=== PATIENT | female | born 1960 | race African-American/Black ===

== ENCOUNTER 2025-03-10 06:10 | Inpatient (IN) | payer MEDICARE, MEDICAID, SELFPAY ==
[2025-03-10] VITALS (9 sets, daily range): BP systolic 152–180; BP diastolic 76–98; PULSE 86–110; RESP 14–24; TEMP 36.2–36.7; O2SAT 96–100; BMI 45.2
--- NOTE | 2025-03-10 | ECHO_ITS ---
Patient Info Name: Emily Ibrahim Age: 64 years : 1960 Gender: Female Ht: 60 in Wt: 231 lbs BSA: 2.17 m2 HR: 110 bpm BP: 180 / 83 mmHg Technical Quality: Poor Exam Date: 03/10/2025 1:58 PM Patient Status: O Admit Date: 03/10/2025 Exam Type: CA echo doppler color flow Complete two-dimensional, color flow and Doppler transthoracic echocardiogram is performed. Staff Referring Physician: Joanie Carmen Automation Manager: Kathrin Restrepo Attending Provider: Андрей Sarkar Summary 1. Complete two-dimensional, color flow and Doppler transthoracic echocardiogram is performed. 2. Technically difficult study and patient refuse to complete full study ECHO. 3. In the available views, there is normal left ventricular size with hyperdynamic systolic function. 4. The right ventricle is normal in size and systolic function. 5. There are no significant valvular abnormalities. Left Ventricle The left ventricle is normal in size with hyperdynamic systolic function. There is concentric left ventricular remodeling. The left ventricular ejection fraction is visually estimated to be greater than 70%. Right Ventricle The right ventricle is normal in size and systolic function. Left Atria The left atrium is normal size. Right Atria The right atrium is normal size. Atrial Septum The atrial septum is not well visualized. Aortic Valve The aortic valve is trileaflet and sclerotic. There is no aortic regurgitation. There is no aortic stenosis. Pulmonic Valve The pulmonic valve is not well visualized. Mitral Valve The mitral valve is normal. There is no mitral regurgitation. Tricuspid Valve The tricuspid valve is normal. There is mild tricuspid regurgitation. Pericardium/Pleural There is trivial pericardial effusion. Inferior Vena Cava Inferior vena cava is not well visualized. Aorta The aortic root at the level of the sinus of Valsalva measures 2.8 cm in diameter. Left Ventricular Outflow Tract Name Value Normal LVOT 2D LVOT Diameter 1.9 cm LVOT Doppler LVOT Peak Velocity 123 cm/s LVOT Peak Gradient 6 mmHg LVOT Mean Gradient 4 mmHg LVOT VTI 21 cm LVOT VTI/AV VTI Ratio 0.6 LVOT Stroke Volume 61 ml LVOT CO 7.1 l/min LVOT CI 3.3 l/min/m2 Pulmonic Valve Name Value Normal PV Doppler PV Peak Velocity 150 cm/s PV Peak Gradient 9 mmHg Tricuspid Valve Name Value Normal TV Regurgitation Doppler TR Peak Velocity 321 cm/s TR Peak Gradient 27 mmHg Estimated PAP/RSVP RA Pressure 10 mmHg <=5 PA Systolic Pressure 51 mmHg <36 RV Systolic Pressure 51 mmHg <36 TV Annular TDI TV Lateral Kita s' Velocity 14.7 cm/s >=9.5 Aortic Valve Name Value Normal AV Doppler AV Peak Velocity 196 cm/s AV Peak Gradient 15 mmHg AV Mean Gradient 8 mmHg AV VTI 34 cm AV Area (Cont Eq VTI) 1.8 cm2 >=3.0 AV Area (Cont Eq Johnathon) 1.8 cm2 AV DI (Johnathon) 0.63 AV Regurgitation 2D LVOT Area 2.9 cm2 Ventricles Name Value Normal LV Dimensions 2D/MM IVS Diastolic Thickness (2D) 1.1 cm 0.6-1.0 LVID Diastole (2D) 4.2 cm 3.8-5.2 LVIW Diastolic Thickness (2D) 1.2 cm 0.6-0.9 LVID Systole (2D) 2.4 cm 2.2-3.5 LVOT Diameter 1.9 cm LV Mass (2D Cubed) 174.48 g 67.00-162.00 LV Mass Index (2D Cubed) 80 g/m2 43-95 Relative Wall Thickness (2D) 0.59 <=0.42 LV Fractional Shortening/Ejection Fraction 2D/MM LV Fractional Shortening (2D) 43 % 27-45 LV EF (2D Teichholz) 75 % Atria Name Value Normal LA Dimensions LA Volume (4C A-L) 56 ml LA Volume (BP A-L) 50 ml RA Dimensions RA Systolic Major [place] Length (4C) 4.6 cm 2.2-2.8 RA Area (4C) 13.2 cm2 <=18.0 Report Signatures
--- NOTE | ~2025-03-10 | CT_ITS ---
CLINICAL INDICATION: End-stage renal disease now nonverbal with malnutrition. COMPARISON: None. TECHNIQUE: An enhanced CT of the abdomen and pelvis was performed utilizing multislice spiral Saygent ue reconstructed at 5 mm slice thickness. Coronal and sagittal reconstructions were performed. This CT examination was performed utilizing dose reduction techniques. DLP: 1665 mGy-cm FINDINGS/OBSERVATIONS: Lung: Trace bibasilar atelectasis. Calcified nodule within the left lower lobe suggesting prior granulomatous disease. No retrocardiac density is appreciated on cross sectional imaging. The remainder of the lungs are clear. The heart is enlarged, without pericardial effusion. Mediastinum: No pathologically enlarged or morphologically suspicious lymph nodes are identified within the medias tinum, bilateral axilla, within the soft tissues of the anterior chest wall. Soft tissues of the chest: Heterogeneous attenuation of the thyroid gland, a nonspecific finding. Bones of the chest: No acute fracture. No lytic or blastic lesions are identified. Liver: The liver enhances homogeneously and is not enlarged. Gallbladder and biliary system: The gallbladder is distended, but otherwise unremarkable. Pancreas: The pancreas enhances homogeneously, without ductal dilatation. Spleen: Punctate calcifications identified within the splenic parenchyma, suggesting prior granulomat ous disease. The remainder of the spleen otherwise enhances homogeneously and is not enlarged. Kidneys: The bilateral kidneys are atrophic, without hydronephrosis or renal calculi. Adrenal glands: Unremarkable. Gastrointestinal tract: Small hiatal hernia is present. Fecal stasis within the colon. Appendix: The air-filled appendix is of normal caliber (axial series, images 170 through 203). Vasculature: Moderate calcified atherosclerotic disease is present. No aneurysmal dilatation. Lymph nodes: Scattered nonpathologically enlarged lymph nodes within the root of the mesentery and deep in the pel vis. Pelvic structures: The bladder is only minimally distended and otherwise unremarkable. The uterus is retroverted and retroflexed and contains multiple calcifications, likely representing p rior fibroid disease. Body wall and musculoskeletal: An oval-shaped focus of fluid attenuation is identified within the soft tissues of the anterior abdom inal wall measuring 3.6 x 5.7 x 5.7 cm (anterior to posterior x medial to lateral x cranial to caudal dimension). Adjacent postoperative change is noted, suggesting a perioperative seroma. Age-appropriate degenerative disease. IMPRESSION: Likely perioperative seroma along the anterior abdominal wall. Findings suggesting prior granulomatous disease. No evidence of bowel obstruction. No hiatal hernia as was suspected on the plain film evaluation. Reviewed, dictated and finalized at location A.
--- NOTE | ~2025-03-10 | XR_ITS ---
XR chest 1V portable Ordering provider: Joanie Carmen MD History: 64 years Female with . AMS . Comparison: None. FINDINGS: MEDIASTINUM: The cardiac silhouette is moderately enlarged.. Congestive leti. LUNGS: No effusions or pneumothorax. Opacification the left lower lobe is seen suggestive of atelecta sis versus pneumonia with possible effusion. Bilateral septal thickening is seen which may indicate u nderlying pulmonary edema. Clinical correlation advised. OTHER: No free air under the diaphragm. IMPRESSION: Cardiomegaly with congestive leti and minimal interstitial thickening which is suggestive of cardiac decompensation and pulmonary edema. Left basilar atelectasis versus pneumonia with possible. Clinical correlation and follow-up advised. Reviewed, dictated and finalized at location A. IMPRESSION: Cardiomegaly with congestive leti and minimal interstitial thickening which is suggestive of cardiac decompensation and pulmonary edema. Left basilar atelectasis versus pneumonia with possible. Clinical correlation a nd follow-up advised.
--- NOTE | ~2025-03-10 | XR_ITS ---
EXAMINATION: XR abdomen gastric tube rechec DATE: 03/21/2025 18:24 INDICATION: Nasogastric tube visible on the mouth TECHNIQUE: A supine view of the abdomen and lower chest was obtained for evaluation of feeding tube placement. COMPARISON: None. FINDINGS: Nasogastric tube tip in proximal side port project over the body the stomach. No dilated loops of gas -filled bowel in the visualized abdomen pelvis to suggest obstruction. Calcified nodule left lower margie ng zone and calcified left hilar lymph nodes consistent with old granulomatous disease. Heart size is normal. No pleural effusion. IMPRESSION: 1. Nasogastric tube tip in proximal side port in the body the stomach. Reviewed, dictated and finalized at location A.
--- NOTE | ~2025-03-10 | XR_ITS ---
EXAMINATION: XR abdomen gastric tube rechec DATE: 03/21/2025 22:17 INDICATION: Nasogastric tube placement TECHNIQUE: A supine view of the abdomen and lower chest was obtained for evaluation of feeding tube placement. COMPARISON: 03/21/2025 at 7:43 PM FINDINGS: Nasogastric tube tip in proximal side port in the body the stomach. Small amount of likely injected c ontrast within the stomach. No dilated gas-filled bowel to suggest obstruction. Calcified nodule at t he left lower lung zone consistent with old granulomatous disease. No pleural effusion. Heart size is normal. IMPRESSION: 1. Nasogastric tube tip and proximal side port in the body the stomach. Reviewed, dictated and finalized at location A.
--- NOTE | ~2025-03-10 | US_ITS ---
EXAM: US carotid duplex BI - 03/21/2025 9:02 CDT History: 64 years old Female with episode of change in mental status Technique: Real-time sonographic images of the bilateral carotid and vertebral arterial systems were obtained. Color Doppler sonography and spectral waveform analysis were performed. Comparison: None available. Findings: . Right Velocities (cm/sec): Right Common carotid Peak systolic velocity: 47 Right internal carotid Peak systolic velocity: 45 End diastolic velocity: 12 Right ICA/CCA ratio: 1 Right External carotid Peak systolic velocity: 108 Right Vertebral: Antegrade flow Left Velocities (cm/sec): Left Common carotid Peak systolic velocity: 51 Left internal carotid Peak systolic velocity: 83 End diastolic velocity: 28 Left ICA/CCA ratio: 1.6 Left External carotid Peak systolic velocity: 78 Left Vertebral: Antegrade flow Impression: No evidence of flow-limiting stenosis in the carotid arteries. Reviewed, dictated and finalized at location A. Impression: No evidence of flow-limiting stenosis in the carotid arteries.
--- NOTE | ~2025-03-10 | MR_ITS ---
EXAMINATION: MR brain/brain stem wo con DATE: 03/18/2025 13:41 INDICATION: ams TECHNIQUE: Magnetic resonance imaging (MRI) of the brain and brainstem was performed without intraven ous contrast. Sequences included sagittal and axial T1-weighted SE, axial diffusion-weighted, axial 3 D CYDNEY, eADC, and MIN IP, axial T2-weighted FLAIR, and axial T2-weighted Propeller. Apparent diffusi on coefficient (ADC) maps were created. COMPARISON: CT brain 03/10/2025. FINDINGS: Severe motion artifact is present. Multiple sequences are nondiagnostic. No large area of abnormal re stricted diffusion to suggest acute ischemic infarct although this evaluation is limited. No MRI evid ence of large hemorrhage or extra-axial collection although this determination is again limited. Sugg estion of left medial occipital susceptibility artifact could be related to subtle calcification or h emosiderin deposition or simply artifactual. Severe confluent or patchy and confluent white matter hy perintensity, likely representing severen small vessel ischemic disease. Mild generalized parenchymal volume loss. The basilar cisterns are patent. Flow voids are preserved, as visualized. Paranasal sin uses are grossly within normal limits. Displaced lens in the right globe. IMPRESSION: Severely motion limited examination. No definite evidence of large intracranial hemorrhage or large vessel infarct. Displaced lens in the right globe. Consider repeat imaging, with sedation if clinically appropriate. Reviewed, dictated and finalized at location K.
--- NOTE | ~2025-03-10 | XR_ITS ---
EXAMINATION: XR lumbar puncture diagnostic DATE: 03/21/2025 15:22 INDICATION: Altered mental status TECHNIQUE: After informed consent was obtained from the patient's family, the patient was taken into the fluoros copy suite and placed in the prone position on the fluoroscopy table. A limited timeout was then performed as per protocol (given patient's nonverbal status). The skin overlying the L3/L4 level was prepped and draped in usual sterile fashion. Subcutaneous 1% lidocaine was used for local anesthesia. An 18 gauge spinal needle was advanced under fluoroscopic gu idance. The needle was removed and the entry site was cleaned and dressed. There were no immediate c omplications. Fluoroscopy exposure time was 2.7 minutes. The total number of images was 2. DOSE AREA PRODUCT: 18.9 Gy-cm2 FINDINGS: Real-time fluoroscopy demonstrates the needle at the L3/L4 level. No opening pressure was obtained, given the observed slow output from the spinal access needle. 22 mL of clear, colorless cerebrospinal fluid was collected in 4 separate tubes and sent for the requ ested studies. IMPRESSION: Technically successful fluoroscopy-guided lumbar puncture at the level of L3/L4, as detailed above. Reviewed, dictated and finalized at location A. IMPRESSION: Technically successful fluoroscopy-guided lumbar puncture at the level of L3/L4 , as detailed above.
--- NOTE | ~2025-03-10 | XR_ITS ---
EXAMINATION: XR abdomen gastric tube rechec DATE: 03/21/2025 19:46 INDICATION: Nasogastric tube placement TECHNIQUE: A supine view of the abdomen and lower chest was obtained for evaluation of feeding tube placement. COMPARISON: 03/21/2025 at 6:06 PM FINDINGS: Nasogastric tube has advanced with distal tip in proximal side port in the region of the gastric antr um. No dilated loops of gas-filled bowel in the visualized upper abdomen. Calcified nodule left lower lung zone consistent with old granulomatous disease. No other airspace opacities, pulmonary edema or pleural effusion. Heart size is normal. IMPRESSION: 1. Is a gastric tube tip in proximal side port at the gastric antrum. Could consider withdrawal by [address] the tip in proximal side port in the distal body of the stomach. Reviewed, dictated and finalized at location A. IMPRESSION: 1. Is a gastric tube tip in proximal side port at the gastric antrum. Could con outpatient admitting clerk withdrawal by [address] the tip in proximal side port in the distal body of the stomach.
--- NOTE | ~2025-03-10 | XR_ITS ---
Portable chest x-ray Comparison: 03/10/2025 Clinical History: Pulmonary edema Findings: Possible mild bibasilar haziness, left worse than right. Cardiomediastinal silhouette is stable. Bones and soft tissues are unremarkable. Impression: Possible mild bibasilar pulmonary edema. Consider pneumonia in the left lung base. Reviewed, dictated and finalized at [facility]. Impression: Possible mild bibasilar pulmonary edema. Consider pneumonia in the left lung ba se.
--- NOTE | ~2025-03-10 | XR_ITS ---
EXAMINATION: XR chest 1V portable Exam Date/Time: 03/22/2025 16:15 CDT HISTORY: Critical ABGs Comparison: 03/22/2025. RESULT: Lines, tubes, and devices: Dialysis catheter, terminating in the right atrium. Lungs and pleura: Clear. Cardiomediastinal silhouette: Stable. Other: No acute osseous or upper abdominal finding. IMPRESSION: No acute cardiopulmonary process. Reviewed, dictated and finalized at location K.
--- NOTE | ~2025-03-10 | XR_ITS ---
EXAMINATION: XR chest 1V portable Exam Date/Time: 03/22/2025 18:03 CDT HISTORY: intubation Comparison: Same date at 4:19 PM. FINDINGS/IMPRESSION: Interval intubation, endotracheal tube terminates 2.3 cm above the iris. Stable right IJ dialysis c atheter. Stable subdiaphragmatic NG tube. Increasing patchy groundglass and reticular opacities may represent interstitial edema and atelectasi s. Infection/aspiration not excluded Reviewed, dictated and finalized at location K.
--- NOTE | ~2025-03-10 | CT_ITS ---
EXAMINATION: CT brain wo con DATE: 03/22/2025 20:55 INDICATION: ams . TECHNIQUE: Computed tomography (CT) of the head was performed without intravenous contrast. The mA wa s adjusted according to patient size. Iterative reconstruction technique was employed. The dose-lengt h product was 681.00 mGy-cm. COMPARISON: 03/10/2025; MR brain 03/18/2025. FINDINGS: No acute intracranial hemorrhage or extra-axial fluid collection. No hydrocephalus, mass, or herniation. No acute ischemic infarct. Unremarkable dural venous sinus attenuation. No acute osseous abnormality. Nasogastric tube with mild nasopharyngeal and right sphenoid aerated secretions. The remaining aerate d spaces are clear. Mild atrophy and severe chronic white matter change. Focal old bilateral thalamic lacunar infarcts. A therosclerotic intracranial calcification. Displaced right lens. Left basal ganglia calcification. IMPRESSION: No acute intracranial process. Reviewed, dictated and finalized at location K.
--- NOTE | ~2025-03-10 | XR_ITS ---
EXAMINATION: XR soft tissue neck DATE: 03/21/2025 18:29 INDICATION: Nasogastric tube coiled in the mouth TECHNIQUE: AP and lateral views of the soft tissues of the face and neck were obtained. COMPARISON: Abdomen radiograph dated 03/21/2025 6:06 PM FINDINGS: The nasogastric tube extends through the left nasal cavity and coils in the oral cavity bef ore extending caudally in expected position to at least the distal esophagus on the current imaging w ith distal tip in proximal side port projecting over the body the stomach on the immediately prior ab domen radiograph. Prevertebral soft tissues are unremarkable. Calcified nodule projecting over the le ft midlung zone along with calcified left mediastinal lymph nodes consistent with old granulomatous d isease. Remainder the visualized lungs are clear. IMPRESSION: 1. Nasogastric tube coils in the oral cavity before extending caudally through the esophagus. Reviewed, dictated and finalized at location A.
--- NOTE | ~2025-03-10 | XR_ITS ---
CHEST RADIOGRAPH CLINICAL HISTORY: Trialysis placement . COMPARISON: 03/19/2025 TECHNIQUE: Single portable view of the chest. FINDINGS Nasogastric tube identified projecting into the left upper quadrant, presumably within the stomach. Interval placement of a temporary hemodialysis catheter with its tip projecting over the proximal rig ht atrium, in good position. No right-sided pneumothorax is appreciated. The remainder of the cardiomediastinal silhouette is otherwise unremarkable. Interval improvement of the left-sided pleural effusion, seen on previous examination. The right hemithorax is overall clear. IMPRESSION: Temporary hemodialysis catheter in good position and ready for immediate use. Reviewed, dictated and finalized at location A.
--- NOTE | ~2025-03-10 | XR_ITS ---
Exam: NG tube placement HISTORY: Minimally responsive 64-year-old woman presents after failed NG tube placement on the floor for image guided placement COMPARISON: Reference is made to a CT examination of the chest abdomen and pelvis dated 03/20/2025. TECHNIQUE: Utilizing a pediatric NG tube, placement was performed via the left nares. Tube was hooked to suction with copious amounts of gastric contents evacuated. FINDINGS: Nasogastric tube extends into the left upper quadrant, presumably within the stomach. IMPRESSION: Nasogastric tube in good position and ready for immediate use. Reviewed, dictated and finalized at location A.
--- NOTE | ~2025-03-10 | CT_ITS ---
CT head without contrast Indication: Altered mental status Technique: Serial scans were obtained through the brain without the administration of contrast. Dose reduction technique was used on this scan by utilizing automated exposure control and iterative recon struction technique. The dose-length product (DLP) was 1362.00 mGy-cm. Findings: There is no evidence of intracranial hemorrhage, mass lesion, or acute infarct. The ventri cles and subarachnoid spaces are dilated, consistent with mild atrophy. Low attenuation regions are seen within the periventricular white matter bilaterally, likely representing changes from chronic mi crovascular ischemic disease. There is no evidence of edema, mass effect or midline shift. The visu alized paranasal sinuses and mastoid air cells are clear. Impression: No intracranial hemorrhage, mass, or acute infarct. Atrophy and chronic white matter changes, as above. Reviewed, dictated and finalized at location . Impression: No intracranial hemorrhage, mass, or acute infarct. Atrophy and chronic white matter changes, as above.
--- NOTE | ~2025-03-10 | XR_ITS ---
XR chest 1V portable 03/19/2025 11:07 Indication: Shortness of breath Procedure: AP portable chest Comparison: 03/16/2025 Findings: Cardiomegaly. Retrocardiac consolidation may represent pneumonia and/or atelectasis. Possib le small effusion. No pneumothorax. Impression: 1: Retrocardiac opacification may represent pneumonia and/or atelectasis. Reviewed, dictated and finalized at location A. Impression: 1: Retrocardiac opacification may represent pneumonia and/or atelectasis.
--- NOTE | 2025-03-10 06:24 | ECG_ITS ---
Test Date: 2025-03-10 07:28:46 Measurements Intervals [place] Rate: 90 P: 66 [place]: 161 QRS: -41 QRSD: 142 T: 31 QT: 421 QTc: 516 Interpretive Statements SINUS RHYTHM POSSIBLE LEFT ATRIAL ENLARGEMENT [-0.1mV P-WAVE IN V1/V2] LEFT AXIS DEVIATION [QRS AXIS < -30] RIGHT BUNDLE BRANCH BLOCK [120+ ms QRS DURATION, UPRIGHT V1, 40+ ms S IN I/aVL/V4/V5/V6] ABNORMAL ELECTROCARDIOGRAM No previous ECG available for comparison Electronically Signed On 03-11-2025 09:49:23 CDT by Nir Gagnon M.D.
--- NOTE | 2025-03-10 07:22 | PC.NURSE ---
Unable to obtain blood at this time, EDP aware states she will try for IV access and blood work when pt has calmed down
--- NOTE | 2025-03-10 07:33 | ED_ITS ---
HPI - Altered Mental Status General Chief Complaint: Altered Mental Status Stated Complaint: AMS FROM HD Time Seen by Provider: 03/10/25 06:59 History of Present Illness HPI narrative: Patient with history of ESRD on dialysis Monday presents here after dialysis noticed that she had been more confused for the last few sessions, sent here from dialysis. Patient is denying any complaints other than she is angry to be here. at bedside, reports the last time she has been confused has been due to UTI. Related Data Allergies Allergy/AdvReac Type Severity Reaction Status Date / Time Penicillins Allergy Unknown Verified 03/10/25 07:31 Review of Systems 2 Review of Systems: All systems reviewed & are unremarkable except as noted in HPI and below Exam 2 Narrative: EXAMINATION OF ORGAN SYSTEMS/BODY AREAS: Constitutional: Vital signs per nursing GENERAL:[No acute distress, non-toxic appearing.] HEAD: Normal with no signs of head trauma. EYES: EOMI, conjunctiva normal ENT: Hearing grossly intact LUNGS: Nonlabored breathing. HEART: [Regular rate and rhythm] ABD: [Soft], [nontender to palpation] EXT: Normal range of motion; numbing cream still on left AV SKIN: [No rashes or lesions.] NEURO: [Alert. No gross focal sensory or strength deficits. Unable to tell me her name or why she is here] PSYCH: Kicking out at myself and staff, uncooperative Course Vital Signs Vital signs: Vital Signs Temperature 98.1 F 03/10/25 06:18 Pulse Rate 96 03/10/25 06:18 Respiratory Rate 18 03/10/25 06:18 Blood Pressure 170/80 H 03/10/25 06:18 Pulse Oximetry 100 03/10/25 06:18 Oxygen Delivery Room Air 03/10/25 06:18 Temperature 98.1 F 03/10/25 06:18 Pulse Rate 103 H 03/10/25 12:16 Respiratory Rate 16 03/10/25 12:16 Blood Pressure 163/81 H 03/10/25 12:16 Pulse Oximetry 97 03/10/25 12:16 Oxygen Delivery Room Air 03/10/25 06:18 Procedures EJ/Peripheral Line Arm R: EJ/Peripheral Line Date: 03/10/25 EJ/Peripheral Line Time: 09:16 Skin Cleansed in Sterile Fashion: Yes Ultrasound Guided: Yes Size (gauge): 20 IV Secured and Dressing Applied: Yes Patient Tolerated Procedure: well and no complications MDM - Altered Mental Status MDM Narrative Medical decision making narrative: Patient presents here due to altered mental status that has been ongoing for a week; sent here from dialysis. Patient no distress, alert here and moving all extremities, however extremely uncooperative and unable to answer basic orientation questions. Long discussion with patient and at bedside. Patient does not demonstrate capacity at this time, she is unable to even tell me her name or why she is here, she tells me to get out of her room and that she will christen me; per her in the room, she is never like this, he has never seen her so violent and confused before, he is her medical decision maker and would like us to proceed with continuing with workup and treatment is needed to figure out why she has been confused. He requests we put her to sleep to accomplish this. I did initially start with small dose of olanzapine, unfortunately no significant improvement in behavior. Additional ativan ordered. EKG - 12-Lead: Performed at 0728. Interpreted by me. Difficult to fully evaluate due to artifact [Sinus rhythm]. Rate 90. [Normal] axis. IL-interval 161. QRS duration 142. QTc 516. [No ST segment elevation or depression]. USIV and blood draw obtained by myself with nursing assistance and assistance from at bedside. Chest x-ray showing possible pneumonia, and she has been coughing here at bedside, so I will tentatively start her on antibiotics, discussed with associate merchandise planner and hospitalist for admission. Re-evaluation, she is a little bit more back to her baseline, is now able to state her name. Lab Data 03/10/25 09:17 03/10/25 09:17 Labs: Lab Results 03/10/25 03/10/25 Range/Units 09:17 09:39 WBC 7.1 (4.5-10.0) K/mm3 RBC 4.08 L (4.2-5.4) M/mm3 Hgb 10.8 L (12.0-15.0) g/dL Hct 35.3 L (37.0-47.0) % MCV 86.5 (80-100) fl MCH 26.5 (26-34) pg MCHC 30.6 L (32-36) g/dl RDW 17.1 H (11.5-14.5) % Plt Count 325 (150-375) k/mm3 MPV 9.6 (7.4-10.4) fl Immature Gran % (Auto) 0.3 (0-0.5) % Neut % (Auto) 51.3 (45.5-73.1) % Lymph % (Auto) 28.3 (18.3-44.2) % Camp % (Auto) 15.1 H (2.6-8.5) % Eos % (Auto) 3.9 (0-4.4) % Baso % (Auto) 1.1 (0.2-1.2) % Lymph # (Auto) 2.01 (0.9-3.2) K/mm3 Camp # (Auto) 1.1 H (0.1-0.6) K/mm3 Eos # (Auto) 0.3 (0-0.3) K/mm3 Baso # (Auto) 0.1 (0.0-0.1) K/mm3 Abs Immat Gran (auto) 0.02 (0.00-0.031) K/mm3 Absolute Neuts (auto) 3.6 (1.3-6.7) K/mm3 Absolute Nucleated RBC 0.000 (0.0-0.012) K/mm3 Nucleated RBC % 0.0 (0.0-0.2) % PT 13.1 (11.1-14.7) Seconds INR 1.0 APTT 27.3 (22.3-36.8) Seconds Sodium 139 (137-145) mmol/L Potassium 3.9 (3.4-5.0) mmol/L Chloride 105 (98-107) mmol/L Carbon Dioxide 26 (22-30) mmol/L Anion Gap 8 (4-12) mmol/L BUN 18 H (7-17) mg/dL Creatinine 8.64 H (0.7-1.0) mg/dL Estim Creat Clear Calc 7 ml/min Estimated GFR 5 L (59 - ) Glucose 100 (65-110) mg/dL Lactic Acid 1.2 (0.7-2.0) mmol/L Calcium 9.6 (8.4-10.2) mg/dL Magnesium 2.1 (1.6-2.3) mg/dL Total Bilirubin 0.9 (0.2-1.3) mg/dL AST 25 (14-36) U/L ALT 9 (6-35) U/L Alkaline Phosphatase 104 (38-126) U/L Total Protein 6.6 (6.3-8.2) g/dL Albumin 3.5 (3.5-5.1) g/dL Urine Color Yellow (Yellow) Urine Appearance Clear (Clear) Urine pH 8.5 (5.0-9.0) Ur Specific Christine 1.013 (1.001-1.035) Urine Protein 3+ H (Negative) mg/dL Urine Glucose (UA) Trace H (Negative) mg/dL Urine Ketones Trace H (Negative) mg/dL Ur Blood (Man) Negative (Negative) Urine Nitrate Negative (Negative) Urine Bilirubin Negative (Negative) Urine Urobilinogen 1.0 (<2.0) mg/dL Add Ur Microanalysis Reviewed Leukocyte Esterase Rfl Negative (Negative) NATALIE/UL Urine RBC 0-2 (0-2) /hpf Urine WBC 0-5 (0-3) /hpf Ur Squamous Epith Cells Occasional (Few) /hpf Urine Bacteria None seen /hpf Urine Casts 3-5 Discharge Plan Discharge Clinical Impression: Altered mental status, Pneumonia Patient Disposition: Still a Patient Condition: Stable
--- OUTSIDE RECORDS SUMMARY | 2025-03-10 07:38 | XMS_ITS ---
Author Organization [facility] Address [address] [place] [address] Care Team Providers Care Site Supervisor Name Role Phone Reyes Motley DO Primary Care Prov ider Edgardo Luong MD Unavailable [phone] Reyes Hawley MD Unavailable [phone] Ntetie Etienne MD Unavailable [phone] Dialysis Access Sites Type Status Location Placement Date Removal Da te AV graft Active Left Forearm - Anterior 01/03/2022 Procedures Procedure Name Priority Date/Time Associated Diagnosis Comments US HEMODIALYSIS ACCESS Schedule Routine, Read Routine (OP Routine) 01/30/2025 2:36 PM CDT ESRD (end stage renal disease) on dialysis (HCC) Other specified complication of vascular prosthetic devices, implants and grafts, initial encounter EGFR Routine 01/24/2025 8:38 AM CDT DIFFERENTIAL AUTO Routine 01/24/2025 8:3 8 AM CDT CBC WITH AUTO DIFFERENTIAL Routine 01/24/2025 8:38 AM CDT RENAL FUNCTION PANEL Routine 01/24/2025 8:38 AM CDT POCT GLUCOSE DEVICE Routine 01/24/2025 8 :16 AM CDT HEMODIALYSIS Routine 01/23/2025 10:19 PM CDT POCT GLUCOSE DEVICE Routine 01/23/2025 7 :[address] ABDOMEN PELVIS WO CONTRAST ED Urgent/IP Urgent 01/23/2025 12:23 PM CDT EGFR Routine 01/23/2025 7:09 AM CDT RENAL FUNCTION PANEL Routine 01/23/2025 7:09 AM CDT POCT GLUCOSE DEVICE Routine 01/23/2025 5 :36 AM CDT POCT GLUCOSE DEVICE Routine 01/22/2025 7 :57 PM CDT POCT GLUCOSE DEVICE Routine 01/22/2025 4 :08 PM CDT POCT GLUCOSE DEVICE Routine 01/22/2025 1 2:09 PM CDT HEMODIALYSIS Routine 01/22/2025 7:49 AM CDT POCT GLUCOSE DEVICE Routine 01/22/2025 7 :28 AM CDT EGFR Routine 01/22/2025 6:12 AM CDT DIFFERENTIAL AUTO Routine 01/22/2025 6:1 2 AM CDT CBC WITH AUTO DIFFERENTIAL Routine 01/22/2025 6:12 AM CDT RENAL FUNCTION PANEL Routine 01/22/2025 6:12 AM CDT POCT GLUCOSE DEVICE Routine 01/22/2025 5 :44 AM CDT HEPATITIS B SURFACE ANTIGEN Routine 01/21/2025 11:36 PM CDT HEPATITIS B SURFACE ANTIBODY (IMMUNE STATUS) Routine 01/21/2025 11:36 PM CDT POCT GLUCOSE DEVICE Routine 01/21/2025 8 :24 PM CDT POCT GLUCOSE DEVICE Routine 01/21/2025 4 :44 PM CDT POCT GLUCOSE DEVICE Routine 01/21/2025 1 1:39 AM CDT POCT GLUCOSE DEVICE Routine 01/21/2025 7 :40 AM CDT EGFR Routine 01/21/2025 6:55 AM CDT DIFFERENTIAL AUTO Routine 01/21/2025 6:5 5 AM CDT RENAL FUNCTION PANEL Routine 01/21/2025 6:55 AM CDT CBC WITH AUTO DIFFERENTIAL Routine 01/21/2025 6:55 AM CDT POCT GLUCOSE DEVICE Routine 01/20/2025 1 1:05 PM CDT TROPONIN T HIGH-SENSITIVITY 4-HR Timed 01/20/2025 7:25 PM CDT URINALYSIS, MICROSCOPIC ONLY STAT 01/20/2025 6:03 PM CDT TROPONIN T HIGH-SENSITIVITY 2-HOUR Timed 01/20/2025 6:03 PM CDT URINALYSIS AND REFLEX TO MICROSCOPIC AND CULTURE STAT 01/20/2025 6:[address] HEAD AND NECK WO CONTRAST (C) Critical/Life-T hreatening 01/20/2025 3:43 PM CDT EGFR STAT 01/20/2025 3:21 PM CDT COMPREHENSIVE METABOLIC PANEL STAT 01/20/2025 3:21 PM CDT TROPONIN T HIGH-SENSITIVITY SERIES (BASELINE, 2HR, 4HR, 6HR) STAT 01/20/2025 3:21 PM CDT POC BLOOD GAS AND CHEMISTRIES, VENOUS Routine 01/20/2025 2:54 PM CDT EGFR STAT 01/20/2025 2:26 PM CDT DIFFERENTIAL AUTO STAT 01/20/2025 2:2 6 PM CDT APTT STAT 01/20/2025 2:26 PM CDT PROTIME-INR STAT 01/20/2025 2:26 PM CDT COMPREHENSIVE METABOLIC PANEL STAT 01/20/2025 2:26 PM CDT CBC WITH AUTO DIFFERENTIAL STAT 01/20/2025 2:26 PM CDT ECG 12-LEAD STAT 01/20/2025 2:[address] STROKE PROTOCOL WO CONTRAST Critical/Life-T hreatening 01/20/2025 2:12 PM CDT POCT GLUCOSE DEVICE Routine 01/20/2025 2 :06 PM CDT POCT GLUCOSE DEVICE Routine 01/07/2025 1 2:19 PM CDT FL FLUOROSCOPY < 1 HOUR IP Routine 01/07/2025 11:54 AM CDT AK AN PROCEDURE PLACEHOLDER Routine 01/07/2025 11:25 AM CDT AK AN ELECTIVE SUPRAGLOTTIC AIRWAY Routine 01/07/2025 11:25 AM CDT DECLOTTING ARTERIOVENOUS - ARM 01/07/2025 11:09 AM CDT ESRD (end stage renal disease) on dialysis (HCC) POC BLOOD GAS AND CHEMISTRIES, VENOUS Routine 01/07/2025 9:57 AM CDT HEMOGLOBIN A1C Routine 01/07/2025 9:55 AM CDT EGFR STAT 01/06/2025 9:30 AM CDT DIFFERENTIAL AUTO STAT 01/06/2025 9:3 0 AM CDT BASIC METABOLIC PANEL STAT 01/06/2025 9:30 AM CDT CBC WITH AUTO DIFFERENTIAL STAT 01/06/2025 9:30 AM CDT HEMODIALYSIS ACCESS Schedule Routine, Read Routine (OP Routine) 01/06/2025 9:18 AM CDT Dependence on renal dialysis End stage renal disease (HCC) Other specified complication of vascular prosthetic devices, implants and grafts, initial encounter LIPID PANEL Routine 04/13/2023 10:17 AM CDT End stage renal disease (HCC) HEPATITIS C ANTIBODY Routine 04/13/2023 10:16 AM CDT End stage renal disease (HCC) OCCULT BLOOD, FECAL (FIT) Routine 04/30/2018 4:05 AM CDT from Last 3 Months or Most Recently Relevant to Health Maintenance Allergies Active Allergy Reactions Criticality Noted Date Comments Amoxicillin Itching,Nausea only,Vomiting,Hives High Reaction: Itching, Nausea, Vomiting, Hives, Ampicillin Hives,Itching,Nausea only,Vomiting High Reaction: Hives, Itching, Nausea, Vomiting, Celecoxib Nausea Only Low 06/21/2017 Cephalexin Stomach upset,Nausea And Vomiting Low 11/01/2020 Ciprofloxacin Itching Low 04/27/2020 Iodine Vomiting Low 11/21/2018 Losartan Anxiety,Nausea & Vomiting,Vomiting Low 04/29/2020 Penicillins Hives,Itching,Nausea only,Vomiting,Anaphy laxis,Nausea & Vomiting High 09/18/2014 Reaction: Hives, Itching, Nausea, Vomiting, Shellfish Hives Medium 02/06/2019 Shellfish Containing Products Hives,Itching,Stomac h upset Medium 08/15/2018 Sulfa (Sulfonamide Antibiotics) Nausea only Low 02/06/2019 04/29/2020 ok to give berny HUYNH/ Teressa PanD Trimethoprim Other (See comments) Low 05/05/2020 Medications blood pressure monitor kit Monitor blood pressure readings as instructed 1 each 11/22/19 19 Active atorvastatin (LIPITOR) 80 mg tablet Take 1 tablet (80 mg total) by mouth nightly 10/23/19 21 Active cholecalcifero l (VITAMIN D-3) 5,000 unit tabletIndicati ons:Twice weekly Take 5 tablets (25,000 Units total) by mouth 2 (two) times a week Active allopurinoL (ZYLOPRIM) 100 mg tablet Take 2 tablets (200 mg total) by mouth daily Active cyclobenzaprin e (FLEXERIL) 10 mg tabletIndicati ons:Muscle Spasm Take 1 tablet (10 mg total) by mouth 3 (three) times a day as needed 10/09/19 21 Active Contour Next Test Strips strip 08/06/20 21 Active calcitRIOL (ROCALTROL) 0.25 mcg capsule TAKE 1 CAPSULE BY MOUTH EVERY DAY 90 capsule 03/25/20 22 Active spironolactone (ALDACTONE) 50 mg tablet TAKE 1 TABLET (50 MG TOTAL) BY MOUTH EVERY OTHER DAY 45 tablet 10/28/19 23 Active lidocaine-pril ocaine cream APPLY TO ACCESS SITE 30 MINS PRIOR TO DIALYSIS 3 TIMES A WEEK 12/16/19 23 Active sevelamer (RENVELA) 800 mg tablet TAKE 1 TABLET BY MOUTH THREE TIMES A DAY WITH MEALS 11/29/19 23 Active acetaminophen 500 mg capsuleIndicat ions:Fever,Susan n Take 2 capsules (1,000 mg total) by mouth every 6 (six) hours 60 tablet 05/26/20 23 Active hydrALAZINE (APRESOLINE) 25 mg tabletIndicati ons:hypertensi on Take 1 tablet (25 mg total) by mouth 3 (three) times a day Active montelukast (SINGULAIR) 10 mg tablet Take 1 tablet (10 mg total) by mouth nightly 30 tablet 11 07/09/20 24 Active benzonatate (TESSALON) 100 mg capsule TAKE 1 CAPSULE BY MOUTH THREE TIMES A DAY NEEDED FOR COUGH 30 capsule 1 08/09/20 24 Active ondansetron (ZOFRAN) 4 mg tablet Take 1 tablet (4 mg total) by mouth every 6 (six) hours 12 tablet 10/07/19 25 Active Additional Information Patient taking differently:4 mg oralEvery 8 hours PRN, nausea, Reported on 01/30/2025 ipratropium-al buteroL (DUO-NEB) 0.5-2.5 mg/3 mL nebulizer solutionIndica tions:Cough, unspecified type,Asthma, unspecified asthma severity, unspecified whether complicated, unspecified whether persistent Take 3 mL by nebulization every 8 (eight) hours as needed for wheezing or shortness of breath 270 mL 3 11/27/19 25 Active amLODIPine (NORVASC) 10 mg tablet 12/12/19 25 Active fluticasone propionate (FLONASE) 50 mcg/actuation nasal spray Administer 2 sprays into each nostril daily 11/08/19 25 Active oxyCODONE (ROXICODONE) 5 mg immediate release tablet Take 1 tablet (5 mg total) by mouth every 12 (twelve) hours as needed for pain Active sodium chloride (OCEAN) 0.65 % drops Administer 2 sprays into affected nostril(s) every 1 hour as needed 10/13/19 24 Active albuterol HFA (PROVENTIL HFA,VENTOLIN HFA,PROAIR HFA) 90 mcg/actuation inhaler Inhale 2 puffs every 4 (four) hours as needed for wheezing 1 each 11 12/13/19 25 Active cetirizine (ZyrTEC) 10 mg tablet Take 0.5 tablets (5 mg total) by mouth daily 15 tablet 3 12/13/[address] (PROTONIX) 40 mg EC tablet TAKE 1 TABLET BY MOUTH EVERY DAY 90 tablet 01/02/20 25 Active aspirin 81 mg enteric coated tablet Take 1 tablet (81 mg total) by mouth daily 12/17/19 25 Active famotidine (PEPCID) 20 mg tablet Take 1 tablet (20 mg total) by mouth 2 (two) times a day Active carvediloL (COREG) 6.25 mg tablet Take 1 tablet (6.25 mg total) by mouth 2 (two) times a day with meals Active fluticasone propion-salmet Abdon (Wixela Inhub) 250-50 mcg/dose diskus inhaler INHALE 1 PUFF 2 (TWO) TIMES A DAY RINSE MOUTH WITH WATER AFTER USE 60 each 2 02/25/20 25 Active fluticasone propion-salmet Abdon (Wixela Inhub) 250-50 mcg/dose diskus inhaler INHALE 1 PUFF 2 (TWO) TIMES A DAY RINSE MOUTH WITH WATER AFTER USE 60 each 01/28/20 25 025 Discontinued Active Problems Problem Noted Date Diagnosed Date Nausea 01/23/2025 Acute encephalopathy 01/20/2025 ESRD (end stage renal disease) on dialysis 01/06 Assessment & Plan (01/30/2025 2:52 PM CDT): Status post left forearm loop thrombectomy 01/07/2025. Patient is dialyzing without any issues good bruit and thrill on exam. Sutures intact and removed in the office today. Follow up in the [facility] in 3 months for routine surveillance with AV duplex. SBO (small bowel obstruction) 05/23/2023 Assessment & Plan (05/27/2023 12:50 PM CDT): CT AP w/ IV contrast with 3 ventral wall hernias; middle and inferior hernia with bowel. Inferiormost hernia with at least partial SBO and mesenteric edema. Abdomen soft and moderately TTP Left of umbilicus with no rebound tenderness, non- peritonitic -NPO, NGT to ILWS, serial abdominal exams, daily labs, no mIVF as ESRD and anuric, will replete NGT output as needed 05/23 AFVSS, abd soft, TTP neo-umbilicus, NGT 400cc output, inconsistent flatus, CTM 05/24 abd. soft; +flatus, no BM, NG 1.1L 05/25 abd remains soft, +flatus, NG output 350, NG clamp trial passed and NG removed 05/26 CLD started and advanced to regular, awaiting BM 05/27: Tolerating regular diet. -n/v. +flatus. -BM, however she typically has a bowel movement every few days. HDS. Afebrile. Plan: discharge home today with family. No surgery completed during this admission, no surgical pathology pending, no cultures pending. No general surgery follow-up required. Follow-up with PCP for ongoing healthcare management. Gout 05/23/2023 Assessment & Plan (05/23/2023 9:52 AM CDT): Hold home allopurinol and prn colchicine while NPO Diastolic heart failure with preserved ejection fraction 05/23/2023 Assessment & Plan (05/27/2023 12:55 PM CDT): Home meds: amlodipine, ASA, carvedilol, furosemide, hydralazine, spironolactone Last echo 09/08/22 - EF >70, Gr2 Diastolic dysfunction Hold all home meds while NPO. PRN IV Hydralazine and Labetalol available for HTN. 05/27: Hypotensive today; states this is typical for her after dialysis. She has no dizziness, lightheadedness, chest pain, n/v. Able to ambulate and transfer. Holding BP medication. Follow up with established providers and dialysis clinic outpatient upon discharge. Hold home BP medications upon discharge. Follow-up with PCP by phone on Monday, 05/29 for BP management. Keep log of blood pressures at least twice daily. She voices understanding and suggested that she would call her PCP right away Monday morning. Chronic pain 05/23/2023 Assessment & Plan (05/23/2023 9:51 AM CDT): Hold home flexeril and oxycodone while NPO. Start IV dilaudid 0.2mg q4h prn Discharge planning issues 05/23/2023 Assessment & Plan (05/27/2023 12:53 PM CDT): 05/22 Eval in ED for SBO, admit for nonop management. Nephro c/s for HD 05/23 NPO, NGT, ARBF, continue nonop management 05/24 Dialysis today, NG LIWS 05/26 CLD started and advanced to regular diet, OT rec home with assist, PT rec home with HH PT 05/27: Discharge home today with family and HH PT/OT. Altered behavior 09/08/2022 Altered mental status 09/08/2022 Multiple falls 09/08/2022 Encounter for preoperative assessment 02/11/2022 End stage renal disease 01/27/2022 Overview (01/27/2022): Added automatically from request for surgery [id number] Assessment & Plan (01/06/2025 10:11 AM CDT): End-stage renal disease on dialysis through a right forearm loop graft which is now thrombosed was dialyzed last week without any issues. She has consistently lost to follow-up. Presented to dialysis today with a loss of bruit and thrill. She presented to the [facility] dialysis access center to confirm suspicion of thrombosed graft. Co potassium is 4.1. She will be scheduled for thrombectomy tomorrow with Dr. Hawley. Discussed the procedure with the patient answered all questions at this time. Also rediscussed the necessity for routine follow-up visits. Assessment & Plan (05/27/2023 12:52 PM CDT): AVF LUE, HD MWF. Home meds: sevelamer - hold while NPO 05/22 Nephro consulted. HD in ED today, -1800. Continue MWF scheduled 05/24, 05/26 Dialysis 05/27: Dialysis yesterday. Electrolytes stable. Hypotensive today; states this is typical for her. She has no dizziness, lightheadedness, chest pain, n/v. Holding BP medication. Followup with established providers and dialysis clinic outpatient upon discharge. Assessment & Plan (12/27/2022 1:33 PM CDT): History of end-stage renal disease currently on dialysis via a left forearm loop AV graft. She was lost to follow-up. Last seen in January of 2022 status post thrombectomy and balloon angioplasty and stenting to her left basilic vein. Good bruit and thrill on exam. She denies any issues with dialysis. Av duplex today shows a patent graft. Re-educated patient on the need for consistent monitoring of the graft and serial duplexes. She is agreeable. Plan: Follow-up in 3 months with a routine left upper extremity duplex Assessment & Plan (03/04/2022 2:43 PM CDT): Impression: Patient has a left forearm AV loop graft that recently underwent thrombectomy, balloon angioplasty and stenting to left basilic vein. Patient has not yet started dialysis. She is currently being followed by Dr. Luong. Audible bruit and palpable thrill noted throughout AV graft. Plan: Sutures and ellen removed from incision sites. Patient to follow-up in 2 months for re-evaluation with new baseline AV scan in the [facility]. Patient instructed that if dialysis is needed to be started sooner than her 2 month follow-up, her AV graft may be utilized for dialysis. Patient voices understanding. Stage 5 chronic kidney disease not on chronic di alysis 01/20/2022 Assessment & Plan (01/20/2022 12:50 PM CDT): Impression: Patient underwent a a left forearm AV loop graft in anticipation of starting hemodialysis on 01/03/2022. Tignall and sutures are intact with no concern for infection. She denies neurovascular deficits to her left hand/arm. No audible bruit or palpable thrill noted on exam to her AV loop graft. She has not yet started dialysis. Plan: Recommend patient to obtain an AV fistula scan for concerns of occlusion to her AV loop graft. Patient instructed she will be notified of the results and most likely be scheduled for a thrombectomy with possible revision of her AV loop graft. Patient voices understanding. CKD (chronic kidney disease) stage 4, GFR 15-29 ml/min 11/15/2021 Overview (11/15/2021): Added automatically from request for surgery [id number] Cerebrovascular accident (CVA) 09/23/2021 Iron deficiency anemia 03/30/2021 Altered sensation due to old intracerebral hemor rhage 12/17/2020 Paresthesias 10/31/2020 Stroke-like symptoms 10/31/2020 Weakness 10/22/2020 Pyelonephritis 06/07/2020 AMINA (acute kidney injury) 04/28/2020 Assessment & Plan (04/29/2020 11:48 AM CDT): AMINA on CKD (baseline 1.8-1.9) - IVF - CTM 04/29: Cr downtrending, close to baseline. Discharge today, follow up with PCP CAD (coronary artery disease) 04/28/2020 Assessment & Plan (05/23/2023 9:49 AM CDT): See Diastolic HFpEF for management Assessment & Plan (04/28/2020 2:10 PM CDT): - ASA, atorva Edema of both lower extremit ies due to peripheral venous insufficiency 04/27/2020 History of cerebrovascular accident 04/27/2020 Leg cramps 04/27/2020 Obstructive sleep apnea syndrome 04/27/2020 Overactive bladder 04/27/2020 Diabetic nephropathy 02/26/2020 Secondary hyperparathyroidism 02/26/2020 Anemia in stage 3 chronic kidney disease 020 CRD (chronic renal disease), stage III 0 Assessment & Plan (08/30/2021 1:47 PM SAP MANAGER): Patient has chronic kidney disease not yet requiring hemodialysis. She is not an AV fistula candidate and would require non dominant left arm AV graft. The procedures indications and risks were thoroughly explained to the patient. Her questions were answered she understands and agrees to proceed. Will hold on this procedure until closer to hemodialysis in coordination with her life insurance agent. Benign hypertensive kidney d isease with chronic kidney disease stage I through stage IV, or unspecified(403.10) 10/07/2019 Partial small bowel obstruction 08/14/2019 Assessment & Plan (04/29/2020 11:46 AM CDT): - in setting of ventral hernia, chronic constipation - Transition point on CT 04/27, no nausea/vomiting, still passing - NPO, mIVF, refused NGT - UGI/SBFT 04/28 - Bowel regimen after SBFT 04/29: Prior to receiving SBFT, pt began having multiple bowel movements and abd pain and nausea resolved. Study cancelled, and PO challenge with regular diet. - - Patient tolerated regular diet, continues to have multiple BMS, no abdominal pain or nausea. Abd exam benign. Plan discharge today with miralax and senna with instructions to follow up with primary care provider. No need for further follow up with ACCS as pt is not currently a candidate for operative repair of her hernias. Assessment & Plan (08/16/2019 9:45 AM SAP MANAGER): Admitted with SBO confirmed by OSH CT abdomen/pelvis: Early or partial mid small bowel obstruction proximal to where the bowel exits the most leftward of four ventral hernias. NG placed to LIS for decompression. 08/14 small bowel follow through: contrast to colon 08/15 Having BM's, no nausea. NG output 350 ml. DC'd NG tube and started clear liquids. Abdominal tenderness improved. No further abdominal pain. 08/16 Advanced to a diabetic diet and tolerating food well. Continuing to have BM's. Abdominal pain resolved. She can follow up with her PCP, no General surgery follow up needed. Her BMI is 46.6. She was given our number to call with questions or concerns. UTI (urinary tract infection) 08/14/2019 Assessment & Plan (04/29/2020 11:44 AM CDT): - UA+ 04/27 - Cipro x 3 days, 1 x dose in ED->Hives->ceftriaxone - F/U cx 04/29: Susceptible to Macrobid, received 2 doses of CTX, discharge with Macrobid to complete treatment course Assessment & Plan (08/16/2019 9:46 AM SAP MANAGER): UA with nitrates and esterase. -IV Ceftriaxone started She received 3 doses of Ceftriaxone and is adequately treated. No further urinary symptoms. WBC down to 10 Type 2 diabetes mellitus 08/14/2019 Assessment & Plan (05/26/2023 8:07 AM CDT): Last A1C 5.4, diet controlled NPO, no mIVF as ESRD and aneuric. NGT output repleted as needed SSI and CC diet started 05/26 Assessment & Plan (04/28/2020 2:09 PM CDT): - Holding home glimeperide, metformin - SSI - A1C 7.2 Assessment & Plan (01/29/2020 10:27 AM CDT): She will continue to follow with her primary care physician and life insurance agent for the diabetes and CKD. I will obtain a copy of her last lab results. Of note, if her creatinine has remained elevated she should likely not remain on the metformin. Assessment & Plan (08/16/2019 9:46 AM SAP MANAGER): Holding home metformin and glyburide MDSSI started. HA1c 8.2 She will resume home regimen at discharge. Hyperlipemia 02/12/2019 Assessment & Plan (01/06/2025 10:04 AM CDT): Continue Lipitor Assessment & Plan (05/27/2023 12:49 PM CDT): Hold home atorvastatin while NPO 05/27: Resume upon discharge. Assessment & Plan (12/27/2022 1:31 PM CDT): Continue Lipitor Assessment & Plan (08/30/2021 1:45 PM SAP MANAGER): Hyperlipidemia chronic and controlled. Continue Lipitor Chronic edema 11/21/2018 Hemiparesis affecting right side as late effect of stroke 06/10/2018 Hypertension 06/10/2018 Assessment & Plan (01/06/2025 10:04 AM CDT): Continue amlodipine, hydralazine Assessment & Plan (05/23/2023 9:49 AM CDT): See Diastolic HFpEF for management Assessment & Plan (12/27/2022 1:30 PM CDT): Continue amlodipine, Coreg, and hydralazine. Assessment & Plan (08/30/2021 1:44 PM SAP MANAGER): Hypertension chronic and controlled. Continue Norvasc Assessment & Plan (04/29/2020 11:48 AM CDT): - Home regimen: Amlodipine 5mg every day, HCTZ 25mg every day, valsartan 160mg every day - Restarted Amlodipine - Hydralazine 10mg IV PRN for SBP >160 04/29: Restarted home antihypertensives at discharge Assessment & Plan (01/29/2020 10:27 AM CDT): Blood pressure is above her target this morning, however she reports that overall it is much better control. I am not going to make any changes in her medicines but have asked her to monitor and report. She has room for increase on both the valsartan and the amlodipine if needed. She was encouraged to maintain lifestyle modifications. Assessment & Plan (08/16/2019 9:47 AM SAP MANAGER): IV labetalol while NPO, holding home medications. 08/15 Home antihypertensives resumed except lasix and HCTZ due to creatinine. She will resume all home medications at discharge. Her creatinine is trending down and is 1.8 at discharge. Multiple nodules of lung 05/07/2018 Body mass index (BMI) 45.0-49.9, adult 8 Hypertensive heart disease without heart failure 05/03/2018 Pericardial effusion 05/03/2018 Arthropathy of spinal facet joint 06/21/2017 Constipation 06/21/2017 Hyperuricemia 06/21/2017 Morbid obesity 06/21/2017 Osteoarthrosis 06/21/2017 Nodular goiter 06/15/2017 GERD (gastroesophageal reflux disease) 6 Assessment & Plan (05/23/2023 9:52 AM CDT): Start IV PPI while NPO Open wound of anterior abdominal wall 12/24/2014 Infection following procedure 09/28/2014 Peritoneal abscess 09/28/2014 Abdominal pain 09/19/2014 Immunizations Immunization Administration Dates Next Due Hep B Vaccine 04/21/2023, 3,11/16/2022,10/14 Influenza, Quadrivalent, Rec ombinant, Egg Free, Preservative Free, Intramuscular 07/06/2020,08/08/2019 Influenza, Quadrivalent, Spl it, Preservative Free, Intramuscular 06/05/2018 Influenza, Unspecified 06/06/2022 Pneumococcal Polysaccharide PPV23 03/07/2022 Td, adsorbed 09/19/2014 Social History Tobacco Use Types Packs/Day Years Used Date Smoking Tobacco: Former Cigarettes 0.5 25 0 08/28/1989 - 08/28/2014 Smokeless Tobacco: Never Tobacco Cessation:Counseling Given: Not Answered Alcohol Use Standard Drinks/Week Comments No 0 (1 standard drink = 0.6 oz pur e alcohol) OASIS D0700: Social Isolation Answer Da te Recorded Frequency of experiencing loneliness or isolatio n Never 09/27/2023 OASIS A1250: Transportation Answer Date Recorded Lack of Transportation (Medical) No 09/27/2023 Lack of Transportation (Non-Medical) No 09/27/2023 Patient Unable or Declines to Respond No 09/27/2023 OASIS B1300: Health Literacy Answer Ole e Recorded Frequency of needing help to read materials from doctor or pharmacy Never 09/27/2023 [facility] Utilities Answer Date Recorded In the past 12 months has e [employer], gas, oil, or water [email or web address] threatened to shut off services in your home? Patient unable to answer 01/23/2025 Social Connection and Isolation Panel [NHANES] A nswer Date Recorded In a typical week, how many times do you talk on the phone with family, friends, or neighbors? Patient unable to answer 01/23/2025 How often do you get togethe r with friends or relatives? Patient unable to answer 01/23/2025 How often do you attend chur ch or bahai services? Patient unable to answer 01/23/2025 Do you belong to any clubs o r organizations such as adventism groups, unions, fraternal or athletic groups, or school groups? Patient unable to answer 01/23/2025 How often do you attend meet ings of the clubs or organizations you belong to? Patient unable to answer 01/23/2025 Are you , , di vorced, , never , or living with a partner? Patient unable to answer 01/23/2025 AUDIT-C Answer Date Recorded Q1: How often do you have a drink containing alcohol? Never 01/07/2025 Q2: How many drinks containi ng alcohol do you have on a typical day when you are drinking? Patient does not drink Q3: How often do you have si x or more drinks on one occasion? Never 01/07/2025 Overall Financial Resource Strain (CARDIA) Answe r Date Recorded How hard is it for you to pa y for the very basics like food, housing, medical care, and heating? Patient unable to answer 01/23/2025 PHQ-2 Answer Date Recorded PHQ-2 Total Score (If total score is 3 or more points, staff should administer the PHQ-9) 0 04/21/2023 Hunger Vital Sign Answer Date Recorded Within the past 12 months, y ou worried that your food would run out before you got the money to buy more. Patient unable to answer 01/23/2025 Within the past 12 months, t he food you bought just didn't last and you didn't have money to get more. Patient unable to answer 01/23/2025 PRAPARE - Transportation Answer Date Re corded In the past 12 months, has l ack of transportation kept you from medical appointments or from getting medications? Patient unable to answer 01/23/2025 In the past 12 months, has l ack of transportation kept you from meetings, work, or from getting things needed for daily living? Patient unable to answer 01/23/2025 Housing Stability Vital Sign Answer Ole e Recorded In the last 12 months, was t here a time when you were not able to pay the mortgage or rent on time? No 04/21/2023 In the last 12 months, how many places have you lived? 1 04/21/2023 In the last 12 months, was t here a time when you did not have a steady place to sleep or slept in a assisted (including now)? No 04/21/2023 Housing Stability Vital Sign Answer Ole e Recorded In the last 12 months, was t here a time when you were not able to pay the mortgage or rent on time? Patient unable to answer 01/23/2025 Number of Times Moved in the Last Year Not on fi le 01/23/2025 At any time in the past 12 m [facility], were you homeless or living in a assisted (including now)? Patient unable to answer 01/23/2025 Personal Safety Answer Date Recorded Have you ever been in or are you currently in a harmful physical or emotional relationship or is someone making you feel afraid or unsafe? 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 Gender Identity Not on file Sexual Orientation Not on file Last Filed Vital Signs Vital Sign Reading Time Taken Comments Blood Pressure 171/73 01/30/2025 2:27 PM CDT Pulse 93 01/30/2025 2:27 PM CDT Temperature 36.2 C (97.2 F) 01/24/2025 3:35 PM CDT Respiratory Rate 20 01/24/2025 3:35 PM CDT Oxygen Saturation 100% 01/24/2025 3:35 PM CDT Inhaled Oxygen Concentration - - Weight 101.6 kg (224 lb) 01/30/2025 2:27 PM CDT Height 157.5 cm (5' 2) 01/30/2025 2:27 PM CDT Body Mass Index 40.97 01/30/2025 2:27 PM CDT Results * US Hemodialysis Access (01/30/2025 2:36 PM CDT) Anatomical Region Laterality Modality Vascular N/A Ultrasound 01/30/2025 1:52 PM CDT Narrative 01/31/2025 1:40 PM CDT Hemodialysis Access Duplex Report Patient Name: EMILY MAYNARD R : 1960 (64y 3m) Gender: F Study Date: 01/30/2025 01:52:24 PM Stamp Classifier: Allyson Kolb Provider: REYES HAWLEY Ref Provider: REYES HAWLEY PROCEDURES: Vascular Report: Color Duplex ultrasound with velocity measurements was performed of the left upper extremity access graft. Arterial Report: A non-invasive vascular imaging study of the left upper extremity arteries and stent was performed using B-mode ultrasound, color flow, and spectral Doppler. INDICATIONS: Dialysis graft complication. HISTORY: S/P THROMB LT FOREARM LOOP AVG, BA/STENT LT BAS V 01/07/25 S/P THROMB LT FOREARM LOOP AVG, BA/STENT LT AVG & BAS V 02/14/22 S/P LT BRACH A - BAS V FOREARM LOOP AVG 01/03/22. COMPARISONS: The previous exam was completed on 01/06/25. Compared to prior the loop AVG is patent. ACCESS GRAFT: Vessel Velocity Lt Location BRACH A - BAS V LOOP AVG Lt [place] Artery 223.00 cm/sec Lt Arterial Anast 732/416 cm/sec Lt Prx Graft 200.00 ART LOOP cm/sec Lt Prx-Mid Graft 620/416 ART LOOP cm/sec Lt Mid-Dist Graft 111/55 ALMA LOOP cm/sec Lt Dst Graft 197/112 ALMA LOOP cm/sec Lt [place] Vein 93 AX V cm/sec LEFT STENT MEASUREMENTS: Vessel Velocity Location DIST AVG INTO BAS V Lt Stent Prx [place] PSV 149/77 cm/sec Lt Stent Prx Attachment PSV 128/71 cm/sec Lt Stent Prx PSV 123/76 cm/sec Lt Stent Mid PSV 134/74 cm/sec Lt Stent Dst PSV 147/88 cm/sec Lt Stent Dst Attachment PSV 141/85 cm/sec Lt Stent Dst [place] PSV 134/76 BAS V cm/sec Location 2 BAS V Lt Stent 2 Prx PSV 158/84 cm/sec Lt Stent 2 Mid PSV 145/83 cm/sec Lt Stent 2 Dst PSV 123/69 cm/sec Lt Stent 2 Dst [place] PSV 65 BRACH V cm/sec FINDINGS: Study Quality: The study quality is adequate. Left: Brach A VF 1029mL/min Art loop VF 1961mL/min [place] loop VF 1336mL/min. Graft: AV graft is located in the left forearm. Patent AV graft. Increased velocity at the mid portion of the graft on the arterial side. Stent 1: The stent is located in the dist AVG into basilic vein. Patent upper extremity stent with no evidence of stenosis. Stent 2: The stent is located in the mid basilic vein. Patent upper extremity stent with no evidence of stenosis. CONCLUSIONS: 1. Patent left brachial artery to basilic vein forearm loop graft, stents in the graft and venous outflow were patent. Electronically Signed By: Osito Hawley MD 01/31/2025 12:25:33 PM CDT Procedure Note Osito Hawley MD - 01/31/2025 Hemodialysis Access Duplex Report Patient Name: EMILY MAYNARD R : 1960 (64y 3m) Gender: F Study Date: 01/30/2025 01:52:24 PM Stamp Classifier: Allyson Kolb Provider: REYES HAWLEY Ref Provider: REYES HAWLEY PROCEDURES: Vascular Report: Color Duplex ultrasound with velocity measurements wasperformed of the left upper extremity access graft. Arterial Report: A non-invasive vascular imaging study of the left upperextremity arteries and stent was performed using B-mode ultrasound, color flow, andspectral Doppler. INDICATIONS: Dialysis graft complication. HISTORY: S/P THROMB LT FOREARM LOOP AVG, BA/STENT LT BAS V 01/07/25 S/P THROMB LT FOREARM LOOP AVG, BA/STENT LT AVG & BAS V 02/14/22 S/P LT BRACH A - BAS V FOREARM LOOP AVG 01/03/22. COMPARISONS: The previous exam was completed on 01/06/25. Compared to prior the loopAVG is patent. ACCESS GRAFT: Vessel Velocity Lt Location BRACH A - BAS V LOOP AVG Lt [place] Artery 223.00 cm/sec Lt Arterial Anast 732/416 cm/sec Lt Prx Graft 200.00 ART LOOP cm/sec Lt Prx-Mid Graft 620/416 ART LOOP cm/sec Lt Mid-Dist Graft 111/55 ALMA LOOP cm/sec Lt Dst Graft 197/112 ALMA LOOP cm/sec Lt [place] Vein 93 AX V cm/sec LEFT STENT MEASUREMENTS: Vessel Velocity Location DIST AVG INTO BAS V Lt Stent Prx [place] PSV 149/77 cm/sec Lt Stent Prx Attachment PSV 128/71 cm/sec Lt Stent Prx PSV 123/76 cm/sec Lt Stent Mid PSV 134/74 cm/sec Lt Stent Dst PSV 147/88 cm/sec Lt Stent Dst Attachment PSV 141/85 cm/sec Lt Stent Dst [place] PSV 134/76 BAS V cm/sec Location 2 BAS V Lt Stent 2 Prx PSV 158/84 cm/sec Lt Stent 2 Mid PSV 145/83 cm/sec Lt Stent 2 Dst PSV 123/69 cm/sec Lt Stent 2 Dst [place] PSV 65 BRACH V cm/sec FINDINGS: Study Quality: The study quality is adequate. Left: Brach A VF 1029mL/min Art loop VF 1961mL/min [place]ma loop VF 1336mL/min. Graft: AV graft is located in the left forearm. Patent AV graft. Increasedvelocity at the mid portion of the graft on the arterial side. Stent 1: The stent is located in the dist AVG into basilic vein. Patentupper extremity stent with no evidence of stenosis. Stent 2: The stent is located in the mid basilic vein. Patent upperextremity stent with no evidence of stenosis. CONCLUSIONS: 1. Patent left brachial artery to basilic vein forearm loop graft, stentsin the graft and venous outflow were patent. Electronically Signed By: Osito Hawley MD 01/31/2025 12:25:33 PM CDT us Reyes Hawley MD IM US PROCEDURES Final Re sult * (ABNORMAL) eGFR (01/24/2025 8:38 AM CDT) [facility] eGFR 4(L) >=60 mL/min/1. 73 m2 Comment: Interpretive Data Reference Interval Normal >/= 90 mL/min/1.73m2 Mildly decreased* 60 - 89 mL/min/1.73m2 Mildly to moderately decreased 45 - 59 mL/min/1.73m2 Moderately to severely decreased 30 - 44 mL/min/1.73m2 Severely decreased 15 - 29 mL/min/1.73m2 Kidney Failure < 15 mL/min/1.73m2 *Relative to young adult level Estimated glomerular filtration rate is determined by the 2020 CKD-EPI equation recommended by the National Kidney Foundation (A Unifying Approach to GFR Estimation: Recommendations of the NKF-ASK Task Force on Reassessing the Inclusion of Race in Diagnosing Kidney Disease, JASN 2020). The CKD-EPI equation should not be used for patients with unstable renal function and has not been validated in children and those over 70. Current interpretive data was last reviewed 2021. Blood 01/24/2025 8:38 AM CDT 01/24/2025 8:54 AM CDT us Steve Wilson DO LAB BLOOD ORDERABLES F inal Result [facility] [address] Department [place] [address] * (ABNORMAL) Differential, auto (01/24/2025 8:38 AM CDT) Pathologist [facility] Neutrophil abs 3.44 1.50 - 6.50 K/cumm Imm gran abs 0.07 0.00 - 0.10 K/cumm [facility] Lymphocyte abs 2.18 0.80 - 3.30 K/cumm [facility] Monocyte abs 1.08(H) 0.20 - 0.80 K/cumm [facility] Eosinophil abs 0.18 0.00 - 0.50 K/cumm [facility] Basophil abs 0.08 0.00 - 0.10 K/cumm [facility] Neutrophil pct 48.9 % [facility] Comment: Interpretive Data Percent cell count reference ranges are not reported, since discordance with absolute values may lead to misinterpretation of CBC data. Current Interpretive Data was last revised on 2017. Imm gran pct 1.0 % [facility] Comment: Interpretive Data Percent cell count reference ranges are not reported, since discordance with absolute values may lead to misinterpretation of CBC data. Current Interpretive Data was last revised on 2017. Lymphocyte pct 31.0 % [facility] Comment: Interpretive Data Percent cell count reference ranges are not reported, since discordance with absolute values may lead to misinterpretation of CBC data. Current Interpretive Data was last revised on 2017. Monocyte pct 15.4 % [facility] Comment: Interpretive Data Percent cell count reference ranges are not reported, since discordance with absolute values may lead to misinterpretation of CBC data. Current Interpretive Data was last revised on 2017. Eosinophil pct 2.6 % [facility] Comment: Interpretive Data Percent cell count reference ranges are not reported, since discordance with absolute values may lead to misinterpretation of CBC data. Current Interpretive Data was last revised on 2017. Basophil pct 1.1 % [facility] Comment: Interpretive Data Percent cell count reference ranges are not reported, since discordance with absolute values may lead to misinterpretation of CBC data. Current Interpretive Data was last revised on 2017. Blood 01/24/2025 8:38 AM CDT 01/24/2025 8:54 AM CDT us Rafiq Solis MD LAB BLOOD ORDERABLES Final Result [facility] [address] Department [place] [address] * (ABNORMAL) CBC with auto differential (01/24/2025 8:38 AM CDT) WBC 7.03 3.80 - 9.90 K/cumm Hgb 9.6(L) 11.9 - 15.5 g/dL [facility] Hct 31.4(L) 35.6 - 45.5 % [facility] Plt 342 150 - 400 K/cumm [facility] MPV 10.3 9.1 - 12.3 fL [facility] RBC 3.57(L) 3.90 - 5.20 M/cumm [facility] MCV 88.0 81.3 - 96.4 fL [facility] MCH 26.9(L) 27.1 - 33.3 pg [facility] MCHC 30.6(L) 32.3 - 35.7 g/dL [facility] RDW CV 17.3(H) 11.1 - 14.9 % [facility] RDW SD 54.7(H) 35.7 - 48.1 fL [facility] NRBC abs 0.00 0.00 - 0.01 K/cumm [facility] Blood 01/24/2025 8:38 AM CDT 01/24/2025 8:54 AM CDT us Rafiq Solis MD LAB BLOOD ORDERABLES Final Result [facility] [address] Department [place] [address] * (ABNORMAL) Renal function panel (01/24/2025 8:38 AM CDT) Sodium 136 135 - 145 mmol/L Potassium, pl 4.3 3.3 - 4.9 mmol/L [facility] Chloride 96(L) 97 - 110 mmol/L [facility] CO2 25 22 - 32 mmol/L [facility] Anion gap 15 2 - 15 mmol/L [facility] BUN 26(H) 6 - 25 mg/dL [facility] Creatinine 10.30(H) 0.60 - 1.10 mg/dL [facility] Glucose 104 70 - 199 mg/dL [facility] Comment: Interpretive Data Fasting glucose >/= 126 mg/dl is diagnostic for diabetes. Fasting is defined as no caloric intake for at least 8 hours. Fasting glucose between 100 mg/dl to 125 mg/dl is diagnostic of prediabetes. In a patient with classic symptoms of hyperglycemia or hyperglycemic crisis, a random glucose >/= 200 mg/dl is diagnostic for diabetes. In the absence of unequivocal hyperglycemia, results should be confirmed by repeat testing. The classification and Diagnosis of Diabetes Diabetes Care 2021; 46: S19-S40. Current interpretive data was last revised 2022. Calcium 10.4(H) 8.5 - 10.3 mg/dL [facility] Phosphorus, pl 7.1(H) 2.3 - 4.5 mg/dL [facility] Albumin 3.6 3.5 - 5.0 g/dL [facility] Blood 01/24/2025 8:38 AM CDT 01/24/2025 8:54 AM CDT Steve Wilson DO LAB BLOOD ORDERABLES F inal Result Performing Organization Address [facility] Co de Phone Number [address] [place] [address] * POCT glucose (01/24/2025 8:16 AM CDT) Glucose, POC 111 70 - 199 mg/dL Glucose comment 1 RN/MD Notified [facility] Blood 01/24/2025 8:16 AM CDT 01/24/2025 8:16 AM CDT Denver Cochran MD LAB POCT ORDERABLES - ANNIE CE Final Result Performing Organization Address [facility] de Phone Number [address] [place] [address] * POCT glucose (01/23/2025 7:58 PM CDT) Glucose, POC 104 70 - 199 mg/dL Glucose comment 1 RN/MD Notified [facility] Blood 01/23/2025 7:58 PM CDT 01/23/2025 7:58 PM CDT Denver Cochran MD LAB POCT ORDERABLES - ANNIE CE Final Result Performing Organization Address [facility] de Phone Number [address] [place] [address] * CT Abdomen Pelvis WO Contrast (01/23/2025 12:23 PM CDT) Anatomical Region Laterality Modality Body N/A Computed Tomogra phy 01/23/2025 2:51 PM CDT Narrative 01/23/2025 3:09 PM CDT EXAM DESCRIPTION: CT ABDOMEN PELVIS WO CONTRAST REASON FOR STUDY: Ventral hernia. Nausea with abdominal pain. Concern for obstruction. TECHNIQUE: CT scan of the abdomen and pelvis performed without intravenous and without oral contrast using helical scanning technique. Reconstructed coronal and sagittal MPR images reviewed. All images stored on PACS. Automated exposure control was used as a dose optimization technique for this examination. COMPARISON: CT chest, abdomen, pelvis 10/07/2024 , 04/27/2020 FINDINGS: The sensitivity for detection of visceral lesions is diminished without the use of intravenous contrast. LOWER CHEST: Moderate coronary artery calcification. LIVER: No focal liver lesion. GALLBLADDER: Small calcified gallstones. No pericholecystic inflammatory change. BILE DUCTS: No intrahepatic or extrahepatic ductal dilatation. SPLEEN: Normal size. No focal lesions. PANCREAS: No masses. No adjacent inflammation or peripancreatic fluid collections. No pancreatic ductal dilatation. ADRENALS: Normal. KIDNEYS/URINARY TRACT: Cyst in the interpolar right kidney requires no specific follow-up. No hydronephrosis. Cyst in the left kidney requires no specific follow-up. Urinary bladder is unremarkable. GI: No dilated bowel loops. No obvious wall thickening. Normal appendix. No significant diverticular disease. PERITONEUM: No ascites or free air. RETROPERITONEUM: No mass or lymphadenopathy. REPRODUCTIVE: No significant abnormality. VASCULATURE: Atherosclerotic calcification of the abdominal aorta without aneurysm. MUSCULOSKELETAL: Sclerotic lesion in the left iliac bone is unchanged from 2020 and likely a bone island. Moderate thoracolumbar spondylosis. OTHER: In the anterior abdominal wall, there is a low-attenuation collection measuring 5.7 x 4.8 cm (image 106), previously measuring 5.7 x 4.7 cm. There are small fat containing anterior abdominal wall hernias measuring 1.3 cm (image 96) and 2.9 cm (image 78). The neck of the more superior hernia measures 1 cm. IMPRESSION: No evidence of bowel obstruction. Low-attenuation fluid collection in the anterior abdominal wall is grossly similar in size when compared to the prior study and may represent a seroma. An abscess is not entirely excluded. Small fat containing anterior abdominal wall hernias are otherwise unchanged. Cholelithiasis. No pericholecystic inflammatory change. THIS IS AN ELECTRONICALLY VERIFIED FINAL REPORT 01/23/2025 3:09 PM - Electronically signed by Hung Candelario M.D. LB T: Report ID: [id number] Reading Location: [id number] Procedure Note Hung Candelario MD - 01/23/2025 EXAM DESCRIPTION: CT ABDOMEN PELVIS WO CONTRAST REASON FOR STUDY: Ventral hernia. Nausea with abdominal pain. Concernfor obstruction. TECHNIQUE: CT scan of the abdomen and pelvis performed without intravenousand without oral contrast using helical scanning technique. Reconstructed coronal and sagittal MPR images reviewed. All images stored on PACS.Automated exposure control was used as a dose optimization technique for this examination. COMPARISON: CT chest, abdomen, pelvis 10/07/2024 , 04/27/2020 FINDINGS: The sensitivity for detection of visceral lesions is diminished withoutthe use of intravenous contrast. LOWER CHEST: Moderate coronary artery calcification. LIVER: No focal liver lesion. GALLBLADDER: Small calcified gallstones. No pericholecysticinflammatory change. BILE DUCTS: No intrahepatic or extrahepatic ductal dilatation. SPLEEN: Normal size. No focal lesions. PANCREAS: No masses. No adjacent inflammation or peripancreatic fluid collections. No pancreatic ductal dilatation. ADRENALS: Normal. KIDNEYS/URINARY TRACT: Cyst in the interpolar right kidney requires no specific follow-up. No hydronephrosis. Cyst in the left kidney requiresno specific follow-up. Urinary bladder is unremarkable. GI: No dilated bowel loops. No obvious wall thickening. Normalappendix. No significant diverticular disease. PERITONEUM: No ascites or free air. RETROPERITONEUM: No mass or lymphadenopathy. REPRODUCTIVE: No significant abnormality. VASCULATURE: Atherosclerotic calcification of the abdominal aortawithout aneurysm. MUSCULOSKELETAL: Sclerotic lesion in the left iliac bone is unchangedfr2019 and likely a bone island. Moderate thoracolumbar spondylosis. OTHER: In the anterior abdominal wall, there is a low-attenuationcollection measuring 5.7 x 4.8 cm (image 106), previously measuring 5.7 x 4.7 cm.There are small fat containing anterior abdominal wall hernias measuring 1.3 cm (image 96) and 2.9 cm (image 78). The neck of the more superior hernia measures 1 cm. IMPRESSION: No evidence of bowel obstruction. Low-attenuation fluid collection in the anterior abdominal wall isgrossly similar in size when compared to the prior study and may represent aseroma. An abscess is not entirely excluded. Small fat containing anterior abdominal wall hernias are otherwiseunchanged. Cholelithiasis. No pericholecystic inflammatory change. THIS IS AN ELECTRONICALLY VERIFIED FINAL REPORT 01/23/2025 3:09 PM - Electronically signed by Hung Candelario M.D. LB T: Report ID: [id number] Reading Location: [place] [address] us Denver Cochran MD IMG CT PROCEDURES Final Re sult * (ABNORMAL) eGFR (01/23/2025 7:09 AM CDT) eGFR 5(L) >=60 mL/min/1. 73 m2 Comment: Interpretive Data Reference Interval Normal >/= 90 mL/min/1.73m2 Mildly decreased* 60 - 89 mL/min/1.73m2 Mildly to moderately decreased 45 - 59 mL/min/1.73m2 Moderately to severely decreased 30 - 44 mL/min/1.73m2 Severely decreased 15 - 29 mL/min/1.73m2 Kidney Failure < 15 mL/min/1.73m2 *Relative to young adult level Estimated glomerular filtration rate is determined by the 2020 CKD-EPI equation recommended by the National Kidney Foundation (A Unifying Approach to GFR Estimation: Recommendations of the NKF-ASK Task Force on Reassessing the Inclusion of Race in Diagnosing Kidney Disease, JASN 2020). The CKD-EPI equation should not be used for patients with unstable renal function and has not been validated in children and those over 70. Current interpretive data was last reviewed 2021. Blood 01/23/2025 7:09 AM CDT 01/23/2025 7:48 AM CDT us Steve Wilson DO LAB BLOOD ORDERABLES F inal Result [id number] [place] [address] * (ABNORMAL) Renal function panel (01/23/2025 7:09 AM CDT) Sodium 138 135 - 145 mmol/L Potassium, pl 4.0 3.3 - 4.9 mmol/L [facility] Chloride 98 97 - 110 mmol/L [facility] CO2 27 22 - 32 mmol/L [facility] Anion gap 13 2 - 15 mmol/L [facility] BUN 20 6 - 25 mg/dL [facility] Creatinine 8.34(H) 0.60 - 1.10 mg/dL [facility] Glucose 97 70 - 199 mg/dL [facility] Comment: Interpretive Data Fasting glucose >/= 126 mg/dl is diagnostic for diabetes. Fasting is defined as no caloric intake for at least 8 hours. Fasting glucose between 100 mg/dl to 125 mg/dl is diagnostic of prediabetes. In a patient with classic symptoms of hyperglycemia or hyperglycemic crisis, a random glucose >/= 200 mg/dl is diagnostic for diabetes. In the absence of unequivocal hyperglycemia, results should be confirmed by repeat testing. The classification and Diagnosis of Diabetes Diabetes Care 2021; 46: S19-S40. Current interpretive data was last revised 2022. Calcium 10.0 8.5 - 10.3 mg/dL [facility] Phosphorus, pl 6.1(H) 2.3 - 4.5 mg/dL [facility] Albumin 3.3(L) 3.5 - 5.0 g/dL [facility] Blood 01/23/2025 7:09 AM CDT 01/23/2025 7:48 AM CDT Steve Wilson DO LAB BLOOD ORDERABLES F inal Result [facility] [address] Department [place] [address] * POCT glucose (01/23/2025 5:36 AM CDT) Glucose, POC 90 70 - 199 mg/dL Glucose comment 1 RN/MD Notified [facility] Blood 01/23/2025 5:36 AM CDT 01/23/2025 5:36 AM CDT us Denver Cochran MD LAB POCT ORDERABLES - ANNIE CE Final Result Performing Organization Address [facility] de Phone Number [facility] [place] [address] * POCT glucose (01/22/2025 7:57 PM CDT) Glucose, POC 125 70 - 199 mg/dL Glucose comment 1 RN/MD Notified [facility] Blood 01/22/2025 7:57 PM CDT 01/22/2025 7:57 PM CDT us Denver Cochran MD LAB POCT ORDERABLES - ANNIE CE Final Result Performing Organization Address [facility] de Phone Number [address] [place] [address] * POCT glucose (01/22/2025 4:08 PM CDT) Glucose, POC 111 70 - 199 mg/dL Glucose comment 1 RN/MD Notified [facility] Blood 01/22/2025 4:08 PM CDT 01/22/2025 4:08 PM CDT us Denver Cochran MD LAB POCT ORDERABLES - ANNIE CE Final Result Performing Organization Address [facility] de Phone Number [address] [place] [address] * POCT glucose (01/22/2025 12:09 PM CDT) Glucose, POC 91 70 - 199 mg/dL Glucose comment 1 RN/MD Notified [facility] Blood 01/22/2025 12:0 9 PM CDT 01/22/2025 12:09 PM CDT us Denver Cochran MD LAB POCT ORDERABLES - ANNIE CE Final Result Performing Organization Address City/[facility] Co de Phone Number SERGIO [address] [place] [address] * POCT glucose (01/22/2025 7:28 AM CDT) Glucose, POC 154 70 - 199 mg/dL Glucose comment 1 RN/MD Notified SER[facility] Blood 01/22/2025 7:28 AM CDT 01/22/2025 7:28 AM CDT us Denver Cochran MD LAB POCT ORDERABLES - ANNIE CE Final Result Performing Organization Address [facility] de Phone Number [address] [address] * (ABNORMAL) eGFR (01/22/2025 6:12 AM CDT) [facility] eGFR 4(L) >=60 mL/min/1. 73 m2 Comment: Interpretive Data Reference Interval Normal >/= 90 mL/min/1.73m2 Mildly decreased* 60 - 89 mL/min/1.73m2 Mildly to moderately decreased 45 - 59 mL/min/1.73m2 Moderately to severely decreased 30 - 44 mL/min/1.73m2 Severely decreased 15 - 29 mL/min/1.73m2 Kidney Failure < 15 mL/min/1.73m2 *Relative to young adult level Estimated glomerular filtration rate is determined by the 2020 CKD-EPI equation recommended by the National Kidney Foundation (A Unifying Approach to GFR Estimation: Recommendations of the NKF-ASK Task Force on Reassessing the Inclusion of Race in Diagnosing Kidney Disease, JASN 2020). The CKD-EPI equation should not be used for patients with unstable renal function and has not been validated in children and those over 70. Current interpretive data was last reviewed 2021. Blood 01/22/2025 6:12 AM CDT 01/22/2025 7:06 AM CDT us Steve Wilson DO LAB BLOOD ORDERABLES F inal Result [facility]GIO [address] [facility] Department [place] [address] * (ABNORMAL) Differential, auto (01/22/2025 6:12 AM CDT) Neutrophil abs 3.84 1.50 - 6.50 K/cumm Imm gran abs 0.10 0.00 - 0.10 K/cumm [facility] Lymphocyte abs 2.46 0.80 - 3.30 K/cumm [facility] Monocyte abs 1.55(H) 0.20 - 0.80 K/cumm [facility] Eosinophil abs 0.26 0.00 - 0.50 K/cumm [facility] Basophil abs 0.09 0.00 - 0.10 K/cumm [facility] Neutrophil pct 46.3 % [facility] Comment: Interpretive Data Percent cell count reference ranges are not reported, since discordance with absolute values may lead to misinterpretation of CBC data. Current Interpretive Data was last revised on 2017. Imm gran pct 1.2 % [facility] Comment: Interpretive Data Percent cell count reference ranges are not reported, since discordance with absolute values may lead to misinterpretation of CBC data. Current Interpretive Data was last revised on 2017. Lymphocyte pct 29.6 % [facility] Comment: Interpretive Data Percent cell count reference ranges are not reported, since discordance with absolute values may lead to misinterpretation of CBC data. Current Interpretive Data was last revised on 2017. Monocyte pct 18.7 % [facility] Comment: Interpretive Data Percent cell count reference ranges are not reported, since discordance with absolute values may lead to misinterpretation of CBC data. Current Interpretive Data was last revised on 2017. Eosinophil pct 3.1 % [facility] Comment: Interpretive Data Percent cell count reference ranges are not reported, since discordance with absolute values may lead to misinterpretation of CBC data. Current Interpretive Data was last revised on 2017. Basophil pct 1.1 % [facility] Comment: Interpretive Data Percent cell count reference ranges are not reported, since discordance with absolute values may lead to misinterpretation of CBC data. Current Interpretive Data was last revised on 2017. Blood 01/22/2025 6:12 AM CDT 01/22/2025 7:06 AM CDT Rafiq Solis MD LAB BLOOD ORDERABLES Final Result Performing Organization Address [facility] Co de Phone Number SERGIO [address] [place] [address] * (ABNORMAL) CBC with auto differential (01/22/2025 6:12 AM CDT) Pathologist [facility] WBC 8.30 3.80 - 9.90 K/cumm Hgb 9.2(L) 11.9 - 15.5 g/dL [facility] Hct 29.9(L) 35.6 - 45.5 % [facility] Plt 336 150 - 400 K/cumm [facility] MPV 10.2 9.1 - 12.3 fL [facility] RBC 3.41(L) 3.90 - 5.20 M/cumm [facility] MCV 87.7 81.3 - 96.4 fL [facility] MCH 27.0(L) 27.1 - 33.3 pg [facility] MCHC 30.8(L) 32.3 - 35.7 g/dL [facility] RDW CV 16.8(H) 11.1 - 14.9 % [facility] RDW SD 54.3(H) 35.7 - 48.1 fL [facility] NRBC abs 0.02(H) 0.00 - 0.01 K/cumm [facility] Blood 01/22/2025 6:12 AM CDT 01/22/2025 7:06 AM CDT Rafiq Solis MD LAB BLOOD ORDERABLES Final Result Performing Organization Address City/[facility]/ZIP Co de Phone Number SERGIO [address] [place] [address] * (ABNORMAL) Renal function panel (01/22/2025 6:12 AM CDT) Pathologist [facility] Sodium 139 135 - 145 mmol/L Potassium, pl 4.3 3.3 - 4.9 mmol/L [facility] Chloride 98 97 - 110 mmol/L [facility] CO2 27 22 - 32 mmol/L [facility] Anion gap 14 2 - 15 mmol/L [facility] BUN 24 6 - 25 mg/dL [facility] Creatinine 9.45(H) 0.60 - 1.10 mg/dL [facility] Glucose 89 70 - 199 mg/dL [facility] Comment: Interpretive Data Fasting glucose >/= 126 mg/dl is diagnostic for diabetes. Fasting is defined as no caloric intake for at least 8 hours. Fasting glucose between 100 mg/dl to 125 mg/dl is diagnostic of prediabetes. In a patient with classic symptoms of hyperglycemia or hyperglycemic crisis, a random glucose >/= 200 mg/dl is diagnostic for diabetes. In the absence of unequivocal hyperglycemia, results should be confirmed by repeat testing. The classification and Diagnosis of Diabetes Diabetes Care 202; 46: S19-S40. Current interpretive data was last revised 2022. Calcium 10.1 8.5 - 10.3 mg/dL [facility] Phosphorus, pl 6.4(H) 2.3 - 4.5 mg/dL [facility] Albumin 3.5 3.5 - 5.0 g/dL [facility] Blood 01/22/2025 6:12 AM CDT 01/22/2025 7:06 AM CDT Steve Wilson DO LAB BLOOD ORDERABLES F inal Result Performing Organization Address City/[facility]/ZIP Co de Phone Number [address] [place] [address] * POCT glucose (01/22/2025 5:44 AM CDT) [facility] Glucose, POC 88 70 - 199 mg/dL Blood 01/22/2025 5:44 AM CDT 01/22/2025 5:44 AM CDT Denver Cochran MD LAB POCT ORDERABLES - ANNIE CE Final Result Performing Organization Address [facility] Co de Phone Number [address] [place] [address] * Hepatitis B surface antibody (immune status) Blood (01/21/2025 11:36 PM CDT) HBsAb (immune status) Nonreactive Comment: Interpretive Data Nonreactive: This result is consistent with a lack of immunity to Hepatitis B Virus when used in the setting of routine screening. Equivocal: The immune status of the individual should be further assessed, if appropriate, after consideration of clinical status, risk factors, and additional diagnostic information. Reactive: This result is consistent with immunity to Hepatitis B Virus when used in the setting of routine screening. Current interpretive data was last revised on 19. Blood 01/21/2025 11:3 6 PM CDT 01/21/2025 11:40 PM CDT Rafiq Solis MD LAB MICROBIOLOGY - GENERAL ORDERABLES Final Result Performing Organization Address [facility] de Phone Number [address] [place] [address] * Hepatitis B Surface Antigen Blood (01/21/2025 11:36 PM CDT) Pathologist [facility] HepBsAg Nonreactive Nonreactive Blood 01/21/2025 11:3 6 PM CDT 01/21/2025 11:40 PM CDT Rafiq Solis MD LAB MICROBIOLOGY - GENERAL ORDERABLES Final Result Performing Organization Address [facility] de Phone Number [address] [place] [address] * POCT glucose (01/21/2025 8:24 PM CDT) Pathologist [facility] Glucose, POC 150 70 - 199 mg/dL Blood 01/21/2025 8:24 PM CDT 01/21/2025 8:24 PM CDT Denver Cochran MD LAB POCT ORDERABLES - ANNIE CE Final Result Performing Organization Address [facility]/ZIP Co de Phone Number ELY[address] [place] [address] * POCT glucose (01/21/2025 4:44 PM CDT) Glucose, POC 158 70 - 199 mg/dL Glucose comment 1 RN/ Notified SERG[facility] Blood 01/21/2025 4:44 PM CDT 01/21/2025 4:44 PM CDT Denver Cochran MD LAB POCT ORDERABLES - ANNIE CE Final Result Performing Organization Address [facility] de Phone Number [address] [address] * POCT glucose (01/21/2025 11:39 AM CDT) Glucose, POC 122 70 - 199 mg/dL Glucose comment 1 RN/ Notified [facility] Blood 01/21/2025 11:3 9 AM CDT 01/21/2025 11:39 AM CDT us Denver Cochran MD LAB POCT ORDERABLES - ANNIE CE Final Result Performing Organization Address [facility] de Phone Number [address] [place] [address] * POCT glucose (01/21/2025 7:40 AM CDT) Glucose, POC 80 70 - 199 mg/dL Glucose comment 1 RN/ Notified SERG[facility] Blood 01/21/2025 7:40 AM CDT 01/21/2025 7:40 AM CDT us Denver Cochran MD LAB POCT ORDERABLES - ANNIE CE Final Result Performing Organization Address [facility] Co de Phone Number [address] [place] [address] * (ABNORMAL) eGFR (01/21/2025 6:55 AM CDT) [facility] eGFR 5(L) >=60 mL/min/1. 73 m2 Comment: Interpretive Data Reference Interval Normal >/= 90 mL/min/1.73m2 Mildly decreased* 60 - 89 mL/min/1.73m2 Mildly to moderately decreased 45 - 59 mL/min/1.73m2 Moderately to severely decreased 30 - 44 mL/min/1.73m2 Severely decreased 15 - 29 mL/min/1.73m2 Kidney Failure < 15 mL/min/1.73m2 *Relative to young adult level Estimated glomerular filtration rate is determined by the 2020 CKD-EPI equation recommended by the National Kidney Foundation (A Unifying Approach to GFR Estimation: Recommendations of the NKF-ASK Task Force on Reassessing the Inclusion of Race in Diagnosing Kidney Disease, JASN 2020). The CKD-EPI equation should not be used for patients with unstable renal function and has not been validated in children and those over 70. Current interpretive data was last reviewed 2021. Blood 01/21/2025 6:55 AM CDT 01/21/2025 6:58 AM CDT us Steve Wilson DO LAB BLOOD ORDERABLES F inal Result [facility] [address] [facility] Department [place] [address] * (ABNORMAL) Differential, auto (01/21/2025 6:55 AM CDT) [facility] Neutrophil abs 3.58 1.50 - 6.50 K/cumm Imm gran abs 0.08 0.00 - 0.10 K/cumm [facility] Lymphocyte abs 2.06 0.80 - 3.30 K/cumm [facility] Monocyte abs 1.71(H) 0.20 - 0.80 K/cumm [facility] Eosinophil abs 0.24 0.00 - 0.50 K/cumm [facility] Basophil abs 0.07 0.00 - 0.10 K/cumm [facility] Neutrophil pct 46.3 % [facility] Comment: Interpretive Data Percent cell count reference ranges are not reported, since discordance with absolute values may lead to misinterpretation of CBC data. Current Interpretive Data was last revised on 2017. Imm gran pct 1.0 % [facility] Comment: Interpretive Data Percent cell count reference ranges are not reported, since discordance with absolute values may lead to misinterpretation of CBC data. Current Interpretive Data was last revised on 2017. Lymphocyte pct 26.6 % [facility] Comment: Interpretive Data Percent cell count reference ranges are not reported, since discordance with absolute values may lead to misinterpretation of CBC data. Current Interpretive Data was last revised on 2017. Monocyte pct 22.1 % [facility] Comment: Interpretive Data Percent cell count reference ranges are not reported, since discordance with absolute values may lead to misinterpretation of CBC data. Current Interpretive Data was last revised on 2017. Eosinophil pct 3.1 % [facility] Comment: Interpretive Data Percent cell count reference ranges are not reported, since discordance with absolute values may lead to misinterpretation of CBC data. Current Interpretive Data was last revised on 2017. Basophil pct 0.9 % [facility] Comment: Interpretive Data Percent cell count reference ranges are not reported, since discordance with absolute values may lead to misinterpretation of CBC data. Current Interpretive Data was last revised on 2017. Blood 01/21/2025 6:55 AM CDT 01/21/2025 6:58 AM CDT Steve Wilson DO LAB BLOOD ORDERABLES F inal Result [facility] [address] [facility] Department [place] [address] * (ABNORMAL) CBC with auto differential (01/21/2025 6:55 AM CDT) WBC 7.74 3.80 - 9.90 K/cumm Hgb 8.8(L) 11.9 - 15.5 g/dL [facility] Hct 28.5(L) 35.6 - 45.5 % [facility] Plt 305 150 - 400 K/cumm [facility] MPV 9.6 9.1 - 12.3 fL [facility] RBC 3.19(L) 3.90 - 5.20 M/cumm [facility] MCV 89.3 81.3 - 96.4 fL [facility] MCH 27.6 27.1 - 33.3 pg [facility] MCHC 30.9(L) 32.3 - 35.7 g/dL [facility] RDW CV 17.0(H) 11.1 - 14.9 % [facility] RDW SD 55.4(H) 35.7 - 48.1 fL [facility] NRBC abs 0.00 0.00 - 0.01 K/cumm [facility] Blood 01/21/2025 6:55 AM CDT 01/21/2025 6:58 AM CDT Steve Wilson DO LAB BLOOD ORDERABLES F inal Result [facility] [address] [facility] Department [place] [address] * (ABNORMAL) Renal function panel (01/21/2025 6:55 AM CDT) Sodium 141 135 - 145 mmol/L Potassium, pl 4.1 3.3 - 4.9 mmol/L [facility] Chloride 101 97 - 110 mmol/L [facility] CO2 28 22 - 32 mmol/L [facility] Anion gap 12 2 - 15 mmol/L [facility] BUN 18 6 - 25 mg/dL [facility] Creatinine 7.68(H) 0.60 - 1.10 mg/dL [facility] Glucose 85 70 - 199 mg/dL [facility] Comment: Interpretive Data Fasting glucose >/= 126 mg/dl is diagnostic for diabetes. Fasting is defined as no caloric intake for at least 8 hours. Fasting glucose between 100 mg/dl to 125 mg/dl is diagnostic of prediabetes. In a patient with classic symptoms of hyperglycemia or hyperglycemic crisis, a random glucose >/= 200 mg/dl is diagnostic for diabetes. In the absence of unequivocal hyperglycemia, results should be confirmed by repeat testing. The classification and Diagnosis of Diabetes Diabetes Care 202; 46: S19-S40. Current interpretive data was last revised 2022. Calcium 9.8 8.5 - 10.3 mg/dL [facility] Phosphorus, pl 5.6(H) 2.3 - 4.5 mg/dL [facility] Albumin 3.2(L) 3.5 - 5.0 g/dL [facility] Blood 01/21/2025 6:55 AM CDT 01/21/2025 6:58 AM CDT [facility] LAB BLOOD ORDERABLES F inal Result Performing Organization Address [facility]/ZIP Co de Phone Number [address] [place] [address] * POCT glucose (01/20/2025 11:05 PM CDT) Glucose, POC 113 70 - 199 mg/dL Blood 01/20/2025 11:0 5 PM CDT 01/20/2025 11:05 PM CDT Result [facility] Steve Sanchezmarivel Keiralynda [facility] POCT ORDERABLES - DEVICE Final Result Performing Organization Address [facility] de Phone Number [address] [place] [address] * (ABNORMAL) Troponin T high-sensitivity 4-hour (01/20/2025 7:25 PM CDT) Pathologist [facility] Trop T hs 135(H) <=14 ng/L Comment: Interpretive Data For further hscTnT resources including the diagnostic algorithm and an aid in interpretation, copy and paste this link: https://nrl.testcatalog.org/show/hsTrop Current Interpretive Data last revised 2020. Trop T hs pct delta 0 % [facility] Trop T hs interp Insignificant [facility] Blood 01/20/2025 7:25 PM CDT 01/20/2025 7:28 PM CDT Shen Harris MD LAB BLOOD ORDERABLE S Final Result Performing Organization Address [facility] de Phone Number [address] [address] * (ABNORMAL) Troponin T high-sensitivity 2-hour (01/20/2025 6:03 PM CDT) Trop T hs 138(H) <=14 ng/L Comment: Interpretive Data For further hscTnT resources including the diagnostic algorithm and an aid in interpretation, copy and paste this link: https://nrl.testcatalog.org/show/hsTrop Current Interpretive Data last revised 2020. Trop T hs pct delta 2 % [facility] Trop T hs interp Insignificant [facility] Blood 01/20/2025 6:03 PM CDT 01/20/2025 6:06 PM CDT Shen Harris MD LAB BLOOD ORDERABLE S Final Result Performing Organization Address [facility] de Phone Number [address] [address] * (ABNORMAL) Urinalysis reflex to microscopic and culture Urine (01/20/2025 6:03 PM CDT) Color, ur Yellow Yellow Clarity, ur Cloudy(A) Clear [facility] Specific gravity, ur 1.014 1.003 - 1.030 [facility] pH, urine 8.0 [facility] Comment: Interpretive Data U rine pH is affected by diet, medications, systemic acid-base disturbances, and renal tubular function. pH may affect urinary stone formation. For example, urine pH below 6.0 may help reduce the tendency for calcium phosphate stones and pH greater than 6.0 may reduce the tendency for uric acid stone formation. Source: [facility] Current Interpretive Data was last revised on 2017 Protein, ur ql 2+(A) Negative [facility] Glucose, ur ql 1+(A) Negative [facility] Ketones, ur Negative Negative [facility] Bilirubin, ur Negative Negative [facility] Blood, ur Negative Negative [facility] Urobilinogen, ur <2.0 <2.0 mg/dL [facility] Nitrite, ur Negative Negative [facility] Leukocyte esterase, ur 3+(A) Negative [facility] UA reflex comment Reflex to microscopic UA will be performed. [facility] Urine 01/20/2025 6:03 PM CDT 01/20/2025 6:06 PM CDT Shen Harris MD LAB MICROBIOLOGY - GENERAL ORDERABLES Final Result Performing Organization Address [facility] de Phone Number [address] [place] [address] * (ABNORMAL) Urinalysis, microscopic only (01/20/2025 6:03 PM CDT) WBC, ur 6-10(A) 0 - 5 /HPF RBC, ur 0-2 0 - 2 /HPF [facility] Epithelial cells, squamous, ur 21-50(A) 0 - 5 /HPF [facility] Comment:Suggestive of contam ination. Consider recollection by clean catch. Hyaline casts, ur 1-5 0 - 10 /LPF [facility] Culture Reflex Comment Reflex conditions for urine culture (WBC >10) not met. [facility] Urine 01/20/2025 6:03 PM CDT 01/20/2025 6:06 PM CDT Shen Harris MD LAB URINE ORDERABLE S Final Result Performing Organization Address [facility] de Phone Number [address] [address] * CT Head and Neck WO Contrast (C) (01/20/2025 3:43 PM CDT) Anatomical Region Laterality Modality Head and Neck N/A Computed Tomogra phy 01/20/2025 3:46 PM CDT Narrative 01/20/2025 4:11 PM CDT EXAM DESCRIPTION: CT HEAD AND NECK WO CONTRAST (C) REASON FOR STUDY: Stroke Pt has iodine allergy, MD wanted to do a without contrast scan. Patient brought in from home by significant other for complaints of coughing, increased confusion x 1 week, and left flank pain. Patient endorses felling SOB, coughing, and being confused. Pt is dialysis, last full tx today. TECHNIQUE: Axial images acquired through the brain without intravenous contrast. Axial images through the cervical spine with sagittal and coronal reformatted images. Images stored on PACS. Automated exposure control was used as a dose optimization technique for this examination. COMPARISON: Prior CT head 01/20/2025, earlier today. FINDINGS: HEAD BRAIN: there are no extra-axial fluid collections. No evidence of hemorrhage. Cho-white matter differentiation is normal. Ventricles and sulci are moderately prominent, but symmetric. No change. No shift of midline structures or of mass effect. There is patchy moderate decreased density of periventricular white matter. Chronic small vessel ischemic type change. Lacunar infarct right thalamic region, unchanged. EXTRA-AXIAL SPACES: No fluid collections. No masses. CALVARIUM: No acute fracture. SINUSES/MASTOIDS: No fluid or mucosal thickening. 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 OTHER: There is atherosclerotic change of the bilateral vertebral arteries. There is atherosclerotic change seen of the cavernous carotids. CERVICAL SPINE ALIGNMENT: MPR images were also performed on my workstation. There is straightening of the cervical spine. VERTEBRAE: There is preservation of vertebral body height. No acute fracture. [id number] multilevel degenerative endplate change. There is only mild multilevel facet arthropathy. DISCS: Mild disc space narrowing C3-4, more moderate to severe at C4-5. Moderate at C5-6. Moderate to severe at C6-7 with mild change through the remainder of the cervical spine and visualized upper thoracic spine. HARDWARE: None in the spine. INDIVIDUAL DISC LEVELS: C2-3 demonstrates no significant osseous spinal stenosis or neural foraminal narrowing. C3-4 demonstrates no significant osseous spinal stenosis or neural foraminal narrowing. C4-5 demonstrates no significant osseous spinal stenosis. No significant neural foraminal narrowing. C5-6 demonstrates no significant osseous spinal stenosis or neural foraminal narrowing. C6-7 demonstrates no significant osseous spinal stenosis. Mild bilateral neural foraminal narrowing. C7-T1 demonstrates no significant osseous spinal stenosis or neural foraminal narrowing. UPPER THORACIC: Incompletely imaged. Only mild spondylosis. LUNG APICES: No confluent infiltrate or pneumothorax. Mild mosaic pattern favors small airway disease. Dependent atelectasis. Mild respiratory motion. NECK SOFT TISSUES: There is atherosclerotic change of the thoracic aorta. There is coronary artery calcification. There is atherosclerotic change of the vertebral arteries towards the basilar artery. This is mild. There is mild atherosclerotic change of cavernous carotids. There is zabs-cd-zddvkqoi atherosclerotic change of the right carotid bulb. Milder change on the left. Moderate atherosclerotic change of right where distal innominate artery. Mild atherosclerotic change origin of the left vertebral artery and more moderate of the left subclavian artery. OTHER: No other significant findings. IMPRESSION: No acute intracranial findings. There is moderate age-related atrophy and chronic small vessel ischemic type change. No acute fracture cervical spine. Uehq-tx-tuykmtix spondylosis cervical spine. Ykud-hq-ijnwoaak atherosclerotic change as above. 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 If there is persistent clinical concern of acute ischemia, consider MRI. Preliminary findings called by the operation support center to LIONEL Erickson at 3:53 p.m., 01/20/2025. THIS IS AN ELECTRONICALLY VERIFIED FINAL REPORT 01/20/2025 4:11 PM - Electronically signed by Nir BETANCUR T: Report ID: [id number] Reading Location: [place] [address] Procedure Note Nir Last MD - 01/20/2025 EXAM DESCRIPTION: CT HEAD AND NECK WO CONTRAST (C) REASON FOR STUDY: Stroke Pt has iodine allergy, wanted to do a without contrast scan. Patient brought in from home by significant other for complaints of coughing, increased confusion x 1 week, and left flank pain. Patient endorses felling SOB, coughing, and being confused. Pt is dialysis, last full tx today. TECHNIQUE: Axial images acquired through the brain without intravenous contrast. Axial images through the cervical spine with sagittal andcoronal reformatted images. Images stored on PACS. Automated exposure control was used as a dose optimization technique for this examination. COMPARISON: Prior CT head 01/20/2025, earlier today. FINDINGS: HEAD BRAIN: there are no extra-axial fluid collections. No evidence of hemorrhage. Cho-white matter differentiation is normal. Ventricles andsulci are moderately prominent, but symmetric. No change. No shift of midline structures or of mass effect. There is patchy moderate decreased densityof periventricular white matter. Chronic small vessel ischemic type change. Lacunar infarct right thalamic region, unchanged. EXTRA-AXIAL SPACES: No fluid collections. No masses. CALVARIUM: No acute fracture. SINUSES/MASTOIDS: No fluid or mucosal thickening. 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 OTHER: There is atherosclerotic change of the bilateral vertebralarteries. There is atherosclerotic change seen of the cavernous carotids. CERVICAL SPINE ALIGNMENT: MPR images were also performed on my workstation. There is straightening of the cervical spine. VERTEBRAE: There is preservation of vertebral body height. No acute fracture. Ipxf-mx-tkmvfwev multilevel degenerative endplate change.There is only mild multilevel facet arthropathy. DISCS: Mild disc space narrowing C3-4, more moderate to severe at C4-5. Moderate at C5-6. Moderate to severe at C6-7 with mild change through the remainder of the cervical spine and visualized upper thoracic spine. HARDWARE: None in the spine. INDIVIDUAL DISC LEVELS: C2-3 demonstrates no significant osseous spinal stenosis or neuralforaminal narrowing. C3-4 demonstrates no significant osseous spinal stenosis or neuralforaminal narrowing. C4-5 demonstrates no significant osseous spinal stenosis. No significant neural foraminal narrowing. C5-6 demonstrates no significant osseous spinal stenosis or neuralforaminal narrowing. C6-7 demonstrates no significant osseous spinal stenosis. Mild bilateral neural foraminal narrowing. C7-T1 demonstrates no significant osseous spinal stenosis or neuralforaminal narrowing. UPPER THORACIC: Incompletely imaged. Only mild spondylosis. LUNG APICES: No confluent infiltrate or pneumothorax. Mild mosaic pattern favors small airway disease. Dependent atelectasis. Mild respiratorymotion. NECK SOFT TISSUES: There is atherosclerotic change of the thoracicaorta. There is coronary artery calcification. There is atherosclerotic change of the vertebral arteries towards thebasilar artery. This is mild. There is mild atherosclerotic change of cavernous carotids. There is kucx-cx-qgryritp atherosclerotic change of the right carotid bulb. Milder change on the left. Moderate atherosclerotic changeof right where distal innominate artery. Mild atherosclerotic change originof the left vertebral artery and more moderate of the left subclavian artery. OTHER: No other significant findings. IMPRESSION: No acute intracranial findings. There is moderate age-related atrophy and chronic small vessel ischemictype change. No acute fracture cervical spine. Hzbp-ra-ylkmroti spondylosis cervical spine. Ypvm-ek-pneyqnxc atherosclerotic change as above. Again seen is likely chronic lens dislocation of the right orbitunchanged dating back to older exam of 11/21/2022. If there is persistent clinical concern of acute ischemia, consider MRI. Preliminary findings called by the operation support center to LIONEL Lewis 3:53 p.m., 01/20/2025. THIS IS AN ELECTRONICALLY VERIFIED FINAL REPORT 01/20/2025 4:11 PM - Electronically signed by Nir Last M.D. MJ T: Report ID: [id number] Reading Location: [place] [address] Shen Harris MD IMG CT PROCEDURES F inal Result * (ABNORMAL) Troponin T high-sensitivity series (baseline, 2hr, 4hr, 6hr) (01/20/2025 3:21 PM CDT) [facility] Trop T hs 135(H) <=14 ng/L Comment: Interpretive Data For further hscTnT resources including the diagnostic algorithm and an aid in interpretation, copy and paste this link: [email or web address].testcatalog.org/[email or web address] Current Interpretive Data last revised 2020. Blood 01/20/2025 3:21 PM CDT 01/20/2025 3:53 PM CDT Shen Harris MD LAB BLOOD ORDERABLE S Final Result [facility] [address] [facility] Department [place] [address] * (ABNORMAL) eGFR (01/20/2025 3:21 PM CDT) [facility] eGFR 7(L) >=60 mL/min/1. 73 m2 Comment: Interpretive Data Reference Interval Normal >/= 90 mL/min/1.73m2 Mildly decreased* 60 - 89 mL/min/1.73m2 Mildly to moderately decreased 45 - 59 mL/min/1.73m2 Moderately to severely decreased 30 - 44 mL/min/1.73m2 Severely decreased 15 - 29 mL/min/1.73m2 Kidney Failure < 15 mL/min/1.73m2 *Relative to young adult level Estimated glomerular filtration rate is determined by the 2020 CKD-EPI equation recommended by the National Kidney Foundation (A Unifying Approach to GFR Estimation: Recommendations of the NKF-ASK Task Force on Reassessing the Inclusion of Race in Diagnosing Kidney Disease, JASN 2020). The CKD-EPI equation should not be used for patients with unstable renal function and has not been validated in children and those over 70. Current interpretive data was last reviewed 2021. Blood 01/20/2025 3:21 PM CDT 01/20/2025 3:53 PM CDT us Shen Harris MD LAB BLOOD ORDERABLE S Final Result [facility] [address] [facility] Department [place] [address] * (ABNORMAL) Comprehensive metabolic panel (01/20/2025 3:21 PM CDT) Sodium 140 135 - 145 mmol/L Potassium, pl 4.3 3.3 - 4.9 mmol/L [facility] Comment:Hemolyzed; Potassium value may be falsely elevated by as much as 1.0 mmol/L. Suggest redraw and reanalysis. Chloride 102 97 - 110 mmol/L [facility] CO2 22 22 - 32 mmol/L [facility] Anion gap 16(H) 2 - 15 mmol/L [facility] BUN 13 6 - 25 mg/dL [facility] Creatinine 5.86(H) 0.60 - 1.10 mg/dL [facility] Glucose 123 70 - 199 mg/dL [facility] Comment: Interpretive Data Fasting glucose >/= 126 mg/dl is diagnostic for diabetes. Fasting is defined as no caloric intake for at least 8 hours. Fasting glucose between 100 mg/dl to 125 mg/dl is diagnostic of prediabetes. In a patient with classic symptoms of hyperglycemia or hyperglycemic crisis, a random glucose >/= 200 mg/dl is diagnostic for diabetes. In the absence of unequivocal hyperglycemia, results should be confirmed by repeat testing. The classification and Diagnosis of Diabetes Diabetes Care 2021; 46: S19-S40. Current interpretive data was last revised 2022. Calcium 9.0 8.5 - 10.3 mg/dL [facility] Bilirubin, total 0.3 0.1 - 1.2 mg/dL [facility] Protein, pl 6.1(L) 6.5 - 8.5 g/dL [facility] Albumin 3.0(L) 3.5 - 5.0 g/dL [facility] Alk phos 111 40 - 130 Units/L [facility] ALT <5(L) 7 - 45 Units/L [facility] AST See Comment 10 - 45 [facility] Comment:Credited; Hemolyzed Specimen Blood 01/20/2025 3:21 PM CDT 01/20/2025 3:53 PM CDT us Shen Harris MD LAB BLOOD ORDERABLE S Final Result [facility] [address] [facility] Department [place] [address] * (ABNORMAL) POC Blood Gas and Chemistries, Venous - (01/20/2025 2:54 PM CDT) pH,alma POC 7.47(H) 7.32 - 7.43 pCO2, alma POC 47 40 - 50 mmHg [facility] pO2,alma POC 41 mmHg [facility] Comment: Interpretive Data No reference range established. Current interpretive data was last revised 2020. HCO3, alma (Calc) POC 34(H) 20 - 30 mmol/L [facility] Base excess, alma POC 9 mmol/L [facility] Comment: Interpretive Data No reference range established. Current interpretive data was last revised 2020. Oxy Hgb, alma POC 68.5(L) 90.0 - 95.0 % [facility] Met Hgb, alma POC 0.7 0.0 - 1.9 % [facility] Carboxy Hgb, alma POC 1.2 0.0 - 2.9 % [facility] Hemoglobin, alma POC 9.8(L) 11.9 - 15.5 g/dL [facility] Sodium, alma POC 137 135 - 145 mmol/L [facility] Potassium, alma POC 4.5 3.3 - 4.9 mmol/L [facility] Comment: Interpretive Data This method is not able to assess for hemolysis, which may falsely increase potassium concentrations. If further testing is needed to evaluate this result, consider in-laboratory plasma potassium. Current Interpretive Data was last revised on 2022. Glucose, alma POC 153 70 - 199 mg/dL [facility] Ionized Calcium, alma POC 4.64 4.50 - 5.10 mg/dL [facility] Lactate, alma POC 2.2(H) 0.7 - 2.0 mmol/L [facility] Blood 01/20/2025 2:54 PM CDT 01/20/2025 2:54 PM CDT us Shen Harris MD LAB POCT ORDERABLES - DEVICE Final Result [facility] [facility] Department [place] [address] * (ABNORMAL) eGFR (01/20/2025 2:26 PM CDT) eGFR 8(L) >=60 mL/min/1. 73 m2 Comment: Interpretive Data Reference Interval Normal >/= 90 mL/min/1.73m2 Mildly decreased* 60 - 89 mL/min/1.73m2 Mildly to moderately decreased 45 - 59 mL/min/1.73m2 Moderately to severely decreased 30 - 44 mL/min/1.73m2 Severely decreased 15 - 29 mL/min/1.73m2 Kidney Failure < 15 mL/min/1.73m2 *Relative to young adult level Estimated glomerular filtration rate is determined by the 2020 CKD-EPI equation recommended by the National Kidney Foundation (A Unifying Approach to GFR Estimation: Recommendations of the NKF-ASK Task Force on Reassessing the Inclusion of Race in Diagnosing Kidney Disease, JASN 2020). The CKD-EPI equation should not be used for patients with unstable renal function and has not been validated in children and those over 70. Current interpretive data was last reviewed 2021. Blood 01/20/2025 2:26 PM CDT 01/20/2025 2:29 PM CDT us Juana HUYNH LAB BLOOD ORDERABLES Final Resu lt [place] [id number] [facility] Department [place] [address] * (ABNORMAL) Differential, auto (01/20/2025 2:26 PM CDT) Pathologist [facility] Neutrophil abs 5.19 1.50 - 6.50 K/cumm Imm gran abs 0.08 0.00 - 0.10 K/cumm [facility] Lymphocyte abs 1.82 0.80 - 3.30 K/cumm [facility] Monocyte abs 1.29(H) 0.20 - 0.80 K/cumm [facility] Eosinophil abs 0.19 0.00 - 0.50 K/cumm [facility] Basophil abs 0.07 0.00 - 0.10 K/cumm [facility] Neutrophil pct 60.1 % [facility] Comment: Interpretive Data Percent cell count reference ranges are not reported, since discordance with absolute values may lead to misinterpretation of CBC data. Current Interpretive Data was last revised on 2017. Imm gran pct 0.9 % [facility] Comment: Interpretive Data Percent cell count reference ranges are not reported, since discordance with absolute values may lead to misinterpretation of CBC data. Current Interpretive Data was last revised on 2017. Lymphocyte pct 21.1 % [facility] Comment: Interpretive Data Percent cell count reference ranges are not reported, since discordance with absolute values may lead to misinterpretation of CBC data. Current Interpretive Data was last revised on 2017. Monocyte pct 14.9 % [facility] Comment: Interpretive Data Percent cell count reference ranges are not reported, since discordance with absolute values may lead to misinterpretation of CBC data. Current Interpretive Data was last revised on 2017. Eosinophil pct 2.2 % [facility] Comment: Interpretive Data Percent cell count reference ranges are not reported, since discordance with absolute values may lead to misinterpretation of CBC data. Current Interpretive Data was last revised on 2017. Basophil pct 0.8 % [facility] Comment: Interpretive Data Percent cell count reference ranges are not reported, since discordance with absolute values may lead to misinterpretation of CBC data. Current Interpretive Data was last revised on 2017. Blood 01/20/2025 2:26 PM CDT 01/20/2025 2:29 PM CDT us Juana HUYNH LAB BLOOD ORDERABLES Final Resu lt [place] [id number] [facility] Department [place] [address] * (ABNORMAL) CBC with auto differential (01/20/2025 2:26 PM CDT) WBC 8.64 3.80 - 9.90 K/cumm Hgb 9.5(L) 11.9 - 15.5 g/dL [facility] Hct 30.9(L) 35.6 - 45.5 % [facility] Plt 349 150 - 400 K/cumm [facility] MPV 9.6 9.1 - 12.3 fL [facility] RBC 3.54(L) 3.90 - 5.20 M/cumm [facility] MCV 87.3 81.3 - 96.4 fL [facility] MCH 26.8(L) 27.1 - 33.3 pg [facility] MCHC 30.7(L) 32.3 - 35.7 g/dL [facility] RDW CV 17.0(H) 11.1 - 14.9 % [facility] RDW SD 53.7(H) 35.7 - 48.1 fL [facility] NRBC abs 0.00 0.00 - 0.01 K/cumm [facility] Blood Venous blood specimen / Unknown 01/20/2025 2:26 PM CDT 01/20/2025 2:29 PM CDT Narrative [facility] - 01/20/2025 2:39 PM CDT Potential Stroke Patient Shen Harris MD LAB BLOOD ORDERABLE S Final Result Performing Organization Address [facility]/ZIP Co de Phone Number [facility] [address] [address] * aPTT (01/20/2025 2:26 PM CDT) aPTT 27 22 - 37 sec Comment: Interpretive data aPTT test has not been evaluated for monitoring heparin therapy. The anti-Xa is the preferred test. Current interpretive data was last revised on 2019. Blood Venous blood specimen / Unknown 01/20/2025 2:26 PM CDT 01/20/2025 2:29 PM CDT [facility]ative [facility] 01/20[facility] 2:44 PM CDT Potential stroke patient. Result [facility] Shen Harris MD LAB BLOOD ORDERABLE S Final Result Performing Organization Address [facility] Co de Phone Number ELY[address] [address] * (ABNORMAL) Protime-INR (01/20/2025 2:26 PM CDT) PT 15.2(H) 12.0 - 14.6 sec Comment:Ref Range High INR 1.2 0.9 - 1.2 [facility] Comment: Ref Range High Interpretive data Oral anticoagulant therapeutic ranges: Venous thromboembolism prophylaxis or treatment: 2.0-3.0 CARDIOLOGY Standard range: 2.0-3.0 High-intensity range: 2.5-3.5 Refer to indication-specific guidelines for appropriate target ranges for prosthetic heart valve replacement. Current interpretive data was last revised on 2019. Blood 01/20/2025 2:26 PM CDT 01/20/2025 2:29 PM CDT Shen Harris MD LAB BLOOD ORDERABLE S Final Result [facility] [address] [facility] Department [place] [address] * (ABNORMAL) Comprehensive metabolic panel (01/20/2025 2:26 PM CDT) Sodium 138 135 - 145 mmol/L Potassium, pl See Comment 3.3 - 4.9 [facility] Comment:Credited; Hemolyzed Specimen Chloride 99 97 - 110 mmol/L [facility] CO2 26 22 - 32 mmol/L [facility] Anion gap 13 2 - 15 mmol/L [facility] BUN 13 6 - 25 mg/dL [facility] Creatinine 5.78(H) 0.60 - 1.10 mg/dL [facility] Glucose 182 70 - 199 mg/dL [facility] Comment: Interpretive Data Fasting glucose >/= 126 mg/dl is diagnostic for diabetes. Fasting is defined as no caloric intake for at least 8 hours. Fasting glucose between 100 mg/dl to 125 mg/dl is diagnostic of prediabetes. In a patient with classic symptoms of hyperglycemia or hyperglycemic crisis, a random glucose >/= 200 mg/dl is diagnostic for diabetes. In the absence of unequivocal hyperglycemia, results should be confirmed by repeat testing. The classification and Diagnosis of Diabetes Diabetes Care 202; 46: S19-S40. Current interpretive data was last revised 2022. Calcium 9.4 8.5 - 10.3 mg/dL [facility] Bilirubin, total 0.4 0.1 - 1.2 mg/dL [facility] Protein, pl 7.1 6.5 - 8.5 g/dL [facility] Albumin 3.4(L) 3.5 - 5.0 g/dL [facility] Alk phos 124 40 - 130 Units/L [facility] Comment:Hemolyzed; result ma y be falsely decreased ALT See Comment [facility] Comment:Credited; Hemolyzed Specimen AST See Comment [facility] Comment:Credited; Hemolyzed Specimen Blood Venous blood specimen / Unknown 01/20/2025 2:26 PM CDT 01/20/2025 2:29 PM CDT Narrative [facility] - 01/20/2025 3:11 PM CDT Potential Stroke Patient Shen Harris MD LAB BLOOD ORDERABLE S Final Result Performing Organization Address [facility]/ZIP Co de Phone Number [facility] [address] [facility] Department [place] [address] * ECG 12 lead (01/20/2025 2:18 PM CDT) Ventricular Rate EKG/Min 89 BPM [facility] Atrial Rate 89 BPM [facility] AK-Interval (MSEC) 150 ms [facility] QRS-Interval (MSEC) 130 ms [facility] QT-Interval (MSEC) 402 ms [facility] QTc 489 ms [facility] P [place] 72 degrees [facility] R [place] -29 degrees [facility] T [place] 36 degrees [facility] Diagnosis Normal sinus rhythm Possible Left atrial enlargement Right bundle branch block Abnormal ECG When compared with ECG of 13-APR-2023 10:12, QRS axis Shifted left Confirmed by TALAT DRAKE M.D. ([id number]) on 01/21/2025 11:24:18 AM [facility] 01/20/2025 2:18 PM CDT 01/21/2025 11:24 AM CDT Shen Harris MD ECG ORDERABLES Fin al Result Performing Organization Address [facility] Co de Phone Number [facility] * CT Stroke Head WO Contrast (01/20/2025 2:12 PM CDT) Anatomical Region Laterality Modality Head N/A Computed Tomogra phy 01/20/2025 2:14 PM CDT Narrative 01/20/2025 2:18 PM CDT EXAM DESCRIPTION: CT STROKE HEAD WO CONTRAST REASON FOR STUDY: Stroke, follow up, Stroke Patient brought in from home by significant other for complaints of coughing, increased confusion x 1 week, and left flank pain. Patient endorses felling SOB, coughing, and being confused. Pt is dialysis, last full tx today. TECHNIQUE: Axial images acquired through the brain without intravenous contrast. Images stored on PACS. Automated exposure control was used as a dose optimization technique for this examination. COMPARISON: 11/21/2022 FINDINGS: BRAIN: No hemorrhage, edema or mass effect. No recent infarct. Periventricular hypodensities suggesting chronic ischemic change generally similar to previous. EXTRA-AXIAL SPACES: No fluid collections. No masses. CALVARIUM: No fracture. SINUSES/MASTOIDS: Mild mucoperiosteal thickening sphenoid sinus. ORBITS: Postsurgical change similar to prior exam. OTHER: No other significant abnormality. IMPRESSION: No acute intracranial findings. Results communicated to the ordering provider by Clinical Radiologist operations support personnel at the time of interpretation. THIS IS AN ELECTRONICALLY VERIFIED FINAL REPORT 01/20/2025 2:18 PM - Electronically signed by Wallace MYERS T: Report ID: [id number] Reading Location: [place] [address] Procedure Note Wallace Wadsworth MD - 01/20/2025 EXAM DESCRIPTION: CT STROKE HEAD WO CONTRAST REASON FOR STUDY: Stroke, follow up, Stroke Patient brought in from home by significant other for complaints ofcoughing, increased confusion x 1 week, and left flank pain. Patient endorses felling SOB, coughing, and being confused. Pt is dialysis, last full tx today. TECHNIQUE: Axial images acquired through the brain without intravenous contrast. Images stored on PACS. Automated exposure control was used asa dose optimization technique for this examination. COMPARISON: 11/21/2022 FINDINGS: BRAIN: No hemorrhage, edema or mass effect. No recent infarct. Periventricular hypodensities suggesting chronic ischemic change generally similar to previous. EXTRA-AXIAL SPACES: No fluid collections. No masses. CALVARIUM: No fracture. SINUSES/MASTOIDS: Mild mucoperiosteal thickening sphenoid sinus. ORBITS: Postsurgical change similar to prior exam. OTHER: No other significant abnormality. IMPRESSION: No acute intracranial findings. Results communicated to the ordering provider by Clinical Radiologist operations support personnel at the time of interpretation. THIS IS AN ELECTRONICALLY VERIFIED FINAL REPORT 01/20/2025 2:18 PM - Electronically signed by Wallace Wadsworth M.D. RB T: Report ID: [id number] Reading Location: [place] [address] Shen Harris MD IMG CT PROCEDURES F inal Result * (ABNORMAL) POCT glucose (01/20/2025 2:06 PM CDT) Glucose, POC 201(H) 70 - 199 mg/dL Glucose comment 1 RN/MD Notified [facility] Blood 01/20/2025 2:06 PM CDT 01/20/2025 2:06 PM CDT Notinfile Unknown LAB POCT ORDERABLES - DEVICE F inal Result Performing Organization Address [facility] Co de Phone Number [facility] [address] [place] [address] * POCT glucose (01/07/2025 12:19 PM CDT) Glucose, POC 123 70 - 199 mg/dL Blood 01/07/2025 12:1 9 PM CDT 01/07/2025 12:19 PM CDT Reyes Hawley MD LAB POCT ORDERABLES - ANNIE CE Final Result Performing Organization Address [facility] Co de Phone Number ELY[address] [place] [address] * FL Fluoroscopy < 1 Hour (01/07/2025 11:54 AM CDT) Narrative FRANCISCA_JENN_DERRICK_MHE - 01/07/2025 11:55 AM CDT The images from this study are not interpreted by Radiology. Please refer to the physician's procedure / OR operative note. Reyes Hawley MD IMG FLUOROSCOPY PROCEDURES Final Result Performing Organization Address [facility] Co de Phone Number [email or web address] * AK AN ELECTIVE SUPRAGLOTTIC AIRWAY, AK AN PROCEDURE PLACEHOLDER (01/07/2025 11:25 AM CDT) Narrative Render, Julia K., ETL ANALYST - 01/07/2025 11:25 AM CDT Julia Puckett CRNA 01/07/2025 11:26 AM Airway Patient location: OR Urgency: elective Indications for airway management: anesthesia Difficult airway: no Staff: Supervising provider: José Parham MD Placed by: ETL ANALYST: Julia Puckett CRNA Emergent airway documentation: Risks and benefits discussed: yes Consent obtained: yes Consent given by: patient Airway prep: Preoxygenated: yes Patient position: sniffing Mask difficulty assessment: 0 - not attempted Spontaneous ventilation during airway: absent Sedation level during airway: deep Final airway details: Final airway type: supraglottic airway Final supraglottic airway: classic SGA size: 4 Number of attempts: 1 Additional comments: Atraumatic. Dentition remains the same as preop. Placed by Ronnie LLANOS without complications José Parham MD ANESTHESIA ORDERABLES Final Result * (ABNORMAL) POC Blood Gas and Chemistries, Venous - (01/07/2025 9:57 AM CDT) pH,alma POC 7.40 7.32 - 7.43 pCO2, alma POC 31(L) 40 - 50 mmHg [facility] pO2,alma POC 48 mmHg [facility] Comment: Interpretive Data No reference range established. Current interpretive data was last revised 2020. HCO3, alma (Calc) POC 19(L) 20 - 30 mmol/L [facility] Base excess, alma POC -5 mmol/L [facility] Comment: Interpretive Data No reference range established. Current interpretive data was last revised 2020. Hemoglobin, alma POC 10.2(L) 11.9 - 15.5 g/dL [facility] Hematocrit, alma POC 30.0(L) 35.6 - 45.5 % [facility] Sodium, alma POC 138 135 - 145 mmol/L [facility] Potassium, alma POC 4.4 3.3 - 4.9 mmol/L [facility] Comment: Interpretive Data This method is not able to assess for hemolysis, which may falsely increase potassium concentrations. If further testing is needed to evaluate this result, consider in-laboratory plasma potassium. Current Interpretive Data was last revised on 2022. Glucose, alma POC 150 70 - 199 mg/dL [facility] Ionized Calcium, alma POC 4.90 4.50 - 5.10 mg/dL [facility] Blood 01/07/2025 9:57 AM CDT 01/07/2025 9:57 AM CDT Reyes Hawley MD LAB POCT ORDERABLES - ANNIE CE Final Result Performing Organization Address [facility] de Phone Number [address] [phone] * (ABNORMAL) Hemoglobin A1c (01/07/2025 9:55 AM CDT) Pathologist [facility] Hgb A1C 6.9(H) 4.0 - 5.6 % Estimated Average Glucose 151 mg/dL [facility] Comment: The ADA recommends reporting an estimated Average Glucose (eAG) with all Hemoglobin A1c results using the equation derived from a study of 507 normal and diabetic adults. Minority populations were underrepresented and children were not included. (Diabetes Care 31:1732-8804, 2008). The eAG is not equivalent to a fasting glucose. Blood 01/07/2025 9:55 AM CDT 01/07/2025 10:01 AM CDT Kathy Darby NP LAB BLOOD ORDERABLES Final Result Performing Organization Address [facility] de Phone Number [address] [address] * (ABNORMAL) eGFR (01/06/2025 9:30 AM CDT) Pathologist [facility] eGFR 4(L) >=60 mL/min/1. 73 m2 Comment: Interpretive Data Reference Interval Normal >/= 90 mL/min/1.73m2 Mildly decreased* 60 - 89 mL/min/1.73m2 Mildly to moderately decreased 45 - 59 mL/min/1.73m2 Moderately to severely decreased 30 - 44 mL/min/1.73m2 Severely decreased 15 - 29 mL/min/1.73m2 Kidney Failure < 15 mL/min/1.73m2 *Relative to young adult level Estimated glomerular filtration rate is determined by the 2020 CKD-EPI equation recommended by the National Kidney Foundation (A Unifying Approach to GFR Estimation: Recommendations of the NKF-ASK Task Force on Reassessing the Inclusion of Race in Diagnosing Kidney Disease, JASN 2020). The CKD-EPI equation should not be used for patients with unstable renal function and has not been validated in children and those over 70. Current interpretive data was last reviewed 2021. Blood 01/06/2025 9:30 AM CDT 01/06/2025 9:37 AM CDT us Reyes Hawley MD LAB BLOOD ORDERABLES Final Result [place] [id number] [facility] Department [place] [address] * (ABNORMAL) Differential, auto (01/06/2025 9:30 AM CDT) Neutrophil abs 6.43 1.50 - 6.50 K/cumm Imm gran abs 0.04 0.00 - 0.10 K/cumm [facility] Lymphocyte abs 1.53 0.80 - 3.30 K/cumm [facility] Monocyte abs 1.25(H) 0.20 - 0.80 K/cumm [facility] Eosinophil abs 0.26 0.00 - 0.50 K/cumm [facility] Basophil abs 0.06 0.00 - 0.10 K/cumm [facility] Neutrophil pct 67.2 % [facility] Comment: Interpretive Data Percent cell count reference ranges are not reported, since discordance with absolute values may lead to misinterpretation of CBC data. Current Interpretive Data was last revised on 2017. Imm gran pct 0.4 % [facility] Comment: Interpretive Data Percent cell count reference ranges are not reported, since discordance with absolute values may lead to misinterpretation of CBC data. Current Interpretive Data was last revised on 2017. Lymphocyte pct 16.0 % [facility] Comment: Interpretive Data Percent cell count reference ranges are not reported, since discordance with absolute values may lead to misinterpretation of CBC data. Current Interpretive Data was last revised on 2017. Monocyte pct 13.1 % [facility] Comment: Interpretive Data Percent cell count reference ranges are not reported, since discordance with absolute values may lead to misinterpretation of CBC data. Current Interpretive Data was last revised on 2017. Eosinophil pct 2.7 % [facility] Comment: Interpretive Data Percent cell count reference ranges are not reported, since discordance with absolute values may lead to misinterpretation of CBC data. Current Interpretive Data was last revised on 2017. Basophil pct 0.6 % [facility] Comment: Interpretive Data Percent cell count reference ranges are not reported, since discordance with absolute values may lead to misinterpretation of CBC data. Current Interpretive Data was last revised on 2017. Blood 01/06/2025 9:30 AM CDT 01/06/2025 9:37 AM CDT Reyes Hawley MD LAB BLOOD ORDERABLES Final Result [facility] [address] [facility] Department [place] [address] * (ABNORMAL) CBC with auto differential (01/06/2025 9:30 AM CDT) WBC 9.57 3.80 - 9.90 K/cumm Hgb 9.9(L) 11.9 - 15.5 g/dL [facility] Hct 31.1(L) 35.6 - 45.5 % [facility] Plt 268 150 - 400 K/cumm [facility] MPV 10.2 9.1 - 12.3 fL [facility] RBC 3.54(L) 3.90 - 5.20 M/cumm [facility] MCV 87.9 81.3 - 96.4 fL [facility] MCH 28.0 27.1 - 33.3 pg [facility] MCHC 31.8(L) 32.3 - 35.7 g/dL [facility] RDW CV 17.4(H) 11.1 - 14.9 % [facility] RDW SD 56.5(H) 35.7 - 48.1 fL [facility] NRBC abs 0.00 0.00 - 0.01 K/cumm [facility] Blood 01/06/2025 9:30 AM CDT 01/06/2025 9:37 AM CDT Reyes Hawley MD LAB BLOOD ORDERABLES Final Result [address] [place] [place] [address] * (ABNORMAL) Basic metabolic panel (01/06/2025 9:30 AM CDT) Pathologist [facility] Sodium 139 135 - 145 mmol/L Potassium, pl 4.1 3.3 - 4.9 mmol/L [facility] Chloride 104 97 - 110 mmol/L [facility] CO2 20(L) 22 - 32 mmol/L [facility] Anion gap 15 2 - 15 mmol/L [facility] BUN 47(H) 6 - 25 mg/dL [facility] Creatinine 9.55(H) 0.60 - 1.10 mg/dL [facility] Glucose 140 70 - 199 mg/dL [facility] Comment: Interpretive Data Fasting glucose >/= 126 mg/dl is diagnostic for diabetes. Fasting is defined as no caloric intake for at least 8 hours. Fasting glucose between 100 mg/dl to 125 mg/dl is diagnostic of prediabetes. In a patient with classic symptoms of hyperglycemia or hyperglycemic crisis, a random glucose >/= 200 mg/dl is diagnostic for diabetes. In the absence of unequivocal hyperglycemia, results should be confirmed by repeat testing. The classification and Diagnosis of Diabetes Diabetes Care 2021; 46: S19-S40. Current interpretive data was last revised 2022. Calcium 9.6 8.5 - 10.3 mg/dL [facility] Blood 01/06/2025 9:30 AM CDT 01/06/2025 9:37 AM CDT Reyes Hawley MD LAB BLOOD ORDERABLES Final Result [address] [place] [place] [address] * US Hemodialysis Access (01/06/2025 9:18 AM CDT) Anatomical Region Laterality Modality Vascular N/A Ultrasound 01/06/2025 8:46 AM CDT Narrative 01/06/2025 2:55 PM CDT Hemodialysis Access Duplex Report Patient Name: EMILY MAYNARD R : 1960 (64y 2m) Gender: F Study Date: 01/06/2025 08:46:25 AM Stamp Classifier: Celeste Whitaker Provider: REYES HAWLEY Ref Provider: REYES HAWLEY PROCEDURES: Vascular Report: Color Duplex ultrasound with velocity measurements was performed of the left upper extremity access graft. INDICATIONS: Dialysis graft complication and No palpable thrill. HISTORY: The patient had a previous vascular surgery on 01/2022 Thrombectomy left FA loop graft. COMPARISONS: The previous exam was completed on 12/27/22. ACCESS GRAFT: Vessel Velocity Lt Location Forearm AV loop graft Lt [place] Artery 58.00 cm/sec Lt Arterial Anast 24.00 cm/sec Lt Prx Graft 0.00 cm/sec Lt Prx-Mid Graft 0.00 cm/sec Lt Mid Graft 0.00 cm/sec Lt Mid-Dist Graft 0.00 cm/sec Lt Dst Graft 0.00 cm/sec Lt Venous Anast 0.00 cm/sec Lt [place] Vein 0.00 cm/sec FINDINGS: Study Quality: The study quality is adequate. Left: Basilic vein occluded. AX vein 14 cm/sec, 13 cm/sec. SCV 20 cm/sec, 19 cm/sec. CONCLUSIONS: 1. The AV graft is occluded. Electronically Signed By: Reyes Hawley MD 01/06/2025 1:45:23 PM CDT Procedure Note Reyes Hawley MD - 01/06/2025 Hemodialysis Access Duplex Report Patient Name: EMILY MAYNARD R : 1960 (64y 2m) Gender: F Study Date: 01/06/2025 08:46:25 AM Stamp Classifier: Celeste Whitaker Provider: REYES HAWLEY Provider: REYES HAWLEY PROCEDURES: Vascular Report: Color Duplex ultrasound with velocity measurements wasperformed of the left upper extremity access graft. INDICATIONS: Dialysis graft complication and No palpable thrill. HISTORY: The patient had a previous vascular surgery on 01/2022 Thrombectomy left FAloop graft. COMPARISONS: The previous exam was completed on 12/27/22. ACCESS GRAFT: Vessel Velocity Lt Location Forearm AV loop graft Lt [place] Artery 58.00 cm/sec Lt Arterial Anast 24.00 cm/sec Lt Prx Graft 0.00 cm/sec Lt Prx-Mid Graft 0.00 cm/sec Lt Mid Graft 0.00 cm/sec Lt Mid-Dist Graft 0.00 cm/sec Lt Dst Graft 0.00 cm/sec Lt Venous Anast 0.00 cm/sec Lt [place] Vein 0.00 cm/sec FINDINGS: Study Quality: The study quality is adequate. Left: Basilic vein occluded. AX vein 14 cm/sec, 13 cm/sec. SCV 20 cm/sec,19 cm/sec. CONCLUSIONS: 1. The AV graft is occluded. Electronically Signed By: Reyes Hawley MD 01/06/2025 1:45:23 PM CDT us Reyes Hawley MD IM US PROCEDURES Final Re sult * (ABNORMAL) Lipid panel (04/13/2023 10:17 AM CDT) Cholesterol 142 30 - 199 mg/dL [facility] Comment: Sample investigated and found to be analytically accurate. If results do not match clinical presentation, improper collection (e.g., IV fluid contamination, improper tube type, mislabel) should be considered and re-collection recommen Interpretive Data Ages < or = 19 years Acceptable: <170 mg/dL Borderline high: 170-199 mg/dL High: >or= 200 mg/dL Ages > or = 20 years Desirable: <200 mg/dL Borderline high: 200-239 mg/dL High: >or= 240 mg/dL Literature References: 1. Expert Panel on Integrated Guidelines for Cardiovascular Health and Risk Reduction in Children and Adolescents. Pediatrics 2011;128:S213 2. NCEP Expert Panel. Circulation 2004;110:227 Current Interpretive Data was last revised on 2018. Triglycerides 172(H) <=149 mg/dL [facility] Comment: Sample investigated and found to be analytically accurate. If results do not match clinical presentation, improper collection (e.g., IV fluid contamination, improper tube type, mislabel) should be considered and re-collection recommen Interpretive Data Ages < or = 9 years Acceptable: <75 mg/dL Borderline high: 75-99 mg/dL High: >or= 100 mg/dL Ages 10 to 20 years Acceptable: <90 mg/dL Borderline high: 90-129 mg/dL High: >or= 130 mg/dL Ages > or = 20 years Desirable: <150 mg/dL Borderline high: 150-199 mg/dL High: 200-499 mg/dL Very high: >or= 499 mg/dL Literature References: 1. Expert Panel on Integrated Guidelines for Cardiovascular Health and Risk Reduction in Children and Adolescents. Pediatrics 2011;128:S213 2. NCEP Expert Panel. Circulation 2004;110:227 Current Interpretive Data was last revised on 2018. HDL 42 >=40 mg/dL [facility] Comment: Sample investigated and found to be analytically accurate. If results do not match clinical presentation, improper collection (e.g., IV fluid contamination, improper tube type, mislabel) should be considered and re-collection recommen Interpretive Data Ages < or = 19 years Acceptable: >45 mg/dL Borderline low: 40-45 mg/dL Low: <40 mg/dL Ages > or = 20 years Desirable: >or= 60 mg/dL Low: <40 mg/dL Literature References: 1. Expert Panel on Integrated Guidelines for Cardiovascular Health and Risk Reduction in Children and Adolescents. Pediatrics 2011;128:S213 2. NCEP Expert Panel. Circulation 2004;110:227 Current Interpretive Data was last revised on 2018. LDL, calculated 66 <=129 mg/dL [facility] Comment: Sample investigated and found to be analytically accurate. If results do not match clinical presentation, improper collection (e.g., IV fluid contamination, improper tube type, mislabel) should be considered and re-collection recommen Interpretive Data Ages < or = 19 years Acceptable: <110 mg/dL Borderline high: 110-129 mg/dL High: >or= 130 mg/dL Ages > or = 20 years Optimal: <100 mg/dL Near optimal: 100-129 mg/dL Borderline high: 130-159 mg/dL High: >160 mg/dL Literature References: 1. Expert Panel on Integrated Guidelines for Cardiovascular Health and Risk Reduction in Children and Adolescents. Pediatrics 2011;128:S213 2. NCEP Expert Panel. Circulation 2004;110:227 Current Interpretive Data was last revised on 2018. Non-HDL Cholesterol 100 mg/dL [facility] Comment: Sample investigated and found to be analytically accurate. If results do not match clinical presentation, improper collection (e.g., IV fluid contamination, improper tube type, mislabel) should be considered and re-collection recommen Interpretive Data Ages < or = 19 years Acceptable: <120 mg/dL Borderline high: 120-144 mg/dL High: >145 mg/dL Ages > or = 20 years When triglycerides are >200 mg/dL, Non-HDL cholesterol is a secondary target of therapy with treatment goals that are 30 mg/dL greater than the LDL cholesterol target. Literature References: 1. Expert Panel on Integrated Guidelines for Cardiovascular Health and Risk Reduction in Children and Adolescents. Pediatrics 2011;128:S213 2. NCEP Expert Panel. Circulation 2004;110:227 Current Interpretive Data was last revised on 2018. Chol/HDL ratio 3 [facility] Comment:Sample investigated and found to be analytically accurate. If results do not match clinical presentation, improper collection (e.g., IV fluid contamination, improper tube type, mislabel) should be considered and re-collection recommen Blood 04/13/2023 10:1 7 AM CDT 04/13/2023 10:37 AM CDT Narrative [facility] - 04/13/2023 1:03 PM CDT This lab is being obtained as part of a Kidney transplant evaluation, is time sensitive, and should only be drawn during the evaluation visit at [address] Lab[address] Damaso Franklin MD LAB BLOOD ORDERABLES Final R esult [facility] Department [place] [address] * Hepatitis C antibody (04/13/2023 10:16 AM CDT) Hep C Ab Nonreactive Nonreactive [facility] Comment:Antibodies to HCV no t detected. Does NOT exclude the possibility of recent exposure to HCV. Current interpretive data was last revised on 22 Blood 04/13/2023 10:1 6 AM CDT 04/13/2023 10:36 AM CDT Narrative [facility] - 04/13/2023 1:02 PM CDT This lab is being obtained as part of a Kidney transplant evaluation, is time sensitive, and should only be drawn during the evaluation visit at [address] Lab[address] Damaso Franklin MD LAB MICROBIOLOGY - GENERAL O RDERABLES Edited Result - Final [facility] Department [place] [address] * Occult blood, fecal non neoplasm screening (04/30/2018 4:05 AM CDT) Stool Occult Blood NEGATIVE NEGATIVE 04/30/2018 4:05 AM CDT 04/30/2018 4:44 AM CDT Narrative [facility] HISTORICAL RESULTS - 04/30/2018 4:48 AM CDT Collected By rs us Julia Eduardo NP LAB BODY FLUIDS AND S TOOLS ORDERABLES Final Result [facility] HISTORICAL RESULTS from Last 3 Months or Most Recently Relevant to Health Maintenance
--- OUTSIDE RECORDS SUMMARY | 2025-03-10 07:38 | XMS_ITS | Referral Summary ---
Author Organization [facility] Address [address] [place] [address] Care Team Providers Care Commercial Energy Auditor Name Role Phone Reyes Motley DO Primary Care Prov ider Edgardo Luong MD Unavailable [phone] Reyes Freed MD Unavailable [phone] Nettie Etienne MD Unavailable [phone] Encounters Date Type Department Care Team Description 03/03/2025 Telephone [facility] Pulmonary [address] [place] [address] Ann Miranda MA Testing Prior to Appointment. 02/12/2025 Documentation [facility] Vascular and Vein Surgery [address] [place] [address] [address] [place] [address] Amira Shetty NP 01/30/2025 2:15 PM CDT Office Visit [facility] Vascular and Vein Surgery [address] [place] [address] [address] [place] [address] Amira Shetty NP Other specified complication of vascular prosthetic devices, implants and grafts, initial encounter (Primary Dx) 01/30/2025 1:30 PM CDT - 01/30/2025 11:59 PM CDT Hospital Encounter [facility] Medical Office Building 2 Vascular [address] [address] ESRD (end stage renal disease) on dialysis (HCC); Other specified complication of vascular prosthetic devices, implants and grafts, initial encounter Discharge Disposition: Discharge to home or self care 01/20/2025 2:17 PM CDT - 01/24/2025 5:02 PM CDT Hospital Encounter [address] [address] Shen Harris MD Shimotani, Dorian Genki, DO Winston, Denver Poon MD Altered mental status, unspecified altered mental status type (Primary Dx) Discharge Disposition: Discharge to home or self care 01/07/2025 10:00 AM CDT - 01/07/2025 12:00 PM CDT Surgery [facility] OR [address] [place] [address] Reyes Freed MD THROMBECTOMY LEFT UPPER EXTREMITY ARTERIOVENOUS GRAFT, BALLOON ANGIOPLASTY AND STENTING OF LEFT BASILIC VEIN 01/07/2025 11:10 AM CDT Anesthesia Event [facility] OR [address] [place] [address] José Parham MD Taylor-White, Carlotta A., NP 01/07/2025 8:41 AM CDT - 01/07/2025 2:33 PM CDT Hospital Encounter [facility] OR [address] [place] [address] Reyes Freed MD ESRD (end stage renal disease) on dialysis (HCC) (Primary Dx) Discharge Disposition: Discharge to home or self care 01/06/2025 8:40 AM CDT - 01/06/2025 11:59 PM CDT Hospital Encounter [facility] Dialysis Access Center at [facility] [address] [address] Secondary hypertension (Primary Dx); Mixed hyperlipidemia; End stage renal disease (HCC); ESRD (end stage renal disease) on dialysis (HCC); Other specified complication of vascular prosthetic devices, implants and grafts, initial encounter Discharge Disposition: Discharge to home or self care 01/06/2025 8:39 AM CDT - 01/06/2025 11:59 PM CDT Hospital Encounter [facility] Medical Office Building 2 Vascular [address] [facility] [address] [place] [address] Dependence on renal dialysis; End stage renal disease (HCC); Other specified complication of vascular prosthetic devices, implants and grafts, initial encounter Discharge Disposition: Discharge to home or self care 01/06/2025 Orders Only [facility] at [facility] [address] [facility] [address] [place] [address] Reyes Freed MD Dependence on renal dialysis (Primary Dx); End stage renal disease (HCC); Other specified complication of vascular prosthetic devices, implants and grafts, initial encounter 12/12/2024 11:00 AM CDT Office Visit [facility] [place] [address] [facility] [address] [place] [address] Cody Camp MD Cough, unspecified type (Primary Dx); Recurrent sinusitis; Primary hypertension; Smoking greater than 10 pack years; Gastroesophageal reflux disease without esophagitis 12/09/2024 Telephone [place] [address] [facility] [address] [place] [address] Cody Camp MD Cough from Last 3 Months Allergies Active Allergy Reactions Criticality Noted Date [...] Low 02/06/2019 04/29/2020 ok to give berny HUNYH/ Teressa PanD Trimethoprim Other (See comments) Low [...] (01/27/2022): Added automatically from request for surgery [id number] Assessment & Plan (01/06/2025 10:11 AM CDT): End-stage renal disease on dialysis through a right forearm loop graft which is now thrombosed was dialyzed last week without any issues. She has consistently lost to follow-up. Presented to dialysis today with a loss of bruit and thrill. She presented to the [facility] dialysis access center to confirm suspicion of thrombosed graft. Co potassium is 4.1. She will be scheduled for thrombectomy tomorrow with Dr. Freed. Discussed the procedure with the patient answered [...] noted throughout AV graft. Plan: Sutures and lizandro removed from incision sites. Patient to follow-up [...] in anticipation of starting hemodialysis on 01/03/2022. Lizandro and sutures are intact with no concern [...] (11/15/2021): Added automatically from request for surgery [id number] Cerebrovascular accident (CVA) 09/23/2021 Iron deficiency anemia [...] 0 Assessment & Plan (08/30/2021 1:47 PM MACHINE ATTENDANT): Patient has chronic kidney disease not yet requiring hemodialysis. She is not an AV fistula candidate and would require non dominant left arm AV graft. The procedures indications and risks were thoroughly explained to the patient. Her questions were answered she understands and agrees to proceed. Will hold on this procedure until closer to hemodialysis in coordination with her coal weigher. Benign hypertensive kidney d isease with chronic [...] hernias. Assessment & Plan (08/16/2019 9:45 AM MACHINE ATTENDANT): Admitted with SBO confirmed by OSH CT [...] course Assessment & Plan (08/16/2019 9:46 AM MACHINE ATTENDANT): UA with nitrates and esterase. -IV Ceftriaxone [...] follow with her primary care physician and coal weigher for the diabetes and CKD. I will obtain a copy of her last lab results. Of note, if her creatinine has remained elevated she should likely not remain on the metformin. Assessment & Plan (08/16/2019 9:46 AM MACHINE ATTENDANT): Holding home metformin and glyburide MDSSI started. HA1c 8.2 She will resume home regimen at discharge. Hyperlipemia 02/12/2019 Assessment & Plan (01/06/2025 10:04 AM CDT): Continue Lipitor Assessment & Plan (05/27/2023 12:49 PM CDT): Hold home atorvastatin while NPO 05/27: Resume upon discharge. Assessment & Plan (12/27/2022 1:31 PM CDT): Continue Lipitor Assessment & Plan (08/30/2021 1:45 PM MACHINE ATTENDANT): Hyperlipidemia chronic and controlled. Continue Lipitor Chronic edema 11/21/2018 Hemiparesis affecting right side as late effect of stroke 06/10/2018 Hypertension 06/10/2018 Assessment & Plan (01/06/2025 10:04 AM CDT): Continue amlodipine, hydralazine Assessment & Plan (05/23/2023 9:49 AM CDT): See Diastolic HFpEF for management Assessment & Plan (12/27/2022 1:30 PM CDT): Continue amlodipine, Coreg, and hydralazine. Assessment & Plan (08/30/2021 1:44 PM MACHINE ATTENDANT): Hypertension chronic and controlled. Continue Norvasc Assessment [...] modifications. Assessment & Plan (08/16/2019 9:47 AM MACHINE ATTENDANT): IV labetalol while NPO, holding home medications. [...] materials from doctor or pharmacy Never 09/27/2023 [facility] Utilities Answer Date Recorded In the past 12 months has e [employer], gas, oil, or water [employer] threatened to shut off services in your [...] often do you attend chur ch or anglican services? Patient unable to answer 01/23/2025 Do you belong to any clubs o r organizations such as religious groups, unions, fraternal or athletic groups, or [...] place to sleep or slept in a detention (including now)? No 04/21/2023 Housing Stability Vital Sign Answer Ole e Recorded In the last 12 months, was t here a time when you were not able to pay the mortgage or rent on time? Patient unable to answer 01/23/2025 Number of Times Moved in the Last Year Not on fi le 01/23/2025 At any time in the past 12 [facility], were you homeless or living in a detention (including now)? Patient unable to answer 01/23/2025 Personal Safety Answer Date Recorded Have you ever been in or are you currently in a harmful physical or emotional relationship or is someone making you feel afraid or unsafe? Denies 01/20/2025 Comments No Sex and Gender Information Value Date Recorded Sex Assigned at Not on file Legal Sex Female 6:42 AM MACHINE ATTENDANT Gender Identity Not on file Sexual Orientation [...] Mass Index 40.97 01/30/2025 2:27 PM CDT Plan of Treatment Not on file Medical Devices Implanted Type Area Long Term Care Social Worker Device Identifier Shelf Expiration Date Model / Serial / Lot [employer] 4-7mm 45cm Stretch Peripheral Standard Site Director Graft Vascular [id number] - [id number] - [id number] Implanted:Qty: 1 on 01/03/2022 by Reyes Freed MD at [facility] Graft Left: Arm Wl [employer] 12/27/2026 [id number] / [id number] / Bard Peripheral Vascular Covera 7mm 8fr 100mm 80cm Cover Helical Strut Thumbwheel [id number] - [id number] Implanted:Qty: 1 on 01/07/2025 by Reyes Freed MD at [facility] Stent Left: Arm Bard Peripheral Vascular [id number] 09/05/2026 [id number] / / [id number] Bard Peripheral Vascular Covera 7mm 60mm 80cm Cover Helical Strut Thumbwheel Atraumatic [id number] - [id number] Implanted:Qty: 1 on 02/14/2022 by Reyes Freed MD at [facility] Left: Arm Bard Peripheral Vascular [id number] 06/22/2023 [id number] / / [id number] Bard Peripheral Vascular Covera 7mm 8fr 80mm 80cm Cover Helical Strut Thumbwheel [id number] - [id number] Implanted:Qty: 1 on 02/14/2022 by Reyes Freed MD at [facility] Left: Arm Bard Peripheral Vascular [id number] 06/11/2023 [id number] / / [id number] Procedures Procedure Name Priority Date/Time Associated Diagnosis [...] HOUR IP Routine 01/07/2025 11:54 AM CDT MT AN PROCEDURE PLACEHOLDER Routine 01/07/2025 11:25 AM CDT MT AN ELECTIVE SUPRAGLOTTIC AIRWAY Routine 01/07/2025 11:25 [...] or Most Recently Relevant to Health Maintenance Results * US Hemodialysis Access (01/30/2025 2:36 PM CDT) Anatomical Region Laterality Modality Vascular N/A Ultrasound 01/30/2025 1:52 PM CDT Narrative 01/31/2025 1:40 PM CDT Hemodialysis Access Duplex Report Patient Name: EMILY IBRAHIM R : 1960 (64y 3m) Gender: F Study Date: 01/30/2025 01:52:24 PM Crime Scene Investigator: Allyson Kolb Provider: REYES FREED Provider: REYES FREED PROCEDURES: Vascular Report: Color Duplex ultrasound with [...] A - BAS V LOOP AVG Lt [place] Artery 223.00 cm/sec Lt Arterial Anast 732/416 cm/sec Lt Prx Graft 200.00 ART LOOP cm/sec Lt Prx-Mid Graft 620/416 ART LOOP cm/sec Lt Mid-Dist Graft 111/55 ALMA LOOP cm/sec Lt Dst Graft 197/112 ALMA LOOP cm/sec Lt [place] Vein 93 AX V cm/sec LEFT STENT MEASUREMENTS: Vessel Velocity Location DIST AVG INTO BAS V Lt Stent Prx [place] PSV 149/77 cm/sec Lt Stent Prx Attachment PSV 128/71 cm/sec Lt Stent Prx PSV 123/76 cm/sec Lt Stent Mid PSV 134/74 cm/sec Lt Stent Dst PSV 147/88 cm/sec Lt Stent Dst Attachment PSV 141/85 cm/sec Lt Stent Dst [place] PSV 134/76 BAS V cm/sec Location 2 BAS V Lt Stent 2 Prx PSV 158/84 cm/sec Lt Stent 2 Mid PSV 145/83 cm/sec Lt Stent 2 Dst PSV 123/69 cm/sec Lt Stent 2 Dst [place] PSV 65 BRACH V cm/sec FINDINGS: Study [...] outflow were patent. Electronically Signed By: Osito Freed MD 01/31/2025 12:25:33 PM CDT Procedure Note Osito Freed MD - 01/31/2025 Hemodialysis Access Duplex Report Patient Name: EMILY IBRAHIM R : 1960 (64y 3m) Gender: F Study Date: 01/30/2025 01:52:24 PM Crime Scene Investigator: Allyson Kolb Provider: REYES FREED Ref Provider: REYES FREED PROCEDURES: Vascular Report: Color Duplex ultrasound with [...] A - BAS V LOOP AVG Lt [place] Artery 223.00 cm/sec Lt Arterial Anast 732/416 cm/sec Lt Prx Graft 200.00 ART LOOP cm/sec Lt Prx-Mid Graft 620/416 ART LOOP cm/sec Lt Mid-Dist Graft 111/55 ALMA LOOP cm/sec Lt Dst Graft 197/112 ALMA LOOP cm/sec Lt [place] Vein 93 AX V cm/sec LEFT STENT MEASUREMENTS: Vessel Velocity Location DIST AVG INTO BAS V Lt Stent Prx [place] PSV 149/77 cm/sec Lt Stent Prx Attachment PSV 128/71 cm/sec Lt Stent Prx PSV 123/76 cm/sec Lt Stent Mid PSV 134/74 cm/sec Lt Stent Dst PSV 147/88 cm/sec Lt Stent Dst Attachment PSV 141/85 cm/sec Lt Stent Dst [place] PSV 134/76 BAS V cm/sec Location 2 BAS V Lt Stent 2 Prx PSV 158/84 cm/sec Lt Stent 2 Mid PSV 145/83 cm/sec Lt Stent 2 Dst PSV 123/69 cm/sec Lt Stent 2 Dst [place] PSV 65 BRACH V cm/sec FINDINGS: Study [...] outflow were patent. Electronically Signed By: Osito Freed MD 01/31/2025 12:25:33 PM CDT Reyes Freed MD [facility] US PROCEDURES Final Re sult * (ABNORMAL) eGFR (01/24/2025 8:38 AM CDT) eGFR 4(L) >=60 mL/min/1. 73 m2 Comment: [...] LAB BLOOD ORDERABLES F inal Result [facility] [address] [facility] [place] [address] * (ABNORMAL) Differential, auto (01/24/2025 8:38 AM CDT) Neutrophil abs 3.44 1.50 - 6.50 K/cumm Imm gran abs 0.07 0.00 - 0.10 K/cumm [facility] Lymphocyte abs 2.18 0.80 - 3.30 K/cumm [facility] Monocyte abs 1.08(H) 0.20 - 0.80 K/cumm [facility] Eosinophil abs 0.18 0.00 - 0.50 K/cumm [facility] Basophil abs 0.08 0.00 - 0.10 K/cumm [facility] Neutrophil pct 48.9 % [facility] Comment: Interpretive Data Percent cell count reference ranges are not reported, since discordance with absolute values may lead to misinterpretation of CBC data. Current Interpretive Data was last revised on 2017. Imm gran pct 1.0 % [facility] Comment: Interpretive Data Percent cell count reference ranges are not reported, since discordance with absolute values may lead to misinterpretation of CBC data. Current Interpretive Data was last revised on 2017. Lymphocyte pct 31.0 % [facility] Comment: Interpretive Data Percent cell count reference ranges are not reported, since discordance with absolute values may lead to misinterpretation of CBC data. Current Interpretive Data was last revised on 2017. Monocyte pct 15.4 % [facility] Comment: Interpretive Data Percent cell count reference ranges are not reported, since discordance with absolute values may lead to misinterpretation of CBC data. Current Interpretive Data was last revised on 2017. Eosinophil pct 2.6 % [facility] Comment: Interpretive Data Percent cell count reference ranges are not reported, since discordance with absolute values may lead to misinterpretation of CBC data. Current Interpretive Data was last revised on 2017. Basophil pct 1.1 % [facility] Comment: Interpretive Data Percent cell count reference ranges are not reported, since discordance with absolute values may lead to misinterpretation of CBC data. Current Interpretive Data was last revised on 2017. Blood 01/24/2025 8:38 AM CDT 01/24/2025 8:54 AM CDT us Rafiq Solis MD LAB BLOOD ORDERABLES Final Result [place] [id number] [facility] [place] [address] * (ABNORMAL) CBC with auto differential (01/24/2025 8:38 AM CDT) WBC 7.03 3.80 - 9.90 K/cumm Hgb 9.6(L) 11.9 - 15.5 g/dL [facility] Hct 31.4(L) 35.6 - 45.5 % [facility] Plt 342 150 - 400 K/cumm [facility] MPV 10.3 9.1 - 12.3 fL [facility] RBC 3.57(L) 3.90 - 5.20 M/cumm [facility] MCV 88.0 81.3 - 96.4 fL [facility] MCH 26.9(L) 27.1 - 33.3 pg [facility] MCHC 30.6(L) 32.3 - 35.7 g/dL [facility] RDW CV 17.3(H) 11.1 - 14.9 % [facility] RDW SD 54.7(H) 35.7 - 48.1 fL [facility] NRBC abs 0.00 0.00 - 0.01 K/cumm [facility] Blood 01/24/2025 8:38 AM CDT 01/24/2025 8:54 AM CDT Rafiq Solis MD LAB BLOOD ORDERABLES Final Result Performing Organization Address City/[facility]/ZIP Co de Phone Number [address] Department [place] [address] * (ABNORMAL) Renal function panel (01/24/2025 8:38 AM CDT) Pathologist [facility] Sodium 136 135 - 145 mmol/L Potassium, pl 4.3 3.3 - 4.9 mmol/L [facility] Chloride 96(L) 97 - 110 mmol/L [facility] CO2 25 22 - 32 mmol/L [facility] Anion gap 15 2 - 15 mmol/L [facility] BUN 26(H) 6 - 25 mg/dL [facility] Creatinine 10.30(H) 0.60 - 1.10 mg/dL [facility] Glucose 104 70 - 199 mg/dL [facility] Comment: Interpretive Data Fasting glucose >/= [...] Calcium 10.4(H) 8.5 - 10.3 mg/dL [facility] Phosphorus, pl 7.1(H) 2.3 - 4.5 mg/dL [facility] Albumin 3.6 3.5 - 5.0 g/dL [facility] Blood 01/24/2025 8:38 AM CDT 01/24/2025 8:54 AM CDT Steve Wilson DO LAB BLOOD ORDERABLES F inal Result Performing Organization Address City/[facility]/ZIP Co de Phone Number [address] [place] [address] * POCT glucose (01/24/2025 8:16 AM CDT) Glucose, POC 111 70 - 199 mg/dL Glucose comment 1 RN/MD Notified SERGIO Blood 01/24/2025 8:16 AM CDT 01/24/2025 8:16 AM CDT Denver Cochran MD LAB POCT ORDERABLES - ANNIE CE Final Result Performing Organization Address [facility] Co de Phone Number SERGIO [address] [address] * POCT glucose (01/23/2025 7:58 PM CDT) Glucose, POC 104 70 - 199 mg/dL Glucose comment 1 RN/MD Notified [facility] Blood 01/23/2025 7:58 PM CDT 01/23/2025 7:58 PM CDT Denver Cochran MD LAB POCT ORDERABLES - ANNIE CE Final Result Performing Organization Address [facility] de Phone Number ELY[address] [address] * CT Abdomen Pelvis WO Contrast (01/23/2025 [...] Hung Candelario M.D. LB T: Report ID: [id number] Reading Location: [id number] Procedure Note Hung Candelario MD - 01/23/2025 [...] lesion in the left iliac bone is unchangedfrom 2019 and likely a bone island. Moderate thoracolumbar [...] Hung Candelario M.D. LB T: Report ID: [id number] Reading Location: [place] [address] us Denver Cochran MD IMG CT PROCEDURES Final Re sult * (ABNORMAL) eGFR (01/23/2025 7:09 AM CDT) [facility] eGFR 5(L) >=60 mL/min/1. 73 m2 Comment: [...] LAB BLOOD ORDERABLES F inal Result [facility] [address] [facility] Department [place] [address] * (ABNORMAL) Renal function panel (01/23/2025 7:09 AM CDT) [facility] Sodium 138 135 - 145 mmol/L Potassium, pl 4.0 3.3 - 4.9 mmol/L [facility] Chloride 98 97 - 110 mmol/L [facility] CO2 27 22 - 32 mmol/L [facility] Anion gap 13 2 - 15 mmol/L [facility] BUN 20 6 - 25 mg/dL [facility] Creatinine 8.34(H) 0.60 - 1.10 mg/dL [facility] Glucose 97 70 - 199 mg/dL [facility] Comment: Interpretive Data Fasting glucose >/= [...] Calcium 10.0 8.5 - 10.3 mg/dL [facility] Phosphorus, pl 6.1(H) 2.3 - 4.5 mg/dL [facility] Albumin 3.3(L) 3.5 - 5.0 g/dL [facility] Blood 01/23/2025 7:09 AM CDT 01/23/2025 7:48 AM CDT Steve Wilson DO LAB BLOOD ORDERABLES F inal Result Performing Organization Address City/[facility]/ZIP Co de Phone Number [address] [place] [address] * POCT glucose (01/23/2025 5:36 AM CDT) Glucose, POC 90 70 - 199 mg/dL Glucose comment 1 RN/MD Notified [facility] Blood 01/23/2025 5:36 AM CDT 01/23/2025 5:36 AM CDT Denver Cochran MD LAB POCT ORDERABLES - ANNIE CE Final Result Performing Organization Address City/[facility]/ZIP Co de Phone Number [address] [place] [address] * POCT glucose (01/22/2025 7:57 PM CDT) Glucose, POC 125 70 - 199 mg/dL Glucose comment 1 RN/MD Notified [facility] Blood 01/22/2025 7:57 PM CDT 01/22/2025 7:57 PM CDT Denver Cochran MD LAB POCT ORDERABLES - ANNIE CE Final Result Performing Organization Address [facility] de Phone Number SERGIO [address] [place] [address] * POCT glucose (01/22/2025 4:08 PM CDT) Glucose, POC 111 70 - 199 mg/dL Glucose comment 1 RN/MD Notified [facility] Blood 01/22/2025 4:08 PM CDT 01/22/2025 4:08 PM CDT Denver Cochran MD LAB POCT ORDERABLES - ANNIE CE Final Result Performing Organization Address [facility] de Phone Number [address] [place] [address] * POCT glucose (01/22/2025 12:09 PM CDT) Glucose, POC 91 70 - 199 mg/dL Glucose comment 1 RN/MD Notified SERG[facility] Blood 01/22/2025 12:0 9 PM CDT 01/22/2025 12:09 PM CDT Denver Cochran MD LAB POCT ORDERABLES - ANNIE CE Final Result Performing Organization Address [facility] de Phone Number ELY[address] [address] * POCT glucose (01/22/2025 7:28 AM CDT) Glucose, POC 154 70 - 199 mg/dL Glucose comment 1 RN/MD Notified SERGIO Blood 01/22/2025 7:28 AM CDT 01/22/2025 7:28 AM CDT Denver Cochran MD LAB POCT ORDERABLES - ANNIE CE Final Result Performing Organization Address [facility] Co de Phone Number SERGIO [address] [place] [address] * (ABNORMAL) eGFR (01/22/2025 6:12 AM CDT) Pathologist [facility] eGFR 4(L) >=60 mL/min/1. 73 m2 Comment: [...] ORDERABLES F inal Result Performing Organization Address City/[facility]/ZIP Co de Phone Number SERGIO [address] Department [place] [address] * (ABNORMAL) Differential, auto (01/22/2025 6:12 AM CDT) Pathologist [facility] Neutrophil abs 3.84 1.50 - 6.50 K/cumm Imm gran abs 0.10 0.00 - 0.10 K/cumm [facility] Lymphocyte abs 2.46 0.80 - 3.30 K/cumm [facility] Monocyte abs 1.55(H) 0.20 - 0.80 K/cumm [facility] Eosinophil abs 0.26 0.00 - 0.50 K/cumm [facility] Basophil abs 0.09 0.00 - 0.10 K/cumm [facility] Neutrophil pct 46.3 % [facility] Comment: Interpretive Data Percent cell count reference ranges are not reported, since discordance with absolute values may lead to misinterpretation of CBC data. Current Interpretive Data was last revised on 2017. Imm gran pct 1.2 % [facility] Comment: Interpretive Data Percent cell count reference ranges are not reported, since discordance with absolute values may lead to misinterpretation of CBC data. Current Interpretive Data was last revised on 2017. Lymphocyte pct 29.6 % [facility] Comment: Interpretive Data Percent cell count reference ranges are not reported, since discordance with absolute values may lead to misinterpretation of CBC data. Current Interpretive Data was last revised on 2017. Monocyte pct 18.7 % [facility] Comment: Interpretive Data Percent cell count reference ranges are not reported, since discordance with absolute values may lead to misinterpretation of CBC data. Current Interpretive Data was last revised on 2017. Eosinophil pct 3.1 % [facility] Comment: Interpretive Data Percent cell count reference ranges are not reported, since discordance with absolute values may lead to misinterpretation of CBC data. Current Interpretive Data was last revised on 2017. Basophil pct 1.1 % [facility] Comment: Interpretive Data Percent cell count reference ranges are not reported, since discordance with absolute values may lead to misinterpretation of CBC data. Current Interpretive Data was last revised on 2017. Blood 01/22/2025 6:12 AM CDT 01/22/2025 7:06 AM CDT us Rafiq Solis MD LAB BLOOD ORDERABLES Final Result [facility] [address] [facility] [place] [address] * (ABNORMAL) CBC with auto differential (01/22/2025 6:12 AM CDT) WBC 8.30 3.80 - 9.90 K/cumm Hgb 9.2(L) 11.9 - 15.5 g/dL [facility] Hct 29.9(L) 35.6 - 45.5 % [facility] Plt 336 150 - 400 K/cumm [facility] MPV 10.2 9.1 - 12.3 fL [facility] RBC 3.41(L) 3.90 - 5.20 M/cumm [facility] MCV 87.7 81.3 - 96.4 fL [facility] MCH 27.0(L) 27.1 - 33.3 pg [facility] MCHC 30.8(L) 32.3 - 35.7 g/dL [facility] RDW CV 16.8(H) 11.1 - 14.9 % [facility] RDW SD 54.3(H) 35.7 - 48.1 fL [facility] NRBC abs 0.02(H) 0.00 - 0.01 K/cumm [facility] Blood 01/22/2025 6:12 AM CDT 01/22/2025 7:06 AM CDT us Rafiq Solis MD LAB BLOOD ORDERABLES Final Result [facility] [address] [facility] [place] [address] * (ABNORMAL) Renal function panel (01/22/2025 6:12 AM CDT) [facility] Sodium 139 135 - 145 mmol/L Potassium, pl 4.3 3.3 - 4.9 mmol/L [facility] Chloride 98 97 - 110 mmol/L [facility] CO2 27 22 - 32 mmol/L [facility] Anion gap 14 2 - 15 mmol/L [facility] BUN 24 6 - 25 mg/dL [facility] Creatinine 9.45(H) 0.60 - 1.10 mg/dL [facility] Glucose 89 70 - 199 mg/dL [facility] Comment: Interpretive Data Fasting glucose >/= [...] Calcium 10.1 8.5 - 10.3 mg/dL [facility] Phosphorus, pl 6.4(H) 2.3 - 4.5 mg/dL [facility] Albumin 3.5 3.5 - 5.0 g/dL [facility] Blood 01/22/2025 6:12 AM CDT 01/22/2025 7:06 AM CDT Steve Wilson DO LAB BLOOD ORDERABLES F inal Result Performing Organization Address [facility] Co de Phone Number [address] [place] [address] * POCT glucose (01/22/2025 5:44 AM CDT) Glucose, POC 88 70 - 199 mg/dL Blood 01/22/2025 5:44 AM CDT 01/22/2025 5:44 AM CDT Denver Cochran MD LAB POCT ORDERABLES - ANNIE CE Final Result Performing Organization Address [facility] Co de Phone Number [address] [place] [address] * Hepatitis B surface antibody (immune status) Blood (01/21/2025 11:36 PM CDT) Pathologist [facility] HBsAb (immune status) Nonreactive Comment: Interpretive Data [...] GENERAL ORDERABLES Final Result Performing Organization Address [facility] Co de Phone Number [address] [address] * Hepatitis B Surface Antigen Blood (01/21/2025 11:36 PM CDT) HepBsAg Nonreactive Nonreactive Blood 01/21/2025 11:3 6 PM CDT 01/21/2025 11:40 PM CDT Rafiq Solis MD LAB MICROBIOLOGY - GENERAL ORDERABLES Final Result Performing Organization Address [facility] Co de Phone Number [address] [address] * POCT glucose (01/21/2025 8:24 PM CDT) Glucose, POC 150 70 - 199 mg/dL Blood 01/21/2025 8:24 PM CDT 01/21/2025 8:24 PM CDT Denver Cochran MD LAB POCT ORDERABLES - ANNIE CE Final Result Performing Organization Address [facility] Co de Phone Number [address] [address] * POCT glucose (01/21/2025 4:44 PM CDT) Glucose, POC 158 70 - 199 mg/dL Glucose comment 1 RN/MD Notified [facility] Blood 01/21/2025 4:44 PM CDT 01/21/2025 4:44 PM CDT Denver Cochran MD LAB POCT ORDERABLES - ANNIE CE Final Result Performing Organization Address [facility] Co de Phone Number [address] [place] [address] * POCT glucose (01/21/2025 11:39 AM CDT) Glucose, POC 122 70 - 199 mg/dL Glucose comment 1 RN/MD Notified [facility] Blood 01/21/2025 11:3 9 AM CDT 01/21/2025 11:39 AM CDT Denver Cochran MD LAB POCT ORDERABLES - ANNIE CE Final Result Performing Organization Address [facility] Co de Phone Number [address] [place] [address] * POCT glucose (01/21/2025 7:40 AM CDT) [facility] Glucose, POC 80 70 - 199 mg/dL Glucose comment 1 RN/MD Notified [facility] Blood 01/21/2025 7:40 AM CDT 01/21/2025 7:40 AM CDT Denver Cochran MD LAB POCT ORDERABLES - ANNIE CE Final Result Performing Organization Address [facility] Co de Phone Number [address] [place] [address] * (ABNORMAL) eGFR (01/21/2025 6:55 AM CDT) eGFR 5(L) >=60 mL/min/1. 73 [...] DO LAB BLOOD ORDERABLES F inal Result [place] [id number] [facility] Department [place] [address] * (ABNORMAL) Differential, auto (01/21/2025 6:55 AM CDT) Pathologist [facility] Neutrophil abs 3.58 1.50 - 6.50 K/cumm Imm gran abs 0.08 0.00 - 0.10 K/cumm [facility] Lymphocyte abs 2.06 0.80 - 3.30 K/cumm [facility] Monocyte abs 1.71(H) 0.20 - 0.80 K/cumm [facility] Eosinophil abs 0.24 0.00 - 0.50 K/cumm [facility] Basophil abs 0.07 0.00 - 0.10 K/cumm [facility] Neutrophil pct 46.3 % [facility] Comment: Interpretive Data Percent cell count reference ranges are not reported, since discordance with absolute values may lead to misinterpretation of CBC data. Current Interpretive Data was last revised on 2017. Imm gran pct 1.0 % [facility] Comment: Interpretive Data Percent cell count reference ranges are not reported, since discordance with absolute values may lead to misinterpretation of CBC data. Current Interpretive Data was last revised on 2017. Lymphocyte pct 26.6 % [facility] Comment: Interpretive Data Percent cell count reference ranges are not reported, since discordance with absolute values may lead to misinterpretation of CBC data. Current Interpretive Data was last revised on 2017. Monocyte pct 22.1 % [facility] Comment: Interpretive Data Percent cell count reference ranges are not reported, since discordance with absolute values may lead to misinterpretation of CBC data. Current Interpretive Data was last revised on 2017. Eosinophil pct 3.1 % [facility] Comment: Interpretive Data Percent cell count reference ranges are not reported, since discordance with absolute values may lead to misinterpretation of CBC data. Current Interpretive Data was last revised on 2017. Basophil pct 0.9 % [facility] Comment: Interpretive Data Percent cell count reference ranges are not reported, since discordance with absolute values may lead to misinterpretation of CBC data. Current Interpretive Data was last revised on 2017. Blood 01/21/2025 6:55 AM CDT 01/21/2025 6:58 AM CDT Steve Wilson DO LAB BLOOD ORDERABLES F inal Result [place] [id number] [facility] Department [place] [address] * (ABNORMAL) CBC with auto differential (01/21/2025 6:55 AM CDT) WBC 7.74 3.80 - 9.90 K/cumm Hgb 8.8(L) 11.9 - 15.5 g/dL [facility] Hct 28.5(L) 35.6 - 45.5 % [facility] Plt 305 150 - 400 K/cumm [facility] MPV 9.6 9.1 - 12.3 fL [facility] RBC 3.19(L) 3.90 - 5.20 M/cumm [facility] MCV 89.3 81.3 - 96.4 fL [facility] MCH 27.6 27.1 - 33.3 pg [facility] MCHC 30.9(L) 32.3 - 35.7 g/dL [facility] RDW CV 17.0(H) 11.1 - 14.9 % [facility] RDW SD 55.4(H) 35.7 - 48.1 fL [facility] NRBC abs 0.00 0.00 - 0.01 K/cumm [facility] Blood 01/21/2025 6:55 AM CDT 01/21/2025 6:58 AM CDT Steve Wilson DO LAB BLOOD ORDERABLES F inal Result [facility] [address] [facility] Department [place] [address] * (ABNORMAL) Renal function panel (01/21/2025 6:55 AM CDT) Sodium 141 135 - 145 mmol/L Potassium, pl 4.1 3.3 - 4.9 mmol/L [facility] Chloride 101 97 - 110 mmol/L [facility] CO2 28 22 - 32 mmol/L [facility] Anion gap 12 2 - 15 mmol/L [facility] BUN 18 6 - 25 mg/dL [facility] Creatinine 7.68(H) 0.60 - 1.10 mg/dL [facility] Glucose 85 70 - 199 mg/dL [facility] Comment: Interpretive Data Fasting glucose >/= [...] Calcium 9.8 8.5 - 10.3 mg/dL [facility] Phosphorus, pl 5.6(H) 2.3 - 4.5 mg/dL [facility] Albumin 3.2(L) 3.5 - 5.0 g/dL [facility] Blood 01/21/2025 6:55 AM CDT 01/21/2025 6:58 AM CDT Steve Wilson DO LAB BLOOD ORDERABLES F inal Result [facility] [address] [place] [address] * POCT glucose (01/20/2025 11:05 PM CDT) [facility] Glucose, POC 113 70 - 199 mg/dL Blood 01/20/2025 11:0 5 PM CDT 01/20/2025 11:05 PM CDT Steve Crocketteliceokhloe DO LAB POCT ORDERABLES - DEVICE Final Result Performing Organization Address [facility] Co de Phone Number [address] [address] * (ABNORMAL) Troponin T high-sensitivity 4-hour (01/20/2025 7:25 PM CDT) [facility] Trop T hs 135(H) <=14 ng/L Comment: Interpretive Data For further hscTnT resources including the diagnostic algorithm and an aid in interpretation, copy and paste this link: [email or web address]/show/[email or web address] Current Interpretive Data last revised 2020. Trop T hs pct delta 0 % [facility] Trop T hs interp Insignificant [facility] Blood 01/20/2025 7:25 PM CDT 01/20/2025 7:28 PM CDT Shen Harris MD LAB BLOOD ORDERABLE S Final Result Performing Organization Address City/[facility]/ZIP Co de Phone Number [address] [place], [place] [id number] * (ABNORMAL) Troponin T high-sensitivity 2-hour (01/20/2025 6:03 PM CDT) [facility] Trop T hs 138(H) <=14 ng/L Comment: Interpretive Data For further hscTnT resources including the diagnostic algorithm and an aid in interpretation, copy and paste this link: [email or web address].org/show/[email or web address] Current Interpretive Data last revised 2020. Trop T hs pct delta 2 % [facility] Trop T hs interp Insignificant [facility] Blood 01/20/2025 6:03 PM CDT 01/20/2025 6:06 PM CDT Shen Harris MD LAB BLOOD ORDERABLE S Final Result Performing Organization Address [facility] Co de Phone Number [address] [place] [address] * (ABNORMAL) Urinalysis reflex to microscopic and culture Urine (01/20/2025 6:03 PM CDT) Color, ur Yellow Yellow Clarity, ur Cloudy(A) Clear [facility] Specific gravity, ur 1.014 1.003 - 1.030 [facility] pH, urine 8.0 [facility] Comment: Interpretive Data U rine pH is affected by diet, medications, systemic acid-base disturbances, and renal tubular function. pH may affect urinary stone formation. For example, urine pH below 6.0 may help reduce the tendency for calcium phosphate stones and pH greater than 6.0 may reduce the tendency for uric acid stone formation. Source: [facility] Current Interpretive Data was last revised on 2017 Protein, ur ql 2+(A) Negative [facility] Glucose, ur ql 1+(A) Negative [facility] Ketones, ur Negative Negative [facility] Bilirubin, ur Negative Negative [facility] Blood, ur Negative Negative [facility] Urobilinogen, ur <2.0 <2.0 mg/dL [facility] Nitrite, ur Negative Negative [facility] Leukocyte esterase, ur 3+(A) Negative [facility] UA reflex comment Reflex to microscopic UA will be performed. [facility] Urine 01/20/2025 6:03 PM CDT 01/20/2025 6:06 PM CDT Shen Harris MD LAB MICROBIOLOGY - GENERAL ORDERABLES Final Result Performing Organization Address City/[facility]/ZIP Co de Phone Number [facility] [address] [facility] [place] [address] * (ABNORMAL) Urinalysis, microscopic only (01/20/2025 6:03 PM CDT) WBC, ur 6-10(A) 0 - 5 /HPF RBC, ur 0-2 0 - 2 /HPF [facility] Epithelial cells, squamous, ur 21-50(A) 0 - 5 /HPF [facility] Comment:Suggestive of contam ination. Consider recollection by clean catch. Hyaline casts, ur 1-5 0 - 10 /LPF [facility] Culture Reflex Comment Reflex conditions for urine culture (WBC >10) not met. [facility] Urine 01/20/2025 6:03 PM CDT 01/20/2025 6:06 PM CDT Shen Harris MD LAB URINE ORDERABLE S Final Result [facility] [address] [facility] [place] [address] * CT Head and Neck WO Contrast [...] of vertebral body height. No acute fracture. Efto-so-jzkfbrys multilevel degenerative endplate change. There is only [...] atherosclerotic change of cavernous carotids. There is jiyb-dq-kbsajscf atherosclerotic change of the right carotid bulb. [...] type change. No acute fracture cervical spine. Ujdc-el-eobmtkmm spondylosis cervical spine. Xeqa-hu-xkvlvhkh atherosclerotic change as above. Again seen is [...] Nir Last M.D. MJ T: Report ID: [id number] Reading Location: [place] [address] Procedure Note Nir Last MD - 01/20/2025 [...] of vertebral body height. No acute fracture. Uwwp-lg-pajwcvrh multilevel degenerative endplate change.There is only mild [...] atherosclerotic change of cavernous carotids. There is jgxg-kg-qrhsmtps atherosclerotic change of the right carotid bulb. Milder change on the left. Moderate atherosclerotic changeof right where distal innominate artery. Mild atherosclerotic change originof the left vertebral artery and more moderate of the left subclavian artery. OTHER: No other significant findings. IMPRESSION: No acute intracranial findings. There is moderate age-related atrophy and chronic small vessel ischemictype change. No acute fracture cervical spine. Yedt-ja-mmjxsqwy spondylosis cervical spine. Xlcl-ty-udmdqnnd atherosclerotic change as above. Again seen is [...] Nir Last M.D. MJ T: Report ID: [id number] Reading Location: [place] [address] us Shen Harris MD IMG CT PROCEDURES F inal Result * (ABNORMAL) Troponin T high-sensitivity series (baseline, 2hr, 4hr, 6hr) (01/20/2025 3:21 PM CDT) Pathologist [facility] Trop T hs 135(H) <=14 ng/L Comment: Interpretive Data For further hscTnT resources including the diagnostic algorithm and an aid in interpretation, copy and paste this link: https://nrl.testcatalog.org/show/hsTrop Current Interpretive Data last revised 2020. Blood 01/20/2025 3:21 PM CDT 01/20/2025 3:53 PM CDT us Shen Harris MD LAB BLOOD ORDERABLE S Final Result [facility] [address] [facility] [place] [address] * (ABNORMAL) eGFR (01/20/2025 3:21 PM CDT) Pathologist [facility] eGFR 7(L) >=60 mL/min/1. 73 m2 Comment: [...] LAB BLOOD ORDERABLE S Final Result [facility] [address] [facility] [place] [address] * (ABNORMAL) Comprehensive metabolic panel (01/20/2025 3:21 PM CDT) Sodium 140 135 - 145 mmol/L Potassium, pl 4.3 3.3 - 4.9 mmol/L [facility] Comment:Hemolyzed; Potassium value may be falsely elevated by as much as 1.0 mmol/L. Suggest redraw and reanalysis. Chloride 102 97 - 110 mmol/L [facility] CO2 22 22 - 32 mmol/L [facility] Anion gap 16(H) 2 - 15 mmol/L [facility] BUN 13 6 - 25 mg/dL [facility] Creatinine 5.86(H) 0.60 - 1.10 mg/dL [facility] Glucose 123 70 - 199 mg/dL [facility] Comment: Interpretive Data Fasting glucose >/= [...] Calcium 9.0 8.5 - 10.3 mg/dL [facility] Bilirubin, total 0.3 0.1 - 1.2 mg/dL [facility] Protein, pl 6.1(L) 6.5 - 8.5 g/dL [facility] Albumin 3.0(L) 3.5 - 5.0 g/dL [facility] Alk phos 111 40 - 130 Units/L [facility] ALT <5(L) 7 - 45 Units/L [facility] AST See Comment 10 [facility] Comment:Credited; Hemolyzed Specimen Blood 01/20/2025 3:21 PM CDT 01/20/2025 3:53 PM CDT us Shen Harris MD LAB BLOOD ORDERABLE S Final Result [place] [address] [facility] [place] [address] * (ABNORMAL) POC Blood Gas and Chemistries, Venous - (01/20/2025 2:54 PM CDT) pH,alma POC 7.47(H) 7.32 - 7.43 pCO2, alma POC 47 40 - 50 mmHg [facility] pO2,alma POC 41 mmHg [facility] Comment: Interpretive Data No reference range established. Current interpretive data was last revised 2020. HCO3, alma (Calc) POC 34(H) 20 - 30 mmol/L [facility] Base excess, alma POC 9 mmol/L [facility] Comment: Interpretive Data No reference range established. Current interpretive data was last revised 2020. Oxy Hgb, alma POC 68.5(L) 90.0 - 95.0 % [facility] Met Hgb, alma POC 0.7 0.0 - 1.9 % [facility] Carboxy Hgb, alma POC 1.2 0.0 - 2.9 % [facility] Hemoglobin, alma POC 9.8(L) 11.9 - 15.5 g/dL [facility] Sodium, alma POC 137 135 - 145 mmol/L [facility] Potassium, alma POC 4.5 3.3 - 4.9 mmol/L [facility] Comment: Interpretive Data This method is not able to assess for hemolysis, which may falsely increase potassium concentrations. If further testing is needed to evaluate this result, consider in-laboratory plasma potassium. Current Interpretive Data was last revised on 2022. Glucose, alma POC 153 70 - 199 mg/dL [facility] Ionized Calcium, alma POC 4.64 4.50 - 5.10 mg/dL [facility] Lactate, alma POC 2.2(H) 0.7 - 2.0 mmol/L [facility] Blood 01/20/2025 2:54 PM CDT 01/20/2025 2:54 PM CDT us Shen Harris MD LAB POCT ORDERABLES - DEVICE Final Result [facility] [address] [facility] [place] [address] * (ABNORMAL) eGFR (01/20/2025 2:26 PM CDT) [...] of Race in Diagnosing Kidney Disease, JASN 202). The CKD-EPI equation should not be used for patients with unstable renal function and has not been validated in children and those over 70. Current interpretive data was last reviewed 2021. Blood 01/20/2025 2:26 PM CDT 01/20/2025 2:29 PM CDT us Juana HUYNH LAB BLOOD ORDERABLES Final Resu lt [facility] [address] [facility] [place] [address] * (ABNORMAL) Differential, auto (01/20/2025 2:26 PM CDT) Neutrophil abs 5.19 1.50 - 6.50 K/cumm Imm gran abs 0.08 0.00 - 0.10 K/cumm [facility] Lymphocyte abs 1.82 0.80 - 3.30 K/cumm [facility] Monocyte abs 1.29(H) 0.20 - 0.80 K/cumm [facility] Eosinophil abs 0.19 0.00 - 0.50 K/cumm [facility] Basophil abs 0.07 0.00 - 0.10 K/cumm [facility] Neutrophil pct 60.1 % [facility] Comment: Interpretive Data Percent cell count reference ranges are not reported, since discordance with absolute values may lead to misinterpretation of CBC data. Current Interpretive Data was last revised on 2017. Imm gran pct 0.9 % [facility] Comment: Interpretive Data Percent cell count reference ranges are not reported, since discordance with absolute values may lead to misinterpretation of CBC data. Current Interpretive Data was last revised on 2017. Lymphocyte pct 21.1 % [facility] Comment: Interpretive Data Percent cell count reference ranges are not reported, since discordance with absolute values may lead to misinterpretation of CBC data. Current Interpretive Data was last revised on 2017. Monocyte pct 14.9 % [facility] Comment: Interpretive Data Percent cell count reference ranges are not reported, since discordance with absolute values may lead to misinterpretation of CBC data. Current Interpretive Data was last revised on 2017. Eosinophil pct 2.2 % [facility] Comment: Interpretive Data Percent cell count reference ranges are not reported, since discordance with absolute values may lead to misinterpretation of CBC data. Current Interpretive Data was last revised on 2017. Basophil pct 0.8 % [facility] Comment: Interpretive Data Percent cell count reference ranges are not reported, since discordance with absolute values may lead to misinterpretation of CBC data. Current Interpretive Data was last revised on 2017. Blood 01/20/2025 2:26 PM CDT 01/20/2025 2:29 PM CDT Juana HUYNH LAB BLOOD ORDERABLES Final Resu lt [facility] [place] [address] * (ABNORMAL) CBC with auto differential (01/20/2025 2:26 PM CDT) [facility] WBC 8.64 3.80 - 9.90 K/cumm Hgb 9.5(L) 11.9 - 15.5 g/dL [facility] Hct 30.9(L) 35.6 - 45.5 % [facility] Plt 349 150 - 400 K/cumm [facility] MPV 9.6 9.1 - 12.3 fL [facility] RBC 3.54(L) 3.90 - 5.20 M/cumm [facility] MCV 87.3 81.3 - 96.4 fL [facility] MCH 26.8(L) 27.1 - 33.3 pg [facility] MCHC 30.7(L) 32.3 - 35.7 g/dL [facility] RDW CV 17.0(H) 11.1 - 14.9 % [facility] RDW SD 53.7(H) 35.7 - 48.1 fL [facility] NRBC abs 0.00 0.00 - 0.01 K/cumm [facility] [facility] Blood Venous blood specimen / Unknown 01/20/2025 2:26 PM CDT 01/20/2025 2:29 PM CDT Narrative [facility] - 01/20/2025 2:39 PM CDT Potential Stroke Patient Shen Harris MD LAB BLOOD ORDERABLE S Final Result [facility] [address] [place] [address] * aPTT (01/20/2025 2:26 PM CDT) aPTT 27 22 - 37 sec Comment: Interpretive data aPTT test has not been evaluated for monitoring heparin therapy. The anti-Xa is the preferred test. Current interpretive data was last revised on 2019. Blood Venous blood specimen / Unknown 01/20/2025 2:26 PM CDT 01/20/2025 2:29 PM CDT Narrative [facility] - 01/20/2025 2:44 PM CDT Potential stroke patient. Shen Harris MD LAB BLOOD ORDERABLE S Final Result Performing Organization Address City/[facility]/ZIP Co de Phone Number [place] [id number] [facility] [place] [address] * (ABNORMAL) Protime-INR (01/20/2025 2:26 PM CDT) Pathologist [facility] PT 15.2(H) 12.0 - 14.6 sec Comment:Ref [...] LAB BLOOD ORDERABLE S Final Result [facility] [address] [facility] [place] [address] * (ABNORMAL) Comprehensive metabolic panel (01/20/2025 2:26 PM CDT) Pathologist [facility] Sodium 138 135 - 145 mmol/L Potassium, pl See Comment 3.3 - 4.9 [facility] Comment:Credited; Hemolyzed Specimen Chloride 99 97 - 110 mmol/L [facility] CO2 26 22 - 32 mmol/L [facility] Anion gap 13 2 - 15 mmol/L [facility] BUN 13 6 - 25 mg/dL [facility] Creatinine 5.78(H) 0.60 - 1.10 mg/dL [facility] Glucose 182 70 - 199 mg/dL [facility] Comment: Interpretive Data Fasting glucose >/= [...] Calcium 9.4 8.5 - 10.3 mg/dL [facility] Bilirubin, total 0.4 0.1 - 1.2 mg/dL [facility] Protein, pl 7.1 6.5 - 8.5 g/dL [facility] Albumin 3.4(L) 3.5 - 5.0 g/dL [facility] Alk phos 124 40 - 130 Units/L [facility] Comment:Hemolyzed; result ma y be falsely decreased ALT See Comment 7 45 [facility] Comment:Credited; Hemolyzed Specimen AST See Comment 10 45 [facility] Comment:Credited; Hemolyzed Specimen Blood Venous blood specimen / Unknown 01/20/2025 2:26 PM CDT 01/20/2025 2:29 PM CDT Narrative [facility] - 01/20/2025 3:11 PM CDT Potential Stroke Patient us Shen Harris MD LAB BLOOD ORDERABLE S Final Result [facility] [address] [facility] [place] [address] * ECG 12 lead (01/20/2025 2:18 PM CDT) Pathologist [facility] Ventricular Rate EKG/Min 89 BPM [facility] Atrial Rate 89 BPM [facility] MT-Interval (MSEC) 150 ms [facility] QRS-Interval (MSEC) 130 ms [facility] QT-Interval (MSEC) 402 ms [facility] QTc 489 ms [facility] P Morley 72 degrees [facility] R Morley -29 degrees [facility] T Morley 36 degrees [facility] Diagnosis Normal sinus rhythm Possible Left atrial enlargement Right bundle branch block Abnormal ECG When compared with ECG of 13-APR-2023 10:12, QRS axis Shifted left Confirmed by TALAT DRAKE M.D. ([id number]) on 01/21/2025 11:24:18 AM [facility] 01/20/2025 2:18 PM CDT 01/21/2025 11:24 AM CDT us Shen Harris MD ECG ORDERABLES Fin al Result [facility] * CT Stroke Head WO Contrast (01/20/2025 [...] signed by Wallace MYERS T: Report ID: [id number] Reading Location: [id number] Procedure Note Wallace Wadsworth MD - 01/20/2025 [...] signed by Wallace MYERS T: Report ID: [id number] Reading Location: [id number] Shen Harris MD IMG CT PROCEDURES F inal Result * (ABNORMAL) POCT glucose (01/20/2025 2:06 PM CDT) Glucose, POC 201(H) 70 - 199 mg/dL Glucose comment 1 RN/MD Notified [facility] Blood 01/20/2025 2:06 PM CDT 01/20/2025 2:06 PM CDT Notinfile Unknown LAB POCT ORDERABLES - DEVICE F inal Result Performing Organization Address [facility] de Phone Number [facility] [address] [place] [address] * POCT glucose (01/07/2025 12:19 PM CDT) Glucose, POC 123 70 - 199 mg/dL Blood 01/07/2025 12:1 9 PM CDT 01/07/2025 12:19 PM CDT Reyes Freed MD LAB POCT ORDERABLES - ANNIE CE Final Result Performing Organization Address [facility] de Phone Number [facility] [address] [address] * [place] Fluoroscopy < 1 Hour (01/07/2025 11:54 AM CDT) Narrative FRANCISCA_[email or web address] - 01/07/2025 11:55 AM CDT The images from this study are not interpreted by Radiology. Please refer to the physician's procedure / OR operative note. Reyes Freed MD IMG FLUOROSCOPY PROCEDURES Final Result Performing Organization Address [facility] de Phone Number [email or web address] * MT AN ELECTIVE SUPRAGLOTTIC AIRWAY, MT AN PROCEDURE PLACEHOLDER (01/07/2025 11:25 AM CDT) Narrative Julia Puckett CRNA - 01/07/2025 11:25 AM CDT Julia Puckett CRNA 01/07/2025 11:26 AM Airway Patient location: OR Urgency: elective Indications for airway management: anesthesia Difficult airway: no Staff: Supervising provider: José Parham MD Placed by: OVEN STRIPPER: Julia Puckett CRNA Emergent airway documentation: Risks [...] POC 31(L) 40 - 50 mmHg [facility] pO2,alma POC 48 mmHg [facility] Comment: Interpretive Data No reference range established. Current interpretive data was last revised 2020. HCO3, alma (Calc) POC 19(L) 20 - 30 mmol/L [facility] Base excess, alma POC -5 mmol/L [facility] Comment: Interpretive Data No reference range established. Current interpretive data was last revised 2020. Hemoglobin, alma POC 10.2(L) 11.9 - 15.5 g/dL [facility] Hematocrit, alma POC 30.0(L) 35.6 - 45.5 % [facility] Sodium, alma POC 138 135 - 145 mmol/L [facility] Potassium, alma POC 4.4 3.3 - 4.9 mmol/L [facility] Comment: Interpretive Data This method is not able to assess for hemolysis, which may falsely increase potassium concentrations. If further testing is needed to evaluate this result, consider in-laboratory plasma potassium. Current Interpretive Data was last revised on 2022. Glucose, alma POC 150 70 - 199 mg/dL [facility] Ionized Calcium, alma POC 4.90 4.50 - 5.10 mg/dL [facility] Blood 01/07/2025 9:57 AM CDT 01/07/2025 9:57 AM CDT Reyes Freed MD LAB POCT ORDERABLES - ANNIE CE Final Result [facility] [address] [facility] [place] [address] * (ABNORMAL) Hemoglobin A1c (01/07/2025 9:55 AM CDT) Hgb A1C 6.9(H) 4.0 - 5.6 % Estimated Average Glucose 151 mg/dL [facility] Comment: The ADA recommends reporting an estimated Average Glucose (eAG) with all Hemoglobin A1c results using the equation derived from a study of 507 normal and diabetic adults. Minority populations were underrepresented and children were not included. (Diabetes Care 31:4796-1538, 2008). The eAG is not equivalent to a fasting glucose. Blood 01/07/2025 9:55 AM CDT 01/07/2025 10:01 AM CDT Kathy Darby NP LAB BLOOD ORDERABLES Final Result Performing Organization Address City/State/ZIP Co [place] Phone Number [facility] [address] [facility] [place] [address] * (ABNORMAL) eGFR (01/06/2025 9:30 AM CDT) Pathologist [facility] eGFR 4(L) >=60 mL/min/1. 73 m2 Comment: [...] CDT 01/06/2025 9:37 AM CDT us Reyes Freed MD LAB BLOOD ORDERABLES Final Result [facility] [address] [facility] [place] [address] * (ABNORMAL) Differential, auto (01/06/2025 9:30 AM CDT) Neutrophil abs 6.43 1.50 - 6.50 K/cumm Imm gran abs 0.04 0.00 - 0.10 K/cumm [facility] Lymphocyte abs 1.53 0.80 - 3.30 K/cumm [facility] Monocyte abs 1.25(H) 0.20 - 0.80 K/cumm [facility] Eosinophil abs 0.26 0.00 - 0.50 K/cumm [facility] Basophil abs 0.06 0.00 - 0.10 K/cumm [facility] Neutrophil pct 67.2 % [facility] Comment: Interpretive Data Percent cell count reference ranges are not reported, since discordance with absolute values may lead to misinterpretation of CBC data. Current Interpretive Data was last revised on 2017. Imm gran pct 0.4 % [facility] Comment: Interpretive Data Percent cell count reference ranges are not reported, since discordance with absolute values may lead to misinterpretation of CBC data. Current Interpretive Data was last revised on 2017. Lymphocyte pct 16.0 % [facility] Comment: Interpretive Data Percent cell count reference ranges are not reported, since discordance with absolute values may lead to misinterpretation of CBC data. Current Interpretive Data was last revised on 2017. Monocyte pct 13.1 % [facility] Comment: Interpretive Data Percent cell count reference ranges are not reported, since discordance with absolute values may lead to misinterpretation of CBC data. Current Interpretive Data was last revised on 2017. Eosinophil pct 2.7 % [facility] Comment: Interpretive Data Percent cell count reference ranges are not reported, since discordance with absolute values may lead to misinterpretation of CBC data. Current Interpretive Data was last revised on 2017. Basophil pct 0.6 % [facility] Comment: Interpretive Data Percent cell count reference ranges are not reported, since discordance with absolute values may lead to misinterpretation of CBC data. Current Interpretive Data was last revised on 2017. Blood 01/06/2025 9:30 AM CDT 01/06/2025 9:37 AM CDT Reyes Freed MD LAB BLOOD ORDERABLES Final Result Performing Organization Address [facility] Co de Phone Number [facility] [address] [place] [address] * (ABNORMAL) CBC with auto differential (01/06/2025 9:30 AM CDT) WBC 9.57 3.80 - 9.90 K/cumm Hgb 9.9(L) 11.9 - 15.5 g/dL [facility] Hct 31.1(L) 35.6 - 45.5 % [facility] Plt 268 150 - 400 K/cumm [facility] MPV 10.2 9.1 - 12.3 fL [facility] RBC 3.54(L) 3.90 - 5.20 M/cumm [facility] MCV 87.9 81.3 - 96.4 fL [facility] MCH 28.0 27.1 - 33.3 pg [facility] MCHC 31.8(L) 32.3 - 35.7 g/dL [facility] RDW CV 17.4(H) 11.1 - 14.9 % [facility] RDW SD 56.5(H) 35.7 - 48.1 fL [facility] NRBC abs 0.00 0.00 - 0.01 K/cumm [facility] Blood 01/06/2025 9:30 AM CDT 01/06/2025 9:37 AM CDT Reyes Freed MD LAB BLOOD ORDERABLES Final Result Performing Organization Address [facility] Co de Phone Number [address] [place] [address] * (ABNORMAL) Basic metabolic panel (01/06/2025 9:30 AM CDT) Sodium 139 135 - 145 mmol/L Potassium, pl 4.1 3.3 - 4.9 mmol/L [facility] Chloride 104 97 - 110 mmol/L [facility] CO2 20(L) 22 - 32 mmol/L [facility] Anion gap 15 2 - 15 mmol/L [facility] BUN 47(H) 6 - 25 mg/dL [facility] Creatinine 9.55(H) 0.60 - 1.10 mg/dL [facility] Glucose 140 70 - 199 mg/dL [facility] Comment: Interpretive Data Fasting glucose >/= [...] Calcium 9.6 8.5 - 10.3 mg/dL [facility] Blood 01/06/2025 9:30 AM CDT 01/06/2025 9:37 AM CDT us Reyes Freed MD LAB BLOOD ORDERABLES Final Result Performing Organization Address City/State/[facility] Co de Phone Number [facility] [address] [facility] [place] [address] * US Hemodialysis Access (01/06/2025 9:18 AM CDT) Anatomical Region Laterality Modality Vascular N/A Ultrasound 01/06/2025 8:46 AM CDT Narrative 01/06/2025 2:55 PM CDT Hemodialysis Access Duplex Report Patient Name: EMILY IBRAHIM R : 1960 (64y 2m) Gender: F Study Date: 01/06/2025 08:46:25 AM Crime Scene Investigator: Celeste Whitaker Provider: REYES FREED Provider: REYES FREED PROCEDURES: Vascular Report: Color Duplex ultrasound with velocity measurements was performed of the left upper extremity access graft. INDICATIONS: Dialysis graft complication and No palpable thrill. HISTORY: The patient had a previous vascular surgery on 01/2022 Thrombectomy left FA loop graft. COMPARISONS: The previous exam was completed on 12/27/22. ACCESS GRAFT: Vessel Velocity Lt Location Forearm AV loop graft Lt [place] Artery 58.00 cm/sec Lt Arterial Anast 24.00 cm/sec Lt Prx Graft 0.00 cm/sec Lt Prx-Mid Graft 0.00 cm/sec Lt Mid Graft 0.00 cm/sec Lt Mid-Dist Graft 0.00 cm/sec Lt Dst Graft 0.00 cm/sec Lt Venous Anast 0.00 cm/sec Lt [place] Vein 0.00 cm/sec FINDINGS: Study Quality: The study quality is adequate. Left: Basilic vein occluded. AX vein 14 cm/sec, 13 cm/sec. SCV 20 cm/sec, 19 cm/sec. CONCLUSIONS: 1. The AV graft is occluded. Electronically Signed By: Reyes Freed MD 01/06/2025 1:45:23 PM CDT Procedure Note Reyes Freed MD - 01/06/2025 Hemodialysis Access Duplex Report Patient Name: EMILY IBRAHIM R : 1960 (64y 2m) Gender: F Study Date: 01/06/2025 08:46:25 AM Crime Scene Investigator: Celeste Whitaker Provider: REYES FREED Provider: REYES FREED PROCEDURES: Vascular Report: Color Duplex ultrasound with velocity measurements wasperformed of the left upper extremity access graft. INDICATIONS: Dialysis graft complication and No palpable thrill. HISTORY: The patient had a previous vascular surgery on 01/2022 Thrombectomy left FAloop graft. COMPARISONS: The previous exam was completed on 12/27/22. ACCESS GRAFT: Vessel Velocity Lt Location Forearm AV loop graft Lt [place] Artery 58.00 cm/sec Lt Arterial Anast 24.00 cm/sec Lt Prx Graft 0.00 cm/sec Lt Prx-Mid Graft 0.00 cm/sec Lt Mid Graft 0.00 cm/sec Lt Mid-Dist Graft 0.00 cm/sec Lt Dst Graft 0.00 cm/sec Lt Venous Anast 0.00 cm/sec Lt [place] Vein 0.00 cm/sec FINDINGS: Study Quality: The study quality is adequate. Left: Basilic vein occluded. AX vein 14 cm/sec, 13 cm/sec. SCV 20 cm/sec,19 cm/sec. CONCLUSIONS: 1. The AV graft is occluded. Electronically Signed By: Reyes Freed MD 01/06/2025 1:45:23 PM CDT us Reyes Freed MD IMG US PROCEDURES Final Re sult * (ABNORMAL) Lipid panel (04/13/2023 10:17 AM CDT) Cholesterol 142 30 - 199 mg/dL [facility] Comment: Sample investigated and found to be [...] on 2018. Triglycerides 172(H) <=149 mg/dL [facility] Comment: Sample investigated and found to be [...] revised on 2018. HDL 42 >=40 mg/dL [facility] Comment: Sample investigated and found to be [...] on 2018. LDL, calculated 66 <=129 mg/dL [facility] Comment: Sample investigated and found to [...] revised on 2018. Non-HDL Cholesterol 100 mg/dL [facility] Comment: Sample investigated and found to [...] last revised on 2018. Chol/HDL ratio 3 [facility] Comment:Sample investigated and found to be analytically accurate. If results do not match clinical presentation, improper collection (e.g., IV fluid contamination, improper tube type, mislabel) should be considered and re-collection recommen Blood 04/13/2023 10:1 7 AM CDT 04/13/2023 10:37 AM CDT Narrative [facility] - 04/13/2023 1:03 PM CDT This lab is being obtained as part of a Kidney transplant evaluation, is time sensitive, and should only be drawn during the evaluation visit at [address] Lab[address] Damaso Franklin MD LAB BLOOD ORDERABLES Final R esult Performing Organization Address [facility]/ZIP Co de Phone Number [facility] Department [place] [address] * Hepatitis C antibody (04/13/2023 10:16 AM CDT) [facility] Hep C Ab Nonreactive Nonreactive [facility] Comment:Antibodies to HCV no t detected. Does NOT exclude the possibility of recent exposure to HCV. Current interpretive data was last revised on 22 Blood 04/13/2023 10:1 6 AM CDT 04/13/2023 10:36 AM CDT [facility] 04/13/2023 1:02 PM CDT This lab is being obtained as part of a Kidney transplant evaluation, is time sensitive, and should only be drawn during the evaluation visit at [address] Damaso Franklin MD LAB MICROBIOLOGY - GENERAL O RDERABLES Edited Result - Final Performing Organization Address [facility]/ZIP Co de Phone Number [facility] Department [place] [address] * Occult blood, fecal non neoplasm screening (04/30/2018 4:05 AM CDT) Pathologist [facility] Stool Occult Blood NEGATIVE NEGATIVE 04/30/2018 4:48 AM CDT [facility] HISTORICAL RESULTS 04/30/2018 4:05 AM CDT 04/30/2018 4:44 AM CDT Narrative [facility]ISTOR[facility] RES[facility] - 04/30/2018 4:48 AM CDT Collected By rs Julia Eduardo NP LAB BODY FLUIDS AND S TOOLS ORDERABLES Final Result [facility] HISTORICAL RESULTS from Last 3 Months or Most Recently Relevant to Health Maintenance Insurance IDIN [facility]ICARE AD[facility] Address: [address] [address] [place] [address] IDIN [facility] MEDICARE AD[facility]ANTAGE [facility] Address: [address] [address] [place] [address] IDPA IDIN [employer] [facility] [place] TRANSPLANT [employer] MEDICARE RISK TRANSPLANT [employer] MED[employer]ARE RISK IDPA Advance Directives For more information, please contact: [phone] * Full Code (Latest Code Status on File) Date Activated Date Inactivated Comments 01/20/2025 10:43 PM 01/24/2025 9:02 PM * Full Code Date Activated Date Inactivated Comments 05/22/2023 10:32 PM 05/27/2023 6:26 PM * Full Code Date Activated Date Inactivated Comments 04/27/2020 11:37 PM 04/29/2020 8:01 PM * Full Code Date Activated Date Inactivated Comments 08/13/2019 2:24 PM 08/16/2019 3:12 PM * Full Code Date Activated Date Inactivated Comments 06/10/2018 9:58 PM 06/12/2018 6:57 PM Care Teams Commercial Energy Auditor Relationship Specialty Start Date End Date Reyes Motley DO PCP - General Family Medicine 03/08/21 Edgardo Luong MD Consulting Physician Nephrology 08/30/21 Reyes Freed MD [address] [place] [id number] [place] [address] Surgeon Vascular Surgery 01/03/22 Nettie Etienne MD [address] [place] [facility] [place] [address] Referring Physician Cardiology 02/02/22
--- OUTSIDE RECORDS SUMMARY | 2025-03-10 07:38 | XMS_ITS | Encounter Summary ---
Author Organization [facility] Address [place] [address] Care Team Providers Care Cardiovascular Invasive Specialist Name Role Phone Drew Cope MD Primary Care Provider [phone] Tomas Hopkins MD Unavailable [phone] Reyes Motley DO Primary Care Provide r Encounter Details Date Type Department Care Team (Late st Contact Info) Description 08/06/2019 Hospital Follow-up Call [facility] [place] [address] Terri Amin, Converting Technician Social History Tobacco Use Types Packs/Day Years Used Date Smoking Tobacco: Former Cigarettes 1 20 0 02/06/1994 - 02/06/2014 Smokeless Tobacco: Never Alcohol Use Standard Drinks/Week Comments No 0 (1 standard drink = 0.6 oz pur e alcohol) AUDIT-C Answer Date Recorded Frequency of Alcohol Consumption Never 02/06/2019 Average Number of Drinks Not on file 019 Frequency of Binge Drinking Not on file 01/26 Comments No Sex and Gender Information Value Date Recorded Sex Assigned at Female 09/10/2024 8:16 AM FERRY BOAT CAPTAIN Legal Sex Female 9:22 PM CDT Gender Identity Not on file Sexual Orientation Not on file documented as of this encounter Functional Status * RETIRED Are you deaf or do you have serious difficulty hearing Answer Date of Assessment Author Status No 08/05/2019 2:43 PM FERRY BOAT CAPTAIN Activ e * RETIRED Are you blind or do you have serious difficulty seeing, even when wearing glasses? Answer Date of Assessment Author Status Yes 08/05/2019 2:43 PM FERRY BOAT CAPTAIN Activ e * Do you have serious difficulty walking or climbing stairs? Answer Date of Assessment Author Status Yes 08/05/2019 2:43 PM Shahana Erwin RN Active * Do you have difficulty dressing or bathing? Answer Date of Assessment Author Status Yes 08/05/2019 2:43 PM Shahana Erwin RN Active * Because of a physical, mental, or emotional condition, do you have difficulty doing errands alone such as visiting a doctor's office or shopping? Answer Date of Assessment Author Status Yes 08/05/2019 2:43 PM Shahana Erwin RN Active documented as of this encounter Mental Status * Because of a physical, mental, or emotional condition, do you have serious difficulty concentrating, remembering, or making decisions? Answer Entry Date Author Status No 08/05/2019 2:43 PM Shahana Erwin RN Active documented in this encounter Plan of Treatment Upcoming Encounters Date Type Department Care Team (Late st Contact Info) Description 03/12/2025 9:20 AM CDT Office Visit [facility] - [address], [address] [place] [address] Conchis Lopez MD [address] [place] [address] documented as of this encounter Visit Diagnoses Not on filedocumented in this encounter Care Teams Cardiovascular Invasive Specialist Relationship Specialty Start Date End Date Drew Cope MD [address] [facility] [address] [place] [address] PCP - General INTERNAL MEDICINE 02/06/19 11/10/20 Reyes Motley DO [address] [place] [address] [phone] PCP - General FAMILY PRACTICE 11/11/20 Tomas Hopkins MD [facility]. [facility] [address] [place] [address] [place] [employer] Clipper CARDIOVASCULAR DISEASE 09/10/19 documented as of this encounter
--- OUTSIDE RECORDS SUMMARY | 2025-03-10 07:38 | XMS_ITS | Encounter Summary ---
Author Organization [facility] Address [address] [place] [address] Phone Care Team Providers Care Anthropology Faculty Member Name Role Phone Drew Cope MD Primary Care Provider [phone] Reyes Motley V. DO Primary Care Prov ider Reyes Motley V. DO Primary Care Prov ider Drew Cope MD Primary Care Provider [phone] Reyes Motley V. DO Primary Care Prov ider Edgardo Luong MD Unavailable [phone] Reyes Freed MD Unavailable [phone] Nettie Etienne MD Unavailable [phone] Encounter Details Date Type Department Care Team (Latest Contact Info) Description 12/27/2019 Orders Only [facility] Scanning, Provider Social History Tobacco Use Types Packs/Day Years Used Date Smoking Tobacco: Former Smokeless Tobacco: Never Alcohol Use Standard Drinks/Week Comments No 0 (1 standard drink = 0.6 oz pur e alcohol) PHQ-2 Answer Date Recorded PHQ-2 Score 0 04/19/2019 Comments No Sex and Gender Information Value Date Recorded Sex Assigned at Not on file Legal Sex Female 6:42 AM WRITER [employer]UC[employer] Gender Identity Not on file Sexual Orientation Not on file documented as of this encounter Progress Notes * Nettie Etienne MD - 12/27/2019 11:59 PM CDT Reviewed documented in this encounter Plan of Treatment Not on file documented as of this encounter Procedures Procedure Name Priority Date/Time Associated Diagnosis Comments SCAN - LABS 12/27/2019 documented in this encounter Results * SCAN - LABS (12/27/2019) us Provider Scanning Final Result documented in this encounter Visit Diagnoses Not on filedocumented in this encounter Additional Health Concerns Infection Onset Date Last Indicated Resolved Time COVID19 Comment:Pt provided documentation for a positive test result on 03/01/20. It is scanned in the media tab. Pt is asymptomatic for COVID Miri Mckeon 04/27/2020 04/27/2020 04/27/2020 04/27/2020 10:17 P M CDT COVID: Recovered Comment:Pt tested positive for COVID 03/01/20. Documentation scanned in the media tab. Pt is asymptomatic. Miri Mckeon 04/27/2020 04/27/2020 04/27/202007/29 3:05 AM WRITER PRODUCER COVID: Suspected 10/07/2024 10/07/2024 10/07/2024 5:03 AM WRITER PRODUCER Coronavirus, droplet 10/07/2024 10/07/2024 025 3:06 AM WRITER PRODUCER documented as of this encounter Care Teams Anthropology Faculty Member Relationship Specialty Start Date End Date Drew Cope MD [address] [place] [address] PCP - General 06/03/18 02/09/20 Reyes Motley DO [address] [place] [address] PCP - General Family Medicine 02/26/20 01/15/21 Reyes Motley DO [address] [facility] [address] [place] [address] PCP - General 02/10/20 02/25/20 Drew Cope MD [address] [place] [address] [address] PCP - General Internal Medicine 01/16/21 03/07/21 Reyes Motley DO [address] [place] [address] [address] PCP - General Family Medicine 03/08/21 Edgardo Luong MD [address] [place] [address] [address] Consulting Physician Nephrology 08/30/21 Reyes Freed MD [address] [place] [address] [address] Surgeon Vascular Surgery 01/03/22 Nettie Etienne MD [address] [place] [facility] [place] [address] Referring Physician Cardiology 02/02/22 documented as of this encounter
--- OUTSIDE RECORDS SUMMARY | 2025-03-10 07:38 | XMS_ITS | Clinical Summary ---
Author Organization [facility] Address [address] [place] [address] Care Team Providers Care Type Proof Reproducer Name Role Phone Reyes Motley DO Primary Care Prov ider Edgardo Luong MD Unavailable [phone] Reyes Hawley MD Unavailable [phone] Nettie Etienne MD Unavailable [phone] Allergies Active Allergy Reactions Criticality Noted Date [...] Low 02/06/2019 04/29/2020 ok to give berny Dumont PA/ Teressa PharmD Trimethoprim Other (See comments) Low 05/05/2020 Medications [...] (01/27/2022): Added automatically from request for surgery [id number] Assessment & Plan (01/06/2025 10:11 AM CDT): End-stage renal disease on dialysis through a right forearm loop graft which is now thrombosed was dialyzed last week without any issues. She has consistently lost to follow-up. Presented to dialysis today with a loss of bruit and thrill. She presented to the [facility] dialysis access center to confirm suspicion of [...] in anticipation of starting hemodialysis on 01/03/2022. Alpine and sutures are intact with no concern [...] (11/15/2021): Added automatically from request for surgery [id number] Cerebrovascular accident (CVA) 09/23/2021 Iron deficiency anemia [...] 0 Assessment & Plan (08/30/2021 1:47 PM INSULATION APPLICATOR): Patient has chronic kidney disease not yet requiring hemodialysis. She is not an AV fistula candidate and would require non dominant left arm AV graft. The procedures indications and risks were thoroughly explained to the patient. Her questions were answered she understands and agrees to proceed. Will hold on this procedure until closer to hemodialysis in coordination with her graduate nurse. Benign hypertensive kidney d isease with chronic [...] hernias. Assessment & Plan (08/16/2019 9:45 AM INSULATION APPLICATOR): Admitted with SBO confirmed by OSH CT [...] course Assessment & Plan (08/16/2019 9:46 AM INSULATION APPLICATOR): UA with nitrates and esterase. -IV Ceftriaxone [...] follow with her primary care physician and graduate nurse for the diabetes and CKD. I will obtain a copy of her last lab results. Of note, if her creatinine has remained elevated she should likely not remain on the metformin. Assessment & Plan (08/16/2019 9:46 AM INSULATION APPLICATOR): Holding home metformin and glyburide MDSSI started. HA1c 8.2 She will resume home regimen at discharge. Hyperlipemia 02/12/2019 Assessment & Plan (01/06/2025 10:04 AM CDT): Continue Lipitor Assessment & Plan (05/27/2023 12:49 PM CDT): Hold home atorvastatin while NPO 05/27: Resume upon discharge. Assessment & Plan (12/27/2022 1:31 PM CDT): Continue Lipitor Assessment & Plan (08/30/2021 1:45 PM INSULATION APPLICATOR): Hyperlipidemia chronic and controlled. Continue Lipitor Chronic edema 11/21/2018 Hemiparesis affecting right side as late effect of stroke 06/10/2018 Hypertension 06/10/2018 Assessment & Plan (01/06/2025 10:04 AM CDT): Continue amlodipine, hydralazine Assessment & Plan (05/23/2023 9:49 AM CDT): See Diastolic HFpEF for management Assessment & Plan (12/27/2022 1:30 PM CDT): Continue amlodipine, Coreg, and hydralazine. Assessment & Plan (08/30/2021 1:44 PM INSULATION APPLICATOR): Hypertension chronic and controlled. Continue Norvasc Assessment [...] modifications. Assessment & Plan (08/16/2019 9:47 AM INSULATION APPLICATOR): IV labetalol while NPO, holding home medications. [...] 09/28/2014 Peritoneal abscess 09/28/2014 Abdominal pain 09/19/2014 Encounters Date Type Department Care Team Description 03/03/2025 Telephone [facility] Pulmonary [address] [place] [address] Ann Miranda MA Testing Prior to Appointment. 02/12/[address] [facility] Vascular and Vein Surgery [address] [place] [address] [place] [phone] Amira Shetty NP 01/30/2025 2:15 PM CDT Office Visit [facility] Vascular and Vein Surgery [address] [place] [address] [address] [place] [address] Amira Shetty NP Other specified complication of vascular prosthetic devices, implants and grafts, initial encounter (Primary Dx) 01/30/2025 1:30 PM CDT - 01/30/2025 11:59 PM CDT Hospital Encounter [facility] Medical Office Building [address] [place] [address] [place] [phone] ESRD (end stage renal disease) on dialysis (HCC); Other specified complication of vascular prosthetic devices, implants and grafts, initial encounter Discharge Disposition: Discharge to home or self care 01/20/2025 2:17 PM CDT - 01/24/2025 5:02 PM CDT Hospital Encounter [facility] [address] [place] [address] Shen Harris MD Shimotani, DO Dimas Joyner, Denver Poon MD Altered mental status, unspecified altered mental status type (Primary Dx) Discharge Disposition: Discharge to home or self care 01/07/2025 11:10 AM CDT Anesthesia Event [facility] [place] [address] [place] [address] José Parham MD Taylor-White, Carlotta A., NP 01/07/2025 10:00 AM CDT - 01/07/2025 12:00 PM CDT Surgery [facility] [place] [address] [place] [address] Reyes Hawley MD THROMBECTOMY LEFT UPPER EXTREMITY ARTERIOVENOUS GRAFT, BALLOON ANGIOPLASTY AND STENTING OF LEFT BASILIC VEIN 01/07/2025 8:41 AM CDT - 01/07/2025 2:33 PM CDT Hospital Encounter [facility] [place] [address] [place] [address] Reyes Hawley MD ESRD (end stage renal disease) on dialysis (HCC) (Primary Dx) Discharge Disposition: Discharge to home or self care 01/06/2025 8:40 AM CDT - 01/06/2025 11:59 PM CDT Hospital Encounter [facility] D[facility] Access [facility] at [address] [address] Secondary hypertension (Primary Dx); Mixed hyperlipidemia; End stage renal disease (HCC); ESRD (end stage renal disease) on dialysis (HCC); Other specified complication of vascular prosthetic devices, implants and grafts, initial encounter Discharge Disposition: Discharge to home or self care 01/06/2025 8:39 AM CDT - 01/06/2025 11:59 PM CDT Hospital Encounter [facility] Medical Office Building 2 Vascular [address] [facility] [address] [place] [address] Dependence on renal dialysis; End stage renal disease (HCC); Other specified complication of vascular prosthetic devices, implants and grafts, initial encounter Discharge Disposition: Discharge to home or self care 01/06/2025 Orders Only [facility] D[facility] Access Center at [facility] [address] [facility] [address] [place] [address] Reyes Hawley MD Dependence on renal dialysis (Primary Dx); End stage renal disease (HCC); Other specified complication of vascular prosthetic devices, implants and grafts, initial encounter 12/12/2024 11:00 AM CDT Office Visit [facility] Pulmonary [address] [place] [address] Cody Camp MD Cough, unspecified type (Primary Dx); Recurrent sinusitis; Primary hypertension; Smoking greater than 10 pack years; Gastroesophageal reflux disease without esophagitis 12/09/[address] [place] [address] Cody Camp MD Cough from Last 3 Months Immunizations Immunization Administration Dates Next Due Hep B Vaccine 04/21/2023, 3,11/16/2022,10/14 Influenza, Quadrivalent, Rec ombinant, Egg Free, Preservative Free, Intramuscular 07/06/2020,08/08/2019 Influenza, Quadrivalent, Spl it, Preservative Free, Intramuscular 06/05/2018 Influenza, Unspecified 06/06/2022 Pneumococcal Polysaccharide PPV23 03/07/2022 Td, adsorbed 09/19/2014 Surgical History Surgery Date Site/Laterality Comments TONSILLECTOMY childhood TUBAL LIGATION 08/28/1983 - 08/27/1984 HYSTERECTOMY 08/28/2004 - 08/27/2005 VENTRAL HERNIA REPAIR 08/28/2014 - 08/27/2015 revision VENTRAL HERNIA REPAIR 08/28/2014 - 08/27/2015 Pt states had to have initial surgery revised. ARTERIOVENOUS GRAFT PLACEMENT 01/03/2022 Left LUE forearm loop AVG creation - Dr. Reyes Hawley ESOPHAGOGASTRODUODENOSCOPY 04/10/2019 Bilateral AV FISTULA REPAIR 02/14/2022 Left LUE AVG - thrombectomy, and angioplasty & stent basilic vein - Dr. Reyes Hawley AV FISTULA REPAIR 01/07/2025 Left LUE AVG - thrombectomy, and angioplasty & stent basilic vein - Dr. Reyes Hawley Medical History Medical History Date Comments Hypertension Hyperlipemia Diabetes mellitus ([facility]) H/O ventral hernia repair Right retinal detachment Arthritis Sciatica Lumbar herniated disc 1996 Bursitis Heart disease Hypothyroidism CALEB (obstructive sleep apnea) Overactive bladder Bowel obstruction ([facility]) 2018 Resolved with NG tube Incontinence in female GERD (gastroesophageal reflux disease) controlled with meds History of diabetes mellitus 2020 A1C % was normal, was taken off of all diabetic medications Stroke ([facility]) 2017 Right arm/hand w eakness after, was hospitalized for 30 days. Still has weakness in right hand. Stroke (cerebrum) ([facility]) 10/2020 No resid ual. Anemia LYDIA Awareness under anesthesia State s has awakened during surgery, and felt hysterectomy initial incision. Fear of general anesthetic Pt st reji is anxious about being put to sleep, does not want to be aware of induction. History of pyelonephritis 1999' Urinary tract infection States g ets UTI's after sexual activity. Acute renal failure patient stat es no history of HD CKD (chronic kidney disease) Sta ge 4 Walker as ambulation aid Teeth missing Personal history of fall 12/2021 impaired gatit fell to knees states patient no injury Family History Medical History Relation Name Comments Heart attack Father Diabetes Father's Sister Stroke Mother Relation Name Status Comments Father Father's Sister Mother Social History Tobacco Use Types Packs/Day Years [...] materials from doctor or pharmacy Never 09/27/2023 [facility] Utilities Answer Date Recorded In the past 12 months has th e electric, gas, oil, or water company threatened to shut off services in your [...] often do you attend chur ch or cheondoism services? Patient unable to answer 01/23/2025 Do you belong to any clubs o r organizations such as worship groups, unions, fraternal or athletic groups, or [...] place to sleep or slept in a senior living (including now)? No 04/21/2023 Housing Stability Vital Sign Answer Ole e Recorded In the last 12 months, was t here a time when you were not able to pay the mortgage or rent on time? Patient unable to answer 01/23/2025 Number of Times Moved in the Last Year Not on fi le 01/23/2025 At any time in the past 12 m [facility], were you homeless or living in a senior living (including now)? Patient unable to answer 01/23/2025 Personal Safety Answer Date Recorded Have you ever been in or are you currently in a harmful physical or emotional relationship or is someone making you feel afraid or unsafe? Denies 01/20/2025 Comments No Sex and Gender Information Value Date Recorded Sex Assigned at Not on file Legal Sex Female 6:42 AM INSULATION APPLICATOR Gender Identity Not on file Sexual Orientation Not on file Obstetrics History Last Filed Vital Signs Vital Sign Reading [...] 01/30/2025 2:27 PM CDT Plan of Treatment Health Maintenance Due Date Last Done Comments Albumin Creatinine Ratio, Urine 1960 Colon Cancer Screening-Colonoscopy 1960 Osteoporosis Screening-Bone Density Scan 1960 Dilated Eye Exam 1960 Foot Exam 1960 Zoster Vaccine (1 of 2) 2008 DTaP/Tdap/Td Vaccine (1 - Tdap) 09/20/2014 5 Pneumococcal vaccine 65+ (2 of 2 - PCV) 03/07/2023 03/07/2022 Well Visit 65+ 10/30/2023 Lipid Panel 04/13/2024 04/13/2023, 08/28, 09/24/2021, Additional history exists Depression Screening 04/20/2024 04/20/2023, 06/10/20 18 Covid-19 Vaccine (4 - 2023-2 5 season) 2024 09/04/2021, 03/03/2021, 01/29/2021 Breast Cancer Screening-Mammogram 05/13/2024 05/13/2023, 05/13/2023, 05/10/2021, Additional history exists Influenza Vaccine (#1) 2025 , 07/06/2020, 08/08/2019, Additional history exists Hemoglobin A1C 07/10/2025 01/07/2025, 02/0 03/2024, 04/13/2023, Additional history exists Fall Risk Assessment 01/24/2026 01/24/2025 eGFR 01/24/2026 01/24/2025, 12/27, 01/22/2025, Additional history exists Colon Cancer Screening-FIT Discontinued 04/30/2018 Hepatitis C Screening Completed 04/13/2023 Hepatitis B Screening Completed 01/21/2025 , 04/21/2023, 12/19/2022, Additional history exists Medical Devices Implanted Type Area Die Mounter Device Identifier Shelf Expiration Date Model / Serial / Lot [employer] 4-7mm 45cm Stretch Peripheral Standard Production Painter Graft Vascular [id number] - [id number] - [id number] Implanted:Qty: 1 on 01/03/2022 by Reyes Hawley MD at [facility] Graft Left: Arm [employer] 12/27/2026 [id number] / [id number] / Bard Peripheral Vascular Covera 7mm 8fr 100mm 80cm Cover Helical Strut Thumbwheel [id number] - [id number] Implanted:Qty: 1 on 01/07/2025 by Reyes Hawley MD at [facility] Stent Left: Arm Bard Peripheral Vascular [id number] 09/05/2026 [id number] / / [id number] Bard Peripheral Vascular Covera 7mm 60mm 80cm Cover Helical Strut Thumbwheel Atraumatic [id number] - [id number] Implanted:Qty: 1 on 02/14/2022 by Reyes Hawley MD at [facility] Left: Arm Bard Peripheral Vascular [id number] 06/22/2023 [id number] / / [id number] Bard Peripheral Vascular Covera 7mm 8fr 80mm 80cm Cover Helical Strut Thumbwheel [id number] - [id number] Implanted:Qty: 1 on 02/14/2022 by Reyes Hawley MD at [facility] Left: Arm Bard Peripheral Vascular [id number] 06/11/2023 [id number] / / [id number] Procedures Procedure Name Priority Date/Time Associated Diagnosis [...] HOUR IP Routine 01/07/2025 11:54 AM CDT ID AN PROCEDURE PLACEHOLDER Routine 01/07/2025 11:25 AM CDT ID AN ELECTIVE SUPRAGLOTTIC AIRWAY Routine 01/07/2025 11:25 [...] AUTO DIFFERENTIAL STAT 01/06/2025 9:30 AM CDT US HEMODIALYSIS ACCESS Schedule Routine, Read Routine [...] Hemodialysis Access Duplex Report Patient Name: EMILY IBRAHIMLaura : 1960 (64y 3m) Gender: F Study Date: 01/30/2025 01:52:24 PM Controls Designer: Allyson Kolb Provider: REYES HAWLEY Ref Provider: [...] A - BAS V LOOP AVG Lt Northway Artery 223.00 cm/sec Lt Arterial Anast 732/416 cm/sec Lt Prx Graft 200.00 ART LOOP cm/sec Lt Prx-Mid Graft 620/416 ART LOOP cm/sec Lt Mid-Dist Graft 111/55 ALMA LOOP cm/sec Lt Dst Graft 197/112 ALMA LOOP cm/sec Lt Northway Vein 93 AX V cm/sec LEFT STENT MEASUREMENTS: Vessel Velocity Location DIST AVG INTO BAS V Lt Stent Prx Northway PSV 149/77 cm/sec Lt Stent Prx Attachment PSV 128/71 cm/sec Lt Stent Prx PSV 123/76 cm/sec Lt Stent Mid PSV 134/74 cm/sec Lt Stent Dst PSV 147/88 cm/sec Lt Stent Dst Attachment PSV 141/85 cm/sec Lt Stent Dst Northway PSV 134/76 BAS V cm/sec Location 2 BAS V Lt Stent 2 Prx PSV 158/84 cm/sec Lt Stent 2 Mid PSV 145/83 cm/sec Lt Stent 2 Dst PSV 123/69 cm/sec Lt Stent 2 Dst Northway PSV 65 BRACH V cm/sec FINDINGS: Study [...] Gender: F Study Date: 01/30/2025 01:52:24 PM Controls Designer: Allyson Kolb Provider: REYES HAWLEY Ref Provider: [...] A - BAS V LOOP AVG Lt [place]way Artery 223.00 cm/sec Lt Arterial Anast 732/416 cm/sec Lt Prx Graft 200.00 ART LOOP cm/sec Lt Prx-Mid Graft 620/416 ART LOOP cm/sec Lt Mid-Dist Graft 111/55 ALMA LOOP cm/sec Lt Dst Graft 197/112 ALMA LOOP cm/sec Lt Northway Vein 93 AX V cm/sec LEFT STENT MEASUREMENTS: Vessel Velocity Location DIST AVG INTO BAS V Lt Stent Prx Northway PSV 149/77 cm/sec Lt Stent Prx Attachment PSV 128/71 cm/sec Lt Stent Prx PSV 123/76 cm/sec Lt Stent Mid PSV 134/74 cm/sec Lt Stent Dst PSV 147/88 cm/sec Lt Stent Dst Attachment PSV 141/85 cm/sec Lt Stent Dst Northway PSV 134/76 BAS V cm/sec Location 2 BAS V Lt Stent 2 Prx PSV 158/84 cm/sec Lt Stent 2 Mid PSV 145/83 cm/sec Lt Stent 2 Dst PSV 123/69 cm/sec Lt Stent 2 Dst Northway PSV 65 BRACH V cm/sec FINDINGS: Study [...] Osito Hawley MD 01/31/2025 12:25:33 PM CDT Reyes Hawley MD IM US PROCEDURES Final [...] CDT 01/24/2025 8:54 AM CDT us Steve Genki Shimotani DO LAB BLOOD ORDERABLES F inal Result [facility] [address] [facility] [place] [address] * (ABNORMAL) Differential, auto (01/24/2025 8:38 AM CDT) Neutrophil abs 3.44 1.50 - 6.50 K/cumm Imm gran abs 0.07 0.00 - 0.10 K/cumm [facility] Lymphocyte abs 2.18 0.80 - 3.30 K/cumm [facility] Monocyte abs 1.08(H) 0.20 - 0.80 K/cumm [facility] Eosinophil abs 0.18 0.00 - 0.50 K/cumm [facility] Basophil abs 0.08 0.00 - 0.10 K/cumm [facility] Neutrophil pct 48.9 % [facility] Comment: Interpretive Data Percent cell count reference ranges are not reported, since discordance with absolute values may lead to misinterpretation of CBC data. Current Interpretive Data was last revised on 2017. Imm gran pct 1.0 % [facility] Comment: Interpretive Data Percent cell count reference ranges are not reported, since discordance with absolute values may lead to misinterpretation of CBC data. Current Interpretive Data was last revised on 2017. Lymphocyte pct 31.0 % [facility] Comment: Interpretive Data Percent cell count reference ranges are not reported, since discordance with absolute values may lead to misinterpretation of CBC data. Current Interpretive Data was last revised on 2017. Monocyte pct 15.4 % [facility] Comment: Interpretive Data Percent cell count reference ranges are not reported, since discordance with absolute values may lead to misinterpretation of CBC data. Current Interpretive Data was last revised on 2017. Eosinophil pct 2.6 % [facility] Comment: Interpretive Data Percent cell count reference ranges are not reported, since discordance with absolute values may lead to misinterpretation of CBC data. Current Interpretive Data was last revised on 2017. Basophil pct 1.1 % [facility] Comment: Interpretive Data Percent cell count reference ranges are not reported, since discordance with absolute values may lead to misinterpretation of CBC data. Current Interpretive Data was last revised on 2017. Blood 01/24/2025 8:38 AM CDT 01/24/2025 8:54 AM CDT Rafiq Solis MD LAB BLOOD ORDERABLES Final Result Performing Organization Address [facility] Co de Phone Number [facility] [address] [address] * (ABNORMAL) CBC with auto differential (01/24/2025 8:38 AM CDT) WBC 7.03 3.80 - 9.90 K/cumm Hgb 9.6(L) 11.9 - 15.5 g/dL [facility] Hct 31.4(L) 35.6 - 45.5 % [facility] Plt 342 150 - 400 K/cumm [facility] MPV 10.3 9.1 - 12.3 fL [facility] RBC 3.57(L) 3.90 - 5.20 M/cumm [facility] MCV 88.0 81.3 - 96.4 fL [facility] MCH 26.9(L) 27.1 - 33.3 pg [facility] MCHC 30.6(L) 32.3 - 35.7 g/dL [facility] RDW CV 17.3(H) 11.1 - 14.9 % [facility] RDW SD 54.7(H) 35.7 - 48.1 fL [facility] NRBC abs 0.00 0.00 - 0.01 K/cumm [facility] Blood 01/24/2025 8:38 AM CDT 01/24/2025 8:54 AM CDT us Rafiq Solis MD LAB BLOOD ORDERABLES Final Result Performing Organization Address [facility] Co de Phone Number [address] [address] * (ABNORMAL) Renal function panel (01/24/2025 8:38 AM CDT) Pathologist [facility] Sodium 136 135 - 145 mmol/L Potassium, pl 4.3 3.3 - 4.9 mmol/L [facility] Chloride 96(L) 97 - 110 mmol/L [facility] CO2 25 22 - 32 mmol/L [facility] Anion gap 15 2 - 15 mmol/L [facility] BUN 26(H) 6 - 25 mg/dL [facility] Creatinine 10.30(H) 0.60 - 1.10 mg/dL [facility] Glucose 104 70 - 199 mg/dL [facility] Comment: Interpretive Data Fasting glucose [...] 2022. Calcium 10.4(H) 8.5 - 10.3 mg/dL [facility] Phosphorus, pl 7.1(H) 2.3 - 4.5 mg/dL [facility] Albumin 3.6 3.5 - 5.0 g/dL [facility] Blood 01/24/2025 8:38 AM CDT 01/24/2025 8:54 AM CDT us Steve Wilson DO LAB BLOOD ORDERABLES F inal Result [facility] [address] [facility] Department of Laboratories [place], [place] [id number] * POCT glucose (01/24/2025 8:16 AM CDT) [facility] Glucose, POC 111 70 - 199 mg/dL Glucose comment 1 RN/MD Notified [facility] Blood 01/24/2025 8:16 AM CDT 01/24/2025 8:16 AM CDT us Denver Cochran MD LAB POCT ORDERABLES - ANNIE CE Final Result Performing Organization Address City/[facility]/ZIP Co de Phone Number [facility] [address] [facility] Department [place] [address] * POCT glucose (01/23/2025 7:58 PM CDT) Glucose, POC 104 70 - 199 mg/dL Glucose comment 1 RN/MD Notified [facility] Blood 01/23/2025 7:58 PM CDT 01/23/2025 7:58 PM CDT us Denver Cochran MD LAB POCT ORDERABLES - ANNIE CE Final Result Performing Organization Address [facility] Co de Phone Number [facility] [address] [facility] [place] [address] * CT Abdomen Pelvis WO Contrast (01/23/2025 [...] Hung Candelario M.D. LB T: Report ID: [id number] Reading Location: [id number] Procedure Note Hung Candelario MD - 01/23/2025 [...] Hung Candelario M.D. LB T: Report ID: [id number] Reading Location: [place] [address] us Denver Cochran MD IMG CT PROCEDURES [...] DO LAB BLOOD ORDERABLES F inal Result [facility] [address] [facility] Department [place] [address] * (ABNORMAL) Renal function panel (01/23/2025 7:09 AM CDT) Sodium 138 135 - 145 mmol/L Potassium, pl 4.0 3.3 - 4.9 mmol/L [facility] Chloride 98 97 - 110 mmol/L [facility] CO2 27 22 - 32 mmol/L [facility] Anion gap 13 2 - 15 mmol/L [facility] BUN 20 6 - 25 mg/dL [facility] Creatinine 8.34(H) 0.60 - 1.10 mg/dL [facility] Glucose 97 70 - 199 mg/dL [facility] Comment: Interpretive Data Fasting glucose [...] 2022. Calcium 10.0 8.5 - 10.3 mg/dL [facility] Phosphorus, pl 6.1(H) 2.3 - 4.5 mg/dL [facility] Albumin 3.3(L) 3.5 - 5.0 g/dL [facility] Blood 01/23/2025 7:09 AM CDT 01/23/2025 7:48 AM CDT Steve Wilson DO LAB BLOOD ORDERABLES F inal Result Performing Organization Address [facility] Co de Phone Number [address] [place] [address] * POCT glucose (01/23/2025 5:36 AM CDT) Glucose, POC 90 70 - 199 mg/dL Glucose comment 1 RN/MD Notified [facility] Blood 01/23/2025 5:36 AM CDT 01/23/2025 5:36 AM CDT Denver Cochran MD LAB POCT ORDERABLES - ANNIE CE Final Result Performing Organization Address [facility] de Phone Number [address] [place] [address] * POCT glucose (01/22/2025 7:57 PM CDT) Glucose, POC 125 70 - 199 mg/dL Glucose comment 1 RN/MD Notified [facility] Blood 01/22/2025 7:57 PM CDT 01/22/2025 7:57 PM CDT Denver Cochran MD LAB POCT ORDERABLES - ANNIE CE Final Result Performing Organization Address [facility] de Phone Number [address] [place] [address] * POCT glucose (01/22/2025 4:08 PM CDT) Glucose, POC 111 70 - 199 mg/dL Glucose comment 1 RN/ Notified SERGIO Blood 01/22/2025 4:08 PM CDT 01/22/2025 4:08 PM CDT Denver Cochran MD LAB POCT ORDERABLES - ANNIE CE Final Result Performing Organization Address [facility] Co de Phone Number [address] [place] [address] * POCT glucose (01/22/2025 12:09 PM CDT) Glucose, POC 91 70 - 199 mg/dL Glucose comment 1 RN/ Notified [facility] [place] Blood 01/22/2025 12:0 9 PM CDT 01/22/2025 12:09 PM CDT Denver Cochran MD LAB POCT ORDERABLES - ANNIE CE Final Result Performing Organization Address [facility] Co de Phone Number [address] [place] [address] * POCT glucose (01/22/2025 7:28 AM CDT) [facility] Glucose, POC 154 70 - 199 mg/dL Glucose comment 1 RN/ Notified SERGIO Blood 01/22/2025 7:28 AM CDT 01/22/2025 7:28 AM CDT Denver Cochran MD LAB POCT ORDERABLES - ANNIE CE Final Result Performing Organization Address [facility] Co de Phone Number [address] [place] [address] * (ABNORMAL) eGFR (01/22/2025 6:12 AM CDT) [facility] eGFR 4(L) >=60 mL/min/1. 73 m2 Comment: [...] DO LAB BLOOD ORDERABLES F inal Result [facility] [address] [facility] [place] [address] * (ABNORMAL) Differential, auto (01/22/2025 6:12 AM CDT) Pathologist [facility] Neutrophil abs 3.84 1.50 - 6.50 K/cumm Imm gran abs 0.10 0.00 - 0.10 K/cumm [facility] Lymphocyte abs 2.46 0.80 - 3.30 K/cumm [facility] Monocyte abs 1.55(H) 0.20 - 0.80 K/cumm [facility] Eosinophil abs 0.26 0.00 - 0.50 K/cumm [facility] Basophil abs 0.09 0.00 - 0.10 K/cumm [facility] Neutrophil pct 46.3 % [facility] Comment: Interpretive Data Percent cell count reference ranges are not reported, since discordance with absolute values may lead to misinterpretation of CBC data. Current Interpretive Data was last revised on 2017. Imm gran pct 1.2 % [facility] Comment: Interpretive Data Percent cell count reference ranges are not reported, since discordance with absolute values may lead to misinterpretation of CBC data. Current Interpretive Data was last revised on 2017. Lymphocyte pct 29.6 % [facility] Comment: Interpretive Data Percent cell count reference ranges are not reported, since discordance with absolute values may lead to misinterpretation of CBC data. Current Interpretive Data was last revised on 2017. Monocyte pct 18.7 % [facility] Comment: Interpretive Data Percent cell count reference ranges are not reported, since discordance with absolute values may lead to misinterpretation of CBC data. Current Interpretive Data was last revised on 2017. Eosinophil pct 3.1 % [facility] Comment: Interpretive Data Percent cell count reference ranges are not reported, since discordance with absolute values may lead to misinterpretation of CBC data. Current Interpretive Data was last revised on 2017. Basophil pct 1.1 % [facility] Comment: Interpretive Data Percent cell count reference ranges are not reported, since discordance with absolute values may lead to misinterpretation of CBC data. Current Interpretive Data was last revised on 2017. Blood 01/22/2025 6:12 AM CDT 01/22/2025 7:06 AM CDT Rafiq Solis MD LAB BLOOD ORDERABLES Final Result [facility] [address] [facility] [place] [address] * (ABNORMAL) CBC with auto differential (01/22/2025 6:12 AM CDT) WBC 8.30 3.80 - 9.90 K/cumm Hgb 9.2(L) 11.9 - 15.5 g/dL [facility] Hct 29.9(L) 35.6 - 45.5 % [facility] Plt 336 150 - 400 K/cumm [facility] MPV 10.2 9.1 - 12.3 fL [facility] RBC 3.41(L) 3.90 - 5.20 M/cumm [facility] MCV 87.7 81.3 - 96.4 fL [facility] MCH 27.0(L) 27.1 - 33.3 pg [facility] MCHC 30.8(L) 32.3 - 35.7 g/dL [facility] RDW CV 16.8(H) 11.1 - 14.9 % [facility] RDW SD 54.3(H) 35.7 - 48.1 fL [facility] NRBC abs 0.02(H) 0.00 - 0.01 K/cumm [facility] Blood 01/22/2025 6:12 AM CDT 01/22/2025 7:06 AM CDT us Rafiq Solis MD LAB BLOOD ORDERABLES Final Result [facility] [address] [facility] [place] [address] * (ABNORMAL) Renal function panel (01/22/2025 6:12 AM CDT) Sodium 139 135 - 145 mmol/L Potassium, pl 4.3 3.3 - 4.9 mmol/L [facility] Chloride 98 97 - 110 mmol/L [facility] CO2 27 22 - 32 mmol/L [facility] Anion gap 14 2 - 15 mmol/L [facility] BUN 24 6 - 25 mg/dL [facility] Creatinine 9.45(H) 0.60 - 1.10 mg/dL [facility] Glucose 89 70 - 199 mg/dL [facility] Comment: Interpretive Data Fasting glucose [...] 2022. Calcium 10.1 8.5 - 10.3 mg/dL [facility] Phosphorus, pl 6.4(H) 2.3 - 4.5 mg/dL [facility] Albumin 3.5 3.5 - 5.0 g/dL [facility] Blood 01/22/2025 6:12 AM CDT 01/22/2025 7:06 AM CDT Steve Wilson DO LAB BLOOD ORDERABLES F inal Result Performing Organization Address [facility] Co de Phone Number [address] [place] [address] * POCT glucose (01/22/2025 5:44 AM CDT) Glucose, POC 88 70 - 199 mg/dL Blood 01/22/2025 5:44 AM CDT 01/22/2025 5:44 AM CDT Denver Cochran MD LAB POCT ORDERABLES - ANNIE CE Final Result Performing Organization Address [facility] de Phone Number [address] [address] * Hepatitis B surface antibody (immune status) Blood (01/21/2025 11:36 PM CDT) Pathologist [facility] HBsAb (immune status) Nonreactive Comment: Interpretive Data [...] GENERAL ORDERABLES Final Result Performing Organization Address [facility] Co de Phone Number [address] [place] [address] * Hepatitis B Surface Antigen Blood (01/21/2025 11:36 PM CDT) HepBsAg Nonreactive Nonreactive Blood 01/21/2025 11:3 6 PM CDT 01/21/2025 11:40 PM CDT Rafiq Solis MD LAB MICROBIOLOGY - GENERAL ORDERABLES Final Result Performing Organization Address [facility] Co de Phone Number [address] [place] [address] * POCT glucose (01/21/2025 8:24 PM CDT) Glucose, POC 150 70 - 199 mg/dL Blood 01/21/2025 8:24 PM CDT 01/21/2025 8:24 PM CDT Denver Cochran MD LAB POCT ORDERABLES - ANNIE CE Final Result Performing Organization Address [facility] Co de Phone Number [address] [place] [address] * POCT glucose (01/21/2025 4:44 PM CDT) Pathologist [facility] Glucose, POC 158 70 - 199 mg/dL Glucose comment 1 RN/MD Notified SERGIO Blood 01/21/2025 4:44 PM CDT 01/21/2025 4:44 PM CDT Denver Cochran MD LAB POCT ORDERABLES - ANNIE CE Final Result Performing Organization Address [facility] Co de Phone Number [address] [place] [address] * POCT glucose (01/21/2025 11:39 AM CDT) Glucose, POC 122 70 - 199 mg/dL Glucose comment 1 RN/MD Notified SERGIO Blood 01/21/2025 11:3 9 AM CDT 01/21/2025 11:39 AM CDT Denver Cochran MD LAB POCT ORDERABLES - ANNIE CE Final Result [facility] [address] [place] [address] * POCT glucose (01/21/2025 7:40 AM CDT) Glucose, POC 80 70 - 199 mg/dL Glucose comment 1 RN/MD Notified SERGIO Blood 01/21/2025 7:40 AM CDT 01/21/2025 7:40 AM CDT Denver Cochran MD LAB POCT ORDERABLES - ANNIE CE Final Result Performing Organization Address [facility] de Phone Number SERGIO [address] [address] * (ABNORMAL) eGFR (01/21/2025 6:55 AM CDT) [...] DO LAB [facility]LOOD ORDERABLES F inal Result [facility] [address] [facility] [place] [address] * (ABNORMAL) Differential, auto (01/21/2025 6:55 AM CDT) Neutrophil abs 3.58 1.50 - 6.50 K/cumm Imm gran abs 0.08 0.00 - 0.10 K/cumm [facility] Lymphocyte abs 2.06 0.80 - 3.30 K/cumm [facility] Monocyte abs 1.71(H) 0.20 - 0.80 K/cumm [facility] Eosinophil abs 0.24 0.00 - 0.50 K/cumm [facility] Basophil abs 0.07 0.00 - 0.10 K/cumm [facility] Neutrophil pct 46.3 % [facility] Comment: Interpretive Data Percent cell count reference ranges are not reported, since discordance with absolute values may lead to misinterpretation of CBC data. Current Interpretive Data was last revised on 2017. Imm gran pct 1.0 % [facility] Comment: Interpretive Data Percent cell count reference ranges are not reported, since discordance with absolute values may lead to misinterpretation of CBC data. Current Interpretive Data was last revised on 2017. Lymphocyte pct 26.6 % [facility] Comment: Interpretive Data Percent cell count reference ranges are not reported, since discordance with absolute values may lead to misinterpretation of CBC data. Current Interpretive Data was last revised on 2017. Monocyte pct 22.1 % [facility] Comment: Interpretive Data Percent cell count reference ranges are not reported, since discordance with absolute values may lead to misinterpretation of CBC data. Current Interpretive Data was last revised on 2017. Eosinophil pct 3.1 % [facility] Comment: Interpretive Data Percent cell count reference ranges are not reported, since discordance with absolute values may lead to misinterpretation of CBC data. Current Interpretive Data was last revised on 2017. Basophil pct 0.9 % [facility] Comment: Interpretive Data Percent cell count reference ranges are not reported, since discordance with absolute values may lead to misinterpretation of CBC data. Current Interpretive Data was last revised on 2017. Blood 01/21/2025 6:55 AM CDT 01/21/2025 6:58 AM CDT Steve Wilson LAB BLOOD ORDERABLES F inal Result Performing Organization Address [facility] Co de Phone Number SERGIO [address] [place] [address] * (ABNORMAL) CBC with auto differential (01/21/2025 6:55 AM CDT) WBC 7.74 3.80 - 9.90 K/cumm Hgb 8.8(L) 11.9 - 15.5 g/dL [facility] Hct 28.5(L) 35.6 - 45.5 % [facility] Plt 305 150 - 400 K/cumm [facility] MPV 9.6 9.1 - 12.3 fL [facility] RBC 3.19(L) 3.90 - 5.20 M/cumm [facility] MCV 89.3 81.3 - 96.4 fL [facility] MCH 27.6 27.1 - 33.3 pg [facility] MCHC 30.9(L) 32.3 - 35.7 g/dL [facility] RDW CV 17.0(H) 11.1 - 14.9 % [facility] RDW SD 55.4(H) 35.7 - 48.1 fL [facility] NRBC abs 0.00 0.00 - 0.01 K/cumm [facility] Blood 01/21/2025 6:55 AM CDT 01/21/2025 6:58 AM CDT Steve Wilson LAB BLOOD ORDERABLES F inal Result Performing Organization Address [facility] Co de Phone Number SERGIO [address] [place] [address] * (ABNORMAL) Renal function panel (01/21/2025 6:55 AM CDT) Pathologist [facility] Sodium 141 135 - 145 mmol/L Potassium, pl 4.1 3.3 - 4.9 mmol/L [facility] Chloride 101 97 - 110 mmol/L [facility] CO2 28 22 - 32 mmol/L [facility] Anion gap 12 2 - 15 mmol/L [facility] BUN 18 6 - 25 mg/dL [facility] Creatinine 7.68(H) 0.60 - 1.10 mg/dL [facility] Glucose 85 70 - 199 mg/dL [facility] Comment: Interpretive Data Fasting glucose [...] 2022. Calcium 9.8 8.5 - 10.3 mg/dL [facility] Phosphorus, pl 5.6(H) 2.3 - 4.5 mg/dL [facility] Albumin 3.2(L) 3.5 - 5.0 g/dL [facility] Blood 01/21/2025 6:55 AM CDT 01/21/2025 6:58 AM CDT Steve Wilson DO LAB BLOOD ORDERABLES F inal Result [facility] [address] [facility] Department [place] [address] * POCT glucose (01/20/2025 11:05 PM CDT) Pathologist [facility] Glucose, POC 113 70 - 199 mg/dL Blood 01/20/2025 11:0 5 PM CDT 01/20/2025 11:05 PM CDT us Steve Wilson DO LAB POCT ORDERABLES - DEVICE Final Result Performing Organization Address [facility] Co de Phone Number [address] [place] [address] * (ABNORMAL) Troponin T high-sensitivity 4-hour (01/20/2025 7:25 PM CDT) Trop T hs 135(H) <=14 ng/L Comment: Interpretive Data For further hscTnT resources including the diagnostic algorithm and an aid in interpretation, copy and paste this link: https://nrl.[employer].org/show/hsTrop Current Interpretive Data last revised 2020. Trop T hs pct delta 0 % [facility] [place] Trop T hs interp Insignificant [facility] Blood 01/20/2025 7:25 PM CDT 01/20/2025 7:28 PM CDT Shen Harris MD LAB BLOOD ORDERABLE S Final Result Performing Organization Address [facility] Co de Phone Number [address] [address] * (ABNORMAL) Troponin T high-sensitivity 2-hour (01/20/2025 6:03 PM CDT) Trop T hs 138(H) <=14 ng/L Comment: Interpretive Data For further hscTnT resources including the diagnostic algorithm and an aid in interpretation, copy and paste this link: https://nrl.[employer].org/show/hsTrop Current Interpretive Data last revised 2020. Trop T hs pct delta 2 % [facility] Trop T hs interp Insignificant [facility] Blood 01/20/2025 6:03 PM CDT 01/20/2025 6:06 PM CDT Shen Harris MD LAB BLOOD ORDERABLE S Final Result Performing Organization Address [facility]/ZIP Co de Phone Number [address] [place] [address] * (ABNORMAL) Urinalysis reflex to microscopic and culture Urine (01/20/2025 6:03 PM CDT) Color, ur Yellow Yellow Clarity, ur Cloudy(A) Clear [facility] Specific gravity, ur 1.014 1.003 - 1.030 [facility] pH, urine 8.0 [facility] Comment: Interpretive Data U rine pH is affected by diet, medications, systemic acid-base disturbances, and renal tubular function. pH may affect urinary stone formation. For example, urine pH below 6.0 may help reduce the tendency for calcium phosphate stones and pH greater than 6.0 may reduce the tendency for uric acid stone formation. Source: [facility] Current Interpretive Data was last revised on 2017 Protein, ur ql 2+(A) Negative [facility] Glucose, ur ql 1+(A) Negative [facility] Ketones, ur Negative Negative [facility] Bilirubin, ur Negative Negative [facility] Blood, ur Negative Negative [facility] Urobilinogen, ur <2.0 <2.0 mg/dL [facility] Nitrite, ur Negative Negative [facility] Leukocyte esterase, ur 3+(A) Negative [facility] UA reflex comment Reflex to microscopic UA will be performed. [facility] Urine 01/20/2025 6:03 PM CDT 01/20/2025 6:06 PM CDT us Shen Harris MD LAB MICROBIOLOGY - GENERAL ORDERABLES Final Result [address] [place] [address] * (ABNORMAL) Urinalysis, microscopic only (01/20/2025 6:03 PM CDT) WBC, ur 6-10(A) 0 - 5 /HPF RBC, ur 0-2 0 - 2 /HPF [facility] Epithelial cells, squamous, ur 21-50(A) 0 - 5 /HPF [facility] Comment:Suggestive of contam ination. Consider recollection by clean catch. Hyaline casts, ur 1-5 0 - 10 /LPF [facility] Culture Reflex Comment Reflex conditions for urine culture (WBC >10) not met. [facility] Urine 01/20/2025 6:03 PM CDT 01/20/2025 6:06 PM CDT us Shen Harris MD LAB URINE ORDERABLE S Final Result [facility] [address] [facility] [place] [address] * CT Head and Neck WO Contrast [...] of vertebral body height. No acute fracture. Nwsu-sy-yylniigi multilevel degenerative endplate change. There is only [...] atherosclerotic change of cavernous carotids. There is aaul-lg-khnwwhig atherosclerotic change of the right carotid bulb. [...] type change. No acute fracture cervical spine. Sfnc-gz-avmjtvpu spondylosis cervical spine. Host-eu-xuypardv atherosclerotic change as above. Again seen is [...] Nir Last M.D. MJ T: Report ID: [id number] Reading Location: [id number] Procedure Note Nir Last MD - 01/20/2025 [...] of vertebral body height. No acute fracture. Dltr-ff-zhaspxif multilevel degenerative endplate change.There is only mild [...] atherosclerotic change of cavernous carotids. There is wjfg-ir-vargjxci atherosclerotic change of the right carotid bulb. Milder change on the left. Moderate atherosclerotic changeof right where distal innominate artery. Mild atherosclerotic change originof the left vertebral artery and more moderate of the left subclavian artery. OTHER: No other significant findings. IMPRESSION: No acute intracranial findings. There is moderate age-related atrophy and chronic small vessel ischemictype change. No acute fracture cervical spine. Hbqd-bx-mjyempdi spondylosis cervical spine. Mdcu-ua-yztknojj atherosclerotic change as above. Again seen is [...] signed by Nir BETANCUR T: Report ID: [id number] Reading Location: [place] [address] Shen Harris MD IM CT PROCEDURES F inal Result * (ABNORMAL) Troponin T high-sensitivity series (baseline, 2hr, 4hr, 6hr) (01/20/2025 3:21 PM CDT) Trop T hs 135(H) <=14 ng/L Comment: Interpretive Data For further hscTnT resources including the diagnostic algorithm and an aid in interpretation, copy and paste this link: https://nrl.[employer].org/show/hsTrop Current Interpretive Data last revised 2020. Blood 01/20/2025 3:21 PM CDT 01/20/2025 3:53 PM CDT Shen Harris MD LAB BLOOD ORDERABLE S Final Result [facility] [address] [facility] Department [place] [address] * (ABNORMAL) eGFR (01/20/2025 3:21 PM CDT) eGFR 7(L) >=60 mL/min/1. 73 m2 Comment: [...] MD LAB BLOOD ORDERABLE S Final Result [facility] [address] [facility] [place] [address] * (ABNORMAL) Comprehensive metabolic panel (01/20/2025 3:21 PM CDT) Sodium 140 135 - 145 mmol/L Potassium, pl 4.3 3.3 - 4.9 mmol/L [facility] Comment:Hemolyzed; Potassium value may be falsely elevated by as much as 1.0 mmol/L. Suggest redraw and reanalysis. Chloride 102 97 - 110 mmol/L [facility] CO2 22 22 - 32 mmol/L [facility] Anion gap 16(H) 2 - 15 mmol/L [facility] BUN 13 6 - 25 mg/dL [facility] Creatinine 5.86(H) 0.60 - 1.10 mg/dL [facility] Glucose 123 70 - 199 mg/dL [facility] Comment: Interpretive Data Fasting glucose [...] 2022. Calcium 9.0 8.5 - 10.3 mg/dL [facility] Bilirubin, total 0.3 0.1 - 1.2 mg/dL [facility] Protein, pl 6.1(L) 6.5 - 8.5 g/dL [facility] Albumin 3.0(L) 3.5 - 5.0 g/dL [facility] Alk phos 111 40 - 130 Units/L [facility] ALT <5(L) 7 - 45 Units/L [facility] AST See Comment 10 - 45 [facility] Comment:Credited; Hemolyzed Specimen Blood 01/20/2025 3:21 PM CDT 01/20/2025 3:53 PM CDT us Shen Harris MD LAB BLOOD ORDERABLE S Final Result [facility] [address] [facility] Department [place] [address] * (ABNORMAL) POC Blood Gas and Chemistries, Venous - (01/20/2025 2:54 PM CDT) pH,alma POC 7.47(H) 7.32 - 7.43 pCO2, alma POC 47 40 - 50 mmHg [facility] pO2,alma POC 41 mmHg [facility] Comment: Interpretive Data No reference range established. Current interpretive data was last revised 2020. HCO3, alma (Calc) POC 34(H) 20 - 30 mmol/L [facility] Base excess, alma POC 9 mmol/L [facility] Comment: Interpretive Data No reference range established. Current interpretive data was last revised 2020. Oxy Hgb, alma POC 68.5(L) 90.0 - 95.0 % [facility] Met Hgb, alma POC 0.7 0.0 - 1.9 % [facility] Carboxy Hgb, alma POC 1.2 0.0 - 2.9 % [facility] Hemoglobin, alma POC 9.8(L) 11.9 - 15.5 g/dL [facility] Sodium, alma POC 137 135 - 145 mmol/L [facility] Potassium, alma POC 4.5 3.3 - 4.9 mmol/L [facility] Comment: Interpretive Data This method is not able to assess for hemolysis, which may falsely increase potassium concentrations. If further testing is needed to evaluate this result, consider in-laboratory plasma potassium. Current Interpretive Data was last revised on 2022. Glucose, alma POC 153 70 - 199 mg/dL [facility] Ionized Calcium, alma POC 4.64 4.50 - 5.10 mg/dL [facility] Lactate, alma POC 2.2(H) 0.7 - 2.0 mmol/L [facility] Blood 01/20/2025 2:54 PM CDT 01/20/2025 2:54 PM CDT us Shen Harris MD LAB POCT ORDERABLES - DEVICE Final Result Performing Organization Address [facility] de Phone Number SERGIO [address] [place] [address] * (ABNORMAL) eGFR (01/20/2025 2:26 PM CDT) [facility] eGFR 8(L) >=60 mL/min/1. 73 m2 Comment: [...] HUYNH LAB BLOOD ORDERABLES Final Resu lt Performing Organization Address City/[facility]/ZIP Co de Phone Number SERGIO [address] [place] [address] * (ABNORMAL) Differential, auto (01/20/2025 2:26 PM CDT) [facility] Neutrophil abs 5.19 1.50 - 6.50 K/cumm Imm gran abs 0.08 0.00 - 0.10 K/cumm [facility] Lymphocyte abs 1.82 0.80 - 3.30 K/cumm [facility] Monocyte abs 1.29(H) 0.20 - 0.80 K/cumm [facility] Eosinophil abs 0.19 0.00 - 0.50 K/cumm [facility] Basophil abs 0.07 0.00 - 0.10 K/cumm [facility] Neutrophil pct 60.1 % [facility] Comment: Interpretive Data Percent cell count reference ranges are not reported, since discordance with absolute values may lead to misinterpretation of CBC data. Current Interpretive Data was last revised on 2017. Imm gran pct 0.9 % [facility] Comment: Interpretive Data Percent cell count reference ranges are not reported, since discordance with absolute values may lead to misinterpretation of CBC data. Current Interpretive Data was last revised on 2017. Lymphocyte pct 21.1 % [facility] Comment: Interpretive Data Percent cell count reference ranges are not reported, since discordance with absolute values may lead to misinterpretation of CBC data. Current Interpretive Data was last revised on 2017. Monocyte pct 14.9 % [facility] Comment: Interpretive Data Percent cell count reference ranges are not reported, since discordance with absolute values may lead to misinterpretation of CBC data. Current Interpretive Data was last revised on 2017. Eosinophil pct 2.2 % [facility] Comment: Interpretive Data Percent cell count reference ranges are not reported, since discordance with absolute values may lead to misinterpretation of CBC data. Current Interpretive Data was last revised on 2017. Basophil pct 0.8 % [facility] Comment: Interpretive Data Percent cell count reference ranges are not reported, since discordance with absolute values may lead to misinterpretation of CBC data. Current Interpretive Data was last revised on 2017. Blood 01/20/2025 2:26 PM CDT 01/20/2025 2:29 PM CDT us Juana HUYNH LAB BLOOD ORDERABLES Final Resu lt SERGIO BOLTON [address] [facility] [place] [address] * (ABNORMAL) CBC with auto differential (01/20/2025 2:26 PM CDT) Pathologist [facility] WBC 8.64 3.80 - 9.90 K/cumm Hgb 9.5(L) 11.9 - 15.5 g/dL [facility] Hct 30.9(L) 35.6 - 45.5 % [facility] Plt 349 150 - 400 K/cumm [facility] MPV 9.6 9.1 - 12.3 fL [facility] RBC 3.54(L) 3.90 - 5.20 M/cumm [facility] MCV 87.3 81.3 - 96.4 fL [facility] MCH 26.8(L) 27.1 - 33.3 pg [facility] MCHC 30.7(L) 32.3 - 35.7 g/dL [facility] RDW CV 17.0(H) 11.1 - 14.9 % [facility] RDW SD 53.7(H) 35.7 - 48.1 fL [facility] NRBC abs 0.00 0.00 - 0.01 K/cumm [facility] Blood Venous blood specimen / Unknown 01/20/2025 2:26 PM CDT 01/20/2025 2:29 PM CDT Narrative [facility] - 01/20/2025 2:39 PM CDT Potential Stroke Patient Shen Harris MD LAB BLOOD ORDERABLE S Final Result [facility] [place] [address] * aPTT (01/20/2025 2:26 PM CDT) [facility] aPTT 27 22 - 37 sec Comment: Interpretive data aPTT test has not been evaluated for monitoring heparin therapy. The anti-Xa is the preferred test. Current interpretive data was last revised on 2019. Blood Venous blood specimen / Unknown 01/20/2025 2:26 PM CDT 01/20/2025 2:29 PM CDT Narrative [facility] - 01/20/2025 2:44 PM CDT Potential stroke patient. Shen Harris MD LAB BLOOD ORDERABLE S Final Result Performing Organization Address [facility] de Phone Number SERGIO [address] [facility] [place] [address] * (ABNORMAL) Protime-INR (01/20/2025 2:26 PM CDT) PT 15.2(H) 12.0 - 14.6 sec Comment:Ref Range High INR 1.2 0.9 - 1.2 [facility] Comment: Ref Range High Interpretive data Oral [...] ORDERABLE S Final Result Performing Organization Address [facility] Co de Phone Number SERGIO [facility] [place] [address] * (ABNORMAL) Comprehensive metabolic panel (01/20/2025 2:26 PM CDT) Sodium 138 135 - 145 mmol/L Potassium, pl See Comment 3.3 - 4.9 [facility] Comment:Credited; Hemolyzed Specimen Chloride 99 97 - 110 mmol/L [facility] CO2 26 22 - 32 mmol/L [facility] Anion gap 13 2 - 15 mmol/L [facility] BUN 13 6 - 25 mg/dL [facility] Creatinine 5.78(H) 0.60 - 1.10 mg/dL [facility] Glucose 182 70 - 199 mg/dL [facility] Comment: Interpretive Data Fasting glucose [...] 2022. Calcium 9.4 8.5 - 10.3 mg/dL [facility] Bilirubin, total 0.4 0.1 - 1.2 mg/dL [facility] Protein, pl 7.1 6.5 - 8.5 g/dL [facility] Albumin 3.4(L) 3.5 - 5.0 g/dL [facility] Alk phos 124 40 - 130 Units/L [facility] Comment:Hemolyzed; result ma y be falsely decreased ALT See Comment [facility] Comment:Credited; Hemolyzed Specimen AST See Comment [facility] Comment:Credited; Hemolyzed Specimen Blood Venous blood specimen / Unknown 01/20/2025 2:26 PM CDT 01/20/2025 2:29 PM CDT Narrative [facility] - 01/20/2025 3:11 PM CDT Potential Stroke Patient us Shen Harris MD LAB BLOOD ORDERABLE S Final Result [facility] [address] [facility] Department [place] [address] * ECG 12 lead (01/20/2025 2:18 PM CDT) Ventricular Rate EKG/Min [address] [facility] Atrial Rate 89 BPM [facility] ID-Interval (MSEC) [address] [facility] QRS-Interval (MSEC) [address] [facility] QT-Interval (MSEC) [address] [facility] QTc [address] [facility] P [place] [address] [facility] R [place] -29 degrees [facility] T [place] [address] [facility] Diagnosis Normal sinus rhythm Possible Left atrial enlargement Right bundle branch block Abnormal ECG When compared with ECG of 13-APR-2023 10:12, QRS axis Shifted left Confirmed by TALAT DRAKE M.D. ([id number]) on 01/21/2025 11:24:18 AM [facility] 01/20/2025 2:18 PM CDT 01/21/2025 11:24 AM CDT us Shen Harris MD ECG ORDERABLES Fin al Result [facility] * CT Stroke Head WO Contrast (01/20/2025 [...] 2:18 PM - Electronically signed by Wallace YMERS T: Report ID: [id number] Reading Location: [id number] Procedure Note Wallace Wadsworth MD - 01/20/2025 [...] Wallace Wadsworth M.D. RB T: Report ID: [id number] Reading Location: [place] [address] Shen Harris MD IMG CT PROCEDURES F inal Result * (ABNORMAL) POCT glucose (01/20/2025 2:06 PM CDT) Glucose, POC 201(H) 70 - 199 mg/dL Glucose comment 1 RN/MD Notified SERGIO BOLTON Blood 01/20/2025 2:06 PM CDT 01/20/2025 2:06 PM CDT us Notinfile Unknown LAB POCT ORDERABLES - DEVICE F inal Result SERGIO BOLTON [address] [facility] Department [place] [address] * POCT glucose (01/07/2025 12:19 PM CDT) Glucose, POC 123 70 - 199 mg/dL Blood 01/07/2025 12:1 9 PM CDT 01/07/2025 12:19 PM CDT Reyes Hawley MD LAB POCT ORDERABLES - ANNIE CE Final Result SERGIO MH [address] [facility] Department [place] [address] * FL Fluoroscopy < 1 Hour (01/07/2025 11:54 AM CDT) Narrative [id number] - 01/07/2025 11:55 AM CDT The images from this study are not interpreted by Radiology. Please refer to the physician's procedure / OR operative note. Reyes Hawley MD IMG FLUOROSCOPY PROCEDURES Final Result Performing Organization Address [facility] de Phone Number [email or web address] * ID AN ELECTIVE SUPRAGLOTTIC AIRWAY, ID AN PROCEDURE PLACEHOLDER (01/07/2025 11:25 AM CDT) Narrative Julia Puckett CRNA - 01/07/2025 11:25 AM CDT Julia Puckett CRNA 01/07/2025 11:26 AM Airway Patient location: OR Urgency: elective Indications for airway management: anesthesia Difficult airway: no Staff: Supervising provider: José Parham MD Placed by: HAMMER [employer]OP SUPERVISOR: Julia Puckett CRNA Emergent airway documentation: Risks [...] alma POC 31(L) 40 - 50 mmHg [facility] pO2,alma POC 48 mmHg [facility] Comment: Interpretive Data No reference range established. Current interpretive data was last revised 2020. HCO3, alma (Calc) POC 19(L) 20 - 30 mmol/L [facility] Base excess, alma POC -5 mmol/L [facility] Comment: Interpretive Data No reference range established. Current interpretive data was last revised 2020. Hemoglobin, alma POC 10.2(L) 11.9 - 15.5 g/dL [facility] Hematocrit, alma POC 30.0(L) 35.6 - 45.5 % [facility] Sodium, alma POC 138 135 - 145 mmol/L [facility] Potassium, alma POC 4.4 3.3 - 4.9 mmol/L [facility] Comment: Interpretive Data This method is not able to assess for hemolysis, which may falsely increase potassium concentrations. If further testing is needed to evaluate this result, consider in-laboratory plasma potassium. Current Interpretive Data was last revised on 2022. Glucose, alma POC 150 70 - 199 mg/dL [facility] Ionized Calcium, alma POC 4.90 4.50 - 5.10 mg/dL [facility] Blood 01/07/2025 9:57 AM CDT 01/07/2025 9:57 AM CDT us Reyes Hawley MD LAB POCT ORDERABLES - ANNIE CE Final Result [facility] [address] [facility] Department [place] [address] * (ABNORMAL) Hemoglobin A1c (01/07/2025 9:55 AM CDT) [facility] Hgb A1C 6.9(H) 4.0 - 5.6 % Estimated Average Glucose 151 mg/dL [facility] Comment: The ADA recommends reporting an estimated Average Glucose (eAG) with all Hemoglobin A1c results using the equation derived from a study of 507 normal and diabetic adults. Minority populations were underrepresented and children were not included. (Diabetes Care 31:8420-2685, 2008). The eAG is not equivalent to a fasting glucose. Blood 01/07/2025 9:55 AM CDT 01/07/2025 10:01 AM CDT us Kathy Darby NP LAB BLOOD ORDERABLES Final Result Performing Organization Address [facility] Co de Phone Number SERGIO [address] [address] * (ABNORMAL) eGFR (01/06/2025 9:30 AM CDT) eGFR 4(L) >=60 mL/min/1. 73 [...] CDT 01/06/2025 9:37 AM CDT us Reyes Hawely MD LAB BLOOD ORDERABLES Final Result Performing Organization Address City/[facility]/ZIP Co de Phone Number SERGIO [address] [place] [address] * (ABNORMAL) Differential, auto (01/06/2025 9:30 AM CDT) Neutrophil abs 6.43 1.50 - 6.50 K/cumm Imm gran abs 0.04 0.00 - 0.10 K/cumm [facility] Lymphocyte abs 1.53 0.80 - 3.30 K/cumm [facility] Monocyte abs 1.25(H) 0.20 - 0.80 K/cumm [facility] Eosinophil abs 0.26 0.00 - 0.50 K/cumm [facility] Basophil abs 0.06 0.00 - 0.10 K/cumm [facility] Neutrophil pct 67.2 % [facility] Comment: Interpretive Data Percent cell count reference ranges are not reported, since discordance with absolute values may lead to misinterpretation of CBC data. Current Interpretive Data was last revised on 2017. Imm gran pct 0.4 % [facility] Comment: Interpretive Data Percent cell count reference ranges are not reported, since discordance with absolute values may lead to misinterpretation of CBC data. Current Interpretive Data was last revised on 2017. Lymphocyte pct 16.0 % [facility] Comment: Interpretive Data Percent cell count reference ranges are not reported, since discordance with absolute values may lead to misinterpretation of CBC data. Current Interpretive Data was last revised on 2017. Monocyte pct 13.1 % [facility] Comment: Interpretive Data Percent cell count reference ranges are not reported, since discordance with absolute values may lead to misinterpretation of CBC data. Current Interpretive Data was last revised on 2017. Eosinophil pct 2.7 % [facility] Comment: Interpretive Data Percent cell count reference ranges are not reported, since discordance with absolute values may lead to misinterpretation of CBC data. Current Interpretive Data was last revised on 2017. Basophil pct 0.6 % [facility] Comment: Interpretive Data Percent cell count reference ranges are not reported, since discordance with absolute values may lead to misinterpretation of CBC data. Current Interpretive Data was last revised on 2017. Blood 01/06/2025 9:30 AM CDT 01/06/2025 9:37 AM CDT us Reyes Hawley MD LAB BLOOD ORDERABLES Final Result SERGIO [address] [place] [address] * (ABNORMAL) CBC with auto differential (01/06/2025 9:30 AM CDT) [facility] WBC 9.57 3.80 - 9.90 K/cumm Hgb 9.9(L) 11.9 - 15.5 g/dL [facility] Hct 31.1(L) 35.6 - 45.5 % [facility] Plt 268 150 - 400 K/cumm [facility] MPV 10.2 9.1 - 12.3 fL [facility] RBC 3.54(L) 3.90 - 5.20 M/cumm [facility] MCV 87.9 81.3 - 96.4 fL [facility] MCH 28.0 27.1 - 33.3 pg [facility] MCHC 31.8(L) 32.3 - 35.7 g/dL [facility] RDW CV 17.4(H) 11.1 - 14.9 % [facility] RDW SD 56.5(H) 35.7 - 48.1 fL [facility] NRBC abs 0.00 0.00 - 0.01 K/cumm [facility] Blood 01/06/2025 9:30 AM CDT 01/06/2025 9:37 AM CDT us Reyes Hawley MD LAB BLOOD ORDERABLES Final Result [address] [place] [address] * (ABNORMAL) Basic metabolic panel (01/06/2025 9:30 AM CDT) [facility] Sodium 139 135 - 145 mmol/L Potassium, pl 4.1 3.3 - 4.9 mmol/L [facility] Chloride 104 97 - 110 mmol/L [facility] CO2 20(L) 22 - 32 mmol/L [facility] Anion gap 15 2 - 15 mmol/L [facility] BUN 47(H) 6 - 25 mg/dL [facility] Creatinine 9.55(H) 0.60 - 1.10 mg/dL [facility] Glucose 140 70 - 199 mg/dL [facility] Comment: Interpretive Data Fasting glucose >/= [...] 2022. Calcium 9.6 8.5 - 10.3 mg/dL SERGIO Blood 01/06/2025 9:30 AM CDT 01/06/2025 9:37 AM CDT us Reyes Hawley MD LAB BLOOD ORDERABLES Final Result Performing Organization Address City/State/[facility] Co sd Phone Number [facility] [address] [facility] [place] [address] * Hemodialysis Access (01/06/2025 9:18 AM CDT) Anatomical Region Laterality Modality Vascular N/A Ultrasound 01/06/2025 8:46 AM CDT Narrative 01/06/2025 2:55 PM CDT Hemodialysis Access Duplex Report Patient Name: EMILY IBRAHIM R : 1960 (64y 2m) Gender: F Study Date: 01/06/2025 08:46:25 AM Controls Designer: Celeste Whitaker Provider: REYES HAWLEY Provider: REYES [...] Lt Location Forearm AV loop graft Lt [place]way Artery 58.00 cm/sec Lt Arterial Anast 24.00 cm/sec Lt Prx Graft 0.00 cm/sec Lt Prx-Mid Graft 0.00 cm/sec Lt Mid Graft 0.00 cm/sec Lt Mid-Dist Graft 0.00 cm/sec Lt Dst Graft 0.00 cm/sec Lt Venous Anast 0.00 cm/sec Lt Northway Vein 0.00 cm/sec FINDINGS: Study Quality: The study quality is adequate. Left: Basilic vein occluded. AX vein 14 cm/sec, 13 cm/sec. SCV 20 cm/sec, 19 cm/sec. CONCLUSIONS: 1. The AV graft is occluded. Electronically Signed By: Reyes Hawley MD 01/06/2025 1:45:23 PM CDT Procedure Note Reyes Halwey MD - 01/06/2025 Hemodialysis Access Duplex Report Patient Name: EMILY IBRAHIM R : 1960 (64y 2m) Gender: F Study Date: 01/06/2025 08:46:25 AM Controls Designer: Celeste Whitaker Provider: REYES HAWLEY Provider: REYES [...] Lt Location Forearm AV loop graft Lt [place] Artery 58.00 cm/sec Lt Arterial Anast 24.00 cm/sec Lt Prx Graft 0.00 cm/sec Lt Prx-Mid Graft 0.00 cm/sec Lt Mid Graft 0.00 cm/sec Lt Mid-Dist Graft 0.00 cm/sec Lt Dst Graft 0.00 cm/sec Lt Venous Anast 0.00 cm/sec Lt Northway Vein 0.00 cm/sec FINDINGS: Study Quality: The study quality is adequate. Left: Basilic vein occluded. AX vein 14 cm/sec, 13 cm/sec. SCV 20 cm/sec,19 cm/sec. CONCLUSIONS: 1. The AV graft is occluded. Electronically Signed By: Reyes Hawley MD 01/06/2025 1:45:23 PM CDT Reyes Hawley MD [facility] US PROCEDURES Final Re sult * (ABNORMAL) Lipid panel (04/13/2023 10:17 AM CDT) Cholesterol 142 30 - 199 mg/dL SERG[facility] Comment: Sample investigated and found to be [...] on 2018. Triglycerides 172(H) <=149 mg/dL SERG[facility] Comment: Sample investigated and found to be [...] Pediatrics 2011;128:S213 2. NCEP Expert Panel. Circulation 2003;110:227 Current Interpretive Data was last revised on 2018. HDL 42 >=40 mg/dL SERG[facility] Comment: Sample investigated and found to be [...] Pediatrics 2011;128:S213 2. NCEP Expert Panel. Circulation 2003;110:227 Current Interpretive Data was last revised on 2018. LDL, calculated 66 <=129 mg/dL SERG[facility] Comment: Sample investigated and found to be [...] revised on 2018. Non-HDL Cholesterol 100 mg/dL SERG[facility] Comment: Sample investigated and found to be [...] last revised on 2018. Chol/HDL ratio 3 [facility] Comment:Sample investigated and found to be analytically accurate. If results do not match clinical presentation, improper collection (e.g., IV fluid contamination, improper tube type, mislabel) should be considered and re-collection recommen Blood 04/13/2023 10:1 7 AM CDT 04/13/2023 10:37 AM CDT Sherri HILL [facility] - 04/13/2023 1:03 PM CDT This lab is being obtained as part of a Kidney transplant evaluation, is time sensitive, and should only be drawn during the evaluation visit at [facility] Lab. us Damaso Franklin MD LAB BLOOD ORDERABLES Final R esult Performing Organization Address [facility] Co de Phone Number [facility] [place] [address] * Hepatitis C antibody (04/13/2023 10:16 AM CDT) [facility] Hep C Ab Nonreactive Nonreactive [facility] Comment:Antibodies to HCV no t detected. Does NOT exclude the possibility of recent exposure to HCV. Current interpretive data was last revised on 22 Blood 04/13/2023 10:1 6 AM CDT 04/13/2023 10:36 AM CDT Narrative [facility] - 04/13/2023 1:02 PM CDT This lab is being obtained as part of a Kidney transplant evaluation, is time sensitive, and should only be drawn during the evaluation visit at [address] Damaso Franklin MD LAB MICROBIOLOGY - GENERAL O RDERABLES Edited Result - Final Performing Organization Address [facility] Co de Phone Number [facility] Department [place] [address] * Occult blood, fecal non neoplasm screening (04/30/2018 4:05 AM CDT) [facility] Stool Occult Blood NEGATIVE NEGATIVE 04/30/2018 4:48 AM CDT [facility] [employer] HISTORICAL RESULTS 04/30/2018 4:05 AM CDT 04/30/2018 4:44 AM CDT Narrative [facility] HISTORICAL RESULTS - 04/30/2018 4:48 AM CDT Collected By rs us Julia Eduardo NP LAB BODY FLUIDS AND S TOOLS ORDERABLES Final Result Performing Organization Address [facility] Co de Phone Number [facility] [employer] HISTORICAL RESULTS from Last 3 Months or Most Recently Relevant to Health Maintenance Insurance IDPA [facility] MEDICARE ADVANTAGE IDPA [facility] MEDICARE ADVANTAGE IDPA IDPA [employer] [place] TRANSPLANT [employer] MEDICARE RISK TRANSPLANT [employer] MEDICARE RISK IDPA Advance Directives For more information, please contact: [phone] * Full Code (Latest Code Status on [...] 9:58 PM 06/12/2018 6:57 PM Care Teams Type Proof Reproducer Relationship Specialty Start Date End Date Reyes Motley DO PCP - General Family Medicine 03/08/21 Edgardo Luong MD Consulting Physician Nephrology 08/30/21 Reyes Hawley MD [address] [facility] [address] [place] [facility] [place] [address] Surgeon Vascular Surgery 01/03/22 Nettie Etienne MD [address] [facility] [address] [place] [address] [place] [address] Referring Physician Cardiology 02/02/22
--- OUTSIDE RECORDS SUMMARY | 2025-03-10 07:38 | XMS_ITS | Encounter Summary ---
Author Organization [facility] Address [facility] [place] [address] Care Team Providers Care Oxygen Furnace Operator Name Role Phone Drew Cope MD Primary Care Provider [phone] Tomas Hopkins MD Unavailable [phone] Reyes Motley DO Primary Care Provide r Encounter Details Date Type Department Care Team (Late st Contact Info) Description 08/06/2019 Hospital Follow-up Call [facility] [place] [address] Terri Amin, Media Specialist Social History Tobacco Use Types Packs/Day Years [...] Sex Assigned at Female 09/10/2024 8:16 AM SPORTS MEDICINE PHYSICIAN Legal Sex Female 9:22 PM CDT Gender Identity Not on file Sexual Orientation Not on file documented as of this encounter Functional Status * RETIRED Are you deaf or do you have serious difficulty hearing Answer Date of Assessment Author Status No 08/05/2019 2:43 PM SPORTS MEDICINE PHYSICIAN Activ e * RETIRED Are you blind or do you have serious difficulty seeing, even when wearing glasses? Answer Date of Assessment Author Status Yes 08/05/2019 2:43 PM SPORTS MEDICINE PHYSICIAN Activ e * Do you have serious [...] Description 03/12/2025 9:20 AM CDT Office Visit [facility] - [address], [address] [place] [address] Conchis Lopez MD [address] [place] [address] documented as of this encounter Visit Diagnoses Not on filedocumented in this encounter Care Teams Oxygen Furnace Operator Relationship Specialty Start Date End Date Drew Cope MD [address] [facility] [address] [place] [address] PCP - General INTERNAL MEDICINE 02/06/19 11/10/20 Reyes Motley DO [address] [place] [phone] PCP - General FAMILY PRACTICE 11/11/20 Tomas Hopkins MD [facility] [address] [place] [address] [place] Float Builder CARDIOVASCULAR DISEASE 09/10/19 documented as of this encounter
--- OUTSIDE RECORDS SUMMARY | 2025-03-10 07:39 | XMS_ITS | Clinical Summary ---
Author Organization [facility] Address [address] [place] [address] Care Team Providers Care Checker In Name Role Phone Reyes Motley DO Primary Care Provide r Drew Cope MD Unavailable [phone] Source Comments [facility],non-owned Affiliates and Associated Physician Practices is amultiple site organization consisting of ambulatory clinics and hospital sitesin [place], [place], [place] and [place]. This disclosure is being madepursuant to the Care Everywhere program and may not contain all information available regarding this patient. Last updated 18.[facility] Allergies Active Allergy Reactions Criticality Noted Date Comments Celecoxib Nausea and/or Vomiting Low 06/21/2017 Cephalexin GI Discomfort,Nausea and/or Vomiting Low 11/01/2020 Other reaction(s): Stomach upset Ciprofloxacin Itching,Vomiting Low 04/27/2020 Fish Allergy Unknown 10/05/2023 Iodine Unknown,Vomiting Low 10/27/2015 Losartan Other,Nausea and/or Vomiting,Vomiting Low 04/29/2020 Penicillins Anaphylaxis High 09/18/2014 Shellfish Allergy Unknown 10/31/2020 Sulfa Drugs Nausea and/or Vomiting Low 02/06/2019 04/29/2020 ok to give bactrim Db HUYNH/ Teressa PanD Trimethoprim Other 05/05/2020 Medications * Be aware that medications may not be up to date on this document. Alwaysverify current medications with the patient. atorvastatin (LIPITOR) 80 MG tablet Take 1 (one) tablet by mouth at bedtime 30 tablet 3 1 Active allopurinol (ZYLOPRIM) 100 MG tablet Take 2 (two) tablets by mouth once daily Active Cholecalcifero l 1.25 MG (49927 UT) Active famotidine (PEPCID) 20 MG tablet Take 1 (one) tablet by mouth once daily Active oxybutynin CR 24hr (DITROPAN-XL) 10 MG tablet Take 1 (one) tablet by mouth once daily Active polyethylene glycol 3350 (MIRALAX) 17 g packet Take by mouth once daily as needed for Constipation Active senna (SENOKOT) 8.6 MG tablet Take by mouth once daily Active aspirin (ASPIRIN) 81 MG chew tabletIndicati ons:Paresthesi as Take 1 (one) tablet by mouth once daily 30 tablet 1 Active acetaminophen (Tylenol) 325 MG tablet Take 2 (two) tablets by mouth every 4 hours as needed Maximum allowable Acetaminophen amount = 4 Grams (4000 mg) / 24 hours. 3 Active capsaicin (Zostrix) 0.025 % cream Apply to affected area 2 times daily 60 g 3 Active diclofenac sodium (Voltaren) 1 % gel Apply 2 (two) g to affected area 4 times daily as needed (FOr knee pain) 50 g 3 Active B Drwsznx-F-Acvs c Acid (vitamin B complex w/ C 60mg & FA 0.8mg) 0.8 MG TABS tablet Take 1 (one) tablet by mouth once daily 90 tablet 3 Active hydrALAZINE (Apresoline) 25 MG tablet Take 1 (one) tablet by mouth 3 times daily as needed (for BP > 180/100) 4 Active amLODIPine (Norvasc) 10 MG tablet Take 1 (one) tablet by mouth once daily 4 Active fluticasone propionate (Flonase) 50 MCG/ACT nasal spray [place] 2 (two) sprays into each nostril once daily 4 Active saline nasal spray ([place]; Baby [place]) 0.65 % nasal spray [place] 2 (two) sprays into each nostril every 1 hour as needed for Dry Nose 4 Active Active Problems Problem Noted Date Diagnosed Date ESRD on hemodialysis 10/04/2023 Acute cough 10/04/2023 Partial small bowel obstruction 06/24/2023 Incarcerated hernia 06/24/2023 Altered mental status, unspe cified altered mental status type 09/08/2022 Hypertension, unspecified type 09/08/2022 Multiple falls 09/08/2022 Altered behavior 09/08/2022 Paresthesias 10/31/2020 Stroke-like symptoms 10/31/2020 Weakness 10/22/2020 Infection following procedure 09/28/2014 Peritoneal abscess 09/28/2014 Ventral hernia without obstruction or gangrene 0 09/24/2014 Abdominal pain 09/19/2014 Family History Medical History Relation Name Comments CVA Mother Relation Name Status Comments Mother Social History Tobacco Use Types Packs/Day Years Used Date Smoking Tobacco: Never Smokeless Tobacco: Never Tobacco Cessation:Counseling Given: No Alcohol Use Standard Drinks/Week Comments Never 0 (1 standard drink = 0.6 oz pur e alcohol) AUDIT-C Answer Date Recorded Q1: How often do you have a drink containing alcohol? Patient declined 10/12/2023 Q2: How many drinks containi ng alcohol do you have on a typical day when you are drinking? Patient unable to answer Q3: How often do you have si x or more drinks on one occasion? Patient declined 10/12/2023 Overall Financial Resource Strain (CARDIA) Answe r Date Recorded How hard is it for you to pa y for the very basics like food, housing, medical care, and heating? Not hard at all 10/12/2023 [facility] - Occupational Stress Questionnaire Answer Date Recorded Do you feel stress - tense, restless, nervous, or anxious, or unable to sleep at night because your mind is troubled all the time - these days? Patient declined 10/12/2023 Hunger Vital Sign Answer Date Recorded Within the past 12 months, y ou worried that your food would run out before you got the money to buy more. Never true 10/12/19 24 Within the past 12 months, t he food you bought just didn't last and you didn't have money to get more. Never true 10/12/2023 PRAPARE - Transportation Answer Date Re corded In the past 12 months, has l ack of transportation kept you from medical appointments or from getting medications? No 09/28 In the past 12 months, has l ack of transportation kept you from meetings, work, or from getting things needed for daily living? No 10/12/2023 Housing Stability Vital Sign Answer Ole e Recorded In the last 12 months, was t here a time when you were not able to pay the mortgage or rent on time? No 10/12/2023 In the last 12 months, how many places have you lived? 1 10/12/2023 In the last 12 months, was t here a time when you did not have a steady place to sleep or slept in a long term (including now)? No 10/12/2023 Comments No Sex and Gender Information Value Date Recorded Sex Assigned at Not on file Legal Sex Female 3:27 PM LITIGATION SUPPORT ANALYST Gender Identity Not on file Sexual Orientation Not on file Last Filed Vital Signs Vital Sign Reading Time Taken Comments Blood Pressure 110/69 10/19/2023 3:44 AM LITIGATION SUPPORT ANALYST Pulse 86 10/19/2023 3:44 AM LITIGATION SUPPORT ANALYST Temperature 36.8 C (98.2 F) 10/19/2023 3:44 AM LITIGATION SUPPORT ANALYST Respiratory Rate 18 10/19/2023 8:23 AM LITIGATION SUPPORT ANALYST Oxygen Saturation 94% 10/19/2023 3:44 AM LITIGATION SUPPORT ANALYST Inhaled Oxygen Concentration 21% 10/10/2023 1 0:48 PM LITIGATION SUPPORT ANALYST Weight 93.5 kg (206 lb 1.6 oz) 10/17/2023 7:16 A M LITIGATION SUPPORT ANALYST Height 157.5 cm (5' 2) 10/17/2023 7:16 AM LITIGATION SUPPORT ANALYST Body Mass Index 37.7 10/17/2023 7:16 AM LITIGATION SUPPORT ANALYST Plan of Treatment Health Maintenance Due Date Last Done Comments BONE DENSITY TESTING 1960 COLOGUARD (AGES 45-75) - COLON CA SCREENING 1958 COLON MONITORING 1958 COLONOSCOPY - COLON CA SCREENING 1960 CT COLONOGRAPHY - COLON CA SCREENING 1960 Colorectal Cancer Screening 1960 FIT - COLON CA SCREENING 1958 FLEX SIG - COLON CA SCREENING 1958 DTAP/TDAP/TD VACCINES (1 - Tdap) 1977 PNEUMOCOCCAL VACCINE 50+ (1 of 2 - PCV) 1977 HEPATITIS B VACCINE (1 of 3 - Risk Dialysis 4-dose series) 1978 ZOSTER VACCINE (1 of 2) 2008 Respiratory Syncytial Virus (RSV) Vaccine Pt: or over 60 yrs (1 - Risk 60-74 years 1-dose series) 2018 COVID-19 VACCINE (4 - season) 2024 09/04/2021, 03/03/2021, 01/29/2021 DEPRESSION SCREENING 08/28/2024 MEDICARE AWV CALENDAR YEAR 2024 INFLUENZA VACCINE (#1) 2025 , 06/06/2022, 07/06/2020, Additional history exists MAMMOGRAM 05/13/2025 05/13/2023, 04/28, 02/19/2019 SCREENING FOR DIABETES 10/18/2026 , 10/10/2023, 10/10/2023, Additional history exists HEPATITIS C SCREENING Completed 05/22/2023 , 04/13/2023, 04/13/2023, Additional history exists HIB VACCINE Aged Out No longer eligi ble based on patient's age to complete this topic HPV VACCINE Aged Out No longer eligi ble based on patient's age to complete this topic MENINGOCOCCAL (Group B) VACCINE SHARED DECISION-MAKING Aged Out No longer eligible based on patient's age to complete this topic MENINGOCOCCAL GROUPS A/C/Y/W VACCINE Aged Out No longer eligible based on patient's age to complete this topic Procedures Procedure Name Priority Date/Time Associated Diagnosis Comments GLUCOSE - POINT OF CARE Routine 10/18/2023 4:12 PM LITIGATION SUPPORT ANALYST HEPATITIS SCREEN ACUTE Routine 09/10/2022 7:23 AM LITIGATION SUPPORT ANALYST from Last 3 Months or Most Recently Relevant to Health Maintenance Results * (ABNORMAL) GLUCOSE - POINT OF CARE (10/18/2023 4:12 PM LITIGATION SUPPORT ANALYST) [facility] Glucose WB/POC 129(H) 70 - 106 mg/dL 10/18/2023 4:22 PM LITIGATION SUPPORT ANALYST [facility] Specimen Type Venous 10/18/2023 4:22 PM LITIGATION SUPPORT ANALYST [facility] Blood BLOOD SPECIMEN / Unknown 10/18/2023 4:12 PM LITIGATION SUPPORT ANALYST 10/18/2023 4:22 PM LITIGATION SUPPORT ANALYST Carlos Rosa MD LAB - POINT OF CARE ORDERABLES Final Result Performing Organization Address [facility] Co de Phone Number [facility] [address] [place] [address] * HEPATITIS SCREEN ACUTE (09/10/2022 7:23 AM LITIGATION SUPPORT ANALYST) Pathologist [facility] HAV Antibody IgM Non Reactive Non Reactive 09/10/2022 9:51 AM LITIGATION SUPPORT ANALYST [facility] HBsAg Non Reactive Non Reactive 09/10/2022 9:51 AM LITIGATION SUPPORT ANALYST [facility] HBc Antibody IgM Non Reactive Non Reactive 09/10/2022 9:51 AM LITIGATION SUPPORT ANALYST [facility] HCV Antibody Screen Non Reactive Non Reactive 09/10/2022 9:51 AM LITIGATION SUPPORT ANALYST [facility] Blood BLOOD SPECIMEN / Unknown Lab Venipuncture / Unknown 09/10/2022 7:23 AM LITIGATION SUPPORT ANALYST 09/10/2022 8:48 AM LITIGATION SUPPORT ANALYST Narrative [facility] - 09/10/2022 9:51 AM LITIGATION SUPPORT ANALYST Non Reactive - Antibodies to Hepatitis C virus (HCV) were not detected, result does not exclude early acute HCV infection. Vasile Corbett MD LAB - CHEMISTRY ORDERABLE S Final Result Performing Organization Address [facility] de Phone Number [facility] [address] [place] [address] from Last 3 Months or Most Recently Relevant to Health Maintenance Insurance MEDICARE MEDICAID - [place] MED[place]ARE MEDICAID - OUT OF STATE [facility] MANAGED MEDICARE ADV MEDICAID [facility] MEDICAID - [place] MED[place]ARE MEDICAID - [facility] MEDICARE Member Subscriber Plan / Payer (Ef fective 2004-Present) Name:Emily Ibrahim Member ID:[id number] Relation to Subscriber:Self Name:EMILY IBRAHIM Subscriber ID:[id number] Payer ID:Not on file Group ID:Not on file Type:Medicare Address: [address] MED[address] - OUT OF STATE MEDICARE Member Subscriber Plan / Payer (Ef fective 2004-Present) Name:Emily Ibrahim R Member ID:[id number] Relation to Subscriber:Self Name:EMILY IBRAHIM Subscriber ID:[id number] Payer ID:Not on file Group ID:Not on file Type:Medicare Address: [address] MEDICAID - OUT OF [facility] MEDICARE Member Subscriber Plan / Payer (Ef fective 2004-Present) Name:Emily Ibrahim R Member ID:[id number] Relation to Subscriber:Self Name:EMILY IBRAHIM Subscriber ID:[id number] Payer ID:Not on file Group ID:Not on file Type:Medicare Address: [address] MED[address]ID - OUT OF STATE MEDICARE MEDICAID - OUT OF STATE MEDICARE MEDICAID - OUT OF STATE MEDICARE Member Subscriber Plan / Payer (Ef fective 2004-Present) Name:Patrice Emily R Member ID:[id number] Relation to Subscriber:Self Name:PATRICEEMILY Laura Subscriber ID:[id number] Payer ID:Not on file Group ID:Not on file Type:Medicare Address: [place] [id number] MEDICAID - OUT OF STATE MEDICARE MEDICAID - OUT OF STATE MEDICARE MEDICAID - OUT OF STATE MEDICARE MEDICAID - OUT OF STATE MEDICARE MEDICAID - OUT OF STATE MEDICARE Member Subscriber Plan / Payer (Ef fective 2004-Present) Name:Patrice Emily R Member ID:[id number] Relation to Subscriber:Self Name:EMILY IBRAHIM Laura Subscriber ID:[id number] Payer ID:Not on file Group ID:Not on file Type:Medicare Address: [address] MEDICAID - OUT OF STATE MEDICARE MEDICAID - OUT OF STATE MEDICARE MEDICAID - OUT OF STATE MEDICARE MEDICAID - OUT OF STATE Advance Directives * Full Code (Latest Code Status on File) Date Activated Date Inactivated Comments 10/05/2023 4:23 AM 10/19/2023 12:09 PM * Full Code Date Activated Date Inactivated Comments 06/24/2023 1:39 AM 07/01/2023 2:25 PM * Full Code Date Activated Date Inactivated Comments 09/08/2022 9:35 AM 09/12/2022 6:44 PM * Full Code Date Activated Date Inactivated Comments 10/31/2020 9:42 AM 11/02/2020 2:46 PM * Full Code Date Activated Date Inactivated Comments 10/22/2020 4:43 PM 10/23/2020 5:25 PM Care Teams Checker In Relationship Specialty Start Date End Date Reyes Motley DO [address] [phone] PCP - General Family Medicine 10/22/20 Drew Cope MD [address] [phone] Internal Medicine 10/22/20
--- OUTSIDE RECORDS SUMMARY | 2025-03-10 07:39 | XMS_ITS | Clinical Summary ---
Author Organization [facility] Address [address] [place] [address] Care Team Providers Care Museum Specialist Name Role Phone Tomas Hopkins MD Unavailable [phone] Reyes Motley DO Primary Care Provide r Allergies Active Allergy Reactions Criticality Noted Date Comments Celecoxib Nausea Only Low 06/21/2017 Cephalexin Nausea and Vomiting 11/01/2020 Ciprofloxacin Vomiting 06/06/2020 Iodine Unknown,Vomiting Low 10/27/2015 Losartan Anxiety,Nausea and Vomiting,Vomiting Low 04/29/2020 Penicillins Nausea and Vomiting 02/06/2019 Shellfish Allergy Unknown 10/31/2020 Shellfish-Derived Products Hives 9 Sulfa Antibiotics Nausea Only 02/06/2019 Trimethoprim Other (see comment) Low 05/05/2020 Medications famotidine 20 MG tablet Take 1 tablet (20 mg total) by mouth 2 (two) times daily. 10/27/19 16 Active allopurinol 100 MG tablet Take 2 tablets (200 mg total) by mouth daily. Active nitroglycerin 0.[address] 1 tablet (0.4 mg total) under the tongue every 5 (five) minutes as needed for Chest Pain. 60 tablet 08/05/20 19 Active amLODIPine 10 MG tablet Take 1 tablet (10 mg total) by mouth daily. 30 tablet 3 10/18/19 21 Active albuterol sulfate HFA 108 (90 Base) MCG/ACT inhaler Inhale 2 puffs into the lungs every 4 (four) hours as needed for Shortness of breath. 08/19/20 24 Active SYMBICORT 80-4.5 MCG/ACT inhaler Inhale 2 puffs into the lungs 2 (two) times daily. 09/04/19 25 Active montelukast (SINGULAIR) 10 MG tablet Take 1 tablet (10 mg total) by mouth nightly. Active benzonatate (TESSALON) 100 MG capsule Take 1 capsule (100 mg total) by mouth 3 (three) times daily as needed for Cough. Active oxyCODONE immediate release (ROXICODONE) 5 MG immediate release tabletIndications: Chronic Pain Take 1 tablet (5 mg total) by mouth every 12 (twelve) hours as needed. Indications: Chronic Pain 20 tablet 09/12/19 25 Active Additional Information Patient taking differently:5 mg Oral Every 12 hours PRN,Pain, Indications: Chronic Pain, Reported on 09/18/2024 ondansetron (ZOFRAN-ODT) 4 MG disintegrating tablet Take 1 tablet (4 mg total) by mouth every 8 (eight) hours as needed for Nausea. 20 tablet 09/12/19 25 Active polyethylene glycol (GLYCOLAX) packet Take 240 mLs (17 g total) by mouth daily as needed for Constipation. Dissolve powder in 240 mL water Active Active Problems Problem Noted Date Diagnosed Date Bacteremia 09/13/2024 End stage renal disease ([facility]) 2021 Overview (09/05/2023): Added automatically from request for surgery [id number] Last Assessment & Plan: History of end-stage renal disease currently on [...] with a routine left upper extremity duplex CVA (cerebral vascular accident) ([facility]) 09/23/2021 ICH (intracerebral hemorrhage) ([facility]) 10/14/2020 Pyelonephritis 06/07/2020 AMINA (acute kidney injury) 04/28/2020 Overview (06/07/2020): Last Assessment & Plan: AMINA on CKD (baseline 1.8-1.9) - IVF - CTM 04/29: Cr downtrending, close to baseline. Discharge today, follow up with PCP Atherosclerosis of coronary artery 04/28/2020 Overview (06/07/2020): Last Assessment & Plan: - ASA, atorva Edema of both lower extremit ies due to peripheral venous insufficiency 04/27/2020 History of cerebrovascular accident 04/27/2020 Obstructive sleep apnea syndrome 04/27/2020 Overactive bladder 04/27/2020 Leg cramps 04/27/2020 Anemia 02/26/2020 Secondary hyperparathyroidism ([facility]) 02/26/20 20 Diabetic nephropathy ([facility]) 0 Benign hypertensive kidney d isease with chronic kidney disease stage I through stage IV, or unspecified(403.10) 10/07/2019 CRD (chronic renal disease), stage III 0 SBO (small bowel obstruction) ([facility]) 08/14/2019 Overview (04/27/2020): Last Assessment & Plan: Admitted with SBO confirmed by OSH CT [...] or concerns. UTI (urinary tract infection) 08/14/2019 Overview (06/07/2020): Last Assessment & Plan: - UA+ 04/27 - Cipro x 3 days, 1 x dose in ED->Hives->ceftriaxone - F/U cx 04/29: Susceptible to Macrobid, received 2 doses of CTX, discharge with Macrobid to complete treatment course Type 2 DM with CKD and hypertension 08/14/2019 Overview (06/07/2020): Last Assessment & Plan: - Holding home glimeperide, metformin - SSI - A1C 7.2 Partial small bowel obstruction ([facility] ) 08/14/2019 Overview (06/07/2020): Last Assessment & Plan: - in setting of ventral hernia, chronic [...] candidate for operative repair of her hernias. Chest pain 08/05/2019 Chest pain as manifestation of blood transfusion reaction 08/05/2019 Iron deficiency anemia, unspecified 02/06/2019 Edema 11/21/2018 Hemiparesis affecting right side as late effect of stroke ([facility]) 06/10/2018 Hypertension 06/10/2018 Overview (06/07/2020): Last Assessment & Plan: - Home regimen: Amlodipine 5mg every day, HCTZ 25mg every day, valsartan 160mg every day - Restarted Amlodipine - Hydralazine 10mg IV PRN for SBP >160 04/29: Restarted home antihypertensives at discharge Multiple nodules of lung 05/07/2018 Incontinence of feces 03/28/2018 Arthropathy of spinal facet joint 06/21/2017 Constipation 06/21/2017 Hyperuricemia 06/21/2017 Morbid obesity 06/21/2017 Osteoarthrosis 06/21/2017 Nodular goiter 06/15/2017 Gastroesophageal reflux disease 10/27/2015 Hyperlipemia 10/27/2015 Hypertension 10/27/2015 Overview (04/27/2020): Last Assessment & Plan: Blood pressure is above her target this morning, however she reports that overall it is much better control. I am not going to make any changes in her medicines but have asked her to monitor and report. She has room for increase on both the valsartan and the amlodipine if needed. She was encouraged to maintain lifestyle modifications. Type 2 DM with CKD and hypertension 10/27/2015 Overview (04/27/2020): Last Assessment & Plan: She will continue to follow with her primary care physician and poured pipe maker for the diabetes and CKD. I will obtain a copy of her last lab results. Of note, if her creatinine has remained elevated she should likely not remain on the metformin. Open wound of anterior abdominal wall 12/24/2014 Infection following procedure 09/28/2014 Peritoneal abscess ([facility]) 09/28/2014 Ventral hernia without obstruction or gangrene 0 09/24/2014 Stroke ([facility]) Hyperlipidemia Diabetes mellitus ([facility]) Family History Medical History Relation Comments Coronary artery disease Father Relation Status Comments Father Social History Tobacco Use Types Packs/Day Years Used Date Smoking Tobacco: Former Cigarettes 1 20 0 02/06/1994 - 02/06/2014 Smokeless Tobacco: Never Alcohol Use Standard Drinks/Week Comments No 0 (1 standard drink = 0.6 oz pur e alcohol) B1300 Health Literacy Answer Date Recor ded How often do you need to hav e someone help you when you read instructions, pamphlets, or other written material from your doctor or pharmacy? Sometimes 09/10/2024 [facility] Utilities Answer Date Recorded In the past 12 months has th e [employer], gas, oil, or water company threatened to shut off services in your home? No 09/13/2024 Humiliation, Afraid, Rape, and Kick questionnair e Answer Date Recorded Within the last year, have y ou been afraid of your partner or ex-partner? No 09/13/2024 Within the last year, have y ou been humiliated or emotionally abused in other ways by your partner or ex-partner? No Within the last year, have y ou been kicked, hit, slapped, or otherwise physically hurt by your partner or ex-partner? No 09/13/2024 Within the last year, have y ou been raped or forced to have any kind of sexual activity by your partner or ex-partner? No 09/13/2024 Social Connection and Isolat ion Panel [NHANES] Answer Date Recorded In a typical week, how many times do you talk on the phone with family, friends, or neighbors? Twice a week 09/10/2024 How often do you get togethe r with friends or relatives? Twice a week 09/10/2024 How often do you attend chur ch or catholic services? More than 4 times per year 09/10/2024 Do you belong to any clubs o r organizations such as samaritan groups, unions, fraternal or athletic groups, or school groups? Yes 09/10/2024 How often do you attend meet ings of the clubs or organizations you belong to? More than 4 times per year 09/10/2024 Are you , , di vorced, , never , or living with a partner? 09/10/2024 AUDIT-C Answer Date Recorded Q1: How often do you have a drink containing alcohol? Never 09/10/2024 Q2: How many drinks containi ng alcohol do you have on a typical day when you are drinking? Patient does not drink Q3: How often do you have si x or more drinks on one occasion? Never 09/10/2024 Overall Financial Resource Strain (CARDIA) Answe r Date Recorded How hard is it for you to pa y for the very basics like food, housing, medical care, and heating? Somewhat hard 09/13/2024 [facility] - Occupational Stress Questionnaire Answer Date Recorded Do you feel stress - tense, restless, nervous, or anxious, or unable to sleep at night because your mind is troubled all the time - these days? Not at all 09/10/2024 Exercise Vital Sign Answer Date Recorde d On average, how many days pe r week do you engage in moderate to strenuous exercise (like a brisk walk)? 0 days 09/10/2024 On average, how many minutes do you engage in exercise at this level? 0 min 09/10/2024 Hunger Vital Sign Answer Date Recorded Within the past 12 months, y ou worried that your food would run out before you got the money to buy more. Never true 09/13/19 25 Within the past 12 months, t he food you bought just didn't last and you didn't have money to get more. Never true 09/13/2024 PRAPARE - Transportation Answer Date Re corded In the past 12 months, has l ack of transportation kept you from medical appointments or from getting medications? No 08/28 In the past 12 months, has l ack of transportation kept you from meetings, work, or from getting things needed for daily living? No 09/13/2024 Housing Stability Vital Sign Answer Ole e Recorded In the last 12 months, was t here a time when you were not able to pay the mortgage or rent on time? No 09/13/2024 In the past 12 months, how m any times have you moved where you were living? 0 09/13/2024 At any time in the past 12 m [facility], were you homeless or living in a chcf (including now)? No 09/13/2024 Comments No Sex and Gender Information Value Date Recorded Sex Assigned at Female 09/10/2024 8:16 AM ANODIZER Legal Sex Female 9:22 PM CDT Gender Identity Not on file Sexual Orientation Not on file Last Filed Vital Signs Vital Sign Reading Time Taken Comments Blood Pressure 141/70 09/18/2024 8:48 AM ANODIZER Pulse 94 09/18/2024 8:48 AM ANODIZER Temperature 36.6 C (97.9 F) 09/18/2024 8:48 AM ANODIZER Respiratory Rate 18 09/18/2024 8:48 AM ANODIZER Oxygen Saturation 99% 09/18/2024 8:48 AM ANODIZER Inhaled Oxygen Concentration - - Weight 108.9 kg (240 lb 1.3 oz) 09/18/2024 8:48 AM ANODIZER Height 157.5 cm (5' 2) 09/18/2024 8:48 AM ANODIZER Body Mass Index 43.91 09/18/2024 8:48 AM ANODIZER Plan of Treatment Upcoming Encounters Date Type Department Care Team (Late st Contact Info) Description 03/12/2025 9:20 AM CDT Office Visit [facility] Multispecialty Care - [facility] [address], [address] [place] [address] Conchis Lopez MD [address] [place] [address] Health Maintenance Due Date Last Done Comments Diabetes: Retinopathy Eye Exam 1976 Zoster Vaccines (1 of 2) 2008 DTaP, Tdap and Td Vaccines (1 - Tdap) 09/20/2014 09/19/2014, 09/19/2014 RSV Immunization or 60+ Years (1 - Risk 60-74 years 1-dose series) 2018 ASCVD LDL 09/24/2022 09/24/2021, 09/28, 10/14/2020, Additional history exists Pneumococcal Vaccine: 50+ Years (2 of 2 - PCV) 03/07/2023 03/07/2022 Annual Medicare Wellness Visit 10/30/2023 Dexa Scan (General) 10/30/2023 Hemoglobin A1C 04/04/2024 10/05/2023, 03/28, 09/07/2022, Additional history exists Lipid Panel 04/13/2024 04/13/2023, 08/28, 09/24/2021, Additional history exists COVID-19 Vaccine ( - 2023- season) 2024 Lung Cancer Screening 05/02/2025 05/02/2024 , 04/13/2023, 05/05/2018 Mammogram Screening 05/13/2025 05/13/2023, 05/10/2021, 02/19/2019 Colorectal Cancer Screening Colonoscopy (10 Years) 04/10/2029 04/10/2019 Hepatitis C Completed 10/06/2023, 03/28, 04/13/2023, Additional history exists Meningococcal B Vaccine Aged Out No l onger eligible based on patient's age to complete this topic Meningococcal Vaccine Aged Out No marco subha eligible based on patient's age to complete this topic RSV Immunizations Under 20 Months Aged Out No longer eligible based on patient's age to complete this topic Goals Goal Patient Goal Type Associated Problems Recent Progress Patient-Stated? Author Patient will return to prior living situation and remain independent in ADLs upon discharge from hospital General Mary Desai, pipe foreman - family caregiver with be involved in care transitions and discharge planning Lifestyle Mendel Worrell, RN Interventions Community Resource Recommendations Community Resource Services Recommended Domains Addressed Status Status Reason/Outcome Date/Time [facility] Financial Assistance Financial Resource Strain 09/10/2024 7:45 AM ANODIZER from Last 12 Months Procedures Procedure Name Priority Date/Time Associated Diagnosis Comments CT CHEST WO CON Routine 05/02/2024 2:16 PM CDT Subacute cough MG SCREENING W GARIMA REBECCA DIGI Routine 05/13/2023 12:53 PM CDT Encounter for screening mammogram for malignant neoplasm of breast LIPID PANEL STAT 09/24/2021 5:02 AM ANODIZER HEMOGLOBIN, GLYCOSYLATED Routine 09/23/2021 8:40 PM ANODIZER COLONOSCOPY Routine 04/10/2019 6:32 AM CDT from Last 3 Months or Most Recently Relevant to Health Maintenance Results * CT CHEST WO CON (05/02/2024 2:16 PM CDT) Anatomical Region Laterality Modality Chest Computed Tomogra phy 05/08/2024 10:4 1 AM CDT Impressions 05/08/2024 11:01 AM CDT IMPRESSION: 1. No acute or suspicious findings. 2. Atherosclerosis and coronary calcifications. 3. Calcified granulomas indicate healed granulomatous disease. Referred By: REYES MOTLEY Interpreted By: Noe Teran MD, 05/08/2024 10:41 AM Narrative 05/08/2024 11:01 AM CDT [address] [address] EXAMINATION: CT CHEST WITHOUT CONTRAST EXAM DATE/TIME: 05/02/2024 2:09 PM REASON FOR EXAM: Cough COMPARISON: None TECHNIQUE: Computed tomography was performed of the chest without intravenous contrast. Dose lowering technique was used for this study which may include, but is not limited to, dose reduction techniques, automated exposure control, use of iterative reconstruction and ALARA (As low As Reasonably Achievable)/Image Gently techniques. FINDINGS: Calcified granulomas indicate healed granulomatous disease. No pneumothorax or pleural effusion. Airways within normal limits. On soft tissue windows, no axillary or supraclavicular lymphadenopathy. Mediastinum: Heart size normal. No pericardial effusion. Small hiatal hernia. Coronary calcifications and atherosclerosis. No mediastinal or hilar lymphadenopathy. Limited evaluation of the upper abdomen demonstrates no acute or suspicious findings. Bones: No suspicious skeletal lesion or evidence of fracture. Moderate degenerative changes of the spine. Procedure Note Noe Teran MD - 05/08/[address] [address] EXAMINATION: CT CHEST WITHOUT CONTRAST EXAM DATE/TIME: 05/02/2024 2:09 PM REASON FOR EXAM: Cough COMPARISON: None TECHNIQUE: Computed tomography was performed of the chest withoutintravenous contrast. Dose lowering technique was used for this study which may include, but isnot limited to, dose reduction techniques, automated exposure control, use of iterativereconstruction and ALARA (As low As Reasonably Achievable)/Image Gently techniques. FINDINGS: Calcified granulomas indicate healed granulomatous disease. No pneumothorax or pleural effusion. Airways within normal limits. On soft tissue windows, no axillary or supraclavicular lymphadenopathy. Mediastinum: Heart size normal. No pericardial effusion. Small hiatal hernia. Coronary calcifications and atherosclerosis. No mediastinal or hilar lymphadenopathy. Limited evaluation of the upper abdomen demonstrates no acute orsuspicious findings. Bones: No suspicious skeletal lesion or evidence of fracture. Moderatedegenerative changes of the spine. IMPRESSION: 1. No acute or suspicious findings. 2. Atherosclerosis and coronary calcifications. 3. Calcified granulomas indicate healed granulomatous disease. Referred By: REYES MOTLEY Interpreted By: Noe Teran MD, 05/08/2024 10:41 AM Reyes Motley DO CT Final Result * MG SCREENING W GARIMA REBECCA DIGI (05/13/2023 12:53 PM CDT) Anatomical Region Laterality Modality Breast Bilateral Mammography 05/15/2023 6:49 AM CDT Narrative 05/15/2023 6:50 AM CDT Examination: Digital bilateral screening mammogram with 3D Tomosynthesis Exam Date/Time: 05/13/2023 12:14 PM Reason For Exam: screening No prior breast procedures. No personal or family history of breast cancer. No current complaints. 70 pound weight loss since prior mammogram. Comparison: Mammograms from 05/10/2021 02/19/2019 Technique: Digital screening mammography of both breasts was performed in addition to 3-D Tomosynthesis technique. This study was read with the assistance of a computer-aided detection system. Tissue density: There are scattered areas of fibroglandular density. Findings: Scattered benign tiny rounded calcifications bilaterally. Benign vascular calcifications. Overall parenchymal pattern unchanged from prior studies. There is no new focal asymmetry, dominant mass lesion, area of skin thickening, or cluster of suspicious appearing calcifications in either breast to suggest malignancy. ===== IMPRESSION: ===== 1. Stable mammographic appearance with no new findings to suggest malignancy in either breast. Assessment: ACR BI-RADS 2 - BENIGN FINDING(S) Recommendation: 1:Routine Screening Bilateral Comments: Ordered By: REYES MOTLEY Interpreted By: Walker Perera MD, 05/15/2023 6:49 AM Reyes Motley DO MAMMO Final Result * (ABNORMAL) LIPID PANEL (09/24/2021 5:02 AM ANODIZER) CHOLESTEROL 143 <200 MG/DL 09/24/2021 5:42 AM [facility] TRIGLYCERIDES 160(H) <150 MG/DL 09/24/2021 5:42 AM [facility] HDL 33(L) >40.0 MG/DL 09/24/2021 5:42 AM [facility] LDL (CALCULATED) 78 <100 MG/DL 09/24/2021 5:42 AM [facility] NON HDL CHOLESTEROL 110 <130 MG/DL 09/24/2021 5:42 AM [facility] CHOL/HDL RATIO 4.3 0.0 - 4.5 09/24/2021 5:42 AM [facility] VLDL CALCULATION 32 5 - 55 MG/DL 09/24/2021 5:42 AM [facility] LIPID INTERPRETATION 09/24/2021 5:42 AM [facility] Comment: NIH CONCENSUS REPORT RECOMMENDATIONS: ADULT CHILD LOW RISK: CHOLESTEROL <200 <170 TRIGLYCERIDE <150 --- HDL >=60 --- LDL <100 <110 BORDERLINE: CHOLESTEROL 200-239 170-199 TRIGLYCERIDE 150-199 --- HDL 40-59 --- LDL 100-159 110-129 HIGH RISK: CHOLESTEROL >=240 >=200 TRIGLYCERIDE >=200 --- HDL <40 --- LDL >=160 >=130 09/24/2021 5:02 AM ANODIZER Lu Mai MD LABORATORY Final Re sult [facility] [address] [place] [address], [place] [phone] * (ABNORMAL) HEMOGLOBIN, GLYCATED (09/23/2021 8:40 PM ANODIZER) HGB A1C 8.4(H) <5.7 % 09/24/2021 1:30 AM ANODIZER [facility] Comment: ADA GUIDELINES 2010 5.7 TO 6.4% INCREASED RISK OF DIABETES > OR = 6.5% CONSISTENT WITH DIABETES ESTIMATED AVG GLUCOSE 194 mg/dL 09/24/2021 1:30 AM ANODIZER [facility] 09/23/2021 8:40 PM ANODIZER Lu Mai MD LABORATORY Final Re sult [facility] [address] [place] [address], from Last 3 Months or Most Recently Relevant to Health Maintenance Insurance MEDICAID [facility] MEDICAID Advance Directives Documents on File Type Date Recorded Patient Perioperative Nurse Expl anation Advance Directives and Living Will 06/09/2020 11:24 AM 06/08/20 POA FOR HEALTH CARE * Full Code (Latest Code Status on File) Date Activated Date Inactivated Comments 09/13/2024 6:32 PM 09/15/2024 1:11 PM * Full Code Date Activated Date Inactivated Comments 09/09/2024 4:02 PM 09/12/2024 3:01 PM * Full Code Date Activated Date Inactivated Comments 09/24/2021 12:00 AM 09/25/2021 5:36 PM * Full Code Date Activated Date Inactivated Comments 10/14/2020 11:52 AM 10/17/2020 8:13 PM * Full Code Date Activated Date Inactivated Comments 06/07/2020 7:48 AM 06/08/2020 7:14 PM Care Teams Museum Specialist Relationship Specialty [place] [address] [place] [address] [phone] PCP - General FAMILY PRACTICE 11/11/20 Tomas Hopkins MD [facility]. [address] [place] [address] [employer] Supervisor CARDIOVASCULAR DISEASE 09/10/19
--- OUTSIDE RECORDS SUMMARY | 2025-03-10 07:40 | XMS_ITS ---
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 Role Phone Unavailable Unavailable Unavailable Allergies, Adverse Reactions, Alerts Allergy Name Allergy Type Status Severity Reaction(s) Onset Date Inactive Date Treating Clinician Comments Losartan Allergy Active Unknown 09-14 18:07: 04 Iodine I 131 Tositumomab Allergy Active Unknown 09-14 18:06: 38 Ciprofloxacin Allergy Active Unknown 09-14 18:06: 23 Trimethoprim Allergy Active Unknown 09-14 18:05: 47 Shellfish-deriv ed Products Allergy Active Unknown 09-14 18:02: 00 Sulfa Antibiotics Allergy Active Unknown 09-14 18:01: 47 Celecoxib Allergy Active Unknown 09-14 18:01: 21 Cephalexin Allergy Active Unknown 09-14 18:01: 06 Penicillins Allergy Active Unknown 09-14 18:00: 43 Medications Ordered Medication Name Filled Medication Name Start Date Stop Date Current Medication? Ordering Clinician Indication Dosage Frequency Signature (SIG) Comments Components Mircera 02-20 14:52: 49 Yes [id number] Number of Repeats Allowed: Frequency: KIRA dosing, every two weeks calcitriol 02-20 14:52: 48 Yes [id number] Number of Repeats Allowed: Frequency: Three times a week ondansetron hydrochlori de 02-20 14:52: 42 Yes [id number] Number of Repeats Allowed: Frequency: Every 4 hours as needed Normal Saline Solution 0.9% NaCl 02-20 14:52: 41 Yes [id number] Number of Repeats Allowed: Frequency: As needed loperamide hydrochlori de 02-20 14:52: 40 Yes [id number] Number of Repeats Allowed: Frequency: Every 4 hours as needed Insta-Gluco se 02-20 14:52: 39 Yes [id number] Number of Repeats Allowed: Frequency: Every 30 minutes as needed diphenhydra mine hydrochlori de 02-20 14:52: 38 Yes [id number] Number of Repeats Allowed: Frequency: Every 4 hours as needed acetaminoph en 02-20 14:52: 37 Yes [id number] Number of Repeats Allowed: Frequency: Every 4 hours as needed heparin sodium, porcine 09-19 16:28: 31 Yes [id number] Number of Repeats Allowed: Frequency: Every Dialysis TreatmentD osesOrdere d: Loading Dose 2000 Units 1:1000 Units/mLRo [place]: Intravenou s heparin sodium, porcine 09-19 16:28: 05 Yes [id number] Number of Repeats Allowed: Frequency: Every Dialysis TreatmentD osesOrdere d: Hourly Dose 800 Units/Hr 1:1000 Units/mLRo [place]: Intravenou s Antacid Extra Strength 09-13 21:14: 36 Yes [id number] Number of Repeats Allowed: Frequency: Every 4 hours as needed Problems This patient has no known problems. Procedures Procedure Date / Time Performed Performing Clinician Estrellita ce Details AV Graft 2022-01-26 05:00:00 Access Site Upper Arm (Left) Access Use Start Date 2023-09-27 06:00:0 0 DIALYSIS TREATMENT INFORMATION Conventional Hemodialysis Date Type Treatment Start Date Treatment End Date Pre-Treatment Vitals Post-Treatment Vitals Weight Gain BFR DFR Actual UF Dialysis Access March 10, 2025 In-Ce nter Hemod ialys is Treat ment 450 mL/min 500 mL/min March 07, 2025 In-Ce nter Hemod ialys is Treat ment 2025-03-07 T11:05:50. 000Z 2025-03-07 T14:37:50. 000Z BP Sitting (Pre-Dialysis) 164/106 mmHg BP Sitting (Post-D ialysis ) 154/ 67 mmHg Sitting Heart Rate Pre-Dialysis 84 BPM Sitting H eart Rate Post-Dialysis 82 BPM Temperature Pre-Dialysis 98.2 degF Temperature Post -Dialysis 98 degF March 05, 2025 In-Center Hemodialysis Treatment 0700-74-37J70:39:17.000Z 2386-06-69Q22:34:17.000Z BP Sitting (Pre-Dialysis) 201/80 mmHg BP Sitting (Post-Dialysis) 164/78 mmHg Concurrent Access: falseAV Graft Upper Arm (Left) Arterial Sitting Heart Rate Pre-Dialysis 87 BPM Sitting H eart Rate Post-Dialysis 83 BPM Temperature Pre-Dialysis 98.2 degF Temperature Post -Dialysis 97.8 degF March 03, 2025 In-Center Hemodialysis Treatment 6739-89-87H58:54:44.000Z 1402-71-29X43:26:45.000Z BP Sitting (Pre-Dialysis) 197/102 mmHg BP Sitting (Post-Dialysis) 183/93 mmHg Concurrent Access: falseAV Graft Upper Arm (Left) Arterial Sitting Heart Rate Pre-Dialysis 97 BPM Sitting H eart Rate Post-Dialysis 92 BPM Temperature Pre-Dialysis 97.2 degF Temperature Post -Dialysis 97.9 degF February 28, 2025 In-Center Hemodialysis Treatment 4918-73-96E05:00:56.000Z 4355-57-73K44:24:56.000Z BP Sitting (Pre-Dialysis) 166/98 mmHg BP Sitting (Post-Dialysis) 138/97 mmHg Concurrent Access: falseAV Graft Upper Arm (Left) Arterial Sitting Heart Rate Pre-Dialysis 91 BPM Sitting H eart Rate Post-Dialysis 89 BPM Temperature Pre-Dialysis 97.6 degF Temperature Post -Dialysis 97.6 degF February 24, 2025 In-Center Hemodialysis Treatment 8544-99-92C01:49:00.000Z 3366-36-17K67:12:51.000Z BP Sitting (Pre-Dialysis) 140/101 mmHg BP Sitting (Post-Dialysis) 167/80 mmHg Concurrent Access: falseAV Graft Upper Arm (Left) Arterial Sitting Heart Rate Pre-Dialysis 78 BPM Sitting H eart Rate Post-Dialysis 89 BPM Temperature Pre-Dialysis 97.9 degF Temperature Post -Dialysis 97.8 degF February 21, 2025 In-Center Hemodialysis Treatment 0502-05-39R78:46:00.000Z 0972-55-73E09:19:02.000Z BP Sitting (Pre-Dialysis) 160/93 mmHg BP Sitting (Post-Dialysis) 133/92 mmHg Concurrent Access: falseAV Graft Upper Arm (Left) Arterial Sitting Heart Rate Pre-Dialysis 96 BPM Sitting H eart Rate Post-Dialysis 65 BPM Temperature Pre-Dialysis 97.9 degF Temperature Post -Dialysis 97.4 degF February 19, 2025 In-Center Hemodialysis Treatment 5931-85-71M75:29:29.000Z 0434-48-40G74:43:30.000Z BP Sitting (Pre-Dialysis) 153/133 mmHg BP Sitting (Post-Dialysis) 154/87 mmHg Concurrent Access: falseAV Graft Upper Arm (Left) Arterial Sitting Heart Rate Pre-Dialysis 81 BPM Sitting H eart Rate Post-Dialysis 84 BPM Temperature Pre-Dialysis 98.1 degF Temperature Post -Dialysis 97.8 degF February 17, 2025 In-Center Hemodialysis Treatment 2568-16-22T77:27:00.000Z 6379-43-58Q95:12:15.000Z BP Sitting (Pre-Dialysis) 184/94 mmHg BP Sitting (Post-Dialysis) 128/78 mmHg Concurrent Access: falseAV Graft Upper Arm (Left) Arterial Sitting Heart Rate Pre-Dialysis 86 BPM Sitting H eart Rate Post-Dialysis 84 BPM Temperature Pre-Dialysis 97.3 degF Temperature Post -Dialysis 97.5 degF February 14, 2025 In-Center Hemodialysis Treatment 2717-63-08R31:52:00.000Z 1202-14-07B96:21:35.000Z BP Sitting (Pre-Dialysis) 172/83 mmHg BP Sitting (Post-Dialysis) 128/57 mmHg Concurrent Access: falseAV Graft Upper Arm (Left) Arterial Sitting Heart Rate Pre-Dialysis 88 BPM Sitting H eart Rate Post-Dialysis 65 BPM Temperature Pre-Dialysis 97.5 degF Temperature Post -Dialysis 97.6 degF February 12, 2025 In-Center Hemodialysis Treatment 4607-93-49F03:18:42.000Z 7828-96-77Y26:21:29.000Z BP Sitting (Pre-Dialysis) 179/88 mmHg BP Sitting (Post-Dialysis) 106/69 mmHg Concurrent Access: falseAV Graft Upper Arm (Left) Arterial Sitting Heart Rate Pre-Dialysis 87 BPM Sitting H eart Rate Post-Dialysis 85 BPM Temperature Pre-Dialysis 97.9 degF Temperature Post -Dialysis 97.5 degF February 10, 2025 In-Center Hemodialysis Treatment 9978-72-82P28:50:09.000Z 5813-59-72P87:06:07.000Z BP Sitting (Pre-Dialysis) 174/86 mmHg BP Sitting (Post-Dialysis) 159/97 mmHg Concurrent Access: falseAV Graft Upper Arm (Left) Arterial Sitting Heart Rate Pre-Dialysis 96 BPM Sitting H eart Rate Post-Dialysis 78 BPM Temperature Pre-Dialysis 98.1 degF February 07, 2025 In-Center Hemodialysis Treatment 5545-81-49D78:56:15.000Z 7093-01-85A68:33:48.000Z BP Sitting (Pre-Dialysis) 186/88 mmHg BP Sitting (Post-Dialysis) 157/98 mmHg Concurrent Access: falseAV Graft Upper Arm (Left) Arterial Sitting Heart Rate Pre-Dialysis 85 BPM Sitting H eart Rate Post-Dialysis 78 BPM Temperature Pre-Dialysis 98.2 degF Temperature Post -Dialysis 98 degF February 05, 2025 In-Center Hemodialysis Treatment 3517-91-32U22:47:59.000Z 0499-77-86K66:17:59.000Z BP Sitting (Pre-Dialysis) 144/57 mmHg BP Sitting (Post-Dialysis) 157/59 mmHg Concurrent Access: falseAV Graft Upper Arm (Left) Arterial Sitting Heart Rate Pre-Dialysis 76 BPM Sitting H eart Rate Post-Dialysis 78 BPM Temperature Pre-Dialysis 97.2 degF Temperature Post -Dialysis 97.1 degF February 03, 2025 In-Center Hemodialysis Treatment 5253-58-68P67:21:26.000Z 8975-72-42K87:53:26.000Z BP Sitting (Pre-Dialysis) 182/73 mmHg BP Sitting (Post-Dialysis) 118/65 mmHg Concurrent Access: falseAV Graft Upper Arm (Left) Arterial Sitting Heart Rate Pre-Dialysis 89 BPM Sitting H eart Rate Post-Dialysis 87 BPM Temperature Pre-Dialysis 97 degF Temperature Post -Dialysis 97.1 degF January 31, 2025 In-Center Hemodialysis Treatment 7645-68-71W38:53:37.000Z 7824-85-72M97:24:38.000Z BP Sitting (Pre-Dialysis) 186/72 mmHg BP Sitting (Post-Dialysis) 155/70 mmHg Concurrent Access: falseAV Graft Upper Arm (Left) Arterial Sitting Heart Rate Pre-Dialysis 101 BPM Sitting H eart Rate Post-Dialysis 90 BPM Temperature Pre-Dialysis 98 degF Temperature Post -Dialysis 98 degF January 29, 2025 In-Center Hemodialysis Treatment 3197-42-78L16:53:05.000Z 1501-37-24S13:24:05.000Z BP Sitting (Pre-Dialysis) 161/67 mmHg BP Sitting (Post-Dialysis) 151/75 mmHg Concurrent Access: falseAV Graft Upper Arm (Left) Arterial Sitting Heart Rate Pre-Dialysis 104 BPM Sitting H eart Rate Post-Dialysis 91 BPM Temperature Pre-Dialysis 97.7 degF Temperature Post -Dialysis 98 degF January 27, 2025 In-Center Hemodialysis Treatment 5865-11-83U97:26:52.000Z 1307-60-31S15:58:52.000Z BP Sitting (Pre-Dialysis) 176/80 mmHg BP Sitting (Post-Dialysis) 168/77 mmHg Concurrent Access: falseAV Graft Upper Arm (Left) Arterial Sitting Heart Rate Pre-Dialysis 102 BPM Sitting H eart Rate Post-Dialysis 94 BPM Temperature Pre-Dialysis 97.8 degF Temperature Post -Dialysis 97.7 degF January 20, 2025 In-Center Hemodialysis Treatment 8723-52-56A81:45:52.000Z 7720-20-05D71:19:53.000Z BP Sitting (Pre-Dialysis) 126/67 mmHg BP Sitting (Post-Dialysis) 170/80 mmHg Concurrent Access: falseAV Graft Upper Arm (Left) Arterial Sitting Heart Rate Pre-Dialysis 77 BPM Sitting H eart Rate Post-Dialysis 83 BPM Temperature Pre-Dialysis 97.6 degF Temperature Post -Dialysis 97.9 degF January 17, 2025 In-Center Hemodialysis Treatment 6983-09-98F65:54:04.000Z 3992-15-06E80:26:04.000Z BP Sitting (Pre-Dialysis) 158/68 mmHg BP Sitting (Post-Dialysis) 156/76 mmHg Concurrent Access: falseAV Graft Upper Arm (Left) Arterial BP Standing (Pre-Dialysis) 175/78 mmHg Sitting Heart Rate Post-Dialysis 87 BPM Sitting Heart Rate Pre-Dialysis 86 BPM Temperatu re Post-Dialysis 98 degF Standing Heart Rate Pre-Dialysis 95 BPM Temperature Pre-Dialysis 98.4 degF January 15, 2025 In-Center Hemodialysis Treatment 1473-94-42X42:49:31.000Z 9388-66-99V98:22:31.000Z BP Sitting (Pre-Dialysis) 196/69 mmHg BP Sitting (Post-Dialysis) 130/69 mmHg Concurrent Access: falseAV Graft Upper Arm (Left) Arterial Sitting Heart Rate Pre-Dialysis 84 BPM Sitting H eart Rate Post-Dialysis 84 BPM Temperature Pre-Dialysis 98.2 degF Temperature Post -Dialysis 98.2 degF January 13, 2025 In-Center Hemodialysis Treatment 0774-22-88T21:55:00.000Z 3595-48-53H43:22:58.000Z BP Sitting (Pre-Dialysis) 180/75 mmHg BP Sitting (Post-Dialysis) 135/68 mmHg Concurrent Access: falseAV Graft Upper Arm (Left) Arterial Sitting Heart Rate Pre-Dialysis 87 BPM Sitting H eart Rate Post-Dialysis 79 BPM Temperature Pre-Dialysis 97.7 degF Temperature Post -Dialysis 97 degF January 10, 2025 In-Center Hemodialysis Treatment 1046-44-40K33:17:30.000Z 2122-80-31O25:49:30.000Z BP Sitting (Pre-Dialysis) 182/75 mmHg BP Sitting (Post-Dialysis) 145/70 mmHg Concurrent Access: falseAV Graft Upper Arm (Left) Arterial Sitting Heart Rate Pre-Dialysis 92 BPM Sitting H eart Rate Post-Dialysis 92 BPM Temperature Pre-Dialysis 98 degF Temperature Post -Dialysis 98 degF January 08, 2025 In-Center Hemodialysis Treatment 5003-51-89C48:53:00.000Z 7116-91-30R08:54:48.000Z BP Sitting (Pre-Dialysis) 164/77 mmHg BP Sitting (Post-Dialysis) 156/80 mmHg Concurrent Access: falseAV Graft Upper Arm (Left) Arterial Sitting Heart Rate Pre-Dialysis 104 BPM Sitting H eart Rate Post-Dialysis 78 BPM Temperature Pre-Dialysis 98.1 degF Temperature Post -Dialysis 97.8 degF January 06, 2025 In-Center Hemodialysis Treatment BP Sitting (Pre-Dialysis) 99/71 mmHg Concur rent Access: falseAV Graft Upper Arm (Left) Arterial Sitting Heart Rate Pre-Dialysis 92 BPM Temperature Pre-Dialysis 97.5 degF January 03, 2025 In-Center Hemodialysis Treatment 5380-60-61F21:03:09.000Z 6403-96-17V05:36:10.000Z BP Sitting (Pre-Dialysis) 185/81 mmHg BP Sitting (Post-Dialysis) 150/59 mmHg Concurrent Access: falseAV Graft Upper Arm (Left) Arterial Sitting Heart Rate Pre-Dialysis 96 BPM Sitting H eart Rate Post-Dialysis 87 BPM Temperature Pre-Dialysis 97.9 degF Temperature Post -Dialysis 98 degF January 01, 2025 In-Center Hemodialysis Treatment 5435-29-49S12:31:37.000Z 8827-27-53E97:19:37.000Z BP Sitting (Pre-Dialysis) 190/81 mmHg BP Sitting (Post-Dialysis) 124/67 mmHg Concurrent Access: falseAV Graft Upper Arm (Left) Arterial Sitting Heart Rate Pre-Dialysis 104 BPM Sitting H eart Rate Post-Dialysis 94 BPM Temperature Pre-Dialysis 97.7 degF December 30, 2024 In-Center Hemodialysis Treatment 0970-83-09P53:42:04.000Z 6207-17-10R12:46:05.000Z BP Sitting (Pre-Dialysis) 154/68 mmHg BP Sitting (Post-Dialysis) 147/72 mmHg Concurrent Access: falseAV Graft Upper Arm (Left) Arterial Sitting Heart Rate Pre-Dialysis 79 BPM Sitting H eart Rate Post-Dialysis 78 BPM Temperature Pre-Dialysis 97.6 degF Temperature Post -Dialysis 98.1 degF December 27, 2024 In-Center Hemodialysis Treatment 3217-68-43U29:45:16.000Z 9749-49-24O84:46:16.000Z BP Sitting (Pre-Dialysis) 150/93 mmHg BP Sitting (Post-Dialysis) 127/57 mmHg Concurrent Access: falseAV Graft Upper Arm (Left) Arterial Sitting Heart Rate Pre-Dialysis 118 BPM Sitting H eart Rate Post-Dialysis 77 BPM Temperature Pre-Dialysis 97.7 degF Temperature Post -Dialysis 98.2 degF December 25, 2024 In-Center Hemodialysis Treatment 4769-17-99O05:39:43.000Z 0014-79-30V56:10:44.000Z BP Sitting (Pre-Dialysis) 186/48 mmHg BP Sitting (Post-Dialysis) 141/69 mmHg Concurrent Access: falseAV Graft Upper Arm (Left) Arterial Sitting Heart Rate Pre-Dialysis 97 BPM Sitting H eart Rate Post-Dialysis 80 BPM Temperature Pre-Dialysis 97.8 degF Temperature Post -Dialysis 98.2 degF December 23, 2024 In-Center Hemodialysis Treatment 0232-67-12M19:54:00.000Z 8113-18-72C13:30:11.000Z BP Sitting (Pre-Dialysis) 216/72 mmHg BP Sitting (Post-Dialysis) 156/64 mmHg Concurrent Access: falseAV Graft Upper Arm (Left) Arterial Sitting Heart Rate Pre-Dialysis 90 BPM Sitting H eart Rate Post-Dialysis 85 BPM Temperature Pre-Dialysis 97.9 degF Temperature Post -Dialysis 97.3 degF December 20, 2024 In-Center Hemodialysis Treatment 0268-27-53D74:36:21.000Z 7663-08-24L97:07:22.000Z BP Sitting (Pre-Dialysis) 189/84 mmHg BP Sitting (Post-Dialysis) 163/82 mmHg Concurrent Access: falseAV Graft Upper Arm (Left) Arterial Sitting Heart Rate Pre-Dialysis 93 BPM Sitting H eart Rate Post-Dialysis 84 BPM Temperature Pre-Dialysis 98.1 degF Temperature Post -Dialysis 98 degF December 18, 2024 In-Center Hemodialysis Treatment 5222-74-37N99:56:49.000Z 2202-49-27Y87:30:50.000Z BP Sitting (Pre-Dialysis) 155/61 mmHg BP Sitting (Post-Dialysis) 127/60 mmHg Concurrent Access: falseAV Graft Upper Arm (Left) Arterial Sitting Heart Rate Pre-Dialysis 87 BPM Sitting H eart Rate Post-Dialysis 79 BPM Temperature Pre-Dialysis 98 degF Temperature Post -Dialysis 98.2 degF December 16, 2024 In-Center Hemodialysis Treatment 3874-19-29I93:53:17.000Z 3982-39-49S10:26:17.000Z BP Sitting (Pre-Dialysis) 196/59 mmHg BP Sitting (Post-Dialysis) 146/73 mmHg Concurrent Access: falseAV Graft Upper Arm (Left) Arterial Sitting Heart Rate Pre-Dialysis 84 BPM Sitting H eart Rate Post-Dialysis 79 BPM Temperature Pre-Dialysis 98.1 degF Temperature Post -Dialysis 98 degF December 13, 2024 In-Center Hemodialysis Treatment 3748-33-25C78:11:28.000Z 1931-23-76F02:48:29.000Z BP Sitting (Pre-Dialysis) 205/90 mmHg BP Sitting (Post-Dialysis) 142/88 mmHg Concurrent Access: falseAV Graft Upper Arm (Left) Arterial Sitting Heart Rate Pre-Dialysis 108 BPM Sitting H eart Rate Post-Dialysis 65 BPM Temperature Pre-Dialysis 98 degF Temperature Post -Dialysis 98 degF December 11, 2024 In-Center Hemodialysis Treatment 0527-52-60M46:55:56.000Z 5946-99-34O74:32:56.000Z BP Sitting (Pre-Dialysis) 183/85 mmHg BP Sitting (Post-Dialysis) 141/81 mmHg Concurrent Access: falseAV Graft Upper Arm (Left) Arterial Sitting Heart Rate Pre-Dialysis 90 BPM Sitting H eart Rate Post-Dialysis 65 BPM Temperature Pre-Dialysis 98 degF Temperature Post -Dialysis 97.7 degF December 09, 2024 In-Center Hemodialysis Treatment 5520-87-83S51:38:56.000Z 5959-48-62E21:00:33.000Z BP Sitting (Pre-Dialysis) 175/103 mmHg BP Sitting (Post-Dialysis) 117/79 mmHg Concurrent Access: falseAV Graft Upper Arm (Left) Arterial Sitting Heart Rate Pre-Dialysis 93 BPM Sitting H eart Rate Post-Dialysis 84 BPM Temperature Pre-Dialysis 98 degF Temperature Post -Dialysis 98 degF December 06, 2024 In-Center Hemodialysis Treatment 6937-58-37N27:27:32.000Z 4690-89-60X40:49:32.000Z BP Sitting (Pre-Dialysis) 149/85 mmHg BP Sitting (Post-Dialysis) 113/65 mmHg Concurrent Access: falseAV Graft Upper Arm (Left) Arterial Sitting Heart Rate Pre-Dialysis 89 BPM Sitting H eart Rate Post-Dialysis 89 BPM Temperature Pre-Dialysis 97.4 degF Temperature Post -Dialysis 97.4 degF December 04, 2024 In-Center Hemodialysis Treatment 9259-08-36V86:05:59.000Z 5093-44-44P53:44:59.000Z BP Sitting (Pre-Dialysis) 186/86 mmHg BP Sitting (Post-Dialysis) 160/83 mmHg Concurrent Access: falseAV Graft Upper Arm (Left) Arterial Sitting Heart Rate Pre-Dialysis 93 BPM Sitting H eart Rate Post-Dialysis 84 BPM Temperature Pre-Dialysis 97 degF Temperature Post -Dialysis 97 degF December 02, 2024 In-Center Hemodialysis Treatment 4747-69-37Y37:09:00.000Z 7784-05-95S23:46:31.000Z BP Sitting (Pre-Dialysis) 199/85 mmHg BP Sitting (Post-Dialysis) 142/74 mmHg Concurrent Access: falseAV Graft Upper Arm (Left) Arterial Sitting Heart Rate Pre-Dialysis 96 BPM Sitting H eart Rate Post-Dialysis 88 BPM Temperature Pre-Dialysis 97.2 degF Temperature Post -Dialysis 97.2 degF November 29, 2024 In-Center Hemodialysis Treatment 3954-82-71F83:13:44.000Z 3876-71-57U54:46:44.000Z BP Sitting (Pre-Dialysis) 132/88 mmHg BP Sitting (Post-Dialysis) 149/79 mmHg Concurrent Access: falseAV Graft Upper Arm (Left) Arterial Sitting Heart Rate Pre-Dialysis 85 BPM Sitting H eart Rate Post-Dialysis 86 BPM Temperature Pre-Dialysis 98.1 degF Temperature Post -Dialysis 98.1 degF November 27, 2024 In-Center Hemodialysis Treatment 3939-03-91M44:10:14.000Z 0328-09-34O76:36:14.000Z BP Sitting (Pre-Dialysis) 182/94 mmHg BP Sitting (Post-Dialysis) 152/74 mmHg Concurrent Access: falseAV Graft Upper Arm (Left) Arterial Sitting Heart Rate Pre-Dialysis 105 BPM Sitting H eart Rate Post-Dialysis 89 BPM Temperature Pre-Dialysis 98 degF Temperature Post -Dialysis 98 degF November 25, 2024 In-Center Hemodialysis Treatment 7691-40-56R47:16:41.000Z 6112-84-11R85:31:41.000Z BP Sitting (Pre-Dialysis) 188/91 mmHg BP Sitting (Post-Dialysis) 118/82 mmHg Concurrent Access: falseAV Graft Upper Arm (Left) Arterial Sitting Heart Rate Pre-Dialysis 89 BPM Sitting H eart Rate Post-Dialysis 96 BPM Temperature Pre-Dialysis 97.8 degF Temperature Post -Dialysis 98.1 degF November 22, 2024 In-Center Hemodialysis Treatment 4585-93-73I97:11:52.000Z 2600-42-21K66:41:52.000Z BP Sitting (Pre-Dialysis) 184/82 mmHg BP Sitting (Post-Dialysis) 153/77 mmHg Concurrent Access: falseAV Graft Upper Arm (Left) Arterial Sitting Heart Rate Pre-Dialysis 104 BPM Sitting H eart Rate Post-Dialysis 97 BPM Temperature Pre-Dialysis 98 degF Temperature Post -Dialysis 98 degF November 20, 2024 In-Center Hemodialysis Treatment 3041-90-49N42:35:00.000Z 9136-90-74T70:09:20.000Z BP Sitting (Pre-Dialysis) 157/82 mmHg BP Sitting (Post-Dialysis) 136/79 mmHg Concurrent Access: falseAV Graft Upper Arm (Left) Arterial Sitting Heart Rate Pre-Dialysis 96 BPM Sitting H eart Rate Post-Dialysis 91 BPM Temperature Pre-Dialysis 97 degF Temperature Post -Dialysis 97.2 degF November 18, 2024 In-Center Hemodialysis Treatment 4911-50-07J76:14:19.000Z 1979-94-07R82:46:19.000Z BP Sitting (Pre-Dialysis) 150/81 mmHg BP Sitting (Post-Dialysis) 148/79 mmHg Concurrent Access: falseAV Graft Upper Arm (Left) Arterial Sitting Heart Rate Pre-Dialysis 95 BPM Sitting H eart Rate Post-Dialysis 91 BPM Temperature Pre-Dialysis 97.7 degF Temperature Post -Dialysis 97.2 degF November 15, 2024 In-Center Hemodialysis Treatment 6005-17-95M28:20:29.000Z 5618-41-46S59:54:30.000Z BP Sitting (Pre-Dialysis) 160/89 mmHg BP Sitting (Post-Dialysis) 105/81 mmHg Concurrent Access: falseAV Graft Upper Arm (Left) Arterial Sitting Heart Rate Pre-Dialysis 92 BPM Sitting H eart Rate Post-Dialysis 86 BPM Temperature Pre-Dialysis 98 degF Temperature Post -Dialysis 97.5 degF November 13, 2024 In-Center Hemodialysis Treatment 2841-18-08P33:01:57.000Z 1302-41-13O03:32:57.000Z BP Sitting (Pre-Dialysis) 119/66 mmHg BP Sitting (Post-Dialysis) 118/70 mmHg Concurrent Access: falseAV Graft Upper Arm (Left) Arterial Sitting Heart Rate Pre-Dialysis 90 BPM Sitting H eart Rate Post-Dialysis 89 BPM Temperature Pre-Dialysis 97.3 degF November 11, 2024 In-Center Hemodialysis Treatment 5509-33-17W68:18:24.000Z 0479-69-65G28:52:24.000Z BP Sitting (Pre-Dialysis) 176/80 mmHg BP Sitting (Post-Dialysis) 116/85 mmHg Concurrent Access: falseAV Graft Upper Arm (Left) Arterial Sitting Heart Rate Pre-Dialysis 102 BPM Sitting H eart Rate Post-Dialysis 101 BPM Temperature Pre-Dialysis 97.5 degF Temperature Post -Dialysis 97.6 degF November 08, 2024 In-Center Hemodialysis Treatment 8272-48-00Q84:19:40.000Z 9564-49-69U63:46:41.000Z BP Sitting (Pre-Dialysis) 152/78 mmHg BP Sitting (Post-Dialysis) 136/70 mmHg Concurrent Access: falseAV Graft Upper Arm (Left) Arterial Sitting Heart Rate Pre-Dialysis 101 BPM Sitting H eart Rate Post-Dialysis 98 BPM Temperature Pre-Dialysis 97.8 degF Temperature Post -Dialysis 98.1 degF November 06, 2024 In-Center Hemodialysis Treatment 3539-28-39M41:17:08.000Z 0648-63-11R42:55:08.000Z BP Sitting (Pre-Dialysis) 156/76 mmHg BP Sitting (Post-Dialysis) 132/69 mmHg Concurrent Access: falseAV Graft Upper Arm (Left) Arterial Sitting Heart Rate Pre-Dialysis 96 BPM Sitting H eart Rate Post-Dialysis 64 BPM Temperature Pre-Dialysis 98 degF Temperature Post -Dialysis 98.2 degF November 04, 2024 In-Center Hemodialysis Treatment 9860-76-00K75:05:00.000Z 7006-52-52C00:20:35.000Z BP Sitting (Pre-Dialysis) 152/74 mmHg BP Sitting (Post-Dialysis) 135/74 mmHg Concurrent Access: falseAV Graft Upper Arm (Left) Arterial Sitting Heart Rate Pre-Dialysis 90 BPM Sitting H eart Rate Post-Dialysis 85 BPM Temperature Pre-Dialysis 97.2 degF Temperature Post -Dialysis 97.3 degF November 01, 2024 In-Center Hemodialysis Treatment 1846-60-50L14:25:18.000Z 6797-67-15M85:54:18.000Z BP Sitting (Pre-Dialysis) 135/75 mmHg BP Sitting (Post-Dialysis) 116/59 mmHg Concurrent Access: falseAV Graft Upper Arm (Left) Arterial Sitting Heart Rate Pre-Dialysis 88 BPM Sitting H eart Rate Post-Dialysis 87 BPM Temperature Pre-Dialysis 97.2 degF October 30, 2024 In-Center Hemodialysis Treatment 7674-35-65W75:14:45.000Z 9701-73-61L56:46:46.000Z BP Sitting (Pre-Dialysis) 142/75 mmHg BP Sitting (Post-Dialysis) 113/69 mmHg Concurrent Access: falseAV Graft Upper Arm (Left) Arterial Sitting Heart Rate Pre-Dialysis 101 BPM Sitting H eart Rate Post-Dialysis 87 BPM Temperature Pre-Dialysis 97.8 degF Temperature Post -Dialysis 97.2 degF October 28, 2024 In-Center Hemodialysis Treatment 7263-82-78W61:14:13.000Z 6796-15-31L21:40:13.000Z BP Sitting (Pre-Dialysis) 133/68 mmHg BP Sitting (Post-Dialysis) 121/67 mmHg Concurrent Access: falseAV Graft Upper Arm (Left) Arterial Sitting Heart Rate Pre-Dialysis 95 BPM Sitting H eart Rate Post-Dialysis 83 BPM Temperature Pre-Dialysis 97.6 degF Temperature Post -Dialysis 97.8 degF October 25, 2024 In-Center Hemodialysis Treatment 1341-18-10W63:51:00.000Z 5731-96-11W16:24:24.000Z BP Sitting (Pre-Dialysis) 109/74 mmHg BP Sitting (Post-Dialysis) 105/69 mmHg Concurrent Access: falseAV Graft Upper Arm (Left) Arterial Sitting Heart Rate Pre-Dialysis 88 BPM Sitting H eart Rate Post-Dialysis 89 BPM Temperature Pre-Dialysis 97.6 degF Temperature Post -Dialysis 97.8 degF October 23, 2024 In-Center Hemodialysis Treatment 2204-15-62H11:23:51.000Z 1974-43-81U75:32:51.000Z BP Sitting (Pre-Dialysis) 122/65 mmHg BP Sitting (Post-Dialysis) 100/86 mmHg Concurrent Access: falseAV Graft Upper [place] (Left) Arterial Sitting Heart Rate Pre-Dialysis 84 BPM Sitting H eart Rate Post-Dialysis 84 BPM Temperature Pre-Dialysis 98 degF Temperature Post -Dialysis 97.2 degF October 21, 2024 In-Center Hemodialysis Treatment 8108-35-24B99:14:15.000Z 4482-77-35D15:47:16.000Z BP Sitting (Pre-Dialysis) 118/63 mmHg BP Sitting (Post-Dialysis) 123/68 mmHg Concurrent Access: falseAV Graft Upper [place] (Left) Arterial Sitting Heart Rate Pre-Dialysis 85 BPM Sitting H eart Rate Post-Dialysis 84 BPM Temperature Pre-Dialysis 97.4 degF October 18, 2024 In-Center Hemodialysis Treatment 9897-18-18V80:17:30.000Z 0921-35-51Q55:36:30.000Z BP Sitting (Pre-Dialysis) 119/62 mmHg BP Sitting (Post-Dialysis) 102/73 mmHg Concurrent Access: falseAV G[place] Upper [place] (Left) Arterial Sitting Heart Rate Pre-Dialysis 79 BPM Sitting H eart Rate Post-Dialysis 79 BPM Temperature Pre-Dialysis 96.8 degF October 16, 2024 In-Center Hemodialysis Treatment 9295-53-48Z07:08:57.000Z 3399-35-53W96:39:00.000Z BP Sitting (Pre-Dialysis) 123/58 mmHg BP Sitting (Post-Dialysis) 102/73 mmHg Concurrent Access: falseAV G[place] Upper [place] (Left) Arterial Sitting Heart Rate Pre-Dialysis 81 BPM Sitting H eart Rate Post-Dialysis 79 BPM Temperature Pre-Dialysis 97.7 degF Temperature Post -Dialysis 97.5 degF October 14, 2024 In-Center Hemodialysis Treatment 6926-35-34F35:03:23.000Z 5572-21-28X61:28:24.000Z BP Sitting (Pre-Dialysis) 151/73 mmHg BP Sitting (Post-Dialysis) 128/69 mmHg Concurrent Access: falseAV G[place] Upper [place] (Left) Arterial Sitting Heart Rate Pre-Dialysis 94 BPM Sitting H eart Rate Post-Dialysis 92 BPM Temperature Pre-Dialysis 97.6 degF Temperature Post -Dialysis 97.2 degF October 11, 2024 In-Center Hemodialysis Treatment 5698-13-36O50:59:11.000Z 8886-31-08V40:31:11.000Z BP Sitting (Pre-Dialysis) 127/72 mmHg BP Sitting (Post-Dialysis) 124/71 mmHg Concurrent Access: falseAV G[place] Upper [place] (Left) Arterial BP Standing (Pre-Dialysis) 124/69 mmHg Sitti ng Heart Rate Post-Dialysis 91 BPM Sitting Heart Rate Pre-Dialysis 95 BPM Temperatu re Post-Dialysis 97.3 degF Standing Heart Rate Pre-Dialysis 101 BPM Temperature Pre-Dialysis 97.8 degF October 09, 2024 In-Center Hemodialysis Treatment 9754-24-69S81:15:00.000Z 0603-52-78P20:50:39.000Z BP Sitting (Pre-Dialysis) 173/60 mmHg BP Sitting (Post-Dialysis) 131/77 mmHg Concurrent Access: falseAV G[place] Upper [place] (Left) Arterial Sitting Heart Rate Pre-Dialysis 95 BPM Sitting H eart Rate Post-Dialysis 95 BPM Temperature Pre-Dialysis 97.1 degF Temperature Post -Dialysis 97.2 degF October 07, 2024 In-Center Hemodialysis Treatment 4209-28-76H89:35:54.000Z 1029-30-74V29:12:55.000Z BP Sitting (Pre-Dialysis) 147/69 mmHg BP Sitting (Post-Dialysis) 133/68 mmHg Concurrent Access: falseAV G[place] Upper [place] (Left) Arterial Sitting Heart Rate Pre-Dialysis 106 BPM Sitting H eart Rate Post-Dialysis 98 BPM Temperature Pre-Dialysis 97.7 degF Temperature Post -Dialysis 98 degF October 04, 2024 In-Center Hemodialysis Treatment 1770-58-33F64:23:51.000Z 7045-91-50A09:47:51.000Z BP Sitting (Pre-Dialysis) 149/69 mmHg BP Sitting (Post-Dialysis) 143/76 mmHg Concurrent Access: falseAV G[place] Upper [place] (Left) Arterial BP Standing (Pre-Dialysis) 174/78 mmHg Sitti ng Heart Rate Post-Dialysis 81 BPM Sitting Heart Rate Pre-Dialysis 92 BPM Temperatu re Post-Dialysis 97.4 degF Standing Heart Rate Pre-Dialysis 96 BPM Temperature Pre-Dialysis 97.2 degF October 02, 2024 In-Center Hemodialysis Treatment 3768-92-81C61:18:18.000Z 8278-30-48V69:59:18.000Z BP Sitting (Pre-Dialysis) 174/74 mmHg BP Sitting (Post-Dialysis) 139/81 mmHg Concurrent Access: falseAV G[place] Upper [place] (Left) Arterial Sitting Heart Rate Pre-Dialysis 97 BPM Sitting H eart Rate Post-Dialysis 100 BPM Temperature Pre-Dialysis 97.9 degF Temperature Post -Dialysis 98 degF September 30, 2024 In-Center Hemodialysis Treatment 1110-06-88U30:01:45.000Z 7561-89-01A93:36:45.000Z BP Sitting (Pre-Dialysis) 119/90 mmHg BP Sitting (Post-Dialysis) 130/74 mmHg Concurrent Access: falseAV G[place] Upper [place] (Left) Arterial Sitting Heart Rate Pre-Dialysis 101 BPM Sitting H eart Rate Post-Dialysis 104 BPM Temperature Pre-Dialysis 97.2 degF Temperature Post -Dialysis 97.7 degF September 27, 2024 In-Center Hemodialysis Treatment 2362-71-74Y79:14:26.000Z 4903-63-04L27:45:26.000Z BP Sitting (Pre-Dialysis) 150/76 mmHg BP Sitting (Post-Dialysis) 93/54 mmHg Concurrent Access: falseAV G[place] Upper [place] (Left) Arterial Sitting Heart Rate Pre-Dialysis 99 BPM Sitting H eart Rate Post-Dialysis 81 BPM Temperature Pre-Dialysis 98 degF September 25, 2024 In-Center Hemodialysis Treatment 0305-64-48P71:04:52.000Z 3964-53-53S53:41:52.000Z BP Sitting (Pre-Dialysis) 143/75 mmHg BP Sitting (Post-Dialysis) 101/56 mmHg Concurrent Access: falseAV G[place] Upper [place] (Left) Arterial Sitting Heart Rate Pre-Dialysis 100 BPM Sitting H eart Rate Post-Dialysis 98 BPM Temperature Pre-Dialysis 97.3 degF Temperature Post -Dialysis 97.5 degF September 23, 2024 In-Center Hemodialysis Treatment 2106-03-81I28:15:20.000Z 1872-33-14Q11:54:20.000Z BP Sitting (Pre-Dialysis) 144/72 mmHg BP Sitting (Post-Dialysis) 115/82 mmHg Concurrent Access: falseAV G[place] Upper [place] (Left) Arterial BP Standing (Pre-Dialysis) 158/68 mmHg Sitti ng Heart Rate Post-Dialysis 88 BPM Sitting Heart Rate Pre-Dialysis 94 BPM Temperatu re Post-Dialysis 97.3 degF Standing Heart Rate Pre-Dialysis 94 BPM Temperature Pre-Dialysis 97.2 degF September 20, 2024 In-Center Hemodialysis Treatment 7821-08-94V59:09:12.000Z 3941-92-48H01:06:13.000Z BP Sitting (Pre-Dialysis) 109/65 mmHg BP Sitting (Post-Dialysis) 130/90 mmHg Concurrent Access: falseAV G[place] Upper [place] (Left) Arterial Sitting Heart Rate Pre-Dialysis 110 BPM Sitting H eart Rate Post-Dialysis 66 BPM Temperature Pre-Dialysis 97.2 degF Temperature Post -Dialysis 97.3 degF September 19, 2024 In-Center Hemodialysis Treatment 6890-94-11B14:49:00.000Z 8204-46-67Q45:49:56.000Z BP Sitting (Pre-Dialysis) 156/80 mmHg BP Sitting (Post-Dialysis) 117/59 mmHg Concurrent Access: falseAV G[place] Upper [place] (Left) Arterial Sitting Heart Rate Pre-Dialysis 112 BPM Sitting H eart Rate Post-Dialysis 102 BPM Temperature Pre-Dialysis 97.4 degF Temperature Post -Dialysis 97.2 degF September 16, 2024 In-Center Hemodialysis Treatment 9009-16-38S65:12:00.000Z 7840-64-77A75:29:26.000Z BP Sitting (Pre-Dialysis) 153/71 mmHg BP Sitting (Post-Dialysis) 124/78 mmHg Concurrent Access: falseAV G[place] (Left) Arterial Sitting Heart Rate Pre-Dialysis 94 BPM Sitting H eart Rate Post-Dialysis 107 BPM Temperature Pre-Dialysis 98 degF Temperature Post -Dialysis 97.3 degF September 13, 2024 In-Center Hemodialysis Treatment 4711-28-74D58:36:37.000Z 0145-76-49I00:00:37.000Z BP Sitting (Pre-Dialysis) 140/81 mmHg BP Sitting (Post-Dialysis) 100/69 mmHg Concurrent Access: falseAV G[place] (Left) Arterial Sitting Heart Rate Pre-Dialysis 112 BPM Sitting H eart Rate Post-Dialysis 97 BPM Temperature Pre-Dialysis 98 degF Temperature Post -Dialysis 97.2 degF September 06, 2024 In-Center Hemodialysis Treatment 7114-47-60M59:09:43.000Z 7731-72-23M57:36:43.000Z BP Sitting (Pre-Dialysis) 155/64 mmHg BP Sitting (Post-Dialysis) 150/75 mmHg Concurrent Access: falseAV G[place] Upper [place] (Left) Arterial Sitting Heart Rate Pre-Dialysis 98 BPM Sitting H eart Rate Post-Dialysis 99 BPM Temperature Pre-Dialysis 97.8 degF Temperature Post -Dialysis 97.8 degF September 04, 2024 In-Center Hemodialysis Treatment 0507-57-36V43:05:00.000Z 2155-74-87R60:55:12.000Z BP Sitting (Pre-Dialysis) 146/77 mmHg BP Sitting (Post-Dialysis) 162/68 mmHg Concurrent Access: falseAV G[place] Upper [place] (Left) Arterial Sitting Heart Rate Pre-Dialysis 98 BPM Sitting H eart Rate Post-Dialysis 74 BPM Temperature Pre-Dialysis 97.7 degF Temperature Post -Dialysis 97.5 degF September 03, 2024 In-Center Hemodialysis Treatment 6154-81-83Y39:24:00.000Z 2018-00-59W27:45:50.000Z BP Sitting (Pre-Dialysis) 151/69 mmHg BP Sitting (Post-Dialysis) 149/88 mmHg Concurrent Access: falseAV G[place] Upper [place] (Left) Arterial Sitting Heart Rate Pre-Dialysis 95 BPM Sitting H eart Rate Post-Dialysis 101 BPM Temperature Pre-Dialysis 97.2 degF Temperature Post -Dialysis 97.1 degF August 30, 2024 In-Center Hemodialysis Treatment 7733-74-36P95:16:00.000Z 5015-32-89P85:53:50.000Z BP Sitting (Pre-Dialysis) 158/70 mmHg BP Sitting (Post-Dialysis) 123/56 mmHg Concurrent Access: falseAV G[place] Upper [place] (Left) Arterial Sitting Heart Rate Pre-Dialysis 91 BPM Sitting H eart Rate Post-Dialysis 96 BPM Temperature Pre-Dialysis 97.1 degF Temperature Post -Dialysis 97 degF August 27, 2024 In-Center Hemodialysis Treatment 1690-13-50G42:24:00.000Z 3913-69-25B08:21:00.000Z BP Sitting (Pre-Dialysis) 165/75 mmHg BP Sitting (Post-Dialysis) 122/69 mmHg Concurrent Access: falseAV G[place] Upper [place] (Left) Arterial Sitting Heart Rate Pre-Dialysis 99 BPM BP Standi ng (Post-Dialysis) 119/69 mmHg Temperature Pre-Dialysis 98 degF Sitting Heart Ra te Post-Dialysis 90 BPM Standing Heart Rate Post-Luisa lysis 90 BPM Temperature Post-Dialysis 98 degF August 25, 2024 In-Center Hemodialysis Treatment 3466-64-17V87:25:29.000Z 4337-05-74V12:36:29.000Z BP Sitting (Pre-Dialysis) 149/71 mmHg BP Sitting (Post-Dialysis) 165/87 mmHg Concurrent Access: falseAV G[place] Upper [place] (Left) Arterial Sitting Heart Rate Pre-Dialysis 98 BPM Sitting H eart Rate Post-Dialysis 97 BPM Temperature Pre-Dialysis 98 degF Temperature Post -Dialysis 97.2 degF August 23, 2024 In-Center Hemodialysis Treatment 9809-75-52O10:11:56.000Z 8733-70-46X03:40:56.000Z BP Sitting (Pre-Dialysis) 169/72 mmHg BP Sitting (Post-Dialysis) 154/77 mmHg Concurrent Access: falseAV G[place] Upper [place] (Left) Arterial Sitting Heart Rate Pre-Dialysis 94 BPM Sitting H eart Rate Post-Dialysis 90 BPM Temperature Pre-Dialysis 97.4 degF Temperature Post -Dialysis 97.6 degF August 20, 2024 In-Center Hemodialysis Treatment 5684-87-80J95:10:00.000Z 8064-49-78V97:46:08.000Z BP Sitting (Pre-Dialysis) 181/72 mmHg BP Sitting (Post-Dialysis) 147/73 mmHg Concurrent Access: falseAV G[place] Upper [place] (Left) Arterial Sitting Heart Rate Pre-Dialysis 105 BPM Sitting H eart Rate Post-Dialysis 98 BPM Temperature Pre-Dialysis 97.8 degF Temperature Post -Dialysis 97.8 degF August 18, 2024 In-Center Hemodialysis Treatment 7472-17-18S02:18:34.000Z 6426-98-65M63:02:34.000Z BP Sitting (Pre-Dialysis) 180/86 mmHg BP Sitting (Post-Dialysis) 137/68 mmHg Concurrent Access: falseAV G[place] Upper [place] (Left) Arterial Sitting Heart Rate Pre-Dialysis 100 BPM Sitting H eart Rate Post-Dialysis 90 BPM Temperature Pre-Dialysis 97.8 degF Temperature Post -Dialysis 97.8 degF August 16, 2024 In-Center Hemodialysis Treatment 8627-89-59W46:14:01.000Z 1716-10-89W17:47:01.000Z BP Sitting (Pre-Dialysis) 127/64 mmHg BP Sitting (Post-Dialysis) 129/66 mmHg Concurrent Access: falseAV G[place] Upper [place] (Left) Arterial Sitting Heart Rate Pre-Dialysis 104 BPM Sitting H eart Rate Post-Dialysis 98 BPM Temperature Pre-Dialysis 97.8 degF Temperature Post -Dialysis 98 degF August 15, 2024 Additional Day Of Dialysis Treatment 4458-80-94W09:02:56.000Z 6056-45-54Q65:38:56.000Z BP Sitting (Pre-Dialysis) 131/99 mmHg BP Sitting (Post-Dialysis) 147/80 mmHg Concurrent Access: falseAV G[place] Upper [place] (Left) Arterial Sitting Heart Rate Pre-Dialysis 94 BPM Sitting H eart Rate Post-Dialysis 93 BPM Temperature Pre-Dialysis 98 degF Temperature Post -Dialysis 98 degF August 14, 2024 In-Center Hemodialysis Treatment 9849-09-65X52:17:00.000Z 7072-62-52T44:55:28.000Z BP Sitting (Pre-Dialysis) 171/52 mmHg BP Sitting (Post-Dialysis) 140/76 mmHg Concurrent Access: falseAV G[place] Upper [place] (Left) Arterial Sitting Heart Rate Pre-Dialysis 93 BPM Sitting H eart Rate Post-Dialysis 93 BPM Temperature Pre-Dialysis 98 degF Temperature Post -Dialysis 98 degF August 12, 2024 In-Center Hemodialysis Treatment 6127-81-79A88:09:00.000Z 9270-54-37X25:44:56.000Z BP Sitting (Pre-Dialysis) 165/71 mmHg BP Sitting (Post-Dialysis) 160/79 mmHg Concurrent Access: falseAV G[place] Upper [place] (Left) Arterial Sitting Heart Rate Pre-Dialysis 90 BPM Sitting H eart Rate Post-Dialysis 88 BPM Temperature Pre-Dialysis 97.7 degF Temperature Post -Dialysis 97 degF August 09, 2024 In-Center Hemodialysis Treatment 4705-03-28W25:10:00.000Z 2515-14-10B69:46:08.000Z BP Sitting (Pre-Dialysis) 160/52 mmHg BP Sitting (Post-Dialysis) 159/77 mmHg Concurrent Access: falseAV G[place] Upper [place] (Left) Arterial Sitting Heart Rate Pre-Dialysis 86 BPM Sitting H eart Rate Post-Dialysis 80 BPM Temperature Pre-Dialysis 97.3 degF Temperature Post -Dialysis 97.3 degF August 07, 2024 In-Center Hemodialysis Treatment 0065-23-28E66:14:34.000Z 6524-72-00B48:45:35.000Z BP Sitting (Pre-Dialysis) 185/90 mmHg BP Sitting (Post-Dialysis) 161/78 mmHg Concurrent Access: falseAV G[place] Upper [place] (Left) Arterial Sitting Heart Rate Pre-Dialysis 94 BPM Sitting H eart Rate Post-Dialysis 84 BPM Temperature Pre-Dialysis 97 degF Temperature Post -Dialysis 97.2 degF August 05, 2024 In-Center Hemodialysis Treatment 1610-42-10B48:27:03.000Z 6521-94-48L30:58:03.000Z BP Sitting (Pre-Dialysis) 166/79 mmHg BP Sitting (Post-Dialysis) 153/69 mmHg Concurrent Access: falseAV G[place] (Left) Arterial BP Standing (Pre-Dialysis) 166/77 mmHg Sitti ng Heart Rate Post-Dialysis 78 BPM Sitting Heart Rate Pre-Dialysis 87 BPM Temperatu re Post-Dialysis 98.2 degF Standing Heart Rate Pre-Dialysis 87 BPM Temperature Pre-Dialysis 97.6 degF August 02, 2024 In-Center Hemodialysis Treatment 5462-71-43Y68:15:45.000Z 8498-76-09K04:16:45.000Z BP Sitting (Pre-Dialysis) 149/71 mmHg BP Sitting (Post-Dialysis) 148/72 mmHg Concurrent Access: falseAV G[place] Upper [place] (Left) Arterial Sitting Heart Rate Pre-Dialysis 81 BPM Sitting H eart Rate Post-Dialysis 76 BPM Temperature Pre-Dialysis 97.5 degF Temperature Post -Dialysis 97.8 degF July 31, 2024 In-Center Hemodialysis Treatment 5186-25-41H81:12:00.000Z 5953-21-74D41:46:08.000Z BP Sitting (Pre-Dialysis) 165/76 mmHg BP Sitting (Post-Dialysis) 153/79 mmHg Concurrent Access: falseAV Graft Upper Arm (Left) Arterial Sitting Heart Rate Pre-Dialysis 91 BPM Sitting H eart Rate Post-Dialysis 87 BPM Temperature Pre-Dialysis 98.1 degF Temperature Post -Dialysis 98.3 degF July 29, 2024 In-Center Hemodialysis Treatment 0580-40-31Y86:12:34.000Z 9166-84-05M72:43:34.000Z BP Sitting (Pre-Dialysis) 177/85 mmHg BP Sitting (Post-Dialysis) 171/91 mmHg Concurrent Access: falseAV Graft Upper [place] (Left) Arterial Sitting Heart Rate Pre-Dialysis 91 BPM Sitting H eart Rate Post-Dialysis 87 BPM Temperature Pre-Dialysis 97.8 degF Temperature Post -Dialysis 97 degF July 26, 2024 In-Center Hemodialysis Treatment 7380-22-88E56:20:40.000Z 5797-64-00N97:55:40.000Z BP Sitting (Pre-Dialysis) 142/69 mmHg BP Sitting (Post-Dialysis) 125/67 mmHg Concurrent Access: falseAV G[place] Upper [place] (Left) Arterial Sitting Heart Rate Pre-Dialysis 80 BPM Sitting H eart Rate Post-Dialysis 80 BPM Temperature Pre-Dialysis 97.8 degF Temperature Post -Dialysis 97.8 degF July 23, 2024 In-Center Hemodialysis Treatment 4892-73-32M67:07:37.000Z 0549-12-90M04:35:38.000Z BP Sitting (Pre-Dialysis) 141/48 mmHg BP Sitting (Post-Dialysis) 130/80 mmHg Concurrent Access: falseAV Graft Upper Arm (Left) Arterial Sitting Heart Rate Pre-Dialysis 81 BPM Sitting H eart Rate Post-Dialysis 96 BPM Temperature Pre-Dialysis 97.8 degF Temperature Post -Dialysis 97.6 degF July 21, 2024 In-Center Hemodialysis Treatment 8804-98-34S06:23:00.000Z 4120-73-36O01:46:58.000Z BP Sitting (Pre-Dialysis) 179/78 mmHg BP Sitting (Post-Dialysis) 142/71 mmHg Concurrent Access: falseAV Graft Upper Arm (Left) Arterial Sitting Heart Rate Pre-Dialysis 92 BPM Sitting H eart Rate Post-Dialysis 95 BPM Temperature Pre-Dialysis 97.2 degF Temperature Post -Dialysis 97.2 degF July 19, 2024 In-Center Hemodialysis Treatment 2819-06-18C15:15:17.000Z 2750-01-12E19:48:17.000Z BP Sitting (Pre-Dialysis) 164/75 mmHg BP Sitting (Post-Dialysis) 140/59 mmHg Concurrent Access: falseAV Graft Upper Arm (Left) Arterial Sitting Heart Rate Pre-Dialysis 89 BPM Sitting H eart Rate Post-Dialysis 86 BPM Temperature Pre-Dialysis 97.8 degF Temperature Post -Dialysis 97.8 degF July 17, 2024 In-Center Hemodialysis Treatment 7923-43-09K75:11:44.000Z 2520-96-66R39:44:44.000Z BP Sitting (Pre-Dialysis) 171/79 mmHg BP Sitting (Post-Dialysis) 136/64 mmHg Concurrent Access: falseAV Graft Upper Arm (Left) Arterial Sitting Heart Rate Pre-Dialysis 100 BPM Sitting H eart Rate Post-Dialysis 86 BPM Temperature Pre-Dialysis 97.6 degF Temperature Post -Dialysis 97.6 degF July 15, 2024 In-Center Hemodialysis Treatment 5298-58-89W44:03:00.000Z 4762-70-66L37:40:09.000Z BP Sitting (Pre-Dialysis) 158/71 mmHg BP Sitting (Post-Dialysis) 149/76 mmHg Concurrent Access: falseAV Graft Upper Arm (Left) Arterial Sitting Heart Rate Pre-Dialysis 91 BPM Sitting H eart Rate Post-Dialysis 88 BPM Temperature Pre-Dialysis 98 degF Temperature Post -Dialysis 97.3 degF July 12, 2024 In-Center Hemodialysis Treatment 5361-28-99J29:13:24.000Z 4624-99-36X79:49:24.000Z BP Sitting (Pre-Dialysis) 165/78 mmHg BP Sitting (Post-Dialysis) 135/67 mmHg Concurrent Access: falseAV Graft Upper Arm (Left) Arterial Sitting Heart Rate Pre-Dialysis 83 BPM Sitting H eart Rate Post-Dialysis 81 BPM Temperature Pre-Dialysis 97.8 degF Temperature Post -Dialysis 98 degF July 10, 2024 In-Center Hemodialysis Treatment 4070-36-89M35:14:24.000Z 3573-90-15L98:50:25.000Z BP Sitting (Pre-Dialysis) 173/80 mmHg BP Sitting (Post-Dialysis) 136/72 mmHg Concurrent Access: falseAV Graft Upper Arm (Left) Arterial Sitting Heart Rate Pre-Dialysis 84 BPM Sitting H eart Rate Post-Dialysis 69 BPM Temperature Pre-Dialysis 97.8 degF Temperature Post -Dialysis 98.2 degF July 08, 2024 In-Center Hemodialysis Treatment 4507-87-10N71:10:00.000Z 5283-36-49S92:40:24.000Z BP Sitting (Pre-Dialysis) 150/78 mmHg BP Sitting (Post-Dialysis) 136/69 mmHg Concurrent Access: falseAV Graft Upper Arm (Left) Arterial Sitting Heart Rate Pre-Dialysis 85 BPM Sitting H eart Rate Post-Dialysis 86 BPM Temperature Pre-Dialysis 97.3 degF Temperature Post -Dialysis 97.4 degF July 05, 2024 In-Center Hemodialysis Treatment 9205-04-26K49:07:24.000Z 8835-36-56L43:42:24.000Z BP Sitting (Pre-Dialysis) 142/71 mmHg BP Sitting (Post-Dialysis) 110/50 mmHg Concurrent Access: falseAV Graft Upper Arm (Left) Arterial Sitting Heart Rate Pre-Dialysis 83 BPM Sitting H eart Rate Post-Dialysis 57 BPM Temperature Pre-Dialysis 97.8 degF Temperature Post -Dialysis 97.6 degF July 03, 2024 In-Center Hemodialysis Treatment 4721-30-62R07:13:00.000Z 9151-56-78I50:49:25.000Z BP Sitting (Pre-Dialysis) 165/63 mmHg BP Sitting (Post-Dialysis) 126/65 mmHg Concurrent Access: falseAV Graft Upper Arm (Left) Arterial Sitting Heart Rate Pre-Dialysis 88 BPM Sitting H eart Rate Post-Dialysis 85 BPM Temperature Pre-Dialysis 98 degF Temperature Post -Dialysis 97.5 degF July 02, 2024 Additional Day Of Dialysis Treatment 4608-36-63B59:20:14.000Z 6258-03-31O00:18:14.000Z BP Sitting (Pre-Dialysis) 178/108 mmHg BP Sitting (Post-Dialysis) 125/68 mmHg Concurrent Access: falseAV Graft Upper Arm (Left) Arterial Sitting Heart Rate Pre-Dialysis 98 BPM Sitting H eart Rate Post-Dialysis 92 BPM Temperature Pre-Dialysis 97.8 degF Temperature Post -Dialysis 97.8 degF July 01, 2024 In-Center Hemodialysis Treatment 2202-61-65Y97:25:24.000Z 1306-43-83V54:54:25.000Z BP Sitting (Pre-Dialysis) 187/79 mmHg BP Sitting (Post-Dialysis) 137/62 mmHg Concurrent Access: falseAV Graft Upper Arm (Left) Arterial Sitting Heart Rate Pre-Dialysis 91 BPM Sitting H eart Rate Post-Dialysis 85 BPM Temperature Pre-Dialysis 97.8 degF Temperature Post -Dialysis 97.8 degF June 28, 2024 In-Center Hemodialysis Treatment 0187-61-60T71:29:00.000Z 2985-40-67J12:47:18.000Z BP Sitting (Pre-Dialysis) 50/72 mmHg BP Sitting (Post-Dialysis) 130/67 mmHg Concurrent Access: falseAV Graft Upper Arm (Left) Arterial Sitting Heart Rate Pre-Dialysis 83 BPM Sitting H eart Rate Post-Dialysis 79 BPM Temperature Pre-Dialysis 98 degF Temperature Post -Dialysis 97.8 degF June 26, 2024 In-Center Hemodialysis Treatment 5689-81-02W16:07:00.000Z 7544-58-87L34:33:18.000Z BP Sitting (Pre-Dialysis) 154/84 mmHg BP Sitting (Post-Dialysis) 158/71 mmHg Concurrent Access: falseAV Graft Upper Arm (Left) Arterial Sitting Heart Rate Pre-Dialysis 90 BPM Sitting H eart Rate Post-Dialysis 84 BPM Temperature Pre-Dialysis 97.3 degF Temperature Post -Dialysis 98.2 degF June 24, 2024 In-Center Hemodialysis Treatment 1939-85-85U31:14:18.000Z 1369-03-07U80:45:18.000Z BP Sitting (Pre-Dialysis) 138/69 mmHg BP Sitting (Post-Dialysis) 140/73 mmHg Concurrent Access: falseAV Graft Upper Arm (Left) Arterial Sitting Heart Rate Pre-Dialysis 87 BPM Sitting H eart Rate Post-Dialysis 87 BPM Temperature Pre-Dialysis 97.8 degF Temperature Post -Dialysis 98.2 degF June 21, 2024 In-Center Hemodialysis Treatment 7980-85-77H16:14:17.000Z 8677-32-36E82:47:18.000Z BP Sitting (Pre-Dialysis) 177/85 mmHg BP Sitting (Post-Dialysis) 130/68 mmHg Concurrent Access: falseAV Graft Upper Arm (Left) Arterial Sitting Heart Rate Pre-Dialysis 89 BPM BP Standing (Post-Dialysis) 138/63 mmHg Temperature Pre-Dialysis 98.6 degF Sitting Heart Ra te Post-Dialysis 84 BPM Standing Heart Rate Post-Luisa lysis 85 BPM Temperature Post-Dialysis 97 .9 degF June 19, 2024 In-Center Hemodialysis Treatment 2324-52-12T25:03:18.000Z 4242-85-13E97:36:18.000Z BP Sitting (Pre-Dialysis) 157/74 mmHg BP Sitting (Post-Dialysis) 154/69 mmHg Concurrent Access: falseAV Graft Upper Arm (Left) Arterial Sitting Heart Rate Pre-Dialysis 86 BPM Sitting H eart Rate Post-Dialysis 85 BPM Temperature Pre-Dialysis 97.8 degF Temperature Post -Dialysis 97 degF June 17, 2024 In-Center Hemodialysis Treatment 0184-11-55O06:15:00.000Z 2283-77-76T68:53:18.000Z BP Sitting (Pre-Dialysis) 168/81 mmHg BP Sitting (Post-Dialysis) 152/69 mmHg Concurrent Access: falseAV Graft Upper Arm (Left) Arterial Sitting Heart Rate Pre-Dialysis 87 BPM Sitting H eart Rate Post-Dialysis 84 BPM Temperature Pre-Dialysis 97.3 degF Temperature Post -Dialysis 98.4 degF June 14, 2024 In-Center Hemodialysis Treatment 1716-60-80F38:11:00.000Z 2817-10-44Z01:47:19.000Z BP Sitting (Pre-Dialysis) 200/83 mmHg BP Sitting (Post-Dialysis) 148/72 mmHg Concurrent Access: falseAV Graft Upper Arm (Left) Arterial Sitting Heart Rate Pre-Dialysis 88 BPM Sitting H eart Rate Post-Dialysis 84 BPM Temperature Pre-Dialysis 97.5 degF Temperature Post -Dialysis 97.2 degF June 12, 2024 In-Center Hemodialysis Treatment 7620-04-54I47:07:18.000Z 6282-67-54L20:39:19.000Z BP Sitting (Pre-Dialysis) 159/75 mmHg BP Sitting (Post-Dialysis) 125/72 mmHg Concurrent Access: falseAV Graft Upper Arm (Left) Arterial Sitting Heart Rate Pre-Dialysis 87 BPM Sitting H eart Rate Post-Dialysis 87 BPM Temperature Pre-Dialysis 98.2 degF Temperature Post -Dialysis 97.5 degF June 10, 2024 In-Center Hemodialysis Treatment 4660-43-51G46:16:00.000Z 5816-01-03J33:58:19.000Z BP Sitting (Pre-Dialysis) 170/89 mmHg BP Sitting (Post-Dialysis) 117/34 mmHg Concurrent Access: falseAV Graft Upper Arm (Left) Arterial Sitting Heart Rate Pre-Dialysis 86 BPM Sitting H eart Rate Post-Dialysis 82 BPM Temperature Pre-Dialysis 98 degF Temperature Post -Dialysis 98 degF June 07, 2024 In-Center Hemodialysis Treatment 6623-40-90E93:19:56.000Z 2003-86-20U73:51:56.000Z BP Sitting (Pre-Dialysis) 158/83 mmHg BP Sitting (Post-Dialysis) 129/67 mmHg Concurrent Access: falseAV Graft Upper Arm (Left) Arterial Sitting Heart Rate Pre-Dialysis 86 BPM Sitting H eart Rate Post-Dialysis 89 BPM Temperature Pre-Dialysis 97.5 degF Temperature Post -Dialysis 98.2 degF June 05, 2024 In-Center Hemodialysis Treatment 0069-30-62G76:12:56.000Z 1971-48-95R35:46:57.000Z BP Sitting (Pre-Dialysis) 193/85 mmHg BP Sitting (Post-Dialysis) 136/65 mmHg Concurrent Access: falseAV Graft Upper Arm (Left) Arterial Sitting Heart Rate Pre-Dialysis 81 BPM Sitting H eart Rate Post-Dialysis 83 BPM Temperature Pre-Dialysis 98 degF Temperature Post -Dialysis 98 degF June 03, 2024 In-Center Hemodialysis Treatment 8439-95-70E35:13:00.000Z 2548-78-37Q26:47:56.000Z BP Sitting (Pre-Dialysis) 154/73 mmHg BP Sitting (Post-Dialysis) 143/74 mmHg Concurrent Access: falseAV Graft Upper Arm (Left) Arterial Sitting Heart Rate Pre-Dialysis 77 BPM Sitting H eart Rate Post-Dialysis 87 BPM Temperature Pre-Dialysis 97.4 degF Temperature Post -Dialysis 97.3 degF May 31, 2024 In-Center Hemodialysis Treatment 7080-29-89O09:15:00.000Z 1812-62-98E19:52:43.000Z BP Sitting (Pre-Dialysis) 126/73 mmHg BP Sitting (Post-Dialysis) 123/55 mmHg Concurrent Access: falseAV Graft Upper Arm (Left) Arterial Sitting Heart Rate Pre-Dialysis 88 BPM Sitting H eart Rate Post-Dialysis 79 BPM Temperature Pre-Dialysis 97.9 degF Temperature Post -Dialysis 97.9 degF May 29, 2024 In-Center Hemodialysis Treatment 3566-06-90E82:18:43.000Z 2222-34-82Q15:50:43.000Z BP Sitting (Pre-Dialysis) 120/67 mmHg BP Sitting (Post-Dialysis) 138/56 mmHg Concurrent Access: falseAV Graft Upper Arm (Left) Arterial Sitting Heart Rate Pre-Dialysis 85 BPM Sitting H eart Rate Post-Dialysis 88 BPM Temperature Pre-Dialysis 97.8 degF Temperature Post -Dialysis 97.8 degF May 28, 2024 Additional Day Of Dialysis Treatment 5447-03-18H48:53:11.000Z 7937-40-98H62:21:12.000Z BP Sitting (Pre-Dialysis) 161/78 mmHg BP Sitting (Post-Dialysis) 156/84 mmHg Concurrent Access: falseAV Graft Upper Arm (Left) Arterial Sitting Heart Rate Pre-Dialysis 87 BPM Sitting H eart Rate Post-Dialysis 87 BPM Temperature Pre-Dialysis 97.9 degF Temperature Post -Dialysis 97.9 degF May 27, 2024 In-Center Hemodialysis Treatment 4118-96-48X46:23:43.000Z 0841-32-22H01:29:43.000Z BP Sitting (Pre-Dialysis) 168/80 mmHg BP Sitting (Post-Dialysis) 117/78 mmHg Concurrent Access: falseAV Graft Upper Arm (Left) Arterial Sitting Heart Rate Pre-Dialysis 90 BPM Sitting H eart Rate Post-Dialysis 81 BPM Temperature Pre-Dialysis 97.8 degF Temperature Post -Dialysis 97.8 degF May 24, 2024 In-Center Hemodialysis Treatment 9273-82-72O97:13:13.000Z 7171-57-60R15:51:13.000Z BP Sitting (Pre-Dialysis) 139/77 mmHg BP Sitting (Post-Dialysis) 140/66 mmHg Concurrent Access: falseAV Graft Upper Arm (Left) Arterial Sitting Heart Rate Pre-Dialysis 86 BPM Sitting H eart Rate Post-Dialysis 82 BPM Temperature Pre-Dialysis 97.8 degF Temperature Post -Dialysis 97.8 degF May 22, 2024 In-Center Hemodialysis Treatment 8940-49-24T53:10:49.000Z 6184-27-80S99:44:49.000Z BP Sitting (Pre-Dialysis) 142/77 mmHg BP Sitting (Post-Dialysis) 138/76 mmHg Concurrent Access: falseAV Graft Upper Arm (Left) Arterial Sitting Heart Rate Pre-Dialysis 82 BPM Sitting H eart Rate Post-Dialysis 84 BPM Temperature Pre-Dialysis 97.1 degF Temperature Post -Dialysis 97 degF May 20, 2024 In-Center Hemodialysis Treatment 6243-16-99Q51:05:00.000Z 6104-86-70M22:33:49.000Z BP Sitting (Pre-Dialysis) 155/74 mmHg BP Sitting (Post-Dialysis) 118/71 mmHg Concurrent Access: falseAV Graft Upper Arm (Left) Arterial Sitting Heart Rate Pre-Dialysis 79 BPM Sitting H eart Rate Post-Dialysis 89 BPM Temperature Pre-Dialysis 97 degF Temperature Post -Dialysis 97 degF May 17, 2024 In-Center Hemodialysis Treatment 2408-45-19N74:13:00.000Z 3270-59-42L15:47:49.000Z BP Sitting (Pre-Dialysis) 181/80 mmHg BP Sitting (Post-Dialysis) 156/66 mmHg Concurrent Access: falseAV Graft Upper Arm (Left) Arterial Sitting Heart Rate Pre-Dialysis 83 BPM Sitting H eart Rate Post-Dialysis 83 BPM Temperature Pre-Dialysis 97 degF Temperature Post -Dialysis 97 degF May 15, 2024 In-Center Hemodialysis Treatment 2885-38-33E68:15:13.000Z 2593-62-11R92:39:13.000Z BP Sitting (Pre-Dialysis) 119/65 mmHg BP Sitting (Post-Dialysis) 116/79 mmHg Concurrent Access: falseAV Graft Upper Arm (Left) Arterial Sitting Heart Rate Pre-Dialysis 86 BPM Sitting H eart Rate Post-Dialysis 88 BPM Temperature Pre-Dialysis 97.5 degF Temperature Post -Dialysis 97.5 degF May 13, 2024 In-Center Hemodialysis Treatment 4923-97-41G41:15:07.000Z 5059-46-25P07:47:07.000Z BP Sitting (Pre-Dialysis) 160/87 mmHg BP Sitting (Post-Dialysis) 161/81 mmHg Concurrent Access: falseAV Graft Upper Arm (Left) Arterial Sitting Heart Rate Pre-Dialysis 88 BPM Sitting H eart Rate Post-Dialysis 89 BPM Temperature Pre-Dialysis 97.5 degF Temperature Post -Dialysis 97.8 degF May 10, 2024 In-Center Hemodialysis Treatment 8112-21-53Z67:23:21.000Z 0263-51-53D24:48:21.000Z BP Sitting (Pre-Dialysis) 143/92 mmHg BP Sitting (Post-Dialysis) 150/77 mmHg Concurrent Access: falseAV Graft Upper Arm (Left) Arterial Sitting Heart Rate Pre-Dialysis 83 BPM Sitting H eart Rate Post-Dialysis 84 BPM Temperature Pre-Dialysis 97.5 degF Temperature Post -Dialysis 97.5 degF May 08, 2024 In-Center Hemodialysis Treatment 8709-70-81C22:01:21.000Z 9702-43-08Y75:32:21.000Z BP Sitting (Pre-Dialysis) 176/84 mmHg BP Sitting (Post-Dialysis) 135/77 mmHg Concurrent Access: falseAV Graft Upper Arm (Left) Arterial Sitting Heart Rate Pre-Dialysis 92 BPM Sitting H eart Rate Post-Dialysis 87 BPM Temperature Pre-Dialysis 97.5 degF Temperature Post -Dialysis 97.5 degF May 06, 2024 In-Center Hemodialysis Treatment 5109-14-37G84:09:00.000Z 5788-21-95F45:49:22.000Z BP Sitting (Pre-Dialysis) 176/84 mmHg BP Sitting (Post-Dialysis) 136/78 mmHg Concurrent Access: falseAV Graft Upper Arm (Left) Arterial Sitting Heart Rate Pre-Dialysis 94 BPM Sitting H eart Rate Post-Dialysis 87 BPM Temperature Pre-Dialysis 97.1 degF Temperature Post -Dialysis 97.2 degF May 03, 2024 In-Center Hemodialysis Treatment 5203-72-59H35:08:00.000Z 5813-02-65L43:41:10.000Z BP Sitting (Pre-Dialysis) 149/69 mmHg BP Sitting (Post-Dialysis) 123/73 mmHg Concurrent Access: falseAV Graft Upper Arm (Left) Arterial Sitting Heart Rate Pre-Dialysis 84 BPM Sitting H eart Rate Post-Dialysis 84 BPM Temperature Pre-Dialysis 97.9 degF Temperature Post -Dialysis 97.8 degF May 01, 2024 In-Center Hemodialysis Treatment 5681-61-01Z72:15:00.000Z 8138-75-69I65:49:10.000Z BP Sitting (Pre-Dialysis) 174/77 mmHg BP Sitting (Post-Dialysis) 128/70 mmHg Concurrent Access: falseAV Graft Upper Arm (Left) Arterial Sitting Heart Rate Pre-Dialysis 87 BPM Sitting H eart Rate Post-Dialysis 86 BPM Temperature Pre-Dialysis 97 degF Temperature Post -Dialysis 97.2 degF April 29, 2024 In-Center Hemodialysis Treatment 0477-46-99O39:10:00.000Z 8591-76-19O90:42:15.000Z BP Sitting (Pre-Dialysis) 186/86 mmHg BP Sitting (Post-Dialysis) 156/80 mmHg Concurrent Access: falseAV Graft Upper Arm (Left) Arterial Sitting Heart Rate Pre-Dialysis 93 BPM Sitting H eart Rate Post-Dialysis 89 BPM Temperature Pre-Dialysis 97.9 degF Temperature Post -Dialysis 97.9 degF April 26, 2024 In-Center Hemodialysis Treatment 5651-88-96R54:10:18.000Z 7010-01-04Z01:40:18.000Z BP Sitting (Pre-Dialysis) 194/80 mmHg BP Sitting (Post-Dialysis) 117/68 mmHg Concurrent Access: falseAV Graft Upper Arm (Left) Arterial Sitting Heart Rate Pre-Dialysis 93 BPM Sitting H eart Rate Post-Dialysis 83 BPM Temperature Pre-Dialysis 97.8 degF Temperature Post -Dialysis 97.8 degF April 24, 2024 In-Center Hemodialysis Treatment 8144-59-42N92:19:18.000Z 9302-77-98B34:46:18.000Z BP Sitting (Pre-Dialysis) 188/81 mmHg BP Sitting (Post-Dialysis) 174/90 mmHg Concurrent Access: falseAV Graft Upper Arm (Left) Arterial Sitting Heart Rate Pre-Dialysis 92 BPM Sitting H eart Rate Post-Dialysis 81 BPM Temperature Pre-Dialysis 97.6 degF Temperature Post -Dialysis 97.8 degF April 22, 2024 In-Center Hemodialysis Treatment 2245-76-67E35:19:18.000Z 3989-29-10K84:51:18.000Z BP Sitting (Pre-Dialysis) 178/86 mmHg BP Sitting (Post-Dialysis) 135/78 mmHg Concurrent Access: falseAV Graft Upper Arm (Left) Arterial Sitting Heart Rate Pre-Dialysis 92 BPM Sitting H eart Rate Post-Dialysis 84 BPM Temperature Pre-Dialysis 97.8 degF Temperature Post -Dialysis 97.8 degF April 19, 2024 In-Center Hemodialysis Treatment 6386-95-73U34:14:00.000Z 6910-35-13P29:45:06.000Z BP Sitting (Pre-Dialysis) 161/98 mmHg BP Sitting (Post-Dialysis) 161/79 mmHg Concurrent Access: falseAV Graft Upper Arm (Left) Arterial Sitting Heart Rate Pre-Dialysis 90 BPM Sitting H eart Rate Post-Dialysis 93 BPM Temperature Pre-Dialysis 97.9 degF Temperature Post -Dialysis 97.9 degF April 17, 2024 In-Center Hemodialysis Treatment 8163-69-08G59:11:00.000Z 6322-84-66X64:46:06.000Z BP Sitting (Pre-Dialysis) 181/80 mmHg BP Sitting (Post-Dialysis) 151/75 mmHg Concurrent Access: falseAV Graft Upper Arm (Left) Arterial Sitting Heart Rate Pre-Dialysis 96 BPM Sitting H eart Rate Post-Dialysis 89 BPM Temperature Pre-Dialysis 97.2 degF Temperature Post -Dialysis 97.2 degF April 15, 2024 In-Center Hemodialysis Treatment 2165-09-42C57:09:05.000Z 6410-16-47C50:44:06.000Z BP Sitting (Pre-Dialysis) 147/80 mmHg BP Sitting (Post-Dialysis) 148/69 mmHg Concurrent Access: falseAV Graft Upper Arm (Left) Arterial Sitting Heart Rate Pre-Dialysis 86 BPM Sitting H eart Rate Post-Dialysis 68 BPM Temperature Pre-Dialysis 97.6 degF Temperature Post -Dialysis 97.6 degF April 12, 2024 In-Center Hemodialysis Treatment 6856-37-65L24:22:00.000Z 7966-09-51C53:45:44.000Z BP Sitting (Pre-Dialysis) 191/81 mmHg BP Sitting (Post-Dialysis) 126/63 mmHg Concurrent Access: falseAV Graft Upper Arm (Left) Arterial Sitting Heart Rate Pre-Dialysis 95 BPM Sitting H eart Rate Post-Dialysis 90 BPM Temperature Pre-Dialysis 97.5 degF Temperature Post -Dialysis 97.3 degF April 10, 2024 In-Center Hemodialysis Treatment 6615-30-44T70:07:43.000Z 0244-27-18A28:38:44.000Z BP Sitting (Pre-Dialysis) 165/78 mmHg BP Sitting (Post-Dialysis) 149/85 mmHg Concurrent Access: falseAV Graft Upper Arm (Left) Arterial Sitting Heart Rate Pre-Dialysis 98 BPM Sitting H eart Rate Post-Dialysis 90 BPM Temperature Pre-Dialysis 97.8 degF Temperature Post -Dialysis 97.8 degF April 08, 2024 In-Center Hemodialysis Treatment 2365-54-48K67:10:00.000Z 0835-16-61D50:40:44.000Z BP Sitting (Pre-Dialysis) 172/79 mmHg BP Sitting (Post-Dialysis) 167/77 mmHg Concurrent Access: falseAV Graft Upper Arm (Left) Arterial Sitting Heart Rate Pre-Dialysis 92 BPM Sitting H eart Rate Post-Dialysis 89 BPM Temperature Pre-Dialysis 97.3 degF Temperature Post -Dialysis 97.1 degF April 05, 2024 In-Center Hemodialysis Treatment 5833-74-93Z69:11:00.000Z 8384-30-68X95:49:12.000Z BP Sitting (Pre-Dialysis) 183/81 mmHg BP Sitting (Post-Dialysis) 143/100 mmHg Concurrent Access: falseAV Graft Upper Arm (Left) Arterial Sitting Heart Rate Pre-Dialysis 101 BPM Sitting H eart Rate Post-Dialysis 94 BPM Temperature Pre-Dialysis 97.1 degF Temperature Post -Dialysis 97.8 degF April 03, 2024 In-Center Hemodialysis Treatment 8519-35-17A11:07:12.000Z 6796-96-98W66:37:12.000Z BP Sitting (Pre-Dialysis) 148/70 mmHg BP Sitting (Post-Dialysis) 141/75 mmHg Concurrent Access: falseAV Graft Upper Arm (Left) Arterial Sitting Heart Rate Pre-Dialysis 84 BPM Sitting H eart Rate Post-Dialysis 84 BPM Temperature Pre-Dialysis 97.6 degF Temperature Post -Dialysis 97.6 degF April 01, 2024 In-Center Hemodialysis Treatment 5979-53-17L25:15:00.000Z 0701-29-71O94:47:12.000Z BP Sitting (Pre-Dialysis) 177/88 mmHg BP Sitting (Post-Dialysis) 149/83 mmHg Concurrent Access: falseAV Graft Upper Arm (Left) Arterial Sitting Heart Rate Pre-Dialysis 95 BPM Sitting H eart Rate Post-Dialysis 86 BPM Temperature Pre-Dialysis 98 degF Temperature Post -Dialysis 97.4 degF March 29, 2024 In-Center Hemodialysis Treatment 7896-18-73Z88:15:00.000Z 0251-41-96F98:32:10.000Z BP Sitting (Pre-Dialysis) 182/80 mmHg BP Sitting (Post-Dialysis) 167/88 mmHg Concurrent Access: falseAV Graft Upper Arm (Left) Arterial Sitting Heart Rate Pre-Dialysis 92 BPM Sitting H eart Rate Post-Dialysis 85 BPM Temperature Pre-Dialysis 97.7 degF Temperature Post -Dialysis 97.6 degF March 27, 2024 In-Center Hemodialysis Treatment 2718-28-96S50:07:00.000Z 4945-55-71T56:45:10.000Z BP Sitting (Pre-Dialysis) 164/90 mmHg BP Sitting (Post-Dialysis) 176/85 mmHg Concurrent Access: falseAV Graft Upper Arm (Left) Arterial Sitting Heart Rate Pre-Dialysis 92 BPM Sitting H eart Rate Post-Dialysis 85 BPM Temperature Pre-Dialysis 97.8 degF Temperature Post -Dialysis 97.8 degF March 25, 2024 In-Center Hemodialysis Treatment 0082-20-82W28:55:00.000Z 8863-94-87M52:32:56.000Z BP Sitting (Pre-Dialysis) 182/79 mmHg BP Sitting (Post-Dialysis) 152/73 mmHg Concurrent Access: falseAV Graft Upper Arm (Left) Arterial Sitting Heart Rate Pre-Dialysis 88 BPM Sitting H eart Rate Post-Dialysis 82 BPM Temperature Pre-Dialysis 97.6 degF Temperature Post -Dialysis 97.8 degF March 22, 2024 In-Center Hemodialysis Treatment 5429-71-72A88:58:00.000Z 5671-35-16U76:33:48.000Z BP Sitting (Pre-Dialysis) 142/70 mmHg BP Sitting (Post-Dialysis) 111/71 mmHg Concurrent Access: falseAV Graft Upper Arm (Left) Arterial Sitting Heart Rate Pre-Dialysis 86 BPM Sitting H eart Rate Post-Dialysis 83 BPM Temperature Pre-Dialysis 97.6 degF March 20, 2024 In-Center Hemodialysis Treatment 6825-78-64O39:20:48.000Z 9848-59-23Y96:46:48.000Z BP Sitting (Pre-Dialysis) 188/93 mmHg BP Sitting (Post-Dialysis) 141/80 mmHg Concurrent Access: falseAV Graft Upper Arm (Left) Arterial Sitting Heart Rate Pre-Dialysis 92 BPM Sitting H eart Rate Post-Dialysis 81 BPM Temperature Pre-Dialysis 97.5 degF Temperature Post -Dialysis 97.8 degF March 18, 2024 In-Center Hemodialysis Treatment 4345-45-65C15:11:00.000Z 2026-47-96D63:45:48.000Z BP Sitting (Pre-Dialysis) 193/87 mmHg BP Sitting (Post-Dialysis) 160/80 mmHg Concurrent Access: falseAV Graft Upper Arm (Left) Arterial Sitting Heart Rate Pre-Dialysis 88 BPM Sitting H eart Rate Post-Dialysis 78 BPM Temperature Pre-Dialysis 97.7 degF Temperature Post -Dialysis 97.8 degF March 15, 2024 In-Center Hemodialysis Treatment 8962-10-47I93:16:41.000Z 5671-98-12T29:48:41.000Z BP Sitting (Pre-Dialysis) 127/65 mmHg BP Sitting (Post-Dialysis) 156/80 mmHg Concurrent Access: falseAV Graft Upper Arm (Left) Arterial Sitting Heart Rate Pre-Dialysis 85 BPM BP Standing (Post-Dialysis) 142/72 mmHg Temperature Pre-Dialysis 97.8 degF Sitting Heart Ra te Post-Dialysis 77 BPM Standing Heart Rate Post-Luisa lysis 75 BPM Temperature Post-Dialysis 97 .8 degF March 13, 2024 In-Center Hemodialysis Treatment 7168-36-51G82:04:00.000Z 1230-60-38J56:38:41.000Z BP Sitting (Pre-Dialysis) 148/78 mmHg BP Sitting (Post-Dialysis) 115/73 mmHg Concurrent Access: falseAV Graft Upper Arm (Left) Arterial Sitting Heart Rate Pre-Dialysis 100 BPM Sitting H eart Rate Post-Dialysis 85 BPM Temperature Pre-Dialysis 98.2 degF Temperature Post -Dialysis 97.8 degF March 11, 2024 In-Center Hemodialysis Treatment 5246-90-26L01:09:00.000Z 8847-80-49T17:41:41.000Z BP Sitting (Pre-Dialysis) 176/85 mmHg BP Sitting (Post-Dialysis) 133/66 mmHg Concurrent Access: falseAV Graft Upper Arm (Left) Arterial Sitting Heart Rate Pre-Dialysis 98 BPM Sitting H eart Rate Post-Dialysis 85 BPM Temperature Pre-Dialysis 98 degF Temperature Post -Dialysis 97.5 degF March 08, 2024 In-Center Hemodialysis Treatment 8492-27-07W05:08:00.000Z 2626-66-66L28:38:09.000Z BP Sitting (Pre-Dialysis) 178/80 mmHg BP Sitting (Post-Dialysis) 146/74 mmHg Concurrent Access: falseAV Graft Upper Arm (Left) Arterial Sitting Heart Rate Pre-Dialysis 96 BPM Sitting H eart Rate Post-Dialysis 82 BPM Temperature Pre-Dialysis 97.9 degF Temperature Post -Dialysis 97.6 degF March 06, 2024 In-Center Hemodialysis Treatment 4492-43-76H77:06:00.000Z 8363-28-02T63:41:09.000Z BP Sitting (Pre-Dialysis) 173/79 mmHg BP Sitting (Post-Dialysis) 122/73 mmHg Concurrent Access: falseAV Graft Upper Arm (Left) Arterial Sitting Heart Rate Pre-Dialysis 93 BPM Sitting H eart Rate Post-Dialysis 88 BPM Temperature Pre-Dialysis 97.6 degF Temperature Post -Dialysis 97.5 degF March 04, 2024 In-Center Hemodialysis Treatment 4823-69-48K96:05:00.000Z 8102-32-67J67:40:09.000Z BP Sitting (Pre-Dialysis) 148/77 mmHg BP Sitting (Post-Dialysis) 127/70 mmHg Concurrent Access: falseAV Graft Upper Arm (Left) Arterial Sitting Heart Rate Pre-Dialysis 83 BPM Sitting H eart Rate Post-Dialysis 80 BPM Temperature Pre-Dialysis 97.5 degF Temperature Post -Dialysis 97.3 degF March 01, 2024 In-Center Hemodialysis Treatment 7034-46-33W28:04:00.000Z 7959-82-07U94:40:06.000Z BP Sitting (Pre-Dialysis) 173/75 mmHg BP Sitting (Post-Dialysis) 122/72 mmHg Concurrent Access: falseAV Graft Upper Arm (Left) Arterial Sitting Heart Rate Pre-Dialysis 94 BPM Sitting H eart Rate Post-Dialysis 83 BPM Temperature Pre-Dialysis 97.6 degF Temperature Post -Dialysis 97.5 degF February 28, 2024 In-Center Hemodialysis Treatment 2214-52-22P11:00:00.000Z 3053-44-99C46:36:08.000Z BP Sitting (Pre-Dialysis) 144/75 mmHg BP Sitting (Post-Dialysis) 123/73 mmHg Concurrent Access: falseAV Graft Upper Arm (Left) Arterial Sitting Heart Rate Pre-Dialysis 79 BPM Sitting H eart Rate Post-Dialysis 83 BPM Temperature Pre-Dialysis 97.5 degF Temperature Post -Dialysis 97.5 degF February 26, 2024 In-Center Hemodialysis Treatment 1210-37-61V52:14:00.000Z 9947-20-60A28:47:08.000Z BP Sitting (Pre-Dialysis) 155/79 mmHg BP Sitting (Post-Dialysis) 136/69 mmHg Concurrent Access: falseAV Graft Upper Arm (Left) Arterial Sitting Heart Rate Pre-Dialysis 88 BPM Sitting H eart Rate Post-Dialysis 82 BPM Temperature Pre-Dialysis 97.6 degF Temperature Post -Dialysis 97.6 degF February 23, 2024 In-Center Hemodialysis Treatment 6526-19-02B60:05:00.000Z 2916-41-20X21:43:18.000Z BP Sitting (Pre-Dialysis) 189/83 mmHg BP Sitting (Post-Dialysis) 140/68 mmHg Concurrent Access: falseAV Graft Upper Arm (Left) Arterial Sitting Heart Rate Pre-Dialysis 92 BPM Sitting H eart Rate Post-Dialysis 85 BPM Temperature Pre-Dialysis 97.8 degF Temperature Post -Dialysis 97 degF February 21, 2024 In-Center Hemodialysis Treatment 6488-20-43E03:08:00.000Z 8566-96-44R54:42:18.000Z BP Sitting (Pre-Dialysis) 167/74 mmHg BP Sitting (Post-Dialysis) 130/71 mmHg Concurrent Access: falseAV Graft Upper Arm (Left) Arterial Sitting Heart Rate Pre-Dialysis 95 BPM Sitting H eart Rate Post-Dialysis 84 BPM Temperature Pre-Dialysis 97.8 degF Temperature Post -Dialysis 97 degF February 19, 2024 In-Center Hemodialysis Treatment 7976-12-77T94:11:00.000Z 2147-92-95K78:45:54.000Z BP Sitting (Pre-Dialysis) 130/72 mmHg BP Sitting (Post-Dialysis) 156/83 mmHg Concurrent Access: falseAV Graft Upper Arm (Left) Arterial Sitting Heart Rate Pre-Dialysis 86 BPM Sitting H eart Rate Post-Dialysis 81 BPM Temperature Pre-Dialysis 97.8 degF Temperature Post -Dialysis 97.9 degF February 16, 2024 In-Center Hemodialysis Treatment 1689-97-25D19:18:00.000Z 8532-87-82X22:47:49.000Z BP Sitting (Pre-Dialysis) 176/79 mmHg BP Sitting (Post-Dialysis) 132/47 mmHg Concurrent Access: falseAV Graft Upper Arm (Left) Arterial Sitting Heart Rate Pre-Dialysis 76 BPM Sitting H eart Rate Post-Dialysis 83 BPM Temperature Pre-Dialysis 97.8 degF Temperature Post -Dialysis 97.4 degF February 14, 2024 In-Center Hemodialysis Treatment 4308-19-71F88:03:00.000Z 7002-84-00Z07:39:22.000Z BP Sitting (Pre-Dialysis) 101/86 mmHg BP Sitting (Post-Dialysis) 144/63 mmHg Concurrent Access: falseAV Graft Upper Arm (Left) Arterial Sitting Heart Rate Pre-Dialysis 89 BPM Sitting H eart Rate Post-Dialysis 87 BPM Temperature Pre-Dialysis 97.4 degF Temperature Post -Dialysis 97.8 degF February 12, 2024 In-Center Hemodialysis Treatment 9027-53-38N64:14:00.000Z 6922-03-55Z81:37:22.000Z BP Sitting (Pre-Dialysis) 144/69 mmHg BP Sitting (Post-Dialysis) 117/72 mmHg Concurrent Access: falseAV Graft Upper Arm (Left) Arterial Sitting Heart Rate Pre-Dialysis 91 BPM Sitting H eart Rate Post-Dialysis 87 BPM Temperature Pre-Dialysis 97.3 degF February 09, 2024 In-Center Hemodialysis Treatment 5555-02-11B51:12:00.000Z 4156-66-07H01:49:46.000Z BP Sitting (Pre-Dialysis) 206/144 mmHg BP Sitting (Post-Dialysis) 126/69 mmHg Concurrent Access: falseAV Graft Upper Arm (Left) Arterial Sitting Heart Rate Pre-Dialysis 93 BPM Sitting H eart Rate Post-Dialysis 85 BPM Temperature Pre-Dialysis 97.4 degF Temperature Post -Dialysis 97.6 degF February 07, 2024 In-Center Hemodialysis Treatment 4465-95-88Z11:05:00.000Z 6884-87-57K54:43:45.000Z BP Sitting (Pre-Dialysis) 151/70 mmHg BP Sitting (Post-Dialysis) 136/73 mmHg Concurrent Access: falseAV Graft Upper Arm (Left) Arterial Sitting Heart Rate Pre-Dialysis 83 BPM Sitting H eart Rate Post-Dialysis 85 BPM Temperature Pre-Dialysis 97.4 degF Temperature Post -Dialysis 97.8 degF February 05, 2024 In-Center Hemodialysis Treatment 6993-02-92U59:15:00.000Z 1649-84-22F04:49:45.000Z BP Sitting (Pre-Dialysis) 159/75 mmHg BP Sitting (Post-Dialysis) 152/68 mmHg Concurrent Access: falseAV Graft Upper Arm (Left) Arterial Sitting Heart Rate Pre-Dialysis 85 BPM Sitting H eart Rate Post-Dialysis 83 BPM Temperature Pre-Dialysis 97.5 degF Temperature Post -Dialysis 98 degF February 02, 2024 In-Center Hemodialysis Treatment 2579-42-48K73:08:00.000Z 0140-05-46K73:41:47.000Z BP Sitting (Pre-Dialysis) 140/84 mmHg BP Sitting (Post-Dialysis) 133/70 mmHg Concurrent Access: falseAV Graft Upper Arm (Left) Arterial Sitting Heart Rate Pre-Dialysis 91 BPM Sitting H eart Rate Post-Dialysis 83 BPM Temperature Pre-Dialysis 97.5 degF Temperature Post -Dialysis 98 degF January 31, 2024 In-Center Hemodialysis Treatment 3548-42-02P52:06:00.000Z 3329-58-38K54:43:47.000Z BP Sitting (Pre-Dialysis) 153/66 mmHg BP Sitting (Post-Dialysis) 132/77 mmHg Concurrent Access: falseAV Graft Upper Arm (Left) Arterial Sitting Heart Rate Pre-Dialysis 87 BPM Sitting H eart Rate Post-Dialysis 93 BPM Temperature Pre-Dialysis 97.4 degF Temperature Post -Dialysis 97.8 degF January 29, 2024 In-Center Hemodialysis Treatment 0102-92-08V74:08:00.000Z 0288-20-70S98:41:47.000Z BP Sitting (Pre-Dialysis) 156/66 mmHg BP Sitting (Post-Dialysis) 118/66 mmHg Concurrent Access: falseAV Graft Upper Arm (Left) Arterial Sitting Heart Rate Pre-Dialysis 90 BPM Sitting H eart Rate Post-Dialysis 84 BPM Temperature Pre-Dialysis 97.5 degF Temperature Post -Dialysis 97.5 degF January 26, 2024 In-Center Hemodialysis Treatment 0977-10-41P74:03:00.000Z 3128-90-49L85:43:32.000Z BP Sitting (Pre-Dialysis) 159/70 mmHg BP Sitting (Post-Dialysis) 117/68 mmHg Concurrent Access: falseAV Graft Upper Arm (Left) Arterial BP Standing (Pre-Dialysis) 159/70 mmHg Sitting Heart Rate Post-Dialysis 85 BPM Sitting Heart Rate Pre-Dialysis 91 BPM Standing Heart Rate Pre-Dialysis 91 BPM Temperature Pre-Dialysis 97.6 degF January 24, 2024 In-Center Hemodialysis Treatment 5057-04-33G47:07:00.000Z 5997-93-05L90:45:33.000Z BP Sitting (Pre-Dialysis) 117/72 mmHg BP Sitting (Post-Dialysis) 121/84 mmHg Concurrent Access: falseAV Graft Upper Arm (Left) Arterial Sitting Heart Rate Pre-Dialysis 97 BPM Sitting H eart Rate Post-Dialysis 87 BPM Temperature Pre-Dialysis 98 degF Temperature Post -Dialysis 97.5 degF January 23, 2024 In-Center Hemodialysis Treatment 5746-55-64P12:15:00.000Z 9608-78-00Z20:54:44.000Z BP Sitting (Pre-Dialysis) 129/68 mmHg BP Sitting (Post-Dialysis) 123/68 mmHg Concurrent Access: falseAV Graft Upper Arm (Left) Arterial Sitting Heart Rate Pre-Dialysis 83 BPM Sitting H eart Rate Post-Dialysis 76 BPM Temperature Pre-Dialysis 97.8 degF Temperature Post -Dialysis 98 degF January 19, 2024 In-Center Hemodialysis Treatment 5558-86-98T48:11:20.000Z 2222-91-62Q62:45:21.000Z BP Sitting (Pre-Dialysis) 122/65 mmHg BP Sitting (Post-Dialysis) 123/73 mmHg Concurrent Access: falseAV Graft Upper Arm (Left) Arterial Sitting Heart Rate Pre-Dialysis 71 BPM Sitting H eart Rate Post-Dialysis 80 BPM Temperature Pre-Dialysis 97.8 degF January 17, 2024 In-Center Hemodialysis Treatment 4324-46-28G36:04:00.000Z 3932-61-37A77:40:00.000Z BP Sitting (Pre-Dialysis) 127/69 mmHg BP Sitting (Post-Dialysis) 122/66 mmHg Concurrent Access: falseAV Graft Upper Arm (Left) Arterial Sitting Heart Rate Pre-Dialysis 88 BPM Sitting H eart Rate Post-Dialysis 83 BPM Temperature Pre-Dialysis 97.5 degF Temperature Post -Dialysis 97.8 degF January 15, 2024 In-Center Hemodialysis Treatment 1039-28-26I90:12:00.000Z 2724-85-34Y94:49:08.000Z BP Sitting (Pre-Dialysis) 160/71 mmHg BP Sitting (Post-Dialysis) 122/59 mmHg Concurrent Access: falseAV Graft Upper Arm (Left) Arterial Sitting Heart Rate Pre-Dialysis 87 BPM Sitting H eart Rate Post-Dialysis 82 BPM Temperature Pre-Dialysis 97.6 degF January 12, 2024 In-Center Hemodialysis Treatment 3223-39-28S79:13:00.000Z 2253-59-23M25:47:16.000Z BP Sitting (Pre-Dialysis) 166/80 mmHg BP Sitting (Post-Dialysis) 131/69 mmHg Concurrent Access: falseAV Graft Upper Arm (Left) Arterial Sitting Heart Rate Pre-Dialysis 95 BPM Sitting H eart Rate Post-Dialysis 84 BPM Temperature Pre-Dialysis 97.4 degF Temperature Post -Dialysis 97.5 degF January 10, 2024 In-Center Hemodialysis Treatment 8253-04-87V52:07:16.000Z 5661-69-21S20:34:16.000Z BP Sitting (Pre-Dialysis) 146/71 mmHg BP Sitting (Post-Dialysis) 126/77 mmHg Concurrent Access: falseAV Graft Upper Arm (Left) Arterial Sitting Heart Rate Pre-Dialysis 84 BPM Sitting H eart Rate Post-Dialysis 77 BPM Temperature Pre-Dialysis 97.6 degF Temperature Post -Dialysis 97.3 degF January 08, 2024 In-Center Hemodialysis Treatment 9816-02-50R39:10:00.000Z 2798-48-37M79:46:16.000Z BP Sitting (Pre-Dialysis) 153/77 mmHg BP Sitting (Post-Dialysis) 132/78 mmHg Concurrent Access: falseAV Graft Upper Arm (Left) Arterial Sitting Heart Rate Pre-Dialysis 88 BPM Sitting H eart Rate Post-Dialysis 83 BPM Temperature Pre-Dialysis 97.6 degF Temperature Post -Dialysis 98 degF January 05, 2024 In-Center Hemodialysis Treatment 5645-87-50J40:08:00.000Z 5113-21-41Y51:34:31.000Z BP Sitting (Pre-Dialysis) 144/73 mmHg BP Sitting (Post-Dialysis) 115/72 mmHg Concurrent Access: falseAV Graft Upper Arm (Left) Arterial Sitting Heart Rate Pre-Dialysis 87 BPM Sitting H eart Rate Post-Dialysis 82 BPM Temperature Pre-Dialysis 97.9 degF Temperature Post -Dialysis 97.9 degF January 03, 2024 In-Center Hemodialysis Treatment 5511-87-18M63:04:00.000Z 9438-88-14Y34:38:38.000Z BP Sitting (Pre-Dialysis) 135/75 mmHg BP Sitting (Post-Dialysis) 130/69 mmHg Concurrent Access: falseAV Graft Upper Arm (Left) Arterial Sitting Heart Rate Pre-Dialysis 82 BPM Sitting H eart Rate Post-Dialysis 82 BPM Temperature Pre-Dialysis 97.6 degF Temperature Post -Dialysis 97.8 degF January 01, 2024 In-Center Hemodialysis Treatment 9109-05-19K40:06:00.000Z 7927-18-23U02:40:31.000Z BP Sitting (Pre-Dialysis) 135/68 mmHg BP Sitting (Post-Dialysis) 91/68 mmHg Concurrent Access: falseAV Graft Upper Arm (Left) Arterial Sitting Heart Rate Pre-Dialysis 90 BPM Sitting H eart Rate Post-Dialysis 66 BPM Temperature Pre-Dialysis 97.5 degF Temperature Post -Dialysis 97.8 degF December 29, 2023 In-Center Hemodialysis Treatment 3880-17-78R37:06:22.000Z 4189-76-52Z58:35:22.000Z BP Sitting (Pre-Dialysis) 132/69 mmHg BP Sitting (Post-Dialysis) 109/66 mmHg Concurrent Access: falseAV Graft Upper Arm (Left) Arterial Sitting Heart Rate Pre-Dialysis 83 BPM Sitting H eart Rate Post-Dialysis 82 BPM Temperature Pre-Dialysis 97.6 degF Temperature Post -Dialysis 97.9 degF December 27, 2023 In-Center Hemodialysis Treatment 1919-99-52H62:19:00.000Z 6017-41-61O81:53:13.000Z BP Sitting (Pre-Dialysis) 184/142 mmHg BP Sitting (Post-Dialysis) 121/63 mmHg Concurrent Access: falseAV Graft Upper Arm (Left) Arterial Sitting Heart Rate Pre-Dialysis 91 BPM Sitting H eart Rate Post-Dialysis 83 BPM Temperature Pre-Dialysis 97.5 degF Temperature Post -Dialysis 97.5 degF December 25, 2023 In-Center Hemodialysis Treatment 3863-14-35Y54:08:00.000Z 7701-87-73M42:41:12.000Z BP Sitting (Pre-Dialysis) 153/75 mmHg BP Sitting (Post-Dialysis) 143/71 mmHg Concurrent Access: falseAV Graft Upper Arm (Left) Arterial Sitting Heart Rate Pre-Dialysis 90 BPM Sitting H eart Rate Post-Dialysis 81 BPM Temperature Pre-Dialysis 97.6 degF Temperature Post -Dialysis 97.6 degF December 22, 2023 In-Center Hemodialysis Treatment 0813-92-24T21:17:00.000Z 7740-67-05F88:53:43.000Z BP Sitting (Pre-Dialysis) 182/77 mmHg BP Sitting (Post-Dialysis) 153/83 mmHg Concurrent Access: falseAV Graft Upper Arm (Left) Arterial Sitting Heart Rate Pre-Dialysis 87 BPM Sitting H eart Rate Post-Dialysis 86 BPM Temperature Pre-Dialysis 97.6 degF Temperature Post -Dialysis 97.8 degF December 20, 2023 In-Center Hemodialysis Treatment 0177-35-29K73:10:00.000Z 1559-47-74Q16:42:24.000Z BP Sitting (Pre-Dialysis) 168/115 mmHg BP Sitting (Post-Dialysis) 119/75 mmHg Concurrent Access: falseAV Graft Upper Arm (Left) Arterial Sitting Heart Rate Pre-Dialysis 94 BPM Sitting H eart Rate Post-Dialysis 84 BPM Temperature Pre-Dialysis 97.9 degF Temperature Post -Dialysis 97.9 degF December 18, 2023 In-Center Hemodialysis Treatment 9794-60-46N13:10:00.000Z 2134-64-32A45:48:43.000Z BP Sitting (Pre-Dialysis) 131/73 mmHg BP Sitting (Post-Dialysis) 132/63 mmHg Concurrent Access: falseAV Graft Upper Arm (Left) Arterial Sitting Heart Rate Pre-Dialysis 89 BPM Sitting H eart Rate Post-Dialysis 82 BPM Temperature Pre-Dialysis 97.6 degF Temperature Post -Dialysis 97.6 degF December 15, 2023 In-Center Hemodialysis Treatment 9796-02-81Q20:14:16.000Z 4909-98-07V29:47:16.000Z BP Sitting (Pre-Dialysis) 136/68 mmHg BP Sitting (Post-Dialysis) 117/61 mmHg Concurrent Access: falseAV Graft Upper Arm (Left) Arterial Sitting Heart Rate Pre-Dialysis 86 BPM Sitting H eart Rate Post-Dialysis 81 BPM Temperature Pre-Dialysis 97.5 degF Temperature Post -Dialysis 97.5 degF December 13, 2023 In-Center Hemodialysis Treatment 7910-50-25I77:15:00.000Z 7130-85-64F48:48:50.000Z BP Sitting (Pre-Dialysis) 151/76 mmHg BP Sitting (Post-Dialysis) 130/66 mmHg Concurrent Access: falseAV Graft Upper Arm (Left) Arterial Sitting Heart Rate Pre-Dialysis 88 BPM Sitting H eart Rate Post-Dialysis 88 BPM Temperature Pre-Dialysis 97.6 degF Temperature Post -Dialysis 97.5 degF December 11, 2023 In-Center Hemodialysis Treatment 3887-06-22H59:14:50.000Z 1117-16-85B30:35:50.000Z BP Sitting (Pre-Dialysis) 136/75 mmHg BP Sitting (Post-Dialysis) 135/78 mmHg Concurrent Access: falseAV Graft Upper Arm (Left) Arterial Sitting Heart Rate Pre-Dialysis 87 BPM Sitting H eart Rate Post-Dialysis 84 BPM Temperature Pre-Dialysis 97.8 degF Temperature Post -Dialysis 97.6 degF December 08, 2023 In-Center Hemodialysis Treatment 5761-25-03Y03:07:00.000Z 1331-35-16I18:40:07.000Z BP Sitting (Pre-Dialysis) 175/80 mmHg BP Sitting (Post-Dialysis) 131/78 mmHg Concurrent Access: falseAV Graft Upper Arm (Left) Arterial Sitting Heart Rate Pre-Dialysis 92 BPM Sitting H eart Rate Post-Dialysis 90 BPM Temperature Pre-Dialysis 97.9 degF Temperature Post -Dialysis 97.9 degF December 06, 2023 In-Center Hemodialysis Treatment 7226-45-52P21:14:00.000Z 8037-88-54D10:47:15.000Z BP Sitting (Pre-Dialysis) 150/110 mmHg BP Sitting (Post-Dialysis) 124/66 mmHg Concurrent Access: falseAV Graft Upper Arm (Left) Arterial Sitting Heart Rate Pre-Dialysis 84 BPM Sitting H eart Rate Post-Dialysis 85 BPM Temperature Pre-Dialysis 97.8 degF Temperature Post -Dialysis 97.4 degF December 04, 2023 In-Center Hemodialysis Treatment 6868-05-83Y03:10:00.000Z 0181-73-29F03:44:00.000Z BP Sitting (Pre-Dialysis) 140/73 mmHg BP Sitting (Post-Dialysis) 127/73 mmHg Concurrent Access: falseAV Graft Upper Arm (Left) Arterial Sitting Heart Rate Pre-Dialysis 92 BPM Sitting H eart Rate Post-Dialysis 87 BPM Temperature Pre-Dialysis 97.8 degF December 01, 2023 In-Center Hemodialysis Treatment 5365-85-20N04:11:00.000Z 9547-14-50H68:48:55.000Z BP Sitting (Pre-Dialysis) 160/73 mmHg BP Sitting (Post-Dialysis) 142/83 mmHg Concurrent Access: falseAV Graft Upper Arm (Left) Arterial Sitting Heart Rate Pre-Dialysis 94 BPM Sitting H eart Rate Post-Dialysis 81 BPM Temperature Pre-Dialysis 97.5 degF Temperature Post -Dialysis 97.6 degF November 29, 2023 In-Center Hemodialysis Treatment 1056-37-50S36:36:00.000Z 3868-96-48U30:50:55.000Z BP Sitting (Pre-Dialysis) 168/84 mmHg BP Sitting (Post-Dialysis) 142/84 mmHg Concurrent Access: falseAV Graft Upper Arm (Left) Arterial Sitting Heart Rate Pre-Dialysis 94 BPM Sitting H eart Rate Post-Dialysis 83 BPM Temperature Pre-Dialysis 97.6 degF Temperature Post -Dialysis 98 degF November 27, 2023 In-Center Hemodialysis Treatment 4620-37-47Z34:21:00.000Z 5913-07-06B46:58:55.000Z BP Sitting (Pre-Dialysis) 141/75 mmHg BP Sitting (Post-Dialysis) 128/64 mmHg Concurrent Access: falseAV Graft Upper Arm (Left) Arterial Sitting Heart Rate Pre-Dialysis 98 BPM Sitting H eart Rate Post-Dialysis 82 BPM Temperature Pre-Dialysis 98.2 degF Temperature Post -Dialysis 98 degF November 24, 2023 In-Center Hemodialysis Treatment 1630-62-42Z26:14:00.000Z 4774-81-41U59:21:11.000Z BP Sitting (Pre-Dialysis) 118/66 mmHg BP Sitting (Post-Dialysis) 140/79 mmHg Concurrent Access: falseAV Graft Upper Arm (Left) Arterial Sitting Heart Rate Pre-Dialysis 90 BPM Sitting H eart Rate Post-Dialysis 81 BPM Temperature Pre-Dialysis 97.8 degF Temperature Post -Dialysis 97.9 degF November 22, 2023 In-Center Hemodialysis Treatment 6306-77-99U20:14:00.000Z 9110-96-91N60:46:43.000Z BP Sitting (Pre-Dialysis) 147/81 mmHg BP Sitting (Post-Dialysis) 142/75 mmHg Concurrent Access: falseAV Graft Upper Arm (Left) Arterial Sitting Heart Rate Pre-Dialysis 90 BPM Sitting H eart Rate Post-Dialysis 81 BPM Temperature Pre-Dialysis 97.9 degF Temperature Post -Dialysis 97.9 degF November 20, 2023 In-Center Hemodialysis Treatment 5460-15-32E50:18:43.000Z 6277-52-38L68:50:43.000Z BP Sitting (Pre-Dialysis) 139/79 mmHg BP Sitting (Post-Dialysis) 138/68 mmHg Concurrent Access: falseAV Graft Upper Arm (Left) Arterial Sitting Heart Rate Pre-Dialysis 93 BPM Sitting H eart Rate Post-Dialysis 85 BPM Temperature Pre-Dialysis 97 degF November 17, 2023 In-Center Hemodialysis Treatment 2686-41-39R98:11:23.000Z 9266-61-06E37:43:23.000Z BP Sitting (Pre-Dialysis) 142/65 mmHg BP Sitting (Post-Dialysis) 111/73 mmHg Concurrent Access: falseAV Graft Upper Arm (Left) Arterial Sitting Heart Rate Pre-Dialysis 86 BPM Sitting H eart Rate Post-Dialysis 81 BPM Temperature Pre-Dialysis 97.9 degF Temperature Post -Dialysis 97.6 degF November 15, 2023 In-Center Hemodialysis Treatment 3097-64-82I68:17:23.000Z 7551-75-45V27:51:23.000Z BP Sitting (Pre-Dialysis) 138/69 mmHg BP Sitting (Post-Dialysis) 131/66 mmHg Concurrent Access: falseAV Graft Upper Arm (Left) Arterial Sitting Heart Rate Pre-Dialysis 85 BPM Sitting H eart Rate Post-Dialysis 78 BPM Temperature Pre-Dialysis 97.8 degF Temperature Post -Dialysis 98 degF November 13, 2023 In-Center Hemodialysis Treatment 2132-17-27L67:14:00.000Z 8855-50-20K03:51:23.000Z BP Sitting (Pre-Dialysis) 125/89 mmHg BP Sitting (Post-Dialysis) 138/73 mmHg Concurrent Access: falseAV Graft Upper Arm (Left) Arterial Sitting Heart Rate Pre-Dialysis 85 BPM Sitting H eart Rate Post-Dialysis 78 BPM Temperature Pre-Dialysis 97.9 degF Temperature Post -Dialysis 97.5 degF November 10, 2023 In-Center Hemodialysis Treatment 6912-81-59W28:17:00.000Z 5269-22-74J62:54:12.000Z BP Sitting (Pre-Dialysis) 188/77 mmHg BP Sitting (Post-Dialysis) 149/77 mmHg Concurrent Access: falseAV Graft Upper Arm (Left) Arterial Sitting Heart Rate Pre-Dialysis 87 BPM Sitting H eart Rate Post-Dialysis 81 BPM Temperature Pre-Dialysis 97.9 degF Temperature Post -Dialysis 97.3 degF November 08, 2023 In-Center Hemodialysis Treatment 3506-25-45R06:17:25.000Z 0084-71-14A83:50:26.000Z BP Sitting (Pre-Dialysis) 128/71 mmHg BP Sitting (Post-Dialysis) 130/68 mmHg Concurrent Access: falseAV Graft Upper Arm (Left) Arterial Sitting Heart Rate Pre-Dialysis 94 BPM Sitting H eart Rate Post-Dialysis 90 BPM Temperature Pre-Dialysis 97.5 degF Temperature Post -Dialysis 97.6 degF November 06, 2023 In-Center Hemodialysis Treatment 7903-62-50H93:20:48.000Z 8206-77-34X20:58:49.000Z BP Sitting (Pre-Dialysis) 147/93 mmHg BP Sitting (Post-Dialysis) 119/66 mmHg Concurrent Access: falseAV Graft Upper Arm (Left) Arterial Sitting Heart Rate Pre-Dialysis 92 BPM Sitting H eart Rate Post-Dialysis 72 BPM Temperature Pre-Dialysis 97.3 degF Temperature Post -Dialysis 97 degF November 03, 2023 In-Center Hemodialysis Treatment 6897-17-45H54:16:15.000Z 0453-98-15B87:48:16.000Z BP Sitting (Pre-Dialysis) 136/81 mmHg BP Sitting (Post-Dialysis) 108/69 mmHg Concurrent Access: falseAV Graft Upper Arm (Left) Arterial Sitting Heart Rate Pre-Dialysis 87 BPM Sitting H eart Rate Post-Dialysis 82 BPM Temperature Pre-Dialysis 97.8 degF Temperature Post -Dialysis 97.4 degF November 01, 2023 In-Center Hemodialysis Treatment 4886-84-22C05:09:15.000Z 3003-43-75Z26:39:16.000Z BP Sitting (Pre-Dialysis) 134/67 mmHg BP Sitting (Post-Dialysis) 97/62 mmHg Concurrent Access: falseAV Graft Upper Arm (Left) Arterial Sitting Heart Rate Pre-Dialysis 84 BPM Sitting H eart Rate Post-Dialysis 48 BPM Temperature Pre-Dialysis 97.6 degF October 30, 2023 In-Center Hemodialysis Treatment 5686-68-71N90:18:15.000Z 5392-11-33X58:54:16.000Z BP Sitting (Pre-Dialysis) 134/75 mmHg BP Sitting (Post-Dialysis) 122/64 mmHg Concurrent Access: falseAV Graft Upper Arm (Left) Arterial Sitting Heart Rate Pre-Dialysis 84 BPM Sitting H eart Rate Post-Dialysis 80 BPM Temperature Pre-Dialysis 97.8 degF Temperature Post -Dialysis 97.7 degF October 27, 2023 In-Center Hemodialysis Treatment 8697-23-89N32:14:39.000Z 1168-76-58E44:46:40.000Z BP Sitting (Pre-Dialysis) 141/64 mmHg BP Sitting (Post-Dialysis) 114/67 mmHg Concurrent Access: falseAV Graft Upper Arm (Left) Arterial Sitting Heart Rate Pre-Dialysis 83 BPM Sitting H eart Rate Post-Dialysis 75 BPM Temperature Pre-Dialysis 97.9 degF Temperature Post -Dialysis 97.9 degF October 25, 2023 In-Center Hemodialysis Treatment 3678-90-44K90:18:39.000Z 4622-34-57E59:51:40.000Z BP Sitting (Pre-Dialysis) 111/73 mmHg BP Sitting (Post-Dialysis) 117/69 mmHg Concurrent Access: falseAV Graft Upper Arm (Left) Arterial Sitting Heart Rate Pre-Dialysis 80 BPM Sitting H eart Rate Post-Dialysis 74 BPM Temperature Pre-Dialysis 97.6 degF Temperature Post -Dialysis 97.6 degF October 23, 2023 In-Center Hemodialysis Treatment 9314-82-48T50:21:00.000Z 6718-40-62T20:46:40.000Z BP Sitting (Pre-Dialysis) 138/62 mmHg BP Sitting (Post-Dialysis) 107/66 mmHg Concurrent Access: falseAV Graft Upper Arm (Left) Arterial Sitting Heart Rate Pre-Dialysis 76 BPM Sitting H eart Rate Post-Dialysis 79 BPM Temperature Pre-Dialysis 97.8 degF Temperature Post -Dialysis 97.8 degF October 20, 2023 In-Center Hemodialysis Treatment 7826-68-52J45:24:27.000Z 8661-92-33D96:59:26.000Z BP Sitting (Pre-Dialysis) 107/87 mmHg BP Sitting (Post-Dialysis) 103/68 mmHg Concurrent Access: falseAV Graft Upper Arm (Left) Arterial Sitting Heart Rate Pre-Dialysis 94 BPM Sitting H eart Rate Post-Dialysis 95 BPM Temperature Pre-Dialysis 97.2 degF Temperature Post -Dialysis 97.8 degF October 04, 2023 In-Center Hemodialysis Treatment 0158-67-42N51:17:00.000Z 4501-05-45S76:45:08.000Z BP Sitting (Pre-Dialysis) 156/112 mmHg BP Sitting (Post-Dialysis) 196/99 mmHg Concurrent Access: falseAV Graft Upper Arm (Left) Arterial Sitting Heart Rate Pre-Dialysis 100 BPM Sitting H eart Rate Post-Dialysis 93 BPM Temperature Pre-Dialysis 97.9 degF Temperature Post -Dialysis 97.8 degF October 02, 2023 In-Center Hemodialysis Treatment 5546-45-77Z75:19:00.000Z 5860-45-58P77:43:08.000Z BP Sitting (Pre-Dialysis) 216/108 mmHg BP Sitting (Post-Dialysis) 198/103 mmHg Concurrent Access: falseAV Graft Upper Arm (Left) Arterial Sitting Heart Rate Pre-Dialysis 97 BPM Sitting H eart Rate Post-Dialysis 95 BPM Temperature Pre-Dialysis 97.6 degF Temperature Post -Dialysis 97.7 degF September 29, 2023 In-Center Hemodialysis Treatment 4913-19-46K49:09:38.000Z 9760-29-04K90:39:37.000Z BP Sitting (Pre-Dialysis) 219/92 mmHg BP Sitting (Post-Dialysis) 215/100 mmHg Concurrent Access: falseAV Graft Upper Arm (Left) Arterial Sitting Heart Rate Pre-Dialysis 94 BPM Sitting H eart Rate Post-Dialysis 89 BPM Temperature Pre-Dialysis 97.8 degF Temperature Post -Dialysis 97.8 degF September 27, 2023 In-Center Hemodialysis Treatment 1762-55-23O36:12:22.000Z 0878-08-63M44:42:22.000Z BP Sitting (Pre-Dialysis) 194/100 mmHg BP Sitting (Post-Dialysis) 194/92 mmHg Concurrent Access: falseAV Graft Upper Arm (Left) Arterial Sitting Heart Rate Pre-Dialysis 92 BPM Sitting H eart Rate Post-Dialysis 87 BPM Temperature Pre-Dialysis 97.8 degF Temperature Post -Dialysis 97.6 degF September 25, 2023 In-Center Hemodialysis Treatment 5466-41-66D32:36:00.000Z 4432-49-18N02:46:22.000Z BP Sitting (Pre-Dialysis) 186/82 mmHg BP Sitting (Post-Dialysis) 160/91 mmHg Concurrent Access: falseAV Graft Upper Arm (Left) Arterial Sitting Heart Rate Pre-Dialysis 82 BPM Sitting H eart Rate Post-Dialysis 88 BPM Temperature Pre-Dialysis 97.6 degF Temperature Post -Dialysis 97.8 degF September 22, 2023 In-Center Hemodialysis Treatment 6378-43-38A77:15:00.000Z 5762-06-29G00:47:48.000Z BP Sitting (Pre-Dialysis) 226/99 mmHg BP Sitting (Post-Dialysis) 169/89 mmHg Concurrent Access: falseAV Graft Upper Arm (Left) Arterial Sitting Heart Rate Pre-Dialysis 96 BPM Sitting H eart Rate Post-Dialysis 90 BPM Temperature Pre-Dialysis 97.9 degF Temperature Post -Dialysis 97.6 degF September 20, 2023 In-Center Hemodialysis Treatment 8382-54-70H48:10:00.000Z 0900-37-71T73:42:47.000Z BP Sitting (Pre-Dialysis) 216/115 mmHg BP Sitting (Post-Dialysis) 184/85 mmHg Concurrent Access: falseAV Graft Upper Arm (Left) Arterial Sitting Heart Rate Pre-Dialysis 91 BPM Sitting H eart Rate Post-Dialysis 90 BPM Temperature Pre-Dialysis 97.9 degF Temperature Post -Dialysis 97.9 degF September 18, 2023 In-Center Hemodialysis Treatment 4031-13-24O30:20:00.000Z 6300-48-66D16:40:28.000Z BP Sitting (Pre-Dialysis) 132/64 mmHg BP Sitting (Post-Dialysis) 192/96 mmHg Concurrent Access: falseAV Graft Upper Arm (Left) Arterial Sitting Heart Rate Pre-Dialysis 69 BPM Sitting H eart Rate Post-Dialysis 88 BPM Temperature Pre-Dialysis 97 degF Temperature Post -Dialysis 97.6 degF September 15, 2023 In-Center Hemodialysis Treatment 7717-30-11X73:08:00.000Z 1326-76-92Y70:33:55.000Z BP Sitting (Pre-Dialysis) 223/100 mmHg BP Sitting (Post-Dialysis) 175/102 mmHg Concurrent Access: falseAV Graft Upper Arm (Left) Arterial Sitting Heart Rate Pre-Dialysis 102 BPM Sitting H eart Rate Post-Dialysis 94 BPM Temperature Pre-Dialysis 97.8 degF Temperature Post -Dialysis 97.8 degF September 13, 2023 In-Center Hemodialysis Treatment 0731-83-52Q47:11:00.000Z 6507-82-08H84:45:42.000Z BP Sitting (Pre-Dialysis) 215/102 mmHg BP Sitting (Post-Dialysis) 152/81 mmHg Concurrent Access: falseAV Graft Upper Arm (Left) Arterial Sitting Heart Rate Pre-Dialysis 94 BPM Sitting H eart Rate Post-Dialysis 92 BPM Temperature Pre-Dialysis 97.9 degF Temperature Post -Dialysis 97.9 degF September 11, 2023 In-Center Hemodialysis Treatment 8405-40-47Q51:11:00.000Z 2379-51-48Z91:43:42.000Z BP Sitting (Pre-Dialysis) 131/87 mmHg BP Sitting (Post-Dialysis) 173/81 mmHg Concurrent Access: falseAV Graft Upper Arm (Left) Arterial Sitting Heart Rate Pre-Dialysis 103 BPM Sitting H eart Rate Post-Dialysis 89 BPM Temperature Pre-Dialysis 97.9 degF Temperature Post -Dialysis 97.9 degF September 08, 2023 In-Center Hemodialysis Treatment 6154-47-35O45:14:00.000Z 0982-31-30M25:46:07.000Z BP Sitting (Pre-Dialysis) 213/105 mmHg BP Sitting (Post-Dialysis) 184/79 mmHg Concurrent Access: falseAV Graft Upper Arm (Left) Arterial Sitting Heart Rate Pre-Dialysis 88 BPM Sitting H eart Rate Post-Dialysis 85 BPM Temperature Pre-Dialysis 97 degF Temperature Post -Dialysis 97.3 degF September 06, 2023 In-Center Hemodialysis Treatment 2037-11-68H21:14:00.000Z 2935-92-78F77:50:07.000Z BP Sitting (Pre-Dialysis) 126/74 mmHg BP Sitting (Post-Dialysis) 174/80 mmHg Concurrent Access: falseAV Graft Upper Arm (Left) Arterial Sitting Heart Rate Pre-Dialysis 102 BPM Sitting H eart Rate Post-Dialysis 91 BPM Temperature Pre-Dialysis 97.9 degF Temperature Post -Dialysis 97.8 degF September 04, 2023 In-Center Hemodialysis Treatment 3169-96-03P56:12:24.000Z 8726-72-60K29:42:25.000Z BP Sitting (Pre-Dialysis) 164/86 mmHg BP Sitting (Post-Dialysis) 196/87 mmHg Concurrent Access: falseAV Graft Upper Arm (Left) Arterial Sitting Heart Rate Pre-Dialysis 107 BPM Sitting H eart Rate Post-Dialysis 98 BPM Temperature Pre-Dialysis 97.6 degF Temperature Post -Dialysis 97.6 degF September 01, 2023 In-Center Hemodialysis Treatment 3901-86-51T27:24:30.000Z 5237-72-63Q86:57:31.000Z BP Sitting (Pre-Dialysis) 211/94 mmHg BP Sitting (Post-Dialysis) 180/90 mmHg Concurrent Access: falseAV Graft Upper Arm (Left) Arterial Sitting Heart Rate Pre-Dialysis 96 BPM Sitting H eart Rate Post-Dialysis 88 BPM Temperature Pre-Dialysis 97.2 degF Temperature Post -Dialysis 97.3 degF August 30, 2023 In-Center Hemodialysis Treatment 2319-80-25Q86:21:30.000Z 7905-60-00L70:52:31.000Z BP Sitting (Pre-Dialysis) 177/80 mmHg BP Sitting (Post-Dialysis) 158/92 mmHg Concurrent Access: falseAV Graft Upper Arm (Left) Arterial Sitting Heart Rate Pre-Dialysis 99 BPM Sitting H eart Rate Post-Dialysis 94 BPM Temperature Pre-Dialysis 97.6 degF Temperature Post -Dialysis 97.7 degF August 27, 2023 In-Center Hemodialysis Treatment 8996-48-93A15:10:30.000Z 0283-79-43E00:02:30.000Z BP Sitting (Pre-Dialysis) 182/74 mmHg BP Sitting (Post-Dialysis) 168/97 mmHg Concurrent Access: falseAV Graft Upper Arm (Left) Arterial Sitting Heart Rate Pre-Dialysis 86 BPM Sitting H eart Rate Post-Dialysis 90 BPM Temperature Pre-Dialysis 97.6 degF Temperature Post -Dialysis 97.6 degF August 25, 2023 In-Center Hemodialysis Treatment 5625-39-69J96:06:00.000Z 5064-51-12D15:40:07.000Z BP Sitting (Pre-Dialysis) 140/89 mmHg BP Sitting (Post-Dialysis) 163/84 mmHg Concurrent Access: falseAV Graft Upper Arm (Left) Arterial Sitting Heart Rate Pre-Dialysis 107 BPM Sitting H eart Rate Post-Dialysis 90 BPM Temperature Pre-Dialysis 97.6 degF Temperature Post -Dialysis 97.6 degF August 23, 2023 In-Center Hemodialysis Treatment 8034-27-76N77:15:00.000Z 3011-07-75J43:51:07.000Z BP Sitting (Pre-Dialysis) 189/95 mmHg BP Sitting (Post-Dialysis) 164/80 mmHg Concurrent Access: falseAV Graft Upper Arm (Left) Arterial Sitting Heart Rate Pre-Dialysis 95 BPM Sitting H eart Rate Post-Dialysis 90 BPM Temperature Pre-Dialysis 97.6 degF Temperature Post -Dialysis 97.8 degF August 20, 2023 In-Center Hemodialysis Treatment 6191-58-44Y04:01:00.000Z 5436-33-75Q20:06:07.000Z BP Sitting (Pre-Dialysis) 182/79 mmHg BP Sitting (Post-Dialysis) 166/90 mmHg Concurrent Access: falseAV Graft Upper Arm (Left) Arterial Sitting Heart Rate Pre-Dialysis 102 BPM Sitting H eart Rate Post-Dialysis 89 BPM Temperature Pre-Dialysis 97.6 degF Temperature Post -Dialysis 97.6 degF August 16, 2023 In-Center Hemodialysis Treatment 0069-44-78M78:10:47.000Z 8156-49-56F80:42:48.000Z BP Sitting (Pre-Dialysis) 163/89 mmHg BP Sitting (Post-Dialysis) 161/89 mmHg Concurrent Access: falseAV Graft Upper Arm (Left) Arterial Sitting Heart Rate Pre-Dialysis 99 BPM Sitting H eart Rate Post-Dialysis 95 BPM Temperature Pre-Dialysis 97.6 degF Temperature Post -Dialysis 98 degF August 14, 2023 In-Center Hemodialysis Treatment 2271-06-35W22:13:00.000Z 6832-77-90C82:54:50.000Z BP Sitting (Pre-Dialysis) 180/94 mmHg BP Sitting (Post-Dialysis) 137/87 mmHg Concurrent Access: falseAV Graft Upper Arm (Left) Arterial Sitting Heart Rate Pre-Dialysis 103 BPM Sitting H eart Rate Post-Dialysis 88 BPM Temperature Pre-Dialysis 97.6 degF Temperature Post -Dialysis 97.3 degF August 11, 2023 In-Center Hemodialysis Treatment 7828-84-11K40:17:46.000Z 3042-77-78J59:50:47.000Z BP Sitting (Pre-Dialysis) 172/83 mmHg BP Sitting (Post-Dialysis) 152/73 mmHg Concurrent Access: falseAV Graft Upper Arm (Left) Arterial Sitting Heart Rate Pre-Dialysis 100 BPM Sitting H eart Rate Post-Dialysis 99 BPM Temperature Pre-Dialysis 97.6 degF Temperature Post -Dialysis 97.6 degF August 09, 2023 In-Center Hemodialysis Treatment 5825-22-99O94:57:46.000Z 5174-30-47X72:02:46.000Z BP Sitting (Pre-Dialysis) 159/81 mmHg BP Sitting (Post-Dialysis) 153/81 mmHg Concurrent Access: falseAV Graft Upper Arm (Left) Arterial Sitting Heart Rate Pre-Dialysis 98 BPM Sitting H eart Rate Post-Dialysis 96 BPM Temperature Pre-Dialysis 97.6 degF Temperature Post -Dialysis 97 degF August 07, 2023 In-Center Hemodialysis Treatment 0378-68-70B00:11:00.000Z 8348-20-45F46:49:46.000Z BP Sitting (Pre-Dialysis) 190/93 mmHg BP Sitting (Post-Dialysis) 143/76 mmHg Concurrent Access: falseAV Graft Upper Arm (Left) Arterial Sitting Heart Rate Pre-Dialysis 105 BPM Sitting H eart Rate Post-Dialysis 101 BPM Temperature Pre-Dialysis 97.6 degF Temperature Post -Dialysis 97.6 degF August 04, 2023 In-Center Hemodialysis Treatment 4814-12-32L70:15:00.000Z 9528-06-21K23:47:12.000Z BP Sitting (Pre-Dialysis) 197/93 mmHg BP Sitting (Post-Dialysis) 127/79 mmHg Concurrent Access: falseAV Graft Upper Arm (Left) Arterial Sitting Heart Rate Pre-Dialysis 112 BPM Sitting H eart Rate Post-Dialysis 101 BPM Temperature Pre-Dialysis 97.6 degF Temperature Post -Dialysis 97.4 degF August 02, 2023 In-Center Hemodialysis Treatment 3817-95-84U60:09:12.000Z 9869-48-95P97:39:12.000Z BP Sitting (Pre-Dialysis) 178/81 mmHg BP Sitting (Post-Dialysis) 143/75 mmHg Concurrent Access: falseAV Graft Upper Arm (Left) Arterial Sitting Heart Rate Pre-Dialysis 108 BPM Sitting H eart Rate Post-Dialysis 101 BPM Temperature Pre-Dialysis 97.6 degF Temperature Post -Dialysis 97 degF July 31, 2023 In-Center Hemodialysis Treatment 7972-17-26E82:15:00.000Z 9593-05-44M78:47:13.000Z BP Sitting (Pre-Dialysis) 169/83 mmHg BP Sitting (Post-Dialysis) 128/67 mmHg Concurrent Access: falseAV Graft Upper Arm (Left) Arterial Sitting Heart Rate Pre-Dialysis 98 BPM Sitting H eart Rate Post-Dialysis 96 BPM Temperature Pre-Dialysis 97.6 degF Temperature Post -Dialysis 97.6 degF July 28, 2023 In-Center Hemodialysis Treatment 4886-28-22D01:06:22.000Z 1161-86-51Q99:34:22.000Z BP Sitting (Pre-Dialysis) 174/85 mmHg BP Sitting (Post-Dialysis) 166/79 mmHg Concurrent Access: falseAV Graft Upper Arm (Left) Arterial Sitting Heart Rate Pre-Dialysis 102 BPM Sitting H eart Rate Post-Dialysis 76 BPM Temperature Pre-Dialysis 97.6 degF Temperature Post -Dialysis 97.8 degF July 26, 2023 In-Center Hemodialysis Treatment 1160-25-34W00:12:00.000Z 3583-52-43W03:52:00.000Z BP Sitting (Pre-Dialysis) 196/91 mmHg BP Sitting (Post-Dialysis) 151/87 mmHg Concurrent Access: falseAV Graft Upper Arm (Left) Arterial Sitting Heart Rate Pre-Dialysis 105 BPM Sitting H eart Rate Post-Dialysis 99 BPM Temperature Pre-Dialysis 97.6 degF Temperature Post -Dialysis 97.4 degF July 24, 2023 In-Center Hemodialysis Treatment 2629-29-00C05:05:00.000Z 2428-46-27X63:38:59.000Z BP Sitting (Pre-Dialysis) 198/87 mmHg BP Sitting (Post-Dialysis) 152/81 mmHg Concurrent Access: falseAV Graft Upper Arm (Left) Arterial Sitting Heart Rate Pre-Dialysis 99 BPM Sitting H eart Rate Post-Dialysis 92 BPM Temperature Pre-Dialysis 97.6 degF Temperature Post -Dialysis 97.6 degF July 21, 2023 In-Center Hemodialysis Treatment 5658-14-41L01:16:00.000Z 5707-20-30A76:50:16.000Z BP Sitting (Pre-Dialysis) 192/97 mmHg BP Sitting (Post-Dialysis) 153/84 mmHg Concurrent Access: falseAV Graft Upper Arm (Left) Arterial Sitting Heart Rate Pre-Dialysis 108 BPM Sitting H eart Rate Post-Dialysis 95 BPM Temperature Pre-Dialysis 97.3 degF Temperature Post -Dialysis 97.3 degF July 18, 2023 In-Center Hemodialysis Treatment 3106-21-60Q55:07:16.000Z 8004-84-43D30:38:17.000Z BP Sitting (Pre-Dialysis) 165/82 mmHg BP Sitting (Post-Dialysis) 127/88 mmHg Concurrent Access: falseAV Graft Upper Arm (Left) Arterial Sitting Heart Rate Pre-Dialysis 99 BPM Sitting H eart Rate Post-Dialysis 91 BPM Temperature Pre-Dialysis 97.9 degF Temperature Post -Dialysis 97.6 degF July 16, 2023 In-Center Hemodialysis Treatment 6553-74-78W37:14:00.000Z 5522-91-06V19:44:17.000Z BP Sitting (Pre-Dialysis) 167/73 mmHg BP Sitting (Post-Dialysis) 120/79 mmHg Concurrent Access: falseAV Graft Upper Arm (Left) Arterial Sitting Heart Rate Pre-Dialysis 99 BPM Sitting H eart Rate Post-Dialysis 81 BPM Temperature Pre-Dialysis 97.6 degF Temperature Post -Dialysis 97 degF July 14, 2023 In-Center Hemodialysis Treatment 7918-26-14A09:15:58.000Z 0331-61-12M82:47:59.000Z BP Sitting (Pre-Dialysis) 165/75 mmHg BP Sitting (Post-Dialysis) 134/71 mmHg Concurrent Access: falseAV Graft Upper Arm (Left) Arterial Sitting Heart Rate Pre-Dialysis 97 BPM Sitting H eart Rate Post-Dialysis 89 BPM Temperature Pre-Dialysis 97.6 degF July 12, 2023 In-Center Hemodialysis Treatment 0040-56-73Z41:07:00.000Z 6772-14-58S83:12:00.000Z BP Sitting (Pre-Dialysis) 150/77 mmHg BP Sitting (Post-Dialysis) 164/50 mmHg Concurrent Access: falseAV Graft Upper Arm (Left) Arterial Sitting Heart Rate Pre-Dialysis 101 BPM Sitting H eart Rate Post-Dialysis 89 BPM Temperature Pre-Dialysis 97 degF Temperature Post -Dialysis 97 degF July 10, 2023 In-Center Hemodialysis Treatment 1829-09-35R57:07:00.000Z 7209-65-70X62:38:43.000Z BP Sitting (Pre-Dialysis) 160/69 mmHg BP Sitting (Post-Dialysis) 150/76 mmHg Concurrent Access: falseAV Graft Upper Arm (Left) Arterial Sitting Heart Rate Pre-Dialysis 91 BPM Sitting H eart Rate Post-Dialysis 76 BPM Temperature Pre-Dialysis 97.9 degF Temperature Post -Dialysis 97.6 degF July 07, 2023 In-Center Hemodialysis Treatment 1776-82-86Z21:23:45.000Z 5847-03-15Q51:58:44.000Z BP Sitting (Pre-Dialysis) 155/81 mmHg BP Sitting (Post-Dialysis) 153/75 mmHg Concurrent Access: falseAV Graft Upper Arm (Left) Arterial Sitting Heart Rate Pre-Dialysis 82 BPM Sitting H eart Rate Post-Dialysis 75 BPM Temperature Pre-Dialysis 97.3 degF Temperature Post -Dialysis 97.6 degF July 05, 2023 In-Center Hemodialysis Treatment 1265-42-14G35:15:44.000Z 7336-29-30I44:24:45.000Z BP Sitting (Pre-Dialysis) 193/78 mmHg BP Sitting (Post-Dialysis) 176/83 mmHg Concurrent Access: falseAV Graft Upper Arm (Left) Arterial Sitting Heart Rate Pre-Dialysis 90 BPM Sitting H eart Rate Post-Dialysis 82 BPM Temperature Pre-Dialysis 97.9 degF Temperature Post -Dialysis 96.8 degF June 23, 2023 In-Center Hemodialysis Treatment 3524-60-42X41:12:00.000Z 1584-48-40C60:19:24.000Z BP Sitting (Pre-Dialysis) 183/81 mmHg BP Sitting (Post-Dialysis) 141/91 mmHg Concurrent Access: falseAV Graft Upper Arm (Left) Arterial Sitting Heart Rate Pre-Dialysis 95 BPM Sitting H eart Rate Post-Dialysis 89 BPM Temperature Pre-Dialysis 97.6 degF Temperature Post -Dialysis 97.7 degF June 21, 2023 In-Center Hemodialysis Treatment 6909-28-07H87:12:00.000Z 6187-26-68R93:43:24.000Z BP Sitting (Pre-Dialysis) 151/87 mmHg BP Sitting (Post-Dialysis) 193/94 mmHg Concurrent Access: falseAV Graft Upper Arm (Left) Arterial Sitting Heart Rate Pre-Dialysis 81 BPM Sitting H eart Rate Post-Dialysis 92 BPM Temperature Pre-Dialysis 97.6 degF Temperature Post -Dialysis 97.6 degF June 19, 2023 In-Center Hemodialysis Treatment 1529-66-90J14:25:23.000Z 0649-45-51X17:45:24.000Z BP Sitting (Pre-Dialysis) 193/89 mmHg BP Sitting (Post-Dialysis) 148/77 mmHg Concurrent Access: falseAV Graft Upper Arm (Left) Arterial Sitting Heart Rate Pre-Dialysis 97 BPM Sitting H eart Rate Post-Dialysis 90 BPM Temperature Pre-Dialysis 97.6 degF June 16, 2023 In-Center Hemodialysis Treatment 8675-52-91B45:13:00.000Z 1202-23-45P83:49:16.000Z BP Sitting (Pre-Dialysis) 189/90 mmHg BP Sitting (Post-Dialysis) 130/74 mmHg Concurrent Access: falseAV Graft Upper Arm (Left) Arterial Sitting Heart Rate Pre-Dialysis 92 BPM Sitting H eart Rate Post-Dialysis 97 BPM Temperature Pre-Dialysis 97.6 degF Temperature Post -Dialysis 97.6 degF June 14, 2023 In-Center Hemodialysis Treatment 6230-33-04K53:18:00.000Z 4269-71-35D49:51:16.000Z BP Sitting (Pre-Dialysis) 164/74 mmHg BP Sitting (Post-Dialysis) 127/70 mmHg Concurrent Access: falseAV Graft Upper Arm (Left) Arterial Sitting Heart Rate Pre-Dialysis 83 BPM Sitting H eart Rate Post-Dialysis 90 BPM Temperature Pre-Dialysis 97.6 degF Temperature Post -Dialysis 97.6 degF June 12, 2023 In-Center Hemodialysis Treatment 6435-26-68M78:20:15.000Z 5465-27-01P28:53:16.000Z BP Sitting (Pre-Dialysis) 148/95 mmHg BP Sitting (Post-Dialysis) 139/78 mmHg Concurrent Access: falseAV Graft Upper Arm (Left) Arterial Sitting Heart Rate Pre-Dialysis 77 BPM Sitting H eart Rate Post-Dialysis 84 BPM Temperature Pre-Dialysis 97.9 degF Temperature Post -Dialysis 97 degF June 09, 2023 In-Center Hemodialysis Treatment 4843-14-75W75:08:00.000Z 5643-59-54K78:39:10.000Z BP Sitting (Pre-Dialysis) 178/73 mmHg BP Sitting (Post-Dialysis) 118/69 mmHg Concurrent Access: falseAV Graft Upper Arm (Left) Arterial Sitting Heart Rate Pre-Dialysis 101 BPM Sitting H eart Rate Post-Dialysis 91 BPM Temperature Pre-Dialysis 97 degF Temperature Post -Dialysis 97.4 degF June 07, 2023 In-Center Hemodialysis Treatment 4083-76-34N87:12:00.000Z 3064-14-91V80:45:10.000Z BP Sitting (Pre-Dialysis) 163/75 mmHg BP Sitting (Post-Dialysis) 152/69 mmHg Concurrent Access: falseAV Graft Upper Arm (Left) Arterial Sitting Heart Rate Pre-Dialysis 85 BPM Sitting H eart Rate Post-Dialysis 83 BPM Temperature Pre-Dialysis 97.6 degF Temperature Post -Dialysis 97.6 degF June 05, 2023 In-Center Hemodialysis Treatment 7387-46-65U73:11:00.000Z 1919-51-71G58:48:10.000Z BP Sitting (Pre-Dialysis) 150/115 mmHg BP Sitting (Post-Dialysis) 119/81 mmHg Concurrent Access: falseAV Graft Upper Arm (Left) Arterial Sitting Heart Rate Pre-Dialysis 81 BPM Sitting H eart Rate Post-Dialysis 84 BPM Temperature Pre-Dialysis 97.6 degF Temperature Post -Dialysis 97.7 degF June 02, 2023 In-Center Hemodialysis Treatment 7905-32-22C69:22:00.000Z 5462-67-77B11:23:15.000Z BP Sitting (Pre-Dialysis) 152/80 mmHg BP Sitting (Post-Dialysis) 118/61 mmHg Concurrent Access: falseAV Graft Upper Arm (Left) Arterial Sitting Heart Rate Pre-Dialysis 88 BPM Sitting H eart Rate Post-Dialysis 78 BPM Temperature Pre-Dialysis 97.6 degF Temperature Post -Dialysis 97.6 degF May 31, 2023 In-Center Hemodialysis Treatment 9509-52-09M27:06:00.000Z 5268-24-83X76:42:15.000Z BP Sitting (Pre-Dialysis) 147/59 mmHg BP Sitting (Post-Dialysis) 127/67 mmHg Concurrent Access: falseAV Graft Upper Arm (Left) Arterial Sitting Heart Rate Pre-Dialysis 85 BPM Sitting H eart Rate Post-Dialysis 80 BPM Temperature Pre-Dialysis 97.9 degF Temperature Post -Dialysis 97.6 degF May 29, 2023 In-Center Hemodialysis Treatment 1036-94-45E90:16:15.000Z 8236-82-22B69:48:15.000Z BP Sitting (Pre-Dialysis) 149/99 mmHg BP Sitting (Post-Dialysis) 132/70 mmHg Concurrent Access: falseAV Graft Upper Arm (Left) Arterial Sitting Heart Rate Pre-Dialysis 76 BPM Sitting H eart Rate Post-Dialysis 74 BPM Temperature Pre-Dialysis 97.6 degF Temperature Post -Dialysis 98 degF May 19, 2023 In-Center Hemodialysis Treatment 8578-30-48X73:15:27.000Z 2511-44-52O05:46:51.000Z BP Sitting (Pre-Dialysis) 153/74 mmHg BP Sitting (Post-Dialysis) 123/68 mmHg Concurrent Access: falseAV Graft Upper Arm (Left) Arterial Sitting Heart Rate Pre-Dialysis 85 BPM Sitting H eart Rate Post-Dialysis 81 BPM Temperature Pre-Dialysis 97 degF Temperature Post -Dialysis 97.6 degF May 17, 2023 In-Center Hemodialysis Treatment 8716-72-95O53:09:27.000Z 4927-32-17D12:39:28.000Z BP Sitting (Pre-Dialysis) 157/78 mmHg BP Sitting (Post-Dialysis) 108/65 mmHg Concurrent Access: falseAV Graft Upper Arm (Left) Arterial Sitting Heart Rate Pre-Dialysis 93 BPM Sitting H eart Rate Post-Dialysis 81 BPM Temperature Pre-Dialysis 97.9 degF Temperature Post -Dialysis 97.9 degF May 15, 2023 In-Center Hemodialysis Treatment 0932-25-40F22:13:27.000Z 1791-95-93U05:41:28.000Z BP Sitting (Pre-Dialysis) 176/73 mmHg BP Sitting (Post-Dialysis) 118/71 mmHg Concurrent Access: falseAV Graft Upper Arm (Left) Arterial Sitting Heart Rate Pre-Dialysis 82 BPM Sitting H eart Rate Post-Dialysis 76 BPM Temperature Pre-Dialysis 97.8 degF May 12, 2023 In-Center Hemodialysis Treatment 5654-99-92G48:09:00.000Z 2444-15-12O17:43:10.000Z BP Sitting (Pre-Dialysis) 189/85 mmHg BP Sitting (Post-Dialysis) 111/62 mmHg Concurrent Access: falseAV Graft Upper Arm (Left) Arterial Sitting Heart Rate Pre-Dialysis 88 BPM Sitting H eart Rate Post-Dialysis 80 BPM Temperature Pre-Dialysis 97.8 degF Temperature Post -Dialysis 97.8 degF May 10, 2023 In-Center Hemodialysis Treatment 6928-18-60M64:15:00.000Z 2665-88-87E32:45:10.000Z BP Sitting (Pre-Dialysis) 144/71 mmHg BP Sitting (Post-Dialysis) 110/58 mmHg Concurrent Access: falseAV Graft Upper Arm (Left) Arterial Sitting Heart Rate Pre-Dialysis 84 BPM Sitting H eart Rate Post-Dialysis 77 BPM Temperature Pre-Dialysis 97.6 degF Temperature Post -Dialysis 97.9 degF May 08, 2023 In-Center Hemodialysis Treatment 1923-32-47R11:05:10.000Z 9287-70-12I88:36:10.000Z BP Sitting (Pre-Dialysis) 160/73 mmHg BP Sitting (Post-Dialysis) 109/65 mmHg Concurrent Access: falseAV Graft Upper Arm (Left) Arterial Sitting Heart Rate Pre-Dialysis 89 BPM Sitting H eart Rate Post-Dialysis 77 BPM Temperature Pre-Dialysis 97.6 degF Temperature Post -Dialysis 98 degF May 05, 2023 In-Center Hemodialysis Treatment 2178-05-47B21:10:07.000Z 7245-05-92J24:44:07.000Z BP Sitting (Pre-Dialysis) 144/60 mmHg BP Sitting (Post-Dialysis) 124/75 mmHg Concurrent Access: falseAV Graft Upper Arm (Left) Arterial Sitting Heart Rate Pre-Dialysis 81 BPM Sitting H eart Rate Post-Dialysis 76 BPM Temperature Pre-Dialysis 97.6 degF Temperature Post -Dialysis 97.6 degF May 03, 2023 In-Center Hemodialysis Treatment 3451-87-96R50:10:23.000Z 0991-77-54G30:41:24.000Z BP Sitting (Pre-Dialysis) 116/50 mmHg BP Sitting (Post-Dialysis) 126/67 mmHg Concurrent Access: falseAV Graft Upper Arm (Left) Arterial Sitting Heart Rate Pre-Dialysis 82 BPM Sitting H eart Rate Post-Dialysis 78 BPM Temperature Pre-Dialysis 97.6 degF Temperature Post -Dialysis 97.6 degF May 01, 2023 In-Center Hemodialysis Treatment 2321-62-63E80:09:49.000Z 8332-53-44K52:41:50.000Z BP Sitting (Pre-Dialysis) 148/123 mmHg BP Sitting (Post-Dialysis) 101/52 mmHg Concurrent Access: falseAV Graft Upper Arm (Left) Arterial Sitting Heart Rate Pre-Dialysis 87 BPM Sitting H eart Rate Post-Dialysis 78 BPM Temperature Pre-Dialysis 97.9 degF Temperature Post -Dialysis 97.9 degF April 28, 2023 In-Center Hemodialysis Treatment 7255-42-17T17:14:00.000Z 2903-26-25M22:49:44.000Z BP Sitting (Pre-Dialysis) 153/76 mmHg BP Sitting (Post-Dialysis) 131/66 mmHg Concurrent Access: falseAV Graft Upper Arm (Left) Arterial Sitting Heart Rate Pre-Dialysis 85 BPM Sitting H eart Rate Post-Dialysis 80 BPM Temperature Pre-Dialysis 97.8 degF Temperature Post -Dialysis 97 degF April 26, 2023 In-Center Hemodialysis Treatment 0135-18-06G97:12:00.000Z 9638-24-42Y90:47:19.000Z BP Sitting (Pre-Dialysis) 126/61 mmHg BP Sitting (Post-Dialysis) 130/70 mmHg Concurrent Access: falseAV Graft Upper Arm (Left) Arterial Sitting Heart Rate Pre-Dialysis 80 BPM Sitting H eart Rate Post-Dialysis 80 BPM Temperature Pre-Dialysis 97.8 degF Temperature Post -Dialysis 97.8 degF April 24, 2023 In-Center Hemodialysis Treatment 7985-80-84E84:05:00.000Z 3016-56-51U38:44:43.000Z BP Sitting (Pre-Dialysis) 163/67 mmHg BP Sitting (Post-Dialysis) 113/68 mmHg Concurrent Access: falseAV Graft Upper Arm (Left) Arterial Sitting Heart Rate Pre-Dialysis 79 BPM Sitting H eart Rate Post-Dialysis 80 BPM Temperature Pre-Dialysis 97.6 degF April 21, 2023 In-Center Hemodialysis Treatment 2227-74-36C33:11:51.000Z 2612-26-81Q77:41:52.000Z BP Sitting (Pre-Dialysis) 132/53 mmHg BP Sitting (Post-Dialysis) 128/75 mmHg Concurrent Access: falseAV Graft Upper Arm (Left) Arterial Sitting Heart Rate Pre-Dialysis 81 BPM Sitting H eart Rate Post-Dialysis 76 BPM Temperature Pre-Dialysis 97.6 degF Temperature Post -Dialysis 97.6 degF April 19, 2023 In-Center Hemodialysis Treatment 1201-55-88V20:09:00.000Z 5552-61-78D85:43:52.000Z BP Sitting (Pre-Dialysis) 161/73 mmHg BP Sitting (Post-Dialysis) 122/63 mmHg Concurrent Access: falseAV Graft Upper Arm (Left) Arterial Sitting Heart Rate Pre-Dialysis 81 BPM Sitting H eart Rate Post-Dialysis 78 BPM Temperature Pre-Dialysis 97.6 degF Temperature Post -Dialysis 98 degF April 17, 2023 In-Center Hemodialysis Treatment 2306-91-84X50:11:51.000Z 9612-22-82T33:42:51.000Z BP Sitting (Pre-Dialysis) 166/74 mmHg BP Sitting (Post-Dialysis) 128/80 mmHg Concurrent Access: falseAV Graft Upper Arm (Left) Arterial Sitting Heart Rate Pre-Dialysis 85 BPM Sitting H eart Rate Post-Dialysis 77 BPM Temperature Pre-Dialysis 97.8 degF Temperature Post -Dialysis 98 degF April 14, 2023 In-Center Hemodialysis Treatment 4711-24-95Q18:08:00.000Z 2682-91-57S89:45:35.000Z BP Sitting (Pre-Dialysis) 172/83 mmHg BP Sitting (Post-Dialysis) 123/67 mmHg Concurrent Access: falseAV Graft Upper Arm (Left) Arterial Sitting Heart Rate Pre-Dialysis 87 BPM Sitting H eart Rate Post-Dialysis 85 BPM Temperature Pre-Dialysis 97.6 degF Temperature Post -Dialysis 97.8 degF April 12, 2023 In-Center Hemodialysis Treatment 7608-30-55V09:13:35.000Z 5075-56-58O15:45:35.000Z BP Sitting (Pre-Dialysis) 192/71 mmHg BP Sitting (Post-Dialysis) 124/78 mmHg Concurrent Access: falseAV Graft Upper Arm (Left) Arterial Sitting Heart Rate Pre-Dialysis 81 BPM Sitting H eart Rate Post-Dialysis 69 BPM Temperature Pre-Dialysis 97.6 degF Temperature Post -Dialysis 97.8 degF April 10, 2023 In-Center Hemodialysis Treatment 2122-17-62N72:09:00.000Z 5595-66-86O06:40:35.000Z BP Sitting (Pre-Dialysis) 194/111 mmHg BP Sitting (Post-Dialysis) 135/79 mmHg Concurrent Access: falseAV Graft Upper Arm (Left) Arterial Sitting Heart Rate Pre-Dialysis 91 BPM Sitting H eart Rate Post-Dialysis 80 BPM Temperature Pre-Dialysis 97.8 degF Temperature Post -Dialysis 97 degF April 07, 2023 In-Center Hemodialysis Treatment 3934-07-95H85:17:00.000Z 3989-09-59I95:49:28.000Z BP Sitting (Pre-Dialysis) 160/72 mmHg BP Sitting (Post-Dialysis) 113/70 mmHg Concurrent Access: falseAV Graft Upper Arm (Left) Arterial Sitting Heart Rate Pre-Dialysis 78 BPM Sitting H eart Rate Post-Dialysis 80 BPM Temperature Pre-Dialysis 97.6 degF Temperature Post -Dialysis 97 degF April 05, 2023 In-Center Hemodialysis Treatment 3264-82-82P18:14:00.000Z 1794-53-87D97:49:00.000Z BP Sitting (Pre-Dialysis) 164/68 mmHg BP Sitting (Post-Dialysis) 133/70 mmHg Concurrent Access: falseAV Graft Upper Arm (Left) Arterial Sitting Heart Rate Pre-Dialysis 88 BPM Sitting H eart Rate Post-Dialysis 83 BPM Temperature Pre-Dialysis 97.6 degF Temperature Post -Dialysis 97.6 degF April 03, 2023 In-Center Hemodialysis Treatment 4410-09-96T29:33:00.000Z 1565-47-89S23:47:00.000Z BP Sitting (Pre-Dialysis) 124/56 mmHg BP Sitting (Post-Dialysis) 124/67 mmHg Concurrent Access: falseAV Graft Upper Arm (Left) Arterial Sitting Heart Rate Pre-Dialysis 74 BPM Sitting H eart Rate Post-Dialysis 76 BPM Temperature Pre-Dialysis 97.9 degF Temperature Post -Dialysis 97.3 degF March 31, 2023 In-Center Hemodialysis Treatment 2724-69-80C83:10:00.000Z 6510-38-81P77:45:11.000Z BP Sitting (Pre-Dialysis) 142/46 mmHg BP Sitting (Post-Dialysis) 122/64 mmHg Concurrent Access: falseAV Graft Upper Arm (Left) Arterial Sitting Heart Rate Pre-Dialysis 81 BPM Sitting H eart Rate Post-Dialysis 81 BPM Temperature Pre-Dialysis 97.9 degF Temperature Post -Dialysis 97.9 degF March 29, 2023 In-Center Hemodialysis Treatment 3601-58-67V19:11:11.000Z 9994-24-58N89:42:11.000Z BP Sitting (Pre-Dialysis) 150/75 mmHg BP Sitting (Post-Dialysis) 161/74 mmHg Concurrent Access: falseAV Graft Upper Arm (Left) Arterial Sitting Heart Rate Pre-Dialysis 81 BPM Sitting H eart Rate Post-Dialysis 79 BPM Temperature Pre-Dialysis 97.3 degF Temperature Post -Dialysis 97.8 degF March 27, 2023 In-Center Hemodialysis Treatment 9909-25-37S72:15:00.000Z 7970-08-64P11:51:26.000Z BP Sitting (Pre-Dialysis) 155/81 mmHg BP Sitting (Post-Dialysis) 141/55 mmHg Concurrent Access: falseAV Graft Upper Arm (Left) Arterial Sitting Heart Rate Pre-Dialysis 81 BPM Sitting H eart Rate Post-Dialysis 78 BPM Temperature Pre-Dialysis 97.6 degF Temperature Post -Dialysis 98.6 degF March 24, 2023 In-Center Hemodialysis Treatment 9108-34-39H87:17:31.000Z 1903-64-06T22:45:31.000Z BP Sitting (Pre-Dialysis) 173/75 mmHg BP Sitting (Post-Dialysis) 122/59 mmHg Concurrent Access: falseAV Graft Upper Arm (Left) Arterial Sitting Heart Rate Pre-Dialysis 76 BPM Sitting H eart Rate Post-Dialysis 70 BPM Temperature Pre-Dialysis 97.6 degF Temperature Post -Dialysis 97 degF March 22, 2023 In-Center Hemodialysis Treatment 6633-15-67V64:18:31.000Z 2465-33-36P26:50:31.000Z BP Sitting (Pre-Dialysis) 175/78 mmHg BP Sitting (Post-Dialysis) 155/72 mmHg Concurrent Access: falseAV Graft Upper Arm (Left) Arterial Sitting Heart Rate Pre-Dialysis 60 BPM Sitting H eart Rate Post-Dialysis 76 BPM Temperature Pre-Dialysis 97.6 degF Temperature Post -Dialysis 97.8 degF March 20, 2023 In-Center Hemodialysis Treatment 4242-16-69Z39:11:00.000Z 3797-14-74O77:45:31.000Z BP Sitting (Pre-Dialysis) 184/97 mmHg BP Sitting (Post-Dialysis) 143/71 mmHg Concurrent Access: falseAV Graft Upper Arm (Left) Arterial Sitting Heart Rate Pre-Dialysis 94 BPM Sitting H eart Rate Post-Dialysis 83 BPM Temperature Pre-Dialysis 97.6 degF Temperature Post -Dialysis 97.3 degF March 17, 2023 In-Center Hemodialysis Treatment 2614-26-36T00:10:21.000Z 3900-86-36E46:42:21.000Z BP Sitting (Pre-Dialysis) 178/71 mmHg BP Sitting (Post-Dialysis) 130/17 mmHg Concurrent Access: falseAV Graft Upper Arm (Left) Arterial Sitting Heart Rate Pre-Dialysis 76 BPM Sitting H eart Rate Post-Dialysis 58 BPM Temperature Pre-Dialysis 97.6 degF Temperature Post -Dialysis 97.9 degF March 15, 2023 In-Center Hemodialysis Treatment 9137-80-71Z00:12:11.000Z 2847-67-75Z00:45:11.000Z BP Sitting (Pre-Dialysis) 188/76 mmHg BP Sitting (Post-Dialysis) 148/82 mmHg Concurrent Access: falseAV Graft Upper Arm (Left) Arterial Sitting Heart Rate Pre-Dialysis 78 BPM Sitting H eart Rate Post-Dialysis 77 BPM Temperature Pre-Dialysis 97.6 degF Temperature Post -Dialysis 97.8 degF March 13, 2023 In-Center Hemodialysis Treatment 0795-06-76R51:11:11.000Z 4521-54-68T24:45:11.000Z BP Sitting (Pre-Dialysis) 151/85 mmHg BP Sitting (Post-Dialysis) 143/69 mmHg Concurrent Access: falseAV Graft Upper Arm (Left) Arterial Sitting Heart Rate Pre-Dialysis 77 BPM Sitting H eart Rate Post-Dialysis 75 BPM Temperature Pre-Dialysis 97.8 degF March 10, 2023 In-Center Hemodialysis Treatment 1086-88-19Y36:57:00.000Z 0429-11-48Y21:31:33.000Z BP Sitting (Pre-Dialysis) 188/80 mmHg BP Sitting (Post-Dialysis) 146/60 mmHg Concurrent Access: falseAV Graft Upper Arm (Left) Arterial Sitting Heart Rate Pre-Dialysis 87 BPM Sitting H eart Rate Post-Dialysis 75 BPM Temperature Pre-Dialysis 97.9 degF Temperature Post -Dialysis 97.8 degF March 08, 2023 In-Center Hemodialysis Treatment 4329-12-15F24:16:32.000Z 5989-48-78E87:48:32.000Z BP Sitting (Pre-Dialysis) 181/74 mmHg BP Sitting (Post-Dialysis) 148/77 mmHg Concurrent Access: falseAV Graft Upper Arm (Left) Arterial Sitting Heart Rate Pre-Dialysis 79 BPM Sitting H eart Rate Post-Dialysis 72 BPM Temperature Pre-Dialysis 97.6 degF Temperature Post -Dialysis 97.8 degF March 06, 2023 In-Center Hemodialysis Treatment 8393-41-95J73:12:00.000Z 3452-21-74H63:47:32.000Z BP Sitting (Pre-Dialysis) 184/65 mmHg BP Sitting (Post-Dialysis) 125/68 mmHg Concurrent Access: falseAV Graft Upper Arm (Left) Arterial Sitting Heart Rate Pre-Dialysis 74 BPM Sitting H eart Rate Post-Dialysis 76 BPM Temperature Pre-Dialysis 97.9 degF Temperature Post -Dialysis 97.3 degF March 03, 2023 In-Center Hemodialysis Treatment 9116-04-13S17:03:00.000Z 6135-96-62Q68:36:30.000Z BP Sitting (Pre-Dialysis) 165/77 mmHg BP Sitting (Post-Dialysis) 172/85 mmHg Concurrent Access: falseAV Graft Upper Arm (Left) Arterial Sitting Heart Rate Pre-Dialysis 78 BPM Sitting H eart Rate Post-Dialysis 73 BPM Temperature Pre-Dialysis 97.8 degF Temperature Post -Dialysis 97.8 degF March 01, 2023 In-Center Hemodialysis Treatment 9756-61-80V96:08:29.000Z 5015-22-71H84:37:30.000Z BP Sitting (Pre-Dialysis) 164/66 mmHg BP Sitting (Post-Dialysis) 141/88 mmHg Concurrent Access: falseAV Graft Upper Arm (Left) Arterial Sitting Heart Rate Pre-Dialysis 81 BPM Sitting H eart Rate Post-Dialysis 74 BPM Temperature Pre-Dialysis 97.1 degF Temperature Post -Dialysis 97 degF February 27, 2023 In-Center Hemodialysis Treatment 5564-70-57X28:09:00.000Z 1464-96-14W01:41:49.000Z BP Sitting (Pre-Dialysis) 183/75 mmHg BP Sitting (Post-Dialysis) 147/67 mmHg Concurrent Access: falseAV Graft Upper Arm (Left) Arterial Sitting Heart Rate Pre-Dialysis 73 BPM Sitting H eart Rate Post-Dialysis 71 BPM Temperature Pre-Dialysis 97.2 degF Temperature Post -Dialysis 97.5 degF February 24, 2023 In-Center Hemodialysis Treatment 2113-94-76I20:10:00.000Z 5137-70-75V84:01:24.000Z BP Sitting (Pre-Dialysis) 153/65 mmHg BP Sitting (Post-Dialysis) 151/77 mmHg Concurrent Access: falseAV Graft Upper Arm (Left) Arterial BP Standing (Pre-Dialysis) 176/74 mmHg Sitti ng Heart Rate Post-Dialysis 74 BPM Sitting Heart Rate Pre-Dialysis 75 BPM Temperatu re Post-Dialysis 97.3 degF Standing Heart Rate Pre-Dialysis 82 BPM Temperature Pre-Dialysis 97.6 degF February 22, 2023 In-Center Hemodialysis Treatment 0837-55-47H75:13:12.000Z 6198-44-64E88:45:13.000Z BP Sitting (Pre-Dialysis) 183/76 mmHg BP Sitting (Post-Dialysis) 145/67 mmHg Concurrent Access: falseAV Graft Upper Arm (Left) Arterial Sitting Heart Rate Pre-Dialysis 70 BPM Sitting H eart Rate Post-Dialysis 76 BPM Temperature Pre-Dialysis 97.5 degF Temperature Post -Dialysis 97.8 degF February 20, 2023 In-Center Hemodialysis Treatment 9557-51-21F00:02:00.000Z 5626-61-23E29:32:00.000Z BP Sitting (Pre-Dialysis) 181/85 mmHg BP Sitting (Post-Dialysis) 187/78 mmHg Concurrent Access: falseAV Graft Upper Arm (Left) Arterial Sitting Heart Rate Pre-Dialysis 80 BPM Sitting H eart Rate Post-Dialysis 83 BPM Temperature Pre-Dialysis 97.8 degF Temperature Post -Dialysis 97.3 degF February 17, 2023 In-Center Hemodialysis Treatment 4557-20-99B96:05:11.000Z 1291-38-92T96:38:12.000Z BP Sitting (Pre-Dialysis) 175/77 mmHg BP Sitting (Post-Dialysis) 121/62 mmHg Concurrent Access: falseAV Graft Upper Arm (Left) Arterial Sitting Heart Rate Pre-Dialysis 78 BPM Sitting H eart Rate Post-Dialysis 77 BPM Temperature Pre-Dialysis 97 degF Temperature Post -Dialysis 96.9 degF February 15, 2023 In-Center Hemodialysis Treatment 2883-15-36F60:58:00.000Z 6025-01-17U86:27:11.000Z BP Sitting (Pre-Dialysis) 196/80 mmHg BP Sitting (Post-Dialysis) 145/82 mmHg Concurrent Access: falseAV Graft Upper Arm (Left) Arterial Sitting Heart Rate Pre-Dialysis 74 BPM Sitting H eart Rate Post-Dialysis 75 BPM Temperature Pre-Dialysis 97.5 degF Temperature Post -Dialysis 97.3 degF February 13, 2023 In-Center Hemodialysis Treatment 2205-31-70O40:06:00.000Z 5846-09-66N51:37:11.000Z BP Sitting (Pre-Dialysis) 188/81 mmHg BP Sitting (Post-Dialysis) 133/74 mmHg Concurrent Access: falseAV Graft Upper Arm (Left) Arterial Sitting Heart Rate Pre-Dialysis 75 BPM Sitting H eart Rate Post-Dialysis 77 BPM Temperature Pre-Dialysis 97 degF Temperature Post -Dialysis 97.5 degF February 10, 2023 In-Center Hemodialysis Treatment [id number]:14:55.000Z 6483-77-84K61:44:55.000Z BP Sitting (Pre-Dialysis) 177/76 mmHg BP Sitting (Post-Dialysis) 152/47 mmHg Concurrent Access: falseAV Graft Upper Arm (Left) Arterial Sitting Heart Rate Pre-Dialysis 78 BPM Sitting H eart Rate Post-Dialysis 79 BPM Temperature Pre-Dialysis 98.1 degF Temperature Post -Dialysis 97.9 degF February 08, 2023 In-Center Hemodialysis Treatment 4299-31-66M29:07:00.000Z 7393-50-15G84:37:57.000Z BP Sitting (Pre-Dialysis) 179/74 mmHg BP Sitting (Post-Dialysis) 165/79 mmHg Concurrent Access: falseAV Graft Upper Arm (Left) Arterial Sitting Heart Rate Pre-Dialysis 81 BPM Sitting H eart Rate Post-Dialysis 73 BPM Temperature Pre-Dialysis 97 degF Temperature Post -Dialysis 97.3 degF February 06, 2023 In-Center Hemodialysis Treatment 0496-49-71P72:06:55.000Z 6011-55-34A59:37:55.000Z BP Sitting (Pre-Dialysis) 198/77 mmHg BP Sitting (Post-Dialysis) 156/69 mmHg Concurrent Access: falseAV Graft Upper Arm (Left) Arterial Sitting Heart Rate Pre-Dialysis 77 BPM Sitting H eart Rate Post-Dialysis 75 BPM Temperature Pre-Dialysis 97.6 degF Temperature Post -Dialysis 97.6 degF February 03, 2023 In-Center Hemodialysis Treatment 0558-68-36I52:11:00.000Z 8836-57-58K26:43:32.000Z BP Sitting (Pre-Dialysis) 175/77 mmHg BP Sitting (Post-Dialysis) 182/87 mmHg Concurrent Access: falseAV Graft Upper Arm (Left) Arterial BP Standing (Pre-Dialysis) 176/80 mmHg Sitti ng Heart Rate Post-Dialysis 83 BPM Sitting Heart Rate Pre-Dialysis 81 BPM Temperatu re Post-Dialysis 97.6 degF Standing Heart Rate Pre-Dialysis 81 BPM Temperature Pre-Dialysis 97.6 degF February 01, 2023 In-Center Hemodialysis Treatment 7084-12-60W90:04:00.000Z 2552-13-96J17:34:31.000Z BP Sitting (Pre-Dialysis) 164/65 mmHg BP Sitting (Post-Dialysis) 179/84 mmHg Concurrent Access: falseAV Graft Upper Arm (Left) Arterial Sitting Heart Rate Pre-Dialysis 85 BPM Sitting H eart Rate Post-Dialysis 75 BPM Temperature Pre-Dialysis 97.6 degF Temperature Post -Dialysis 97.4 degF January 30, 2023 In-Center Hemodialysis Treatment 2839-08-08F96:09:00.000Z 3809-73-18A33:40:55.000Z BP Sitting (Pre-Dialysis) 15/88 mmHg BP Sitting (Post-Dialysis) 173/69 mmHg Concurrent Access: falseAV Graft Upper Arm (Left) Arterial Sitting Heart Rate Pre-Dialysis 76 BPM Sitting H eart Rate Post-Dialysis 74 BPM Temperature Pre-Dialysis 97.9 degF Temperature Post -Dialysis 97.8 degF January 27, 2023 In-Center Hemodialysis Treatment 0418-50-34J59:16:00.000Z 0076-98-14E71:50:09.000Z BP Sitting (Pre-Dialysis) 156/87 mmHg BP Sitting (Post-Dialysis) 148/73 mmHg Concurrent Access: falseAV Graft Upper Arm (Left) Arterial Sitting Heart Rate Pre-Dialysis 82 BPM Sitting H eart Rate Post-Dialysis 78 BPM Temperature Pre-Dialysis 97.7 degF Temperature Post -Dialysis 97.8 degF January 25, 2023 In-Center Hemodialysis Treatment 6231-79-99I44:12:08.000Z 1725-94-50R43:45:08.000Z BP Sitting (Pre-Dialysis) 154/126 mmHg BP Sitting (Post-Dialysis) 136/74 mmHg Concurrent Access: falseAV Graft Upper Arm (Left) Arterial Sitting Heart Rate Pre-Dialysis 85 BPM Sitting H eart Rate Post-Dialysis 84 BPM Temperature Pre-Dialysis 97.9 degF Temperature Post -Dialysis 97.9 degF January 23, 2023 In-Center Hemodialysis Treatment 9370-30-70U20:11:00.000Z 2952-90-77Q66:46:08.000Z BP Sitting (Pre-Dialysis) 180/80 mmHg BP Sitting (Post-Dialysis) 150/77 mmHg Concurrent Access: falseAV Graft Upper Arm (Left) Arterial Sitting Heart Rate Pre-Dialysis 76 BPM Sitting H eart Rate Post-Dialysis 76 BPM Temperature Pre-Dialysis 97.8 degF Temperature Post -Dialysis 97.8 degF January 20, 2023 In-Center Hemodialysis Treatment 0856-42-36G62:15:00.000Z 4820-57-93L85:48:37.000Z BP Sitting (Pre-Dialysis) 153/88 mmHg BP Sitting (Post-Dialysis) 143/79 mmHg Concurrent Access: falseAV Graft Upper Arm (Left) Arterial Sitting Heart Rate Pre-Dialysis 82 BPM Sitting H eart Rate Post-Dialysis 71 BPM Temperature Pre-Dialysis 97.6 degF Temperature Post -Dialysis 97.6 degF January 18, 2023 In-Center Hemodialysis Treatment 4647-03-73Q11:13:00.000Z 4393-50-25L39:53:37.000Z BP Sitting (Pre-Dialysis) 159/69 mmHg BP Sitting (Post-Dialysis) 139/79 mmHg Concurrent Access: falseAV Graft Upper Arm (Left) Arterial Sitting Heart Rate Pre-Dialysis 82 BPM Sitting H eart Rate Post-Dialysis 74 BPM Temperature Pre-Dialysis 97.9 degF Temperature Post -Dialysis 97.4 degF January 16, 2023 In-Center Hemodialysis Treatment 5349-04-05M09:10:00.000Z 5310-64-48U80:43:31.000Z BP Sitting (Pre-Dialysis) 172/78 mmHg BP Sitting (Post-Dialysis) 123/70 mmHg Concurrent Access: falseAV Graft Upper Arm (Left) Arterial Sitting Heart Rate Pre-Dialysis 89 BPM BP Standing (Post-Dialysis) 120/66 mmHg Temperature Pre-Dialysis 97.8 degF Sitting Heart Ra te Post-Dialysis 77 BPM Standing Heart Rate Post-Luisa lysis 75 BPM Temperature Post-Dialysis 97 .8 degF January 13, 2023 In-Center Hemodialysis Treatment 9626-95-86E28:11:00.000Z 3259-73-14W25:45:09.000Z BP Sitting (Pre-Dialysis) 173/74 mmHg BP Sitting (Post-Dialysis) 120/66 mmHg Concurrent Access: falseAV Graft Upper Arm (Left) Arterial Sitting Heart Rate Pre-Dialysis 85 BPM Sitting H eart Rate Post-Dialysis 75 BPM Temperature Pre-Dialysis 97.9 degF Temperature Post -Dialysis 97.4 degF January 11, 2023 In-Center Hemodialysis Treatment 0546-18-30Z37:14:00.000Z 7120-88-92L29:46:09.000Z BP Sitting (Pre-Dialysis) 184/90 mmHg BP Sitting (Post-Dialysis) 131/68 mmHg Concurrent Access: falseAV Graft Upper Arm (Left) Arterial Sitting Heart Rate Pre-Dialysis 87 BPM Sitting H eart Rate Post-Dialysis 78 BPM Temperature Pre-Dialysis 97.8 degF Temperature Post -Dialysis 97.8 degF January 09, 2023 In-Center Hemodialysis Treatment 6232-08-08C26:03:00.000Z 0531-68-05W03:40:09.000Z BP Sitting (Pre-Dialysis) 165/66 mmHg BP Sitting (Post-Dialysis) 147/77 mmHg Concurrent Access: falseAV Graft Upper Arm (Left) Arterial Sitting Heart Rate Pre-Dialysis 75 BPM Sitting H eart Rate Post-Dialysis 71 BPM Temperature Pre-Dialysis 97.9 degF Temperature Post -Dialysis 97.8 degF January 06, 2023 In-Center Hemodialysis Treatment 2273-36-86Y49:10:00.000Z 0630-80-86K38:44:13.000Z BP Sitting (Pre-Dialysis) 159/61 mmHg BP Sitting (Post-Dialysis) 139/71 mmHg Concurrent Access: falseAV Graft Upper Arm (Left) Arterial Sitting Heart Rate Pre-Dialysis 82 BPM Sitting H eart Rate Post-Dialysis 77 BPM Temperature Pre-Dialysis 97.8 degF Temperature Post -Dialysis 97.8 degF January 04, 2023 In-Center Hemodialysis Treatment 5077-50-64E33:15:13.000Z 6220-00-06M01:49:13.000Z BP Sitting (Pre-Dialysis) 166/71 mmHg BP Sitting (Post-Dialysis) 119/62 mmHg Concurrent Access: falseAV Graft Upper Arm (Left) Arterial Sitting Heart Rate Pre-Dialysis 80 BPM Sitting H eart Rate Post-Dialysis 74 BPM Temperature Pre-Dialysis 97.8 degF Temperature Post -Dialysis 97.8 degF January 02, 2023 In-Center Hemodialysis Treatment 6271-86-80H42:08:00.000Z 7366-37-81Z92:39:13.000Z BP Sitting (Pre-Dialysis) 168/79 mmHg BP Sitting (Post-Dialysis) 143/76 mmHg Concurrent Access: falseAV Graft Upper Arm (Left) Arterial Sitting Heart Rate Pre-Dialysis 82 BPM Sitting H eart Rate Post-Dialysis 78 BPM Temperature Pre-Dialysis 97.8 degF Temperature Post -Dialysis 97.8 degF December 30, 2022 In-Center Hemodialysis Treatment 3862-03-66K11:07:00.000Z 7056-18-33M36:40:54.000Z BP Sitting (Pre-Dialysis) 18/81 mmHg BP Sitting (Post-Dialysis) 152/33 mmHg Concurrent Access: falseAV Graft Upper Arm (Left) Arterial Sitting Heart Rate Pre-Dialysis 85 BPM Sitting H eart Rate Post-Dialysis 67 BPM Temperature Pre-Dialysis 98.1 degF Temperature Post -Dialysis 97.9 degF December 28, 2022 In-Center Hemodialysis Treatment 3100-98-83Z33:13:00.000Z 9913-07-89P90:45:54.000Z BP Sitting (Pre-Dialysis) 168/77 mmHg BP Sitting (Post-Dialysis) 158/89 mmHg Concurrent Access: falseAV Graft Upper Arm (Left) Arterial Sitting Heart Rate Pre-Dialysis 87 BPM Sitting H eart Rate Post-Dialysis 75 BPM Temperature Pre-Dialysis 97.9 degF Temperature Post -Dialysis 97.8 degF December 26, 2022 In-Center Hemodialysis Treatment 8414-32-46D50:09:00.000Z 8355-68-16J44:40:54.000Z BP Sitting (Pre-Dialysis) 174/75 mmHg BP Sitting (Post-Dialysis) 125/42 mmHg Concurrent Access: falseAV Graft Upper Arm (Left) Arterial Sitting Heart Rate Pre-Dialysis 84 BPM Sitting H eart Rate Post-Dialysis 75 BPM Temperature Pre-Dialysis 98.1 degF Temperature Post -Dialysis 97.3 degF December 23, 2022 In-Center Hemodialysis Treatment 0464-34-36M47:14:00.000Z 8708-49-98Q72:49:30.000Z BP Sitting (Pre-Dialysis) 168/85 mmHg BP Sitting (Post-Dialysis) 122/63 mmHg Concurrent Access: falseAV Graft Upper Arm (Left) Arterial Sitting Heart Rate Pre-Dialysis 84 BPM Sitting H eart Rate Post-Dialysis 75 BPM Temperature Pre-Dialysis 97.2 degF Temperature Post -Dialysis 97.9 degF December 21, 2022 In-Center Hemodialysis Treatment 1776-46-45Q96:15:00.000Z 1315-45-69D21:49:30.000Z BP Sitting (Pre-Dialysis) 147/71 mmHg BP Sitting (Post-Dialysis) 126/68 mmHg Concurrent Access: falseAV Graft Upper Arm (Left) Arterial Sitting Heart Rate Pre-Dialysis 78 BPM Sitting H eart Rate Post-Dialysis 75 BPM Temperature Pre-Dialysis 97.8 degF Temperature Post -Dialysis 97.8 degF December 19, 2022 In-Center Hemodialysis Treatment 7331-26-77A42:07:00.000Z 8086-11-78S90:45:30.000Z BP Sitting (Pre-Dialysis) 182/73 mmHg BP Sitting (Post-Dialysis) 124/62 mmHg Concurrent Access: falseAV Graft Upper Arm (Left) Arterial Sitting Heart Rate Pre-Dialysis 80 BPM Sitting H eart Rate Post-Dialysis 76 BPM Temperature Pre-Dialysis 97.9 degF Temperature Post -Dialysis 97.9 degF December 16, 2022 In-Center Hemodialysis Treatment 6844-26-22V22:16:00.000Z 4108-39-22Y97:48:23.000Z BP Sitting (Pre-Dialysis) 150/91 mmHg BP Sitting (Post-Dialysis) 125/68 mmHg Concurrent Access: falseAV Graft Upper Arm (Left) Arterial Sitting Heart Rate Pre-Dialysis 78 BPM Sitting H eart Rate Post-Dialysis 75 BPM Temperature Pre-Dialysis 97.8 degF Temperature Post -Dialysis 97.9 degF December 14, 2022 In-Center Hemodialysis Treatment 4591-41-72V67:46:00.000Z 7854-14-46S61:13:23.000Z BP Sitting (Pre-Dialysis) 182/87 mmHg BP Sitting (Post-Dialysis) 132/73 mmHg Concurrent Access: falseAV Graft Upper Arm (Left) Arterial Sitting Heart Rate Pre-Dialysis 92 BPM Sitting H eart Rate Post-Dialysis 82 BPM Temperature Pre-Dialysis 97.8 degF Temperature Post -Dialysis 97.8 degF December 12, 2022 In-Center Hemodialysis Treatment 1361-07-26T26:05:00.000Z 8207-17-75U85:39:12.000Z BP Sitting (Pre-Dialysis) 186/80 mmHg BP Sitting (Post-Dialysis) 187/94 mmHg Concurrent Access: falseAV Graft Upper Arm (Left) Arterial Sitting Heart Rate Pre-Dialysis 76 BPM BP Standing (Post-Dialysis) 186/91 mmHg Temperature Pre-Dialysis 97.8 degF Sitting Heart Ra te Post-Dialysis 69 BPM Standing Heart Rate Post-Luisa lysis 67 BPM Temperature Post-Dialysis 97 .8 degF December 09, 2022 In-Center Hemodialysis Treatment 4025-66-71Y26:05:00.000Z 5673-67-16I22:37:09.000Z BP Sitting (Pre-Dialysis) 175/81 mmHg BP Sitting (Post-Dialysis) 130/44 mmHg Concurrent Access: falseAV Graft Upper Arm (Left) Arterial Sitting Heart Rate Pre-Dialysis 79 BPM Sitting H eart Rate Post-Dialysis 72 BPM Temperature Pre-Dialysis 97.9 degF Temperature Post -Dialysis 97.6 degF December 08, 2022 In-Center Hemodialysis Treatment 6974-21-54I11:42:15.000Z 2867-03-69D59:14:16.000Z BP Sitting (Pre-Dialysis) 159/77 mmHg BP Sitting (Post-Dialysis) 139/74 mmHg Concurrent Access: falseAV Graft Upper Arm (Left) Arterial Sitting Heart Rate Pre-Dialysis 81 BPM Sitting H eart Rate Post-Dialysis 74 BPM Temperature Pre-Dialysis 97.4 degF Temperature Post -Dialysis 97.6 degF December 07, 2022 In-Center Hemodialysis Treatment 350 mL/min 500 mL/min Concurrent Access: false December 05, 2022 In-Center Hemodialysis Treatment 20 23 -0 4- 10 T1 1: 10 :0 0. 00 0Z 20 23 -0 4- 10 T1 4: 46 :0 9. 00 0Z BP Sitting (Pre-Dial ysis) 165/87 mmHg BP Sitting (Post-Luisa lysis) 159/79 mmHg Concurrent Access: falseAV Graft Upper Arm (Left) Arterial Sitting Heart Rate Pre-Dialysis 93 BPM Sitting H eart Rate Post-Dialysis 73 BPM Temperature Pre-Dialysis 98.1 degF Temperature Post -Dialysis 97.8 degF December 02, 2022 In-Center Hemodialysis Treatment 2163-92-50N80:14:00.000Z 5927-54-70E07:49:49.000Z BP Sitting (Pre-Dialysis) 147/37 mmHg BP Sitting (Post-Dialysis) 142/69 mmHg Concurrent Access: falseAV Graft Upper Arm (Left) Arterial Sitting Heart Rate Pre-Dialysis 78 BPM Sitting H eart Rate Post-Dialysis 74 BPM Temperature Pre-Dialysis 97.6 degF Temperature Post -Dialysis 97.6 degF November 30, 2022 In-Center Hemodialysis Treatment 0577-18-65N28:08:00.000Z 5424-47-85U52:39:49.000Z BP Sitting (Pre-Dialysis) 150/66 mmHg BP Sitting (Post-Dialysis) 140/69 mmHg Concurrent Access: falseAV Graft Upper Arm (Left) Arterial Sitting Heart Rate Pre-Dialysis 87 BPM Sitting H eart Rate Post-Dialysis 75 BPM Temperature Pre-Dialysis 97.7 degF Temperature Post -Dialysis 97.6 degF November 28, 2022 In-Center Hemodialysis Treatment 0873-85-19E80:15:00.000Z 8997-07-35E73:47:49.000Z BP Sitting (Pre-Dialysis) 152/77 mmHg BP Sitting (Post-Dialysis) 135/64 mmHg Concurrent Access: falseAV Graft Upper Arm (Left) Arterial BP Standing (Pre-Dialysis) 164/76 mmHg Sitti ng Heart Rate Post-Dialysis 82 BPM Sitting Heart Rate Pre-Dialysis 82 BPM Temperatu re Post-Dialysis 97.7 degF Standing Heart Rate Pre-Dialysis 83 BPM Temperature Pre-Dialysis 97.9 degF November 25, 2022 In-Center Hemodialysis Treatment 6160-34-41K10:22:00.000Z 3072-97-26H41:42:31.000Z BP Sitting (Pre-Dialysis) 164/62 mmHg BP Sitting (Post-Dialysis) 126/48 mmHg Concurrent Access: falseAV Graft Upper Arm (Left) Arterial Sitting Heart Rate Pre-Dialysis 81 BPM Sitting H eart Rate Post-Dialysis 77 BPM Temperature Pre-Dialysis 97.9 degF Temperature Post -Dialysis 97.6 degF November 23, 2022 In-Center Hemodialysis Treatment 9055-34-74F71:18:00.000Z 2708-33-36P51:53:31.000Z BP Sitting (Pre-Dialysis) 148/60 mmHg BP Sitting (Post-Dialysis) 119/59 mmHg Concurrent Access: falseAV Graft Upper Arm (Left) Arterial Sitting Heart Rate Pre-Dialysis 76 BPM Sitting H eart Rate Post-Dialysis 77 BPM Temperature Pre-Dialysis 98.1 degF Temperature Post -Dialysis 97.8 degF November 21, 2022 In-Center Hemodialysis Treatment 9479-82-00Q59:11:00.000Z 3865-33-35A88:43:31.000Z BP Sitting (Pre-Dialysis) 155/70 mmHg BP Sitting (Post-Dialysis) 124/60 mmHg Concurrent Access: falseAV Graft Upper Arm (Left) Arterial Sitting Heart Rate Pre-Dialysis 81 BPM Sitting H eart Rate Post-Dialysis 83 BPM Temperature Pre-Dialysis 97.6 degF Temperature Post -Dialysis 97.9 degF November 18, 2022 In-Center Hemodialysis Treatment 5804-01-21Y10:15:00.000Z 4836-92-10P26:47:16.000Z BP Sitting (Pre-Dialysis) 140/81 mmHg BP Sitting (Post-Dialysis) 110/42 mmHg Concurrent Access: falseAV Graft Upper Arm (Left) Arterial Sitting Heart Rate Pre-Dialysis 94 BPM Sitting H eart Rate Post-Dialysis 79 BPM Temperature Pre-Dialysis 97.9 degF Temperature Post -Dialysis 97.9 degF November 16, 2022 In-Center Hemodialysis Treatment 0929-93-34C68:14:00.000Z 3179-66-76E09:51:16.000Z BP Sitting (Pre-Dialysis) 161/60 mmHg BP Sitting (Post-Dialysis) 123/72 mmHg Concurrent Access: falseAV Graft Upper Arm (Left) Arterial Sitting Heart Rate Pre-Dialysis 80 BPM Sitting H eart Rate Post-Dialysis 80 BPM Temperature Pre-Dialysis 97.9 degF Temperature Post -Dialysis 97.4 degF November 14, 2022 In-Center Hemodialysis Treatment 4737-70-25W97:19:00.000Z 2717-85-24F90:54:16.000Z BP Sitting (Pre-Dialysis) 161/65 mmHg BP Sitting (Post-Dialysis) 135/67 mmHg Concurrent Access: falseAV Graft Upper Arm (Left) Arterial Sitting Heart Rate Pre-Dialysis 82 BPM Sitting H eart Rate Post-Dialysis 81 BPM Temperature Pre-Dialysis 97.6 degF Temperature Post -Dialysis 97.2 degF November 11, 2022 In-Center Hemodialysis Treatment 8629-29-43J91:13:00.000Z 4168-39-51C85:49:16.000Z BP Sitting (Pre-Dialysis) 167/78 mmHg BP Sitting (Post-Dialysis) 124/78 mmHg Concurrent Access: falseAV Graft Upper Arm (Left) Arterial Sitting Heart Rate Pre-Dialysis 86 BPM Sitting H eart Rate Post-Dialysis 65 BPM Temperature Pre-Dialysis 97 degF November 09, 2022 In-Center Hemodialysis Treatment 1304-16-86N37:21:00.000Z 9550-59-60T18:54:17.000Z BP Sitting (Pre-Dialysis) 146/70 mmHg BP Sitting (Post-Dialysis) 162/74 mmHg Concurrent Access: falseAV Graft Upper Arm (Left) Arterial Sitting Heart Rate Pre-Dialysis 83 BPM BP Standing (Post-Dialysis) 186/93 mmHg Temperature Pre-Dialysis 97.6 degF Sitting Heart Ra te Post-Dialysis 75 BPM Standing Heart Rate Post-Luisa lysis 77 BPM Temperature Post-Dialysis 97 .6 degF November 07, 2022 In-Center Hemodialysis Treatment 0980-49-23M38:20:00.000Z 7984-38-39A88:49:56.000Z BP Sitting (Pre-Dialysis) 74/77 mmHg BP Sitting (Post-Dialysis) 130/66 mmHg Concurrent Access: falseAV Graft Upper Arm (Left) Arterial Sitting Heart Rate Pre-Dialysis 81 BPM Sitting H eart Rate Post-Dialysis 67 BPM Temperature Pre-Dialysis 98.1 degF Temperature Post -Dialysis 98.1 degF November 04, 2022 In-Center Hemodialysis Treatment 6608-20-91R88:11:00.000Z 0301-67-48T26:45:55.000Z BP Sitting (Pre-Dialysis) 18/76 mmHg BP Sitting (Post-Dialysis) 139/57 mmHg Concurrent Access: falseAV Graft Upper Arm (Left) Arterial Sitting Heart Rate Pre-Dialysis 82 BPM Sitting H eart Rate Post-Dialysis 78 BPM Temperature Pre-Dialysis 97.6 degF November 02, 2022 In-Center Hemodialysis Treatment 5493-08-78I93:20:00.000Z 9221-76-20P19:58:55.000Z BP Sitting (Pre-Dialysis) 170/71 mmHg BP Sitting (Post-Dialysis) 158/69 mmHg Concurrent Access: falseAV Graft Upper Arm (Left) Arterial Sitting Heart Rate Pre-Dialysis 81 BPM Sitting H eart Rate Post-Dialysis 80 BPM Temperature Pre-Dialysis 97.6 degF Temperature Post -Dialysis 97 degF October 31, 2022 In-Center Hemodialysis Treatment 7075-03-88R97:04:00.000Z 9620-47-40V41:39:55.000Z BP Sitting (Pre-Dialysis) 174/59 mmHg BP Sitting (Post-Dialysis) 162/76 mmHg Concurrent Access: falseAV Graft Upper Arm (Left) Arterial Sitting Heart Rate Pre-Dialysis 81 BPM Sitting H eart Rate Post-Dialysis 70 BPM Temperature Pre-Dialysis 97.9 degF Temperature Post -Dialysis 97.8 degF October 28, 2022 In-Center Hemodialysis Treatment 9486-22-42S37:04:00.000Z 7530-90-59V74:40:55.000Z BP Sitting (Pre-Dialysis) 121/94 mmHg BP Sitting (Post-Dialysis) 164/75 mmHg Concurrent Access: falseAV Graft Upper Arm (Left) Arterial Sitting Heart Rate Pre-Dialysis 86 BPM Sitting H eart Rate Post-Dialysis 75 BPM Temperature Pre-Dialysis 98.1 degF Temperature Post -Dialysis 97.8 degF October 26, 2022 In-Center Hemodialysis Treatment 6799-69-64Z67:13:00.000Z 0860-40-23N11:54:55.000Z BP Sitting (Pre-Dialysis) 142/66 mmHg BP Sitting (Post-Dialysis) 115/67 mmHg Concurrent Access: falseAV Graft Upper Arm (Left) Arterial Sitting Heart Rate Pre-Dialysis 88 BPM Sitting H eart Rate Post-Dialysis 78 BPM Temperature Pre-Dialysis 97.6 degF Temperature Post -Dialysis 98.1 degF October 24, 2022 In-Center Hemodialysis Treatment 1719-81-19Q85:09:00.000Z 2454-22-91U70:39:15.000Z BP Sitting (Pre-Dialysis) 179/80 mmHg BP Sitting (Post-Dialysis) 114/66 mmHg Concurrent Access: falseAV Graft Upper Arm (Left) Arterial Sitting Heart Rate Pre-Dialysis 78 BPM Sitting H eart Rate Post-Dialysis 77 BPM Temperature Pre-Dialysis 97.8 degF October 21, 2022 In-Center Hemodialysis Treatment 4917-53-54Y10:13:00.000Z 6189-50-54W94:50:15.000Z BP Sitting (Pre-Dialysis) 160/71 mmHg BP Sitting (Post-Dialysis) 118/65 mmHg Concurrent Access: falseAV Graft Upper Arm (Left) Arterial Sitting Heart Rate Pre-Dialysis 81 BPM Sitting H eart Rate Post-Dialysis 75 BPM Temperature Pre-Dialysis 98.1 degF Temperature Post -Dialysis 97.3 degF October 19, 2022 In-Center Hemodialysis Treatment 7307-89-93K72:03:00.000Z 3058-80-00C37:38:10.000Z BP Sitting (Pre-Dialysis) 184/71 mmHg BP Sitting (Post-Dialysis) 155/78 mmHg Concurrent Access: falseAV Graft Upper Arm (Left) Arterial Sitting Heart Rate Pre-Dialysis 78 BPM Sitting H eart Rate Post-Dialysis 69 BPM Temperature Pre-Dialysis 98.1 degF Temperature Post -Dialysis 98.1 degF October 17, 2022 In-Center Hemodialysis Treatment 3958-83-97N22:20:00.000Z 2373-58-82T28:55:56.000Z BP Sitting (Pre-Dialysis) 182/72 mmHg BP Sitting (Post-Dialysis) 153/77 mmHg Concurrent Access: falseAV Graft Upper Arm (Left) Arterial Sitting Heart Rate Pre-Dialysis 92 BPM Sitting H eart Rate Post-Dialysis 78 BPM Temperature Pre-Dialysis 98.1 degF Temperature Post -Dialysis 98 degF October 14, 2022 In-Center Hemodialysis Treatment 3370-40-91M22:20:00.000Z 5169-41-63X21:50:37.000Z BP Sitting (Pre-Dialysis) 159/80 mmHg BP Sitting (Post-Dialysis) 129/71 mmHg Concurrent Access: falseAV Graft Upper Arm (Left) Arterial Sitting Heart Rate Pre-Dialysis 84 BPM Sitting H eart Rate Post-Dialysis 79 BPM Temperature Pre-Dialysis 98.1 degF Temperature Post -Dialysis 97.8 degF October 12, 2022 In-Center Hemodialysis Treatment 6980-53-67Q53:28:00.000Z 1014-88-90M87:06:37.000Z BP Sitting (Pre-Dialysis) 146/64 mmHg BP Sitting (Post-Dialysis) 142/78 mmHg Concurrent Access: falseAV Graft Upper Arm (Left) Arterial Sitting Heart Rate Pre-Dialysis 78 BPM Sitting H eart Rate Post-Dialysis 71 BPM Temperature Pre-Dialysis 97.6 degF Temperature Post -Dialysis 97.8 degF October 10, 2022 In-Center Hemodialysis Treatment 8322-15-78L25:12:00.000Z 3228-77-64O86:48:37.000Z BP Sitting (Pre-Dialysis) 187/79 mmHg BP Sitting (Post-Dialysis) 139/71 mmHg Concurrent Access: falseAV Graft Upper Arm (Left) Arterial Sitting Heart Rate Pre-Dialysis 83 BPM Sitting H eart Rate Post-Dialysis 76 BPM Temperature Pre-Dialysis 97.6 degF Temperature Post -Dialysis 97.6 degF October 07, 2022 In-Center Hemodialysis Treatment 8517-83-28Q67:20:00.000Z 8605-20-60Z45:55:27.000Z BP Sitting (Pre-Dialysis) 170/69 mmHg BP Sitting (Post-Dialysis) 153/81 mmHg Concurrent Access: falseAV Graft Upper Arm (Left) Arterial Sitting Heart Rate Pre-Dialysis 77 BPM Sitting H eart Rate Post-Dialysis 75 BPM Temperature Pre-Dialysis 97.6 degF Temperature Post -Dialysis 97.7 degF October 05, 2022 In-Center Hemodialysis Treatment 0517-82-57Y13:12:00.000Z [id number]:45:43.000Z BP Sitting (Pre-Dialysis) 167/66 mmHg BP Sitting (Post-Dialysis) 133/64 mmHg Concurrent Access: falseAV Graft Upper Arm (Left) Arterial Sitting Heart Rate Pre-Dialysis 80 BPM Sitting H eart Rate Post-Dialysis 76 BPM Temperature Pre-Dialysis 97.5 degF Temperature Post -Dialysis 97.6 degF October 03, 2022 In-Center Hemodialysis Treatment [id number]:13:00.000Z [id number]:45:27.000Z BP Sitting (Pre-Dialysis) 161/59 mmHg BP Sitting (Post-Dialysis) 163/69 mmHg Concurrent Access: falseAV Graft Upper Arm (Left) Arterial Sitting Heart Rate Pre-Dialysis 80 BPM Sitting H eart Rate Post-Dialysis 76 BPM Temperature Pre-Dialysis 97.9 degF Temperature Post -Dialysis 98.6 degF September 30, 2022 In-Center Hemodialysis Treatment [id number]:22:00.000Z [id number]:56:20.000Z BP Sitting (Pre-Dialysis) 146/67 mmHg BP Sitting (Post-Dialysis) 155/67 mmHg Concurrent Access: falseAV Graft Upper Arm (Left) Arterial Sitting Heart Rate Pre-Dialysis 87 BPM Sitting H eart Rate Post-Dialysis 77 BPM Temperature Pre-Dialysis 98.1 degF Temperature Post -Dialysis 98.1 degF September 28, 2022 In-Center Hemodialysis Treatment [id number]:15:00.000Z [id number]:54:20.000Z BP Sitting (Pre-Dialysis) 170/76 mmHg BP Sitting (Post-Dialysis) 170/70 mmHg Concurrent Access: falseAV Graft Upper Arm (Left) Arterial Sitting Heart Rate Pre-Dialysis 84 BPM Sitting H eart Rate Post-Dialysis 79 BPM Temperature Pre-Dialysis 97.4 degF Temperature Post -Dialysis 97.6 degF September 26, 2022 In-Center Hemodialysis Treatment [id number]:23:00.000Z [id number]:56:20.000Z BP Sitting (Pre-Dialysis) 151/86 mmHg BP Sitting (Post-Dialysis) 139/69 mmHg Concurrent Access: falseAV Graft Upper Arm (Left) Arterial Sitting Heart Rate Pre-Dialysis 85 BPM Sitting H eart Rate Post-Dialysis 77 BPM Temperature Pre-Dialysis 97.6 degF Temperature Post -Dialysis 97.9 degF September 23, 2022 In-Center Hemodialysis Treatment [id number]:27:00.000Z [id number]:01:40.000Z BP Sitting (Pre-Dialysis) 187/75 mmHg BP Sitting (Post-Dialysis) 145/74 mmHg Concurrent Access: falseAV Graft Upper Arm (Left) Arterial Sitting Heart Rate Pre-Dialysis 88 BPM Sitting H eart Rate Post-Dialysis 78 BPM Temperature Pre-Dialysis 98.7 degF September 21, 2022 In-Center Hemodialysis Treatment [id number]:16:00.000Z [id number]:47:40.000Z BP Sitting (Pre-Dialysis) 152/73 mmHg BP Sitting (Post-Dialysis) 154/68 mmHg Concurrent Access: falseAV Graft Upper Arm (Left) Arterial Sitting Heart Rate Pre-Dialysis 85 BPM Sitting H eart Rate Post-Dialysis 78 BPM Temperature Pre-Dialysis 97.9 degF Temperature Post -Dialysis 97.6 degF September 19, 2022 In-Center Hemodialysis Treatment [id number]:12:00.000Z [id number]:19:40.000Z BP Sitting (Pre-Dialysis) 180/86 mmHg BP Sitting (Post-Dialysis) 187/79 mmHg Concurrent Access: falseAV Graft Upper Arm (Left) Arterial Sitting Heart Rate Pre-Dialysis 92 BPM Sitting H eart Rate Post-Dialysis 83 BPM Temperature Pre-Dialysis 97.8 degF Temperature Post -Dialysis 97.6 degF September 16, 2022 In-Center Hemodialysis Treatment [id number]:08:00.000Z [id number]:15:51.000Z BP Sitting (Pre-Dialysis) 199/80 mmHg BP Sitting (Post-Dialysis) 155/83 mmHg Concurrent Access: falseAV Graft Upper Arm (Left) Arterial Sitting Heart Rate Pre-Dialysis 87 BPM Sitting H eart Rate Post-Dialysis 87 BPM Temperature Pre-Dialysis 97.2 degF Temperature Post -Dialysis 97.3 degF September 14, 2022 In-Center Hemodialysis Treatment [id number]:11:00.000Z [id number]:20:51.000Z BP Sitting (Pre-Dialysis) 205/79 mmHg BP Sitting (Post-Dialysis) 176/76 mmHg Concurrent Access: falseAV Graft Upper Arm (Left) Arterial Sitting Heart Rate Pre-Dialysis 100 BPM Sitting H eart Rate Post-Dialysis 94 BPM Temperature Pre-Dialysis 98.2 degF Temperature Post -Dialysis 97.8 degF DIALYSIS ORDER Dialysis Procedure Orders Type of Dialysis Procedure Order Order Date/Time Observations In-Center Hemodialysis Treatment February Target Weight 105 kg Dialysate Flow Rate 500 mL/min Blood Flow Rate 450 mL/min Treatment Time 210 min(total) Max UF Rate 13 mL/kg/hr Base Sodium Dialysate Base Sodium 138 mE q/L dialysate_temp 36.5 C BiCarb Dialysate BiCarbonate 37 meq/L Access Concurrent No Arterial Access AV Graft (Upper Arm (Left)) Venous Access AV Graft (Upper Arm (Left)) Arterial Needle Display DAVID HELTON, 15 G x 1, SHARP , TWIN Venous Needle DAVID HELTON, 15G x 1, SHARP , TWIN Dialyzer Nipro Elisio 15H 126 4 [email or web address] Dialysate Bath Potassium Potassium 3 mEq /L Dialysate Bath Calcium Calcium 2.5 mEq/L Results Adequacy Description Draw Date Result/Unit Status Ref Range Result Comments TOTAL HOURS/WEEK DIALYSIS 2025-03-04 22:29:13 4 hrs F WEIGHT - PRE DAY 1 2025-03-04 22:29:13 106 kg F Residual kt/v 2025-03-04 22:29:13 F VT (KT/V TX VOL) 2025-03-04 22:29:13 39.9 L F Dialyzer YOUNG 2025-03-04 22:29:13 1264 Calc F BSA CHERISE 2025-03-04 22:29:13 1.99 sq m F DIALYZER FLOW-QD 2025-03-04 22:29:13 500 mL/min F BLOOD FLOW-QWB 2025-03-04 22:29:13 419 F CURRENT KRU 2025-03-04 22:29:13 F KT/V PRESCRIBED 2025-03-04 22:29:13 1.8 F Std Renal KT/V 2025-03-04 22:29:13 N/A F VM (KT/V MEAN VOL) 2025-03-04 22:29:13 41.5 F LENGTH OF DIALYSIS 2025-03-04 22:29:13 210 min F spKt/V 2025-03-04 22:29:13 1.45 F PRESCRIBED DAYS/WEEK 2025-03-04 22:29:13 3 Day/Wk F WEIGHT - POST DAY 1 2025-03-04 22:29:13 104.6 kg F AMPUTATE FACTOR 2025-03-04 22:29:13 0 F nPCR 2025-03-04 22:29:13 0.44 G/KG/D F Total Kt/V 2025-03-04 22:29:13 1.45 F eKt/V 2025-03-04 22:29:13 1.23 F URR% 2025-03-04 22:29:13 73 % F stdKT/V Total 2025-03-04 22:29:13 N/A F PATIENT AGE 2025-03-04 22:29:13 64 Years F TBW (Ji) 2025-03-04 22:29:13 39.99 Liters F stdKt/V (DIAL) 2025-03-04 22:29:13 N/A F HEIGHT IN INCHES 2025-03-04 22:29:13 60 Inches F WEIGHT (KG) 2025-03-04 22:29:13 105.5 kg F Urea nitrogen [Mass/volume] in Serum or Plasma 2025-03-04 22:27:15 26 mg/dL F 9.0-23.0 Urea nitrogen [Mass/volume] in Serum or Plasma --post dialysis 2025-03-04 20:14:15 7 mg/dL F 9.0-23.0 Creatinine [Mass/volume] in Serum or Plasma 2025-02-06 19:56:14 7.92 mg/dL F 0.55-1.02 TOTAL HOURS/WEEK DIALYSIS 2025-01-31 12:51:10 7 hrs F Dialyzer YOUNG 2025-01-31 12:51:10 1264 Calc F BLOOD FLOW-QWB 2025-01-31 12:51:10 450 F stdKt/V (DIAL) 2025-01-31 12:51:10 N/A F Total Kt/V 2025-01-31 12:51:10 1.39 F LENGTH OF DIALYSIS 2025-01-31 12:51:10 211 min F VM (KT/V MEAN VOL) 2025-01-31 12:51:10 42 F CURRENT KRU 2025-01-31 12:51:10 F AMPUTATE FACTOR 2025-01-31 12:51:10 0 F DIALYZER FLOW-QD 2025-01-31 12:51:10 500 mL/min F WEIGHT - POST DAY 1 2025-01-31 12:51:10 105.5 kg F VT (KT/V TX VOL) 2025-01-31 12:51:10 42.8 L F URR% 2025-01-31 12:51:10 73 % F WEIGHT (KG) 2025-01-31 12:51:10 105.5 kg F nPCR 2025-01-31 12:51:10 0.33 G/KG/D F KT/V PRESCRIBED 2025-01-31 12:51:10 1.8 F BSA CHERISE 2025-01-31 12:51:10 1.99 sq m F spKt/V 2025-01-31 12:51:10 1.39 F HEIGHT IN INCHES 2025-01-31 12:51:10 60 Inches F PATIENT AGE 2025-01-31 12:51:10 64 Years F Residual kt/v 2025-01-31 12:51:10 F Std Renal KT/V 2025-01-31 12:51:10 N/A F TBW (Ji) 2025-01-31 12:51:10 40.21 Liters F PRESCRIBED DAYS/WEEK 2025-01-31 12:51:10 3 Day/Wk F eKt/V 2025-01-31 12:51:10 1.19 F stdKT/V Total 2025-01-31 12:51:10 N/A F WEIGHT - PRE DAY 1 2025-01-31 12:51:10 106.5 kg F Urea nitrogen [Mass/volume] in Serum or Plasma 2025-01-31 12:49:18 22 mg/dL F 9.0-23.0 Urea nitrogen [Mass/volume] in Serum or Plasma --post dialysis 2025-01-30 13:53:24 6 mg/dL F 9.0-23.0 URR% 2025-01-11 17:31:10 69 % F stdKT/V Total 2025-01-11 17:31:10 N/A F TOTAL HOURS/WEEK DIALYSIS 2025-01-11 17:31:10 5 hrs F KT/V PRESCRIBED 2025-01-11 17:31:10 1.77 F VM (KT/V MEAN VOL) 2025-01-11 17:31:10 41.7 F PATIENT AGE 2025-01-11 17:31:10 64 Years F PRESCRIBED DAYS/WEEK 2025-01-11 17:31:10 3 Day/Wk F DIALYZER FLOW-QD 2025-01-11 17:31:10 500 mL/min F WEIGHT - POST DAY 1 2025-01-11 17:31:10 111.4 kg F HEIGHT IN INCHES 2025-01-11 17:31:10 60 Inches F LENGTH OF DIALYSIS 2025-01-11 17:31:10 210 min F CURRENT KRU 2025-01-11 17:31:10 F Total Kt/V 2025-01-11 17:31:10 1.33 F VT (KT/V TX VOL) 2025-01-11 17:31:10 43.3 L F eKt/V 2025-01-11 17:31:10 1.14 F WEIGHT (KG) 2025-01-11 17:31:10 108 kg F nPCR 2025-01-11 17:31:10 0.74 G/KG/D F Residual kt/v 2025-01-11 17:31:10 F spKt/V 2025-01-11 17:31:10 1.33 F BLOOD FLOW-QWB 2025-01-11 17:31:10 417 F WEIGHT - PRE DAY 1 2025-01-11 17:31:10 113.6 kg F Dialyzer YOUNG 2025-01-11 17:31:10 1264 Calc F BSA CHERISE 2025-01-11 17:31:10 2.01 sq m F AMPUTATE FACTOR 2025-01-11 17:31:10 0 F stdKt/V (DIAL) 2025-01-11 17:31:10 N/A F TBW (Ji) 2025-01-11 17:31:10 41.67 Liters F Std Renal KT/V 2025-01-11 17:31:10 N/A F Urea nitrogen [Mass/volume] in Serum or Plasma 2025-01-11 17:28:18 45 mg/dL F 9.0-23.0 Urea nitrogen [Mass/volume] in Serum or Plasma --post dialysis 2025-01-11 15:22:10 14 mg/dL F 9.0-23.0 PATIENT AGE 2024-12-31 20:00:53 64 Years F stdKt/V (DIAL) 2024-12-31 20:00:53 N/A F KT/V PRESCRIBED 2024-12-31 20:00:53 1.52 F Residual kt/v 2024-12-31 20:00:53 F Unable to calculate: Post BUN lab result is unknown stdKT/V Total 2024-12-31 20:00:53 N/A F DIALYZER FLOW-QD 2024-12-31 20:00:53 500 mL/min F BLOOD FLOW-QWB 2024-12-31 20:00:53 413 F PRESCRIBED DAYS/WEEK 2024-12-31 20:00:53 3 Day/Wk F eKt/V 2024-12-31 20:00:53 0.92 F nPCR 2024-12-31 20:00:53 0.7 G/KG/D F VM (KT/V MEAN VOL) 2024-12-31 20:00:53 41.2 F Std Renal KT/V 2024-12-31 20:00:53 N/A F HEIGHT IN INCHES 2024-12-31 20:00:53 60 Inches F Total Kt/V 2024-12-31 20:00:53 1.1 F spKt/V 2024-12-31 20:00:53 1.1 F Dialyzer YOUNG 2024-12-31 20:00:53 1264 Calc F WEIGHT - PRE DAY 1 2024-12-31 20:00:53 113.3 kg F AMPUTATE FACTOR 2024-12-31 20:00:53 0 F TBW (Ji) 2024-12-31 20:00:53 41.72 Liters F URR% 2024-12-31 20:00:53 63 % F WEIGHT (KG) 2024-12-31 20:00:53 108 kg F CURRENT KRU 2024-12-31 20:00:53 F Unable to calculate: Post BUN lab result is unknown TOTAL HOURS/WEEK DIALYSIS 2024-12-31 20:00:53 10 hrs F BSA CHERISE 2024-12-31 20:00:53 2.01 sq m F WEIGHT - POST DAY 1 2024-12-31 20:00:53 111.6 kg F LENGTH OF DIALYSIS 2024-12-31 20:00:53 181 min F VT (KT/V TX VOL) 2024-12-31 20:00:53 45.3 L F Urea nitrogen [Mass/volume] in Serum or Plasma --post dialysis 2024-12-31 14:33:18 18 mg/dL F 9.0-23.0 Creatinine [Mass/volume] in Serum or Plasma 2024-12-31 13:56:19 8.92 mg/dL F 0.5-1.1 Urea nitrogen [Mass/volume] in Serum or Plasma 2024-12-31 13:56:19 48 mg/dL F 9.0-23.0 Urea nitrogen [Mass/volume] in Serum or Plasma --post dialysis VT (KT/V TX VOL) URR% Std Renal KT/V VM (KT/V MEAN VOL) BLOOD FLOW-QWB KT/V PRESCRIBED WEIGHT - PRE DAY 1 Total Kt/V HEIGHT IN INCHES PRESCRIBED DAYS/WEEK eKt/V Urea nitrogen [Mass/volume] in Serum or Plasma BSA CHERISE LENGTH OF DIALYSIS CURRENT KRU Residual kt/v AMPUTATE FACTOR WEIGHT (KG) stdKt/V (DIAL) nPCR Dialyzer YOUNG TOTAL HOURS/WEEK DIALYSIS PATIENT AGE WEIGHT - POST DAY 1 TBW (Ji) spKt/V DIALYZER FLOW-QD stdKT/V Total Anemia Description Draw Date Result/Unit Status Ref Range Result Comments HCT CALC HGBX3 2025-02-21 01:40:57 31.2 % F 37.0-47.0 Hemoglobin [Mass/volume] in Blood 2025-02-21 01:40:16 10.4 g/dL F 12.0-16.0 IRON SATURATION 2025-02-06 23:24:27 32 % F 16.0-46.0 TIBC 2025-02-06 23:24:27 197 ug/dL F 250.0-425.0 Iron [Mass/volume] in Serum or Plasma 2025-02-06 23:20:00 63 ug/dL F 50.0-170.0 Iron binding capacity.unsaturated [Mass/volume] in Serum or Plasma 2025-02-06 23:20:00 134 ug/dL F 80.0-375.0 Ferritin [Mass/volume] in Serum or Plasma 2025-02-06 18:16:18 859 ng/mL F 10.0-291.0 HCT CALC HGBX3 2025-02-06 17:10:13 29.1 % F 37.0-47.0 MCH [Entitic mass] by Automated count 2025-02-06 17:09:16 26.7 pg F 25.9-34.2 MCHC [Mass/volume] by Automated count 2025-02-06 17:09:16 29.1 g/dL F 29.6-35.3 Erythrocytes [#/volume] in Blood by Automated count 2025-02-06 17:09:16 3.65 x 10^6 cells/uL F 3.85-5.2 Erythrocyte distribution width [Ratio] by Automated count 2025-02-06 17:09:14 16.5 % F 11.0-15.0 Hemoglobin [Mass/volume] in Blood 2025-02-06 17:09:14 9.7 g/dL F 12.0-16.0 Platelets [#/volume] in Blood by Automated count 2025-02-06 17:09:14 255 x 10^3 cells/uL F 140.0-450.0 Hematocrit [Volume Fraction] of Blood by Automated count 2025-02-06 17:09:14 33.4 % F 37.0-47.0 MCV [Entitic volume] by Automated count 2025-02-06 17:09:14 91.7 fL F 80.0-100.0 HCT CALC HGBX3 2025-01-30 21:55:15 see comments F 37.0-47.0 Unable to Calculate. IRON SATURATION 2025-01-30 07:34:04 26 % F 16.0-46.0 TIBC 2025-01-30 07:34:04 202 ug/dL F 250.0-425.0 Iron [Mass/volume] in Serum or Plasma 2025-01-30 06:59:16 53 ug/dL F 50.0-170.0 Iron binding capacity.unsaturated [Mass/volume] in Serum or Plasma 2025-01-30 06:59:12 149 ug/dL F 80.0-375.0 Ferritin [Mass/volume] in Serum or Plasma 2025-01-17 00:05:32 1045 ng/mL F 10.0-291.0 HCT CALC HGBX3 2025-01-11 16:59:39 27.3 % F 37.0-47.0 Hemoglobin [Mass/volume] in Blood 2025-01-11 16:58:21 9.1 g/dL F 12.0-16.0 IRON SATURATION 2024-12-31 20:44:17 36 % F 16.0-46.0 TIBC 2024-12-31 20:44:17 186 ug/dL F 250.0-425.0 Iron [Mass/volume] in Serum or Plasma 2024-12-31 20:31:38 67 ug/dL F 50.0-170.0 Iron binding capacity.unsaturated [Mass/volume] in Serum or Plasma 2024-12-31 20:31:38 119 ug/dL F 80.0-375.0 HCT CALC HGBX3 2024-12-31 17:15:36 27.9 % F 37.0-47.0 Erythrocyte distribution width [Ratio] by Automated count 2024-12-31 17:14:09 17.7 % F 11.0-15.0 Hemoglobin [Mass/volume] in Blood 2024-12-31 17:14:09 9.3 g/dL F 12.0-16.0 MCH [Entitic mass] by Automated count 2024-12-31 17:14:09 26.6 pg F 25.9-34.2 MCHC [Mass/volume] by Automated count 2024-12-31 17:14:09 29.4 g/dL F 29.6-35.3 Erythrocytes [#/volume] in Blood by Automated count 2024-12-31 17:14:09 3.49 x 10^6 cells/uL F 3.85-5.2 Platelets [#/volume] in Blood by Automated count 2024-12-31 17:14:07 285 x 10^3 cells/uL F 140.0-450.0 Hematocrit [Volume Fraction] of Blood by Automated count 2024-12-31 17:14:07 31.5 % F 37.0-47.0 MCV [Entitic volume] by Automated count 2024-12-31 17:14:07 90.3 fL F 80.0-100.0 Ferritin [Mass/volume] in Serum or Plasma 2024-12-31 12:48:16 F CANCELED - TEST CANCELED,CANCEL ED - TEST CANCELED Comorbidities Description Draw Date Result/Unit Status Ref Range Result Comments Hemoglobin A1c/Hemoglobin.total in Blood 2024-12-31 17:41:09 6.8 %A1c F 0.0-5.6 FluidBP Description Draw Date Result/Unit Status Ref Range Result Comments Sodium [Moles/volume] in Serum or Plasma 2025-02-06 23:20:00 141 mEq/L F 136.0-145.0 Sodium [Moles/volume] in Serum or Plasma 2024-12-31 20:31:38 142 mEq/L F 132.0-146.0 General Description Draw Date Result/Unit Status Ref Range Result Comments Chloride [Moles/volume] in Serum or Plasma 2025-02-06 23:20:00 103 mEq/L F 98.0-107.0 Aspartate aminotransferase [Enzymatic activity/volume] in Serum or Plasma 2025-02-06 19:56:14 13 U/L F 0.0-33.0 Alanine aminotransferase [Enzymatic activity/volume] in Serum or Plasma 2025-02-06 19:56:14 7 U/L F 10.0-49.0 Chloride [Moles/volume] in Serum or Plasma 2024-12-31 20:31:38 107 mEq/L F 99.0-109.0 Aspartate aminotransferase [Enzymatic activity/volume] in Serum or Plasma 2024-12-31 13:56:19 10 U/L F 0.0-33.0 Alanine aminotransferase [Enzymatic activity/volume] in Serum or Plasma 2024-12-31 13:56:19 9 U/L F 10.0-49.0 InfectionVaccination Description Draw Date Result/Unit Status Ref Range Result Comments Monocytes/100 leukocytes in Blood by Automated count 2025-02-06 17:09:16 10.7 % F Eosinophils/100 leukocytes in Blood by Automated count 2025-02-06 17:09:16 4.8 % F Basophils/100 leukocytes in Blood by Automated count 2025-02-06 17:09:16 0.4 % F Monocytes [#/volume] in Blood by Automated count 2025-02-06 17:09:16 661 Cells/uL F 0.0-1100.0 Neutrophils [#/volume] in Blood by Automated count 2025-02-06 17:09:16 3034 Cells/uL F 2000.0-8800.0 Leukocytes [#/volume] in Blood by Automated count 2025-02-06 17:09:16 6.2 x 10^3 cells/uL F 4.0-11.0 Lymphocytes [#/volume] in Blood by Automated count 2025-02-06 17:09:16 2169 Cells/uL F 620.0-3660.0 Neutrophils/100 leukocytes in Blood by Automated count 2025-02-06 17:09:14 49.1 % F Lymphocytes/100 leukocytes in Blood by Automated count 2025-02-06 17:09:14 35.1 % F Basophils [#/volume] in Blood by Automated count 2025-02-06 17:09:14 25 Cells/uL F 0.0-400.0 Eosinophils [#/volume] in Blood by Automated count 2025-02-06 17:09:14 297 Cells/uL F 0.0-700.0 Neutrophils [#/volume] in Blood by Automated count 2024-12-31 17:14:09 5881 Cells/uL F 2000.0-8800.0 Basophils/100 leukocytes in Blood by Automated count 2024-12-31 17:14:07 0.3 % F Monocytes/100 leukocytes in Blood by Automated count 2024-12-31 17:14:07 8.3 % F Eosinophils/100 leukocytes in Blood by Automated count 2024-12-31 17:14:07 1.3 % F Lymphocytes/100 leukocytes in Blood by Automated count 2024-12-31 17:14:07 24.1 % F Neutrophils/100 leukocytes in Blood by Automated count 2024-12-31 17:14:07 66 % F Monocytes [#/volume] in Blood by Automated count 2024-12-31 17:14:07 740 Cells/uL F 0.0-1100.0 Basophils [#/volume] in Blood by Automated count 2024-12-31 17:14:07 27 Cells/uL F 0.0-400.0 Eosinophils [#/volume] in Blood by Automated count 2024-12-31 17:14:07 116 Cells/uL F 0.0-700.0 Leukocytes [#/volume] in Blood by Automated count 2024-12-31 17:14:07 8.9 x 10^3 cells/uL F 4.0-11.0 Lymphocytes [#/volume] in Blood by Automated count 2024-12-31 17:14:07 2147 Cells/uL F 620.0-3660.0 MineralBone Disorder Description Draw Date Result/Unit Status Ref Range Result Comments CA CORRECTED 2025-02-06 23:26:55 9.8 mg/dL F CA/PHOS PRODUCT 2025-02-06 23:24:27 43.2 Calc F 21.0-53.0 CA*PO4 CORRCTD 2025-02-06 23:24:27 45.1 Calc F 21.0-53.0 Calcium [Mass/volume] in Serum or Plasma 2025-02-06 23:20:00 9.4 mg/dL F 8.7-10.4 Phosphate [Mass/volume] in Serum or Plasma 2025-02-06 19:56:14 4.6 mg/dL F 2.4-5.1 Alkaline phosphatase [Enzymatic activity/volume] in Serum or Plasma 2025-02-06 19:56:14 97 U/L F 46.0-116.0 Parathyrin.intact [Mass/volume] in Serum or Plasma 2025-02-06 18:16:18 286 pg/mL F 18.0-80.0 CA CORRECTED 2024-12-31 20:46:29 9.1 mg/dL F CA*PO4 CORRCTD 2024-12-31 20:44:17 59.4 Calc F 21.0-53.0 CA/PHOS PRODUCT 2024-12-31 20:44:17 55.3 Calc F 21.0-53.0 Phosphate [Mass/volume] in Serum or Plasma 2024-12-31 20:31:38 6.5 mg/dL F 2.4-5.1 Calcium [Mass/volume] in Serum or Plasma 2024-12-31 20:31:38 8.5 mg/dL F 8.7-10.4 25-Hydroxyvitamin D3+25-Hydroxyvitamin D2 [Mass/volume] in Serum or Plasma 2024-12-31 14:08:21 43.4 ng/mL F Alkaline phosphatase [Enzymatic activity/volume] in Serum or Plasma 2024-12-31 13:56:19 127 U/L F 46.0-116.0 Parathyrin.intact [Mass/volume] in Serum or Plasma 2024-12-31 12:48:16 F CANCELED - TEST CANCELED,CANCELED - TEST CANCELED Nutrition Description Draw Date Result/Unit Status Ref Range Result Comments Potassium [Moles/volume] in Serum or Plasma 2025-02-06 23:20:00 4.6 mEq/L F 3.5-5.1 GLOBULIN 2025-02-06 19:57:24 2.3 g/dL F 0.9-5.0 A/G RATIO 2025-02-06 19:57:24 1.5 Calc F 1.0-2.5 Lactate dehydrogenase [Enzymatic activity/volume] in Serum or Plasma 2025-02-06 19:56:14 168 U/L F 120.0-246.0 Bicarbonate [Moles/volume] in Serum or Plasma 2025-02-06 19:56:14 22 mEq/L F 20.0-31.0 Albumin [Mass/volume] in Serum or Plasma by Bromocresol green (BCG) dye binding method 2025-02-06 19:56:14 3.5 g/dL F 3.2-4.8 Protein [Mass/volume] in Serum or Plasma 2025-02-06 19:56:14 5.8 g/dL F 5.7-8.2 Glucose [Mass/volume] in Serum or Plasma 2025-02-06 19:56:14 79 mg/dL F 74.0-106.0 Potassium [Moles/volume] in Serum or Plasma 2024-12-31 20:31:38 4.4 mEq/L F 3.5-5.5 Cobalamin (Vitamin B12) [Mass/volume] in Serum or Plasma 2024-12-31 14:08:21 363 pg/mL F 211.0-911.0 VLDL-CHOL(CALC) 2024-12-31 13:57:07 36 mg/dL F 0.0-29.0 LDL-CHOLESTEROL 2024-12-31 13:57:07 101 mg/dL F 0.0-99.0 A/G RATIO 2024-12-31 13:57:07 1.5 Calc F 1.0-2.5 GLOBULIN 2024-12-31 13:57:07 2.2 g/dL F 0.9-5.0 CHOL/HDL RATIO 2024-12-31 13:57:07 4.1 Calc F 3.3-5.0 Protein [Mass/volume] in Serum or Plasma 2024-12-31 13:56:19 182 mg/dL F 0.0-149.0 Cholesterol [Mass/volume] in Serum or Plasma 2024-12-31 13:56:19 181 mg/dL F 0.0-199.0 Lactate dehydrogenase [Enzymatic activity/volume] in Serum or Plasma 2024-12-31 13:56:19 207 U/L F 120.0-246.0 Bicarbonate [Moles/volume] in Serum or Plasma 2024-12-31 13:56:19 22 mEq/L F 20.0-31.0 Albumin [Mass/volume] in Serum or Plasma by Bromocresol green (BCG) dye binding method 2024-12-31 13:56:19 3.2 g/dL F 3.4-4.8 Cholesterol in HDL [Mass/volume] in Serum or Plasma 2024-12-31 13:56:19 44 mg/dL F 40.0-60.0 Protein [Mass/volume] in Serum or Plasma 2024-12-31 13:56:19 5.4 g/dL F 5.7-8.2 Glucose [Mass/volume] in Serum or Plasma 2024-12-31 13:56:19 180 mg/dL F 70.0-99.0 Encounters No encounter information to report Immunizations Ordered Immunization Name Filled Immunization Name Date Status Comments Refusal Reason TST-PPD intradermal 2024-09-30 14:26:38 Influenza, high-dose, quadrivalent, PF 2024-05-29 14:30:00 TST-PPD intradermal 2023-10-04 13:47:40 Influenza Vaccination 2023-05-16 05:00:00 Hep B, adult 2023-04-21 11:45:49 Hep B, adult 2022-12-19 13:52:08 Hep B, adult 2022-11-16 14:23:04 Hep B, adult 2022-10-14 14:47:04 TST-PPD intradermal 2022-10-03 14:21:56 TST-PPD intradermal 2022-09-19 15:10:00 Influenza Vaccination 2022-06-06 05:00:00 Pneumococcal Vaccination 2022-03-07 05:00:00 Pneumococcal Vaccination 2022-03-07 05:00:00 Plan of Treatment Planned Activity Provider Planned Date Details Commen ts Diagnostic Test Pending HERNAN JOSE 2025-03-02 05:00:00 Hemoglobin [Mass/volume] in Blood [code = 718-7] Diagnostic Test Pending Gerson Valle 2022-09-13 21:22:35 25-Hydroxyvitamin D3+25-Hydroxyvitamin D2 [Mass/volume] in Serum or Plasma [code = 06008-8] Diagnostic Test Pending HERNAN JOSE 2025-02-25 05:00:00 Alanine aminotransferase [Enzymatic activity/volume] in Serum or Plasma [code = 1742-6] Diagnostic Test Pending HERNAN [facility] 2025-02-25 05:00:00 Parathyrin.intact [Mass/volume] in Serum or Plasma [code = 2731-8] Diagnostic Test Pending Gerson Valle 2022-09-13 21:22:29 Cobalamin (Vitamin B12) [Mass/volume] in Serum or Plasma [code = 2132-9] Diagnostic Test Pending HERNAN [facility] 2025-02-25 05:00:00 Ferritin [Mass/volume] in Serum or Plasma [code = 2276-4] Diagnostic Test Pending Gerson Valle 2022-09-13 21:22:20 Sodium [Moles/volume] in Serum or Plasma [code = 2951-2] Diagnostic Test Pending HERNANKEATON POLANCOMAN 2024-11-26 16:28:02 Glucose [Mass/volume] in Serum or Plasma [code = 2345-7] Diagnostic Test Pending Gerson Valle 2022-09-13 21:21:55 Potassium [Moles/volume] in Serum or Plasma [code = 2823-3] Diagnostic Test Pending Gerson Valle 2022-09-13 21:21:06 Hemoglobin A1c/Hemoglobin.total in Blood [code = 4548-4] Diagnostic Test Pending Gerson Valle 2022-09-13 21:19:36 Creatinine [Mass/volume] in Serum or Plasma [code = 2160-0] Diagnostic Test Pending Gerson Valle 2022-09-13 21:17:05 Aluminum [Mass/volume] in Serum or Plasma [code = 5574-9] Diagnostic Test Pending [facility] 2025-03-03 18:46:28 In-Center Hemodialysis Treatment [code = VKQ817] Diet Order [facility] February 20, 2025 Diet Calorie 30 kcal/kg Fluid Value 1000 mL/d Phosphorus Value 1000 mg/d Potassium Value 2500 mg/d Protein Value 1.3 gm/kg Sodium Value 2000 mg/d Calculated Weight 72.3 kg dietary_diet_modification Carb Controlle d;
--- NOTE | 2025-03-10 07:52 | PC.NURSE ---
PT refusing to cooperate with this RN's assessments. EDP aware and at bedside. PT still noncooperative and shouting at staff.
[2025-03-10] MEDS: OLANZapine 5 MG, WATER, STERILE FOR INJECTION 2.1 ML IM (07:58)
--- NOTE | 2025-03-10 08:11 | PC.NURSE ---
Pt moved to private room
[2025-03-10] MEDS: LORazepam INJ (*CRX) 2 MG/ML VIAL 1 MG IM (08:35)
[2025-03-10] MEDS: LORazepam INJ (*CRX) 2 MG/ML VIAL IM (08:59)
--- NOTE | 2025-03-10 09:14 | PC.NURSE ---
blood cultures obtained by EDP
[2025-03-10 09:25] LABS: Hematocrit 35.3 % (37.0-47.0); Hemoglobin 10.8 g/dL (12.0-15.0); Immature Granulocyte Percent A 0.3 % (0-0.5); Lymphocytes Absolute Auto 2.01 K/mm3 (0.9-3.2); Mean Corpuscular HGB Conc 30.6 g/dl (32-36); Mean Corpuscular Hemoglobin 26.5 pg (26-34); Mean Corpuscular Volume 86.5 fl (80-100); Nucleated Red Blood Cells Absolute Auto 0.000 K/mm3 (0.0-0.012); Nucleated Red Blood Cells Perc 0.0 % (0.0-0.2); Platelet Count Result 325 k/mm3 (150-375); Red Blood Count 4.08 M/mm3 (4.2-5.4); White Blood Count 7.1 K/mm3 (4.5-10.0)
[2025-03-10 09:43] LABS: INR 1.0; Prothrombin Time 13.1 Seconds (11.1-14.7)
[2025-03-10 09:45] LABS: Partial Thromboplastin Time 27.3 Seconds (22.3-36.8)
[2025-03-10 09:54] LABS: Alanine Aminotransferase 9 U/L (6-35); Albumin Level 3.5 g/dL (3.5-5.1); Alkaline Phosphatase 104 U/L (38-126); Anion Gap 8 mmol/L (4-12); Aspartate Amino Transferase 25 U/L (14-36); Bilirubin,Total 0.9 mg/dL (0.2-1.3); Blood Urea Nitrogen 18 mg/dL (7-17); Calcium 9.6 mg/dL (8.4-10.2); Carbon Dioxide 26 mmol/L (22-30); Chloride 105 mmol/L (98-107); Estimated CRCL calculation 7 ml/min; Estimated Glomerular Filt Rate 5; Glucose 100 mg/dL (65-110); Magnesium 2.1 mg/dL (1.6-2.3); Potassium 3.9 mmol/L (3.4-5.0); Sodium 139 mmol/L (137-145); Total Protein 6.6 g/dL (6.3-8.2)
[2025-03-10 10:07] LABS: Add Urine Microscopic? YES; Appearance Urine Clear (Clear); Glucose Urine UA Trace mg/dL (Negative); Leukocyte Esterase Ur Negative LEU/UL (Negative); Need Manual Microscopic Reviewed; Nitrate Urine Negative (Negative); Specific Grav Ur 1.013 (1.001-1.035)
[2025-03-10] MEDS: cefTRIAXone 2 GM in SODIUM CHLORIDE 0.9% IV 100 ML 200 ML IVPB (11:15)
--- NOTE | 2025-03-10 11:30 | PC.NURSE ---
EDP aware of pt refusal of doxycycline at this time
[2025-03-10] MEDS: DOXYCYCLINE 100 MG/NS 100 ML 100 MG/100 ML BAG IVPB (12:16)
[2025-03-10 13:30] LABS: Hepatitis B Surface Antigen Negative (Negative)
--- NOTE | 2025-03-10 13:32 | PM.IMHP ---
H&P: HPI History of Present Illness Date/Time: 03/10/25 13:32 Chief Complaint: AMS Narrative: 64 y/o M with PMH of ESRD (HD on MWF) presents here with altered mental status. The patient presents here from her dialysis center for further evaluation of AMS. HPI obtained through chart review, patient poor historian and requesting not be contacted for collateral at time of interview. Per EMS, staff at her dialysis treatment center reported to them that the patient has been more confused over the last 3 to 4 treatment sessions. She was unable to complete her treatment today. She arrived to the ED A/Ox1. Denies shortness of breath, chest pain, cough, dysuria, fever, chills. reported to ED staff that when she has been confused previously it was secondary to a UTI. Initial VS at presentation: 98.1? F, HR 96, R 18, 170/80, and 100% on RA. ED workup showed: No leukocytosis, hemoglobin 10.8, normal coags, creatinine 8.64 and GFR 5, no significant electrolyte derangements, UA showed 3+ protein/trace glucose/trace ketones. Head CT showed no acute findings and atrophy/chronic white matter changes. CXR showed cardiomegaly with congestive leti an minimal interstitial thickening which is suggestive of cardiac decompensation and pulmonary edema and left basilar atelectasis versus pneumonia with possible effusion. Review of Systems Review of Systems: All systems reviewed & are unremarkable except as noted in HPI and below (Limited, altered) [facility] Past Medical History Medical History HLD (hyperlipidemia) HTN (hypertension) Gout ESRD on hemodialysis Social History Social History Smoking status: Unknown if ever smoked Spiritual care concerns: No Meds Home Medications and Allergies Home Medications ?Medication ?Instructions ?Recorded ?Confirmed ?Type allopurinol 100 mg tablet 200 mg PO DAILY 03/10/25 03/10/25 History amlodipine 10 mg tablet 10 mg PO DAILY 03/10/25 03/10/25 History aspirin 81 mg tablet,delayed 81 mg PO DAILY 03/10/25 03/10/25 History release atorvastatin 80 mg tablet 80 mg PO QPM 03/10/25 03/10/25 History fluticasone 250 mcg-salmeterol 50 1 inh inhalation Q12H 03/10/25 03/10/25 History mcg/dose blistr powdr for inhalation (Micheal Blackwoodub) montelukast 10 mg tablet 10 mg PO QPM 03/10/25 03/10/25 History Allergies Allergy/AdvReac Type Severity Reaction Status Date / Time Penicillins Allergy Unknown Verified 03/10/25 14:57 Vital Signs Vital Signs - 24 hr 03/10/25 06:18 03/10/25 07:30 03/10/25 07:36 Temperature 98.1 F Pulse Rate 96 90 86 Respiratory Rate 18 14 Blood Pressure 170/80 H Pulse Oximetry 100 100 Oxygen Delivery Room Air 03/10/25 09:39 03/10/25 11:13 03/10/25 12:16 Temperature Pulse Rate 97 100 103 H Respiratory Rate 21 H 24 H 16 Blood Pressure 169/85 H 167/98 H 163/81 H Pulse Oximetry 98 97 97 Oxygen Delivery 03/10/25 13:23 Temperature 97.5 F L Pulse Rate 110 H Respiratory Rate 24 H Blood Pressure 180/83 H Pulse Oximetry 97 Oxygen Delivery Exam Const: General: comfortable and no acute distress Other: , female, nontoxic appearance HENMT: Face/Nose/Sinus: Normal nares present Mouth: Yes moist mucous membranes Eyes: General: appearance normal, both eyes and all related structures Sclera: sclerae normal Pupils: Equal, round and reactive pupils present EOM: EOMs intact bilaterally Resp: Effort & Inspection: normal respiratory effort Auscultation: clear to auscultation bilaterally Cardio: Rate: regular rate Rhythm: regular rhythm Other: S1-S2 present without murmur, rub, ectopy GI: Other: Abdomen soft, nondistended, nontender. Normoactive bowel sounds in all quadrants. Skin: General skin exam: normal color and no rashes or lesions noted Wounds: no wounds Neuro: Speech: normal speech Motor exam (neuro): 5/5 motor strength present throughout Sensory Exam: normal sensation Other: A&O x1, somnolent Extrem: General: normal to inspection Other: + thrill and bruit to graft in the left upper extremity Psych: Mental Status: mental status grossly normal Affect: normal affect Other: Poor insight and judgment H&P: Results Labs Labs: Short CBC 03/10/25 Range/Units 09:17 WBC 7.1 (4.5-10.0) K/mm3 Hgb 10.8 L (12.0-15.0) g/dL Hct 35.3 L (37.0-47.0) % Plt Count 325 (150-375) k/mm3 BMP 03/10/25 09:17 Sodium 139 Potassium 3.9 Chloride 105 Carbon Dioxide 26 BUN 18 H Creatinine 8.64 H Glucose 100 Calcium 9.6 Liver Function 03/10/25 Range/Units 09:17 Total Bilirubin 0.9 (0.2-1.3) mg/dL AST 25 (14-36) U/L ALT 9 (6-35) U/L Alkaline Phosphatase 104 (38-126) U/L Albumin 3.5 (3.5-5.1) g/dL Urine 03/10/25 Range/Units 09:39 Urine Color Yellow (Yellow) Urine Appearance Clear (Clear) Urine pH 8.5 (5.0-9.0) Ur Specific [place] 1.013 (1.001-1.035) Urine Protein 3+ H (Negative) mg/dL Urine Glucose (UA) Trace H (Negative) mg/dL Assessment and Plan Assessment and plan (1) Altered mental status: Qualifiers: Altered mental status type: disorientation Qualified Code(s): R41.0 - Disorientation, unspecified Code(s): R41.82 - Altered mental status, unspecified Status: Acute Assessment and Plan: - Head CT: No intracranial hemorrhage, mass, or acute infarct. Atrophy and chronic white matter changes, as above. - UA not suggestive of UTI - possible PNA on CXR, see below. started on abx. - no significant electrolyte derangements, no hypoxia/supplemental O2 requirement, no significant anemia Suspect encephalopathy secondary to PNA. (2) Pneumonia: Qualifiers: Laterality: left Lung location: lower lobe of lung Pneumonia type: due to unspecified organism Qualified Code(s): J18.9 - Pneumonia, unspecified organism Code(s): J18.9 - Pneumonia, unspecified organism Status: Acute Assessment and Plan: - CXR: Cardiomegaly with congestive leti and minimal interstitial thickening which is suggestive of cardiac decompensation and pulmonary edema. Left basilar atelectasis versus pneumonia with possible. Clinical correlation and follow-up advised. - started on CAP tx: Ceftriaxone and doxycycline on 03/10 - no MRSA on file, check PCR - supportive care: Tylenol, Mucinex, Tessalon Perles - sputum culture if obtainable - no current supplemental O2 requirement (3) Pulmonary edema: Qualifiers: Chronicity: acute Qualified Code(s): J81.0 - Acute pulmonary edema Code(s): J81.1 - Chronic pulmonary edema Status: Acute Assessment and Plan: - no echo on file, ordered - CXR concerning for cardiomegaly with congestive leti and minimal interstitial thickening which is suggestive of cardiac decompensation and pulmonary edema. - fluid management via dialysis - monitor I&Os and daily weights - trend renal function (4) ESRD on hemodialysis: Code(s): N18.6 - End stage renal disease; Z99.2 - Dependence on renal dialysis Status: Chronic Assessment and Plan: - creatinine 8.64, BUN 18, GFR 5 - nephrology consulted for inpatient HD - dialysis: Mon, Wed, Fri - trend renal function - trend electrolytes, correct as needed (5) HTN (hypertension): Code(s): I10 - Essential (primary) hypertension Status: Acute Assessment and Plan: - chronic, currently 152/85 - continue home medications: Amlodipine - monitor Plan Diet: Renal GI Prophylaxis: NA DVT Prophylaxis: SCDs IV fluids: 1L bolus Lines/Tubes: peripheral IV Code Status: full code Quality VTE Prophylaxis VTE prophylaxis: mechanical ordered Hospitalist [facility] Advance Care Plan I have confirmed that the patient's Advanced Care Plan is present, code status is documented, or surrogate decision maker is listed in patient medical record.: Yes Medication Reconciliation I have utilized all available resources to obtain, update and review the patients current medications (includes all prescriptions, OTC, herbals, cannabis, and nutritional supplements).: Yes
--- NOTE | 2025-03-10 13:37 | PC.NURSE ---
this new grad attempted to call report to floor nurse asking if they had any questions. floor nurse, Patsy FLOWERS, said nope and hung up the phone.
[2025-03-10 13:47] LABS: Hepatitis B Surface Anti Res Negative
--- NOTE | 2025-03-10 14:05 | ADMGEN ---
This patient, Emily Ibrahim, was admitted to Medical Room 245-. Patient/family oriented to hospital policies and general routines including ID bracelet, bed and alarms, visiting hours, pain management, procedures, bathroom and other care routines, personal items, smoking policy, room service/diet, and visiting hours. Information on how to activate the Rapid Response Team has been discussed. Patient/Family are encouraged to report perceived risks to care and to ask questions if they do not understand what they are told or what they should do.
--- NOTE | 2025-03-10 14:20 | P.CONNP_ITS ---
Assessment and Plan Assessment and plan (1) End stage renal disease: Code(s): N18.6 - End stage renal disease Status: Chronic Assessment and Plan: * HD today * continue outpatient schedule of Mon/Mon/Monday * follow electrolytes, volume status, and clearance (2) Altered mental status: Qualifiers: Altered mental status type: disorientation Qualified Code(s): R41.0 - Disorientation, unspecified Code(s): R41.82 - Altered mental status, unspecified Status: Acute Assessment and Plan: * reportedly noted over the last 2 weeks * clinically worse on 03/10 with associated agitation/combative behavior * however, per outpatient dialysis center, her mentation seems to fluctuate at baseline... * CT of brain noted: * no intracranial hemorrhage, mass, or acute infarct * atrophy and chronic white matter changes * related to possible infection(?): * UA not suggestive of UTI * questionable pneumonia on CXR * empiric antibiotics * consider further imaging (i.e. MRI of brain) if not improvement * possible underlying dementia?? (3) Pulmonary edema: Qualifiers: Chronicity: acute Qualified Code(s): J81.0 - Acute pulmonary edema Code(s): J81.1 - Chronic pulmonary edema Status: Acute Assessment and Plan: * as noted by admission CXR: * cardiomegaly with congestive leti and minimal interstitial thickening which is suggestive of cardiac decompensation and pulmonary edema * however, no evidence of respiratory distress or hypoxia * Echo ordered/pending * fluid removal with dialysis as tolerated * follow respiratory status (4) Pneumonia: Qualifiers: Laterality: left Lung location: lower lobe of lung Pneumonia type: due to unspecified organism Qualified Code(s): J18.9 - Pneumonia, unspecified organism Code(s): J18.9 - Pneumonia, unspecified organism Status: Acute Assessment and Plan: * some suggestion by admission CXR * follow culture data * on antibiotics * on evidence of hypoxia * follow clinical symptoms (5) HTN (hypertension): Code(s): I10 - Essential (primary) hypertension Status: Acute Assessment and Plan: * mildly elevated at this itme * may improve with ultrafiltration/fluid removal with dialysis * resume home medications * may need further BP medications * follow trend of hemodynamics (6) Anemia: Code(s): D64.9 - Anemia, unspecified Status: Chronic Assessment and Plan: * due to ESRD * H/H at goal * hold Epogen for now * follow trend of H/H I will continue to follow the patient with you while she remains hospitalized and make further recommendations as deemed necessary. Thank you for allowing me to participate in the care of this patient. L History of Present Illness Reason for Consult Consult date: 03/10/25 Reason for consult: end stage renal disease Chief Complaint Chief complaint: ESRD on HD, AMS History of Present Illness Narrative: All of the history I have obtained is from review of the electronic medical record as well as discussion with the physicians and nurses involved in her care as well discussion with her outpatient dialysis center as the patient is unable to provide any history at this time due to her altered mental status. The patient is a 64 y/o female with a past medical history as outlined below who presented to [facility] ER from her outpatient dialysis unit due to worsening altered mental status. According to EMS, the staff at her dialysis unit reported to them that the patient has been more confused over the last 3 to 4 treatment sessions. She was unable to complete her treatment today more so because she was quite combative and uncooperative and would not allow the dialysis nurse/tech to cannulate her AV access. After discussion with her by phone, EMS was called by dialysis staff and she transferred to the ER for further assessment. On presentation to the ER, she was hemodynamically stable if not a bit hypertensive but afebrile. Routine testing noted no leukocytosis, hemoglobin 10.8, normal coagulation studies, chemistry consistent with her known history of ESRD without any critical electrolytes, and an UA showed 3+ protein/trace glucose/trace ketones. Her head CT showed no acute findings and atrophy/chronic white matter changes. Her CXR showed cardiomegaly with congestive leti an minimal interstitial thickening which is suggestive of cardiac decompensation and pulmonary edema and left basilar atelectasis versus pneumonia with possible effusion.Due to her combativeness and lack of cooperation, IV Ativan had to be given to the patient in the emergency room which did seem to calm/ relaxer. Given her persistent altered mentation, she was subsequently admitted to the hospital for further evaluation therapy. Renal consultation was requested due to her end-stage renal disease. The patient dialyzes on a Monday, Monday, Monday dialysis schedule at [facility]. As already may mentioned above, for last week and a half, the patient is mental status has been slowly deteriorating in association with more combative behavior. From my discussion with her outpatient dialysis unit, the patient's mentation does seem to fluctuated baseline but she is usually never combative or uncooperative with her dialysis treatments like she was on this day. In the past, worsening of her mental test test status is usually is associated with an infection, specifically a urinary tract infection. She is due for dialysis today. Currently, at the time my evaluation, she remains confused but relaxed/calm since IV Ativan administration. Review of Systems 2 Review of Systems: As per HPI. [facility] Past Medical History Medical History HLD (hyperlipidemia) HTN (hypertension) Gout ESRD on hemodialysis Social History Social History Smoking status: Unknown if ever smoked Spiritual care concerns: No Meds Home Medications and Allergies Home Medications ?Medication ?Instructions ?Recorded ?Confirmed ?Type allopurinol 100 mg tablet 200 mg PO DAILY 03/10/25 03/10/25 History amlodipine 10 mg tablet 10 mg PO DAILY 03/10/25 03/10/25 History aspirin 81 mg tablet,delayed 81 mg PO DAILY 03/10/25 03/10/25 History release atorvastatin 80 mg tablet 80 mg PO QPM 03/10/25 03/10/25 History fluticasone 250 mcg-salmeterol 50 1 inh inhalation Q12H 03/10/25 03/10/25 History mcg/dose blistr powdr for inhalation (Wixela Inhub) montelukast 10 mg tablet 10 mg PO QPM 03/10/25 03/10/25 History Allergies Allergy/AdvReac Type Severity Reaction Status Date / Time Penicillins Allergy Unknown Verified 03/10/25 14:57 Vital Signs Vital Signs Temp Pulse Resp BP Pulse Ox O2 Del Method 03/10/25 14:00 97.1 F L 106 H 24 H 163/76 H 96 03/10/25 13:23 97.5 F L 110 H 24 H 180/83 H 97 03/10/25 12:16 103 H 16 163/81 H 97 03/10/25 11:13 100 24 H 167/98 H 97 03/10/25 09:39 97 21 H 169/85 H 98 03/10/25 07:36 86 14 100 03/10/25 07:30 90 03/10/25 06:18 98.1 F 96 18 170/80 H 100 Room Air Exam 2 Narrative: GENERAL APPEARANCE: elderly female in no acute distress but somnolent HEENT: normocephalic, atraumatic, normal conjunctiva and sclera, nares patient NECK: no lymphadenopathy, thyromegaly, or JVD MOUTH: normal lips, teeth, and gums CARDIOVASCULAR: RRR, normal S1 and S2, no rub RESPIRATORY: coarse breath sounds ABDOMEN: soft, nontender, nondistended, positive bowel sounds present EXTREMITIES: no evidence of cyanosis, clubbing, or edema NEUROLOGICAL: unable to assess (somnolent following IV Ativan administration in ER) Results Lab Results 03/14/25 05:21 03/14/25 05:21 Lab results: Most recent lab results Calcium 9.6 mg/dL (8.4-10.2) 03/10/25 09:17 Magnesium 2.1 mg/dL (1.6-2.3) 03/10/25 09:17
--- NOTE | 2025-03-10 14:29 | PC.NURSE ---
Attempted to call son Nir whose number is listed in the chart to obtain consent for HD. It is not a working number. Pt not awake & snoring, unable to answer questions. Attempt to call Natividad to notify her of the new admissions & these issues. Call went to .
--- NOTE | 2025-03-10 18:17 | PC.NURSE ---
General note. Dialysis attempted today. No access to the L AVF. Tried to use the 15 ga needle to aceess x 2. Both were unsuccessful. Provider was notified.
[2025-03-10] MEDS: DOXYCYCLINE IV 100 MG in SODIUM CHLORIDE 0.9% IV 100 ML IVPB (20:46)
[2025-03-11] VITALS (22 sets, daily range): BP systolic 108–204; BP diastolic 52–105; PULSE 52–111; RESP 18–24; TEMP 36.1–37; O2SAT 94–100; BMI 44.0
[2025-03-11 05:29] LABS: Hematocrit 39.2 % (37.0-47.0); Hemoglobin 12.0 g/dL (12.0-15.0); Immature Granulocyte Percent A 0.4 % (0-0.5); Lymphocytes Absolute Auto 1.86 K/mm3 (0.9-3.2); Mean Corpuscular HGB Conc 30.6 g/dl (32-36); Mean Corpuscular Hemoglobin 26.8 pg (26-34); Mean Corpuscular Volume 87.7 fl (80-100); Nucleated Red Blood Cells Absolute Auto 0.000 K/mm3 (0.0-0.012); Nucleated Red Blood Cells Perc 0.0 % (0.0-0.2); Platelet Count Result 321 k/mm3 (150-375); Red Blood Count 4.47 M/mm3 (4.2-5.4); White Blood Count 7.7 K/mm3 (4.5-10.0)
[2025-03-11 05:51] LABS: Alanine Aminotransferase 7 U/L (6-35); Albumin Level 3.6 g/dL (3.5-5.1); Alkaline Phosphatase 105 U/L (38-126); Anion Gap 13 mmol/L (4-12); Aspartate Amino Transferase 28 U/L (14-36); Bilirubin,Total 0.8 mg/dL (0.2-1.3); Blood Urea Nitrogen 20 mg/dL (7-17); Calcium 9.7 mg/dL (8.4-10.2); Carbon Dioxide 22 mmol/L (22-30); Chloride 106 mmol/L (98-107); Estimated CRCL calculation 6 ml/min; Estimated Glomerular Filt Rate 4; Glucose 76 mg/dL (65-110); Magnesium 2.1 mg/dL (1.6-2.3); Potassium 3.7 mmol/L (3.4-5.0); Sodium 141 mmol/L (137-145); Total Protein 6.8 g/dL (6.3-8.2)
--- NOTE | 2025-03-11 07:57 | P.PNIM_ITS ---
Progress Note: A&P Assessment and Plan (1) Altered mental status: Qualifiers: Altered mental status type: disorientation Qualified Code(s): R41.0 - Disorientation, unspecified Code(s): R41.82 - Altered mental status, unspecified Status: Acute Assessment and Plan: - Head CT: No intracranial hemorrhage, mass, or acute infarct. Atrophy and chronic white matter changes, as above. - UA not suggestive of UTI - possible PNA on CXR, see below. started on abx- will continue - no significant electrolyte derangements, no hypoxia/supplemental O2 requirement, no significant anemia Suspect encephalopathy secondary to PNA. (2) Pneumonia: Qualifiers: Laterality: left Lung location: lower lobe of lung Pneumonia type: due to unspecified organism Qualified Code(s): J18.9 - Pneumonia, unspecified organism Code(s): J18.9 - Pneumonia, unspecified organism Status: Acute Assessment and Plan: - CXR: Cardiomegaly with congestive leti and minimal interstitial thickening which is suggestive of cardiac decompensation and pulmonary edema. Left basilar atelectasis versus pneumonia with possible. Clinical correlation and follow-up advised. - started on CAP tx: Ceftriaxone and doxycycline on 03/10 - no MRSA on file, check PCR - supportive care: Tylenol, Mucinex, Tessalon Perles - sputum culture if obtainable - no current supplemental O2 requirement -IS, ambulation pt is fall risk (3) Pulmonary edema: Qualifiers: Chronicity: acute Qualified Code(s): J81.0 - Acute pulmonary edema Code(s): J81.1 - Chronic pulmonary edema Status: Acute Assessment and Plan: - no echo on file, ordered - CXR concerning for cardiomegaly with congestive leti and minimal interstitial thickening which is suggestive of cardiac decompensation and pulmonary edema. - fluid management via dialysis - monitor I&Os and daily weights - trend renal function 03/10 echo: Summary 1. Complete two-dimensional, color flow and Doppler transthoracic echocardiogram is performed. 2. Technically difficult study and patient refuse to complete full study ECHO. 3. In the available views, there is normal left ventricular size with hyperdynamic systolic function. 4. The right ventricle is normal in size and systolic function. 5. There are no significant valvular abnormalities. Left Ventricle The left ventricle is normal in size with hyperdynamic systolic function. There is concentric left ventricular remodeling. The left ventricular ejection fraction is visually estimated to be greater than 70% (4) ESRD on hemodialysis: Code(s): N18.6 - End stage renal disease; Z99.2 - Dependence on renal dialysis Status: Chronic Assessment and Plan: - creatinine 8.64, BUN 18, GFR 5 - nephrology consulted for inpatient HD - dialysis: Mon, Wed, Fri - trend renal function - trend electrolytes, correct as needed (5) HTN (hypertension): Code(s): I10 - Essential (primary) hypertension Status: Acute Assessment and Plan: - chronic, currently 152/85 - continue home medications: Amlodipine - monitor Plan Diet: Renal GI Prophylaxis: NA DVT Prophylaxis: SCDs IV fluids: 1L bolus Lines/Tubes: peripheral IV Code Status: full code Time Spent With Patient Time with patient: 25 - 35 minutes Subjective Date/time seen: 03/11/25 07:57 Interval history: 64 y/o M with PMH of ESRD (HD on MWF) presents here with altered mental status. The patient admitted from dialysis center for further evaluation of AMS. She was unable to complete her treatment, increased confusion for the last few treatments. in ed: 98.1? F, HR 96, R 18, 170/80, and 100% on RA. ED workup showed: No leukocytosis, hemoglobin 10.8, normal coags, creatinine 8.64 and GFR 5, no significant electrolyte derangements, UA showed 3+ protein/trace glucose/trace ketones. Head CT showed no acute findings and atrophy/chronic white matter changes. CXR showed cardiomegaly with congestive leti an minimal interstitial thickening which is suggestive of cardiac decompensation and pulmonary edema and left basilar atelectasis versus pneumonia with possible effusion. 03/11- pt is seen and examined. Nephrology following. Dialysis today. Review of Systems Review of Systems: All systems reviewed & are unremarkable except as noted in HPI and below (Limited, altered) Exam Narrative: A/Ox1. +thrill and bruit to graft in the RUE. Const: General: comfortable and no acute distress Other: , female, nontoxic appearance HENMT: Face/Nose/Sinus: Normal nares present Mouth: Yes moist mucous membranes Eyes: General: appearance normal, both eyes and all related structures Sclera: sclerae normal Pupils: Equal, round and reactive pupils present EOM: EOMs intact bilaterally Resp: Effort & Inspection: normal respiratory effort Auscultation: clear to auscultation bilaterally Cardio: Rate: regular rate Rhythm: regular rhythm Other: S1-S2 present without murmur, rub, ectopy GI: Other: Abdomen soft, nondistended, nontender. Normoactive bowel sounds in all quadrants. Skin: General skin exam: normal color and no rashes or lesions noted Wounds: no wounds Neuro: Cranial nerves: Yes Equal, round and reactive pupils present Speech: normal speech Motor exam (neuro): 5/5 motor strength present throughout Sensory Exam: normal sensation Other: A&O x1, somnolent Extrem: General: normal to inspection Other: + thrill and bruit to graft in the left upper extremity Psych: Mental Status: mental status grossly normal Affect: normal affect Other: Poor insight and judgment Objective Data Vital Signs Vital Signs: Vital Signs - 24 hr 03/10/25 09:39 03/10/25 11:13 03/10/25 12:16 Temperature Pulse Rate 97 100 103 H Respiratory Rate 21 H 24 H 16 Blood Pressure 169/85 H 167/98 H 163/81 H Pulse Oximetry 98 97 97 Oxygen Delivery 03/10/25 13:23 03/10/25 14:00 03/10/25 20:00 Temperature 97.5 F L 97.1 F L Pulse Rate 110 H 106 H Respiratory Rate 24 H 24 H Blood Pressure 180/83 H 163/76 H Pulse Oximetry 97 96 Oxygen Delivery Room Air 03/10/25 21:01 03/11/25 05:39 Temperature 97.3 F L 97.3 F L Pulse Rate 110 H 107 H Respiratory Rate 20 24 H Blood Pressure 152/85 H 184/78 H Pulse Oximetry 99 100 Oxygen Delivery Intake/Output Intake/Output: Intake & Output 03/08/25 03/09/25 03/10/25 03/11/25 23:59 23:59 23:59 23:59 Intake Total 200 150 Output Total 75 200 Balance 125 -50 Meds/Results Medications: Active Medications Generic Name Dose Route Start Last Admin Trade Name Freq PRN Reason Stop Dose Admin Acetaminophen 650 mg 03/10/25 13:39 Acetaminophen 325 Mg Tablet PO Q6H PRN Mild Pain (1-3) or Fever Allopurinol 200 mg 03/11/25 09:00 Allopurinol 100 Mg Tablet PO DAILY [facility] Amlodipine Besylate 10 mg 03/11/25 09:00 Amlodipine Besylate 10 Mg Tablet PO DAILY [facility] Aspirin 81 mg 03/11/25 09:00 Aspirin 81 Mg Enteric Tablet PO DAILY [facility] Atorvastatin Calcium 80 mg 03/11/25 21:00 Atorvastatin 40 Mg Tablet PO HS [facility] Benzonatate 100 mg 03/10/25 13:39 Benzonatate 100 Mg Capsule PO TID PRN Cough Guaifenesin 600 mg 03/10/25 13:39 Guaifenesin 12 Hr 600 Mg Tabcr PO Q12HR PRN Congestion Doxycycline Hyclate 100 mg/ 100 mls @ 100 mls/hr 03/10/25 21:00 03/10/25 20:46 Sodium Chloride IVPB 100 mls/hr Q12H ADDISON Administration Albumin Human 50 mls @ 999 mls/hr 03/10/25 12:49 Albutein IVPB 04/09/25 12:48 Q10M PRN HYPOTENSION Montelukast Sodium 10 mg 03/11/25 21:00 Montelukast Sodium 10 Mg Tablet PO HS [facility] Perflutren Lipid Microsphere 0 ml 03/10/25 13:38 Perflutren Lipid Microspheres 1.5 Ml Vial Diluted To 10 Ml Total Volume IV PUSH 03/13/25 13:38 ONCE PRN adequate visualization Protocol Fluticasone/Salmeterol 1 puff 03/11/25 08:00 Fluticasone/Salmeterol 115-21 Mcg Inhaler 1 Puff INHALATION Q12HRT [facility] Radiology Results: ITS Impressions Head CT 03/10/25 07:36 Impression: No intracranial hemorrhage, mass, or acute infarct. Atrophy and chronic white matter changes, as above. Chest X-Ray 03/10/25 10:24 IMPRESSION: Cardiomegaly with congestive leti and minimal interstitial thickening which is suggestive of cardiac decompensation and pulmonary edema. Left basilar atelectasis versus pneumonia with possible. Clinical correlation and follow-up advised. Labs Labs: Laboratory Results - last 24 hr 03/10/25 03/10/25 03/11/25 09:17 09:39 04:49 WBC 7.1 7.7 RBC 4.08 L 4.47 Hgb 10.8 L 12.0 Hct 35.3 L 39.2 MCV 86.5 87.7 MCH 26.5 26.8 MCHC 30.6 L 30.6 L RDW 17.1 H 17.1 H Plt Count 325 321 MPV 9.6 9.3 Immature Gran % (Auto) 0.3 0.4 Neut % (Auto) 51.3 57.0 Lymph % (Auto) 28.3 24.3 Sully % (Auto) 15.1 H 13.1 H Eos % (Auto) 3.9 3.9 Baso % (Auto) 1.1 1.3 H Lymph # (Auto) 2.01 1.86 Sully # (Auto) 1.1 H 1.0 H Eos # (Auto) 0.3 0.3 Baso # (Auto) 0.1 0.1 Abs Immat Gran (auto) 0.02 0.03 Absolute Neuts (auto) 3.6 4.4 Absolute Nucleated RBC 0.000 0.000 Nucleated RBC % 0.0 0.0 PT 13.1 INR 1.0 APTT 27.3 Sodium 139 141 Potassium 3.9 3.7 Chloride 105 106 Carbon Dioxide 26 22 Anion Gap 8 13 H BUN 18 H 20 H Creatinine 8.64 H 9.41 H Estim Creat Clear Calc 7 6 Estimated GFR 5 L 4 L Glucose 100 76 Lactic Acid 1.2 Calcium 9.6 9.7 Phosphorus 4.7 H Magnesium 2.1 2.1 Total Bilirubin 0.9 0.8 AST 25 28 ALT 9 7 Alkaline Phosphatase 104 105 Total Protein 6.6 6.8 Albumin 3.5 3.6 Urine Color Yellow Urine Appearance Clear Urine pH 8.5 Ur Specific [place] 1.013 Urine Protein 3+ H Urine Glucose (UA) Trace H Urine Ketones Trace H Ur Blood (Man) Negative Urine Nitrate Negative Urine Bilirubin Negative Urine Urobilinogen 1.0 Add Ur Microanalysis Reviewed Leukocyte Esterase Rfl Negative Urine RBC 0-2 Urine WBC 0-5 Ur Squamous Epith Cells Occasional Urine Bacteria None seen Urine Casts 3-5 Hep Bs Antigen Negative Hep Bs Antibody Negative Quality VTE Prophylaxis VTE prophylaxis: mechanical ordered
[2025-03-11] MEDS: FLUTICASONE/SALMETEROL 115-21 MCG INHALER 1 PUFF 2 PUFF INHALATION ×2 (08:09→20:41)
[2025-03-11] MEDS: SODIUM CHLORIDE 0.9% IV 1,000 ML 999 ML IV CONT (08:47)
[2025-03-11 09:54] LABS: MRSA (PCR) NOT DETECTED (NOT DETECTE)
[2025-03-11] MEDS: ACETAMINOPHEN 325 MG TABLET 650 MG PO (10:13)
--- NOTE | 2025-03-11 10:59 | P.PNNP_ITS ---
Progress Note: A&P Assessment and Plan (1) End stage renal disease: Code(s): N18.6 - End stage renal disease Status: Chronic Assessment and Plan: * HD today (since unable to get treatment yesterday) * likely plan HD tomorrow to resume outpatient schedule of Mon/Mon/Monday * follow electrolytes, volume status, and clearance (2) Altered mental status: Qualifiers: Altered mental status type: disorientation Qualified Code(s): R41.0 - Disorientation, unspecified Code(s): R41.82 - Altered mental status, unspecified Status: Acute Assessment and Plan: * reportedly noted over the last 2 weeks * clinically worse on 03/10 with associated agitation/combative behavior * however, per outpatient dialysis center, her mentation seems to fluctuate at baseline... * CT of brain noted: * no intracranial hemorrhage, mass, or acute infarct * atrophy and chronic white matter changes * related to possible infection(?): * UA not suggestive of UTI * questionable pneumonia on CXR * empiric antibiotics * consider further imaging (i.e. MRI of brain) if not improvement * possible underlying dementia?? (3) Pulmonary edema: Qualifiers: Chronicity: acute Qualified Code(s): J81.0 - Acute pulmonary edema Code(s): J81.1 - Chronic pulmonary edema Status: Acute Assessment and Plan: * as noted by admission CXR: * cardiomegaly with congestive leti and minimal interstitial thickening which is suggestive of cardiac decompensation and pulmonary edema * however, no evidence of respiratory distress or hypoxia * Echo results noted: * there is normal left ventricular size with hyperdynamic systolic function * left ventricular ejection fraction is visually estimated to be greater than 70% * right ventricle is normal in size and systolic function * no significant valvular abnormalities * fluid removal with dialysis as tolerated * follow respiratory status (4) Pneumonia: Qualifiers: Laterality: left Lung location: lower lobe of lung Pneumonia type: due to unspecified organism Qualified Code(s): J18.9 - Pneumonia, unspecified organism Code(s): J18.9 - Pneumonia, unspecified organism Status: Acute Assessment and Plan: * some suggestion by admission CXR * follow culture data * on antibiotics * on evidence of hypoxia * follow clinical symptoms (5) HTN (hypertension): Code(s): I10 - Essential (primary) hypertension Status: Acute Assessment and Plan: * elevated at this time * may improve with ultrafiltration/fluid removal with dialysis today * resume home medications * may need further BP medications * follow trend of hemodynamics (6) Anemia: Code(s): D64.9 - Anemia, unspecified Status: Chronic Assessment and Plan: * due to ESRD * H/H supratherapeutic at this time * hold Epogen for now * follow trend of H/H Will continue to follow. L Subjective Date/time seen: 03/11/25 09:47 Interval history: Follow-up for end stage renal disease on hemodialysis. Tolerating dialysis treatment at the time of my visit (seen on HD at 9:30am); unable to get dialysis yesterday as dialysis nurse had difficulty cannulating her AV access (no such issues today per HD nurse today); still remains confused when seen but awake/alert; no issues/events overnight or earlier this morning. Exam 2 Narrative: General: elderly female in NAD Heart: normal S1 and S2; no rub Lungs: coarse breath sounds; decreased at bases Abdomen: soft, nontender, nondistended, positive bowel sounds Extremities: no cyanosis or clubbing; no edema Skin: warm and dry Objective Data Vital Signs Vital Signs: Vital Signs Temp Pulse Resp BP Pulse Ox O2 Del Method 03/11/25 09:45 102 H 175/52 H 03/11/25 09:30 102 H 193/96 H 03/11/25 09:15 101 H 190/100 H 03/11/25 09:06 104 H 204/99 H 03/11/25 08:47 98.4 F 102 H 18 197/97 H 03/11/25 08:10 94 Room Air 03/11/25 07:45 Room Air 03/11/25 05:39 97.3 F L 107 H 24 H 184/78 H 100 03/10/25 21:01 97.3 F L 110 H 20 152/85 H 99 03/10/25 20:00 Room Air 03/10/25 14:00 97.1 F L 106 H 24 H 163/76 H 96 03/10/25 13:23 97.5 F L 110 H 24 H 180/83 H 97 03/10/25 12:16 103 H 16 163/81 H 97 Intake/Output Intake/Output: Intake & Output 07/1203/09/25 03/10/25 03/11/25 23:59 23:59 23:59 23:59 Intake Total 200 150 Output Total 75 200 Balance 125 -50 Meds/Results Medications: Active Medications Generic Name Dose Route Start Last Admin Trade Name Freq PRN Reason Stop Dose Admin Acetaminophen 650 mg 03/10/25 13:39 03/11/25 10:13 Acetaminophen 325 Mg Tablet PO 650 mg Q6H PRN Administration Mild Pain (1-3) or Fever Allopurinol 200 mg 03/11/25 09:00 Allopurinol 100 Mg Tablet PO DAILY [facility] Amlodipine Besylate 10 mg 03/11/25 09:00 Amlodipine Besylate 10 Mg Tablet PO DAILY [facility] Aspirin 81 mg 03/11/25 09:00 Aspirin 81 Mg Enteric Tablet PO DAILY [facility] Atorvastatin Calcium 80 mg 03/11/25 21:00 Atorvastatin 40 Mg Tablet PO HS [facility] Benzonatate 100 mg 03/10/25 13:39 Benzonatate 100 Mg Capsule PO TID PRN Cough Guaifenesin 600 mg 03/10/25 13:39 Guaifenesin 12 Hr 600 Mg Tabcr PO Q12HR PRN Congestion Doxycycline Hyclate 100 mg/ 100 mls @ 100 mls/hr 03/10/25 21:00 03/10/25 20:46 Sodium Chloride IVPB 100 mls/hr Q12H ADDISON Administration Albumin Human 50 mls @ 999 mls/hr 03/10/25 12:49 Albutein IVPB 04/09/25 12:48 Q10M PRN HYPOTENSION Montelukast Sodium 10 mg 03/11/25 21:00 Montelukast Sodium 10 Mg Tablet PO HS [facility] Perflutren Lipid Microsphere 0 ml 03/10/25 13:38 Perflutren Lipid Microspheres 1.5 Ml Vial Diluted To 10 Ml Total Volume IV PUSH 03/13/25 13:38 ONCE PRN adequate visualization Protocol Fluticasone/Salmeterol 2 puff 03/11/25 08:00 03/11/25 08:09 Fluticasone/Salmeterol 115-21 Mcg Inhaler 1 Puff INHALATION 2 puff Q12HRT ADDISON Administration Radiology Results: ITS Impressions Head CT 03/10/25 07:36 Impression: No intracranial hemorrhage, mass, or acute infarct. Atrophy and chronic white matter changes, as above. Chest X-Ray 03/10/25 10:24 IMPRESSION: Cardiomegaly with congestive leti and minimal interstitial thickening which is suggestive of cardiac decompensation and pulmonary edema. Left basilar atelectasis versus pneumonia with possible. Clinical correlation and follow-up advised. Labs Labs: Laboratory Tests 03/11/25 04:49 03/11/25 04:49 Calcium 9.7 Phosphorus 4.7 H Magnesium 2.1 Total Bilirubin 0.8 AST 28 ALT 7 Alkaline Phosphatase 105 Total Protein 6.8 Albumin 3.6
[2025-03-11] MEDS: ASPIRIN 81 MG ENTERIC TABLET PO (13:16)
[2025-03-11] MEDS: DOXYCYCLINE IV 100 MG in SODIUM CHLORIDE 0.9% IV 100 ML IVPB ×2 (13:16→20:33)
[2025-03-11] MEDS: MONTELUKAST SODIUM 10 MG TABLET PO (20:20)
[2025-03-11] MEDS: ATORVASTATIN 40 MG TABLET 80 MG PO (20:20)
[2025-03-12] VITALS (18 sets, daily range): BP systolic 110–166; BP diastolic 64–92; PULSE 62–727; RESP 17–20; TEMP 35.9–37; O2SAT 90–100
--- NOTE | 2025-03-12 07:24 | PM.IMPN ---
Progress Note: A&P Assessment and Plan (1) Altered mental status: Qualifiers: Altered mental status type: disorientation Qualified Code(s): R41.0 - Disorientation, unspecified Code(s): R41.82 - Altered mental status, unspecified Status: Acute Assessment and Plan: - Head CT: No intracranial hemorrhage, mass, or acute infarct. Atrophy and chronic white matter changes, as above. - UA not suggestive of UTI - possible PNA on CXR, see below. started on abx- will continue - no significant electrolyte derangements, no hypoxia/supplemental O2 requirement, no significant anemia Suspect encephalopathy secondary to PNA. 03/12 - somewhat better today but still confused. will order ua (pt still makes urine) to r/o uti BC so far negative no worsening resp symptoms-so low suspicion for pneumonia (2) Pneumonia: Qualifiers: Laterality: left Lung location: lower lobe of lung Pneumonia type: due to unspecified organism Qualified Code(s): J18.9 - Pneumonia, unspecified organism Code(s): J18.9 - Pneumonia, unspecified organism Status: Acute Assessment and Plan: - CXR: Cardiomegaly with congestive leti and minimal interstitial thickening which is suggestive of cardiac decompensation and pulmonary edema. Left basilar atelectasis versus pneumonia with possible. Clinical correlation and follow-up advised. - started on CAP tx: Ceftriaxone and doxycycline on 03/10 - no MRSA on file, check PCR - supportive care: Tylenol, Mucinex, Tessalon Perles - sputum culture if obtainable - no current supplemental O2 requirement -IS, ambulation pt is fall risk (3) Pulmonary edema: Qualifiers: Chronicity: acute Qualified Code(s): J81.0 - Acute pulmonary edema Code(s): J81.1 - Chronic pulmonary edema Status: Acute Assessment and Plan: - no echo on file, ordered - CXR concerning for cardiomegaly with congestive leti and minimal interstitial thickening which is suggestive of cardiac decompensation and pulmonary edema. - fluid management via dialysis - monitor I&Os and daily weights - trend renal function 03/10 echo: Summary 1. Complete two-dimensional, color flow and Doppler transthoracic echocardiogram is performed. 2. Technically difficult study and patient refuse to complete full study ECHO. 3. In the available views, there is normal left ventricular size with hyperdynamic systolic function. 4. The right ventricle is normal in size and systolic function. 5. There are no significant valvular abnormalities. Left Ventricle The left ventricle is normal in size with hyperdynamic systolic function. There is concentric left ventricular remodeling. The left ventricular ejection fraction is visually estimated to be greater than 70% (4) ESRD on hemodialysis: Code(s): N18.6 - End stage renal disease; Z99.2 - Dependence on renal dialysis Status: Chronic Assessment and Plan: - creatinine 8.64, BUN 18, GFR 5 - nephrology consulted for inpatient HD - dialysis: Mon, Wed, Fri - trend renal function - trend electrolytes, correct as needed 03/12 cr imporved, able to complete dialysis tx and tolerated it well. (5) HTN (hypertension): Code(s): I10 - Essential (primary) hypertension Status: Acute Assessment and Plan: - chronic, currently 152/85 - continue home medications: Amlodipine - monitor Plan Diet: Renal GI Prophylaxis: NA DVT Prophylaxis: SCDs IV fluids: 1L bolus Lines/Tubes: peripheral IV Code Status: full code Time Spent With Patient Time with patient: 25 - 35 minutes Subjective Date/time seen: 03/12/25 07:24 Interval history: 64 y/o M with PMH of ESRD (HD on MWF) presents here with altered mental status. The patient admitted from dialysis center for further evaluation of AMS. She was unable to complete her treatment, increased confusion for the last few treatments. Pt still confused but awake/alert. scheduled for dialysis today. Became anxious during dialysis-was given ativan to help relax. Seen now and she is calm and resting with eyes closed. Review of Systems Review of Systems: All systems reviewed & are unremarkable except as noted in HPI and below (Limited, altered) Exam Narrative: A/Ox1. +thrill and bruit to graft in the RUE. Const: General: comfortable and no acute distress Other: , female, nontoxic appearance HENMT: Face/Nose/Sinus: Normal nares present Mouth: Yes moist mucous membranes Eyes: General: appearance normal, both eyes and all related structures Sclera: sclerae normal Pupils: Equal, round and reactive pupils present EOM: EOMs intact bilaterally Resp: Effort & Inspection: normal respiratory effort Auscultation: clear to auscultation bilaterally Cardio: Rate: regular rate Rhythm: regular rhythm Other: S1-S2 present without murmur, rub, ectopy GI: Other: Abdomen soft, nondistended, nontender. Normoactive bowel sounds in all quadrants. Skin: General skin exam: normal color and no rashes or lesions noted Wounds: no wounds Neuro: Cranial nerves: Yes Equal, round and reactive pupils present Speech: normal speech Motor exam (neuro): 5/5 motor strength present throughout Sensory Exam: normal sensation Other: A&O x1, somnolent Extrem: General: normal to inspection Other: + thrill and bruit to graft in the left upper extremity Psych: Mental Status: mental status grossly normal Affect: normal affect Other: Poor insight and judgment Objective Data Vital Signs Vital Signs: Vital Signs - 24 hr 03/11/25 07:45 03/11/25 08:10 03/11/25 08:47 Temperature 98.4 F Pulse Rate 102 H Respiratory Rate 18 Blood Pressure 197/97 H Pulse Oximetry 94 Oxygen Delivery Room Air Room Air 03/11/25 09:06 03/11/25 09:15 03/11/25 09:30 Temperature Pulse Rate 104 H 101 H 102 H Respiratory Rate Blood Pressure 204/99 H 190/100 H 193/96 H Pulse Oximetry Oxygen Delivery 03/11/25 09:45 03/11/25 10:00 03/11/25 10:15 Temperature Pulse Rate 102 H 107 H 105 H Respiratory Rate Blood Pressure 175/52 H 159/99 H 155/105 H Pulse Oximetry Oxygen Delivery 03/11/25 10:30 03/11/25 10:45 03/11/25 11:00 Temperature Pulse Rate 52 L 111 H 82 Respiratory Rate Blood Pressure 149/95 H 172/85 H 115/78 Pulse Oximetry Oxygen Delivery 03/11/25 11:15 03/11/25 11:30 03/11/25 11:45 Temperature Pulse Rate 105 H 107 H 103 H Respiratory Rate Blood Pressure 124/84 160/80 H 151/87 H Pulse Oximetry Oxygen Delivery 03/11/25 12:00 03/11/25 12:15 03/11/25 12:36 Temperature Pulse Rate 104 H 105 H 103 H Respiratory Rate Blood Pressure 174/85 H 178/71 H 172/84 H Pulse Oximetry Oxygen Delivery 03/11/25 12:45 03/11/25 13:11 03/11/25 20:43 Temperature 98.0 F 96.9 F L Pulse Rate 103 H 99 Respiratory Rate 18 18 Blood Pressure 108/58 L 153/94 H Pulse Oximetry 98 94 Oxygen Delivery Room Air 03/11/25 20:45 03/11/25 20:59 03/12/25 06:00 Temperature 97.0 F L 96.7 F L Pulse Rate 109 H 96 Respiratory Rate 20 20 Blood Pressure 135/69 132/71 Pulse Oximetry 100 90 Oxygen Delivery Room Air Intake/Output Intake/Output: Intake & Output 03/09/25 03/10/25 03/11/25 03/12/25 23:59 23:59 23:59 23:59 Intake Total 300 810 Output Total 75 2400 Balance 225 -1590 Meds/Results Medications: Active Medications Generic Name Dose Route Start Last Admin Trade Name Freq PRN Reason Stop Dose Admin Acetaminophen 650 mg 03/10/25 13:39 03/11/25 10:13 Acetaminophen 325 Mg Tablet PO 650 mg Q6H PRN Administration Mild Pain (1-3) or Fever Allopurinol 200 mg 03/11/25 09:00 03/11/25 13:17 Allopurinol 100 Mg Tablet PO 200 mg DAILY ADDISON Administration Amlodipine Besylate 10 mg 03/11/25 09:00 03/11/25 13:17 Amlodipine Besylate 10 Mg Tablet PO 10 mg DAILY ADDISON Administration Aspirin 81 mg 03/11/25 09:00 03/11/25 13:16 Aspirin 81 Mg Enteric Tablet PO 81 mg DAILY ADDISON Administration Atorvastatin Calcium 80 mg 03/11/25 21:00 03/11/25 20:20 Atorvastatin 40 Mg Tablet PO 80 mg HS ADDISON Administration Benzonatate 100 mg 03/10/25 13:39 Benzonatate 100 Mg Capsule PO TID PRN Cough Guaifenesin 600 mg 03/10/25 13:39 Guaifenesin 12 Hr 600 Mg Tabcr PO Q12HR PRN Congestion Doxycycline Hyclate 100 mg/ 100 mls @ 100 mls/hr 03/10/25 21:00 03/11/25 21:33 Sodium Chloride IVPB Infused Q12H ADDISON Infusion Albumin Human 50 mls @ 999 mls/hr 03/10/25 12:49 Albutein IVPB 04/09/25 12:48 Q10M PRN HYPOTENSION Sodium Chloride 1,000 mls @ 999 mls/hr 03/12/25 06:26 Normal Saline Iv IV CONT 03/12/25 07:26 .Q1H1M ONE Montelukast Sodium 10 mg 03/11/25 21:00 03/11/25 20:20 Montelukast Sodium 10 Mg Tablet PO 10 mg HS ADDISON Administration Perflutren Lipid Microsphere 0 ml 03/10/25 13:38 Perflutren Lipid Microspheres 1.5 Ml Vial Diluted To 10 Ml Total Volume IV PUSH 03/13/25 13:38 ONCE PRN adequate visualization Protocol Fluticasone/Salmeterol 2 puff 03/11/25 08:00 03/11/25 20:41 Fluticasone/Salmeterol 115-21 Mcg Inhaler 1 Puff INHALATION 2 puff Q12HRT ADDISON Administration Radiology Results: ITS Impressions Head CT 03/10/25 07:36 Impression: No intracranial hemorrhage, mass, or acute infarct. Atrophy and chronic white matter changes, as above. Chest X-Ray 03/10/25 10:24 IMPRESSION: Cardiomegaly with congestive leti and minimal interstitial thickening which is suggestive of cardiac decompensation and pulmonary edema. Left basilar atelectasis versus pneumonia with possible. Clinical correlation and follow-up advised. Labs Labs: Laboratory Results - last 24 hr 03/11/25 08:29 Nasal MRSA (PCR) Not detected Quality VTE Prophylaxis VTE prophylaxis: mechanical ordered
[2025-03-12 07:25] LABS: Hematocrit 41.1 % (37.0-47.0); Hemoglobin 12.7 g/dL (12.0-15.0); Immature Granulocyte Percent A 0.2 % (0-0.5); Lymphocytes Absolute Auto 1.94 K/mm3 (0.9-3.2); Mean Corpuscular HGB Conc 30.9 g/dl (32-36); Mean Corpuscular Hemoglobin 26.5 pg (26-34); Mean Corpuscular Volume 85.8 fl (80-100); Nucleated Red Blood Cells Absolute Auto 0.000 K/mm3 (0.0-0.012); Nucleated Red Blood Cells Perc 0.0 % (0.0-0.2); Platelet Count Result 331 k/mm3 (150-375); Red Blood Count 4.79 M/mm3 (4.2-5.4); White Blood Count 8.3 K/mm3 (4.5-10.0)
[2025-03-12] MEDS: FLUTICASONE/SALMETEROL 115-21 MCG INHALER 1 PUFF 2 PUFF INHALATION ×2 (07:36→22:01)
[2025-03-12 07:55] LABS: Albumin Level 3.7 g/dL (3.5-5.1); Anion Gap 14 mmol/L (4-12); Blood Urea Nitrogen 14 mg/dL (7-17); Calcium 10.3 mg/dL (8.4-10.2); Carbon Dioxide 22 mmol/L (22-30); Chloride 103 mmol/L (98-107); Estimated CRCL calculation 8 ml/min; Estimated Glomerular Filt Rate 6; Glucose 98 mg/dL (65-110); Potassium 4.2 mmol/L (3.4-5.0); Sodium 139 mmol/L (137-145)
--- NOTE | 2025-03-12 08:33 | P.CDI_ITS ---
CDI Query Clarification Request Encephalopathy has been documented. Please clarify type of encephalopathy: * Metabolic * Toxic * Hepatic * Hypertensive * Other * Unable to Determine The medical chart reflects the following: (1) Altered mental status: Qualifiers: Altered mental status type: disorientation Qualified Code(s): R41.0 - Disorientation, unspecified Code(s): R41.82 - Altered mental status, unspecified Status: Acute Assessment and Plan: - Head CT: No intracranial hemorrhage, mass, or acute infarct. Atrophy and chronic white matter changes, as above. - UA not suggestive of UTI - possible PNA on CXR, see below. started on abx- will continue - no significant electrolyte derangements, no hypoxia/supplemental O2 requirement, no significant anemia Suspect encephalopathy secondary to PNA. <Cassidy Todd RN - Last Filed: 03/12/25 08:34> Clarified Diagnosis Clarified Diagnosis: unable to determine <Crystal Russell APRN - Last Filed: 03/12/25 11:58>
--- NOTE | 2025-03-12 08:35 | P.CDI_ITS ---
CDI Query Clarification Request Patient with a BMI of 44.0 please provide a diagnosis to accompany this finding: * Overweight * Obesity * Morbid Obesity * Other/Unknown <Cassidy Todd RN - Last Filed: 03/12/25 08:36> Clarified Diagnosis Clarified Diagnosis: morbid <Crystal Russell APRN - Last Filed: 03/12/25 11:58>
--- NOTE | 2025-03-12 08:45 | PC.NURSE ---
pt combative this mornig with care, she did raise her hand to the [employer], we are taking her to dialysis for scheduled treatment
[2025-03-12] MEDS: LORazepam INJ (*CRX) 2 MG/ML VIAL 0.5 MG IV PUSH (09:10)
--- NOTE | 2025-03-12 12:20 | P.PNNP_ITS ---
Progress Note: A&P Assessment and Plan (1) End stage renal disease: Code(s): N18.6 - End stage renal disease Status: Chronic Assessment and Plan: * HD today * continue outpatient schedule of Mon/Mon/Monday * follow electrolytes, volume status, and clearance (2) Altered mental status: Qualifiers: Altered mental status type: disorientation Qualified Code(s): R41.0 - Disorientation, unspecified Code(s): R41.82 - Altered mental status, unspecified Status: Acute Assessment and Plan: * reportedly noted over the last 2 weeks * clinically worse on 03/10 with associated agitation/combative behavior * however, per outpatient dialysis center, her mentation seems to fluctuate even at baseline (but usually not combative/uncooperative) * CT of brain noted: * no intracranial hemorrhage, mass, or acute infarct * atrophy and chronic white matter changes * related to possible infection(?): * admission UA not suggestive of UTI * questionable pneumonia on CXR * empiric antibiotics * consider further imaging (i.e. MRI of brain) if not improvement * benefit to Neurology consultation? * possible underlying dementia? (3) Pulmonary edema: Qualifiers: Chronicity: acute Qualified Code(s): J81.0 - Acute pulmonary edema Code(s): J81.1 - Chronic pulmonary edema Status: Acute Assessment and Plan: * as noted by admission CXR: * cardiomegaly with congestive leti and minimal interstitial thickening which is suggestive of cardiac decompensation and pulmonary edema * however, no evidence of respiratory distress or hypoxia * Echo results noted: * there is normal left ventricular size with hyperdynamic systolic function * left ventricular ejection fraction is visually estimated to be greater than 70% * right ventricle is normal in size and systolic function * no significant valvular abnormalities * fluid removal with dialysis as tolerated * follow respiratory status (4) Pneumonia: Qualifiers: Laterality: left Lung location: lower lobe of lung Pneumonia type: due to unspecified organism Qualified Code(s): J18.9 - Pneumonia, unspecified organism Code(s): J18.9 - Pneumonia, unspecified organism Status: Acute Assessment and Plan: * some suggestion by admission CXR * follow culture data * on antibiotics * on evidence of hypoxia or respiratory distress * follow clinical symptoms (5) HTN (hypertension): Code(s): I10 - Essential (primary) hypertension Status: Acute Assessment and Plan: * reasonable control at this time * resume home medications * may need further BP medications * follow trend of hemodynamics (6) Anemia: Code(s): D64.9 - Anemia, unspecified Status: Chronic Assessment and Plan: * due to ESRD * H/H supratherapeutic at this time * hold Epogen for now * follow trend of H/H Will continue to follow. L Subjective Date/time seen: 03/12/25 12:20 Interval history: Follow-up for end stage renal disease on hemodialysis. Tolerating dialysis treatment at the time of my visit (seen on HD at 12:10pm) -- however, prior to start of treatment, she was quite confused & uncooperative and would not allow HD nurse to initiate treatment; she was give ativan which did calm/relax her but she remains altered when seen; tolerated dialysis treatment yesterday without issue Exam 2 Narrative: General: elderly female - altered/confused Heart: normal S1 and S2; no rub Lungs: coarse breath sounds; decreased at bases Abdomen: soft, nontender, nondistended, positive bowel sounds Extremities: no cyanosis or clubbing; no edema Skin: warm and intact Objective Data Vital Signs Vital Signs: Vital Signs Temp Pulse Resp BP Pulse Ox O2 Del Method 03/12/25 12:15 94 132/74 03/12/25 12:00 94 130/78 03/12/25 11:45 90 127/78 03/12/25 11:30 91 110/65 03/12/25 11:15 89 128/81 03/12/25 11:00 90 135/70 03/12/25 10:45 81 130/66 03/12/25 10:30 62 132/84 03/12/25 10:15 83 147/92 H 03/12/25 10:00 727 H 155/80 H 03/12/25 09:45 81 130/66 03/12/25 08:42 97.8 F 72 18 126/75 03/12/25 08:15 Room Air 03/12/25 06:00 96.7 F L 96 20 132/71 90 03/11/25 20:59 97.0 F L 109 H 20 135/69 100 03/11/25 20:45 Room Air 03/11/25 20:43 94 Room Air Intake/Output Intake/Output: Intake & Output 03/09/25 03/10/25 03/11/25 03/12/25 23:59 23:59 23:59 23:59 Intake Total 300 810 Output Total 75 2400 1500 Balance 225 -1590 -1500 Meds/Results Medications: Active Medications Generic Name Dose Route Start Last Admin Trade Name Freq PRN Reason Stop Dose Admin Acetaminophen 650 mg 03/10/25 13:39 03/11/25 10:13 Acetaminophen 325 Mg Tablet PO 650 mg Q6H PRN Administration Mild Pain (1-3) or Fever Allopurinol 200 mg 03/11/25 09:00 03/11/25 13:17 Allopurinol 100 Mg Tablet PO 200 mg DAILY ADDISON Administration Amlodipine Besylate 10 mg 03/11/25 09:00 03/11/25 13:17 Amlodipine Besylate 10 Mg Tablet PO 10 mg DAILY ADDISON Administration Aspirin 81 mg 03/11/25 09:00 03/11/25 13:16 Aspirin 81 Mg Enteric Tablet PO 81 mg DAILY ADDISON Administration Atorvastatin Calcium 80 mg 03/11/25 21:00 03/11/25 20:20 Atorvastatin 40 Mg Tablet PO 80 mg HS ADDISON Administration Benzonatate 100 mg 03/10/25 13:39 Benzonatate 100 Mg Capsule PO TID PRN Cough Guaifenesin 600 mg 03/10/25 13:39 Guaifenesin 12 Hr 600 Mg Tabcr PO Q12HR PRN Congestion Doxycycline Hyclate 100 mg/ 100 mls @ 100 mls/hr 03/10/25 21:00 03/11/25 21:33 Sodium Chloride IVPB Infused Q12H ADDISON Infusion Albumin Human 50 mls @ 999 mls/hr 03/10/25 12:49 Albutein IVPB 04/09/25 12:48 Q10M PRN HYPOTENSION Montelukast Sodium 10 mg 03/11/25 21:00 03/11/25 20:20 Montelukast Sodium 10 Mg Tablet PO 10 mg HS ADDISON Administration Perflutren Lipid Microsphere 0 ml 03/10/25 13:38 Perflutren Lipid Microspheres 1.5 Ml Vial Diluted To 10 Ml Total Volume IV PUSH 03/13/25 13:38 ONCE PRN adequate visualization Protocol Fluticasone/Salmeterol 2 puff 03/11/25 08:00 03/12/25 07:36 Fluticasone/Salmeterol 115-21 Mcg Inhaler 1 Puff INHALATION 2 puff Q12HRT ADDISON Administration Radiology Results: ITS Impressions Head CT 03/10/25 07:36 Impression: No intracranial hemorrhage, mass, or acute infarct. Atrophy and chronic white matter changes, as above. Chest X-Ray 03/10/25 10:24 IMPRESSION: Cardiomegaly with congestive leti and minimal interstitial thickening which is suggestive of cardiac decompensation and pulmonary edema. Left basilar atelectasis versus pneumonia with possible. Clinical correlation and follow-up advised. Labs Labs: Laboratory Tests 03/12/25 07:18 03/12/25 07:18 Calcium 10.3 H Phosphorus 4.7 H Albumin 3.7 Microbiology 03/10/25 09:17 Blood Blood Culture - Preliminary 03/10/25 09:17 Blood Blood Culture - Preliminary
--- NOTE | 2025-03-12 16:31 | PC.NURSE ---
pt sleeping in intervals following dialysis, when repositioned or woken up she resists care and has stated leave me alone- I'm not the one!
--- NOTE | 2025-03-12 18:14 | PC.NURSE ---
pt sleeping soundly at this time, will attempt to place a purwick to obtain UA due to pt being incontinent, she also makes very little urine due to dialyis
[2025-03-12] MEDS: ACETAMINOPHEN 325 MG TABLET 650 MG PO (19:47)
[2025-03-12] MEDS: DOXYCYCLINE IV 100 MG in SODIUM CHLORIDE 0.9% IV 100 ML IVPB (22:19)
[2025-03-12] MEDS: MONTELUKAST SODIUM 10 MG TABLET PO (22:20)
[2025-03-12] MEDS: ATORVASTATIN 40 MG TABLET 80 MG PO (22:20)
[2025-03-12 23:25] LABS: Add Urine Microscopic? YES; Appearance Urine Turbid (Clear); Glucose Urine UA Trace mg/dL (Negative); Leukocyte Esterase Ur Trace LEU/UL (Negative); Nitrate Urine Negative (Negative); Specific Grav Ur 1.030 (1.001-1.035)
[2025-03-13 06:00] VITALS: BP 159/63; PULSE 107; RESP 18; TEMP 36.8; O2SAT 99
[2025-03-13 07:50] VITALS: PULSE 107; RESP 16; O2SAT 97
--- NOTE | 2025-03-13 07:56 | PCRCNOTE ---
Patient not answering questions; not cooperating in order to complete respiratory med administration
--- NOTE | 2025-03-13 07:59 | PM.IMPN ---
Progress Note: A&P Assessment and Plan (1) Altered mental status: Qualifiers: Altered mental status type: disorientation Qualified Code(s): R41.0 - Disorientation, unspecified Code(s): R41.82 - Altered mental status, unspecified Status: Acute Assessment and Plan: - Head CT: No intracranial hemorrhage, mass, or acute infarct. Atrophy and chronic white matter changes, as above. - UA not suggestive of UTI - possible PNA on CXR, see below. started on abx- will continue - no significant electrolyte derangements, no hypoxia/supplemental O2 requirement, no significant anemia Suspect encephalopathy secondary to PNA. 03/12 - somewhat better today but still confused. will order ua (pt still makes urine) to r/o uti BC so far negative no worsening resp symptoms-so low suspicion for pneumonia continue tx for now 03/13 ua was collected to r/o uti pt/ot ordered (2) Pneumonia: Qualifiers: Laterality: left Lung location: lower lobe of lung Pneumonia type: due to unspecified organism Qualified Code(s): J18.9 - Pneumonia, unspecified organism Code(s): J18.9 - Pneumonia, unspecified organism Status: Acute Assessment and Plan: - CXR: Cardiomegaly with congestive leti and minimal interstitial thickening which is suggestive of cardiac decompensation and pulmonary edema. Left basilar atelectasis versus pneumonia with possible. Clinical correlation and follow-up advised. - started on CAP tx: Ceftriaxone and doxycycline on 03/10 - no MRSA on file, check PCR - supportive care: Tylenol, Mucinex, Tessalon Perles - sputum culture if obtainable - no current supplemental O2 requirement -IS, ambulation pt is fall risk (3) Pulmonary edema: Qualifiers: Chronicity: acute Qualified Code(s): J81.0 - Acute pulmonary edema Code(s): J81.1 - Chronic pulmonary edema Status: Acute Assessment and Plan: - no echo on file, ordered - CXR concerning for cardiomegaly with congestive leti and minimal interstitial thickening which is suggestive of cardiac decompensation and pulmonary edema. - fluid management via dialysis - monitor I&Os and daily weights - trend renal function 03/10 echo: Summary 1. Complete two-dimensional, color flow and Doppler transthoracic echocardiogram is performed. 2. Technically difficult study and patient refuse to complete full study ECHO. 3. In the available views, there is normal left ventricular size with hyperdynamic systolic function. 4. The right ventricle is normal in size and systolic function. 5. There are no significant valvular abnormalities. Left Ventricle The left ventricle is normal in size with hyperdynamic systolic function. There is concentric left ventricular remodeling. The left ventricular ejection fraction is visually estimated to be greater than 70% (4) ESRD on hemodialysis: Code(s): N18.6 - End stage renal disease; Z99.2 - Dependence on renal dialysis Status: Chronic Assessment and Plan: - creatinine 8.64, BUN 18, GFR 5 - nephrology consulted for inpatient HD - dialysis: Mon, Wed, Mon - trend renal function - trend electrolytes, correct as needed 03/12 cr imporved, able to complete dialysis tx and tolerated it well. (5) HTN (hypertension): Code(s): I10 - Essential (primary) hypertension Status: Acute Assessment and Plan: - chronic, currently 152/85 - continue home medications: Amlodipine - monitor Plan Diet: Renal GI Prophylaxis: NA DVT Prophylaxis: SCDs IV fluids: 1L bolus Lines/Tubes: peripheral IV Code Status: full code Time Spent With Patient Time with patient: 25 - 35 minutes Subjective Date/time seen: 03/13/25 07:59 Interval history: pt is seen and examined. She is still drowsy but a bit more interactive. rocephin was restarted, pt ua was collected Review of Systems Review of Systems: All systems reviewed & are unremarkable except as noted in HPI and below (Limited, altered) Exam Narrative: A/Ox1. +thrill and bruit to graft in the RUE. Const: General: comfortable and no acute distress Other: , female, nontoxic appearance HENMT: Face/Nose/Sinus: Normal nares present Mouth: Yes moist mucous membranes Eyes: General: appearance normal, both eyes and all related structures Sclera: sclerae normal Pupils: Equal, round and reactive pupils present EOM: EOMs intact bilaterally Resp: Effort & Inspection: normal respiratory effort Auscultation: clear to auscultation bilaterally Cardio: Rate: regular rate Rhythm: regular rhythm Other: S1-S2 present without murmur, rub, ectopy GI: Other: Abdomen soft, nondistended, nontender. Normoactive bowel sounds in all quadrants. Skin: General skin exam: normal color and no rashes or lesions noted Wounds: no wounds Neuro: Cranial nerves: Yes Equal, round and reactive pupils present Speech: normal speech Motor exam (neuro): 5/5 motor strength present throughout Sensory Exam: normal sensation Other: A&O x1, somnolent Extrem: General: normal to inspection Other: + thrill and bruit to graft in the left upper extremity Psych: Mental Status: mental status grossly normal Affect: normal affect Other: Poor insight and judgment Objective Data Vital Signs Vital Signs: Vital Signs - 24 hr 03/12/25 08:15 03/12/25 08:42 03/12/25 09:45 Temperature 97.8 F Pulse Rate 72 81 Respiratory Rate 18 Blood Pressure 126/75 130/66 Pulse Oximetry Oxygen Delivery Room Air 03/12/25 10:00 03/12/25 10:15 03/12/25 10:30 Temperature Pulse Rate 727 H 83 62 Respiratory Rate Blood Pressure 155/80 H 147/92 H 132/84 Pulse Oximetry Oxygen Delivery 03/12/25 10:45 03/12/25 11:00 03/12/25 11:15 Temperature Pulse Rate 81 90 89 Respiratory Rate Blood Pressure 130/66 135/70 128/81 Pulse Oximetry Oxygen Delivery 03/12/25 11:30 03/12/25 11:45 03/12/25 12:00 Temperature Pulse Rate 91 90 94 Respiratory Rate Blood Pressure 110/65 127/78 130/78 Pulse Oximetry Oxygen Delivery 03/12/25 12:15 03/12/25 12:30 03/12/25 12:45 Temperature Pulse Rate 94 96 95 Respiratory Rate Blood Pressure 132/74 139/86 122/78 Pulse Oximetry Oxygen Delivery 03/12/25 13:05 03/12/25 20:00 03/12/25 22:00 Temperature 97.6 F 98 F Pulse Rate 103 H 112 H Respiratory Rate 17 18 Blood Pressure 140/66 166/64 H Pulse Oximetry 100 Oxygen Delivery Room Air 03/13/25 06:00 Temperature 98.2 F Pulse Rate 107 H Respiratory Rate 18 Blood Pressure 159/63 H Pulse Oximetry 99 Oxygen Delivery Intake/Output Intake/Output: Intake & Output 03/10/25 03/11/25 03/12/25 03/13/25 23:59 23:59 23:59 23:59 Intake Total 300 810 100 0 Output Total 75 2400 1550 100 Balance 225 -1590 -1450 -100 Meds/Results Medications: Active Medications Generic Name Dose Route Start Last Admin Trade Name Freq PRN Reason Stop Dose Admin Acetaminophen 650 mg 03/10/25 13:39 03/12/25 19:47 Acetaminophen 325 Mg Tablet PO 650 mg Q6H PRN Administration Mild Pain (1-3) or Fever Allopurinol 200 mg 03/11/25 09:00 03/12/25 16:30 Allopurinol 100 Mg Tablet PO Not Given DAILY ADDISON Amlodipine Besylate 10 mg 03/11/25 09:00 03/12/25 16:30 Amlodipine Besylate 10 Mg Tablet PO Not Given DAILY [facility] Aspirin 81 mg 03/11/25 09:00 03/12/25 16:30 Aspirin 81 Mg Enteric Tablet PO Not Given DAILY ADDISON Atorvastatin Calcium 80 mg 03/11/25 21:00 03/12/25 22:20 Atorvastatin 40 Mg Tablet PO 80 mg HS [facility] Administration Benzonatate 100 mg 03/10/25 13:39 Benzonatate 100 Mg Capsule PO TID PRN Cough Guaifenesin 600 mg 03/10/25 13:39 Guaifenesin 12 Hr 600 Mg Tabcr PO Q12HR PRN Congestion Doxycycline Hyclate 100 mg/ 100 mls @ 100 mls/hr 03/10/25 21:00 03/12/25 23:19 Sodium Chloride IVPB Infused Q12H ADDISON Infusion Albumin Human 50 mls @ 999 mls/hr 03/10/25 12:49 Albutein IVPB 04/09/25 12:48 Q10M PRN HYPOTENSION Montelukast Sodium 10 mg 03/11/25 21:00 03/12/25 22:20 Montelukast Sodium 10 Mg Tablet PO 10 mg HS ADDISON Administration Perflutren Lipid Microsphere 0 ml 03/10/25 13:38 Perflutren Lipid Microspheres 1.5 Ml Vial Diluted To 10 Ml Total Volume IV PUSH 03/13/25 13:38 ONCE PRN adequate visualization Protocol Fluticasone/Salmeterol 2 puff 03/11/25 08:00 03/13/25 07:54 Fluticasone/Salmeterol 115-21 Mcg Inhaler 1 Puff INHALATION Not Given Q12HRT [facility] Radiology Results: ITS Impressions Head CT 03/10/25 07:36 Impression: No intracranial hemorrhage, mass, or acute infarct. Atrophy and chronic white matter changes, as above. Chest X-Ray 03/10/25 10:24 IMPRESSION: Cardiomegaly with congestive leti and minimal interstitial thickening which is suggestive of cardiac decompensation and pulmonary edema. Left basilar atelectasis versus pneumonia with possible. Clinical correlation and follow-up advised. Labs Labs: Laboratory Results - last 24 hr 03/12/25 23:03 Urine Color Dark yellow Urine Appearance Turbid H Urine pH >=9.0 H Ur Specific [place] 1.030 Urine Protein 4+ H Urine Glucose (UA) Trace H Urine Ketones 2+ H Ur Blood (Man) Negative Urine Nitrate Negative Urine Bilirubin Negative Urine Urobilinogen 1.0 Leukocyte Esterase Rfl Trace H Urine RBC 6-10 H Urine WBC 0-5 Ur Squamous Epith Cells Many H Urine Bacteria Rare Urine Casts 6-10 Quality VTE Prophylaxis VTE prophylaxis: mechanical ordered
[2025-03-13] MEDS: ASPIRIN 81 MG ENTERIC TABLET PO (08:36)
[2025-03-13] MEDS: ACETAMINOPHEN 325 MG TABLET 650 MG PO ×2 (08:37→20:57)
[2025-03-13] MEDS: DOXYCYCLINE IV 100 MG in SODIUM CHLORIDE 0.9% IV 100 ML IVPB ×2 (09:00→23:50)
[2025-03-13] MEDS: cefTRIAXone 2 GM in SODIUM CHLORIDE 0.9% IV 100 ML 200 ML IVPB (10:16)
--- NOTE | 2025-03-13 11:28 | PCNFU ---
Nutrition Follow-Up Complete: Inadequate oral intake related to loss of appetite, dialysis as evidenced by intakes 5% PO intakes >50% - Progressing with goal Intakes 10-80%, improving. Continue with same goal Goal: Pt current nutrition is Renal diet. Nepro BID (420 kcal, 19 g protein) Nutrition recommendation: No new recommendations. Continue current nutrition care plan and orders. Agree with orders Last recorded weight is 95.8 kg. Bowel Motility: No BMs are charted Labs Reviewed: No labs today Meds Noted: No nutrition related meds Skin: WNL Additional Notes: Intakes improved last 24 hours Supplements are on. Will continue to monitor. Monitoring intakes, weights, labs, supplement tolerance, plan of care Follow up in 3 days
--- NOTE | 2025-03-13 11:55 | PCPTNOTE ---
Attempted PT evaluation. Pt hardly would open her eyes. Pt would not speak to therapist. Nursing aware of situation. Will follow.
--- NOTE | 2025-03-13 12:26 | P.PNNP_ITS ---
Progress Note: A&P Assessment and Plan (1) End stage renal disease: Code(s): N18.6 - End stage renal disease Status: Chronic Assessment and Plan: * HD tomorrow * continue outpatient schedule of Mon/Mon/Monday * follow electrolytes, volume status, and clearance (2) Altered mental status: Qualifiers: Altered mental status type: disorientation Qualified Code(s): R41.0 - Disorientation, unspecified Code(s): R41.82 - Altered mental status, unspecified Status: Acute Assessment and Plan: * reportedly noted over the last 2 weeks * clinically worse on 03/10 with associated agitation/combative behavior * however, per outpatient dialysis center, her mentation seems to fluctuate even at baseline * but she is usually not combative/uncooperative * CT of brain noted: * no intracranial hemorrhage, mass, or acute infarct * atrophy and chronic white matter changes * related to possible infection(?): * admission UA not suggestive of UTI * however, repeat UA (03/12) noted * questionable pneumonia on CXR * on empiric antibiotics * consider further imaging (i.e. MRI of brain) if not improvement * benefit to Neurology consultation? * possible underlying dementia? (3) Pulmonary edema: Qualifiers: Chronicity: acute Qualified Code(s): J81.0 - Acute pulmonary edema Code(s): J81.1 - Chronic pulmonary edema Status: Acute Assessment and Plan: * as noted by admission CXR: * cardiomegaly with congestive leti and minimal interstitial thickening which is suggestive of cardiac decompensation and pulmonary edema * however, no evidence of respiratory distress or hypoxia * Echo results noted: * there is normal left ventricular size with hyperdynamic systolic function * left ventricular ejection fraction is visually estimated to be greater than 70% * right ventricle is normal in size and systolic function * no significant valvular abnormalities * fluid removal with dialysis as tolerated * follow respiratory status (4) Pneumonia: Qualifiers: Laterality: left Lung location: lower lobe of lung Pneumonia type: due to unspecified organism Qualified Code(s): J18.9 - Pneumonia, unspecified organism Code(s): J18.9 - Pneumonia, unspecified organism Status: Acute Assessment and Plan: * some suggestion by admission CXR * follow culture data - negative to date * on antibiotics * on evidence of hypoxia or respiratory distress * follow clinical symptoms (5) HTN (hypertension): Code(s): I10 - Essential (primary) hypertension Status: Acute Assessment and Plan: * reasonable control at this time * resume home medications * may need further BP medications * follow trend of hemodynamics (6) Anemia: Code(s): D64.9 - Anemia, unspecified Status: Chronic Assessment and Plan: * due to ESRD * H/H supratherapeutic at this time * hold Epogen for now * follow trend of H/H Will continue to follow. L Subjective Date/time seen: 03/13/25 12:26 Interval history: Follow-up for end stage renal disease on hemodialysis. Tolerated dialysis yesterday without any issues or problems (but required IV ativan to calm/relax her for treatment to be done); still somewhat confused but not agitated at the time of my visit; no other issues/events overnight or earlier this morning per nursing. Exam 2 Narrative: General: elderly female in NAD Heart: normal S1 and S2; no rub Lungs: coarse breath sounds; decreased at bases Abdomen: soft, nontender, nondistended, positive bowel sounds Extremities: no cyanosis or clubbing; no edema Skin: no rash Objective Data Vital Signs Vital Signs: Vital Signs Temp Pulse Resp BP Pulse Ox O2 Del Method 03/13/25 12:00 97 F L 98 16 144/71 H 97 03/13/25 07:50 107 H 16 97 Room Air 03/13/25 06:00 98.2 F 107 H 18 159/63 H 99 03/12/25 22:00 98 F 112 H 18 166/64 H 100 03/12/25 20:00 Room Air Intake/Output Intake/Output: Intake & Output 03/10/25 03/11/25 03/12/25 03/13/25 23:59 23:59 23:59 23:59 Intake Total 300 810 100 218 Output Total 75 2400 1550 100 Balance 225 -1590 -1450 118 Meds/Results Medications: Active Medications Generic Name Dose Route Start Last Admin Trade Name Freq PRN Reason Stop Dose Admin Acetaminophen 650 mg 03/10/25 13:39 03/13/25 08:37 Acetaminophen 325 Mg Tablet PO 650 mg Q6H PRN Administration Mild Pain (1-3) or Fever Allopurinol 200 mg 03/11/25 09:00 03/13/25 08:36 Allopurinol 100 Mg Tablet PO 200 mg DAILY ADDISON Administration Amlodipine Besylate 10 mg 03/11/25 09:00 03/13/25 08:36 Amlodipine Besylate 10 Mg Tablet PO 10 mg DAILY ADDISON Administration Aspirin 81 mg 03/11/25 09:00 03/13/25 08:36 Aspirin 81 Mg Enteric Tablet PO 81 mg DAILY ADDIS[facility] Administration Atorvastatin Calcium 80 mg 03/11/25 21:00 03/12/25 22:20 Atorvastatin 40 Mg Tablet PO 80 mg HS ADDISON Administration Benzonatate 100 mg 03/10/25 13:39 Benzonatate 100 Mg Capsule PO TID PRN Cough Guaifenesin 600 mg 03/10/25 13:39 Guaifenesin 12 Hr 600 Mg Tabcr PO Q12HR PRN Congestion Doxycycline Hyclate 100 mg/ 100 mls @ 100 mls/hr 03/10/25 21:00 03/13/25 10:00 Sodium Chloride IVPB 03/14/25 21:59 Infused Q12H AD[facility] Infusion Albumin Human 50 mls @ 999 mls/hr 03/10/25 12:49 Albutein IVPB 04/09/25 12:48 Q10M PRN HYPOTENSION Ceftriaxone Sodium 2 gm/ 100 mls @ 200 mls/hr 03/13/25 09:00 03/13/25 10:16 Sodium Chloride IVPB 200 mls/hr DAILY ADDIS[facility] Administration Montelukast Sodium 10 mg 03/11/25 21:00 03/12/25 22:20 Montelukast Sodium 10 Mg Tablet PO 10 mg HS ADDIS[facility] Administration Fluticasone/Salmeterol 2 puff 03/11/25 08:00 03/13/25 07:54 Fluticasone/Salmeterol 115-21 Mcg Inhaler 1 Puff INHALATION Not Given Q12HRT [facility] Radiology Results: ITS Impressions Head CT 03/10/25 07:36 Impression: No intracranial hemorrhage, mass, or acute infarct. Atrophy and chronic white matter changes, as above. Chest X-Ray 03/10/25 10:24 IMPRESSION: Cardiomegaly with congestive leti and minimal interstitial thickening which is suggestive of cardiac decompensation and pulmonary edema. Left basilar atelectasis versus pneumonia with possible. Clinical correlation and follow-up advised. Labs Labs: Laboratory Tests 03/12/25 07:18 03/12/25 07:18 Microbiology 03/10/25 09:17 Blood Blood Culture - Preliminary 03/10/25 09:17 Blood Blood Culture - Preliminary
[2025-03-13 14:00] VITALS: BP 144/71; PULSE 98; RESP 16; TEMP 36.1; O2SAT 97
[2025-03-13] MEDS: FLUTICASONE/SALMETEROL 115-21 MCG INHALER 1 PUFF 2 PUFF INHALATION (20:25)
[2025-03-13 20:27] VITALS: O2SAT 94
[2025-03-13] MEDS: MONTELUKAST SODIUM 10 MG TABLET PO (20:58)
[2025-03-13] MEDS: ATORVASTATIN 40 MG TABLET 80 MG PO (20:58)
[2025-03-13 22:00] VITALS: BP 132/83; PULSE 108; RESP 18; TEMP 36.6; O2SAT 97
--- NOTE | 2025-03-13 23:14 | PC.NURSE ---
Pt very agitated at this time. Pt constantly screaming for family members or to be let out to go home. This nurse had attempted giving pt scheduled medications for the night. Medications given whole and with water. Pt would keep the medications in her mouth but not swallow. Eventually pt would spit medication out because it tastes horrible. Attempted to give pt her IV abx at this time as well and pt would start screaming in panic and flailing her arms. Unable to administer IV abx at this time.
[2025-03-14] VITALS (22 sets, daily range): BP systolic 99–184; BP diastolic 52–120; PULSE 51–114; RESP 16–18; TEMP 35.9–37; O2SAT 97–100
[2025-03-14 05:49] LABS: Hematocrit 41.1 % (37.0-47.0); Hemoglobin 12.9 g/dL (12.0-15.0); Immature Granulocyte Percent A 0.3 % (0-0.5); Lymphocytes Absolute Auto 2.35 K/mm3 (0.9-3.2); Mean Corpuscular HGB Conc 31.4 g/dl (32-36); Mean Corpuscular Hemoglobin 27.1 pg (26-34); Mean Corpuscular Volume 86.3 fl (80-100); Nucleated Red Blood Cells Absolute Auto 0.030 K/mm3 (0.0-0.012); Nucleated Red Blood Cells Perc 0.3 % (0.0-0.2); Platelet Count Result 323 k/mm3 (150-375); Red Blood Count 4.76 M/mm3 (4.2-5.4); White Blood Count 8.9 K/mm3 (4.5-10.0)
[2025-03-14 06:12] LABS: Alanine Aminotransferase 10 U/L (6-35); Albumin Level 3.7 g/dL (3.5-5.1); Alkaline Phosphatase 120 U/L (38-126); Anion Gap 15 mmol/L (4-12); Aspartate Amino Transferase 33 U/L (14-36); Bilirubin,Total 0.8 mg/dL (0.2-1.3); Blood Urea Nitrogen 21 mg/dL (7-17); Calcium 10.7 mg/dL (8.4-10.2); Carbon Dioxide 21 mmol/L (22-30); Chloride 106 mmol/L (98-107); Estimated CRCL calculation 7 ml/min; Estimated Glomerular Filt Rate 5; Glucose 117 mg/dL (65-110); Magnesium 2.2 mg/dL (1.6-2.3); Potassium 4.0 mmol/L (3.4-5.0); Sodium 142 mmol/L (137-145); Total Protein 7.3 g/dL (6.3-8.2)
[2025-03-14] MEDS: SODIUM CHLORIDE 0.9% IV 1,000 ML 999 ML IV CONT (07:00)
--- NOTE | 2025-03-14 08:08 | PM.IMPN ---
Progress Note: A&P Assessment and Plan (1) Altered mental status: Qualifiers: Altered mental status type: disorientation Qualified Code(s): R41.0 - Disorientation, unspecified Code(s): R41.82 - Altered mental status, unspecified Status: Acute Assessment and Plan: - Head CT: No intracranial hemorrhage, mass, or acute infarct. Atrophy and chronic white matter changes, as above. - UA not suggestive of UTI - possible PNA on CXR, see below. started on abx- will continue - no significant electrolyte derangements, no hypoxia/supplemental O2 requirement, no significant anemia Suspect encephalopathy secondary to PNA. 03/12 - somewhat better today but still confused. will order ua (pt still makes urine) to r/o uti BC so far negative no worsening resp symptoms-so low suspicion for pneumonia continue tx for now 03/13 ua was collected to r/o uti pt/ot ordered 03/14 a little more alert today continue antibiotcs neurology was consulted-awaiting recommendations (2) Pneumonia: Qualifiers: Laterality: left Lung location: lower lobe of lung Pneumonia type: due to unspecified organism Qualified Code(s): J18.9 - Pneumonia, unspecified organism Code(s): J18.9 - Pneumonia, unspecified organism Status: Acute Assessment and Plan: - CXR: Cardiomegaly with congestive leti and minimal interstitial thickening which is suggestive of cardiac decompensation and pulmonary edema. Left basilar atelectasis versus pneumonia with possible. Clinical correlation and follow-up advised. - started on CAP tx: Ceftriaxone and doxycycline on 03/10 - no MRSA on file, check PCR - supportive care: Tylenol, Mucinex, Tessalon Perles - sputum culture if obtainable - no current supplemental O2 requirement -IS, ambulation pt is fall and aspiration risk (3) Pulmonary edema: Qualifiers: Chronicity: acute Qualified Code(s): J81.0 - Acute pulmonary edema Code(s): J81.1 - Chronic pulmonary edema Status: Acute Assessment and Plan: - no echo on file, ordered - CXR concerning for cardiomegaly with congestive leti and minimal interstitial thickening which is suggestive of cardiac decompensation and pulmonary edema. - fluid management via dialysis - monitor I&Os and daily weights - trend renal function 03/10 echo: Summary 1. Complete two-dimensional, color flow and Doppler transthoracic echocardiogram is performed. 2. Technically difficult study and patient refuse to complete full study ECHO. 3. In the available views, there is normal left ventricular size with hyperdynamic systolic function. 4. The right ventricle is normal in size and systolic function. 5. There are no significant valvular abnormalities. Left Ventricle The left ventricle is normal in size with hyperdynamic systolic function. There is concentric left ventricular remodeling. The left ventricular ejection fraction is visually estimated to be greater than 70% (4) ESRD on hemodialysis: Code(s): N18.6 - End stage renal disease; Z99.2 - Dependence on renal dialysis Status: Chronic Assessment and Plan: - creatinine 8.64, BUN 18, GFR 5 - nephrology consulted for inpatient HD - dialysis: Mon, Wed, Mon - trend renal function - trend electrolytes, correct as needed 03/12 cr imporved, able to complete dialysis tx and tolerated it well. (5) HTN (hypertension): Code(s): I10 - Essential (primary) hypertension Status: Acute Assessment and Plan: - chronic, currently 152/85 - continue home medications: Amlodipine - monitor Plan Diet: Renal GI Prophylaxis: NA DVT Prophylaxis: SCDs IV fluids: Lines/Tubes: peripheral IV Code Status: full code noted no BM for last few days- could be a reason for abd tenderness- will add miralax and if no BM, suppository prn Time Spent With Patient Time with patient: 25 - 35 minutes Subjective Date/time seen: 03/14/25 08:08 Interval history: pt is juan nd examined. Was anxious again during dialysis. When she was seen arounf 1400, she was more alert and able to answer some questions. Denies pain but was tender to palpation to abd. Review of Systems Review of Systems: All systems reviewed & are unremarkable except as noted in HPI and below (Limited, altered) Exam Narrative: A/Ox1. +thrill and bruit to graft in the RUE. Const: General: comfortable and no acute distress Other: , female, nontoxic appearance HENMT: Face/Nose/Sinus: Normal nares present Mouth: Yes moist mucous membranes Eyes: General: appearance normal, both eyes and all related structures Sclera: sclerae normal Pupils: Equal, round and reactive pupils present EOM: EOMs intact bilaterally Resp: Effort & Inspection: normal respiratory effort Auscultation: clear to auscultation bilaterally Cardio: Rate: regular rate Rhythm: regular rhythm Other: S1-S2 present without murmur, rub, ectopy GI: Other: Abdomen soft, nondistended, nontender. Normoactive bowel sounds in all quadrants. Skin: General skin exam: normal color and no rashes or lesions noted Wounds: no wounds Neuro: Cranial nerves: Yes Equal, round and reactive pupils present Speech: normal speech Motor exam (neuro): 5/5 motor strength present throughout Sensory Exam: normal sensation Other: A&O x1, somnolent Extrem: General: normal to inspection Other: + thrill and bruit to graft in the left upper extremity Psych: Mental Status: mental status grossly normal Affect: normal affect Other: Poor insight and judgment Objective Data Vital Signs Vital Signs: Vital Signs - 24 hr 03/13/25 10:00 03/13/25 14:00 03/13/25 20:27 Temperature 97 F L Pulse Rate 98 Respiratory Rate 16 Blood Pressure 144/71 H Pulse Oximetry 97 94 Oxygen Delivery Room Air Room Air 03/13/25 20:46 03/13/25 22:00 Temperature 97.9 F Pulse Rate 108 H Respiratory Rate 18 Blood Pressure 132/83 Pulse Oximetry 97 Oxygen Delivery Room Air Intake/Output Intake/Output: Intake & Output 03/11/25 03/12/25 03/13/25 03/14/25 23:59 23:59 23:59 23:59 Intake Total 810 100 556 100 Output Total 2400 1550 150 100 Balance -1590 -1450 406 0 Meds/Results Medications: Active Medications Generic Name Dose Route Start Last Admin Trade Name Freq PRN Reason Stop Dose Admin Acetaminophen 650 mg 03/10/25 13:39 03/13/25 20:57 Acetaminophen 325 Mg Tablet PO 650 mg Q6H PRN Administration Mild Pain (1-3) or Fever Allopurinol 200 mg 03/11/25 09:00 03/13/25 08:36 Allopurinol 100 Mg Tablet PO 200 mg DAILY ADDISON Administration Amlodipine Besylate 10 mg 03/11/25 09:00 03/13/25 08:36 Amlodipine Besylate 10 Mg Tablet PO 10 mg DAILY ADDISON Administration Aspirin 81 mg 03/11/25 09:00 03/13/25 08:36 Aspirin 81 Mg Enteric Tablet PO 81 mg DAILY ADDISON Administration Atorvastatin Calcium 80 mg 03/11/25 21:00 03/13/25 20:58 Atorvastatin 40 Mg Tablet PO 80 mg HS ADDISON Administration Benzonatate 100 mg 03/10/25 13:39 Benzonatate 100 Mg Capsule PO TID PRN Cough Guaifenesin 600 mg 03/10/25 13:39 Guaifenesin 12 Hr 600 Mg Tabcr PO Q12HR PRN Congestion Doxycycline Hyclate 100 mg/ 100 mls @ 100 mls/hr 03/10/25 21:00 03/14/25 00:50 Sodium Chloride IVPB 03/14/25 21:59 Infused Q12H ADDISON Infusion Albumin Human 50 mls @ 999 mls/hr 03/10/25 12:49 Albutein IVPB 04/09/25 12:48 Q10M PRN HYPOTENSION Ceftriaxone Sodium 2 gm/ 100 mls @ 200 mls/hr 03/13/25 09:00 03/13/25 10:46 Sodium Chloride IVPB Infused DAILY ADDISON Infusion Montelukast Sodium 10 mg 03/11/25 21:00 03/13/25 20:58 Montelukast Sodium 10 Mg Tablet PO 10 mg HS ADDISON Administration Fluticasone/Salmeterol 2 puff 03/11/25 08:00 03/13/25 20:25 Fluticasone/Salmeterol 115-21 Mcg Inhaler 1 Puff INHALATION 2 puff Q12HRT ADDISON Administration Radiology Results: ITS Impressions Head CT 03/10/25 07:36 Impression: No intracranial hemorrhage, mass, or acute infarct. Atrophy and chronic white matter changes, as above. Chest X-Ray 03/10/25 10:24 IMPRESSION: Cardiomegaly with congestive leti and minimal interstitial thickening which is suggestive of cardiac decompensation and pulmonary edema. Left basilar atelectasis versus pneumonia with possible. Clinical correlation and follow-up advised. Labs Labs: Laboratory Results - last 24 hr 03/14/25 05:21 WBC 8.9 RBC 4.76 Hgb 12.9 Hct 41.1 MCV 86.3 MCH 27.1 MCHC 31.4 L RDW 17.2 H Plt Count 323 MPV 9.5 Immature Gran % (Auto) 0.3 Neut % (Auto) 51.2 Lymph % (Auto) 26.4 [place] % (Auto) 15.9 H Eos % (Auto) 5.2 H Baso % (Auto) 1.0 Lymph # (Auto) 2.35 [place] # (Auto) 1.4 H Eos # (Auto) 0.5 H Baso # (Auto) 0.1 Abs Immat Gran (auto) 0.03 Absolute Neuts (auto) 4.6 Absolute Nucleated RBC 0.030 H Nucleated RBC % 0.3 H Sodium 142 Potassium 4.0 Chloride 106 Carbon Dioxide 21 L Anion Gap 15 H BUN 21 H Creatinine 8.21 H Estim Creat Clear Calc 7 Estimated GFR 5 L Glucose 117 H Calcium 10.7 H Magnesium 2.2 Total Bilirubin 0.8 AST 33 ALT 10 Alkaline Phosphatase 120 Total Protein 7.3 Albumin 3.7 Quality VTE Prophylaxis VTE prophylaxis: mechanical ordered
[2025-03-14] MEDS: LORazepam INJ (*CRX) 2 MG/ML VIAL 0.5 MG IV PUSH (09:18)
[2025-03-14] MEDS: FLUTICASONE/SALMETEROL 115-21 MCG INHALER 1 PUFF 2 PUFF INHALATION ×2 (09:55→20:17)
--- NOTE | 2025-03-14 11:32 | P.PNNP_ITS ---
Progress Note: A&P Assessment and Plan (1) End stage renal disease: Code(s): N18.6 - End stage renal disease Status: Chronic Assessment and Plan: * HD underway * potassium doing well. * volume status looks okay (2) Altered mental status: Qualifiers: Altered mental status type: disorientation Qualified Code(s): R41.0 - Disorientation, unspecified Code(s): R41.82 - Altered mental status, unspecified Status: Acute Assessment and Plan: * reportedly noted over the last 2 weeks * clinically worse on 03/10 with associated agitation/combative behavior * however, per outpatient dialysis center, her mentation seems to fluctuate even at baseline * but she is usually not combative/uncooperative * CT of brain noted: * no intracranial hemorrhage, mass, or acute infarct * atrophy and chronic white matter changes * related to possible infection(?): * admission UA not suggestive of UTI * however, repeat UA (03/12) noted * questionable pneumonia on CXR * per hospitalist encephalopathy due to pneumonia. * on empiric antibiotics * benefit to Neurology consultation if not better? * possible underlying dementia? (3) Pulmonary edema: Qualifiers: Chronicity: acute Qualified Code(s): J81.0 - Acute pulmonary edema Code(s): J81.1 - Chronic pulmonary edema Status: Acute Assessment and Plan: * as noted by admission CXR: * cardiomegaly with congestive leti and minimal interstitial thickening which is suggestive of cardiac decompensation and pulmonary edema * however, no evidence of respiratory distress or hypoxia * Echo results noted: * there is normal left ventricular size with hyperdynamic systolic function * left ventricular ejection fraction is visually estimated to be greater than 70% * right ventricle is normal in size and systolic function * no significant valvular abnormalities * fluid removal with dialysis as tolerated * follow respiratory status (4) Pneumonia: Qualifiers: Laterality: left Lung location: lower lobe of lung Pneumonia type: due to unspecified organism Qualified Code(s): J18.9 - Pneumonia, unspecified organism Code(s): J18.9 - Pneumonia, unspecified organism Status: Acute Assessment and Plan: * some suggestion by admission CXR * follow culture data - negative to date * on antibiotics * on evidence of hypoxia or respiratory distress * on no oxygen. (5) HTN (hypertension): Code(s): I10 - Essential (primary) hypertension Status: Acute Assessment and Plan: * systolic 120s to 150s * resume home medications * may need further BP medications * follow trend of hemodynamics (6) Anemia: Code(s): D64.9 - Anemia, unspecified Status: Chronic Assessment and Plan: * due to ESRD * H/H supratherapeutic at this time * holding Epogen for now * follow trend of H/H Subjective Date/time seen: 03/14/25 11:32 Interval history: pt is in bed. she received a sedative because she was so anxious. ON HD gilda it well. BP is good. going for 1-2 L fluid. seen at 9:30am Exam Narrative: General: elderly female in NAD Heart: normal S1 and S2; no rub or gallop Lungs: coarse breath sounds; decreased at bases Abdomen: soft, nontender, nondistended, positive bowel sounds Extremities: no cyanosis or clubbing; no edema Skin: no rash or sq nodule Objective Data Vital Signs Vital Signs: Vital Signs - 24 hr 03/13/25 14:00 03/13/25 20:27 03/13/25 20:46 Temperature 97 F L Pulse Rate 98 Respiratory Rate 16 Blood Pressure 144/71 H Pulse Oximetry 97 94 Oxygen Delivery Room Air Room Air 03/13/25 22:00 03/14/25 08:00 03/14/25 08:11 Temperature 97.9 F 96.7 F L Pulse Rate 108 H 107 H 106 H Respiratory Rate 18 16 Blood Pressure 132/83 161/86 H 155/78 H Pulse Oximetry 97 100 Oxygen Delivery 03/14/25 08:30 03/14/25 08:45 03/14/25 09:00 Temperature Pulse Rate 107 H 106 H 114 H Respiratory Rate Blood Pressure 184/82 H 149/89 H 137/99 H Pulse Oximetry Oxygen Delivery 03/14/25 09:15 03/14/25 09:30 03/14/25 09:45 Temperature Pulse Rate 51 L 91 106 H Respiratory Rate Blood Pressure 99/52 L 121/88 152/82 H Pulse Oximetry Oxygen Delivery 03/14/25 09:55 03/14/25 10:00 03/14/25 10:15 Temperature Pulse Rate 107 H 104 H Respiratory Rate Blood Pressure 131/80 157/68 H Pulse Oximetry 100 Oxygen Delivery Room Air 03/14/25 10:30 03/14/25 10:45 03/14/25 11:00 Temperature Pulse Rate 106 H 101 H 98 Respiratory Rate Blood Pressure 143/75 H 112/76 163/120 H Pulse Oximetry Oxygen Delivery 03/14/25 11:15 Temperature Pulse Rate 105 H Respiratory Rate Blood Pressure 101/63 Pulse Oximetry Oxygen Delivery Intake/Output Intake/Output: Intake & Output 03/11/25 03/12/25 03/13/25 03/14/25 23:59 23:59 23:59 23:59 Intake Total 810 100 556 100 Output Total 2400 1550 150 100 Balance -1590 -1450 406 0 Meds/Results Medications: Active Medications Generic Name Dose Route Start Last Admin Trade Name Freq PRN Reason Stop Dose Admin Acetaminophen 650 mg 03/10/25 13:39 03/13/25 20:57 Acetaminophen 325 Mg Tablet PO 650 mg Q6H PRN Administration Mild Pain (1-3) or Fever Allopurinol 200 mg 03/11/25 09:00 03/13/25 08:36 Allopurinol 100 Mg Tablet PO 200 mg DAILY ADDISON Administration Amlodipine Besylate 10 mg 03/11/25 09:00 03/13/25 08:36 Amlodipine Besylate 10 Mg Tablet PO 10 mg DAILY ADDISON Administration Aspirin 81 mg 03/11/25 09:00 03/13/25 08:36 Aspirin 81 Mg Enteric Tablet PO 81 mg DAILY ADDISON Administration Atorvastatin Calcium 80 mg 03/11/25 21:00 03/13/25 20:58 Atorvastatin 40 Mg Tablet PO 80 mg HS ADDISON Administration Benzonatate 100 mg 03/10/25 13:39 Benzonatate 100 Mg Capsule PO TID PRN Cough Guaifenesin 600 mg 03/10/25 13:39 Guaifenesin 12 Hr 600 Mg Tabcr PO Q12HR PRN Congestion Doxycycline Hyclate 100 mg/ 100 mls @ 100 mls/hr 03/10/25 21:00 03/14/25 00:50 Sodium Chloride IVPB 03/14/25 21:59 Infused Q12H ADDISON Infusion Albumin Human 50 mls @ 999 mls/hr 03/10/25 12:49 Albutein IVPB 04/09/25 12:48 Q10M PRN HYPOTENSION Ceftriaxone Sodium 2 gm/ 100 mls @ 200 mls/hr 03/13/25 09:00 03/13/25 10:46 Sodium Chloride IVPB Infused DAILY ADDISON Infusion Montelukast Sodium 10 mg 03/11/25 21:00 03/13/25 20:58 Montelukast Sodium 10 Mg Tablet PO 10 mg HS ADDISON Administration Fluticasone/Salmeterol 2 puff 03/11/25 08:00 03/14/25 09:55 Fluticasone/Salmeterol 115-21 Mcg Inhaler 1 Puff INHALATION 2 puff Q12HRT ADDISON Administration Radiology Results: ITS Impressions Head CT 03/10/25 07:36 Impression: No intracranial hemorrhage, mass, or acute infarct. Atrophy and chronic white matter changes, as above. Chest X-Ray 03/10/25 10:24 IMPRESSION: Cardiomegaly with congestive leti and minimal interstitial thickening which is suggestive of cardiac decompensation and pulmonary edema. Left basilar atelectasis versus pneumonia with possible. Clinical correlation and follow-up advised. Labs Labs: Laboratory Results - last 24 hr 03/14/25 05:21 WBC 8.9 RBC 4.76 Hgb 12.9 Hct 41.1 MCV 86.3 MCH 27.1 MCHC 31.4 L RDW 17.2 H Plt Count 323 MPV 9.5 Immature Gran % (Auto) 0.3 Neut % (Auto) 51.2 Lymph % (Auto) 26.4 [place] % (Auto) 15.9 H Eos % (Auto) 5.2 H Baso % (Auto) 1.0 Lymph # (Auto) 2.35 [place] # (Auto) 1.4 H Eos # (Auto) 0.5 H Baso # (Auto) 0.1 Abs Immat Gran (auto) 0.03 Absolute Neuts (auto) 4.6 Absolute Nucleated RBC 0.030 H Nucleated RBC % 0.3 H Sodium 142 Potassium 4.0 Chloride 106 Carbon Dioxide 21 L Anion Gap 15 H BUN 21 H Creatinine 8.21 H Estim Creat Clear Calc 7 Estimated GFR 5 L Glucose 117 H Calcium 10.7 H Magnesium 2.2 Total Bilirubin 0.8 AST 33 ALT 10 Alkaline Phosphatase 120 Total Protein 7.3 Albumin 3.7
[2025-03-14] MEDS: cefTRIAXone 2 GM in SODIUM CHLORIDE 0.9% IV 100 ML 200 ML IVPB (12:10)
[2025-03-14] MEDS: DOXYCYCLINE IV 100 MG in SODIUM CHLORIDE 0.9% IV 100 ML IVPB ×2 (12:10→21:48)
[2025-03-14] MEDS: MONTELUKAST SODIUM 10 MG TABLET PO (21:48)
[2025-03-14] MEDS: ATORVASTATIN 40 MG TABLET 80 MG PO (21:48)
[2025-03-15 06:00] VITALS: BP 143/66; PULSE 103; RESP 18; TEMP 36.8; O2SAT 97
[2025-03-15] MEDS: FLUTICASONE/SALMETEROL 115-21 MCG INHALER 1 PUFF 2 PUFF INHALATION ×2 (07:51→20:29)
[2025-03-15 07:53] VITALS: O2SAT 99
[2025-03-15 09:13] LABS: Anion Gap 14 mmol/L (4-12); Blood Urea Nitrogen 20 mg/dL (7-17); Calcium 10.0 mg/dL (8.4-10.2); Carbon Dioxide 24 mmol/L (22-30); Chloride 102 mmol/L (98-107); Estimated CRCL calculation 8 ml/min; Estimated Glomerular Filt Rate 6; Glucose 104 mg/dL (65-110); Potassium 3.9 mmol/L (3.4-5.0); Sodium 140 mmol/L (137-145)
[2025-03-15] MEDS: ASPIRIN 81 MG ENTERIC TABLET PO (10:56)
[2025-03-15] MEDS: cefTRIAXone 2 GM in SODIUM CHLORIDE 0.9% IV 100 ML 200 ML IVPB (10:56)
--- NOTE | 2025-03-15 11:12 | P.PNNP_ITS ---
Progress Note: A&P Assessment and Plan (1) End stage renal disease: Code(s): N18.6 - End stage renal disease Status: Chronic Assessment and Plan: * HD was uneventful yesterday. * potassium doing well. * volume status looks Good. (2) Altered mental status: Qualifiers: Altered mental status type: disorientation Qualified Code(s): R41.0 - Disorientation, unspecified Code(s): R41.82 - Altered mental status, unspecified Status: Acute Assessment and Plan: * reportedly noted over the last 2 weeks * clinically worse on 03/10 with associated agitation/combative behavior * however, per outpatient dialysis center, her mentation seems to fluctuate even at baseline * but she is usually not combative/uncooperative * CT of brain noted: * no intracranial hemorrhage, mass, or acute infarct * atrophy and chronic white matter changes * related to possible infection(?): * admission UA not suggestive of UTI * however, repeat UA (03/12) noted * questionable pneumonia on CXR * per hospitalist encephalopathy due to pneumonia. It seems worse today. Sodium, calcium, and bicarbonate are okay. Will check TSH, B12 and folate, and a blood gas. Neurology consult has been ordered * on empiric antibiotics (3) Pulmonary edema: Qualifiers: Chronicity: acute Qualified Code(s): J81.0 - Acute pulmonary edema Code(s): J81.1 - Chronic pulmonary edema Status: Acute Assessment and Plan: * as noted by admission CXR: * cardiomegaly with congestive leti and minimal interstitial thickening wh ich is suggestive of cardiac decompensation and pulmonary edema * however, no evidence of respiratory distress or hypoxia * will repeat the chest x-ray. * Echo results noted: * there is normal left ventricular size with hyperdynamic systolic function * left ventricular ejection fraction is visually estimated to be greater than 70% * right ventricle is normal in size and systolic function * no significant valvular abnormalities * fluid removal with dialysis as tolerated . Next treatment on Monday * follow respiratory status (4) Pneumonia: Qualifiers: Laterality: left Lung location: lower lobe of lung Pneumonia type: due to unspecified organism Qualified Code(s): J18.9 - Pneumonia, unspecified organism Code(s): J18.9 - Pneumonia, unspecified organism Status: Acute Assessment and Plan: * some suggestion by admission CXR * follow culture data - negative to date * on ceftriaxone and doxycycline * on evidence of hypoxia or respiratory distress * on no oxygen. (5) HTN (hypertension): Code(s): I10 - Essential (primary) hypertension Status: Acute Assessment and Plan: * systolic 10s to 140s * resumed home medications * (6) Anemia: Code(s): D64.9 - Anemia, unspecified Status: Chronic Assessment and Plan: * due to ESRD * H/H supratherapeutic at this time * holding Epogen for now * follow trend of H/H Subjective Date/time seen: 03/15/25 11:12 Interval history: patient is sleepy today. She has received no more sedative since 9:00 a.m. yesterday before dialysis. Overnight the patient apparently had some spells of anxiety and agitation. Exam Narrative: General: Well-developed female in NAD Heart: normal S1 and S2; no rub Lungs: fairly clear breath sounds. Some decrease at the bases Abdomen: soft, nontender, nondistended, positive bowel sounds Extremities: no edema Skin: no rash or sq nodule Objective Data Vital Signs Vital Signs: Vital Signs - 24 hr 03/14/25 11:15 03/14/25 11:30 03/14/25 11:41 Temperature Pulse Rate 105 H 99 69 Respiratory Rate Blood Pressure 101/63 128/58 L 104/95 H Pulse Oximetry Oxygen Delivery 03/14/25 11:50 03/14/25 20:00 03/14/25 20:22 Temperature 96.7 F L Pulse Rate 98 98 Respiratory Rate 16 16 Blood Pressure 124/62 Pulse Oximetry 100 97 97 Oxygen Delivery Room Air Room Air 03/14/25 22:00 03/15/25 06:00 03/15/25 07:53 Temperature 98.1 F 98.2 F Pulse Rate 104 H 103 H Respiratory Rate 18 18 Blood Pressure 124/66 143/66 H Pulse Oximetry 100 97 99 Oxygen Delivery Room Air Intake/Output Intake/Output: Intake & Output 03/12/25 03/13/25 03/14/25 03/15/25 23:59 23:59 23:59 23:59 Intake Total 100 556 420 Output Total 3851 986 0751 Balance -1450 406 -1180 Meds/Results Medications: Active Medications Generic Name Dose Route Start Last Admin Trade Name Freq PRN Reason Stop Dose Admin Acetaminophen 650 mg 03/10/25 13:39 03/13/25 20:57 Acetaminophen 325 Mg Tablet PO 650 mg Q6H PRN Administration Mild Pain (1-3) or Fever Allopurinol 200 mg 03/11/25 09:00 03/15/25 10:56 Allopurinol 100 Mg Tablet PO 200 mg DAILY ADDISON Administration Amlodipine Besylate 10 mg 03/11/25 09:00 03/15/25 10:55 Amlodipine Besylate 10 Mg Tablet PO 10 mg DAILY ADDISON Administration Aspirin 81 mg 03/11/25 09:00 03/15/25 10:56 Aspirin 81 Mg Enteric Tablet PO 81 mg DAILY ADDISON Administration Atorvastatin Calcium 80 mg 03/11/25 21:00 03/14/25 21:48 Atorvastatin 40 Mg Tablet PO 80 mg HS ADDISON Administration Benzonatate 100 mg 03/10/25 13:39 Benzonatate 100 Mg Capsule PO TID PRN Cough Bisacodyl 10 mg 03/14/25 14:26 Bisacodyl 10 Mg Suppository RECTAL DAILY PRN Constipation Guaifenesin 600 mg 03/10/25 13:39 Guaifenesin 12 Hr 600 Mg Tabcr PO Q12HR PRN Congestion Albumin Human 50 mls @ 999 mls/hr 03/10/25 12:49 Albutein IVPB 04/09/25 12:48 Q10M PRN HYPOTENSION Ceftriaxone Sodium 2 gm/ 100 mls @ 200 mls/hr 03/13/25 09:00 03/15/25 10:56 Sodium Chloride IVPB 200 mls/hr DAILY ADDISON Administration Montelukast Sodium 10 mg 03/11/25 21:00 03/14/25 21:48 Montelukast Sodium 10 Mg Tablet PO 10 mg HS ADDISON Administration Polyethylene Glycol 17 gm 03/14/25 14:26 03/14/25 17:49 Polyethylene Glycol 3350 17 Gm Powd.Pack PO 17 gm DAILY PRN Administration Constipation Fluticasone/Salmeterol 2 puff 03/11/25 08:00 03/15/25 07:51 Fluticasone/Salmeterol 115-21 Mcg Inhaler 1 Puff INHALATION 2 puff Q12HRT ADDISON Administration Radiology Results: ITS Impressions Head CT 03/10/25 07:36 Impression: No intracranial hemorrhage, mass, or acute infarct. Atrophy and chronic white matter changes, as above. Chest X-Ray 03/10/25 10:24 IMPRESSION: Cardiomegaly with congestive leti and minimal interstitial thickening which is suggestive of cardiac decompensation and pulmonary edema. Left basilar atelectasis versus pneumonia with possible. Clinical correlation and follow-up advised. Labs Labs: Laboratory Results - last 24 hr 03/15/25 08:37 Sodium 140 Potassium 3.9 Chloride 102 Carbon Dioxide 24 Anion Gap 14 H BUN 20 H Creatinine 6.91 H Estim Creat Clear Calc 8 Estimated GFR 6 L Glucose 104 Calcium 10.0
[2025-03-15] MEDS: ACETAMINOPHEN 325 MG TABLET 650 MG PO (11:48)
[2025-03-15 12:32] LABS: Alveolar/Arterial O2 Gradient 27.4 mmHg; Fractional Inspired Oxygen 21 %; HCO3 ABG 25.2 mEq/l (22.0-26.0); Oxygen Content ABG 17.6 %vol (16.0-22.0); Oxygen Saturation ABG 95.3 % (95.0-100.0); PCO2 ABG 39.6 mmHg (35.0-45.0); PO2 ABG 74.9 mmHg (80.0-100.0); PO2 FiO2 Ratio Arterial Blood 3.57 %
[2025-03-15 12:33] LABS: Site Drawn RIGHT RADIAL
[2025-03-15 12:34] LABS: Liters per Minute 0.0 LPM; Modified Allen's Test Pass
[2025-03-15 12:34] LABS: Thyroid Stimulating Hormone Reflex 1.130 uIU/mL (0.465-4.68)
[2025-03-15 13:07] LABS: Vitamin B12 914.0 pg/mL (239-931)
[2025-03-15 14:00] VITALS: BP 128/71; PULSE 107; RESP 18; TEMP 37; O2SAT 100
--- NOTE | 2025-03-15 15:00 | PM.IMPN ---
Progress Note: A&P Assessment and Plan (1) Altered mental status: Qualifiers: Altered mental status type: disorientation Qualified Code(s): R41.0 - Disorientation, unspecified Code(s): R41.82 - Altered mental status, unspecified Status: Acute Assessment and Plan: - Head CT: No intracranial hemorrhage, mass, or acute infarct. Atrophy and chronic white matter changes, as above. - UA not suggestive of UTI - possible PNA on CXR, see below. started on abx- will continue - no significant electrolyte derangements, no hypoxia/supplemental O2 requirement, no significant anemia Suspect encephalopathy secondary to PNA. 03/12 - somewhat better today but still confused. will order ua (pt still makes urine) to r/o uti BC so far negative no worsening resp symptoms-so low suspicion for pneumonia continue tx for now 03/13 ua was collected to r/o uti pt/ot ordered 03/14 a little more alert today continue antibiotcs neurology was consulted-awaiting recommendations 03/15 more alert today, no episodes of anxiety (2) Pneumonia: Qualifiers: Laterality: left Lung location: lower lobe of lung Pneumonia type: due to unspecified organism Qualified Code(s): J18.9 - Pneumonia, unspecified organism Code(s): J18.9 - Pneumonia, unspecified organism Status: Acute Assessment and Plan: - CXR: Cardiomegaly with congestive leti and minimal interstitial thickening which is suggestive of cardiac decompensation and pulmonary edema. Left basilar atelectasis versus pneumonia with possible. Clinical correlation and follow-up advised. - started on CAP tx: Ceftriaxone and doxycycline on 03/10 - no MRSA on file, check PCR - supportive care: Tylenol, Mucinex, Tessalon Perles - sputum culture if obtainable - no current supplemental O2 requirement -IS, ambulation pt is fall and aspiration risk continue antibiotics (3) Pulmonary edema: Qualifiers: Chronicity: acute Qualified Code(s): J81.0 - Acute pulmonary edema Code(s): J81.1 - Chronic pulmonary edema Status: Acute Assessment and Plan: - no echo on file, ordered - CXR concerning for cardiomegaly with congestive leti and minimal interstitial thickening which is suggestive of cardiac decompensation and pulmonary edema. - fluid management via dialysis - monitor I&Os and daily weights - trend renal function 03/10 echo: Summary 1. Complete two-dimensional, color flow and Doppler transthoracic echocardiogram is performed. 2. Technically difficult study and patient refuse to complete full study ECHO. 3. In the available views, there is normal left ventricular size with hyperdynamic systolic function. 4. The right ventricle is normal in size and systolic function. 5. There are no significant valvular abnormalities. Left Ventricle The left ventricle is normal in size with hyperdynamic systolic function. There is concentric left ventricular remodeling. The left ventricular ejection fraction is visually estimated to be greater than 70% (4) ESRD on hemodialysis: Code(s): N18.6 - End stage renal disease; Z99.2 - Dependence on renal dialysis Status: Chronic Assessment and Plan: - creatinine 8.64, BUN 18, GFR 5 - nephrology consulted for inpatient HD - dialysis: Mon, Wed, Fri - trend renal function - trend electrolytes, correct as needed 03/12 cr imporved, able to complete dialysis tx and tolerated it well. (5) HTN (hypertension): Code(s): I10 - Essential (primary) hypertension Status: Acute Assessment and Plan: - chronic, currently 152/85 - continue home medications: Amlodipine - monitor Plan Diet: Renal GI Prophylaxis: NA DVT Prophylaxis: SCDs IV fluids: Lines/Tubes: peripheral IV Code Status: full code Time Spent With Patient Time with patient: 25 - 35 minutes Subjective Date/time seen: 03/15/25 15:00 Interval history: Pt is seen and examined. She is up in a chair and more alert today. at a bedisde and states that pt is typically a lot more alert but balance had been pretty bad. She is able to follow commands and appears to be comfortable. Review of Systems Review of Systems: All systems reviewed & are unremarkable except as noted in HPI and below (Limited, altered) Exam Narrative: A/Ox1. +thrill and bruit to graft in the RUE. Const: General: comfortable and no acute distress Other: , female, nontoxic appearance HENMT: Face/Nose/Sinus: Normal nares present Mouth: Yes moist mucous membranes Eyes: General: appearance normal, both eyes and all related structures Sclera: sclerae normal Pupils: Equal, round and reactive pupils present EOM: EOMs intact bilaterally Resp: Effort & Inspection: normal respiratory effort Auscultation: clear to auscultation bilaterally Cardio: Rate: regular rate Rhythm: regular rhythm Other: S1-S2 present without murmur, rub, ectopy GI: Other: Abdomen soft, nondistended, nontender. Normoactive bowel sounds in all quadrants. Skin: General skin exam: normal color and no rashes or lesions noted Wounds: no wounds Neuro: Cranial nerves: Yes Equal, round and reactive pupils present Speech: normal speech Motor exam (neuro): 5/5 motor strength present throughout Sensory Exam: normal sensation Other: A&O x1, somnolent Extrem: General: normal to inspection Other: + thrill and bruit to graft in the left upper extremity Psych: Other: more alert today Objective Data Vital Signs Vital Signs: Vital Signs - 24 hr 03/14/25 20:00 03/14/25 20:22 03/14/25 22:00 Temperature 98.1 F Pulse Rate 98 104 H Respiratory Rate 16 18 Blood Pressure 124/66 Pulse Oximetry 97 97 100 Oxygen Delivery Room Air Room Air 03/15/25 06:00 03/15/25 07:53 03/15/25 13:00 Temperature 98.2 F Pulse Rate 103 H Respiratory Rate 18 Blood Pressure 143/66 H Pulse Oximetry 97 99 Oxygen Delivery Room Air Room Air 03/15/25 13:15 03/15/25 14:00 Temperature 98.6 F Pulse Rate 107 H Respiratory Rate 18 Blood Pressure 128/71 Pulse Oximetry 100 Oxygen Delivery Room Air Intake/Output Intake/Output: Intake & Output 03/12/25 03/13/25 03/14/25 03/15/25 23:59 23:59 23:59 23:59 Intake Total 100 556 420 100 Output Total 2660 174 1377 Balance -1450 406 -1180 100 Meds/Results Medications: Active Medications Generic Name Dose Route Start Last Admin Trade Name Freq PRN Reason Stop Dose Admin Acetaminophen 650 mg 03/10/25 13:39 03/15/25 11:48 Acetaminophen 325 Mg Tablet PO 650 mg Q6H PRN Administration Mild Pain (1-3) or Fever Allopurinol 200 mg 03/11/25 09:00 03/15/25 10:56 Allopurinol 100 Mg Tablet PO 200 mg DAILY ADDISON Administration Amlodipine Besylate 10 mg 03/11/25 09:00 03/15/25 10:55 Amlodipine Besylate 10 Mg Tablet PO 10 mg DAILY ADDISON Administration Aspirin 81 mg 03/11/25 09:00 03/15/25 10:56 Aspirin 81 Mg Enteric Tablet PO 81 mg DAILY ADDISON Administration Atorvastatin Calcium 80 mg 03/11/25 21:00 03/14/25 21:48 Atorvastatin 40 Mg Tablet PO 80 mg HS ADDISON Administration Benzonatate 100 mg 03/10/25 13:39 Benzonatate 100 Mg Capsule PO TID PRN Cough Bisacodyl 10 mg 03/14/25 14:26 Bisacodyl 10 Mg Suppository RECTAL DAILY PRN Constipation Guaifenesin 600 mg 03/10/25 13:39 Guaifenesin 12 Hr 600 Mg Tabcr PO Q12HR PRN Congestion Albumin Human 50 mls @ 999 mls/hr 03/10/25 12:49 Albutein IVPB 04/09/25 12:48 Q10M PRN HYPOTENSION Ceftriaxone Sodium 2 gm/ 100 mls @ 200 mls/hr 03/13/25 09:00 03/15/25 10:56 Sodium Chloride IVPB 200 mls/hr DAILY ADDISON Administration Montelukast Sodium 10 mg 03/11/25 21:00 03/14/25 21:48 Montelukast Sodium 10 Mg Tablet PO 10 mg HS ADDISON Administration Polyethylene Glycol 17 gm 03/14/25 14:26 03/14/25 17:49 Polyethylene Glycol 3350 17 Gm Powd.Pack PO 17 gm DAILY PRN Administration Constipation Fluticasone/Salmeterol 2 puff 03/11/25 08:00 03/15/25 07:51 Fluticasone/Salmeterol 115-21 Mcg Inhaler 1 Puff INHALATION 2 puff Q12HRT ADDISON Administration Radiology Results: ITS Impressions Head CT 03/10/25 07:36 Impression: No intracranial hemorrhage, mass, or acute infarct. Atrophy and chronic white matter changes, as above. Chest X-Ray 03/10/25 10:24 IMPRESSION: Cardiomegaly with congestive leti and minimal interstitial thickening which is suggestive of cardiac decompensation and pulmonary edema. Left basilar atelectasis versus pneumonia with possible. Clinical correlation and follow-up advised. Labs Labs: Laboratory Results - last 24 hr 03/15/25 03/15/25 08:37 12:26 Puncture Site Right radial ABG pH 7.421 ABG pCO2 39.6 ABG pO2 74.9 L ABG PO2/FiO2 Ratio 3.57 ABG HCO3 25.2 ABG O2 Saturation 95.3 ABG O2 Content 17.6 ABG Base Excess 0.8 A-a Gradient 27.4 Oxyhemoglobin 94.2 Total Hemoglobin 13.3 O2 Delivery Device Room air O2 Liters/Min 0.0 FiO2 21 Sodium 140 Potassium 3.9 Chloride 102 Carbon Dioxide 24 Anion Gap 14 H BUN 20 H Creatinine 6.91 H Estim Creat Clear Calc 8 Estimated GFR 6 L Glucose 104 Calcium 10.0 Vitamin B12 914.0 Folate 7.0 TSH (Reflex) 1.130 Quality VTE Prophylaxis VTE prophylaxis: mechanical ordered
[2025-03-15] MEDS: ATORVASTATIN 40 MG TABLET 80 MG PO (20:10)
[2025-03-15 20:30] VITALS: PULSE 88; RESP 16; O2SAT 97
[2025-03-15 20:36] VITALS: PULSE 88; RESP 16
[2025-03-16 06:00] VITALS: BP 119/74; PULSE 65; RESP 16; TEMP 36.9; O2SAT 97
[2025-03-16 07:21] LABS: Anion Gap 16 mmol/L (4-12); Blood Urea Nitrogen 31 mg/dL (7-17); Calcium 10.6 mg/dL (8.4-10.2); Carbon Dioxide 23 mmol/L (22-30); Chloride 98 mmol/L (98-107); Estimated CRCL calculation 6 ml/min; Estimated Glomerular Filt Rate 4; Glucose 105 mg/dL (65-110); Potassium 4.0 mmol/L (3.4-5.0); Sodium 137 mmol/L (137-145)
[2025-03-16] MEDS: FLUTICASONE/SALMETEROL 115-21 MCG INHALER 1 PUFF 2 PUFF INHALATION ×2 (07:46→20:56)
[2025-03-16 07:49] VITALS: O2SAT 97
[2025-03-16] MEDS: cefTRIAXone 2 GM in SODIUM CHLORIDE 0.9% IV 100 ML 200 ML IVPB (08:42)
[2025-03-16] MEDS: ASPIRIN 81 MG ENTERIC TABLET PO (08:42)
[2025-03-16] MEDS: ACETAMINOPHEN 325 MG TABLET 650 MG PO (08:53)
--- NOTE | 2025-03-16 08:55 | P.PNNP_ITS ---
Progress Note: A&P Assessment and Plan (1) End stage renal disease: Code(s): N18.6 - End stage renal disease Status: Chronic Assessment and Plan: * HD was uneventful Monday * Will order more dialysis tomorrow * potassium doing well. * volume status looks okay. (2) Altered mental status: Qualifiers: Altered mental status type: disorientation Qualified Code(s): R41.0 - Disorientation, unspecified Code(s): R41.82 - Altered mental status, unspecified Status: Acute Assessment and Plan: * reportedly noted over the last 2 weeks * clinically worse on 03/10 with associated agitation/combative behavior * however, per outpatient dialysis center, her mentation seems to fluctuate even at baseline * but she is usually not combative/uncooperative * CT of brain noted: * no intracranial hemorrhage, mass, or acute infarct * atrophy and chronic white matter changes * related to possible infection(?): * admission UA not suggestive of UTI * however, repeat UA (03/12) noted * questionable pneumonia on CXR * per hospitalist encephalopathy due to pneumonia. It seems worse today. Sodium, calcium, and bicarbonate are okay. B12, folate, and TSH are all okay. Blood gas looked okay. Oxygen was a little bit low but on O2 sat reading she is generally running between 97 and 100. Neurology consult has been ordered. Await the visit. * on empiric antibiotics (3) Pulmonary edema: Qualifiers: Chronicity: acute Qualified Code(s): J81.0 - Acute pulmonary edema Code(s): J81.1 - Chronic pulmonary edema Status: Acute Assessment and Plan: * as noted by admission CXR: * cardiomegaly with congestive leti and minimal interstitial thickening which is suggestive of cardiac decompensation and pulmonary edema * however, no evidence of respiratory distress or hypoxia * will repeat the chest x-ray today. * Echo results noted: * there is normal left ventricular size with hyperdynamic systolic function * left ventricular ejection fraction is visually estimated to be greater than 70% * right ventricle is normal in size and systolic function * no significant valvular abnormalities * fluid removal with dialysis as tolerated . Next treatment tomorrow * follow respiratory status (4) Pneumonia: Qualifiers: Laterality: left Lung location: lower lobe of lung Pneumonia type: due to unspecified organism Qualified Code(s): J18.9 - Pneumonia, unspecified organism Code(s): J18.9 - Pneumonia, unspecified organism Status: Acute Assessment and Plan: * some suggestion by admission CXR * follow culture data - negative to date * on ceftriaxone and doxycycline * on evidence of hypoxia or respiratory distress * on no oxygen. (5) HTN (hypertension): Code(s): I10 - Essential (primary) hypertension Status: Acute Assessment and Plan: * systolic 110s to 140s * resumed home medications (6) Anemia: Code(s): D64.9 - Anemia, unspecified Status: Chronic Assessment and Plan: * due to ESRD * H/H supratherapeutic at this time * holding Epogen for now * follow trend of H/H Subjective Date/time seen: 03/16/25 08:55 Interval history: Patient is more awake today. She interacts but is confused. Exam Narrative: General: Well-developed female in NAD Heart: normal S1 and S2; no rub or gallop Lungs: Clear bilaterally Abdomen: soft, nontender, nondistended, positive bowel sounds Extremities: no edema Skin: no rash Objective Data Vital Signs Vital Signs: Vital Signs - 24 hr 03/15/25 13:00 03/15/25 13:15 03/15/25 14:00 Temperature 98.6 F Pulse Rate 107 H Respiratory Rate 18 Blood Pressure 128/71 Pulse Oximetry 100 Oxygen Delivery Room Air Room Air 03/15/25 20:00 03/15/25 20:30 03/15/25 20:36 Temperature Pulse Rate 88 88 Respiratory Rate 16 16 Blood Pressure Pulse Oximetry 97 Oxygen Delivery Room Air Room Air 03/16/25 06:00 03/16/25 07:49 Temperature 98.4 F Pulse Rate 65 Respiratory Rate 16 Blood Pressure 119/74 Pulse Oximetry 97 97 Oxygen Delivery Room Air Intake/Output Intake/Output: Intake & Output 03/13/25 03/14/25 03/15/25 03/16/25 23:59 23:59 23:59 23:59 Intake Total 556 420 465 130 Output Total 150 1600 0 Balance 406 -1180 465 130 Meds/Results Medications: Active Medications Generic Name Dose Route Start Last Admin Trade Name Freq PRN Reason Stop Dose Admin Acetaminophen 650 mg 03/10/25 13:39 03/16/25 08:53 Acetaminophen 325 Mg Tablet PO 650 mg Q6H PRN Administration Mild Pain (1-3) or Fever Allopurinol 200 mg 03/11/25 09:00 03/16/25 08:41 Allopurinol 100 Mg Tablet PO 200 mg DAILY ADDISON Administration Amlodipine Besylate 10 mg 03/11/25 09:00 03/16/25 08:42 Amlodipine Besylate 10 Mg Tablet PO 10 mg DAILY ADDISON Administration Aspirin 81 mg 03/11/25 09:00 03/16/25 08:42 Aspirin 81 Mg Enteric Tablet PO 81 mg DAILY ADDISON Administration Atorvastatin Calcium 80 mg 03/11/25 21:00 03/15/25 20:10 Atorvastatin 40 Mg Tablet PO 80 mg HS ADDISON Administration Benzonatate 100 mg 03/10/25 13:39 Benzonatate 100 Mg Capsule PO TID PRN Cough Bisacodyl 10 mg 03/14/25 14:26 Bisacodyl 10 Mg Suppository RECTAL DAILY PRN Constipation Guaifenesin 600 mg 03/10/25 13:39 Guaifenesin 12 Hr 600 Mg Tabcr PO Q12HR PRN Congestion Albumin Human 50 mls @ 999 mls/hr 03/10/25 12:49 Albutein IVPB 04/09/25 12:48 Q10M PRN HYPOTENSION Ceftriaxone Sodium 2 gm/ 100 mls @ 200 mls/hr 03/13/25 09:00 03/16/25 08:42 Sodium Chloride IVPB 200 mls/hr DAILY ADDISON Administration Montelukast Sodium 10 mg 03/11/25 21:00 03/15/25 20:27 Montelukast Sodium 10 Mg Tablet PO Not Given [facility] Polyethylene Glycol 17 gm 03/14/25 14:26 03/14/25 17:49 Polyethylene Glycol 3350 17 Gm Powd.Pack PO 17 gm DAILY PRN Administration Constipation Fluticasone/Salmeterol 2 puff 03/11/25 08:00 03/16/25 07:46 Fluticasone/Salmeterol 115-21 Mcg Inhaler 1 Puff INHALATION 2 puff Q12HRT ADDISON Administration Radiology Results: ITS Impressions Head CT 03/10/25 07:36 Impression: No intracranial hemorrhage, mass, or acute infarct. Atrophy and chronic white matter changes, as above. Chest X-Ray 03/10/25 10:24 IMPRESSION: Cardiomegaly with congestive leti and minimal interstitial thickening which is suggestive of cardiac decompensation and pulmonary edema. Left basilar atelectasis versus pneumonia with possible. Clinical correlation and follow-up advised. Labs Labs: Laboratory Results - last 24 hr 03/15/25 03/15/25 03/16/25 08:37 12:26 06:43 Puncture Site Right radial ABG pH 7.421 ABG pCO2 39.6 ABG pO2 74.9 L ABG PO2/FiO2 Ratio 3.57 ABG HCO3 25.2 ABG O2 Saturation 95.3 ABG O2 Content 17.6 ABG Base Excess 0.8 A-a Gradient 27.4 Oxyhemoglobin 94.2 Total Hemoglobin 13.3 O2 Delivery Device Room air O2 Liters/Min 0.0 FiO2 21 Sodium 140 137 Potassium 3.9 4.0 Chloride 102 98 Carbon Dioxide 24 23 Anion Gap 14 H 16 H BUN 20 H 31 H D Creatinine 6.91 H 9.03 H Estim Creat Clear Calc 8 6 Estimated GFR 6 L 4 L Glucose 104 105 Calcium 10.0 10.6 H Vitamin B12 914.0 Folate 7.0 TSH (Reflex) 1.130
--- NOTE | 2025-03-16 08:58 | P.CONNEU_ITS ---
Assessment and Plan Assessment and plan (1) End stage renal disease: Code(s): N18.6 - End stage renal disease Status: Chronic (2) HTN (hypertension): Code(s): I10 - Essential (primary) hypertension Status: Acute (3) Altered mental status: Qualifiers: Altered mental status type: disorientation Qualified Code(s): R41.0 - Disorientation, unspecified Code(s): R41.82 - Altered mental status, unspecified Status: Acute Plan 1. End-stage renal disease 2. Fluctuating mental status but compared to the initial exam yesterday when her happened to be and today he is not the exam remains stable she is more coherent and follows the instructions very well most likely her mental status related to the chronic renal disease, an EEG can be obtained to rule out the possibility of the seizure med is extremely unlikely. Consult date: 03/16/25 HPI: Emily Ibrahim is a 64 year old female Admitted to the hospital through the emergency room with the ongoing problems of end-stage renal disease requiring dialysis on Monday and Monday but on the day of presentation to the ER patient was increasingly confused with no other problem though she was un happy to be in the emergency room. Patient is known to be allergic to penicillin. On initial exam in the emergency room she was reportedly uncooperative, her vital signs were normal except blood pressure 170/80, CBC was normal with hemoglobin 10.8 on the low side, BMP with BUN of 18 and creatinine of 8.64, master scan normal initial CT scan of the head was negative for the bleed or any major stroke but there was atrophy with chronic white matter changes, she was admitted to the floor with subsequent documentation of poor insight and judgment, she was continued on all her medications which included allopurinol, amlodipine, aspirin, atorvastatin, and started on ceftriaxone 2g Q 24hours IV piggyback, she also received p.r.n. medications, pharmacometrician was consulted because of the end- stage renal disease who suggested to continue the renal dialysis on the same schedule and considered the possibility of change in the mental status related to the possible infections , she was noted to have agitated behavior, her echocardiogram documented no significant abnormalities considering her hemoglobin and hematocrit supratherapeutic Epogen was held encephalopathy was attributed to pneumonia but considering the persistence of the confusion neurology consultation has been obtained. Most recent lab reveals normal CBC, normal blood gases with ABG PO2 74.9, BUN 31 with creatinine 9.03 definitely increased over the last several day Review of Systems 2 Review of Systems: All systems reviewed & are unremarkable except as noted in HPI and below [facility] Past Medical History Medical History HLD (hyperlipidemia) HTN (hypertension) Gout ESRD on hemodialysis Social History Social History Smoking status: Unknown if ever smoked Spiritual care concerns: No Meds Home Medications and Allergies Home Medications ?Medication ?Instructions ?Recorded ?Confirmed ?Type allopurinol 100 mg tablet 200 mg PO DAILY 03/10/25 03/10/25 History amlodipine 10 mg tablet 10 mg PO DAILY 03/10/25 03/10/25 History aspirin 81 mg tablet,delayed 81 mg PO DAILY 03/10/25 03/10/25 History release atorvastatin 80 mg tablet 80 mg PO QPM 03/10/25 03/10/25 History fluticasone 250 mcg-salmeterol 50 1 inh inhalation Q12H 03/10/25 03/10/25 History mcg/dose blistr powdr for inhalation (Wixela Inhub) montelukast 10 mg tablet 10 mg PO QPM 03/10/25 03/10/25 History Allergies Allergy/AdvReac Type Severity Reaction Status Date / Time Penicillins Allergy Unknown Verified 03/10/25 14:57 Vital Signs Vital Signs - 24 hr 03/15/25 13:00 03/15/25 13:15 03/15/25 14:00 Temperature 37.0 C Pulse Rate 107 H Respiratory Rate 18 Blood Pressure 128/71 Pulse Oximetry 100 Oxygen Delivery Room Air Room Air 03/15/25 20:00 03/15/25 20:30 03/15/25 20:36 Temperature Pulse Rate 88 88 Respiratory Rate 16 16 Blood Pressure Pulse Oximetry 97 Oxygen Delivery Room Air Room Air 03/16/25 06:00 03/16/25 07:49 Temperature 36.9 C Pulse Rate 65 Respiratory Rate 16 Blood Pressure 119/74 Pulse Oximetry 97 97 Oxygen Delivery Room Air Exam 2 Narrative: Exam today revealed her to be awake alert cooperative in no obvious acute distress, her speech was not dysphasic not dysarthric not dysphonic, she was comfortable instructions, neck was supple, no cervical bruit, heart was regular with no murmur, lungs were clear,: Soft nontender with normal bowel sounds and flabby, neurologically she was awake alert she knew that she was in the hospital her speech was not dysphasic not dysarthric not dysphonic, she was aware of being in the hospital but she was unable to say anything further, pupils round regular feels the vision were full in all 4 quadrants to finger confrontation extraocular movements are full with no nystagmus facial grimace was symmetrical tongue moves in the oral cavity motor examination revealed her to have decreased strength in both upper and lower extremities not localized to proximal or distal muscles only reflexes were sluggish and plantar responses were downgoing had difficulties in performing heel to knee to johns. Results Labs 03/16/25 06:36 03/16/25 06:43 Labs: BMP 03/15/25 03/16/25 08:37 06:43 Sodium 140 137 Potassium 3.9 4.0 Chloride 102 98 Carbon Dioxide 24 23 BUN 20 H 31 H D Creatinine 6.91 H 9.03 H Glucose 104 105 Calcium 10.0 10.6 H
--- NOTE | 2025-03-16 10:22 | PM.IMPN ---
Progress Note: A&P Assessment and Plan (1) Altered mental status: Qualifiers: Altered mental status type: disorientation Qualified Code(s): R41.0 - Disorientation, unspecified Code(s): R41.82 - Altered mental status, unspecified Status: Acute Assessment and Plan: - Head CT: No intracranial hemorrhage, mass, or acute infarct. Atrophy and chronic white matter changes, as above. - UA not suggestive of UTI - possible PNA on CXR, see below. started on abx- will continue - no significant electrolyte derangements, no hypoxia/supplemental O2 requirement, no significant anemia Suspect encephalopathy secondary to PNA. 03/12 - somewhat better today but still confused. will order ua (pt still makes urine) to r/o uti BC so far negative no worsening resp symptoms-so low suspicion for pneumonia continue tx for now 03/13 ua was collected to r/o uti pt/ot ordered 03/14 a little more alert today continue antibiotcs neurology was consulted-awaiting recommendations 03/15 more alert today, no episodes of anxiety 03/16 no acute events, still confused but able to follow some commands intermittently completed treatment for pneumonia, UA didnot reflex in culture. Will obtain BC to rule out any bacteremia. But with pt finishing up antibiotic, mental status should be improving and it is not. Neurology was consulted. (2) Pneumonia: Qualifiers: Laterality: left Lung location: lower lobe of lung Pneumonia type: due to unspecified organism Qualified Code(s): J18.9 - Pneumonia, unspecified organism Code(s): J18.9 - Pneumonia, unspecified organism Status: Acute Assessment and Plan: - CXR: Cardiomegaly with congestive leti and minimal interstitial thickening which is suggestive of cardiac decompensation and pulmonary edema. Left basilar atelectasis versus pneumonia with possible. Clinical correlation and follow-up advised. - started on CAP tx: Ceftriaxone and doxycycline on 03/10 - no MRSA on file, check PCR - supportive care: Tylenol, Mucinex, Tessalon Perles - sputum culture if obtainable - no current supplemental O2 requirement -IS, ambulation pt is fall and aspiration risk continue antibiotics completed antibiotic tx (3) Pulmonary edema: Qualifiers: Chronicity: acute Qualified Code(s): J81.0 - Acute pulmonary edema Code(s): J81.1 - Chronic pulmonary edema Status: Acute Assessment and Plan: - no echo on file, ordered - CXR concerning for cardiomegaly with congestive leti and minimal interstitial thickening which is suggestive of cardiac decompensation and pulmonary edema. - fluid management via dialysis - monitor I&Os and daily weights - trend renal function 03/10 echo: Summary 1. Complete two-dimensional, color flow and Doppler transthoracic echocardiogram is performed. 2. Technically difficult study and patient refuse to complete full study ECHO. 3. In the available views, there is normal left ventricular size with hyperdynamic systolic function. 4. The right ventricle is normal in size and systolic function. 5. There are no significant valvular abnormalities. Left Ventricle The left ventricle is normal in size with hyperdynamic systolic function. There is concentric left ventricular remodeling. The left ventricular ejection fraction is visually estimated to be greater than 70% (4) ESRD on hemodialysis: Code(s): N18.6 - End stage renal disease; Z99.2 - Dependence on renal dialysis Status: Chronic Assessment and Plan: - creatinine 8.64, BUN 18, GFR 5 - nephrology consulted for inpatient HD - dialysis: Mon, Wed, Fri - trend renal function - trend electrolytes, correct as needed 03/12 cr imporved, able to complete dialysis tx and tolerated it well. nephrology following (5) HTN (hypertension): Code(s): I10 - Essential (primary) hypertension Status: Acute Assessment and Plan: - chronic, currently 152/85 - continue home medications: Amlodipine - monitor Plan Diet: Renal GI Prophylaxis: NA DVT Prophylaxis: SCDs IV fluids: Lines/Tubes: peripheral IV Code Status: full code Time Spent With Patient Time with patient: 25 - 35 minutes Subjective Date/time seen: 03/16/25 10:22 Interval history: Pt is seen and examined today. She is more awake and interacts a bit more but still confused. NO BM-getting miralax. Eating ok with help. Neurology consulted for AMS. Review of Systems Review of Systems: All systems reviewed & are unremarkable except as noted in HPI and below (Limited, altered) Exam Narrative: A/Ox1. +thrill and bruit to graft in the RUE. resting in bed Const: General: comfortable and no acute distress Other: , female, nontoxic appearance HENMT: Face/Nose/Sinus: Normal nares present Mouth: Yes moist mucous membranes Eyes: General: appearance normal, both eyes and all related structures Sclera: sclerae normal Pupils: Equal, round and reactive pupils present EOM: EOMs intact bilaterally Resp: Effort & Inspection: normal respiratory effort Auscultation: diminished lung sounds Cardio: Rate: regular rate Rhythm: regular rhythm Other: S1-S2 present without murmur, rub, ectopy GI: GI Palp: Yes Soft to palpation Auscultation: normal bowel sounds Other: Abdomen soft, nondistended, nontender. Normoactive bowel sounds in all quadrants. Skin: General skin exam: normal color and no rashes or lesions noted Wounds: no wounds Neuro: Cranial nerves: Yes Equal, round and reactive pupils present Speech: normal speech Motor exam (neuro): 5/5 motor strength present throughout Sensory Exam: normal sensation Other: A&O x1, somnolent Extrem: General: normal to inspection Other: + thrill and bruit to graft in the left upper extremity Psych: Other: more alert today, still confused Objective Data Vital Signs Vital Signs: Vital Signs - 24 hr 03/15/25 13:00 03/15/25 13:15 03/15/25 14:00 Temperature 98.6 F Pulse Rate 107 H Respiratory Rate 18 Blood Pressure 128/71 Pulse Oximetry 100 Oxygen Delivery Room Air Room Air 03/15/25 20:00 03/15/25 20:30 03/15/25 20:36 Temperature Pulse Rate 88 88 Respiratory Rate 16 16 Blood Pressure Pulse Oximetry 97 Oxygen Delivery Room Air Room Air 03/16/25 06:00 03/16/25 07:49 Temperature 98.4 F Pulse Rate 65 Respiratory Rate 16 Blood Pressure 119/74 Pulse Oximetry 97 97 Oxygen Delivery Room Air Intake/Output Intake/Output: Intake & Output 03/13/25 03/14/25 03/15/25 03/16/25 23:59 23:59 23:59 23:59 Intake Total 556 420 465 130 Output Total 150 1600 0 Balance 406 -1180 465 130 Meds/Results Medications: Active Medications Generic Name Dose Route Start Last Admin Trade Name Freq PRN Reason Stop Dose Admin Acetaminophen 650 mg 03/10/25 13:39 03/16/25 08:53 Acetaminophen 325 Mg Tablet PO 650 mg Q6H PRN Administration Mild Pain (1-3) or Fever Allopurinol 200 mg 03/11/25 09:00 03/16/25 08:41 Allopurinol 100 Mg Tablet PO 200 mg DAILY ADDISON Administration Amlodipine Besylate 10 mg 03/11/25 09:00 03/16/25 08:42 Amlodipine Besylate 10 Mg Tablet PO 10 mg DAILY ADDISON Administration Aspirin 81 mg 03/11/25 09:00 03/16/25 08:42 Aspirin 81 Mg Enteric Tablet PO 81 mg DAILY ADDISON Administration Atorvastatin Calcium 80 mg 03/11/25 21:00 03/15/25 20:10 Atorvastatin 40 Mg Tablet PO 80 mg HS ADDISON Administration Benzonatate 100 mg 03/10/25 13:39 Benzonatate 100 Mg Capsule PO TID PRN Cough Bisacodyl 10 mg 03/14/25 14:26 Bisacodyl 10 Mg Suppository RECTAL DAILY PRN Constipation Guaifenesin 600 mg 03/10/25 13:39 Guaifenesin 12 Hr 600 Mg Tabcr PO Q12HR PRN Congestion Albumin Human 50 mls @ 999 mls/hr 03/10/25 12:49 Albutein IVPB 04/09/25 12:48 Q10M PRN HYPOTENSION Ceftriaxone Sodium 2 gm/ 100 mls @ 200 mls/hr 03/13/25 09:00 03/16/25 08:42 Sodium Chloride IVPB 200 mls/hr DAILY ADDISON Administration Albumin Human 50 mls @ 999 mls/hr 03/16/25 08:56 Albutein IVPB 03/17/25 08:55 Q10M PRN HYPOTENSION Montelukast Sodium 10 mg 03/11/25 21:00 03/15/25 20:27 Montelukast Sodium 10 Mg Tablet PO Not Given HS ADDISON Polyethylene Glycol 17 gm 03/14/25 14:26 03/14/25 17:49 Polyethylene Glycol 3350 17 Gm Powd.Pack PO 17 gm DAILY PRN Administration Constipation Fluticasone/Salmeterol 2 puff 03/11/25 08:00 03/16/25 07:46 Fluticasone/Salmeterol 115-21 Mcg Inhaler 1 Puff INHALATION 2 puff Q12HRT ADDISON Administration Radiology Results: ITS Impressions Head CT 03/10/25 07:36 Impression: No intracranial hemorrhage, mass, or acute infarct. Atrophy and chronic white matter changes, as above. Chest X-Ray 03/16/25 09:51 Impression: Possible mild bibasilar pulmonary edema. Consider pneumonia in the left lung base. Labs Labs: Laboratory Results - last 24 hr 03/15/25 03/15/25 03/16/25 08:37 12:26 06:43 Puncture Site Right radial ABG pH 7.421 ABG pCO2 39.6 ABG pO2 74.9 L ABG PO2/FiO2 Ratio 3.57 ABG HCO3 25.2 ABG O2 Saturation 95.3 ABG O2 Content 17.6 ABG Base Excess 0.8 A-a Gradient 27.4 Oxyhemoglobin 94.2 Total Hemoglobin 13.3 O2 Delivery Device Room air O2 Liters/Min 0.0 FiO2 21 Sodium 137 Potassium 4.0 Chloride 98 Carbon Dioxide 23 Anion Gap 16 H BUN 31 H D Creatinine 9.03 H Estim Creat Clear Calc 6 Estimated GFR 4 L Glucose 105 Calcium 10.6 H Vitamin B12 914.0 Folate 7.0 TSH (Reflex) 1.130 Quality VTE Prophylaxis VTE prophylaxis: mechanical ordered
[2025-03-16 10:59] LABS: Hematocrit 43.3 % (37.0-47.0); Hemoglobin 13.3 g/dL (12.0-15.0); Mean Corpuscular HGB Conc 30.7 g/dl (32-36); Mean Corpuscular Hemoglobin 26.8 pg (26-34); Mean Corpuscular Volume 87.3 fl (80-100); Platelet Count Result 298 k/mm3 (150-375); Red Blood Count 4.96 M/mm3 (4.2-5.4); White Blood Count 8.1 K/mm3 (4.5-10.0)
[2025-03-16 13:24] VITALS: BP 147/93; PULSE 102; RESP 18; O2SAT 98
[2025-03-16 20:03] VITALS: O2SAT 98
[2025-03-16 20:21] VITALS: BP 152/82; PULSE 105; RESP 20; TEMP 36.4; O2SAT 98
[2025-03-16] MEDS: MONTELUKAST SODIUM 10 MG TABLET PO (20:28)
[2025-03-16] MEDS: ATORVASTATIN 40 MG TABLET 80 MG PO (20:28)
[2025-03-16 21:00] VITALS: PULSE 105
[2025-03-17] VITALS (26 sets, daily range): BP systolic 115–175; BP diastolic 62–98; PULSE 103–123; RESP 16–24; TEMP 36.4–37.7; O2SAT 96–100
[2025-03-17 05:21] LABS: Hematocrit 43.8 % (37.0-47.0); Hemoglobin 13.4 g/dL (12.0-15.0); Mean Corpuscular HGB Conc 30.6 g/dl (32-36); Mean Corpuscular Hemoglobin 26.0 pg (26-34); Mean Corpuscular Volume 84.9 fl (80-100); Platelet Count Result 275 k/mm3 (150-375); Red Blood Count 5.16 M/mm3 (4.2-5.4); White Blood Count 7.6 K/mm3 (4.5-10.0)
[2025-03-17 05:42] LABS: Albumin Level 4.1 g/dL (3.5-5.1); Anion Gap 17 mmol/L (4-12); Blood Urea Nitrogen 39 mg/dL (7-17); Calcium 10.4 mg/dL (8.4-10.2); Carbon Dioxide 20 mmol/L (22-30); Chloride 102 mmol/L (98-107); Estimated CRCL calculation 5 ml/min; Estimated Glomerular Filt Rate 4; Glucose 113 mg/dL (65-110); Potassium 4.2 mmol/L (3.4-5.0); Sodium 139 mmol/L (137-145)
--- NOTE | 2025-03-17 09:00 | PCOTNOTE ---
The patient treatment was not able to be completed on [] due to []. Will plan to continue treatment per plan of care.
--- NOTE | 2025-03-17 09:00 | PCOTNOTE ---
The patient treatment was not able to be completed Out of the room for HD. Will plan to continue treatment per plan of care.
--- NOTE | 2025-03-17 09:30 | PCPTNOTE ---
Attempted to see patient for PT, however patient was out of the room for dialysis.
--- NOTE | 2025-03-17 09:57 | P.PNNP_ITS ---
Progress Note: A&P Assessment and Plan (1) End stage renal disease: Code(s): N18.6 - End stage renal disease Status: Chronic Assessment and Plan: * HD under way * potassium doing well. * volume status looks okay. (2) Altered mental status: Qualifiers: Altered mental status type: disorientation Qualified Code(s): R41.0 - Disorientation, unspecified Code(s): R41.82 - Altered mental status, unspecified Status: Acute Assessment and Plan: * reportedly noted over the last 2 weeks * clinically worse on 03/10 with associated agitation/combative behavior * however, per outpatient dialysis center, her mentation seems to fluctuate even at baseline * but she is usually not combative/uncooperative * CT of brain noted: * no intracranial hemorrhage, mass, or acute infarct * atrophy and chronic white matter changes * related to possible infection(?): * admission UA not suggestive of UTI * however, repeat UA (03/12) noted * questionable pneumonia on CXR * per hospitalist encephalopathy due to pneumonia. It seems worse today. Sodium, calcium, and bicarbonate are okay. B12, folate, and TSH are all okay. Blood gas looked okay. Oxygen was a little bit low but on O2 sat reading she is generally running between 97 and 100. Neurology consult has been ordered. Await the visit. * on empiric antibiotics * the patient is well dialyzed and ESRD should not contribute to her altered mental status * neurology saw the patient. (3) Pulmonary edema: Qualifiers: Chronicity: acute Qualified Code(s): J81.0 - Acute pulmonary edema Code(s): J81.1 - Chronic pulmonary edema Status: Acute Assessment and Plan: * as noted by admission CXR: * cardiomegaly with congestive leti and minimal interstitial thickening which is suggestive of cardiac decompensation and pulmonary edema * however, no evidence of respiratory distress or hypoxia * will repeat the chest x-ray today. * Echo results noted: * there is normal left ventricular size with hyperdynamic systolic function * left ventricular ejection fraction is visually estimated to be greater than 70% * right ventricle is normal in size and systolic function * no significant valvular abnormalities * chest x-ray shows a little bit of fluid * will remove extra fluid on dialysis today. I talked with the nurse to increase fluid removal (4) Pneumonia: Qualifiers: Laterality: left Lung location: lower lobe of lung Pneumonia type: due to unspecified organism Qualified Code(s): J18.9 - Pneumonia, unspecified organism Code(s): J18.9 - Pneumonia, unspecified organism Status: Acute Assessment and Plan: * some suggestion by admission CXR * follow culture data - negative to date * on ceftriaxone and doxycycline * on evidence of hypoxia or respiratory distress * on no oxygen. (5) HTN (hypertension): Code(s): I10 - Essential (primary) hypertension Status: Acute Assessment and Plan: * systolic 130s to 160s. * removing fluid should help * resumed home medications (6) Anemia: Code(s): D64.9 - Anemia, unspecified Status: Chronic Assessment and Plan: * due to ESRD * H/H supratherapeutic at this time * holding Epogen for now * hemoglobin 13.4 Subjective Date/time seen: 03/17/25 09:57 Interval history: patient is not interactive. Eyes open and occasionally regards examiner but does not talk. Patient is on dialysis and tolerating it well. The patient was seen at 9:50 a.m. Exam Narrative: General: Well-developed female in NAD Heart: normal S1 and S2; no rub or gallop Lungs: Clear bilaterally Abdomen: soft, nontender, nondistended, positive bowel sounds Extremities: no edema Skin: no rash Objective Data Vital Signs Vital Signs: Vital Signs - 24 hr 03/16/25 13:24 03/16/25 20:00 03/16/25 20:03 Temperature Pulse Rate 102 H Respiratory Rate 18 Blood Pressure 147/93 H Pulse Oximetry 98 98 Oxygen Delivery Room Air Room Air 03/16/25 20:21 03/16/25 21:00 03/17/25 04:08 Temperature 97.6 F 97.6 F Pulse Rate 105 H 105 H 103 H Respiratory Rate 20 18 Blood Pressure 152/82 H 145/76 H Pulse Oximetry 98 99 Oxygen Delivery 03/17/25 08:50 03/17/25 09:03 03/17/25 09:15 Temperature 99 F Pulse Rate 113 H 111 H 108 H Respiratory Rate 24 H Blood Pressure 169/93 H 165/98 H 175/96 H Pulse Oximetry 98 Oxygen Delivery 03/17/25 09:30 Temperature Pulse Rate 109 H Respiratory Rate Blood Pressure 143/93 H Pulse Oximetry Oxygen Delivery Intake/Output Intake/Output: Intake & Output 03/14/25 03/15/25 03/16/25 03/17/25 23:59 23:59 23:59 23:59 Intake Total 420 465 305 0 Output Total 1600 0 0 Balance -1180 465 305 0 Meds/Results Medications: Active Medications Generic Name Dose Route Start Last Admin Trade Name Freq PRN Reason Stop Dose Admin Acetaminophen 650 mg 03/10/25 13:39 03/16/25 08:53 Acetaminophen 325 Mg Tablet PO 650 mg Q6H PRN Administration Mild Pain (1-3) or Fever Allopurinol 200 mg 03/11/25 09:00 03/16/25 08:41 Allopurinol 100 Mg Tablet PO 200 mg DAILY ADDISON Administration Amlodipine Besylate 10 mg 03/11/25 09:00 03/16/25 08:42 Amlodipine Besylate 10 Mg Tablet PO 10 mg DAILY ADDISON Administration Aspirin 81 mg 03/11/25 09:00 03/16/25 08:42 Aspirin 81 Mg Enteric Tablet PO 81 mg DAILY ADDISON Administration Atorvastatin Calcium 80 mg 03/11/25 21:00 03/16/25 20:28 Atorvastatin 40 Mg Tablet PO 80 mg HS ADDISON Administration Benzonatate 100 mg 03/10/25 13:39 Benzonatate 100 Mg Capsule PO TID PRN Cough Bisacodyl 10 mg 03/14/25 14:26 Bisacodyl 10 Mg Suppository RECTAL DAILY PRN Constipation Guaifenesin 600 mg 03/10/25 13:39 Guaifenesin 12 Hr 600 Mg Tabcr PO Q12HR PRN Congestion Albumin Human 50 mls @ 999 mls/hr 03/10/25 12:49 Albutein IVPB 04/09/25 12:48 Q10M PRN HYPOTENSION Ceftriaxone Sodium 2 gm/ 100 mls @ 200 mls/hr 03/13/25 09:00 03/16/25 09:12 Sodium Chloride IVPB Infused DAILY ADDISON Infusion Montelukast Sodium 10 mg 03/11/25 21:00 03/16/25 20:28 Montelukast Sodium 10 Mg Tablet PO 10 mg HS ADDISON Administration Polyethylene Glycol 17 gm 03/14/25 14:26 03/16/25 17:41 Polyethylene Glycol 3350 17 Gm Powd.Pack PO 17 gm DAILY PRN Administration Constipation Fluticasone/Salmeterol 2 puff 03/11/25 08:00 07/20/25 20:56 Fluticasone/Salmeterol 115-21 Mcg Inhaler 1 Puff INHALATION 2 puff Q12HRT ADDISON Administration Radiology Results: ITS Impressions Head CT 03/10/25 07:36 Impression: No intracranial hemorrhage, mass, or acute infarct. Atrophy and chronic white matter changes, as above. Chest X-Ray 03/16/25 09:51 Impression: Possible mild bibasilar pulmonary edema. Consider pneumonia in the left lung base. Labs Labs: Laboratory Results - last 24 hr 03/16/25 03/17/25 06:36 05:07 WBC 8.1 7.6 RBC 4.96 5.16 Hgb 13.3 13.4 Hct 43.3 43.8 MCV 87.3 84.9 MCH 26.8 26.0 MCHC 30.7 L 30.6 L RDW 17.9 H 17.2 H Plt Count 298 275 MPV 10.6 H 9.9 Sodium 139 Potassium 4.2 Chloride 102 Carbon Dioxide 20 L Anion Gap 17 H BUN 39 H Creatinine 10.31 H Estim Creat Clear Calc 5 Estimated GFR 4 L Glucose 113 H Calcium 10.4 H Phosphorus 6.7 H Albumin 4.1
--- NOTE | 2025-03-17 12:56 | PCSTNOTE ---
Attempted Bedside swallow eval 8:00 heading to dialysis not alert for assessing with food/linquid trials. Returned 12:30 and 1:00 patient still not back from dialysis.
--- NOTE | 2025-03-17 13:19 | PCOTNOTE ---
Attempted to see Patient at this time. Upon arrival to the room, Patient's RN, [employer] and another staff member at Patient's bedside. Per RN, Patient recently returned from dialysis, Patient is not responding well and very difficulty to arouse. RN is contacting the MD and unable to participate in therapy services.
--- NOTE | 2025-03-17 13:23 | PM.IMPN ---
Progress Note: A&P Assessment and Plan (1) Altered mental status: Qualifiers: Altered mental status type: disorientation Qualified Code(s): R41.0 - Disorientation, unspecified Code(s): R41.82 - Altered mental status, unspecified Status: Acute Assessment and Plan: - Head CT: No intracranial hemorrhage, mass, or acute infarct. Atrophy and chronic white matter changes, as above. - UA not suggestive of UTI - possible PNA on CXR, see below. started on abx- will continue - no significant electrolyte derangements, no hypoxia/supplemental O2 requirement, no significant anemia Suspect encephalopathy secondary to PNA. 03/12 - somewhat better today but still confused. will order ua (pt still makes urine) to r/o uti BC so far negative no worsening resp symptoms-so low suspicion for pneumonia continue tx for now 03/13 ua was collected to r/o uti pt/ot ordered 03/14 a little more alert today continue antibiotcs neurology was consulted-awaiting recommendations 03/15 more alert today, no episodes of anxiety 03/16 no acute events, still confused but able to follow some commands intermittently completed treatment for pneumonia, UA didnot reflex in culture. Will obtain BC to rule out any bacteremia. But with pt finishing up antibiotic, mental status should be improving and it is not. Neurology was consulted. of note- last day for rocephin is today, 03/17 03/17 today she is worse, not interactive at all. She was able to eat and drink yesterday but clearly not able today. She is now has low grade fever and tachycardia. BC were collected yesterday. Repeated chest xray on 03/16 was essentially unchanged, will repeat today and treat for HAP as now have symptoms: fever, tachycardia. NOted that she had dialyses today and extra fluids was removed. (2) Pneumonia: Qualifiers: Laterality: left Lung location: lower lobe of lung Pneumonia type: due to unspecified organism Qualified Code(s): J18.9 - Pneumonia, unspecified organism Code(s): J18.9 - Pneumonia, unspecified organism Status: Acute Assessment and Plan: - CXR: Cardiomegaly with congestive leti and minimal interstitial thickening which is suggestive of cardiac decompensation and pulmonary edema. Left basilar atelectasis versus pneumonia with possible. Clinical correlation and follow-up advised. - started on CAP tx: Ceftriaxone and doxycycline on 03/10 - no MRSA on file, check PCR - supportive care: Tylenol, Mucinex, Tessalon Perles - sputum culture if obtainable - no current supplemental O2 requirement -IS, ambulation pt is fall and aspiration risk continue antibiotics completing antibiotic tx today Today, she developed low grade fever, more confused- chest xray yesterday mentioned left lung pneumonia. We will escalate antibiotics to provide pseudomonal coverage- Cefepime ordered and started on 03/17/25, renally dosed. MRSA swab done and negative. - will obtain lactic acid, ABG. Give 250 ml of fluids - [id number]-could be due to extra fluids removed during dialysis today, whcih resulted in tachycardia, or low grade fever will place on tele EKG if needed 250 ml 0.9 ns- discussed with Dr Bethea - alexandra to give abg ordered (3) Pulmonary edema: Qualifiers: Chronicity: acute Qualified Code(s): J81.0 - Acute pulmonary edema Code(s): J81.1 - Chronic pulmonary edema Status: Acute Assessment and Plan: - no echo on file, ordered - CXR concerning for cardiomegaly with congestive leti and minimal interstitial thickening which is suggestive of cardiac decompensation and pulmonary edema. - fluid management via dialysis - monitor I&Os and daily weights - trend renal function 03/10 echo: Summary 1. Complete two-dimensional, color flow and Doppler transthoracic echocardiogram is performed. 2. Technically difficult study and patient refuse to complete full study ECHO. 3. In the available views, there is normal left ventricular size with hyperdynamic systolic function. 4. The right ventricle is normal in size and systolic function. 5. There are no significant valvular abnormalities. Left Ventricle The left ventricle is normal in size with hyperdynamic systolic function. There is concentric left ventricular remodeling. The left ventricular ejection fraction is visually estimated to be greater than 70% (4) ESRD on hemodialysis: Code(s): N18.6 - End stage renal disease; Z99.2 - Dependence on renal dialysis Status: Chronic Assessment and Plan: - creatinine 8.64, BUN 18, GFR 5 - nephrology consulted for inpatient HD - dialysis: Mon, Wed, Mon - trend renal function - trend electrolytes, correct as needed 03/12 cr imporved, able to complete dialysis tx and tolerated it well. nephrology following (5) HTN (hypertension): Code(s): I10 - Essential (primary) hypertension Status: Acute Assessment and Plan: - chronic, currently 152/85 - continue home medications: Amlodipine - monitor Plan Diet: Renal GI Prophylaxis: NA DVT Prophylaxis: SCDs IV fluids: Lines/Tubes: peripheral IV Code Status: full code Time Spent With Patient Time with patient: 25 - 35 minutes Subjective Date/time seen: 03/17/25 13:23 Interval history: Pt is seen and examined. Today, would be her last dose of rocephin. She was more alert and interactive yesterday but today, confused again. She was able to eat and drink yesterday but clearly not able today. She is now has low grade fever and tachycardia. NOted that she had dialyses today and extra fluids was removed. BC were collected yesterday. Repeated chest xray on 03/16 was essentially unchanged, will repeat today and treat for HAP as now have symptoms: fever, tachycardia. Review of Systems Review of Systems: All systems reviewed & are unremarkable except as noted in HPI and below (Limited, altered) Exam Narrative: A/Ox1. +thrill and bruit to graft in the RUE. more confused today, not interactive Const: General: comfortable Other: , female, nontoxic appearance HENMT: Face/Nose/Sinus: Normal nares present Mouth: Yes moist mucous membranes Eyes: General: appearance normal, both eyes and all related structures Sclera: sclerae normal Pupils: Equal, round and reactive pupils present EOM: EOMs intact bilaterally Resp: Effort & Inspection: normal respiratory effort Auscultation: diminished lung sounds Cardio: Rate: tachycardic Rhythm: regular rhythm Other: S1-S2 present without murmur, rub, ectopy GI: Auscultation: normal bowel sounds Other: Abdomen soft, nondistended, nontender. Normoactive bowel sounds in all quadrants. Skin: General skin exam: normal color and no rashes or lesions noted Wounds: no wounds Neuro: Cranial nerves: Yes Equal, round and reactive pupils present Speech: normal speech Motor exam (neuro): 5/5 motor strength present throughout Sensory Exam: normal sensation Other: A&O x1, somnolent Extrem: General: normal to inspection Other: + thrill and bruit to graft in the left upper extremity Psych: Affect: normal affect Other: more alert today, still confused Objective Data Vital Signs Vital Signs: Vital Signs - 24 hr 03/16/25 13:24 03/16/25 20:00 03/16/25 20:03 Temperature Pulse Rate 102 H Respiratory Rate 18 Blood Pressure 147/93 H Pulse Oximetry 98 98 Oxygen Delivery Room Air Room Air 03/16/25 20:21 03/16/25 21:00 03/17/25 04:08 Temperature 97.6 F 97.6 F Pulse Rate 105 H 105 H 103 H Respiratory Rate 20 18 Blood Pressure 152/82 H 145/76 H Pulse Oximetry 98 99 Oxygen Delivery 03/17/25 08:50 03/17/25 09:03 03/17/25 09:15 Temperature 99 F Pulse Rate 113 H 111 H 108 H Respiratory Rate 24 H Blood Pressure 169/93 H 165/98 H 175/96 H Pulse Oximetry 98 Oxygen Delivery 03/17/25 09:30 03/17/25 09:45 03/17/25 10:00 Temperature Pulse Rate 109 H 108 H 112 H Respiratory Rate Blood Pressure 143/93 H 153/62 H 134/88 Pulse Oximetry Oxygen Delivery 03/17/25 10:15 03/17/25 10:30 03/17/25 10:45 Temperature Pulse Rate 110 H 112 H 110 H Respiratory Rate Blood Pressure 171/81 H 132/86 131/86 Pulse Oximetry Oxygen Delivery 03/17/25 11:00 03/17/25 11:15 03/17/25 11:30 Temperature Pulse Rate 114 H 114 H 115 H Respiratory Rate Blood Pressure 126/88 128/87 133/84 Pulse Oximetry Oxygen Delivery 03/17/25 11:44 03/17/25 11:55 Temperature Pulse Rate 115 H 116 H Respiratory Rate Blood Pressure 127/86 144/83 H Pulse Oximetry Oxygen Delivery Intake/Output Intake/Output: Intake & Output 03/14/25 03/15/25 03/16/25 03/17/25 23:59 23:59 23:59 23:59 Intake Total 420 465 305 0 Output Total 1600 0 0 Balance -1180 465 305 0 Meds/Results Medications: Active Medications Generic Name Dose Route Start Last Admin Trade Name Freq PRN Reason Stop Dose Admin Acetaminophen 650 mg 03/10/25 13:39 03/16/25 08:53 Acetaminophen 325 Mg Tablet PO 650 mg Q6H PRN Administration Mild Pain (1-3) or Fever Allopurinol 200 mg 03/11/25 09:00 03/16/25 08:41 Allopurinol 100 Mg Tablet PO 200 mg DAILY ADDISON Administration Amlodipine Besylate 10 mg 03/11/25 09:00 03/16/25 08:42 Amlodipine Besylate 10 Mg Tablet PO 10 mg DAILY ADDISON Administration Aspirin 81 mg 03/11/25 09:00 03/16/25 08:42 Aspirin 81 Mg Enteric Tablet PO 81 mg DAILY ADDISON Administration Atorvastatin Calcium 80 mg 03/11/25 21:00 03/16/25 20:28 Atorvastatin 40 Mg Tablet PO 80 mg HS ADIDSON Administration Benzonatate 100 mg 03/10/25 13:39 Benzonatate 100 Mg Capsule PO TID PRN Cough Bisacodyl 10 mg 03/14/25 14:26 Bisacodyl 10 Mg Suppository RECTAL DAILY PRN Constipation Guaifenesin 600 mg 03/10/25 13:39 Guaifenesin 12 Hr 600 Mg Tabcr PO Q12HR PRN Congestion Albumin Human 50 mls @ 999 mls/hr 03/10/25 12:49 Albutein IVPB 04/09/25 12:48 Q10M PRN HYPOTENSION Ceftriaxone Sodium 2 gm/ 100 mls @ 200 mls/hr 03/13/25 09:00 03/16/25 09:12 Sodium Chloride IVPB 03/17/25 23:59 Infused DAILY ADDISON Infusion Montelukast Sodium 10 mg 03/11/25 21:00 03/16/25 20:28 Montelukast Sodium 10 Mg Tablet PO 10 mg HS ADDISON Administration Polyethylene Glycol 17 gm 03/14/25 14:26 03/16/25 17:41 Polyethylene Glycol 3350 17 Gm Powd.Pack PO 17 gm DAILY PRN Administration Constipation Fluticasone/Salmeterol 2 puff 03/11/25 08:00 03/16/25 20:56 Fluticasone/Salmeterol 115-21 Mcg Inhaler 1 Puff INHALATION 2 puff Q12HRT ADDISON Administration Radiology Results: ITS Impressions Head CT 03/10/25 07:36 Impression: No intracranial hemorrhage, mass, or acute infarct. Atrophy and chronic white matter changes, as above. Chest X-Ray 03/16/25 09:51 Impression: Possible mild bibasilar pulmonary edema. Consider pneumonia in the left lung base. Labs Labs: Laboratory Results - last 24 hr 03/17/25 05:07 WBC 7.6 RBC 5.16 Hgb 13.4 Hct 43.8 MCV 84.9 MCH 26.0 MCHC 30.6 L RDW 17.2 H Plt Count 275 MPV 9.9 Sodium 139 Potassium 4.2 Chloride 102 Carbon Dioxide 20 L Anion Gap 17 H BUN 39 H Creatinine 10.31 H Estim Creat Clear Calc 5 Estimated GFR 4 L Glucose 113 H Calcium 10.4 H Phosphorus 6.7 H Albumin 4.1 Quality VTE Prophylaxis VTE prophylaxis: mechanical ordered
[2025-03-17] MEDS: cefTRIAXone 2 GM in SODIUM CHLORIDE 0.9% IV 100 ML 200 ML IVPB (13:38)
--- NOTE | 2025-03-17 13:51 | ECG_ITS ---
Test Date: 2025-03-17 14:23:20 Measurements Intervals [place] Rate: 121 P: 109 WA: 133 QRS: -51 QRSD: 128 T: 34 QT: 354 QTc: 503 Interpretive Statements SINUS TACHYCARDIA RIGHT BUNDLE BRANCH BLOCK [120+ ms QRS DURATION, UPRIGHT V1, 40+ ms S IN I/aVL/V4/V5/V6] LEFT ANTERIOR FASCICULAR BLOCK [QRS AXIS <= -45, QR IN I, RS IN II] Compared to ECG 03/10/2025 07:28:46 NO SIGNIFICANT CHANGE ALTHOUGH THE RATE HAS INCREASED Electronically Signed On 03-17-2025 15:26:27 CDT by Zeyad Trivedi M.D.
[2025-03-17] MEDS: SODIUM CHLORIDE 0.9% IV 250 ML 125 ML IV CONT (14:13)
[2025-03-17] MEDS: CEFEPIME 1 GM in SODIUM CHLORIDE 0.9% IV 50 ML 100 ML IVPB (14:14)
--- NOTE | 2025-03-17 14:42 | PCPTNOTE ---
The patient treatment was not able to be completed on 03/17/2025 due to patient not appropriate for PT. Per RN patient not responding well after dialysis, not following cues or verbally responding. Will plan to continue treatment per plan of care.
[2025-03-17] MEDS: SODIUM CHLORIDE 0.9% IV 1,000 ML 50 ML IV CONT (17:13)
--- NOTE | 2025-03-17 18:52 | PCRCNOTE ---
RT attempted to draw ordered ABG on patient at 1415, however was unable to retrieve due to patient flipping arm in the air sporadically, even when held down. The 2nd Medical RT was informed. 2nd Medical RT attempted this ABG as well. Nurse called provider who agreed for a VBG order to be put in instead. Lab was notified by the nurse and 2nd Medical RT.
--- NOTE | 2025-03-17 18:54 | PC.NURSE ---
Patient very lethargic post dialysis. Notified provider of heart rate in the 115-120 range. Slight fever of 100F in dialysis. Patient no longer verbally responding. Recieved order to place patient on telemetry, obtain stat EKG, and brain MRI
--- NOTE | 2025-03-17 19:27 | PCRCNOTE ---
multiple RT attempted to collect ABG on PT with no success, RN gave the OK to have it switched to VBG, currently waiting on lab to draw. RN aware, lab aware.
--- NOTE | 2025-03-17 20:00 | PCRTNOTE ---
Currently waiting on lab to draw VBG. RN aware, lab aware.
[2025-03-17] MEDS: FLUTICASONE/SALMETEROL 115-21 MCG INHALER 1 PUFF 2 PUFF INHALATION (20:52)
--- NOTE | 2025-03-17 22:00 | PCRCNOTE ---
Currently waiting on lab to draw. RN aware, lab aware.
[2025-03-18] VITALS (10 sets, daily range): BP systolic 120–164; BP diastolic 56–87; PULSE 104–127; RESP 18–20; TEMP 36.4–36.6; O2SAT 99–100
[2025-03-18 05:23] LABS: Albumin Level 4.2 g/dL (3.5-5.1); Anion Gap 15 mmol/L (4-12); Blood Urea Nitrogen 32 mg/dL (7-17); Calcium 10.6 mg/dL (8.4-10.2); Carbon Dioxide 23 mmol/L (22-30); Chloride 97 mmol/L (98-107); Estimated CRCL calculation 6 ml/min; Estimated Glomerular Filt Rate 4; Glucose 131 mg/dL (65-110); Potassium 4.6 mmol/L (3.4-5.0); Sodium 135 mmol/L (137-145)
--- NOTE | 2025-03-18 07:17 | PCRCNOTE ---
PT. UNABLE TO DO MDI PROPERLY AT THIS TIME.
--- NOTE | 2025-03-18 07:44 | PM.IMPN ---
Progress Note: A&P Assessment and Plan (1) Altered mental status: Qualifiers: Altered mental status type: disorientation Qualified Code(s): R41.0 - Disorientation, unspecified Code(s): R41.82 - Altered mental status, unspecified Status: Acute Assessment and Plan: - Head CT: No intracranial hemorrhage, mass, or acute infarct. Atrophy and chronic white matter changes, as above. - UA not suggestive of UTI - possible PNA on CXR, see below. started on abx- will continue - no significant electrolyte derangements, no hypoxia/supplemental O2 requirement, no significant anemia Suspect encephalopathy secondary to PNA. 03/12 - somewhat better today but still confused. will order ua (pt still makes urine) to r/o uti BC so far negative no worsening resp symptoms-so low suspicion for pneumonia continue tx for now 03/13 ua was collected to r/o uti pt/ot ordered 03/14 a little more alert today continue antibiotcs neurology was consulted-awaiting recommendations 03/15 more alert today, no episodes of anxiety 03/16 no acute events, still confused but able to follow some commands intermittently completed treatment for pneumonia, UA didnot reflex in culture. Will obtain BC to rule out any bacteremia. But with pt finishing up antibiotic, mental status should be improving and it is not. Neurology was consulted. of note- last day for rocephin is today, 03/17 03/17 today she is worse, not interactive at all. She was able to eat and drink yesterday but clearly not able today. She is now has low grade fever and tachycardia. BC were collected yesterday. Repeated chest xray on 03/16 was essentially unchanged, will repeat today and treat for HAP as now have symptoms: fever, tachycardia. NOted that she had dialyses today and extra fluids was removed. 03/18 pt is more alert today, will see how her intake is. Due to fluctuation of mentation, may be prudent to have a discussion for nutritional access with . (2) Pneumonia: Qualifiers: Laterality: left Lung location: lower lobe of lung Pneumonia type: due to unspecified organism Qualified Code(s): J18.9 - Pneumonia, unspecified organism Code(s): J18.9 - Pneumonia, unspecified organism Status: Acute Assessment and Plan: - CXR: Cardiomegaly with congestive leti and minimal interstitial thickening which is suggestive of cardiac decompensation and pulmonary edema. Left basilar atelectasis versus pneumonia with possible. Clinical correlation and follow-up advised. - started on CAP tx: Ceftriaxone and doxycycline on 03/10 - no MRSA on file, check PCR - supportive care: Tylenol, Mucinex, Tessalon Perles - sputum culture if obtainable - no current supplemental O2 requirement -IS, ambulation pt is fall and aspiration risk continue antibiotics Today, 03/17, she developed low grade fever, more confused- chest xray yesterday mentioned left lung pneumonia. We will escalate antibiotics to provide pseudomonal coverage- Cefepime ordered and started on 03/17/25, renally dosed. MRSA swab done and negative. - will obtain lactic acid, ABG. Give 250 ml of fluids - [id number]-could be due to extra fluids removed during dialysis today, whcih resulted in tachycardia, or low grade fever will place on tele EKG if needed 250 ml 0.9 ns- discussed with Dr Bethea - alexandra to give abg ordered 03/18 Continue cefepime 2 gm daily no fever BC still pending (3) Pulmonary edema: Qualifiers: Chronicity: acute Qualified Code(s): J81.0 - Acute pulmonary edema Code(s): J81.1 - Chronic pulmonary edema Status: Acute Assessment and Plan: - no echo on file, ordered - CXR concerning for cardiomegaly with congestive leti and minimal interstitial thickening which is suggestive of cardiac decompensation and pulmonary edema. - fluid management via dialysis - monitor I&Os and daily weights - trend renal function 03/10 echo: Summary 1. Complete two-dimensional, color flow and Doppler transthoracic echocardiogram is performed. 2. Technically difficult study and patient refuse to complete full study ECHO. 3. In the available views, there is normal left ventricular size with hyperdynamic systolic function. 4. The right ventricle is normal in size and systolic function. 5. There are no significant valvular abnormalities. Left Ventricle The left ventricle is normal in size with hyperdynamic systolic function. There is concentric left ventricular remodeling. The left ventricular ejection fraction is visually estimated to be greater than 70% (4) ESRD on hemodialysis: Code(s): N18.6 - End stage renal disease; Z99.2 - Dependence on renal dialysis Status: Chronic Assessment and Plan: - creatinine 8.64, BUN 18, GFR 5 - nephrology consulted for inpatient HD - dialysis: Mon, Wed, Mon - trend renal function - trend electrolytes, correct as needed 03/12 cr imporved, able to complete dialysis tx and tolerated it well. nephrology following cr worsening-03/17 extra fluid was removed trend bmp (5) HTN (hypertension): Code(s): I10 - Essential (primary) hypertension Status: Acute Assessment and Plan: - chronic, currently 152/85 - continue home medications: Amlodipine - monitor Plan Diet: Renal GI Prophylaxis: NA DVT Prophylaxis: SCDs IV fluids: Lines/Tubes: peripheral IV Code Status: full code Time Spent With Patient Time with patient: 25 - 35 minutes Subjective Date/time seen: 03/18/25 07:44 Interval history: Pt is seen and examined. She is resting in bed. Alert but not interacting much. Appears comfortable. A little tender to abd to palpation. Had BM smear last night but no Bm in few days. MRI today. Received 500 ml 0.9 ns yesterday. will call to discuss plan of care and options for nutrition if pt continues to have alertness fluctuation and intake is greatly decreased. Review of Systems Review of Systems: All systems reviewed & are unremarkable except as noted in HPI and below (Limited, altered) Exam Narrative: A/Ox1. +thrill and bruit to graft in the RUE. more alert today but not interactive Const: General: comfortable and no acute distress Other: , female, nontoxic appearance HENMT: Face/Nose/Sinus: Normal nares present Mouth: Yes moist mucous membranes Eyes: General: appearance normal, both eyes and all related structures Sclera: sclerae normal Pupils: Equal, round and reactive pupils present EOM: EOMs intact bilaterally Resp: Effort & Inspection: normal respiratory effort Auscultation: clear to auscultation bilaterally and diminished lung sounds Cardio: Rate: regular rate and tachycardic Rhythm: regular rhythm Other: S1-S2 present without murmur, rub, ectopy GI: Auscultation: normal bowel sounds Other: Abdomen soft, nondistended, nontender. Normoactive bowel sounds in all quadrants. Skin: General skin exam: normal color and no rashes or lesions noted Wounds: no wounds Neuro: Cranial nerves: Yes Equal, round and reactive pupils present Speech: normal speech Motor exam (neuro): 5/5 motor strength present throughout Sensory Exam: normal sensation Other: A&O x1, somnolent Extrem: General: normal to inspection Other: + thrill and bruit to graft in the left upper extremity Psych: Mental Status: mental status grossly normal Affect: normal affect Other: more alert today, still confused Objective Data Vital Signs Vital Signs: Vital Signs - 24 hr 03/17/25 08:00 03/17/25 08:50 03/17/25 09:03 Temperature 99 F Pulse Rate 113 H 111 H Respiratory Rate 24 H Blood Pressure 169/93 H 165/98 H Pulse Oximetry 98 Oxygen Delivery Room Air Fraction of Inspired Oxygen 03/17/25 09:15 03/17/25 09:30 03/17/25 09:45 Temperature Pulse Rate 108 H 109 H 108 H Respiratory Rate Blood Pressure 175/96 H 143/93 H 153/62 H Pulse Oximetry Oxygen Delivery Fraction of Inspired Oxygen 03/17/25 10:00 03/17/25 10:15 03/17/25 10:30 Temperature Pulse Rate 112 H 110 H 112 H Respiratory Rate Blood Pressure 134/88 171/81 H 132/86 Pulse Oximetry Oxygen Delivery Fraction of Inspired Oxygen 03/17/25 10:45 03/17/25 11:00 03/17/25 11:15 Temperature Pulse Rate 110 H 114 H 114 H Respiratory Rate Blood Pressure 131/86 126/88 128/87 Pulse Oximetry Oxygen Delivery Fraction of Inspired Oxygen 03/17/25 11:30 03/17/25 11:44 03/17/25 11:55 Temperature Pulse Rate 115 H 115 H 116 H Respiratory Rate Blood Pressure 133/84 127/86 144/83 H Pulse Oximetry Oxygen Delivery Fraction of Inspired Oxygen 03/17/25 12:00 03/17/25 12:15 03/17/25 12:30 Temperature Pulse Rate 112 H 118 H 121 H Respiratory Rate Blood Pressure 146/89 H 127/81 115/83 Pulse Oximetry Oxygen Delivery Fraction of Inspired Oxygen 03/17/25 12:50 03/17/25 12:54 03/17/25 14:00 Temperature 100 F H 97.5 F L Pulse Rate 123 H 120 H 120 H Respiratory Rate 16 18 Blood Pressure 147/88 H 125/83 154/94 H Pulse Oximetry 100 100 Oxygen Delivery Fraction of Inspired Oxygen 03/17/25 20:00 03/17/25 20:00 03/17/25 20:33 Temperature 97.8 F Pulse Rate 109 H 110 H Respiratory Rate 20 Blood Pressure 139/72 Pulse Oximetry 96 Oxygen Delivery Room Air Fraction of Inspired Oxygen 03/17/25 20:53 03/17/25 20:54 03/18/25 00:00 Temperature Pulse Rate 115 H 115 H 112 H Respiratory Rate 20 20 Blood Pressure Pulse Oximetry 99 Oxygen Delivery Room Air Fraction of Inspired Oxygen 03/18/25 04:00 03/18/25 05:34 Temperature 97.6 F Pulse Rate 122 H 125 H Respiratory Rate 20 Blood Pressure 120/74 Pulse Oximetry 100 Oxygen Delivery Fraction of Inspired Oxygen Intake/Output Intake/Output: Intake & Output 03/15/25 03/16/25 03/17/25 03/18/25 23:59 23:59 23:59 23:59 Intake Total 465 305 50 0 Output Total 0 2000 0 Balance 465 305 -1950 0 Meds/Results Medications: Active Medications Generic Name Dose Route Start Last Admin Trade Name Freq PRN Reason Stop Dose Admin Acetaminophen 650 mg 03/10/25 13:39 03/16/25 08:53 Acetaminophen 325 Mg Tablet PO 650 mg Q6H PRN Administration Mild Pain (1-3) or Fever Acetaminophen 650 mg 03/17/25 13:40 Acetaminophen 650 Mg Suppository RECTAL Q6H PRN Mild Pain (1-3) or Fever Allopurinol 200 mg 03/11/25 09:00 03/17/25 13:38 Allopurinol 100 Mg Tablet PO Not Given DAILY [facility] Amlodipine Besylate 10 mg 03/11/25 09:00 03/17/25 13:38 Amlodipine Besylate 10 Mg Tablet PO Not Given DAILY [facility] Aspirin 81 mg 03/11/25 09:00 03/17/25 13:38 Aspirin 81 Mg Enteric Tablet PO Not Given DAILY [facility] Atorvastatin Calcium 80 mg 03/11/25 21:00 03/17/25 21:00 Atorvastatin 40 Mg Tablet PO Not Given HS [facility] Benzonatate 100 mg 03/10/25 13:39 Benzonatate 100 Mg Capsule PO TID PRN Cough Bisacodyl 10 mg 03/14/25 14:26 Bisacodyl 10 Mg Suppository RECTAL DAILY PRN Constipation Guaifenesin 600 mg 03/10/25 13:39 Guaifenesin 12 Hr 600 Mg Tabcr PO Q12HR PRN Congestion Albumin Human 50 mls @ 999 mls/hr 03/10/25 12:49 Albutein IVPB 04/09/25 12:48 Q10M PRN HYPOTENSION Cefepime HCl 1 gm/ Sodium 50 mls @ 100 mls/hr 03/17/25 14:30 03/17/25 14:44 Chloride IVPB Infused DAILY@1800 [facility] Infusion Sodium Chloride 1,000 mls @ 50 mls/hr 03/17/25 17:10 03/17/25 17:13 Normal Saline Iv IV CONT 03/18/25 08:09 50 mls/hr .Q20H [facility] Administration Montelukast Sodium 10 mg 03/11/25 21:00 03/17/25 21:00 Montelukast Sodium 10 Mg Tablet PO Not Given HS [facility] Polyethylene Glycol 17 gm 03/14/25 14:26 03/16/25 17:41 Polyethylene Glycol 3350 17 Gm Powd.Pack PO 17 gm DAILY PRN Administration Constipation Fluticasone/Salmeterol 2 puff 03/11/25 08:00 03/18/25 07:17 Fluticasone/Salmeterol 115-21 Mcg Inhaler 1 Puff INHALATION Not Given Q12HRT [facility] Radiology Results: ITS Impressions Head CT 03/10/25 07:36 Impression: No intracranial hemorrhage, mass, or acute infarct. Atrophy and chronic white matter changes, as above. Chest X-Ray 03/16/25 09:51 Impression: Possible mild bibasilar pulmonary edema. Consider pneumonia in the left lung base. Labs Labs: Laboratory Results - last 24 hr 03/17/25 03/17/25 03/18/25 14:07 14:11 04:27 Sodium 135 L Potassium 4.6 Chloride 97 L Carbon Dioxide 23 Anion Gap 15 H BUN 32 H Creatinine 9.03 H Estim Creat Clear Calc 6 Estimated GFR 4 L Glucose 131 H POC Capillary Glucose 180 H Lactic Acid 2.0 Calcium 10.6 H Phosphorus 6.6 H Albumin 4.2 Quality VTE Prophylaxis VTE prophylaxis: mechanical ordered
--- NOTE | 2025-03-18 09:03 | PCNEURO ---
EEG was attempted this morning but patient unable to lay still and follow commands. Will try again tomorrow. Dr Parrish has been notified of this.
--- NOTE | 2025-03-18 09:25 | P.PNNP_ITS ---
Progress Note: A&P Assessment and Plan (1) End stage renal disease: Code(s): N18.6 - End stage renal disease Status: Chronic Assessment and Plan: * HD do tomorrow * potassium doing well. * volume status looks okay. (2) Altered mental status: Qualifiers: Altered mental status type: disorientation Qualified Code(s): R41.0 - Disorientation, unspecified Code(s): R41.82 - Altered mental status, unspecified Status: Acute Assessment and Plan: * reportedly noted over the last 2 weeks * clinically worse on 03/10 with associated agitation/combative behavior * however, per outpatient dialysis center, her mentation seems to fluctuate even at baseline * but she is usually not combative/uncooperative * CT of brain noted: * no intracranial hemorrhage, mass, or acute infarct * atrophy and chronic white matter changes * related to possible infection(?): * admission UA not suggestive of UTI * however, repeat UA (03/12) noted * questionable pneumonia on CXR * per hospitalist encephalopathy due to pneumonia. It seems worse today. Sodium, calcium, and bicarbonate are okay. B12, folate, and TSH are all okay. Blood gas looked okay. Oxygen was a little bit low but on O2 sat reading she is generally running between 97 and 100. Neurology consult has been ordered. Await the visit. * on empiric antibiotics * the patient is well dialyzed and ESRD should not contribute to her altered mental status * neurology saw the patient. * the patient does have a mildly high calcium I doubt if this is contributing but because she has altered mental status I will treat this to get it back down. She is not on calcium supplements. Will check vitamin-D, angiotensin- converting enzyme, and a bone scan. (3) Pulmonary edema: Qualifiers: Chronicity: acute Qualified Code(s): J81.0 - Acute pulmonary edema Code(s): J81.1 - Chronic pulmonary edema Status: Acute Assessment and Plan: * as noted by admission CXR: * cardiomegaly with congestive leti and minimal interstitial thickening which is suggestive of cardiac decompensation and pulmonary edema * however, no evidence of respiratory distress or hypoxia * will repeat the chest x-ray today. * Echo results noted: * there is normal left ventricular size with hyperdynamic systolic function * left ventricular ejection fraction is visually estimated to be greater than 70% * right ventricle is normal in size and systolic function * no significant valvular abnormalities * Fluid removed in dialysis yesterday. (4) Pneumonia: Qualifiers: Laterality: left Lung location: lower lobe of lung Pneumonia type: due to unspecified organism Qualified Code(s): J18.9 - Pneumonia, unspecified organism Code(s): J18.9 - Pneumonia, unspecified organism Status: Acute Assessment and Plan: * some suggestion by admission CXR * follow culture data - negative to date * on ceftriaxone and doxycycline * on evidence of hypoxia or respiratory distress * on no oxygen. (5) HTN (hypertension): Code(s): I10 - Essential (primary) hypertension Status: Acute Assessment and Plan: * systolic seems better. (6) Anemia: Code(s): D64.9 - Anemia, unspecified Status: Chronic Assessment and Plan: * due to ESRD * H/H supratherapeutic at this time * holding Epogen for now * hemoglobin 13.4 last check Subjective Date/time seen: 03/18/25 09:25 Interval history: Patient is a little more awake today. She tries to talk but she does not make any sense. She does make eye contact. She looks comfortable Exam Narrative: General: Well-developed female in NAD Heart: normal S1 and S2; no rub or gallop Lungs: Clear to auscultation Abdomen: soft, nontender, nondistended, positive bowel sounds Extremities: no edema Skin: no rash or subcu nodules Objective Data Vital Signs Vital Signs: Vital Signs - 24 hr 03/17/25 09:30 03/17/25 09:45 03/17/25 10:00 Temperature Pulse Rate 109 H 108 H 112 H Respiratory Rate Blood Pressure 143/93 H 153/62 H 134/88 Pulse Oximetry Oxygen Delivery Fraction of Inspired Oxygen 03/17/25 10:15 03/17/25 10:30 03/17/25 10:45 Temperature Pulse Rate 110 H 112 H 110 H Respiratory Rate Blood Pressure 171/81 H 132/86 131/86 Pulse Oximetry Oxygen Delivery Fraction of Inspired Oxygen 03/17/25 11:00 03/17/25 11:15 03/17/25 11:30 Temperature Pulse Rate 114 H 114 H 115 H Respiratory Rate Blood Pressure 126/88 128/87 133/84 Pulse Oximetry Oxygen Delivery Fraction of Inspired Oxygen 03/17/25 11:44 03/17/25 11:55 03/17/25 12:00 Temperature Pulse Rate 115 H 116 H 112 H Respiratory Rate Blood Pressure 127/86 144/83 H 146/89 H Pulse Oximetry Oxygen Delivery Fraction of Inspired Oxygen 03/17/25 12:15 03/17/25 12:30 03/17/25 12:50 Temperature Pulse Rate 118 H 121 H 123 H Respiratory Rate Blood Pressure 127/81 115/83 147/88 H Pulse Oximetry Oxygen Delivery Fraction of Inspired Oxygen 03/17/25 12:54 03/17/25 14:00 03/17/25 20:00 Temperature 100 F H 97.5 F L Pulse Rate 120 H 120 H Respiratory Rate 16 18 Blood Pressure 125/83 154/94 H Pulse Oximetry 100 100 Oxygen Delivery Room Air Fraction of Inspired Oxygen 03/17/25 20:00 03/17/25 20:33 03/17/25 20:53 Temperature 97.8 F Pulse Rate 109 H 110 H 115 H Respiratory Rate 20 20 Blood Pressure 139/72 Pulse Oximetry 96 Oxygen Delivery Fraction of Inspired Oxygen 03/17/25 20:54 03/18/25 00:00 03/18/25 04:00 Temperature Pulse Rate 115 H 112 H 122 H Respiratory Rate 20 Blood Pressure Pulse Oximetry 99 Oxygen Delivery Room Air Fraction of Inspired Oxygen 03/18/25 05:34 Temperature 97.6 F Pulse Rate 125 H Respiratory Rate 20 Blood Pressure 120/74 Pulse Oximetry 100 Oxygen Delivery Fraction of Inspired Oxygen Intake/Output Intake/Output: Intake & Output 03/15/25 03/16/25 03/17/25 03/18/25 23:59 23:59 23:59 23:59 Intake Total 465 305 50 0 Output Total 0 2000 0 Balance 465 305 -1950 0 Meds/Results Medications: Active Medications Generic Name Dose Route Start Last Admin Trade Name Freq PRN Reason Stop Dose Admin Acetaminophen 650 mg 03/10/25 13:39 03/16/25 08:53 Acetaminophen 325 Mg Tablet PO 650 mg Q6H PRN Administration Mild Pain (1-3) or Fever Acetaminophen 650 mg 03/17/25 13:40 Acetaminophen 650 Mg Suppository RECTAL Q6H PRN Mild Pain (1-3) or Fever Allopurinol 200 mg 03/11/25 09:00 03/17/25 13:38 Allopurinol 100 Mg Tablet PO Not Given DAILY [facility] Amlodipine Besylate 10 mg 03/11/25 09:00 03/17/25 13:38 Amlodipine Besylate 10 Mg Tablet PO Not Given DAILY [facility] Aspirin 81 mg 03/11/25 09:00 03/17/25 13:38 Aspirin 81 Mg Enteric Tablet PO Not Given DAILY [facility] Atorvastatin Calcium 80 mg 03/11/25 21:00 03/17/25 21:00 Atorvastatin 40 Mg Tablet PO Not Given HS [facility] Benzonatate 100 mg 03/10/25 13:39 Benzonatate 100 Mg Capsule PO TID PRN Cough Bisacodyl 10 mg 03/14/25 14:26 Bisacodyl 10 Mg Suppository RECTAL DAILY PRN Constipation Calcitonin [place] 360 units 03/18/25 09:00 Calcitonin [place] Inj 400 Units/2 Ml Vial SUB-Q 03/20/25 21:01 Q12HR [facility] Guaifenesin 600 mg 03/10/25 13:39 Guaifenesin 12 Hr 600 Mg Tabcr PO Q12HR PRN Congestion Albumin Human 50 mls @ 999 mls/hr 03/10/25 12:49 Albutein IVPB 04/09/25 12:48 Q10M PRN HYPOTENSION Cefepime HCl 1 gm/ Sodium 50 mls @ 100 mls/hr 03/17/25 14:30 03/17/25 14:44 Chloride IVPB Infused DAILY@1800 [facility] Infusion Pamidronate Disodium 30 mg/ 510 mls @ 125 mls/hr 03/18/25 09:00 Dextrose IVPB 03/18/25 13:04 ONCE ONE Montelukast Sodium 10 mg 03/11/25 21:00 03/17/25 21:00 Montelukast Sodium 10 Mg Tablet PO Not Given HS [facility] Polyethylene Glycol 17 gm 03/14/25 14:26 03/16/25 17:41 Polyethylene Glycol 3350 17 Gm Powd.Pack PO 17 gm DAILY PRN Administration Constipation Fluticasone/Salmeterol 2 puff 03/11/25 08:00 03/18/25 07:17 Fluticasone/Salmeterol 115-21 Mcg Inhaler 1 Puff INHALATION Not Given Q12HRT [facility] Radiology Results: ITS Impressions Head CT 03/10/25 07:36 Impression: No intracranial hemorrhage, mass, or acute infarct. Atrophy and chronic white matter changes, as above. Chest X-Ray 03/16/25 09:51 Impression: Possible mild bibasilar pulmonary edema. Consider pneumonia in the left lung base. Labs Labs: Laboratory Results - last 24 hr 03/17/25 03/17/25 03/18/25 14:07 14:11 04:27 Sodium 135 L Potassium 4.6 Chloride 97 L Carbon Dioxide 23 Anion Gap 15 H BUN 32 H Creatinine 9.03 H Estim Creat Clear Calc 6 Estimated GFR 4 L Glucose 131 H POC Capillary Glucose 180 H Lactic Acid 2.0 Calcium 10.6 H Phosphorus 6.6 H Albumin 4.2
[2025-03-18] MEDS: PAMIDRONATE DISODIUM 30 MG in DEXTROSE 5% IN WATER 500 ML 125 MG IVPB (09:50)
[2025-03-18] MEDS: CALCITONIN SALMON INJ 400 UNITS/2 ML VIAL 360 UNITS SUB-Q (09:51)
[2025-03-18] MEDS: BISACODYL 10 MG SUPPOSITORY RECTAL (09:56)
[2025-03-18 10:27] LABS: Parathyroid Intact 434.8 pg/mL (14.5-75.2)
--- NOTE | 2025-03-18 10:38 | PCNFU ---
Nutrition Follow-Up Complete: Inadequate oral intake related to loss of appetite, dialysis as evidenced by intakes 5% Goal: PO intakes >50% Patient has limited progress on goal. We will continue current goal. Pt current nutrition is Renal Dialysis with diet supplements. Last recorded weight is 94.5 kg, down from 102.3 kcal on admit. Bowel Motility: Last reported BM 03/17 Labs Reviewed: PO4 6.6, BUN 32, Cr 9.03, Glu 131, Na 135 Meds Noted: Lipitor Skin: WNL Additional Notes: Patient remains Renal Dialysis diet. Oral Intake have been < 50% of meals. DIet supplements are being ordered for additional kcal and protein needs. Spoke with nursing today, reporting lethargic. PO intake encouraged. Monitoring intakes, weights, labs, supplement tolerance, plan of care Follow up in 3 days
--- NOTE | 2025-03-18 10:48 | PCPTNOTE ---
Attempted to see patient for PT, however patient unable to participate with therapy and not appropriate for PT. Per RN patient is not following cues or verbally responding.
--- NOTE | 2025-03-18 11:05 | PCOTNOTE ---
The patient treatment was not able to be completed. Per RN not appropriate to be seen. No following command. Will plan to continue treatment per plan of care.
--- NOTE | 2025-03-18 11:23 | PCSTNOTE ---
Attempted BSE on this date; patient unable to follow commands required for completion of evaluation. Hospitalist requested we check in with her 03/19/25.
[2025-03-18] MEDS: CEFEPIME 1 GM in SODIUM CHLORIDE 0.9% IV 50 ML 100 ML IVPB (17:25)
[2025-03-19] VITALS (10 sets, daily range): BP systolic 127–150; BP diastolic 77–95; PULSE 103–120; RESP 16–25; TEMP 36.3–37; O2SAT 96–100
[2025-03-19 05:14] LABS: Hematocrit 39.2 % (37.0-47.0); Hemoglobin 12.4 g/dL (12.0-15.0); Mean Corpuscular HGB Conc 31.6 g/dl (32-36); Mean Corpuscular Hemoglobin 26.3 pg (26-34); Mean Corpuscular Volume 83.2 fl (80-100); Platelet Count Result 235 k/mm3 (150-375); Red Blood Count 4.71 M/mm3 (4.2-5.4); White Blood Count 9.6 K/mm3 (4.5-10.0)
[2025-03-19 05:32] LABS: Albumin Level 3.6 g/dL (3.5-5.1); Anion Gap 15 mmol/L (4-12); Blood Urea Nitrogen 48 mg/dL (7-17); Calcium 9.2 mg/dL (8.4-10.2); Carbon Dioxide 20 mmol/L (22-30); Chloride 101 mmol/L (98-107); Estimated CRCL calculation 5 ml/min; Estimated Glomerular Filt Rate 4; Glucose 138 mg/dL (65-110); Potassium 4.4 mmol/L (3.4-5.0); Sodium 136 mmol/L (137-145)
--- NOTE | 2025-03-19 08:45 | PCPTNOTE ---
The patient treatment was not able to be completed on 03/19/2025, per RN patient not appropriate for PT and not following any cues. Will plan to continue treatment per plan of care.
[2025-03-19] MEDS: CALCITONIN SALMON INJ 400 UNITS/2 ML VIAL 360 UNITS SUB-Q ×2 (09:48→20:35)
--- NOTE | 2025-03-19 10:19 | P.PNNP_ITS ---
Progress Note: A&P Assessment and Plan (1) End stage renal disease: Code(s): N18.6 - End stage renal disease Status: Chronic Assessment and Plan: * HD labs okay. Volume status is good * Dialysis nurses short staffed. Will do dialysis tomorrow * potassium doing well. * volume status looks okay. (2) Altered mental status: Qualifiers: Altered mental status type: disorientation Qualified Code(s): R41.0 - Disorientation, unspecified Code(s): R41.82 - Altered mental status, unspecified Status: Acute Assessment and Plan: * reportedly noted over the last 2 weeks * clinically worse on 03/10 with associated agitation/combative behavior * however, per outpatient dialysis center, her mentation seems to fluctuate even at baseline * but she is usually not combative/uncooperative * CT of brain noted: * no intracranial hemorrhage, mass, or acute infarct * atrophy and chronic white matter changes * related to possible infection(?): * admission UA not suggestive of UTI * however, repeat UA (03/12) noted * questionable pneumonia on CXR * per hospitalist encephalopathy due to pneumonia. It seems worse today. Sodium, calcium, and bicarbonate are okay. B12, folate, and TSH are all okay. Blood gas looked okay. Oxygen was a little bit low but on O2 sat reading she is generally running between 97 and 100. Neurology consult has been ordered. Await the visit. * on empiric antibiotics * the patient is well dialyzed and ESRD should not contribute to her altered mental status * neurology saw the patient. * Calcium level is down to normal now. (patient could not sit still for the bone scan) (3) Pulmonary edema: Qualifiers: Chronicity: acute Qualified Code(s): J81.0 - Acute pulmonary edema Code(s): J81.1 - Chronic pulmonary edema Status: Acute Assessment and Plan: * as noted by admission CXR: * cardiomegaly with congestive leti and minimal interstitial thickening which is suggestive of cardiac decompensation and pulmonary edema * however, no evidence of respiratory distress or hypoxia * will repeat the chest x-ray today to help with decision of fluid removal tomorrow * Echo results noted: * there is normal left ventricular size with hyperdynamic systolic function * left ventricular ejection fraction is visually estimated to be greater than 70% * right ventricle is normal in size and systolic function * no significant valvular abnormalities * Clinically the patient seems euvolemic. Blood pressure is doing well. She does not require oxygen (4) Pneumonia: Qualifiers: Laterality: left Lung location: lower lobe of lung Pneumonia type: due to unspecified organism Qualified Code(s): J18.9 - Pneumonia, unspecified organism Code(s): J18.9 - Pneumonia, unspecified organism Status: Acute Assessment and Plan: * some suggestion by admission CXR * follow culture data - negative to date * on ceftriaxone and doxycycline * on evidence of hypoxia or respiratory distress * on no oxygen. (5) HTN (hypertension): Code(s): I10 - Essential (primary) hypertension Status: Acute Assessment and Plan: * systolic looks better. (6) Anemia: Code(s): D64.9 - Anemia, unspecified Status: Chronic Assessment and Plan: * due to ESRD * H/H supratherapeutic at this time * holding Epogen for now * hemoglobin 12.4 last check Subjective Date/time seen: 03/19/25 10:19 Interval history: Patient is resting in bed. Still confused. Awake. Bit agitated. Exam Narrative: General: Well-developed female in NAD, few and a bit agitated. Heart: normal S1 and S2; no rub or gallop Lungs: Clear to auscultation Abdomen: soft, nontender, nondistended, positive bowel sounds Extremities: no edema or cyanosis Skin: no rash or subcu nodules Neck: supple Objective Data Vital Signs Vital Signs: Vital Signs - 24 hr 03/18/25 12:00 03/18/25 14:00 03/18/25 16:00 Temperature 97.9 F Pulse Rate 127 H 112 H 104 H Respiratory Rate 20 Blood Pressure 122/56 L Pulse Oximetry 99 Oxygen Delivery 03/18/25 20:01 03/18/25 20:50 03/18/25 20:59 Temperature 97.6 F Pulse Rate 107 H 108 H Respiratory Rate 18 Blood Pressure 136/61 Pulse Oximetry 99 Oxygen Delivery Room Air 03/19/25 00:03 03/19/25 04:00 03/19/25 04:10 Temperature 97.9 F Pulse Rate 103 H 108 H 115 H Respiratory Rate 18 Blood Pressure 127/77 Pulse Oximetry 96 Oxygen Delivery Intake/Output Intake/Output: Intake & Output 03/16/25 03/17/25 03/18/25 07/23/25 23:59 23:59 23:59 23:59 Intake Total 305 50 0 0 Output Total 0 2000 0 0 Balance 305 -1950 0 0 Meds/Results Medications: Active Medications Generic Name Dose Route Start Last Admin Trade Name Vaughn PRN Reason Stop Dose Admin Acetaminophen 650 mg 03/10/25 13:39 03/16/25 08:53 Acetaminophen 325 Mg Tablet PO 650 mg Q6H PRN Administration Mild Pain (1-3) or Fever Acetaminophen 650 mg 03/17/25 13:40 Acetaminophen 650 Mg Suppository RECTAL Q6H PRN Mild Pain (1-3) or Fever Allopurinol 200 mg 03/11/25 09:00 03/19/25 09:48 Allopurinol 100 Mg Tablet PO Not Given DAILY [facility] Amlodipine Besylate 10 mg 03/11/25 09:00 03/19/25 09:48 Amlodipine Besylate 10 Mg Tablet PO Not Given DAILY [facility] Aspirin 81 mg 03/11/25 09:00 03/19/25 09:48 Aspirin 81 Mg Enteric Tablet PO Not Given DAILY [facility] Atorvastatin Calcium 80 mg 03/11/25 21:00 03/18/25 20:44 Atorvastatin 40 Mg Tablet PO Not Given HS [facility] Benzonatate 100 mg 03/10/25 13:39 Benzonatate 100 Mg Capsule PO TID PRN Cough Bisacodyl 10 mg 03/14/25 14:26 Bisacodyl 10 Mg Suppository RECTAL DAILY PRN Constipation Calcitonin [place] 360 units 03/18/25 09:00 03/19/25 09:48 Calcitonin [place] Inj 400 Units/2 Ml Vial SUB-Q 03/20/25 21:01 360 units Q12HR [facility] Administration Guaifenesin 600 mg 03/10/25 13:39 Guaifenesin 12 Hr 600 Mg Tabcr PO Q12HR PRN Congestion Albumin Human 50 mls @ 999 mls/hr 03/10/25 12:49 Albutein IVPB 04/09/25 12:48 Q10M PRN HYPOTENSION Cefepime HCl 1 gm/ Sodium 50 mls @ 100 mls/hr 03/17/25 14:30 03/18/25 17:25 Chloride IVPB 100 mls/hr DAILY@1800 [facility] Administration Montelukast Sodium 10 mg 03/11/25 21:00 07/22/25 20:45 Montelukast Sodium 10 Mg Tablet PO Not Given HS [facility] Polyethylene Glycol 17 gm 03/14/25 14:26 03/16/25 17:41 Polyethylene Glycol 3350 17 Gm Powd.Pack PO 17 gm DAILY PRN Administration Constipation Fluticasone/Salmeterol 2 puff 03/11/25 08:00 03/19/25 10:12 Fluticasone/Salmeterol 115-21 Mcg Inhaler 1 Puff INHALATION Not Given Q12HRT [facility] Sevelamer Carbonate 0.8 gm 03/19/25 08:00 03/19/25 09:48 Sevelamer Carbonate 0.8 Gm Oral Powder Packet PO Not Given TIDWM [facility] Radiology Results: ITS Impressions Head CT 03/10/25 07:36 Impression: No intracranial hemorrhage, mass, or acute infarct. Atrophy and chronic white matter changes, as above. Chest X-Ray 03/16/25 09:51 Impression: Possible mild bibasilar pulmonary edema. Consider pneumonia in the left lung base. Brain MRI 03/18/25 15:19 IMPRESSION: Severely motion limited examination. No definite evidence of large intracranial hemorrhage or large vessel infarct. Displaced lens in the right globe. Consider repeat imaging, with sedation if clinically appropriate. Labs Labs: Laboratory Results - last 24 hr 03/18/25 03/19/25 09:44 04:25 WBC 9.6 RBC 4.71 Hgb 12.4 Hct 39.2 MCV 83.2 MCH 26.3 MCHC 31.6 L RDW 16.6 H Plt Count 235 MPV 10.4 Sodium 136 L Potassium 4.4 Chloride 101 Carbon Dioxide 20 L Anion Gap 15 H BUN 48 H D Creatinine 10.80 H Estim Creat Clear Calc 5 Estimated GFR 4 L Glucose 138 H Calcium 9.2 Phosphorus 6.3 H Albumin 3.6 Vitamin D 25-Hydroxy 60.8 PTH Intact 434.8 H
--- NOTE | 2025-03-19 10:53 | PCOTNOTE ---
Patient unable to participate, very difficult to arouse, unable to follow commands, Per RN, not appropriate and having a repeated chest x-ray at this time.
--- NOTE | 2025-03-19 11:35 | WPDNEUROPN ---
Subjective Date/time seen: 03/19/25 11:35 Interval history: 58 years old being treated for the end-stage renal disease with fluctuating mental status was initially seen on March 16, 2022. Seen by the carbonizer yesterday for the ongoing diagnosis of end-stage renal disease and with the information as per the outpatient dialysis center her mentation seems to fluctuate even at baseline. Most recent electrolytes on 03/19 revealed sodium 136 potassium 4.4 chloride 101 CO2 20 BUN 48 with creatinine of 10.80 and GFR only 4 calcium 9.2 phosphorus 6.3 MRI of the brain discomfort mild because severe motion artifacts but she had the CT scan of the head on 03/10 which was negative for the bleed. On examination today she is not following verbal commands appropriately, laying in bed with legs hanging over the bed, and extraocular movements are spontaneously disc conjugate, she is able to move her upper and lower extremities spontaneously by herself not on command. Reflexes are symmetric and plantar responses are equivocal. Considering the change in mental status the only thing I can advise is the EEG to rule out the possibility of the seizures I advised the nurse to get the EEG done today in [facility] treatment will be continued as such. Objective Data Vital Signs Vital Signs: Vital Signs - 24 hr 03/18/25 12:00 03/18/25 14:00 03/18/25 16:00 Temperature 36.6 C Pulse Rate 127 H 112 H 104 H Respiratory Rate 20 Blood Pressure 122/56 L Pulse Oximetry 99 Oxygen Delivery 03/18/25 20:01 03/18/25 20:50 03/18/25 20:59 Temperature 36.4 C Pulse Rate 107 H 108 H Respiratory Rate 18 Blood Pressure 136/61 Pulse Oximetry 99 Oxygen Delivery Room Air 03/19/25 00:03 03/19/25 04:00 03/19/25 04:10 Temperature 36.6 C Pulse Rate 103 H 108 H 115 H Respiratory Rate 18 Blood Pressure 127/77 Pulse Oximetry 96 Oxygen Delivery Intake/Output Intake/Output: Intake & Output 03/16/25 03/17/25 03/18/25 03/19/25 23:59 23:59 23:59 23:59 Intake Total 305 50 0 0 Output Total 0 2000 0 0 Balance 305 -1950 0 0 Meds/Results Medications: Active Medications Generic Name Dose Route Start Last Admin Trade Name Freq PRN Reason Stop Dose Admin Acetaminophen 650 mg 03/10/25 13:39 03/16/25 08:53 Acetaminophen 325 Mg Tablet PO 650 mg Q6H PRN Administration Mild Pain (1-3) or Fever Acetaminophen 650 mg 03/17/25 13:40 Acetaminophen 650 Mg Suppository RECTAL Q6H PRN Mild Pain (1-3) or Fever Allopurinol 200 mg 03/11/25 09:00 03/19/25 09:48 Allopurinol 100 Mg Tablet PO Not Given DAILY [facility] Amlodipine Besylate 10 mg 03/11/25 09:00 03/19/25 09:48 Amlodipine Besylate 10 Mg Tablet PO Not Given DAILY [facility] Aspirin 81 mg 03/11/25 09:00 03/19/25 09:48 Aspirin 81 Mg Enteric Tablet PO Not Given DAILY [facility] Atorvastatin Calcium 80 mg 03/11/25 21:00 03/18/25 20:44 Atorvastatin 40 Mg Tablet PO Not Given HS [facility] Benzonatate 100 mg 03/10/25 13:39 Benzonatate 100 Mg Capsule PO TID PRN Cough Bisacodyl 10 mg 03/14/25 14:26 Bisacodyl 10 Mg Suppository RECTAL DAILY PRN Constipation Calcitonin [place] 360 units 03/18/25 09:00 03/19/25 09:48 Calcitonin [place] Inj 400 Units/2 Ml Vial SUB-Q 03/20/25 21:01 360 units Q12HR [facility] Administration Guaifenesin 600 mg 03/10/25 13:39 Guaifenesin 12 Hr 600 Mg Tabcr PO Q12HR PRN Congestion Albumin Human 50 mls @ 999 mls/hr 03/10/25 12:49 Albutein IVPB 04/09/25 12:48 Q10M PRN HYPOTENSION Cefepime HCl 1 gm/ Sodium 50 mls @ 100 mls/hr 03/17/25 14:30 03/18/25 17:25 Chloride IVPB 100 mls/hr DAILY@1800 [facility] Administration Montelukast Sodium 10 mg 03/11/25 21:00 03/18/25 20:45 Montelukast Sodium 10 Mg Tablet PO Not Given HS [facility] Polyethylene Glycol 17 gm 03/14/25 14:26 03/16/25 17:41 Polyethylene Glycol 3350 17 Gm Powd.Pack PO 17 gm DAILY PRN Administration Constipation Fluticasone/Salmeterol 2 puff 03/11/25 08:00 03/19/25 10:12 Fluticasone/Salmeterol 115-21 Mcg Inhaler 1 Puff INHALATION Not Given Q12HRT [facility] Sevelamer Carbonate 0.8 gm 03/19/25 08:00 03/19/25 09:48 Sevelamer Carbonate 0.8 Gm Oral Powder Packet PO Not Given TIDWM [facility] Radiology Results: ITS Impressions Head CT 03/10/25 07:36 Impression: No intracranial hemorrhage, mass, or acute infarct. Atrophy and chronic white matter changes, as above. Brain MRI 03/18/25 15:19 IMPRESSION: Severely motion limited examination. No definite evidence of large intracranial hemorrhage or large vessel infarct. Displaced lens in the right globe. Consider repeat imaging, with sedation if clinically appropriate. Labs Labs: Laboratory Results - last 24 hr 03/19/25 04:25 WBC 9.6 RBC 4.71 Hgb 12.4 Hct 39.2 MCV 83.2 MCH 26.3 MCHC 31.6 L RDW 16.6 H Plt Count 235 MPV 10.4 Sodium 136 L Potassium 4.4 Chloride 101 Carbon Dioxide 20 L Anion Gap 15 H BUN 48 H D Creatinine 10.80 H Estim Creat Clear Calc 5 Estimated GFR 4 L Glucose 138 H Calcium 9.2 Phosphorus 6.3 H Albumin 3.6
--- NOTE | 2025-03-19 12:16 | PC.NURSE ---
Pt is unable to get EEG done as long as she is not following commands and unable to sit still for procedure. Told worker who does EEGs to check back in daily and we will let them know when pt is appropriate to do test.
--- NOTE | 2025-03-19 12:17 | PCNFU ---
Nutrition Follow-Up Complete: Inadequate oral intake related to loss of appetite, dialysis as evidenced by intakes 5% PO intakes >50% - Goal is not being met Goal: Pt current nutrition is Renal diet, Nepro BID (420 kcal, 20 g pro). Nutrition recommendation: NG tube feeding recommendations if decided by provider: Nepro @ 45 ml/h with flushes 100 ml q 4 h Last recorded weight is 96.8 kg. Bowel Motility: +1 BM 12/16 Labs Reviewed: Na 135, PO4, 6.6, BUN 32, Cre 9.03, Glu 131 Meds Noted: Singulair, lipitor Skin: No skin issues Additional Notes: Pt is lethargic and not eating, per provider may want to do NG tube feedings. If NG tube feeding is ordered recommend Nepro @45 ml/h with 100 ml g flushes Q4h to provide 1782 kcal, 80 g protein, 1320 total water. Monitoring intakes, weights, labs, supplement tolerance, plan of care Follow up in 3 days
--- NOTE | 2025-03-19 12:25 | PCDIET ---
TUBE FEEDING RECOMMENDATION: Nepro @45 ml/h with 100 ml g flushes Q4h to provide 1782 kcal, 80 g protein, 1320 total water.
--- NOTE | 2025-03-19 12:46 | PCNEURO ---
Still unable to obtain EEG due to patient AMS
[2025-03-19 13:08] LABS: ACE 41 U/L (14-82)
--- NOTE | 2025-03-19 15:10 | PM.IMPN ---
Progress Note: A&P Assessment and Plan (1) Altered mental status: Qualifiers: Altered mental status type: disorientation Qualified Code(s): R41.0 - Disorientation, unspecified Code(s): R41.82 - Altered mental status, unspecified Status: Acute Assessment and Plan: not responding to commands and non verbal refused meds and food CT head unremarkable, B12 wnl and continue treatment for pneumonia EEG pending Neurology following and eval noted (2) Pneumonia: Qualifiers: Laterality: left Lung location: lower lobe of lung Pneumonia type: due to unspecified organism Qualified Code(s): J18.9 - Pneumonia, unspecified organism Code(s): J18.9 - Pneumonia, unspecified organism Status: Acute Assessment and Plan: - CXR: Cardiomegaly with congestive leti and minimal interstitial thickening which is suggestive of cardiac decompensation and pulmonary edema. Left basilar atelectasis versus pneumonia with possible. Clinical correlation and follow-up advised. - started on CAP tx: Ceftriaxone and doxycycline on 03/10 - MRSA negative, repeat CXR showed LLL PN A Continue Cefepime no fever BC still pending (3) Pulmonary edema: Qualifiers: Chronicity: acute Qualified Code(s): J81.0 - Acute pulmonary edema Code(s): J81.1 - Chronic pulmonary edema Status: Acute Assessment and Plan: - no echo on file, ordered - CXR concerning for cardiomegaly with congestive leti and minimal interstitial thickening which is suggestive of cardiac decompensation and pulmonary edema. ECHO showed hyperdynamic left ventricle with normal size - fluid management via dialysis - monitor I&Os and daily weights - trend renal function continue dialysis (4) ESRD on hemodialysis: Code(s): N18.6 - End stage renal disease; Z99.2 - Dependence on renal dialysis Status: Chronic Assessment and Plan: - creatinine 8.64, BUN 18, GFR 5 continue dialysis nephrology following trend bmp (5) HTN (hypertension): Code(s): I10 - Essential (primary) hypertension Status: Acute Assessment and Plan: - chronic, currently 152/85 - continue home medications: Amlodipine - monitor Plan FTT/protein energy malnutritin patient not taking orally since [place]ay disucssed with sonPatrice who conferred with other members of the family and consented to tube feeding in [facility] meantime NG tube , dietitian consulted for tube feeding monitor Diet: Renal GI Prophylaxis: NA DVT Prophylaxis: SCDs IV fluids: Lines/Tubes: peripheral IV Code Status: full code Subjective Date/time seen: 03/19/25 15:10 Interval history: Patient comfortable at bedside but not responding of following commands Nurse noted she refused foods and medicine since yesterday reached out to his son to discussed tube feeding adn he will confere with other siblings and get back to me Review of Systems Review of Systems: All systems reviewed & are unremarkable except as noted in HPI and below (Limited, altered) Exam Narrative: A/Ox1. +thrill and bruit to graft in the RUE. more alert today but not interactive Const: General: comfortable and no acute distress Other: , female, nontoxic appearance HENMT: Face/Nose/Sinus: Normal nares present Mouth: Yes moist mucous membranes Eyes: General: appearance normal, both eyes and all related structures Sclera: sclerae normal Pupils: Equal, round and reactive pupils present EOM: EOMs intact bilaterally Resp: Effort & Inspection: normal respiratory effort Auscultation: clear to auscultation bilaterally and diminished lung sounds Cardio: Rate: regular rate and tachycardic Rhythm: regular rhythm Other: S1-S2 present without murmur, rub, ectopy GI: Auscultation: normal bowel sounds Other: Abdomen soft, nondistended, nontender. Normoactive bowel sounds in all quadrants. Skin: General skin exam: normal color and no rashes or lesions noted Wounds: no wounds Neuro: Cranial nerves: Yes Equal, round and reactive pupils present Speech: normal speech Motor exam (neuro): 5/5 motor strength present throughout Sensory Exam: normal sensation Other: A&O x1, somnolent Extrem: General: normal to inspection Other: + thrill and bruit to graft in the left upper extremity Psych: Mental Status: mental status grossly normal Affect: normal affect Other: more alert today, still confused Objective Data Vital Signs Vital Signs: Vital Signs - 24 hr 03/18/25 16:00 03/18/25 20:01 03/18/25 20:50 Temperature Pulse Rate 104 H 107 H Respiratory Rate Blood Pressure Pulse Oximetry Oxygen Delivery Room Air 03/18/25 20:59 03/19/25 00:03 03/19/25 04:00 Temperature 97.6 F Pulse Rate 108 H 103 H 108 H Respiratory Rate 18 Blood Pressure 136/61 Pulse Oximetry 99 Oxygen Delivery 03/19/25 04:10 03/19/25 08:00 03/19/25 08:00 Temperature 97.9 F Pulse Rate 115 H 112 H Respiratory Rate 18 Blood Pressure 127/77 Pulse Oximetry 96 Oxygen Delivery Room Air 03/19/25 12:00 03/19/25 14:00 Temperature 97.4 F L Pulse Rate 114 H 117 H Respiratory Rate 16 Blood Pressure 128/92 H Pulse Oximetry 100 Oxygen Delivery Intake/Output Intake/Output: Intake & Output 03/16/25 03/17/25 03/18/25 03/19/25 23:59 23:59 23:59 23:59 Intake Total 305 50 0 0 Output Total 0 2000 0 0 Balance 305 -1950 0 0 Meds/Results Medications: Active Medications Generic Name Dose Route Start Last Admin Trade Name Freq PRN Reason Stop Dose Admin Acetaminophen 650 mg 03/10/25 13:39 03/16/25 08:53 Acetaminophen 325 Mg Tablet PO 650 mg Q6H PRN Administration Mild Pain (1-3) or Fever Acetaminophen 650 mg 03/17/25 13:40 Acetaminophen 650 Mg Suppository RECTAL Q6H PRN Mild Pain (1-3) or Fever Allopurinol 200 mg 03/11/25 09:00 03/19/25 09:48 Allopurinol 100 Mg Tablet PO Not Given DAILY [facility] Amlodipine Besylate 10 mg 03/11/25 09:00 03/19/25 09:48 Amlodipine Besylate 10 Mg Tablet PO Not Given DAILY [facility] Aspirin 81 mg 03/11/25 09:00 03/19/25 09:48 Aspirin 81 Mg Enteric Tablet PO Not Given DAILY [facility] Atorvastatin Calcium 80 mg 03/11/25 21:00 03/18/25 20:44 Atorvastatin 40 Mg Tablet PO Not Given HS [facility] Benzonatate 100 mg 03/10/25 13:39 Benzonatate 100 Mg Capsule PO TID PRN Cough Bisacodyl 10 mg 03/14/25 14:26 Bisacodyl 10 Mg Suppository RECTAL DAILY PRN Constipation Calcitonin [place] 360 units 03/18/25 09:00 03/19/25 09:48 Calcitonin [place] Inj 400 Units/2 Ml Vial SUB-Q 03/20/25 21:01 360 units Q12HR [facility] Administration Guaifenesin 600 mg 03/10/25 13:39 Guaifenesin 12 Hr 600 Mg Tabcr PO Q12HR PRN Congestion Albumin Human 50 mls @ 999 mls/hr 03/10/25 12:49 Albutein IVPB 04/09/25 12:48 Q10M PRN HYPOTENSION Cefepime HCl 1 gm/ Sodium 50 mls @ 100 mls/hr 03/17/25 14:30 03/18/25 17:25 Chloride IVPB 100 mls/hr DAILY@1800 [facility] Administration Montelukast Sodium 10 mg 03/11/25 21:00 03/18/25 20:45 Montelukast Sodium 10 Mg Tablet PO Not Given HS [facility] Polyethylene Glycol 17 gm 03/14/25 14:26 03/16/25 17:41 Polyethylene Glycol 3350 17 Gm Powd.Pack PO 17 gm DAILY PRN Administration Constipation Fluticasone/Salmeterol 2 puff 03/11/25 08:00 03/19/25 10:12 Fluticasone/Salmeterol 115-21 Mcg Inhaler 1 Puff INHALATION Not Given Q12HRT [facility] Sevelamer Carbonate 0.8 gm 03/19/25 08:00 03/19/25 12:02 Sevelamer Carbonate 0.8 Gm Oral Powder Packet PO Not Given TIDWM [facility] Radiology Results: ITS Impressions Head CT 03/10/25 07:36 Impression: No intracranial hemorrhage, mass, or acute infarct. Atrophy and chronic white matter changes, as above. Brain MRI 03/18/25 15:19 IMPRESSION: Severely motion limited examination. No definite evidence of large intracranial hemorrhage or large vessel infarct. Displaced lens in the right globe. Consider repeat imaging, with sedation if clinically appropriate. Chest X-Ray 03/19/25 11:43 Impression: 1: Retrocardiac opacification may represent pneumonia and/or atelectasis. Labs Labs: Laboratory Results - last 24 hr 03/18/25 03/19/25 09:44 04:25 WBC 9.6 RBC 4.71 Hgb 12.4 Hct 39.2 MCV 83.2 MCH 26.3 MCHC 31.6 L RDW 16.6 H Plt Count 235 MPV 10.4 Sodium 136 L Potassium 4.4 Chloride 101 Carbon Dioxide 20 L Anion Gap 15 H BUN 48 H D Creatinine 10.80 H Estim Creat Clear Calc 5 Estimated GFR 4 L Glucose 138 H Calcium 9.2 Phosphorus 6.3 H Albumin 3.6 Angiotensin Convert Enz 41 Quality VTE Prophylaxis VTE prophylaxis: mechanical ordered
--- NOTE | 2025-03-19 15:12 | PCSTNOTE ---
Attempted to see patient in AM and PM this date Patient remains unable to follow directives or complete oral motor movement for safe assessment of swallow function to complete a bedside swallow evaluation.
[2025-03-19] MEDS: CEFEPIME 1 GM in SODIUM CHLORIDE 0.9% IV 50 ML 100 ML IVPB (17:54)
--- NOTE | 2025-03-19 18:24 | PC.NURSE ---
Provider put in an order to place an NG tube. Tried [address] tube and was unsuccessful. Order was obtained for an Xray guided tube placement tomorrow
[2025-03-19] MEDS: SODIUM CHLORIDE 0.9% IV 500 ML 75 ML IV CONT (18:34)
--- NOTE | 2025-03-19 19:07 | PC.NURSE ---
Called into patients room per family, pt was tremoring and unable to focus on staff. Pt appeared to be having a new onset of seizures. Rapid Response called.
--- NOTE | 2025-03-19 19:09 | PM.CCN ---
Critical Care Event Note Summary Code activated: No Narrative: Rapid response called for seizure-like activity Upon arrival patient is seizing with apneic periods vital signs stable, patient given Ativan and Keppra load. neurology updated Seizure precautions added Family at bedside updated on plan of care, questions answered Critical Care Time Critical Care Time: Yes Total Critical Care Time: 35 Due to a high probability of clinically significant, life threatening deterioration, the patient required my highest level of preparedness to intervene emergently and I personally spent this critical care time directly and personally managing the patient. This critical care time included obtaining a history; examining the patient; pulse oximetry; ordering and review of studies; arranging urgent treatment with development of a management plan; evaluation of patient's response to treatment; frequent reassessment; and discussions with other providers. It was exclusive of separately billable procedures and treating other patients and teaching time. Please see Assessment and Plan section and the rest of the note for further information on patient assessment and treatment. This case had a high probability of a clinically significant, sudden, or life threatening deterioration of this patient's condition which required my full and direct attention, intervention and personal management. Critical care time: 30 - 74 mins
[2025-03-19] MEDS: LORazepam INJ (*CRX) 2 MG/ML VIAL IV PUSH ×2 (19:10→19:25)
[2025-03-19] MEDS: levETIRAcetam 1000MG/NACL100ML 1,000 MG/100 ML BAG 400 MG IVPB (19:13)
[2025-03-20] VITALS (24 sets, daily range): BP systolic 100–179; BP diastolic 49–93; PULSE 120–129; RESP 16–20; TEMP 36.4–38; O2SAT 96–100
[2025-03-20 05:45] LABS: Hematocrit 39.2 % (37.0-47.0); Hemoglobin 12.3 g/dL (12.0-15.0); Mean Corpuscular HGB Conc 31.4 g/dl (32-36); Mean Corpuscular Hemoglobin 26.0 pg (26-34); Mean Corpuscular Volume 82.9 fl (80-100); Platelet Count Result 238 k/mm3 (150-375); Red Blood Count 4.73 M/mm3 (4.2-5.4); White Blood Count 10.0 K/mm3 (4.5-10.0)
[2025-03-20 06:09] LABS: Alanine Aminotransferase 13 U/L (6-35); Albumin Level 3.7 g/dL (3.5-5.1); Alkaline Phosphatase 107 U/L (38-126); Anion Gap 18 mmol/L (4-12); Aspartate Amino Transferase 43 U/L (14-36); Bilirubin,Total 0.9 mg/dL (0.2-1.3); Blood Urea Nitrogen 63 mg/dL (7-17); Calcium 10.1 mg/dL (8.4-10.2); Carbon Dioxide 19 mmol/L (22-30); Chloride 102 mmol/L (98-107); Estimated CRCL calculation 4 ml/min; Estimated Glomerular Filt Rate 3; Glucose 170 mg/dL (65-110); Magnesium 2.2 mg/dL (1.6-2.3); Potassium 4.7 mmol/L (3.4-5.0); Sodium 139 mmol/L (137-145); Total Protein 7.6 g/dL (6.3-8.2)
[2025-03-20 06:17] LABS: Procalcitonin 3.7 ng/mL
[2025-03-20 06:27] LABS: CRP 20.3 mg/dL (<1.0)
--- NOTE | 2025-03-20 07:44 | PC.NURSE ---
RN was briefed about patient's previous seizure the evening before (03/19) and talked to MD Parrish about having scheduled doses of Keppra. Shivani gave telephone orders for RN to give patient said medications.
--- NOTE | 2025-03-20 08:08 | PC.NURSE ---
RN called daughter Gerald because chart has her under person to notify. RN obtained consent for lumbar puncture and had RN Heraclio witness.
--- NOTE | 2025-03-20 08:18 | PC.NURSE ---
RN was briefed about patient's previous seizure the evening before (03/19) and talked to MD Sarkar about having PRN Ativan and scheduled doses of Keppra. Antonina gave telephone orders for RN to give patient said medications.
--- NOTE | 2025-03-20 08:32 | PM.PNNEP ---
Progress Note: A&P Assessment and Plan (1) End stage renal disease: Code(s): N18.6 - End stage renal disease Status: Chronic Assessment and Plan: HD labs okay. Volume status is good To get dialysis today and Monday potassium doing well at 4.7 volume status looks okay. (2) Altered mental status: Qualifiers: Altered mental status type: disorientation Qualified Code(s): R41.0 - Disorientation, unspecified Code(s): R41.82 - Altered mental status, unspecified Status: Acute Assessment and Plan: reportedly noted over the last 2 weeks clinically worse on 03/10 with associated agitation/combative behavior however, per outpatient dialysis center, her mentation seems to fluctuate even at baseline but she is usually not combative/uncooperative CT of brain noted: no intracranial hemorrhage, mass, or acute infarct atrophy and chronic white matter changes related to possible infection(?): admission UA not suggestive of UTI however, repeat UA (03/12) noted questionable pneumonia on CXR per hospitalist encephalopathy due to pneumonia. It seems worse today. Sodium, calcium, and bicarbonate are okay. B12, folate, and TSH are all okay. Calcium level is normal. Blood gas looked okay. Oxygen was a little bit low but on O2 sat reading she is generally running between 97 and 100. Neurology consult has been ordered. Await the visit. on empiric antibiotics the patient is well dialyzed and ESRD should not contribute to her altered mental status neurology saw the patient. I talked with Dr. Parrish yesterday. He ordered an EEG. Talked with Nursing today. Since the seizure the patient is going to get other tests by Neurology as well. (3) Pulmonary edema: Qualifiers: Chronicity: acute Qualified Code(s): J81.0 - Acute pulmonary edema Code(s): J81.1 - Chronic pulmonary edema Status: Acute Assessment and Plan: as noted by admission CXR: cardiomegaly with congestive leti and minimal interstitial thickening which is suggestive of cardiac decompensation and pulmonary edema however, no evidence of respiratory distress or hypoxia will repeat the chest x-ray today to help with decision of fluid removal tomorrow Echo results noted: there is normal left ventricular size with hyperdynamic systolic function left ventricular ejection fraction is visually estimated to be greater than 70% right ventricle is normal in size and systolic function no significant valvular abnormalities Clinically the patient seems euvolemic. Blood pressure is doing well. She does not require oxygen Chest x-ray yesterday shows retrocardiac opacification, possibly pneumonia or atelectasis. (4) Pneumonia: Qualifiers: Laterality: left Lung location: lower lobe of lung Pneumonia type: due to unspecified organism Qualified Code(s): J18.9 - Pneumonia, unspecified organism Code(s): J18.9 - Pneumonia, unspecified organism Status: Acute Assessment and Plan: some suggestion by admission CXR and mentioned again in recent chest x-ray follow culture data - negative to date on ceftriaxone and doxycycline on evidence of hypoxia or respiratory distress on no oxygen. (5) HTN (hypertension): Code(s): I10 - Essential (primary) hypertension Status: Acute Assessment and Plan: systolic looks better. (6) Anemia: Code(s): D64.9 - Anemia, unspecified Status: Chronic Assessment and Plan: due to ESRD H/H supratherapeutic at this time holding Epogen for now hemoglobin 12.4 last check (7) Renal osteodystrophy: Code(s): N25.0 - Renal osteodystrophy Status: Acute Assessment and Plan: Phosphorus level is high. I ordered sevelamer but the patient cannot take because of her mental status. She is not eating much anyway She is getting a tube later today for enteral feedings. Please use Nepro or [employer] Renal which would be low phosphorus Subjective Date/time seen: 03/20/25 08:32 Interval history: Patient is sleepy today. Nursing says that she had a seizure last night Exam Narrative: General: Well-developed female in NAD, sleepy. Heart: normal S1 and S2; no rub or gallop Lungs: Clear to auscultation Abdomen: soft, nontender, nondistended, positive bowel sounds Extremities: no edema or cyanosis Skin: no rash or subcu nodules Neck: supple Objective Data Vital Signs Vital Signs: Vital Signs - 24 hr 03/19/25 12:00 03/19/25 14:00 03/19/25 16:00 Temperature 97.4 F L Pulse Rate 114 H 117 H 108 H Respiratory Rate 16 Blood Pressure 128/92 H Pulse Oximetry 100 Oxygen Delivery 03/19/25 19:05 03/19/25 20:00 03/19/25 20:00 Temperature Pulse Rate 116 H 116 H Respiratory Rate 25 H Blood Pressure 147/95 H Pulse Oximetry 100 Oxygen Delivery Room Air Room Air 03/19/25 22:00 03/20/25 00:00 03/20/25 04:00 Temperature 98.6 F Pulse Rate 120 H 128 H 124 H Respiratory Rate 18 Blood Pressure 150/85 H Pulse Oximetry 100 Oxygen Delivery 03/20/25 06:00 Temperature 98.2 F Pulse Rate 122 H Respiratory Rate 18 Blood Pressure 142/75 H Pulse Oximetry 96 Oxygen Delivery Intake/Output Intake/Output: Intake & Output 03/17/25 03/18/25 03/19/25 03/20/25 23:59 23:59 23:59 23:59 Intake Total 50 50 0 Output Total 1999 0 0 Balance -1950 50 0 Meds/Results Medications: Active Medications Generic Name Dose Route Start Last Admin Trade Name Freq PRN Reason Stop Dose Admin Acetaminophen 650 mg 03/10/25 13:39 03/16/25 08:53 Acetaminophen 325 Mg Tablet PO 650 mg Q6H PRN Administration Mild Pain (1-3) or Fever Acetaminophen 650 mg 03/17/25 13:40 Acetaminophen 650 Mg Suppository RECTAL Q6H PRN Mild Pain (1-3) or Fever Allopurinol 200 mg 03/11/25 09:00 03/20/25 08:31 Allopurinol 100 Mg Tablet PO Not Given DAILY [facility] Amlodipine Besylate 10 mg 03/11/25 09:00 03/20/25 08:31 Amlodipine Besylate 10 Mg Tablet PO Not Given DAILY [facility] Aspirin 81 mg 03/11/25 09:00 03/20/25 08:31 Aspirin 81 Mg Enteric Tablet PO Not Given DAILY [facility] Atorvastatin Calcium 80 mg 03/11/25 21:00 03/19/25 20:10 Atorvastatin 40 Mg Tablet PO Not Given HS [facility] Benzonatate 100 mg 03/10/25 13:39 Benzonatate 100 Mg Capsule PO TID PRN Cough Bisacodyl 10 mg 03/14/25 14:26 Bisacodyl 10 Mg Suppository RECTAL DAILY PRN Constipation Calcitonin [place] 360 units 03/18/25 09:00 03/19/25 20:35 Calcitonin [place] Inj 400 Units/2 Ml Vial SUB-Q 03/20/25 21:01 360 units Q12HR [facility] Administration Guaifenesin 600 mg 03/10/25 13:39 Guaifenesin 12 Hr 600 Mg Tabcr PO Q12HR PRN Congestion Albumin Human 50 mls @ 999 mls/hr 03/10/25 12:49 Albutein IVPB 04/09/25 12:48 Q10M PRN HYPOTENSION Cefepime HCl 1 gm/ Sodium 50 mls @ 100 mls/hr 03/17/25 14:30 03/19/25 17:54 Chloride IVPB 100 mls/hr DAILY@1800 [facility] Administration Levetiracetam 750 mg/ Dextrose 107.5 mls @ 430 mls/hr 03/20/25 09:00 IVPB Q12HR [facility] Lorazepam 2 mg 03/19/25 19:18 03/19/25 19:25 Lorazepam Inj (*Crx) 2 Mg/Ml Vial IV PUSH 2 mg Q2HR PRN Administration seizure Miscellaneous Information 1 each 03/20/25 00:01 03/20/25 07:43 Doxycycline Needs To Be Renewed Or It Will Automatically Discontinue. XX 04/19/25 00:00 Not Given CLARIFY [facility] Montelukast Sodium 10 mg 03/11/25 21:00 03/19/25 20:10 Montelukast Sodium 10 Mg Tablet PO Not Given HS [facility] Polyethylene Glycol 17 gm 03/14/25 14:26 03/16/25 17:41 Polyethylene Glycol 3350 17 Gm Powd.Pack PO 17 gm DAILY PRN Administration Constipation Fluticasone/Salmeterol 2 puff 03/11/25 08:00 03/20/25 08:30 Fluticasone/Salmeterol 115-21 Mcg Inhaler 1 Puff INHALATION Not Given Q12HRT [facility] Sevelamer Carbonate 0.8 gm 03/19/25 08:00 03/19/25 17:53 Sevelamer Carbonate 0.8 Gm Oral Powder Packet PO Not Given TIDWM [facility] Radiology Results: ITS Impressions Head CT 03/10/25 07:36 Impression: No intracranial hemorrhage, mass, or acute infarct. Atrophy and chronic white matter changes, as above. Brain MRI 03/18/25 15:19 IMPRESSION: Severely motion limited examination. No definite evidence of large intracranial hemorrhage or large vessel infarct. Displaced lens in the right globe. Consider repeat imaging, with sedation if clinically appropriate. Chest X-Ray 03/19/25 11:43 Impression: 1: Retrocardiac opacification may represent pneumonia and/or atelectasis. Labs Labs: Laboratory Results - last 24 hr 03/18/25 03/19/25 03/20/25 09:44 19:06 05:15 WBC 10.0 RBC 4.73 Hgb 12.3 Hct 39.2 MCV 82.9 MCH 26.0 MCHC 31.4 L RDW 16.8 H Plt Count 238 MPV 11.0 H Sodium 139 Potassium 4.7 Chloride 102 Carbon Dioxide 19 L Anion Gap 18 H BUN 63 H D Creatinine 12.74 H Estim Creat Clear Calc 4 Estimated GFR 3 L Glucose 170 H POC Capillary Glucose 176 H Calcium 10.1 Phosphorus 6.9 H Magnesium 2.2 Total Bilirubin 0.9 AST 43 H ALT 13 Alkaline Phosphatase 107 C-Reactive Protein 20.3 H Total Protein 7.6 Albumin 3.7 Angiotensin Convert Enz 41 Procalcitonin 3.7
--- NOTE | 2025-03-20 08:34 | PC.NURSE ---
Dialysis called and asked to hold anti-hypersensitives. RN held all PO medications due to patient's orientation and abilities.
[2025-03-20] MEDS: CALCITONIN SALMON INJ 400 UNITS/2 ML VIAL 360 UNITS SUB-Q ×2 (08:50→21:15)
--- NOTE | 2025-03-20 09:26 | PC.NURSE ---
RN called dialysis to make sure patient was on the schedule for dialysis for the day and dialysis said patient would go later in the day.
--- NOTE | 2025-03-20 09:27 | PCPTNOTE ---
The patient treatment was not able to be completed on 03/20/2025 due to patient not appropriate for therapy, patient not able to follow any cues or participate with therapy. Will plan to continue treatment per plan of care.
--- NOTE | 2025-03-20 09:49 | PC.NURSE ---
Patient left room for dialysis at 0935.
--- NOTE | 2025-03-20 10:45 | PM.IMPN ---
Progress Note: A&P Assessment and Plan (1) Altered mental status: Qualifiers: Altered mental status type: disorientation Qualified Code(s): R41.0 - Disorientation, unspecified Code(s): R41.82 - Altered mental status, unspecified Status: Acute Assessment and Plan: not responding to commands and non verbal refused meds and food CT head unremarkable, B12 wnl and Stopped Cefepime today in case patient has Cefepime related neurotoxicity EEG pending LP pending and CSF studies ordered Neurology following and eval noted (2) Pneumonia: Qualifiers: Laterality: left Lung location: lower lobe of lung Pneumonia type: due to unspecified organism Qualified Code(s): J18.9 - Pneumonia, unspecified organism Code(s): J18.9 - Pneumonia, unspecified organism Status: Acute Assessment and Plan: - CXR: Cardiomegaly with congestive leti and minimal interstitial thickening which is suggestive of cardiac decompensation and pulmonary edema. Left basilar atelectasis versus pneumonia with possible. Clinical correlation and follow-up advised. - started on CAP tx: Ceftriaxone and doxycycline on 03/10 - MRSA negative, repeat CXR showed LLL PN A stopped Cefepime today 03/20/25 no fever BC still pending (3) Pulmonary edema: Qualifiers: Chronicity: acute Qualified Code(s): J81.0 - Acute pulmonary edema Code(s): J81.1 - Chronic pulmonary edema Status: Acute Assessment and Plan: - no echo on file, ordered - CXR concerning for cardiomegaly with congestive leti and minimal interstitial thickening which is suggestive of cardiac decompensation and pulmonary edema. ECHO showed hyperdynamic left ventricle with normal size - fluid management via dialysis - monitor I&Os and daily weights - trend renal function continue dialysis (4) ESRD on hemodialysis: Code(s): N18.6 - End stage renal disease; Z99.2 - Dependence on renal dialysis Status: Chronic Assessment and Plan: - creatinine 8.64, BUN 18, GFR 5 continue dialysis nephrology following trend bmp (5) HTN (hypertension): Code(s): I10 - Essential (primary) hypertension Status: Acute Assessment and Plan: - chronic, currently 152/85 - continue home medications: Amlodipine - monitor Plan Acute encephalopathy with seizures likely de sameer seizures vs Cefepime induced neurotoxicity vs infection Cefepipme stopped and LP ordered Continue Keppra 750mg per Neuro MRI poor study but no acute changes continue monitoring and f/u on the above investifations Neuro on board FTT/protein energy malnutrition patient not taking orally since yesterday disucssed with sonPatrice who conferred with other members of the family and consented to tube feeding in [facility] meantime NG tube , dietitian consulted for tube feeding monitor Pneumonia Patient has completed 10 days of Antibiotis however discussed with Dr Franz from radiology who suspects hernia and recommended to obtain CT AP chest CT AP chest ordered f/u Diet: Renal GI Prophylaxis: NA DVT Prophylaxis: Sq Lovenox Lines/Tubes: peripheral IV Code Status: full code Subjective Date/time seen: 03/20/25 10:45 Interval history: Comfortable at bedside had seizure last night and started on Keppra Review of Systems Review of Systems: All systems reviewed & are unremarkable except as noted in HPI and below (Limited, altered) Exam Narrative: obtunded Const: General: comfortable and no acute distress Other: , female, nontoxic appearance HENMT: Face/Nose/Sinus: Normal nares present Mouth: Yes moist mucous membranes Eyes: General: appearance normal, both eyes and all related structures Sclera: sclerae normal Pupils: Equal, round and reactive pupils present EOM: EOMs intact bilaterally Resp: Effort & Inspection: normal respiratory effort Auscultation: clear to auscultation bilaterally and diminished lung sounds Cardio: Rate: regular rate and tachycardic Rhythm: regular rhythm Other: S1-S2 present without murmur, rub, ectopy GI: Auscultation: normal bowel sounds Other: Abdomen soft, nondistended, nontender. Normoactive bowel sounds in all quadrants. Skin: General skin exam: normal color and no rashes or lesions noted Wounds: no wounds Neuro: Cranial nerves: Yes Equal, round and reactive pupils present Speech: normal speech Motor exam (neuro): 5/5 motor strength present throughout Sensory Exam: normal sensation Other: Somnolent Extrem: General: normal to inspection Other: + thrill and bruit to graft in the left upper extremity Psych: Mental Status: mental status grossly normal Affect: normal affect Other: more alert today, still confused Objective Data Vital Signs Vital Signs: Vital Signs - 24 hr 03/19/25 12:00 03/19/25 14:00 03/19/25 16:00 Temperature 97.4 F L Pulse Rate 114 H 117 H 108 H Respiratory Rate 16 Blood Pressure 128/92 H Pulse Oximetry 100 Oxygen Delivery 03/19/25 19:05 03/19/25 20:00 03/19/25 20:00 Temperature Pulse Rate 116 H 116 H Respiratory Rate 25 H Blood Pressure 147/95 H Pulse Oximetry 100 Oxygen Delivery Room Air Room Air 03/19/25 22:00 03/20/25 00:00 03/20/25 04:00 Temperature 98.6 F Pulse Rate 120 H 128 H 124 H Respiratory Rate 18 Blood Pressure 150/85 H Pulse Oximetry 100 Oxygen Delivery 03/20/25 06:00 03/20/25 09:55 Temperature 98.2 F 100 F H Pulse Rate 122 H 122 H Respiratory Rate 18 16 Blood Pressure 142/75 H 170/86 H Pulse Oximetry 96 Oxygen Delivery Intake/Output Intake/Output: Intake & Output 03/17/25 03/18/25 03/19/25 03/20/25 23:59 23:59 23:59 23:59 Intake Total 50 50 0 Output Total 2000 0 0 Balance -1950 50 0 Meds/Results Medications: Active Medications Generic Name Dose Route Start Last Admin Trade Name Freq PRN Reason Stop Dose Admin Acetaminophen 650 mg 03/10/25 13:39 03/16/25 08:53 Acetaminophen 325 Mg Tablet PO 650 mg Q6H PRN Administration Mild Pain (1-3) or Fever Acetaminophen 650 mg 03/17/25 13:40 Acetaminophen 650 Mg Suppository RECTAL Q6H PRN Mild Pain (1-3) or Fever Allopurinol 200 mg 03/11/25 09:00 03/20/25 08:31 Allopurinol 100 Mg Tablet PO Not Given DAILY [facility] Amlodipine Besylate 10 mg 03/11/25 09:00 03/20/25 08:31 Amlodipine Besylate 10 Mg Tablet PO Not Given DAILY [facility] Aspirin 81 mg 03/11/25 09:00 03/20/25 08:31 Aspirin 81 Mg Enteric Tablet PO Not Given DAILY [facility] Atorvastatin Calcium 80 mg 03/11/25 21:00 03/19/25 20:10 Atorvastatin 40 Mg Tablet PO Not Given HS AD[facility] Benzonatate 100 mg 03/10/25 13:39 Benzonatate 100 Mg Capsule PO TID PRN Cough Bisacodyl 10 mg 03/14/25 14:26 Bisacodyl 10 Mg Suppository RECTAL DAILY PRN Constipation Calcitonin [place] 360 units 03/18/25 09:00 03/20/25 08:50 Calcitonin [place] Inj 400 Units/2 Ml Vial SUB-Q 03/20/25 21:01 360 units Q12HR [facility] Administration Guaifenesin 600 mg 03/10/25 13:39 Guaifenesin 12 Hr 600 Mg Tabcr PO Q12HR PRN Congestion Albumin Human 50 mls @ 999 mls/hr 03/10/25 12:49 Albutein IVPB 04/09/25 12:48 Q10M PRN HYPOTENSION Cefepime HCl 1 gm/ Sodium 50 mls @ 100 mls/hr 03/17/25 14:30 03/19/25 17:54 Chloride IVPB 100 mls/hr DAILY@1800 [facility] Administration Levetiracetam 750 mg/ Dextrose 107.5 mls @ 430 mls/hr 03/20/25 09:00 03/20/25 08:50 IVPB 430 mls/hr Q12HR [facility] Administration Lorazepam 2 mg 03/19/25 19:18 03/19/25 19:25 Lorazepam Inj (*Crx) 2 Mg/Ml Vial IV PUSH 2 mg Q2HR PRN Administration seizure Montelukast Sodium 10 mg 03/11/25 21:00 03/19/25 20:10 Montelukast Sodium 10 Mg Tablet PO Not Given HS [facility] Polyethylene Glycol 17 gm 03/14/25 14:26 03/16/25 17:41 Polyethylene Glycol 3350 17 Gm Powd.Pack PO 17 gm DAILY PRN Administration Constipation Fluticasone/Salmeterol 2 puff 03/11/25 08:00 03/20/25 08:51 Fluticasone/Salmeterol 115-21 Mcg Inhaler 1 Puff INHALATION Not Given Q12HRT [facility] Sevelamer Carbonate 0.8 gm 03/19/25 08:00 03/20/25 10:42 Sevelamer Carbonate 0.8 Gm Oral Powder Packet PO Not Given TIDWM [facility] Radiology Results: ITS Impressions Head CT 03/10/25 07:36 Impression: No intracranial hemorrhage, mass, or acute infarct. Atrophy and chronic white matter changes, as above. Brain MRI 03/18/25 15:19 IMPRESSION: Severely motion limited examination. No definite evidence of large intracranial hemorrhage or large vessel infarct. Displaced lens in the right globe. Consider repeat imaging, with sedation if clinically appropriate. Chest X-Ray 03/19/25 11:43 Impression: 1: Retrocardiac opacification may represent pneumonia and/or atelectasis. Labs Labs: Laboratory Results - last 24 hr 03/18/25 03/19/25 03/20/25 09:44 19:06 05:15 WBC 10.0 RBC 4.73 Hgb 12.3 Hct 39.2 MCV 82.9 MCH 26.0 MCHC 31.4 L RDW 16.8 H Plt Count 238 MPV 11.0 H Sodium 139 Potassium 4.7 Chloride 102 Carbon Dioxide 19 L Anion Gap 18 H BUN 63 H D Creatinine 12.74 H Estim Creat Clear Calc 4 Estimated GFR 3 L Glucose 170 H POC Capillary Glucose 176 H Calcium 10.1 Phosphorus 6.9 H Magnesium 2.2 Total Bilirubin 0.9 AST 43 H ALT 13 Alkaline Phosphatase 107 C-Reactive Protein 20.3 H Total Protein 7.6 Albumin 3.7 Angiotensin Convert Enz 41 Procalcitonin 3.7 [place] IgG 18 kDa Band Cancelled [place] IgG 23 kDa Band Cancelled [place] IgG 28 kDa Band Cancelled [place] IgG 30 kDa Band Cancelled [place] IgG 39 kDa Band Cancelled [place] IgG 41 kDa Band Cancelled [place] IgG 45 kDa Band Cancelled [place] IgG 58 kDa Band Cancelled [place] IgG 66 kDa Band Cancelled [place] IgG 93 kDa Band Cancelled [place] IgG Ab (Immblot) Cancelled [place] IgM Ab (Immblot) Cancelled [place] IgM 23 kDa Band Cancelled [place] IgM 39 kDa Band Cancelled [place] IgM 41 kDa Band Cancelled Quality VTE Prophylaxis VTE prophylaxis: mechanical ordered
--- NOTE | 2025-03-20 11:30 | PCOTNOTE ---
Patient is out of the room at this time. Patient having dialysis. Per RN, Patient is not appropriate for therapy services at this time. Patient is unable to be aroused, not following commands.
--- NOTE | 2025-03-20 13:52 | PCOTNOTE ---
Patient has returned from dialysis, Per RN, Patient is still unresponsive and unable to participate or follow any commands. Patient is not able to participate in therapy services at this time. Will notify OT/R for discharge therapy orders until Patient condition has improved.
--- NOTE | 2025-03-20 13:57 | PC.NURSE ---
Dialysis called and ended up cutting dialysis short due to clotting? Dialysis said they spoke to MD and recommended Heparin with dialysis on Monday. RN spoke to Radiology and said MD Sarkar and MD Parrish agreed on getting a chest/abdomen/pelvis CT scan, getting results, and then proceeding on to the lumbar puncture and NG tube tomorrow instead of today.
--- NOTE | 2025-03-20 18:53 | P.PNNEUR_ITS ---
Progress Note: A&P Assessment and Plan (1) Altered mental status: Qualifiers: Altered mental status type: disorientation Qualified Code(s): R41.0 - Disorientation, unspecified Code(s): R41.82 - Altered mental status, unspecified Status: Acute (2) ESRD on hemodialysis: Code(s): N18.6 - End stage renal disease; Z99.2 - Dependence on renal dialysis Status: Chronic Plan Change in mental status as described by the rapid response team yesterday possibility of seizure disorder does come to mind. I will suggest an EEG and carotid Doppler study. Her electrolytes is not show any significant abnormalities. Serum calcium was 10.1 the serum magnesium was 2.2. Her vitamin-D level was checked on 03/18/2025 was 60.8. Vitamin B12 level was checked on 03/15/2021 was 914. Neurology will follow. Subjective Date/time seen: 03/20/25 18:53 Interval history: The patient is 64-year-old Afro[place] female with history of end-stage renal disease on hemodialysis. I saw her in the hemodialysis unit while she was undergoing treatment. She has very sleepy and does not cooperate for examination. She has had a seizure-like spell last night and was started on Keppra 750 mg twice a day previously a CT scan of brain and MRI were done which did not show any abnormality. MRI was somewhat limited due to motion artifacts. There is no prior history of seizures. also there is no definite history of any stroke or transient ischemic attack. Review of Systems Review of Systems: ROS unobtainable: Yes unobtainable due to mental status Exam Narrative: The patient is asleep and on hemodialysis. She is unable to cooperate. No significant difference in the tone of upper lower limbs was noted. No involuntary movements are noted. Objective Data Vital Signs Vital Signs: Vital Signs - 24 hr 03/19/25 19:05 03/19/25 20:00 03/19/25 20:00 Temperature Pulse Rate 116 H 116 H Respiratory Rate 25 H Blood Pressure 147/95 H Pulse Oximetry 100 Oxygen Delivery Room Air Room Air Fraction of Inspired Oxygen 03/19/25 22:00 03/20/25 00:00 03/20/25 04:00 Temperature 98.6 F Pulse Rate 120 H 128 H 124 H Respiratory Rate 18 Blood Pressure 150/85 H Pulse Oximetry 100 Oxygen Delivery Fraction of Inspired Oxygen 03/20/25 06:00 03/20/25 08:00 03/20/25 08:50 Temperature 98.2 F Pulse Rate 122 H 121 H Respiratory Rate 18 Blood Pressure 142/75 H Pulse Oximetry 96 Oxygen Delivery Room Air Fraction of Inspired Oxygen 21 03/20/25 09:55 03/20/25 10:08 03/20/25 10:15 Temperature 100 F H Pulse Rate 122 H 121 H 125 H Respiratory Rate 16 Blood Pressure 170/86 H 179/93 H 160/92 H Pulse Oximetry Oxygen Delivery Fraction of Inspired Oxygen 03/20/25 10:30 03/20/25 10:45 03/20/25 11:00 Temperature Pulse Rate 125 H 121 H 125 H Respiratory Rate Blood Pressure 145/86 H 118/61 116/60 Pulse Oximetry Oxygen Delivery Fraction of Inspired Oxygen 03/20/25 11:15 03/20/25 11:30 03/20/25 12:00 Temperature Pulse Rate 127 H 127 H 123 H Respiratory Rate Blood Pressure 134/69 134/57 L Pulse Oximetry Oxygen Delivery Fraction of Inspired Oxygen 03/20/25 12:12 03/20/25 12:15 03/20/25 12:30 Temperature Pulse Rate 121 H 123 H 128 H Respiratory Rate Blood Pressure 155/86 H 149/84 H 158/78 H Pulse Oximetry Oxygen Delivery Fraction of Inspired Oxygen 03/20/25 12:36 03/20/25 12:49 03/20/25 14:00 Temperature 99 F 97.5 F L Pulse Rate 127 H 126 H 129 H Respiratory Rate 18 20 Blood Pressure 145/70 H 154/88 H Pulse Oximetry 100 Oxygen Delivery Fraction of Inspired Oxygen 03/20/25 16:00 03/20/25 16:53 Temperature Pulse Rate 125 H Respiratory Rate Blood Pressure 101/82 Pulse Oximetry Oxygen Delivery Fraction of Inspired Oxygen Intake/Output Intake/Output: Intake & Output 03/17/25 03/18/25 03/19/25 03/20/25 23:59 23:59 23:59 23:59 Intake Total 50 50 0 Output Total 2000 0 0 1600 Balance -1950 50 0 -1600 Meds/Results Medications: Active Medications Generic Name Dose Route Start Last Admin Trade Name Freq PRN Reason Stop Dose Admin Acetaminophen 650 mg 03/10/25 13:39 03/16/25 08:53 Acetaminophen 325 Mg Tablet PO 650 mg Q6H PRN Administration Mild Pain (1-3) or Fever Acetaminophen 650 mg 03/17/25 13:40 Acetaminophen 650 Mg Suppository RECTAL Q6H PRN Mild Pain (1-3) or Fever Allopurinol 200 mg 03/11/25 09:00 03/20/25 08:31 Allopurinol 100 Mg Tablet PO Not Given DAILY ADDISON Amlodipine Besylate 10 mg 03/11/25 09:00 03/20/25 08:31 Amlodipine Besylate 10 Mg Tablet PO Not Given DAILY ADDISON Aspirin 81 mg 03/11/25 09:00 03/20/25 08:31 Aspirin 81 Mg Enteric Tablet PO Not Given DAILY ADDISON Atorvastatin Calcium 80 mg 03/11/25 21:00 03/19/25 20:10 Atorvastatin 40 Mg Tablet PO Not Given HS ADDISON Benzonatate 100 mg 03/10/25 13:39 Benzonatate 100 Mg Capsule PO TID PRN Cough Bisacodyl 10 mg 03/14/25 14:26 Bisacodyl 10 Mg Suppository RECTAL DAILY PRN Constipation Calcitonin [place] 360 units 03/18/25 09:00 03/20/25 08:50 Calcitonin [place] Inj 400 Units/2 Ml Vial SUB-Q 03/20/25 21:01 360 units Q12HR ADDISON Administration Guaifenesin 600 mg 03/10/25 13:39 Guaifenesin 12 Hr 600 Mg Tabcr PO Q12HR PRN Congestion Heparin Sodium (Porcine) 5,000 units 03/20/25 21:00 Heparin Sodium 5,000 Units/Ml Vial SUB-Q Q12HR ADDISON Albumin Human 50 mls @ 999 mls/hr 03/10/25 12:49 Albutein IVPB 04/09/25 12:48 Q10M PRN HYPOTENSION Levetiracetam 750 mg/ Dextrose 107.5 mls @ 430 mls/hr 03/20/25 09:00 03/20/25 08:50 IVPB 430 mls/hr Q12HR ADDISON Administration Lorazepam 2 mg 03/19/25 19:18 03/19/25 19:25 Lorazepam Inj (*Crx) 2 Mg/Ml Vial IV PUSH 2 mg Q2HR PRN Administration seizure Montelukast Sodium 10 mg 03/11/25 21:00 03/19/25 20:10 Montelukast Sodium 10 Mg Tablet PO Not Given HS ADIDSON Polyethylene Glycol 17 gm 03/14/25 14:26 03/16/25 17:41 Polyethylene Glycol 3350 17 Gm Powd.Pack PO 17 gm DAILY PRN Administration Constipation Fluticasone/Salmeterol 2 puff 03/11/25 08:00 03/20/25 08:51 Fluticasone/Salmeterol 115-21 Mcg Inhaler 1 Puff INHALATION Not Given Q12HRT [facility] Sevelamer Carbonate 0.8 gm 03/19/25 08:00 03/20/25 17:08 Sevelamer Carbonate 0.8 Gm Oral Powder Packet PO Not Given TIDWM [facility] Radiology Results: ITS Impressions Head CT 03/10/25 07:36 Impression: No intracranial hemorrhage, mass, or acute infarct. Atrophy and chronic white matter changes, as above. Brain MRI 03/18/25 15:19 IMPRESSION: Severely motion limited examination. No definite evidence of large intracranial hemorrhage or large vessel infarct. Displaced lens in the right globe. Consider repeat imaging, with sedation if clinically appropriate. Chest X-Ray 03/19/25 11:43 Impression: 1: Retrocardiac opacification may represent pneumonia and/or atelectasis. Chest/Abdomen/Pelvis CT 03/20/25 16:30 IMPRESSION: Likely perioperative seroma along the anterior abdominal wall. Findings suggesting prior granulomatous disease. No evidence of bowel obstruction. No hiatal hernia as was suspected on the plain film evaluation. Labs Labs: Laboratory Results - last 24 hr 03/19/25 03/20/25 19:06 05:15 WBC 10.0 RBC 4.73 Hgb 12.3 Hct 39.2 MCV 82.9 MCH 26.0 MCHC 31.4 L RDW 16.8 H Plt Count 238 MPV 11.0 H Sodium 139 Potassium 4.7 Chloride 102 Carbon Dioxide 19 L Anion Gap 18 H BUN 63 H D Creatinine 12.74 H Estim Creat Clear Calc 4 Estimated GFR 3 L Glucose 170 H POC Capillary Glucose 176 H Calcium 10.1 Phosphorus 6.9 H Magnesium 2.2 Total Bilirubin 0.9 AST 43 H ALT 13 Alkaline Phosphatase 107 C-Reactive Protein 20.3 H Total Protein 7.6 Albumin 3.7 Procalcitonin 3.7 [place] IgG 18 kDa Band Cancelled [place] IgG 23 kDa Band Cancelled [place] IgG 28 kDa Band Cancelled [place] IgG 30 kDa Band Cancelled [place] IgG 39 kDa Band Cancelled [place] IgG 41 kDa Band Cancelled [place] IgG 45 kDa Band Cancelled [place] IgG 58 kDa Band Cancelled [place] IgG 66 kDa Band Cancelled [place] IgG 93 kDa Band Cancelled [place] IgG Ab (Immblot) Cancelled [place] IgM Ab (Immblot) Cancelled Lyme IgM 23 kDa Band Cancelled Lyme IgM 39 kDa Band Cancelled [place]yme IgM 41 kDa Band Cancelled
[2025-03-21] VITALS (10 sets, daily range): BP systolic 119–130; BP diastolic 41–75; PULSE 103–125; RESP 18–32; TEMP 35.7–37.2; O2SAT 100
[2025-03-21 05:27] LABS: Hematocrit 39.1 % (37.0-47.0); Hemoglobin 12.4 g/dL (12.0-15.0); Immature Granulocyte Percent A 1.5 % (0-0.5); Lymphocytes Absolute Auto 1.25 K/mm3 (0.9-3.2); Mean Corpuscular HGB Conc 31.7 g/dl (32-36); Mean Corpuscular Hemoglobin 26.0 pg (26-34); Mean Corpuscular Volume 82.0 fl (80-100); Nucleated Red Blood Cells Absolute Auto 0.000 K/mm3 (0.0-0.012); Nucleated Red Blood Cells Perc 0.0 % (0.0-0.2); Platelet Count Result 215 k/mm3 (150-375); Red Blood Count 4.77 M/mm3 (4.2-5.4); White Blood Count 10.3 K/mm3 (4.5-10.0)
[2025-03-21 05:39] LABS: Alanine Aminotransferase 27 U/L (6-35); Albumin Level 3.6 g/dL (3.5-5.1); Alkaline Phosphatase 109 U/L (38-126); Anion Gap 19 mmol/L (4-12); Aspartate Amino Transferase 107 U/L (14-36); Bilirubin,Total 1.0 mg/dL (0.2-1.3); Blood Urea Nitrogen 68 mg/dL (7-17); Calcium 9.9 mg/dL (8.4-10.2); Carbon Dioxide 20 mmol/L (22-30); Chloride 98 mmol/L (98-107); Estimated CRCL calculation 4 ml/min; Estimated Glomerular Filt Rate 3; Glucose 196 mg/dL (65-110); Magnesium 2.5 mg/dL (1.6-2.3); Potassium 5.5 mmol/L (3.4-5.0); Sodium 137 mmol/L (137-145); Total Protein 7.6 g/dL (6.3-8.2)
--- NOTE | 2025-03-21 09:21 | P.PNNP_ITS ---
Progress Note: A&P Assessment and Plan (1) End stage renal disease: Code(s): N18.6 - End stage renal disease Status: Chronic Assessment and Plan: * HD labs okay. Volume status is good * To get dialysis tomorrow * Potassium is a little high. We will check later this afternoon * Yesterday's dialysis was suboptimal because of clotting. She was not given heparin because of the LP. * She had an attempt at an MRI before. Now she has so-called will repeat the order. * Apparently they have tried to do EEGs earlier when she was agitated. I asked the nurse to call the EEG lab to give it another try. * volume status looks okay. (2) Altered mental status: Qualifiers: Altered mental status type: disorientation Qualified Code(s): R41.0 - Disorientation, unspecified Code(s): R41.82 - Altered mental status, unspecified Status: Acute Assessment and Plan: * reportedly noted over the last 2 weeks * clinically worse on 03/10 with associated agitation/combative behavior * however, per outpatient dialysis center, her mentation seems to fluctuate even at baseline * but she is usually not combative/uncooperative * CT of brain noted: * no intracranial hemorrhage, mass, or acute infarct * atrophy and chronic white matter changes * related to possible infection(?): * admission UA not suggestive of UTI * however, repeat UA (03/12) noted * questionable pneumonia on CXR * per hospitalist encephalopathy due to pneumonia. It seems worse today. Sodium, calcium, and bicarbonate are okay. B12, folate, and TSH are all okay. Calcium level is normal. Blood gas looked okay. Oxygen was a little bit low but on O2 sat reading she is generally running between 97 and 100. Neurology consult has been ordered. Await the visit. * on empiric antibiotics * the patient is well dialyzed and ESRD should not contribute to her altered mental status * neurology saw the patient. I talked with Dr. Parrish yesterday. He ordered an EEG. * Will try another attempt at an MRI * LP was done (3) Pulmonary edema: Qualifiers: Chronicity: acute Qualified Code(s): J81.0 - Acute pulmonary edema Code(s): J81.1 - Chronic pulmonary edema Status: Acute Assessment and Plan: * as noted by admission CXR: * cardiomegaly with congestive leti and minimal interstitial thickening which is suggestive of cardiac decompensation and pulmonary edema * however, no evidence of respiratory distress or hypoxia * will repeat the chest x-ray today to help with decision of fluid removal tomorrow * Echo results noted: * there is normal left ventricular size with hyperdynamic systolic function * left ventricular ejection fraction is visually estimated to be greater than 70% * right ventricle is normal in size and systolic function * no significant valvular abnormalities * Clinically the patient seems euvolemic. Blood pressure is doing well. She does not require oxygen * Chest x-ray yesterday shows retrocardiac opacification, possibly pneumonia or atelectasis. (4) Pneumonia: Qualifiers: Laterality: left Lung location: lower lobe of lung Pneumonia type: due to unspecified organism Qualified Code(s): J18.9 - Pneumonia, unspecified or ganism Code(s): J18.9 - Pneumonia, unspecified organism Status: Acute Assessment and Plan: * some suggestion by admission CXR and mentioned again in recent chest x-ray * follow culture data - negative to date * on ceftriaxone and doxycycline * on evidence of hypoxia or respiratory distress * on no oxygen. (5) HTN (hypertension): Code(s): I10 - Essential (primary) hypertension Status: Acute Assessment and Plan: * systolic looks better. (6) Anemia: Code(s): D64.9 - Anemia, unspecified Status: Chronic Assessment and Plan: * due to ESRD * H/H still above 11 * holding Epogen for now * hemoglobin 12.4 last check (7) Renal osteodystrophy: Code(s): N25.0 - Renal osteodystrophy Status: Acute Assessment and Plan: Phosphorus level is high. I ordered sevelamer but the patient cannot take because of her mental status. She is not eating much anyway She is getting a tube later today for enteral feedings. Please use Nepro or [employer] Renal which would be low phosphorus Subjective Date/time seen: 03/21/25 09:21 Interval history: Patient calm, unresponsive. Exam Narrative: General: Well-developed female in NAD, sleepy. Heart: normal S1 and S2; no rub or gallop Lungs: Clear Abdomen: soft, nontender, nondistended, positive bowel sounds Extremities: no edema or cyanosis Skin: no rash Neck: supple Objective Data Vital Signs Vital Signs: Vital Signs - 24 hr 03/20/25 09:55 03/20/25 10:08 03/20/25 10:15 Temperature 100 F H Pulse Rate 122 H 121 H 125 H Respiratory Rate 16 Blood Pressure 170/86 H 179/93 H 160/92 H Pulse Oximetry Oxygen Delivery Fraction of Inspired Oxygen 03/20/25 10:30 03/20/25 10:45 03/20/25 11:00 Temperature Pulse Rate 125 H 121 H 125 H Respiratory Rate Blood Pressure 145/86 H 118/61 116/60 Pulse Oximetry Oxygen Delivery Fraction of Inspired Oxygen 03/20/25 11:15 03/20/25 11:30 03/20/25 12:00 Temperature Pulse Rate 127 H 127 H 123 H Respiratory Rate Blood Pressure 134/69 134/57 L Pulse Oximetry Oxygen Delivery Fraction of Inspired Oxygen 03/20/25 12:12 03/20/25 12:15 03/20/25 12:30 Temperature Pulse Rate 121 H 123 H 128 H Respiratory Rate Blood Pressure 155/86 H 149/84 H 158/78 H Pulse Oximetry Oxygen Delivery Fraction of Inspired Oxygen 03/20/25 12:36 03/20/25 12:49 03/20/25 14:00 Temperature 99 F 97.5 F L Pulse Rate 127 H 126 H 129 H Respiratory Rate 18 20 Blood Pressure 145/70 H 154/88 H Pulse Oximetry 100 Oxygen Delivery Fraction of Inspired Oxygen 03/20/25 16:00 03/20/25 16:53 03/20/25 20:00 Temperature Pulse Rate 125 H 120 H Respiratory Rate Blood Pressure 101/82 Pulse Oximetry Oxygen Delivery Fraction of Inspired Oxygen 03/20/25 21:00 03/20/25 22:00 03/21/25 00:00 Temperature 100.4 F H Pulse Rate 125 H 125 H 121 H Respiratory Rate 20 18 Blood Pressure 100/49 L Pulse Oximetry 100 100 Oxygen Delivery Room Air Fraction of Inspired Oxygen 03/21/25 04:00 03/21/25 06:00 03/21/25 08:48 Temperature 98.4 F 99 F Pulse Rate 118 H 123 H 125 H Respiratory Rate 18 32 H Blood Pressure 119/67 123/75 Pulse Oximetry 100 Oxygen Delivery Fraction of Inspired Oxygen Intake/Output Intake/Output: Intake & Output 03/18/25 03/19/25 03/20/2525 23:59 23:59 23:59 23:59 Intake Total 50 0 215.0 Output Total 0 0 1600 Balance 50 0 -1385.0 Meds/Results Medications: Active Medications Generic Name Dose Route Start Last Admin Trade Name Freq PRN Reason Stop Dose Admin Acetaminophen 650 mg 03/10/25 13:39 03/16/25 08:53 Acetaminophen 325 Mg Tablet PO 650 mg Q6H PRN Administration Mild Pain (1-3) or Fever Acetaminophen 650 mg 03/17/25 13:40 Acetaminophen 650 Mg Suppository RECTAL Q6H PRN Mild Pain (1-3) or Fever Allopurinol 200 mg 03/11/25 09:00 03/21/25 07:58 Allopurinol 100 Mg Tablet PO Not Given DAILY ADDISON Amlodipine Besylate 10 mg 03/11/25 09:00 03/21/25 07:58 Amlodipine Besylate 10 Mg Tablet PO Not Given DAILY ADDISON Aspirin 81 mg 03/11/25 09:00 03/21/25 07:59 Aspirin 81 Mg Enteric Tablet PO Not Given DAILY ADDISON Atorvastatin Calcium 80 mg 03/11/25 21:00 03/20/25 20:01 Atorvastatin 40 Mg Tablet PO Not Given HS ADDISON Benzonatate 100 mg 03/10/25 13:39 Benzonatate 100 Mg Capsule PO TID PRN Cough Bisacodyl 10 mg 03/14/25 14:26 Bisacodyl 10 Mg Suppository RECTAL DAILY PRN Constipation Guaifenesin 600 mg 03/10/25 13:39 Guaifenesin 12 Hr 600 Mg Tabcr PO Q12HR PRN Congestion Heparin Sodium (Porcine) 5,000 units 03/20/25 21:00 03/21/25 08:44 Heparin Sodium 5,000 Units/Ml Vial SUB-Q 5,000 units Q12HR ADDISON Administration Albumin Human 50 mls @ 999 mls/hr 03/10/25 12:49 Albutein IVPB 04/09/25 12:48 Q10M PRN HYPOTENSION Levetiracetam 750 mg/ Dextrose 107.5 mls @ 430 mls/hr 03/20/25 09:00 03/21/25 08:44 IVPB 430 mls/hr Q12HR ADDISON Administration Lorazepam 2 mg 03/19/25 19:18 03/19/25 19:25 Lorazepam Inj (*Crx) 2 Mg/Ml Vial IV PUSH 2 mg Q2HR PRN Administration seizure Montelukast Sodium 10 mg 03/11/25 21:00 03/20/25 20:02 Montelukast Sodium 10 Mg Tablet PO Not Given HS ADDISON Polyethylene Glycol 17 gm 03/14/25 14:26 03/16/25 17:41 Polyethylene Glycol 3350 17 Gm Powd.Pack PO 17 gm DAILY PRN Administration Constipation Fluticasone/Salmeterol 2 puff 03/11/25 08:00 03/21/25 07:58 Fluticasone/Salmeterol 115-21 Mcg Inhaler 1 Puff INHALATION Not Given Q12HRT ADDISON Sevelamer Carbonate 0.8 gm 03/19/25 08:00 03/21/25 07:59 Sevelamer Carbonate 0.8 Gm Oral Powder Packet PO Not Given TIDWM [facility] Radiology Results: ITS Impressions Head CT 03/10/25 07:36 Impression: No intracranial hemorrhage, mass, or acute infarct. Atrophy and chronic white matter changes, as above. Brain MRI 03/18/25 15:19 IMPRESSION: Severely motion limited examination. No definite evidence of large intracranial hemorrhage or large vessel infarct. Displaced lens in the right globe. Consider repeat imaging, with sedation if clinically appropriate. Chest X-Ray 03/19/25 11:43 Impression: 1: Retrocardiac opacification may represent pneumonia and/or atelectasis. Chest/Abdomen/Pelvis CT 03/20/25 16:30 IMPRESSION: Likely perioperative seroma along the anterior abdominal wall. Findings suggesting prior granulomatous disease. No evidence of bowel obstruction. No hiatal hernia as was suspected on the plain film evaluation. Labs Labs: Laboratory Results - last 24 hr 03/21/25 04:46 WBC 10.3 H RBC 4.77 Hgb 12.4 Hct 39.1 MCV 82.0 MCH 26.0 MCHC 31.7 L RDW 16.8 H Plt Count 215 MPV 12.2 H Immature Gran % (Auto) 1.5 H Neut % (Auto) 68.6 Lymph % (Auto) 12.1 L [place] % (Auto) 16.7 H Eos % (Auto) 0.5 Baso % (Auto) 0.6 Lymph # (Auto) 1.25 [place] # (Auto) 1.7 H Eos # (Auto) 0.1 Baso # (Auto) 0.1 Abs Immat Gran (auto) 0.15 H Absolute Neuts (auto) 7.1 H Absolute Nucleated RBC 0.000 Nucleated RBC % 0.0 Sodium 137 Potassium 5.5 H Chloride 98 Carbon Dioxide 20 L Anion Gap 19 H BUN 68 H Creatinine 13.28 H Estim Creat Clear Calc 4 Estimated GFR 3 L Glucose 196 H Calcium 9.9 Phosphorus 7.1 H Magnesium 2.5 H Total Bilirubin 1.0 AST 107 H ALT 27 Alkaline Phosphatase 109 Total Protein 7.6 Albumin 3.6
--- NOTE | 2025-03-21 10:56 | PCPTNOTE ---
pt is not medically able to participate in physical therapy at this time, she is unable to respond to cues and does not follow commands needed to participate in treatments, discharging physical therapy orders at this time, please reorder PT orders when patient is able, spoke with LIONEL Torres and Dr. Sarkar and both are in agreement with DC'ing orders
--- NOTE | 2025-03-21 11:11 | PC.NURSE ---
RN called and updated .
--- NOTE | 2025-03-21 12:08 | P.PNIM_ITS ---
Progress Note: A&P Assessment and Plan (1) Altered mental status: Qualifiers: Altered mental status type: disorientation Qualified Code(s): R41.0 - Disorientation, unspecified Code(s): R41.82 - Altered mental status, unspecified Status: Acute Assessment and Plan: not responding to commands and non verbal refused meds and food CT head unremarkable, B12 wnl and Stopped Cefepime today in case patient has Cefepime related neurotoxicity EEG pending LP pending and CSF studies ordered Neurology following and eval noted (2) Pneumonia: Qualifiers: Laterality: left Lung location: lower lobe of lung Pneumonia type: due to unspecified organism Qualified Code(s): J18.9 - Pneumonia, unspecified organism Code(s): J18.9 - Pneumonia, unspecified organism Status: Acute Assessment and Plan: - CXR: Cardiomegaly with congestive leti and minimal interstitial thickening which is suggestive of cardiac decompensation and pulmonary edema. Left basilar atelectasis versus pneumonia with possible. Clinical correlation and follow-up advised. - started on CAP tx: Ceftriaxone and doxycycline on 03/10 - MRSA negative, repeat CXR showed LLL PN A stopped Cefepime today 03/20/25 no fever BC still pending (3) Pulmonary edema: Qualifiers: Chronicity: acute Qualified Code(s): J81.0 - Acute pulmonary edema Code(s): J81.1 - Chronic pulmonary edema Status: Acute Assessment and Plan: - no echo on file, ordered - CXR concerning for cardiomegaly with congestive leti and minimal interstitial thickening which is suggestive of cardiac decompensation and pulmonary edema. ECHO showed hyperdynamic left ventricle with normal size - fluid management via dialysis - monitor I&Os and daily weights - trend renal function continue dialysis (4) ESRD on hemodialysis: Code(s): N18.6 - End stage renal disease; Z99.2 - Dependence on renal dialysis Status: Chronic Assessment and Plan: - creatinine 8.64, BUN 18, GFR 5 continue dialysis nephrology following trend bmp (5) HTN (hypertension): Code(s): I10 - Essential (primary) hypertension Status: Acute Assessment and Plan: - chronic, currently 152/85 - continue home medications: Amlodipine - monitor Plan Acute encephalopathy with seizures likely de sameer seizures vs Cefepime induced neurotoxicity vs infection Cefepipme stopped and LP pending, Carotid duplex unremarkable Continue ppra 750mg per Neuro Levaquin, Vanc and Dexamethasone, unable to ampicillin due to allergy MRI poor study but no acute changes, repeat MRI pending EEG pendign continue monitoring and f/u on the above investigations Neuro on board FTT/protein energy malnutrition patient not taking orally since yesterday discussed with sonPatrice who conferred with other members of the family and consented to tube feeding in [facility] meantime NG tube , dietitian consulted for tube feeding monitor Pneumonia Patient has completed 10 days of Antibiotics however discussed with Dr Franz from radiology who suspects hernia and recommended to obtain CT AP chest CT AP chest no acute changes f/u Diet: Renal GI Prophylaxis: NA DVT Prophylaxis: Sq Lovenox Lines/Tubes: peripheral IV Code Status: full code Subjective Date/time seen: 03/21/25 12:08 Interval history: Patient is obtunded at bedside For NG tube placement, MRI, EEG today Review of Systems Review of Systems: All systems reviewed & are unremarkable except as noted in HPI and below (Limited, altered) Exam Narrative: obtunded Const: General: comfortable and no acute distress Other: , female, nontoxic appearance HENMT: Face/Nose/Sinus: Normal nares present Mouth: Yes moist mucous membranes Eyes: General: appearance normal, both eyes and all related structures Sclera: sclerae normal Pupils: Equal, round and reactive pupils present EOM: EOMs intact bilaterally Resp: Effort & Inspection: normal respiratory effort Auscultation: clear to auscultation bilaterally and diminished lung sounds Cardio: Rate: regular rate and tachycardic Rhythm: regular rhythm Other: S1-S2 present without murmur, rub, ectopy GI: Auscultation: normal bowel sounds Other: Abdomen soft, nondistended, nontender. Normoactive bowel sounds in all quadrants. Skin: General skin exam: normal color and no rashes or lesions noted Wounds: no wounds Neuro: Cranial nerves: Yes Equal, round and reactive pupils present Speech: normal speech Motor exam (neuro): 5/5 motor strength present throughout Se nsory Exam: normal sensation Other: Somnolent Extrem: General: normal to inspection Other: + thrill and bruit to graft in the left upper extremity Psych: Mental Status: mental status grossly normal Affect: normal affect Other: more alert today, still confused Objective Data Vital Signs Vital Signs: Vital Signs - 24 hr 03/20/25 12:12 03/20/25 12:15 03/20/25 12:30 Temperature Pulse Rate 121 H 123 H 128 H Respiratory Rate Blood Pressure 155/86 H 149/84 H 158/78 H Pulse Oximetry Oxygen Delivery Fraction of Inspired Oxygen 03/20/25 12:36 03/20/25 12:49 03/20/25 14:00 Temperature 99 F 97.5 F L Pulse Rate 127 H 126 H 129 H Respiratory Rate 18 20 Blood Pressure 145/70 H 154/88 H Pulse Oximetry 100 Oxygen Delivery Fraction of Inspired Oxygen 03/20/25 16:00 03/20/25 16:53 03/20/25 20:00 Temperature Pulse Rate 125 H 120 H Respiratory Rate Blood Pressure 101/82 Pulse Oximetry Oxygen Delivery Fraction of Inspired Oxygen 03/20/25 21:00 03/20/25 22:00 03/21/25 00:00 Temperature 100.4 F H Pulse Rate 125 H 125 H 121 H Respiratory Rate 20 18 Blood Pressure 100/49 L Pulse Oximetry 100 100 Oxygen Delivery Room Air Fraction of Inspired Oxygen 03/21/25 04:00 03/21/25 06:00 03/21/25 08:00 Temperature 98.4 F Pulse Rate 118 H 123 H 119 H Respiratory Rate 18 Blood Pressure 119/67 Pulse Oximetry 100 Oxygen Delivery Fraction of Inspired Oxygen 03/21/25 08:40 03/21/25 08:48 Temperature 99 F Pulse Rate 125 H Respiratory Rate 32 H Blood Pressure 123/75 Pulse Oximetry Oxygen Delivery Room Air Fraction of Inspired Oxygen Intake/Output Intake/Output: Intake & Output 03/18/25 03/19/25 03/20/25 03/21/25 23:59 23:59 23:59 23:59 Intake Total 50 0 215.0 Output Total 0 0 1600 Balance 50 0 -1385.0 Meds/Results Medications: Active Medications Generic Name Dose Route Start Last Admin Trade Name Freq PRN Reason Stop Dose Admin Acetaminophen 650 mg 03/10/25 13:39 03/16/25 08:53 Acetaminophen 325 Mg Tablet PO 650 mg Q6H PRN Administration Mild Pain (1-3) or Fever Acetaminophen 650 mg 03/17/25 13:40 Acetaminophen 650 Mg Suppository RECTAL Q6H PRN Mild Pain (1-3) or Fever Allopurinol 200 mg 03/11/25 09:00 03/21/25 07:58 Allopurinol 100 Mg Tablet PO Not Given DAILY ADDISON Amlodipine Besylate 10 mg 03/11/25 09:00 03/21/25 07:58 Amlodipine Besylate 10 Mg Tablet PO Not Given DAILY ADDISON Aspirin 81 mg 03/11/25 09:00 03/21/25 07:59 Aspirin 81 Mg Enteric Tablet PO Not Given DAILY ADDISON Atorvastatin Calcium 80 mg 03/11/25 21:00 03/20/25 20:01 Atorvastatin 40 Mg Tablet PO Not Given HS ADDISON Benzonatate 100 mg 03/10/25 13:39 Benzonatate 100 Mg Capsule PO TID PRN Cough Bisacodyl 10 mg 03/14/25 14:26 Bisacodyl 10 Mg Suppository RECTAL DAILY PRN Constipation Dexamethasone Sodium Phosphate 10 mg 03/21/25 12:05 Dexamethasone Sod Phos Inj 10 Mg/Ml 1 Ml Vial IV PUSH Q6H ADDISON Guaifenesin 600 mg 03/10/25 13:39 Guaifenesin 12 Hr 600 Mg Tabcr PO Q12HR PRN Congestion Heparin Sodium (Porcine) 5,000 units 03/20/25 21:00 03/21/25 08:44 Heparin Sodium 5,000 Units/Ml Vial SUB-Q 5,000 units Q12HR ADDISON Administration Albumin Human 50 mls @ 999 mls/hr 03/10/25 12:49 Albutein IVPB 04/09/25 12:48 Q10M PRN HYPOTENSION Levetiracetam 750 mg/ Dextrose 107.5 mls @ 430 mls/hr 03/20/25 09:00 03/21/25 08:44 IVPB 430 mls/hr Q12HR ADDISON Administration Albumin Human 50 mls @ 999 mls/hr 03/21/25 09:29 Albutein IVPB 03/22/25 09:28 Q10M PRN HYPOTENSION Levofloxacin/Dextrose 750 mg in 150 mls @ 100 mls/hr 03/21/25 12:05 Levaquin 750 Mg/D5w 150 Ml IVPB Q24H ADDISON Acyclovir Sodium 800 mg/ 266 mls @ 266 mls/hr 03/21/25 14:00 Dextrose IVPB Q8HR ADDISON Lorazepam 2 mg 03/19/25 19:18 03/19/25 19:25 Lorazepam Inj (*Crx) 2 Mg/Ml Vial IV PUSH 2 mg Q2HR PRN Administration seizure Montelukast Sodium 10 mg 03/11/25 21:00 03/20/25 20:02 Montelukast Sodium 10 Mg Tablet PO Not Given HS ADDISON Polyethylene Glycol 17 gm 03/14/25 14:26 03/16/25 17:41 Polyethylene Glycol 3350 17 Gm Powd.Pack PO 17 gm DAILY PRN Administration Constipation Fluticasone/Salmeterol 2 puff 03/11/25 08:00 03/21/25 07:58 Fluticasone/Salmeterol 115-21 Mcg Inhaler 1 Puff INHALATION Not Given Q12HRT ADDISON Sevelamer Carbonate 0.8 gm 03/19/25 08:00 03/21/25 07:59 Sevelamer Carbonate 0.8 Gm Oral Powder Packet PO Not Given TIDWM ADDISON Vancomycin HCl 1 each 03/21/25 12:05 Vancomycin Pharmacist To Dose IVPB PER PROTOCOL [facility] Radiology Results: ITS Impressions Head CT 03/10/25 07:36 Impression: No intracranial hemorrhage, mass, or acute infarct. Atrophy and chronic white matter changes, as above. Brain MRI 03/18/25 15:19 IMPRESSION: Severely motion limited examination. No definite evidence of large intracranial hemorrhage or large vessel infarct. Displaced lens in the right globe. Consider repeat imaging, with sedation if clinically appropriate. Chest X-Ray 03/19/25 11:43 Impression: 1: Retrocardiac opacification may represent pneumonia and/or atelectasis. Chest/Abdomen/Pelvis CT 03/20/25 16:30 IMPRESSION: Likely perioperative seroma along the anterior abdominal wall. Findings suggesting prior granulomatous disease. No evidence of bowel obstruction. No hiatal hernia as was suspected on the plain film evaluation. Carotid Doppler Study 03/21/25 10:58 Impression: No evidence of flow-limiting stenosis in the carotid arteries. Labs Labs: Laboratory Results - last 24 hr 03/20/25 03/21/25 05:15 04:46 WBC 10.3 H RBC 4.77 Hgb 12.4 Hct 39.1 MCV 82.0 MCH 26.0 MCHC 31.7 L RDW 16.8 H Plt Count 215 MPV 12.2 H Immature Gran % (Auto) 1.5 H Neut % (Auto) 68.6 Lymph % (Auto) 12.1 L Cross % (Auto) 16.7 H Eos % (Auto) 0.5 Baso % (Auto) 0.6 Lymph # (Auto) 1.25 Cross # (Auto) 1.7 H Eos # (Auto) 0.1 Baso # (Auto) 0.1 Abs Immat Gran (auto) 0.15 H Absolute Neuts (auto) 7.1 H Absolute Nucleated RBC 0.000 Nucleated RBC % 0.0 Sodium 137 Potassium 5.5 H Chloride 98 Carbon Dioxide 20 L Anion Gap 19 H BUN 68 H Creatinine 13.28 H Estim Creat Clear Calc 4 Estimated GFR 3 L Glucose 196 H Calcium 9.9 Phosphorus 7.1 H Magnesium 2.5 H Total Bilirubin 1.0 AST 107 H ALT 27 Alkaline Phosphatase 109 Total Protein 7.6 Albumin 3.6 Lyme Total Antibody Negative Quality VTE Prophylaxis VTE prophylaxis: mechanical ordered
--- NOTE | 2025-03-21 12:40 | PCNFU ---
Nutrition Follow-Up Complete: Inadequate oral intake related to loss of appetite, dialysis as evidenced by intakes 5% PO intakes >50% - Not meeting goal Goal: Pt current nutrition is NPO. Nutrition recommendation: Will start tube feeding when NG is placed: Nepro @ goal rate 45 ml/h with flushes 100 ml q 6 hours. Last recorded weight is 93.7 kg. Bowel Motility: +2 BMs 7/24 Labs Reviewed: K+ 5.5, BUN 68, Cre 13.28, Glu 196, Mag 2.5 Meds Noted: Singulair Skin: No skin issues Additional Notes: Pt refused meds and food so NG to be placed today. Tube feeding orders; Nepro @ 45 ml/h to provide 1782 kcal, 80 g protein, 720 ml free water. Flush 100 ml q 6 hours. Total water 1320 ml/d. Meets needs @ 19 kcal/kg, 0.85 g protein/kg. Will advance if needed to meet 100% EER. Monitoring intakes, weights, labs, supplement tolerance, plan of care Follow up in 3 days
--- NOTE | 2025-03-21 13:06 | PC.NURSE ---
Patient went down to ultrasound for lumbar puncture and NG tube around 1300.
[2025-03-21 13:08] LABS: Varicella-Zoster Ab, IgG Reactive (Non Reactive); Varicella-Zoster Ab, IgM <0.91 index (0.00-0.90)
--- NOTE | 2025-03-21 14:28 | CY_PTH ---
PATIENT: Emily Ibrahim LOC: [facility] U#:[id number] AGE/SX: 64/F ROOM: ICU RE03/11/[address]: Андрей Sarkar MD : [id number] BED: 2 DIS: 03/22/2025 SPEC #: [id number] RECD: 03/24/25 11:30 STATUS: ANNA REQ #: [id number] PORFIRIO: 03/21/25 14:[address]: Андрей Sarkar DEPT: [facility] Cytology RECD BY: Vannessa Rangel ENTERED: 03/24/25 11:30 SP TYPE: Cytology OTHR DR: Augustin Matamoros, MD Natividad Abebe, AIR CONDITIONING MANAGERLou Gagnon, MD Rigoberto Gu, MD Navin Ramey, MD Sparkle Mayo, MD Rashad Vazquez, MD Zeyad Trivedi, MD Travon Parrish, MD Daly Haines, MD Cristobal Bethea, MD Miri Franz, MD Maria Guadalupe Aceves, MD Crystal Russell, ADA Castro, MD Aga Franklin, AIR CONDITIONING MANAGERLou Hendrix, DO Adal Bourne, Tissues: A - CSF Procedures: Cytopathology Cytospin
--- NOTE | 2025-03-21 15:01 | PC.NURSE ---
Patient is back to the floor at 1502.
--- NOTE | 2025-03-21 15:18 | PC.NURSE ---
RN called MD Sarkar to inform him that antibiotics will be delayed due to procedures and only has one IV access.
[2025-03-21] MEDS: cefTRIAXone 2 GM in SODIUM CHLORIDE 0.9% IV 100 ML 200 ML IVPB (15:29)
[2025-03-21] MEDS: dexAMETHasone SOD PHOS INJ 10 MG/ML 1 ML VIAL IV PUSH ×2 (15:31→23:26)
[2025-03-21 16:02] LABS: Potassium 6.2 mmol/L (3.4-5.0)
[2025-03-21 16:17] LABS: Nucleated Cell CSF 3 /uL (0-5); Red Blood Cell CSF 1 (0-2)
[2025-03-21 16:18] LABS: Lymphocytes CSF 95 % (40-80); Neutrophils CSF 5 % (0-6)
[2025-03-21] MEDS: VANCOMYCIN 1,750 MG/NS 500 ML 1,750 MG/500 ML BAG 250 MG IVPB (16:59)
--- NOTE | 2025-03-21 18:21 | PC.NURSE ---
RN received critical potassium of 6.2. Dr. Bethea ordered insulin and D50 and medications given via NG tube. RN and paint spraying machine operator helper started and noticed NG tube was visible at the front of her mouth. paint spraying machine operator helper ordered STAT X-ray. RN cannot start tube feedings until NG tube is placed correctly. Multiple people are also trying to get IV access on her as her IV is starting to go out. Patient's IV is needed for the insulin and D50.
[2025-03-21] MEDS: DEXTROSE 50% 25 GM/50 ML SYRINGE IV PUSH (18:37)
[2025-03-21] MEDS: INSULIN HUMAN REGULAR (*BKC) 100 UNITS/ML 10 UNITS IV PUSH (18:42)
[2025-03-21] MEDS: WATER IVPB (19:56)
[2025-03-21] MEDS: ACYCLOVIR SODIUM IVPB (19:56)
[2025-03-21] MEDS: DEXTROSE 5% IVPB (19:56)
[2025-03-21] MEDS: SODIUM ZIRCONIUM CYCLOSILICATE 10 GM POWD.PACK PO (20:04)
[2025-03-21] MEDS: FLUTICASONE/SALMETEROL 115-21 MCG INHALER 1 PUFF 2 PUFF INHALATION (21:12)
[2025-03-21 22:26] LABS: Potassium 5.6 mmol/L (3.4-5.0)
[2025-03-21] MEDS: MONTELUKAST SODIUM 10 MG TABLET PO (23:24)
[2025-03-21] MEDS: ATORVASTATIN 40 MG TABLET 80 MG PO (23:24)
[2025-03-22] VITALS (43 sets, daily range): BP systolic 75–166; BP diastolic 33–93; PULSE 92–115; RESP 16–42; TEMP 36.4–37; O2SAT 92–100
[2025-03-22] MEDS: cefTRIAXone 2 GM in SODIUM CHLORIDE 0.9% IV 100 ML 200 ML IVPB (01:12)
[2025-03-22 03:07] LABS: 1,25-Dihydroxy, Vitamin D-2 <10 pg/mL (.); 1,25-Dihydroxy, Vitamin D-3 23 pg/mL (.); Total 1,25-Dihydroxy,Vitamin D 28 pg/mL (.)
[2025-03-22 05:30] LABS: Hematocrit 37.0 % (37.0-47.0); Hemoglobin 11.3 g/dL (12.0-15.0); Immature Granulocyte Percent A 1.4 % (0-0.5); Lymphocytes Absolute Auto 1.08 K/mm3 (0.9-3.2); Mean Corpuscular HGB Conc 30.5 g/dl (32-36); Mean Corpuscular Hemoglobin 25.8 pg (26-34); Mean Corpuscular Volume 84.5 fl (80-100); Nucleated Red Blood Cells Absolute Auto 0.020 K/mm3 (0.0-0.012); Nucleated Red Blood Cells Perc 0.2 % (0.0-0.2); Platelet Count Result 199 k/mm3 (150-375); Red Blood Count 4.38 M/mm3 (4.2-5.4); White Blood Count 10.3 K/mm3 (4.5-10.0)
[2025-03-22] MEDS: dexAMETHasone SOD PHOS INJ 10 MG/ML 1 ML VIAL IV PUSH ×2 (05:45→21:25)
[2025-03-22 05:47] LABS: Alanine Aminotransferase 29 U/L (6-35); Albumin Level 3.3 g/dL (3.5-5.1); Alkaline Phosphatase 103 U/L (38-126); Anion Gap 24 mmol/L (4-12); Aspartate Amino Transferase 111 U/L (14-36); Bilirubin,Total 0.6 mg/dL (0.2-1.3); Blood Urea Nitrogen 88 mg/dL (7-17); Calcium 9.4 mg/dL (8.4-10.2); Carbon Dioxide 13 mmol/L (22-30); Chloride 96 mmol/L (98-107); Glucose 212 mg/dL (65-110); Magnesium 2.9 mg/dL (1.6-2.3); Potassium 5.5 mmol/L (3.4-5.0); Sodium 133 mmol/L (137-145); Total Protein 7.3 g/dL (6.3-8.2)
[2025-03-22 05:58] LABS: Estimated CRCL calculation 4 ml/min; Estimated Glomerular Filt Rate 3
--- NOTE | 2025-03-22 07:45 | PC.NURSE ---
RN called to make sure patient was on the schedule for dialysis.
--- NOTE | 2025-03-22 08:12 | PC.NURSE ---
RN called MD Sarkar to brief him about not having any good vein access and having so many medication orders for the patient. RN updated MD on patient's night and expressed concern especially about giving the patient so much fluid via antibiotics with no output or dialysis. RN asked if MD was here and if he was planning on coming to see patient soon because RN thought patient was worsening. MD said he would come look at her. RN asked if MD was in car. MD was not present in hospital.
--- NOTE | 2025-03-22 09:34 | P.PNNP_ITS ---
Progress Note: A&P Assessment and Plan (1) End stage renal disease: Code(s): N18.6 - End stage renal disease Status: Chronic Assessment and Plan: * HD labs okay. Volume status is good * To get dialysis later today once the catheter is in. * Potassium was higher yesterday. She received insulin glucose, and then when she got her NG tube later on she got Lokelma. * Today the potassium is down. (2) Altered mental status: Qualifiers: Altered mental status type: disorientation Qualified Code(s): R41.0 - Disorientation, unspecified Code(s): R41.82 - Altered mental status, unspecified Status: Acute Assessment and Plan: * reportedly noted over the last 2 weeks * clinically worse on 03/10 with associated agitation/combative behavior * however, per outpatient dialysis center, her mentation seems to fluctuate even at baseline * but she is usually not combative/uncooperative * CT of brain noted: * no intracranial hemorrhage, mass, or acute infarct * atrophy and chronic white matter changes * related to possible infection(?): * admission UA not suggestive of UTI * however, repeat UA (03/12) noted * questionable pneumonia on CXR * per hospitalist encephalopathy due to pneumonia. It seems worse today. Sodium, calcium, and bicarbonate are okay. B12, folate, and TSH are all okay. Calcium level is normal. Blood gas looked okay. Oxygen was a little bit low but on O2 sat reading she is generally running between 97 and 100. Neurology consult has been ordered. Await the visit. * on empiric antibiotics * the patient is well dialyzed and ESRD should not contribute to her altered mental status * neurology saw the patient. I talked with Dr. Parrish yesterday. * EEG was done yesterday but results pending * MRI still not done * LP was done yesterday (3) Pulmonary edema: Qualifiers: Chronicity: acute Qualified Code(s): J81.0 - Acute pulmonary edema Code(s): J81.1 - Chronic pulmonary edema Status: Acute Assessment and Plan: * as noted by admission CXR: * cardiomegaly with congestive leti and minimal interstitial thickening which is suggestive of cardiac decompensation and pulmonary edema * however, no evidence of respiratory distress or hypoxia * will repeat the chest x-ray today to help with decision of fluid removal tomorrow * Echo results noted: * there is normal left ventricular size with hyperdynamic systolic function * left ventricular ejection fraction is visually estimated to be greater than 70% * right ventricle is normal in size and systolic function * no significant valvular abnormalities * Clinically the patient seems euvolemic. Blood pressure is doing well. She does not require oxygen * Chest x-ray yesterday shows retrocardiac opacification, possibly pneumonia or atelectasis. * The patient is on antibiotics (4) Pneumonia: Qualifiers: Laterality: left Lung location: lower lobe of lung Pneumonia type: due to unspecified organism Qualified Code(s): J18.9 - Pneumonia, unspecified organism Code(s): J18.9 - Pneumonia, unspecified organism Status: Acute Assessment and Plan: * some suggestion by admission CXR and mentioned again in recent chest x-ray * follow culture data - negative to date * on ceftriaxone and doxycycline * on evidence of hypoxia or respiratory distress * on no oxygen. (5) HTN (hypertension): Code(s): I10 - Essential (primary) hypertension Status: Acute Assessment and Plan: * systolic looks better. (6) Anemia: Code(s): D64.9 - Anemia, unspecified Status: Chronic Assessment and Plan: * due to ESRD * H/H still above 11 * holding Epogen for now * hemoglobin 12.4 last check (7) Renal osteodystrophy: Code(s): N25.0 - Renal osteodystrophy Status: Acute Assessment and Plan: Phosphorus level is high. I ordered sevelamer but the patient cannot take because of her mental status. She is not eating much anyway She is getting a tube later today for enteral feedings. The phosphorus is higher today. She can start her sevelamer today since the NG tube is in place. Will order it for q.6 hours. Subjective Date/time seen: 03/22/25 09:34 Interval history: Patient is resting comfortably. No seizure activity current She is in the dialysis unit, however her graft is clotted. I called Dr. Hendrix and he will place a catheter for us to do dialysis later. Exam Narrative: General: Well-developed female in NAD, sleepy as she has been the last couple of days. Heart: normal S1 and S2; no rub or gallop Lungs: Clear Abdomen: soft, nontender, nondistended, positive bowel sounds Extremities: no edema or cyanosis Skin: no rash Neck: supple Objective Data Vital Signs Vital Signs: Vital Signs - 24 hr 03/21/25 12:00 03/21/25 15:23 03/21/25 16:00 Temperature 97.4 F L Pulse Rate 117 H 106 H 104 H Respiratory Rate 18 Blood Pressure 125/59 L Pulse Oximetry 100 Oxygen Delivery 03/21/25 19:53 03/21/25 20:00 03/21/25 20:00 Temperature 96.3 F L Pulse Rate 103 H 104 H Respiratory Rate 20 Blood Pressure 130/41 L Pulse Oximetry 100 Oxygen Delivery Room Air 03/22/25 00:00 03/22/25 04:00 03/22/25 06:00 Temperature 97.6 F Pulse Rate 92 95 95 Respiratory Rate 16 Blood Pressure 126/40 L Pulse Oximetry 98 Oxygen Delivery Intake/Output Intake/Output: Intake & Output 03/19/25 03/20/25 03/21/25 03/22/25 23:59 23:59 23:59 23:59 Intake Total 0 215.0 315.0 136 Output Total 0 1600 Balance 0 -1385.0 315.0 136 Meds/Results Medications: Active Medications Generic Name Dose Route Start Last Admin Trade Name Freq PRN Reason Stop Dose Admin Acetaminophen 650 mg 03/10/25 13:39 03/16/25 08:53 Acetaminophen 325 Mg Tablet PO 650 mg Q6H PRN Administration Mild Pain (1-3) or Fever Acetaminophen 650 mg 03/17/25 13:40 Acetaminophen 650 Mg Suppository RECTAL Q6H PRN Mild Pain (1-3) or Fever Allopurinol 200 mg 03/11/25 09:00 03/21/25 07:58 Allopurinol 100 Mg Tablet PO Not Given DAILY ADDISON Amlodipine Besylate 10 mg 03/11/25 09:00 03/21/25 07:58 Amlodipine Besylate 10 Mg Tablet PO Not Given DAILY ADDISON Aspirin 81 mg 03/11/25 09:00 03/21/25 07:59 Aspirin 81 Mg Enteric Tablet PO Not Given DAILY ADDISON Atorvastatin Calcium 80 mg 03/11/25 21:00 03/21/25 23:24 Atorvastatin 40 Mg Tablet PO 80 mg HS ADDISON Administration Benzonatate 100 mg 03/10/25 13:39 Benzonatate 100 Mg Capsule PO TID PRN Cough Bisacodyl 10 mg 03/14/25 14:26 Bisacodyl 10 Mg Suppository RECTAL DAILY PRN Constipation Dexamethasone Sodium Phosphate 10 mg 03/21/25 12:25 03/22/25 05:45 Dexamethasone Sod Phos Inj 10 Mg/Ml 1 Ml Vial IV PUSH 10 mg Q6HR ADDISON Administration Guaifenesin 600 mg 03/10/25 13:39 Guaifenesin 12 Hr 600 Mg Tabcr PO Q12HR PRN Congestion Heparin Sodium (Porcine) 5,000 units 03/20/25 21:00 03/21/25 22:36 Heparin Sodium 5,000 Units/Ml Vial SUB-Q 5,000 units Q12HR ADDISON Administration Albumin Human 50 mls @ 999 mls/hr 03/10/25 12:49 Albutein IVPB 04/09/25 12:48 Q10M PRN HYPOTENSION Levetiracetam 750 mg/ Dextrose 107.5 mls @ 430 mls/hr 03/20/25 09:00 03/22/25 08:34 IVPB 430 mls/hr Q12HR ADDISON Administration Acyclovir Sodium 330 mg/ 256.6 mls @ 256.6 mls/hr 03/21/25 14:00 03/21/25 19:56 Dextrose IVPB 256.6 mls/hr Q24H ADDISON Administration Ceftriaxone Sodium 2 gm/ 100 mls @ 200 mls/hr 03/21/25 13:00 03/22/25 01:12 Sodium Chloride IVPB 200 mls/hr Q12H ADDISON Administration Vancomycin HCl 750 mg in 250 mls @ 250 mls/hr 03/22/25 19:00 Vancomycin 750 Mg/Ns 250 Ml IVPB 03/22/25 19:59 ONCE ONE Lorazepam 2 mg 03/19/25 19:18 03/19/25 19:25 Lorazepam Inj (*Crx) 2 Mg/Ml Vial IV PUSH 2 mg Q2HR PRN Administration seizure Montelukast Sodium 10 mg 03/11/25 21:00 03/21/25 23:24 Montelukast Sodium 10 Mg Tablet PO 10 mg HS ADDISON Administration Polyethylene Glycol 17 gm 03/14/25 14:26 03/16/25 17:41 Polyethylene Glycol 3350 17 Gm Powd.Pack PO 17 gm DAILY PRN Administration Constipation Fluticasone/Salmeterol 2 puff 03/11/25 08:00 03/21/25 21:12 Fluticasone/Salmeterol 115-21 Mcg Inhaler 1 Puff INHALATION 2 puff Q12HRT ADDISON Administration Sevelamer Carbonate 0.8 gm 03/19/25 08:00 03/21/25 15:22 Sevelamer Carbonate 0.8 Gm Oral Powder Packet PO Not Given TIDWM ADDISON Sodium Zirconium Cyclosilicate 10 gm 03/21/25 17:00 03/21/25 20:04 Sodium Zirconium Cyclosilicate 10 Gm Powd.Pack PO 10 gm DAILY@1000 ADDISON Administration Vancomycin HCl 1 each 03/21/25 13:06 Vancomycin For Hemodialysis IVPB PRN PRN Vancomycin Protocol Radiology Results: ITS Impressions Head CT 03/10/25 07:36 Impression: No intracranial hemorrhage, mass, or acute infarct. Atrophy and chronic white matter changes, as above. Brain MRI 03/18/25 15:19 IMPRESSION: Severely motion limited examination. No definite evidence of large intracranial hemorrhage or large vessel infarct. Displaced lens in the right globe. Consider repeat imaging, with sedation if clinically appropriate. Chest X-Ray 03/19/25 11:43 Impression: 1: Retrocardiac opacification may represent pneumonia and/or atelectasis. Chest/Abdomen/Pelvis CT 03/20/25 16:30 IMPRESSION: Likely perioperative seroma along the anterior abdominal wall. Findings suggesting prior granulomatous disease. No evidence of bowel obstruction. No hiatal hernia as was suspected on the plain film evaluation. Carotid Doppler Study 03/21/25 10:58 Impression: No evidence of flow-limiting stenosis in the carotid arteries. NG Tube Placement 03/21/25 15:17 IMPRESSION: Nasogastric tube in good position and ready for immediate use. Lumbar Puncture Fluoroscopy 03/21/25 15:35 IMPRESSION: Technically successful fluoroscopy-guided lumbar puncture at the level of L3/L4, as detailed above. Soft Tissue Neck X-Ray 03/21/25 18:55 IMPRESSION: 1. Nasogastric tube coils in the oral cavity before extending caudally through the esophagus. Abdomen X-Ray 03/21/25 23:15 IMPRESSION: 1. Nasogastric tube tip and proximal side port in the body the stomach. Labs Labs: Laboratory Results - last 24 hr 03/18/25 03/20/25 03/20/25 09:44 05:15 05:15 WBC RBC Hgb Hct MCV MCH MCHC RDW Plt Count MPV Immature Gran % (Auto) Neut % (Auto) Lymph % (Auto) [place] % (Auto) Eos % (Auto) Baso % (Auto) Lymph # (Auto) [place] # (Auto) Eos # (Auto) Baso # (Auto) Abs Immat Gran (auto) Absolute Neuts (auto) Absolute Nucleated RBC Nucleated RBC % Sodium Potassium Chloride Carbon Dioxide Anion Gap BUN Creatinine Estim Creat Clear Calc Estimated GFR Glucose POC Capillary Glucose Calcium Phosphorus Magnesium Total Bilirubin AST ALT Alkaline Phosphatase Total Protein Albumin Cancelled Vit D 1,25-Dihyd Total 28 1,25 Dihydroxy Vit D2 <10 1,25 Dihydroxy Vit D3 23 CSF Source CSF Appearance CSF Color CSF RBC CSF Tot Nucleated Cells CSF Neutrophils CSF Lymphocytes CSF Glucose CSF Total Protein CSF Albumin (MS) Cancelled CSF IgG (MS) Cancelled CSF IgG/Alb Ratio MS Cancelled CSF Alb/Ser Alb Indx MS Cancelled CSF IgG Synth Rate MS Cancelled CSF Oligoclonal Bands Cancelled Cancelled CSF/Serum IgG Index Cancelled Random Vancomycin IgG Cancelled Lyme Total Antibody Negative VZV IgG Antibody Reactive VZV IgM Antibody <0.91 03/21/25 03/21/25 03/21/25 14:28 15:20 18:09 WBC RBC Hgb Hct MCV MCH MCHC RDW Plt Count MPV Immature Gran % (Auto) Neut % (Auto) Lymph % (Auto) [place] % (Auto) Eos % (Auto) Baso % (Auto) Lymph # (Auto) [place] # (Auto) Eos # (Auto) Baso # (Auto) Abs Immat Gran (auto) Absolute Neuts (auto) Absolute Nucleated RBC Nucleated RBC % Sodium Potassium 6.2 H* Chloride Carbon Dioxide Anion Gap BUN Creatinine Estim Creat Clear Calc Estimated GFR Glucose POC Capillary Glucose 224 H Calcium Phosphorus Magnesium Total Bilirubin AST ALT Alkaline Phosphatase Total Protein Albumin Vit D 1,25-Dihyd Total 1,25 Dihydroxy Vit D2 1,25 Dihydroxy Vit D3 CSF Source Csf CSF Appearance Clear CSF Color Colorless CSF RBC 1 CSF Tot Nucleated Cells 3 CSF Neutrophils 5 CSF Lymphocytes 95 H CSF Glucose 106 H CSF Total Protein 43 CSF Albumin (MS) CSF IgG (MS) CSF IgG/Alb Ratio MS CSF Alb/Ser Alb Indx MS CSF IgG Synth Rate MS CSF Oligoclonal Bands CSF/Serum IgG Index Random Vancomycin IgG Lyme Total Antibody VZV IgG Antibody VZV IgM Antibody 03/21/25 03/21/25 03/22/25 19:39 21:58 04:47 WBC 10.3 H RBC 4.38 Hgb 11.3 L Hct 37.0 MCV 84.5 MCH 25.8 L MCHC 30.5 L RDW 16.9 H Plt Count 199 MPV 11.5 H Immature Gran % (Auto) 1.4 H Neut % (Auto) 84.6 H Lymph % (Auto) 10.5 L [place] % (Auto) 3.1 Eos % (Auto) 0.0 Baso % (Auto) 0.4 Lymph # (Auto) 1.08 [place] # (Auto) 0.3 Eos # (Auto) 0.0 Baso # (Auto) 0.0 Abs Immat Gran (auto) 0.14 H Absolute Neuts (auto) 8.8 H Absolute Nucleated RBC 0.020 H Nucleated RBC % 0.2 Sodium 133 L Potassium 5.6 H 5.5 H Chloride 96 L Carbon Dioxide 13 L Anion Gap 24 H BUN 88 H D Creatinine 14.29 H Estim Creat Clear Calc 4 Estimated GFR 3 L Glucose 212 H POC Capillary Glucose 242 H Calcium 9.4 Phosphorus 7.7 H Magnesium 2.9 H Total Bilirubin 0.6 AST 111 H ALT 29 Alkaline Phosphatase 103 Total Protein 7.3 Albumin 3.3 L Vit D 1,25-Dihyd Total 1,25 Dihydroxy Vit D2 1,25 Dihydroxy Vit D3 CSF Source CSF Appearance CSF Color CSF RBC CSF Tot Nucleated Cells CSF Neutrophils CSF Lymphocytes CSF Glucose CSF Total Protein CSF Albumin (MS) CSF IgG (MS) CSF IgG/Alb Ratio MS CSF Alb/Ser Alb Indx MS CSF IgG Synth Rate MS CSF Oligoclonal Bands CSF/Serum IgG Index Random Vancomycin 17.9 IgG Lyme Total Antibody VZV IgG Antibody VZV IgM Antibody
--- NOTE | 2025-03-22 10:06 | PC.NURSE ---
Dialysis note 03/22/25: Upon assessment, HD avg is clotted. No bruit/thrill noted. Floor Rn notified. Dr. Bethea notified. Md to room to evaluate avg and agreed with assessment. HD on hold until access placement.
[2025-03-22 10:08] LABS: CMV Quant DNA PCR, Plasma Negative (Negative)
--- NOTE | 2025-03-22 10:10 | PC.NURSE ---
Charge nurse Heraclio texted Antonina and asked on LIONEL Torres's behalf for MD to please call RN. There were concerns about needing an IJ, line, or trialysis catheter.
--- NOTE | 2025-03-22 10:10 | PC.NURSE ---
RN took patient up to dialysis with tech and ran into MD Samson in the [facility] and expressed concern that patient would not make it through dialysis. MD said he would come check her out. RN took patient to dialysis and briefed dialysis nurse, Praveen, as well as did bedside assessment with dialysis nurse. Briefly after Praveen called RN and asked for RN to return to dialysis as he found the dialysis fissula was no longer working. RN came back up and brought MD Bethea with her. MD Bethea, LIONEL Morton, and LIONEL Torres agreed patient was not in the best condition and needed dialysis as soon as possible. MD Bethea and LIONEL Torres notified and consulted MD Sarkar and surgery MD Langford. Patient returned to the floor and had procedure done bedside for a trialysis.
--- NOTE | 2025-03-22 10:13 | PC.NURSE ---
RN called MD Sarkar twice with no answer.
--- NOTE | 2025-03-22 10:46 | PC.NURSE ---
MD Sarkar texted charge nurse back stating already spoke to.
--- NOTE | 2025-03-22 10:47 | PC.NURSE ---
LIONEL Torres used charge nurse Heraclio's phone and texted Antonina to please call.
--- NOTE | 2025-03-22 11:08 | PC.NURSE ---
RN called [facility] to see if Nntorres was around because RN was worried about patient's condition.
--- NOTE | 2025-03-22 11:09 | PC.NURSE ---
RN called [facility] to see if Antonina was around because RN was worried about patient's condition.
--- NOTE | 2025-03-22 11:10 | PC.NURSE ---
RN received phone call from MD Sarkar that stated he was fine with moving patient to IMU and would put orders in for her to transfer after dialysis.
--- NOTE | 2025-03-22 12:00 | P.CONGS_ITS ---
Assessment and Plan Assessment and plan (1) ESRD on hemodialysis: Code(s): N18.6 - End stage renal disease; Z99.2 - Dependence on renal dialysis Status: Chronic Assessment and Plan: * Patient seen and examined. Chart reviewed for pertinent history. Patient is in need of hemodialysis but her current dialysis access is clotted off. Will place bedside temporary Homer dialysis catheter. Dialysis orders per Nephrology. Will follow as needed. (2) Altered mental status: Qualifiers: Altered mental status type: disorientation Qualified Code(s): R41.0 - Disorientation, unspecified Code(s): R41.82 - Altered mental status, unspecified Status: Acute (3) HAP (hospital-acquired pneumonia): Code(s): J18.9 - Pneumonia, unspecified organism; Y95 - Nosocomial condition Status: Acute History of Present Illness Consult details Consult date: 03/22/25 Reason for consult: other (Dialysis access) Requesting physician: Cristobal Bethea MD Narrative: This is a 64-year-old woman who I am asked to see for placement of a dialysis catheter. She is of tongue did and no history is obtainable from patient. Chart was reviewed. She was hospitalized about 12 days ago with altered mental status. She has been here since then. She has a history of end-stage renal disease and has an AV fistula in her arm. She had been receiving dialysis through this however it recently clotted off. She has hyperkalemia and fluid overload and is in need of hemodialysis. I am asked to place a temporary hemodialysis catheter for dialysis today. Review of Systems 2 Review of Systems: ROS unobtainable: Yes unobtainable due to medical condition and unobtainable due to mental status PMFSH Past Medical History Medical History HLD (hyperlipidemia) HTN (hypertension) Gout ESRD on hemodialysis Social History Social History Smoking status: Unknown if ever smoked Spiritual care concerns: No Meds Home Medications and Allergies Home Medications ?Medication ?Instructions ?Recorded ?Confirmed ?Type allopurinol 100 mg tablet 200 mg PO DAILY 03/10/25 03/10/25 History amlodipine 10 mg tablet 10 mg PO DAILY 03/10/25 03/10/25 History aspirin 81 mg tablet,delayed 81 mg PO DAILY 03/10/25 03/10/25 History release atorvastatin 80 mg tablet 80 mg PO QPM 03/10/25 03/10/25 History fluticasone 250 mcg-salmeterol 50 1 inh inhalation Q12H 03/10/25 03/10/25 History mcg/dose blistr powdr for inhalation (Wixela Inhub) montelukast 10 mg tablet 10 mg PO QPM 03/10/25 03/10/25 History Allergies Allergy/AdvReac Type Severity Reaction Status Date / Time Penicillins Allergy Unknown Verified 03/17/25 08:06 Vital Signs Vital Signs - 24 hr 03/21/25 15:23 03/21/25 16:00 03/21/25 19:53 Temperature 97.4 F L 96.3 F L Pulse Rate 106 H 104 H 103 H Respiratory Rate 18 20 Blood Pressure 125/59 L 130/41 L Pulse Oximetry 100 100 Oxygen Delivery 03/21/25 20:00 03/21/25 20:00 03/22/25 00:00 Temperature Pulse Rate 104 H 92 Respiratory Rate Blood Pressure Pulse Oximetry Oxygen Delivery Room Air 03/22/25 04:00 03/22/25 06:00 Temperature 97.6 F Pulse Rate 95 95 Respiratory Rate 16 Blood Pressure 126/40 L Pulse Oximetry 98 Oxygen Delivery Exam 2 Const: General: patient obtunded and average body habitus Nutritional Appearance: average body habitus Orientation/consciousness: patient obtunded Limitations: altered mental status HENMT: Head: normal to inspection, normocephalic and atraumatic Ears: e xternal ears normal Face/Nose/Sinus: Normal external nose present and Normal nares present Mouth: Yes Normal oral and palatal mucosa present Eyes: Periorbital: periorbital findings normal Eyelids: eyelids normal C onjunctivae: conjunctivae normal Sclera: sclerae normal Neck: Neck: normal visual inspection, no lymphadenopathy, trachea midline, supple and no JVD Resp: Effort & Inspection: symmetric chest movement Auscultation: clear to auscultation bilaterally Percussion: percussion normal Cardio: Rate: regular rate Rhythm: regular rhythm Heart sounds: S1 normal heart sound present and S2 normal heart sound present Peripheral pulses: Peripheral pulses 2+ throughout Neuro: General: patient obtunded and Unable to assess gait Extrem: Right upper extremity: normal to inspection Left upper extremity: n ormal to inspection Results Labs 03/22/25 04:47 03/22/25 04:47 Labs: Abnormal lab results 03/21/25 03/21/25 03/21/25 Range/Units 14:28 15:20 18:09 WBC (4.5-10.0) K/mm3 Hgb (12.0-15.0) g/dL MCH (26-34) pg MCHC (32-36) g/dl RDW (11.5-14.5) % MPV (7.4-10.4) fl Immature Gran % (Auto) (0-0.5) % Neut % (Auto) (45.5-73.1) % Lymph % (Auto) (18.3-44.2) % Abs Immat Gran (auto) (0.00-0.031) K/mm3 Absolute Neuts (auto) (1.3-6.7) K/mm3 Absolute Nucleated RBC (0.0-0.012) K/mm3 Sodium (137-145) mmol/L Potassium 6.2 H* (3.4-5.0) mmol/L Chloride (98-107) mmol/L Carbon Dioxide (22-30) mmol/L Anion Gap (4-12) mmol/L BUN (7-17) mg/dL Creatinine (0.7-1.0) mg/dL Estimated GFR (59 - ) Glucose (65-110) mg/dL POC Capillary Glucose 224 H (65-105) mg/dl Phosphorus (2.5-4.5) mg/dL Magnesium (1.6-2.3) mg/dL AST (14-36) U/L Albumin (3.5-5.1) g/dL CSF Lymphocytes 95 H (40-80) % CSF Glucose 106 H (40-70) mg/dL 03/21/25 03/21/25 03/22/25 Range/Units 19:39 21:58 04:47 WBC 10.3 H (4.5-10.0) K/mm3 Hgb 11.3 L (12.0-15.0) g/dL MCH 25.8 L (26-34) pg MCHC 30.5 L (32-36) g/dl RDW 16.9 H (11.5-14.5) % MPV 11.5 H (7.4-10.4) fl Immature Gran % (Auto) 1.4 H (0-0.5) % Neut % (Auto) 84.6 H (45.5-73.1) % Lymph % (Auto) 10.5 L (18.3-44.2) % Abs Immat Gran (auto) 0.14 H (0.00-0.031) K/mm3 Absolute Neuts (auto) 8.8 H (1.3-6.7) K/mm3 Absolute Nucleated RBC 0.020 H (0.0-0.012) K/mm3 Sodium 133 L (137-145) mmol/L Potassium 5.6 H 5.5 H (3.4-5.0) mmol/L Chloride 96 L (98-107) mmol/L Carbon Dioxide 13 L (22-30) mmol/L Anion Gap 24 H (4-12) mmol/L BUN 88 H D (7-17) mg/dL Creatinine 14.29 H (0.7-1.0) mg/dL Estimated GFR 3 L (59 - ) Glucose 212 H (65-110) mg/dL POC Capillary Glucose 242 H (65-105) mg/dl Phosphorus 7.7 H (2.5-4.5) mg/dL Magnesium 2.9 H (1.6-2.3) mg/dL AST 111 H (14-36) U/L Albumin 3.3 L (3.5-5.1) g/dL CSF Lymphocytes (40-80) % CSF Glucose (40-70) mg/dL Diabetes panel 03/20/25 03/21/25 03/21/25 Range/Units 05:15 15:20 21:58 Sodium (137-145) mmol/L Potassium 6.2 H* 5.6 H (3.4-5.0) mmol/L Chloride (98-107) mmol/L Carbon Dioxide (22-30) mmol/L BUN (7-17) mg/dL Creatinine (0.7-1.0) mg/dL Glucose (65-110) mg/dL Calcium (8.4-10.2) mg/dL AST (14-36) U/L ALT (6-35) U/L Alkaline Phosphatase (38-126) U/L Total Protein (6.3-8.2) g/dL Albumin Cancelled 03/22/25 Range/Units 04:47 Sodium 133 L (137-145) mmol/L Potassium 5.5 H (3.4-5.0) mmol/L Chloride 96 L (98-107) mmol/L Carbon Dioxide 13 L (22-30) mmol/L BUN 88 H D (7-17) mg/dL Creatinine 14.29 H (0.7-1.0) mg/dL Glucose 212 H (65-110) mg/dL Calcium 9.4 (8.4-10.2) mg/dL AST 111 H (14-36) U/L ALT 29 (6-35) U/L Alkaline Phosphatase 103 (38-126) U/L Total Protein 7.3 (6.3-8.2) g/dL Albumin 3.3 L Calcium panel 03/20/25 03/22/25 Range/Units 05:15 04:47 Calcium 9.4 (8.4-10.2) mg/dL Phosphorus 7.7 H (2.5-4.5) mg/dL Albumin Cancelled 3.3 L Pituitary panel 03/21/25 03/21/25 03/22/25 Range/Units 15:20 21:58 04:47 Sodium 133 L (137-145) mmol/L Potassium 6.2 H* 5.6 H 5.5 H (3.4-5.0) mmol/L Chloride 96 L (98-107) mmol/L Carbon Dioxide 13 L (22-30) mmol/L BUN 88 H D (7-17) mg/dL Creatinine 14.29 H (0.7-1.0) mg/dL Glucose 212 H (65-110) mg/dL Calcium 9.4 (8.4-10.2) mg/dL Adrenal panel 03/20/25 03/21/25 03/21/25 Range/Units 05:15 15:20 21:58 Sodium (137-145) mmol/L Potassium 6.2 H* 5.6 H (3.4-5.0) mmol/L Chloride (98-107) mmol/L Carbon Dioxide (22-30) mmol/L BUN (7-17) mg/dL Creatinine (0.7-1.0) mg/dL Glucose (65-110) mg/dL Calcium (8.4-10.2) mg/dL Total Bilirubin (0.2-1.3) mg/dL AST (14-36) U/L ALT (6-35) U/L Alkaline Phosphatase (38-126) U/L Total Protein (6.3-8.2) g/dL Albumin Cancelled 03/22/25 Range/Units 04:47 Sodium 133 L (137-145) mmol/L Potassium 5.5 H (3.4-5.0) mmol/L Chloride 96 L (98-107) mmol/L Carbon Dioxide 13 L (22-30) mmol/L BUN 88 H D (7-17) mg/dL Creatinine 14.29 H (0.7-1.0) mg/dL Glucose 212 H (65-110) mg/dL Calcium 9.4 (8.4-10.2) mg/dL Total Bilirubin 0.6 (0.2-1.3) mg/dL AST 111 H (14-36) U/L ALT 29 (6-35) U/L Alkaline Phosphatase 103 (38-126) U/L Total Protein 7.3 (6.3-8.2) g/dL Albumin 3.3 L All other labs normal. Imaging Additional studies: ITS Impressions Head CT 03/10/25 07:36 Impression: No intracranial hemorrhage, mass, or acute infarct. Atrophy and chronic white matter changes, as above. Chest X-Ray 03/10/25 10:24 IMPRESSION: Cardiomegaly with congestive leti and minimal interstitial thickening which is suggestive of cardiac decompensation and pulmonary edema. Left basilar atelectasis versus pneumonia with possible. Clinical correlation and follow-up advised. Chest X-Ray 03/16/25 09:51 Impression: Possible mild bibasilar pulmonary edema. Consider pneumonia in the left lung base. Brain MRI 03/18/25 15:19 IMPRESSION: Severely motion limited examination. No definite evidence of large intracranial hemorrhage or large vessel infarct. Displaced lens in the right globe. Consider repeat imaging, with sedation if clinically appropriate. Chest X-Ray 03/19/25 11:43 Impression: 1: Retrocardiac opacification may represent pneumonia and/or atelectasis. Chest/Abdomen/Pelvis CT 03/20/25 16:30 IMPRESSION: Likely perioperative seroma along the anterior abdominal wall. Findings suggesting prior granulomatous disease. No evidence of bowel obstruction. No hiatal hernia as was suspected on the plain film evaluation. Carotid Doppler Study 03/21/25 10:58 Impression: No evidence of flow-limiting stenosis in the carotid arteries. NG Tube Placement 03/21/25 15:17 IMPRESSION: Nasogastric tube in good position and ready for immediate use. Lumbar Puncture Fluoroscopy 03/21/25 15:35 IMPRESSION: Technically successful fluoroscopy-guided lumbar puncture at the level of L3/L4, as detailed above. Soft Tissue Neck X-Ray 03/21/25 18:55 IMPRESSION: 1. Nasogastric tube coils in the oral cavity before extending caudally through the esophagus. Abdomen X-Ray 03/21/25 19:06 IMPRESSION: 1. Nasogastric tube tip in proximal side port in the body the stomach. Abdomen X-Ray 03/21/25 20:52 IMPRESSION: 1. Is a gastric tube tip in proximal side port at the gastric antrum. Could consider withdrawal by [address] the tip in proximal side port in the distal body of the stomach. Abdomen X-Ray 03/21/25 23:15 IMPRESSION: 1. Nasogastric tube tip and proximal side port in the body the stomach.
--- NOTE | 2025-03-22 12:07 | P.OP_ITS ---
Procedure Note - Detailed Date of Procedure 03/22/25 Pre-op Diagnosis ESRD on HD, AMS Post-op Diagnosis Same Procedure Performed Right IJ Homer dialysis catheter placement using ultrasound guidance Surgeon Fabrizio Hendrix DO Anesthesia Local (1% Lidocaine) Indications End-stage renal disease on hemodialysis, current AV fistula in the arm clotted. Findings SonoSite ultrasound was used to identify the right internal jugular vein. This was visualized as a compressible vessel just lateral to the pulsatile carotid artery. The 18 gauge introducer needle was advanced under ultrasound guidance. The guidewire advanced smoothly followed by the dilators and a 12 Hungarian triple- lumen 16 cm dialysis catheter. Chest x-ray is pending to confirm adequate placement location. Description of Procedure Procedure, risks, benefits, and alternatives were discussed with the patient's family. Written consent was obtained and placed in chart prior to procedure. Patient was placed supine in hospital bed and placed in slight Trendelenburg position. Time-out was done to confirm patient and procedure. The right neck and chest area was prepped and draped in sterile fashion using chlorhexidine prep. SonoSite ultrasound was used to identify the right internal jugular vein. 1% lidocaine was infiltrated directly over this area. An 18 gauge introducer needle was advanced under ultrasound guidance directly into the right internal jugular vein. Dark nonpulsatile blood was aspirated. A 0.035 in guidewire was then advanced through the needle. The guidewire advanced smoothly. The needle was then withdrawn leaving the guidewire in place. A small herberth incision was made at the insertion site using an 11 blade scalpel. The blue dilators were then advanced over the guidewire to dilate the vessel. The 12 Hungarian triple lumen 16 cm dialysis catheter was then advanced over the guidewire until it was in place. The guidewire was removed. All 3 lumens were then aspirated and flushed with sterile saline. All 3 lumens function with ease. Caps were placed over the lumens. Glue was placed at the insertion site and the catheter was secured in place using 3 0 nylon simple interrupted sutures. A Tegaderm emi ssing was then applied over top. The patient was then sat up in bed and chest x-ray was ordered to confirm placement. Implants 12 Hungarian triple-lumen 16 cm dialysis catheter Estimated Blood Loss 5 Urine Output 0 Complications No immediate complications Condition Stable Disposition No change [facility] Billing Surgery - Charge Forward: Surgery Billing
--- NOTE | 2025-03-22 12:48 | PM.IMPN ---
Progress Note: A&P Assessment and Plan (1) Altered mental status: Qualifiers: Altered mental status type: disorientation Qualified Code(s): R41.0 - Disorientation, unspecified Code(s): R41.82 - Altered mental status, unspecified Status: Acute Assessment and Plan: not responding to commands and non verbal refused meds and food CT head unremarkable, B12 wnl and Stopped Cefepime today in case patient has Cefepime related neurotoxicity EEG pending S/p LP, CSF showed normal WBC, RBC, protein but with lymphocytosis Contineu Antibiotics, Acyclovir adn Dexamethasone for now Neurology following and eval noted (2) Pneumonia: Qualifiers: Laterality: left Lung location: lower lobe of lung Pneumonia type: due to unspecified organism Qualified Code(s): J18.9 - Pneumonia, unspecified organism Code(s): J18.9 - Pneumonia, unspecified organism Status: Acute Assessment and Plan: - CXR: Cardiomegaly with congestive leti and minimal interstitial thickening which is suggestive of cardiac decompensation and pulmonary edema. Left basilar atelectasis versus pneumonia with possible. Clinical correlation and follow-up advised. - started on CAP tx: Ceftriaxone and doxycycline on 03/10 - MRSA negative, repeat CXR showed LLL PN A stopped Cefepime today 03/20/25 no fever BC still pending (3) Pulmonary edema: Qualifiers: Chronicity: acute Qualified Code(s): J81.0 - Acute pulmonary edema Code(s): J81.1 - Chronic pulmonary edema Status: Acute Assessment and Plan: - no echo on file, ordered - CXR concerning for cardiomegaly with congestive leti and minimal interstitial thickening which is suggestive of cardiac decompensation and pulmonary edema. ECHO showed hyperdynamic left ventricle with normal size - fluid management via dialysis - monitor I&Os and daily weights - trend renal function continue dialysis (4) ESRD on hemodialysis: Code(s): N18.6 - End stage renal disease; Z99.2 - Dependence on renal dialysis Status: Chronic Assessment and Plan: - creatinine 8.64, BUN 18, GFR 5 continue dialysis nephrology following trend bmp (5) HTN (hypertension): Code(s): I10 - Essential (primary) hypertension Status: Acute Assessment and Plan: - chronic, currently 152/85 - continue home medications: Amlodipine - monitor Plan Acute encephalopathy with seizures likely de sameer seizures vs Cefepime induced neurotoxicity vs infection Cefepipme stopped and LP pending, Carotid duplex unremarkable Continue Keppra 750mg per Neuro Levaquin, Vanc and Dexamethasone, unable to ampicillin due to allergy MRI poor study but no acute changes, repeat MRI pending EEG pending continue monitoring and f/u on the above investigations Neuro on board FTT/protein energy malnutrition patient not taking orally since yesterday discussed with sonPatrice who conferred with other members of the family and consented to tube feeding in [facility] meantime cotninue tube feeding monitor Pneumonia Patient has completed 10 days of Antibiotics however discussed with Dr Franz from radiology who suspects hernia and recommended to obtain CT AP chest CT AP chest no acute changes f/u Diet: Renal GI Prophylaxis: NA DVT Prophylaxis: Sq Lovenox Lines/Tubes: peripheral IV Code Status: full code Subjective Date/time seen: 03/22/25 12:48 Interval history: patient still obtunded CSF not indicated of infection Fistula clotted today and patient had trialysis catheter placed Review of Systems Review of Systems: All systems reviewed & are unremarkable except as noted in HPI and below (Limited, altered) Exam Narrative: obtunded Const: General: comfortable and no acute distress Other: , female, nontoxic appearance HENMT: Face/Nose/Sinus: Normal nares present Mouth: Yes moist mucous membranes Eyes: General: appearance normal, both eyes and all related structures Sclera: sclerae normal Pupils: Equal, round and reactive pupils present EOM: EOMs intact bilaterally Resp: Effort & Inspection: normal respiratory effort Auscultation: clear to auscultation bilaterally and diminished lung sounds Cardio: Rate: regular rate and tachycardic Rhythm: regular rhythm Other: S1-S2 present without murmur, rub, ectopy GI: Auscultation: normal bowel sounds Other: Abdomen soft, nondistended, nontender. Normoactive bowel sounds in all quadrants. Skin: General skin exam: normal color and no rashes or lesions noted Wounds: no wounds Neuro: Cranial nerves: Yes Equal, round and reactive pupils present Speech: normal speech Motor exam (neuro): 5/5 motor strength present throughout Sensory Exam: normal sensation Other: Somnolent Extrem: General: normal to inspection Other: + thrill and bruit to graft in the left upper extremity Psych: Mental Status: mental status grossly normal Affect: normal affect Other: more alert today, still confused Objective Data Vital Signs Vital Signs: Vital Signs - 24 hr 03/21/25 15:23 03/21/25 16:00 03/21/25 19:53 Temperature 97.4 F L 96.3 F L Pulse Rate 106 H 104 H 103 H Respiratory Rate 18 20 Blood Pressure 125/59 L 130/41 L Pulse Oximetry 100 100 Oxygen Delivery 03/21/25 20:00 03/21/25 20:00 03/22/25 00:00 Temperature Pulse Rate 104 H 92 Respiratory Rate Blood Pressure Pulse Oximetry Oxygen Delivery Room Air 03/22/25 04:00 03/22/25 06:00 Temperature 97.6 F Pulse Rate 95 95 Respiratory Rate 16 Blood Pressure 126/40 L Pulse Oximetry 98 Oxygen Delivery Intake/Output Intake/Output: Intake & Output 03/19/25 03/20/25 03/21/25 03/22/25 23:59 23:59 23:59 23:59 Intake Total 0 215.0 315.0 136 Output Total 0 1600 0 Balance 0 -1385.0 315.0 136 Meds/Results Medications: Active Medications Generic Name Dose Route Start Last Admin Trade Name Freq PRN Reason Stop Dose Admin Acetaminophen 650 mg 03/10/25 13:39 03/16/25 08:53 Acetaminophen 325 Mg Tablet PO 650 mg Q6H PRN Administration Mild Pain (1-3) or Fever Acetaminophen 650 mg 03/17/25 13:40 Acetaminophen 650 Mg Suppository RECTAL Q6H PRN Mild Pain (1-3) or Fever Allopurinol 200 mg 03/11/25 09:00 03/21/25 07:58 Allopurinol 100 Mg Tablet PO Not Given DAILY ADDISON Amlodipine Besylate 10 mg 03/11/25 09:00 03/21/25 07:58 Amlodipine Besylate 10 Mg Tablet PO Not Given DAILY ADDISON Aspirin 81 mg 03/11/25 09:00 03/21/25 07:59 Aspirin 81 Mg Enteric Tablet PO Not Given DAILY ADDISON Atorvastatin Calcium 80 mg 03/11/25 21:00 03/21/25 23:24 Atorvastatin 40 Mg Tablet PO 80 mg HS ADDISON Administration Benzonatate 100 mg 03/10/25 13:39 Benzonatate 100 Mg Capsule PO TID PRN Cough Bisacodyl 10 mg 03/14/25 14:26 Bisacodyl 10 Mg Suppository RECTAL DAILY PRN Constipation Dexamethasone Sodium Phosphate 10 mg 03/21/25 12:25 03/22/25 05:45 Dexamethasone Sod Phos Inj 10 Mg/Ml 1 Ml Vial IV PUSH 10 mg Q6HR ADDISON Administration Guaifenesin 600 mg 03/10/25 13:39 Guaifenesin 12 Hr 600 Mg Tabcr PO Q12HR PRN Congestion Heparin Sodium (Porcine) 5,000 units 03/20/25 21:00 03/21/25 22:36 Heparin Sodium 5,000 Units/Ml Vial SUB-Q 5,000 units Q12HR ADDISON Administration Albumin Human 50 mls @ 999 mls/hr 03/10/25 12:49 Albutein IVPB 04/09/25 12:48 Q10M PRN HYPOTENSION Levetiracetam 750 mg/ Dextrose 107.5 mls @ 430 mls/hr 03/20/25 09:00 03/22/25 08:34 IVPB 430 mls/hr Q12HR ADDISON Administration Acyclovir Sodium 330 mg/ 256.6 mls @ 256.6 mls/hr 03/21/25 14:00 03/21/25 19:56 Dextrose IVPB 256.6 mls/hr Q24H ADDISON Administration Ceftriaxone Sodium 2 gm/ 100 mls @ 200 mls/hr 03/21/25 13:00 03/22/25 01:12 Sodium Chloride IVPB 200 mls/hr Q12H ADDISON Administration Vancomycin HCl 750 mg in 250 mls @ 250 mls/hr 03/22/25 19:00 Vancomycin 750 Mg/Ns 250 Ml IVPB 03/22/25 19:59 ONCE ONE Lorazepam 2 mg 03/19/25 19:18 03/19/25 19:25 Lorazepam Inj (*Crx) 2 Mg/Ml Vial IV PUSH 2 mg Q2HR PRN Administration seizure Montelukast Sodium 10 mg 03/11/25 21:00 03/21/25 23:24 Montelukast Sodium 10 Mg Tablet PO 10 mg HS ADDISON Administration Polyethylene Glycol 17 gm 03/14/25 14:26 03/16/25 17:41 Polyethylene Glycol 3350 17 Gm Powd.Pack PO 17 gm DAILY PRN Administration Constipation Fluticasone/Salmeterol 2 puff 03/11/25 08:00 03/21/25 21:12 Fluticasone/Salmeterol 115-21 Mcg Inhaler 1 Puff INHALATION 2 puff Q12HRT ADDISON Administration Sevelamer Carbonate 0.8 gm 03/22/25 09:45 Sevelamer Carbonate 0.8 Gm Oral Powder Packet FEED TUBE Q6H ADDISON Sodium Zirconium Cyclosilicate 10 gm 03/21/25 17:00 03/21/25 20:04 Sodium Zirconium Cyclosilicate 10 Gm Powd.Pack PO 10 gm DAILY@1000 ADDISON Administration Vancomycin HCl 1 each 03/21/25 13:06 Vancomycin For Hemodialysis IVPB PRN PRN Vancomycin Protocol Radiology Results: ITS Impressions Head CT 03/10/25 07:36 Impression: No intracranial hemorrhage, mass, or acute infarct. Atrophy and chronic white matter changes, as above. Brain MRI 03/18/25 15:19 IMPRESSION: Severely motion limited examination. No definite evidence of large intracranial hemorrhage or large vessel infarct. Displaced lens in the right globe. Consider repeat imaging, with sedation if clinically appropriate. Chest/Abdomen/Pelvis CT 03/20/25 16:30 IMPRESSION: Likely perioperative seroma along the anterior abdominal wall. Findings suggesting prior granulomatous disease. No evidence of bowel obstruction. No hiatal hernia as was suspected on the plain film evaluation. Carotid Doppler Study 03/21/25 10:58 Impression: No evidence of flow-limiting stenosis in the carotid arteries. NG Tube Placement 03/21/25 15:17 IMPRESSION: Nasogastric tube in good position and ready for immediate use. Lumbar Puncture Fluoroscopy 03/21/25 15:35 IMPRESSION: Technically successful fluoroscopy-guided lumbar puncture at the level of L3/L4, as detailed above. Soft Tissue Neck X-Ray 03/21/25 18:55 IMPRESSION: 1. Nasogastric tube coils in the oral cavity before extending caudally through the esophagus. Abdomen X-Ray 03/21/25 23:15 IMPRESSION: 1. Nasogastric tube tip and proximal side port in the body the stomach. Chest X-Ray 03/22/25 12:20 IMPRESSION: Temporary hemodialysis catheter in good position and ready for immediate use. Labs Labs: Laboratory Results - last 24 hr 03/18/25 03/20/25 03/21/25 09:44 05:15 14:28 WBC RBC Hgb Hct MCV MCH MCHC RDW Plt Count MPV Immature Gran % (Auto) Neut % (Auto) Lymph % (Auto) [place] % (Auto) Eos % (Auto) Baso % (Auto) Lymph # (Auto) [place] # (Auto) Eos # (Auto) Baso # (Auto) Abs Immat Gran (auto) Absolute Neuts (auto) Absolute Nucleated RBC Nucleated RBC % Sodium Potassium Chloride Carbon Dioxide Anion Gap BUN Creatinine Estim Creat Clear Calc Estimated GFR Glucose POC Capillary Glucose Calcium Phosphorus Magnesium Total Bilirubin AST ALT Alkaline Phosphatase Total Protein Albumin Vit D 1,25-Dihyd Total 28 1,25 Dihydroxy Vit D2 <10 1,25 Dihydroxy Vit D3 23 CSF Source Csf CSF Appearance Clear CSF Color Colorless CSF RBC 1 CSF Tot Nucleated Cells 3 CSF Neutrophils 5 CSF Lymphocytes 95 H CSF Glucose 106 H CSF Total Protein 43 Random Vancomycin CMV DNA Quant PCR Negative CMV DNA PCR log IU/mL VZV IgG Antibody Reactive VZV IgM Antibody <0.91 03/21/25 03/21/25 03/21/25 15:20 18:09 19:39 WBC RBC Hgb Hct MCV MCH MCHC RDW Plt Count MPV Immature Gran % (Auto) Neut % (Auto) Lymph % (Auto) [place] % (Auto) Eos % (Auto) Baso % (Auto) Lymph # (Auto) [place] # (Auto) Eos # (Auto) Baso # (Auto) Abs Immat Gran (auto) Absolute Neuts (auto) Absolute Nucleated RBC Nucleated RBC % Sodium Potassium 6.2 H* Chloride Carbon Dioxide Anion Gap BUN Creatinine Estim Creat Clear Calc Estimated GFR Glucose POC Capillary Glucose 224 H 242 H Calcium Phosphorus Magnesium Total Bilirubin AST ALT Alkaline Phosphatase Total Protein Albumin Vit D 1,25-Dihyd Total 1,25 Dihydroxy Vit D2 1,25 Dihydroxy Vit D3 CSF Source CSF Appearance CSF Color CSF RBC CSF Tot Nucleated Cells CSF Neutrophils CSF Lymphocytes CSF Glucose CSF Total Protein Random Vancomycin CMV DNA Quant PCR CMV DNA PCR log IU/mL VZV IgG Antibody VZV IgM Antibody 03/21/25 03/22/25 21:58 04:47 WBC 10.3 H RBC 4.38 Hgb 11.3 L Hct 37.0 MCV 84.5 MCH 25.8 L MCHC 30.5 L RDW 16.9 H Plt Count 199 MPV 11.5 H Immature Gran % (Auto) 1.4 H Neut % (Auto) 84.6 H Lymph % (Auto) 10.5 L [place] % (Auto) 3.1 Eos % (Auto) 0.0 Baso % (Auto) 0.4 Lymph # (Auto) 1.08 [place] # (Auto) 0.3 Eos # (Auto) 0.0 Baso # (Auto) 0.0 Abs Immat Gran (auto) 0.14 H Absolute Neuts (auto) 8.8 H Absolute Nucleated RBC 0.020 H Nucleated RBC % 0.2 Sodium 133 L Potassium 5.6 H 5.5 H Chloride 96 L Carbon Dioxide 13 L Anion Gap 24 H BUN 88 H D Creatinine 14.29 H Estim Creat Clear Calc 4 Estimated GFR 3 L Glucose 212 H POC Capillary Glucose Calcium 9.4 Phosphorus 7.7 H Magnesium 2.9 H Total Bilirubin 0.6 AST 111 H ALT 29 Alkaline Phosphatase 103 Total Protein 7.3 Albumin 3.3 L Vit D 1,25-Dihyd Total 1,25 Dihydroxy Vit D2 1,25 Dihydroxy Vit D3 CSF Source CSF Appearance CSF Color CSF RBC CSF Tot Nucleated Cells CSF Neutrophils CSF Lymphocytes CSF Glucose CSF Total Protein Random Vancomycin 17.9 CMV DNA Quant PCR CMV DNA PCR log IU/mL VZV IgG Antibody VZV IgM Antibody Quality VTE Prophylaxis VTE prophylaxis: mechanical ordered
--- NOTE | 2025-03-22 13:44 | PC.NURSE ---
RN called MD Sarkar to remind and ask for him to put transfer orders in.
--- NOTE | 2025-03-22 13:49 | PC.NURSE ---
RN called MD Chopra and asked if MD could please read EEG done 13+ hours ago. MD Chopra was not present in hospital but said he would be there shortly to read EEG and see patient.
--- NOTE | 2025-03-22 15:03 | PC.NURSE ---
RN noticed telemetry was showing movement and was worried patient was having seizure. RN called dialysis and spoke to dialysis nurse Praveen who stated patient is snoring loudly and he sternal rubbed patient to see if it would change breathing which would have caused movement on the environmental monitoring technician. RN went up to dialysis to assess patient's breathing and counted patient's respirations (charted in vitals). RN told dialysis nurse Praveen she was worried about her breathing and thought patient was using more effort to breathe. RN left to contact MD Sarkar.
--- NOTE | 2025-03-22 15:08 | PC.NURSE ---
RN called MD Sarkar about patient's status in dialysis. MD Sarkar asked RN to put in STAT order for ABGs.
[2025-03-22 15:41] LABS: Alveolar/Arterial O2 Gradient 27.1 mmHg; Fractional Inspired Oxygen 21 %; HCO3 ABG 23.0 mEq/l (22.0-26.0); Oxygen Content ABG 18.9 %vol (16.0-22.0); Oxygen Saturation ABG 97.8 % (95.0-100.0); PCO2 ABG 27.2 mmHg (35.0-45.0); PO2 ABG 90.1 mmHg (80.0-100.0); PO2 FiO2 Ratio Arterial Blood 4.29 %
[2025-03-22 15:46] LABS: Modified Allen's Test Pass; Site Drawn LEFT RADIAL
--- NOTE | 2025-03-22 15:54 | PC.NURSE ---
RN called MD Sarkar twice with no answer.
--- NOTE | 2025-03-22 15:57 | PC.NURSE ---
LIONEL Torres texted MD Sarkar with patient's name and room # as request from .
--- NOTE | 2025-03-22 15:57 | PC.NURSE ---
MD Sarkar called RN. RN updated MD Sarkar of patient's condition and rapid breathing and grunting. RN asked for new orders. MD Sarkar asked for RN to text instead of call.
--- NOTE | 2025-03-22 16:08 | PC.NURSE ---
RN texted MD Sarkar that new orders were put in (STAT chest x-ray and lactic), but is intubation necessary?
--- NOTE | 2025-03-22 16:11 | PC.NURSE ---
MD Sarkar said Not yet. Give morphine IV 2 mg once. I am calling Fifi. RN put in orders for MD Sarkar.
--- NOTE | 2025-03-22 16:13 | WPDNEUROLOGY ---
Neurology EEG Report General Information Date of Study: 03/21/25 TEST Electroencephalogram DIAGNOSIS chronic kidney disease on hemodialysis. Possible concurrent seizure disorder CONDITION OF RECORDING bedside recording EEG NUMBER [id number] CLINICAL HISTORY the patient is a 64 years old with history of changes in mental status. Patient is currently unresponsive. She has been on hemodialysis for acute on chronic kidney failure EEG DESCRIPTION The background activity is predominantly theta activity. Independent periodic complexes were seen over both hemispheres independently frequently throughout the recording. In addition by synchronous triphasic waves were also noted which were frontally dominant. Hyperventilation or photic sure not performed. The background activity remains essentially similar throughout the recording. IMPRESSION This is a significant abnormal EEG due to following is 1. Bihemispheric periodic sharp and wave transients were seen predominantly over the right frontal and left temporal area independently. These findings are seen throughout the recording. Possibility of ongoing seizure activity should be considered however no electrographic buildup was noted such abnormalities may also be seen in postictal state. 2. Triphasic waves were seen such as may be seen with metabolic encephalopathy such as renal disease. 3. Diffuse background slowing suggestive of generalized encephalopathy Clinical correlation recommended. Continuous EEG monitoring if available may be helpful.
[2025-03-22] MEDS: MORPHINE SULFATE (*CRX) 2 MG/ML INJ IV PUSH (16:25)
--- NOTE | 2025-03-22 16:25 | P.PNNEUR_ITS ---
Progress Note: A&P Assessment and Plan (1) Altered mental status: Qualifiers: Altered mental status type: disorientation Qualified Code(s): R41.0 - Disorientation, unspecified Code(s): R41.82 - Altered mental status, unspecified Status: Acute (2) ESRD on hemodialysis: Code(s): N18.6 - End stage renal disease; Z99.2 - Dependence on renal dialysis Status: Chronic Plan The patient had EEG done yesterday shows triphasic waves such as may be seen with renal failure nevertheless there are also independent and wave and at times spikes were seen over right mid frontal and left posterior temporal area suggestive of possible ongoing seizure-like activity nevertheless in view of her condition some asymmetry may be seen and does not necessarily signify seizure activity since the there was no electrographic buildup noted. Continuous EEG monitoring may be helpful. MRI of the brain did not show any significant abnormalities however the study was limited due to motion artifact. Spinal tap was performed which shows protein was 43 and there were only 3 nucleated cell and glucose was normal. Overall findings did not seem to support an intracranial infection however the viral studies still pending. The patient is currently on Keppra Subjective Date/time seen: 03/22/25 16:25 Interval history: The patient is 64 years old with history of end-stage renal disease currently on hemodialysis remains unresponsive. When I saw her she appeared to be hyperventilating. Her blood gases also indicated respiratory alkalosis. She is on hemodialysis at the time when I saw her. Her limbs appear flaccid and no seizure-like activity was noted. Review of Systems Review of Systems: ROS unobtainable: Yes unobtainable due to medical condition and unobtainable due to mental status Exam Narrative: The patient unresponsive hyperventilating. Limbs were flaccid without any appreciable changes in the tone on either side. No seizure-like activity was noted. Objective Data Vital Signs Vital Signs: Vital Signs - 24 hr 03/21/25 19:53 03/21/25 20:00 03/21/25 20:00 Temperature 96.3 F L Pulse Rate 103 H 104 H Respiratory Rate 20 Blood Pressure 130/41 L Pulse Oximetry 100 Oxygen Delivery Room Air 03/22/25 00:00 03/22/25 04:00 03/22/25 06:00 Temperature 97.6 F Pulse Rate 92 95 95 Respiratory Rate 16 Blood Pressure 126/40 L Pulse Oximetry 98 Oxygen Delivery 03/22/25 08:00 03/22/25 08:00 03/22/25 12:00 Temperature Pulse Rate 101 H 97 Respiratory Rate Blood Pressure Pulse Oximetry 100 Oxygen Delivery Room Air 03/22/25 12:26 03/22/25 12:45 03/22/25 13:00 Temperature 97.9 F Pulse Rate 102 H 106 H 111 H Respiratory Rate 20 Blood Pressure 166/90 H 163/93 H 153/87 H Pulse Oximetry 100 Oxygen Delivery 03/22/25 13:15 03/22/25 13:30 03/22/25 13:45 Temperature Pulse Rate 112 H 114 H 112 H Respiratory Rate Blood Pressure 103/68 113/77 114/73 Pulse Oximetry Oxygen Delivery 03/22/25 14:00 03/22/25 14:15 03/22/25 14:30 Temperature Pulse Rate 115 H 110 H 111 H Respiratory Rate Blood Pressure 109/66 102/60 94/67 L Pulse Oximetry Oxygen Delivery 03/22/25 14:45 03/22/25 15:00 03/22/25 15:03 Temperature Pulse Rate 108 H 106 H 104 H Respiratory Rate 42 H Blood Pressure 106/68 107/60 Pulse Oximetry 98 Oxygen Delivery 03/22/25 15:08 03/22/25 15:15 03/22/25 15:30 Temperature Pulse Rate 104 H 106 H 111 H Respiratory Rate 42 H Blood Pressure 103/70 98/70 L Pulse Oximetry 98 Oxygen Delivery Room Air 03/22/25 15:45 03/22/25 16:00 03/22/25 16:15 Temperature Pulse Rate 113 H 105 H 107 H Respiratory Rate Blood Pressure 93/64 L 105/61 88/63 L Pulse Oximetry Oxygen Delivery Intake/Output Intake/Output: Intake & Output 03/19/25 03/20/25 03/21/25 03/22/25 23:59 23:59 23:59 23:59 Intake Total 0 215.0 315.0 136 Output Total 0 1600 0 Balance 0 -1385.0 315.0 136 Meds/Results Medications: Active Medications Generic Name Dose Route Start Last Admin Trade Name Freq PRN Reason Stop Dose Admin Acetaminophen 650 mg 03/10/25 13:39 03/16/25 08:53 Acetaminophen 325 Mg Tablet PO 650 mg Q6H PRN Administration Mild Pain (1-3) or Fever Acetaminophen 650 mg 03/17/25 13:40 Acetaminophen 650 Mg Suppository RECTAL Q6H PRN Mild Pain (1-3) or Fever Allopurinol 200 mg 03/11/25 09:00 03/21/25 07:58 Allopurinol 100 Mg Tablet PO Not Given DAILY ADDISON Amlodipine Besylate 10 mg 03/11/25 09:00 03/21/25 07:58 Amlodipine Besylate 10 Mg Tablet PO Not Given DAILY ADDISON Aspirin 81 mg 03/11/25 09:00 03/21/25 07:59 Aspirin 81 Mg Enteric Tablet PO Not Given DAILY ADDISON Atorvastatin Calcium 80 mg 03/11/25 21:00 03/21/25 23:24 Atorvastatin 40 Mg Tablet PO 80 mg HS ADDISON Administration Benzonatate 100 mg 03/10/25 13:39 Benzonatate 100 Mg Capsule PO TID PRN Cough Bisacodyl 10 mg 03/14/25 14:26 Bisacodyl 10 Mg Suppository RECTAL DAILY PRN Constipation Dexamethasone Sodium Phosphate 10 mg 03/21/25 12:25 03/22/25 05:45 Dexamethasone Sod Phos Inj 10 Mg/Ml 1 Ml Vial IV PUSH 10 mg Q6HR ADDISON Administration Guaifenesin 600 mg 03/10/25 13:39 Guaifenesin 12 Hr 600 Mg Tabcr PO Q12HR PRN Congestion Heparin Sodium (Porcine) 5,000 units 03/20/25 21:00 03/21/25 22:36 Heparin Sodium 5,000 Units/Ml Vial SUB-Q 5,000 units Q12HR ADDISON Administration Albumin Human 50 mls @ 999 mls/hr 03/10/25 12:49 Albutein IVPB 04/09/25 12:48 Q10M PRN HYPOTENSION Levetiracetam 750 mg/ Dextrose 107.5 mls @ 430 mls/hr 03/20/25 09:00 03/22/25 08:34 IVPB 430 mls/hr Q12HR ADDISON Administration Acyclovir Sodium 330 mg/ 256.6 mls @ 256.6 mls/hr 03/21/25 14:00 03/21/25 19:56 Dextrose IVPB 256.6 mls/hr Q24H ADDISON Administration Ceftriaxone Sodium 2 gm/ 100 mls @ 200 mls/hr 03/21/25 13:00 03/22/25 01:12 Sodium Chloride IVPB 200 mls/hr Q12H ADDISON Administration Vancomycin HCl 750 mg in 250 mls @ 250 mls/hr 03/22/25 19:00 Vancomycin 750 Mg/Ns 250 Ml IVPB 03/22/25 19:59 ONCE ONE Lorazepam 2 mg 03/19/25 19:18 03/19/25 19:25 Lorazepam Inj (*Crx) 2 Mg/Ml Vial IV PUSH 2 mg Q2HR PRN Administration seizure Montelukast Sodium 10 mg 03/11/25 21:00 03/21/25 23:24 Montelukast Sodium 10 Mg Tablet PO 10 mg HS ADDISON Administration Polyethylene Glycol 17 gm 03/14/25 14:26 03/16/25 17:41 Polyethylene Glycol 3350 17 Gm Powd.Pack PO 17 gm DAILY PRN Administration Constipation Fluticasone/Salmeterol 2 puff 03/11/25 08:00 03/21/25 21:12 Fluticasone/Salmeterol 115-21 Mcg Inhaler 1 Puff INHALATION 2 puff Q12HRT ADDISON Administration Sevelamer Carbonate 0.8 gm 03/22/25 09:45 Sevelamer Carbonate 0.8 Gm Oral Powder Packet FEED TUBE Q6H ADDISON Sodium Zirconium Cyclosilicate 10 gm 03/21/25 17:00 03/21/25 20:04 Sodium Zirconium Cyclosilicate 10 Gm Powd.Pack PO 10 gm DAILY@1000 ADDISON Administration Vancomycin HCl 1 each 03/21/25 13:06 Vancomycin For Hemodialysis IVPB PRN PRN Vancomycin Protocol Radiology Results: ITS Impressions Head CT 03/10/25 07:36 Impression: No intracranial hemorrhage, mass, or acute infarct. Atrophy and chronic white matter changes, as above. Brain MRI 03/18/25 15:19 IMPRESSION: Severely motion limited examination. No definite evidence of large intracranial hemorrhage or large vessel infarct. Displaced lens in the right globe. Consider repeat imaging, with sedation if clinically appropriate. Chest/Abdomen/Pelvis CT 03/20/25 16:30 IMPRESSION: Likely perioperative seroma along the anterior abdominal wall. Findings suggesting prior granulomatous disease. No evidence of bowel obstruction. No hiatal hernia as was suspected on the plain film evaluation. Carotid Doppler Study 03/21/25 10:58 Impression: No evidence of flow-limiting stenosis in the carotid arteries. NG Tube Placement 03/21/25 15:17 IMPRESSION: Nasogastric tube in good position and ready for immediate use. Lumbar Puncture Fluoroscopy 03/21/25 15:35 IMPRESSION: Technically successful fluoroscopy-guided lumbar puncture at the level of L3/L4, as detailed above. Soft Tissue Neck X-Ray 03/21/25 18:55 IMPRESSION: 1. Nasogastric tube coils in the oral cavity before extending caudally through the esophagus. Abdomen X-Ray 03/21/25 23:15 IMPRESSION: 1. Nasogastric tube tip and proximal side port in the body the stomach. Chest X-Ray 03/22/25 12:20 IMPRESSION: Temporary hemodialysis catheter in good position and ready for immediate use. Labs Labs: Laboratory Results - last 24 hr 03/18/25 03/20/25 03/21/25 09:44 05:15 14:28 WBC RBC Hgb Hct MCV MCH MCHC RDW Plt Count MPV Immature Gran % (Auto) Neut % (Auto) Lymph % (Auto) Roane % (Auto) Eos % (Auto) Baso % (Auto) Lymph # (Auto) Roane # (Auto) Eos # (Auto) Baso # (Auto) Abs Immat Gran (auto) Absolute Neuts (auto) Absolute Nucleated RBC Nucleated RBC % Puncture Site ABG pH ABG pCO2 ABG pO2 ABG PO2/FiO2 Ratio ABG HCO3 ABG O2 Saturation ABG O2 Content ABG Base Excess A-a Gradient Oxyhemoglobin Total Hemoglobin O2 Delivery Device O2 Liters/Min FiO2 Sodium Potassium Chloride Carbon Dioxide Anion Gap BUN Creatinine Estim Creat Clear Calc Estimated GFR Glucose POC Capillary Glucose Calcium Phosphorus Magnesium Total Bilirubin AST ALT Alkaline Phosphatase Total Protein Albumin Vit D 1,25-Dihyd Total 28 1,25 Dihydroxy Vit D2 <10 1,25 Dihydroxy Vit D3 23 CSF Glucose 106 H CSF Total Protein 43 Random Vancomycin CMV DNA Quant PCR Negative CMV DNA PCR log IU/mL 03/21/25 03/21/25 03/21/25 18:09 19:39 21:58 WBC RBC Hgb Hct MCV MCH MCHC RDW Plt Count MPV Immature Gran % (Auto) Neut % (Auto) Lymph % (Auto) Roane % (Auto) Eos % (Auto) Baso % (Auto) Lymph # (Auto) Roane # (Auto) Eos # (Auto) Baso # (Auto) Abs Immat Gran (auto) Absolute Neuts (auto) Absolute Nucleated RBC Nucleated RBC % Puncture Site ABG pH ABG pCO2 ABG pO2 ABG PO2/FiO2 Ratio ABG HCO3 ABG O2 Saturation ABG O2 Content ABG Base Excess A-a Gradient Oxyhemoglobin Total Hemoglobin O2 Delivery Device O2 Liters/Min FiO2 Sodium Potassium 5.6 H Chloride Carbon Dioxide Anion Gap BUN Creatinine Estim Creat Clear Calc Estimated GFR Glucose POC Capillary Glucose 224 H 242 H Calcium Phosphorus Magnesium Total Bilirubin AST ALT Alkaline Phosphatase Total Protein Albumin Vit D 1,25-Dihyd Total 1,25 Dihydroxy Vit D2 1,25 Dihydroxy Vit D3 CSF Glucose CSF Total Protein Random Vancomycin CMV DNA Quant PCR CMV DNA PCR log IU/mL 03/22/25 03/22/25 04:47 15:20 WBC 10.3 H RBC 4.38 Hgb 11.3 L Hct 37.0 MCV 84.5 MCH 25.8 L MCHC 30.5 L RDW 16.9 H Plt Count 199 MPV 11.5 H Immature Gran % (Auto) 1.4 H Neut % (Auto) 84.6 H Lymph % (Auto) 10.5 L Roane % (Auto) 3.1 Eos % (Auto) 0.0 Baso % (Auto) 0.4 Lymph # (Auto) 1.08 Roane # (Auto) 0.3 Eos # (Auto) 0.0 Baso # (Auto) 0.0 Abs Immat Gran (auto) 0.14 H Absolute Neuts (auto) 8.8 H Absolute Nucleated RBC 0.020 H Nucleated RBC % 0.2 Puncture Site Left radial ABG pH 7.545 H* ABG pCO2 27.2 L ABG pO2 90.1 ABG PO2/FiO2 Ratio 4.29 ABG HCO3 23.0 ABG O2 Saturation 97.8 ABG O2 Content 18.9 ABG Base Excess 1.8 A-a Gradient 27.1 Oxyhemoglobin 96.1 Total Hemoglobin 13.9 O2 Delivery Device Room air O2 Liters/Min Not Reportable FiO2 21 Sodium 133 L Potassium 5.5 H Chloride 96 L Carbon Dioxide 13 L Anion Gap 24 H BUN 88 H D Creatinine 14.29 H Estim Creat Clear Calc 4 Estimated GFR 3 L Glucose 212 H POC Capillary Glucose Calcium 9.4 Phosphorus 7.7 H Magnesium 2.9 H Total Bilirubin 0.6 AST 111 H ALT 29 Alkaline Phosphatase 103 Total Protein 7.3 Albumin 3.3 L Vit D 1,25-Dihyd Total 1,25 Dihydroxy Vit D2 1,25 Dihydroxy Vit D3 CSF Glucose CSF Total Protein Random Vancomycin 17.9 CMV DNA Quant PCR CMV DNA PCR log IU/mL
[2025-03-22 16:26] LABS: Uric Acid 9.0 mg/dL (2.5-7.5)
--- NOTE | 2025-03-22 16:27 | PC.NURSE ---
RN returned to dialysis to give Morphine ordered. Patient was almost done with dialysis. RN saw no improvement.
--- NOTE | 2025-03-22 17:16 | PM.CCN ---
Critical Care Event Note Summary Code activated: No Narrative: Called by nursing for patient being unresponsive after dialysis. Patient with apneic breathing ABG ordered CBC and BMP lactic Patient taken to ICU for emergent intubation due to not being able to protect airway no cough no gag Dr. Sarkar working on transferring patient to [facility] for higher level of care due to declining neuro status, need for dialysis and possible sepsis Critical Care Time Critical Care Time: Yes Total Critical Care Time: 45 minutes this is not included intubation Due to a high probability of clinically significant, life threatening deterioration, the patient required my highest level of preparedness to intervene emergently and I personally spent this critical care time directly and personally managing the patient. This critical care time included obtaining a history; examining the patient; pulse oximetry; ordering and review of studies; arranging urgent treatment with development of a management plan; evaluation of patient's response to treatment; frequent reassessment; and discussions with other providers. It was exclusive of separately billable procedures and treating other patients and teaching time. Please see Assessment and Plan section and the rest of the note for further information on patient assessment and treatment. This case had a high probability of a clinically significant, sudden, or life threatening deterioration of this patient's condition which required my full and direct attention, intervention and personal management. Critical care time: 30 - 74 mins
[2025-03-22 17:33] LABS: Alveolar/Arterial O2 Gradient 39.1 mmHg; Fractional Inspired Oxygen 21 %; HCO3 ABG 20.4 mEq/l (22.0-26.0); Oxygen Content ABG 17.7 %vol (16.0-22.0); Oxygen Saturation ABG 96.1 % (95.0-100.0); PCO2 ABG 28.9 mmHg (35.0-45.0); PO2 ABG 76.0 mmHg (80.0-100.0); PO2 FiO2 Ratio Arterial Blood 3.62 %
[2025-03-22 17:33] LABS: Hematocrit 36.7 % (37.0-47.0); Hemoglobin 11.8 g/dL (12.0-15.0); Mean Corpuscular HGB Conc 32.2 g/dl (32-36); Mean Corpuscular Hemoglobin 26.0 pg (26-34); Mean Corpuscular Volume 80.8 fl (80-100); Platelet Count Result 271 k/mm3 (150-375); Red Blood Count 4.54 M/mm3 (4.2-5.4); White Blood Count 23.6 K/mm3 (4.5-10.0)
[2025-03-22 17:40] LABS: Modified Allen's Test Pass; Site Drawn LEFT RADIAL
[2025-03-22 17:54] LABS: Alanine Aminotransferase 48 U/L (6-35); Albumin Level 3.5 g/dL (3.5-5.1); Alkaline Phosphatase 138 U/L (38-126); Anion Gap 22 mmol/L (4-12); Aspartate Amino Transferase 160 U/L (14-36); Bilirubin,Total 0.8 mg/dL (0.2-1.3); Blood Urea Nitrogen 33 mg/dL (7-17); Calcium 8.6 mg/dL (8.4-10.2); Carbon Dioxide 22 mmol/L (22-30); Chloride 93 mmol/L (98-107); Estimated CRCL calculation 8 ml/min; Estimated Glomerular Filt Rate 6; Glucose 179 mg/dL (65-110); Magnesium 2.1 mg/dL (1.6-2.3); Potassium 4.0 mmol/L (3.4-5.0); Sodium 137 mmol/L (137-145); Total Protein 7.6 g/dL (6.3-8.2)
[2025-03-22] MEDS: ETOMIDATE 20 MG/10 ML AMPUL IV PUSH (18:08)
--- NOTE | 2025-03-22 18:24 | WPDPROCEDUR ---
Procedures Intubation Intubation Date: 03/22/25 Intubation Time: 18:00 Consent: Verbal consent for family, emergent A pre-procedural Time-Out was completed immediately before starting the procedure and confirmed: Patient Identification, Site, Procedure, Patient Position and the Availability of Requisite Equipment: Yes Sedative: etomidate Mg given: 20 Laryngoscope: fiber optic video scope ET tube size: 7.5 Tube secured depth (cm): 22 Tube secured location: lips Tube placement confirmation: visualized tube passing through cords, equal breath sounds bilaterally and no breath sounds over epigastrium Patient tolerated procedure: well Intubation complications: none
[2025-03-22] MEDS: NOREPINEPHRINE 8 MG/D5W 250 ML 8 MG/250 ML BAG 9.38 MG IV CONT (18:30)
[2025-03-22] MEDS: FENTANYL 2,500MCG/NS250ML(*CRX 2,500 MCG/250 ML BAG IV CONT (18:44)
--- NOTE | 2025-03-22 18:45 | PC.NURSE ---
This pt was rapidly transfered to ICU bed 2 via bed from [facility] originally, received hemodialysis and only removed 100 ml of fluid. Patient was transferred to room 200 in IMU for mental status changes and agonal breathing. Within 10 minuters of arrival to IMU, Transfered to ICU 2 with assistance of ICU charge Phoebe, bedside RN Melissa originally from [facility] giving bedside report to this Cleve FLOWERS Respiratory therapist at bedside bagging patient. Aga Franklin HULL INSPECTOR arrived at bedside momentarily after. Dr. Vazquez consulted by Aga franklin and was accepted. After receiving etomidate (see orders and mar) Intubated by Aga franklin with ED doc Dr. Castro assisting. Size 7.5 ET placed at a depth of 25 cm. Left Sided breath sounds very distant, stat chest reviewed by Aga at bedside and advised withdrawing tube by 3 cm. 22 cm at the lip with bilateral equal breath sounds.
--- NOTE | 2025-03-22 20:59 | PC.NURSE ---
Spoke with Karla from transfer center. Pt has accepting doctor and room. [address], Dr Miner, Neuro ICU rm 474 bed 12. Confirmed that they do want head CT before transfer.
--- NOTE | 2025-03-22 21:04 | PC.NURSE ---
pt taken for head CT
[2025-03-22] MEDS: MINERAL OIL/WHITE PETROLATUM OINTMENT 1 APPLIC EACH EYE (21:28)
[2025-03-22] MEDS: SEVELAMER CARBONATE 0.8 GM ORAL POWDER PACKET FEED TUBE (21:28)
[2025-03-22] MEDS: MONTELUKAST SODIUM 10 MG TABLET PO (21:28)
[2025-03-22] MEDS: ATORVASTATIN 40 MG TABLET 80 MG PO (21:28)
[2025-03-22] MEDS: ALBUMIN HUMAN 25% 25 GM/100 ML 100 ML IVPB (21:29)
[2025-03-22] MEDS: VANCOMYCIN 750 MG/NS 250 ML 750 MG/250 ML BAG 250 MG IVPB (21:39)
--- NOTE | 2025-03-22 22:06 | PC.NURSE ---
Philip FLOWERS called and given report. will update when patient leaves per ambulance.
--- NOTE | 2025-03-22 22:41 | PC.NURSE ---
Karla at transfer center updated that the ambulance is here and the pt will be leaving shortly, as well as the head CT being negative. Philip on the floor also called and updated that patient will be leaving shortly and that albumin started to infiltrate and 22 gauge peripheral was removed.
--- NOTE | 2025-03-22 22:59 | PC.NURSE ---
Pt left by [facility] at 2249.
[2025-03-23 15:08] LABS: JC Virus DNA,PCR (Whole Blood) Negative (Negative)
--- NOTE | 2025-03-23 16:05 | PM.TDS ---
Transfer Discharge Sum: Prov Provider Date of admission: 03/11/25 10:59 Primary care physician: Harish Castro MD Admitting clinician: Андрей Sarkar MD Consults: 03/10/25 11:11 Consult to Physician Routine Comment: Consulting Provider: Sparkle Mayo Reason for consultation: n: HD Has provider been notified: Yes 03/14/25 Consult to Physician Routine Comment: Consulting Provider: Travon Parrish call or contact centre team leader/MD group to consult: neurology Spoke w/ 0845 03/15 ([facility]) Reason for consultation: ams Has provider been notified: Yes 03/19/25 Consult to Dietitian Routine Reason for Consult:: FTT 03/22/25 Consult to Physician Routine Comment: Dr Hendrix aware of consult per Dr Bethea/[facility] Consulting Provider: Fabrizio Hendrix call or contact centre team leader/ group to consult: Surgery Reason for consultation: IJ placement Has provider been notified: Yes Consult to Physician Routine Comment: Per Dr Ramses Webster aware of consult/[facility] Consulting Provider: Fabrizio Hendrix Reason for consultation: Place temporary catheter for dialysis Has provider been notified: Yes Consult to Physician Routine Comment: Consulting Provider: Rashad Vazquez call or contact centre team leader/MD group to consult: ICU supervisor coremaker Reason for consultation: respiratory distress Has provider been notified: Yes DS: Admitting Diagnosis Discharge Date 03/22/25 Admitting Diagnosis AMS DS: Discharge Diagnosis Discharge Diagnosis (1) End stage renal disease: Code(s): N18.6 - End stage renal disease Status: Chronic (2) Altered mental status: Qualifiers: Altered mental status type: disorientation Qualified Code(s): R41.0 - Disorientation, unspecified Code(s): R41.82 - Altered mental status, unspecified Status: Acute Transfer Discharge Sum: Med Medications Active and Home Medications: Home Medications allopurinol 100 mg tablet 200 mg PO DAILY 03/10/25 [History Confirmed 03/10/25] amlodipine 10 mg tablet 10 mg PO DAILY 03/10/25 [History Confirmed 03/10/25] aspirin 81 mg tablet,delayed release 81 mg PO DAILY 03/10/25 [History Confirmed 03/10/25] atorvastatin 80 mg tablet 80 mg PO QPM 03/10/25 [History Confirmed 03/10/25] fluticasone 250 mcg-salmeterol 50 mcg/dose blistr powdr for inhalation (Micheal Inhub) 1 inh inhalation Q12H 03/10/25 [History Confirmed 03/10/25] montelukast 10 mg tablet 10 mg PO QPM 03/10/25 [History Confirmed 03/10/25] Transfer Discharge Sum: Hosp Hospital Course Hospital course: 64 y/o M with PMH of ESRD (HD on MWF) presents here with altered mental status. The patient presents here from her dialysis center for further evaluation of AMS. HPI obtained through chart review, patient poor historian and requesting not be contacted for collateral at time of interview. Per EMS, staff at her dialysis treatment center reported to them that the patient has been more confused over the last 3 to 4 treatment sessions. She was unable to complete her treatment today. She arrived to the ED A/Ox1. Denies shortness of breath, chest pain, cough, dysuria, fever, chills. reported to ED staff that when she has been confused previously it was secondary to a UTI. Initial VS at presentation: 98.1? F, HR 96, R 18, 170/80, and 100% on RA. ED workup showed: No leukocytosis, hemoglobin 10.8, normal coags, creatinine 8.64 and GFR 5, no significant electrolyte derangements, UA showed 3+ protein/trace glucose/trace ketones. Head CT showed no acute findings and atrophy/chronic white matter changes. CXR showed cardiomegaly with congestive leti an minimal interstitial thickening which is suggestive of cardiac decompensation and pulmonary edema and left basilar atelectasis versus pneumonia with possible effusion. Patient was managed for acute encephalopathy, unclear etiology. was initially thought to be from uremia but did not imporved with dialysis. LP was done and CSF did not support infection. Vera had seizures while hospitalized adn family denied any history of seizures. She was started on keprra IV and neurology was part of her care. EEG was done and showed possibel seizure activity and neurolgoy recommended transfer for continuous EEG. Patient was transferred to [facility] ICU for higher level of care She wasl also managed for pneumonia and completed antibiotics. FTT/proteiin energy mlanutrion and Dobhoff was placed and started on tube feeds. Nephrolgoy was involved and patient was conitnued on dialysis. Fistula malfunction and gen surgeyr was consulted and trialysis catheter placed. Patient was eventually intuabed for respiratory failure adn transferred to our ICU from where she was transferred out. SHe wa stable on transfer Patient Condition: Stable Time Spent with Patient Time attestation: Total time spent providing and/or coordinating transfer services: DS: Data Data Completed and Pending Pending studies at discharge: Pending at discharge 03/19/25 18:19 Cytology [PTH] Routine Labs on day of discharge: Labs from last 24 hours 03/22/25 03/22/25 03/22/25 21:48 19:19 17:23 WBC 23.6 H RBC 4.54 Hgb 11.8 L Hct 36.7 L MCV 80.8 MCH 26.0 MCHC 32.2 RDW 16.7 H Plt Count 271 MPV 11.2 H Puncture Site ABG pH ABG pCO2 ABG pO2 ABG PO2/FiO2 Ratio ABG HCO3 ABG O2 Saturation ABG O2 Content ABG Base Excess A-a Gradient Oxyhemoglobin Total Hemoglobin O2 Delivery Device O2 Liters/Min FiO2 Sodium 137 Potassium 4.0 Chloride 93 L Carbon Dioxide 22 Anion Gap 22 H BUN 33 H D Creatinine 6.45 H Estim Creat Clear Calc 8 Estimated GFR 6 L Glucose 179 H POC Capillary Glucose 210 H Lactic Acid 3.4 H 6.9 H* Uric Acid Calcium 8.6 Phosphorus 6.7 H Magnesium 2.1 Total Bilirubin 0.8 AST 160 H ALT 48 H Alkaline Phosphatase 138 H Total Protein 7.6 Albumin 3.5 LASHAWN Virus DNA (PCR) 03/22/25 03/22/25 03/20/25 17:20 04:36 05:15 WBC RBC Hgb Hct MCV MCH MCHC RDW Plt Count MPV Puncture Site Left radial ABG pH 7.467 H ABG pCO2 28.9 L ABG pO2 76.0 L ABG PO2/FiO2 Ratio 3.62 ABG HCO3 20.4 L ABG O2 Saturation 96.1 ABG O2 Content 17.7 ABG Base Excess -2.1 A-a Gradient 39.1 Oxyhemoglobin 93.7 Total Hemoglobin 13.4 O2 Delivery Device Room air O2 Liters/Min Not Reportable FiO2 21 Sodium Potassium Chloride Carbon Dioxide Anion Gap BUN Creatinine Estim Creat Clear Calc Estimated GFR Glucose POC Capillary Glucose Lactic Acid Uric Acid 9.0 H Calcium Phosphorus Magnesium Total Bilirubin AST ALT Alkaline Phosphatase Total Protein Albumin LASHAWN Virus DNA (PCR) Negative Preliminary micro results at discharge 03/21/25 14:28 Sterile Body Fluid Culture - Preliminary Cerebral Spinal Fluid 03/16/25 18:54 Blood Culture - Preliminary Blood 03/16/25 15:26 Blood Culture - Preliminary Blood
[2025-03-23 22:07] LABS: HSV-1 DNA, CSF Negative (Negative); HSV-2 DNA, CSF Negative (Negative)
--- NOTE | 2025-03-24 07:04 | P.CDI_ITS ---
CDI Query Clarification Request 1) Please clarify is sepsis has been ruled in or ruled out 2)Please review the clinical information below and clarify the respiratory diagnosis the patient is being treated for: Hypoxia or hypoxemia without respiratory failure Respiratory distress without respiratory failure Acute respiratory failure with hypoxia Acute respiratory failure with hypercapnia Acute respiratory failure with hypoxia and hypercapnia Acute on chronic respiratory failure with hypoxia Acute on chronic respiratory failure with hypercapnia Acute on chronic respiratory failure with hypoxia and hypercapnia Acute respiratory distress syndrome (ARDS) Chronic respiratory failure with hypoxia Chronic respiratory failure with hypercapnia Chronic respiratory failure with hypoxia and hypercapnia Other explanation clinical findings, please specify Unable to determine The chart reflects the following: Patient was eventually intuabed for respiratory failure Patient taken to ICU for emergent intubation due to not being able to protect airway no cough no gag Dr. Sarkar working on transferring patient to [facility] for higher level of care due to declining neuro status, need for dialysis and possible sepsis Lactic acid 03/17: 2.0 03/22: 6.9, 3.4 IV abx <Cassidy Todd RN - Last Filed: 03/24/25 08:12> Clarified Diagnosis Clarified Diagnosis: Respiratory distress without respiratory failure Patient was septic with lactic acid of 6.9 <Андрей Sarkar MD - Last Filed: 09:28>
[2025-03-24 15:09] LABS: West Nile Virus, IgG Negative (Negative); West Nile Virus, IgM Negative (Negative)
[2025-03-25 12:08] LABS: Epstein-Barr Virus RT PCR, CSF Negative (Negative)
[2025-03-25 14:08] LABS: VDRL, CSF Non Reactive (Non Rea:<1:1)
== END 2025-03-22 22:49 | DRG 208 ==
LOC: ANHED 07:35 → ANH3MEDSUR 11:54 → ANH2MED 13:16 → ANHIMU 03-22 17:14 → ANHICU 03-22 17:35
PROVIDERS: Emergency Medicine; Internal Medicine Nephrology; Nurse Practitioner; Nurse Practitioner Gerontology; Student in an Organized Health Care Education/Training Program; Admitting Provider Internal Medicine; Emergency Provider Emergency Medicine; PCP Hospitalist; Visit Provider Internal Medicine
DX: J18.9 Pneumonia, unspecified organism (principal); A41.9 Sepsis, unspecified organism; N18.6 End stage renal disease; I12.0 Hypertensive chronic kidney disease with stage 5 chronic kidney disease or end stage renal disease; G93.49 Other encephalopathy; Z68.41 Body mass index [BMI] 40.0-44.9, adult; E46 Unspecified protein-calorie malnutrition; J81.1 Chronic pulmonary edema; T82.868A Thrombosis due to vascular prosthetic devices, implants and grafts, initial encounter; R06.03 Acute respiratory distress; R56.9 Unspecified convulsions; E78.5 Hyperlipidemia, unspecified; D63.1 Anemia in chronic kidney disease; Z99.2 Dependence on renal dialysis; E66.01 Morbid (severe) obesity due to excess calories; N25.0 Renal osteodystrophy
CPT/HCPCS: 31500; 36415; 36600; 62328; 70360; 70450; 70551; 71045; 71260; 74177; 80048; 80053; 80069; 80202; 81001; 82164; 82306; 82607; 82652; 82746; 82805; 82945; 82948; 83605; 83735; 83970; 84100; 84132; 84145; 84157; 84443; 84550; 85018; 85025; 85027; 85610; 85730; 86140; 86592; 86617; 86618; 86706; 86787; 86788; 87040; 87070; 87205; 87340; 87497; 87529; 87641; 87798; 88108; 89051; 93005; 93306; 93880; 94002; 94640; 95816; 96365; 96367; 96372; 96375; 97161; 97165; 99285; A9270; C1751; C1752; G0257; G0378; J0133; J0630; J0692; J0696; J1100; J1644; J1815; J1953; J2060; J2270; J2359; J2430; J3010; J3373; J7030; J7040; J7050; J7060; P9047; Q9967